=== PATIENT | male | born 1960 | race Caucasian/White ===

== ENCOUNTER 2018-04-29 20:05 | Inpatient (IN) | payer MEDICARE, MEDICAID ==
[~2018-04-29] VITALS: Ht 172.7 cm; Wt 62.1 kg
[2018-04-29 20:59] LABS: CLARITY,URINE CLEAR; COLOR,URINE YELLOW
[2018-04-29 21:00] LABS: BILIRUBIN,URINE NEG (NEG); GLUCOSE,URINE NEG (NEG); NITRITE,URINE NEG (NEG); RBC,URINE 0 /HPF (0-2); UROBILINOGEN,URINE 0.2 mg/dL (0.2 mg/dL); WBC,URINE 0 /HPF (0-4)
[2018-04-29 21:03] LABS: BASO # 0.1 x10^3/uL (0.0-0.2); BASO % 1 % (0-3); EOS # 0.2 x10^3/uL (0.0-0.7); EOS % 3 % (0-3); HEMATOCRIT 37.7 % (39.0-53.0); HEMOGLOBIN 12.9 g/dL (13.0-17.5); LYMPH # 2.3 x10^3/uL (1.0-4.8); LYMPH % 32 % (24-48); MEAN CORPUSCULAR HEMOGLOBIN 31 pg (25-35); MEAN CORPUSCULAR HGB CONC 34 g/dL (31-37); MEAN CORPUSCULAR VOLUME 90 fL (79-100); MONO # 0.6 x10^3/uL (0.0-1.1); MONO % 9 % (0-9); NEUT % 55 % (31-73); PLATELET COUNT 321 x10^3/uL (140-400); RED BLOOD COUNT 4.17 x10^6/uL (4.30-5.70); RED CELL DISTRIBUTION WIDTH 14.5 % (11.5-14.5); WHITE BLOOD COUNT 7.2 x10^3/uL (4.0-11.0)
[2018-04-29 21:09] LABS: BACTERIA,URINE FEW /HPF (0-FEW)
[2018-04-29 21:10] LABS: ALBUMIN 3.1 g/dL (3.4-5.0); ALBUMIN/GLOBULIN RATIO 1.1 (1.0-1.7); CALCIUM 8.3 mg/dL (8.5-10.1); CREATININE 0.6 mg/dL (0.7-1.3); GFR 138.9; POTASSIUM 3.6 mmol/L (3.5-5.1); TOTAL BILIRUBIN 0.2 mg/dL (0.2-1.0); TOTAL PROTEIN 5.9 g/dL (6.4-8.2)
--- NOTE | 2018-04-29 21:28 | EKG ---
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
[2018-04-29] MEDS ORDERED: MULT-706 PO (21:48)
[2018-04-29] MEDS ORDERED: BISA10SU2 RC (21:48)
[2018-04-29] MEDS ORDERED: CLON0.5T PO (21:48)
[2018-04-29] MEDS ORDERED: DULO60CA6 PO (21:48)
[2018-04-29] MEDS ORDERED: GABA-585 PO (21:48)
[2018-04-29] MEDS ORDERED: TRAZ-85 PO (21:48)
[2018-04-29] MEDS ORDERED: TAMS0.4C97 PO (21:48)
[2018-04-29] MEDS ORDERED: MIRT15TA PO (21:48)
[2018-04-29] MEDS ORDERED: LACT20SO PO (21:48)
[2018-04-29] MEDS ORDERED: OLAN5TAB9 PO (21:48)
[2018-04-29] MEDS ORDERED: AMLO10TA4 PO (21:48)
[2018-04-29] MEDS ORDERED: BUSP10TA PO (21:48)
[2018-04-29] MEDS ORDERED: DIVA500T4 PO (21:48)
[2018-04-29] MEDS ORDERED: OXYB5TAB7 PO (21:48)
[2018-04-29] MEDS ORDERED: BACL10TA PO (21:48)
[2018-04-29] MEDS ORDERED: LEVO50TA5 PO (21:48)
[2018-04-29] MEDS ORDERED: GABA800T2 PO (21:48)
[2018-04-29] MEDS ORDERED: POTA20TA4 PO (21:48)
[2018-04-29] MEDS ORDERED: ACET325T9 PO (21:48)
[2018-04-29] MEDS ORDERED: ACETAMINOPHEN 325 MG TABLET PO PRN (23:45)
[2018-04-29] MEDS ORDERED: METHYL SALICYLATE/MENTHOL TOPICAL OINTMENT 29GM TUBE. TP PRN (23:45)
[2018-04-29] MEDS ORDERED: NON FORMULARY ITEM (Bisacodyl 10 MG) RC PRN (23:45)
[2018-04-29] MEDS ORDERED: MAGNESIUM HYDROXIDE 2,400 MG/30 ML ORAL.SUSP. PO PRN (23:45)
[2018-04-29] MEDS ORDERED: MAG HYDROX/AL HYDROX/SIMETH 30 ML ORAL.SUSP PO PRN (23:45)
[2018-04-29 23:57] VITALS: BP 133/85
[2018-04-30 00:11] LABS: VAL ACID 30 mcg/mL (50-100)
[2018-04-30] MEDS: GABAPENTIN 100 MG CAPSULE. PO SCH ×5 (00:30→20:19)
[2018-04-30] MEDS ORDERED: BISACODYL 10 MG SUPP.RECT PR PRN (01:45)
--- NOTE | 2018-04-30 03:13 | ED.ADGEN ---
Past History Past Medical History: Depression, Hypertension, Hypothyroid, Schizophrenia, Other Past Surgical History: Other Alcohol Use: None Drug Use: None Adult General Chief Complaint Chief Complaint medical screening exam HPI HPI Patient is a 58 male with schizophrenia with increased hallucinations and worsening psychosis who presents for medical screening evaluation for psychiatric admission. History is limited due to the patient's mental illness.[] Review of Systems Review of Systems Review symptoms as per history of present illness. a []. Allergies Allergies Allergies Coded Allergies Type Severity Reaction Last Updated Verified No Known Drug Allergies 04/29/18 No Physical Exam Physical Exam Constitutional: Well developed, well nourished, no acute distress, non-toxic appearance. [] HENT: Normocephalic, atraumatic, bilateral external ears normal, oropharynx moist, no oral exudates, nose normal. [] Eyes: PERRLA, EOMI, conjunctiva normal, no discharge. [] Neck: Normal range of motion, no tenderness, supple, no stridor. [] Cardiovascular:Heart rate regular rhythm, no murmur [] Lungs & Thorax: Bilateral breath sounds clear to auscultation [] Abdomen: Bowel sounds normal, soft, no tenderness, no masses, no pulsatile masses. [] Skin: Warm, dry, no erythema, no rash. [] Back: No tenderness, no CVA tenderness. [] Extremities: No tenderness, no cyanosis, no clubbing, ROM intact, no edema. [] Neurologic: Alert and oriented, normal motor function, normal sensory function, no focal deficits noted. [] Current Patient Data Vital Signs Vital Signs Date Time Temp Pulse Resp B/P (MAP) Pulse Ox O2 Delivery O2 Flow Rate FiO2 04/29/18 22:49 66 18 95 Room Air 04/29/18 20:38 97.6 Lab Results Laboratory Tests Test 04/29/18 20:31 04/29/18 20:32 Magnesium Level 1.9 mg/dL (1.8-2.4) Valproic Acid Level 30 mcg/mL (50-100) L Valproic Acid Last Dose Date 04/29/18 Valproic Acid Last Dose Time 2345 White Blood Count 7.2 x10^3/uL (4.0-11.0) Red Blood Count 4.17 x10^6/uL (4.30-5.70) L Hemoglobin 12.9 g/dL (13.0-17.5) L Hematocrit 37.7 % (39.0-53.0) L Mean Corpuscular Volume 90 fL (79-100) Mean Corpuscular Hemoglobin 31 pg (25-35) Mean Corpuscular Hemoglobin Concent 34 g/dL (31-37) Red Cell Distribution Width 14.5 % (11.5-14.5) Platelet Count 321 x10^3/uL (140-400) Neutrophils (%) (Auto) 55 % (31-73) Lymphocytes (%) (Auto) 32 % (24-48) Monocytes (%) (Auto) 9 % (0-9) Eosinophils (%) (Auto) 3 % (0-3) Basophils (%) (Auto) 1 % (0-3) Neutrophils # (Auto) 4.0 x10^3uL (1.8-7.7) Lymphocytes # (Auto) 2.3 x10^3/uL (1.0-4.8) Monocytes # (Auto) 0.6 x10^3/uL (0.0-1.1) Eosinophils # (Auto) 0.2 x10^3/uL (0.0-0.7) Basophils # (Auto) 0.1 x10^3/uL (0.0-0.2) Urine Collection Type Unknown Urine Color Yellow Urine Clarity Clear Urine pH 7.0 Urine Specific [place] 1.010 Urine Protein Neg (NEG-TRACE) Urine Glucose (UA) Neg mg/dL (NEG) Urine Ketones (Stick) Neg mg/dL (NEG) Urine Blood Neg (NEG) Urine Nitrite Neg (NEG) Urine Bilirubin Neg (NEG) Urine Urobilinogen Dipstick 0.2 mg/dL (0.2 mg/dL) Urine Leukocyte Esterase Neg (NEG) Urine RBC 0 /HPF (0-2) Urine WBC 0 /HPF (0-4) Urine Squamous Epithelial Cells None /LPF Urine Bacteria Few /HPF (0-FEW) Sodium Level 135 mmol/L (136-145) L Potassium Level 3.6 mmol/L (3.5-5.1) Chloride Level 100 mmol/L (98-107) Carbon Dioxide Level 31 mmol/L (21-32) Anion Gap 4 (6-14) L Blood Urea Nitrogen 9 mg/dL (8-26) Creatinine 0.6 mg/dL (0.7-1.3) L Estimated GFR (Cockcroft-Gault) 138.9 BUN/Creatinine Ratio 15 (6-20) Glucose Level 114 mg/dL (70-99) H Calcium Level 8.3 mg/dL (8.5-10.1) L Total Bilirubin 0.2 mg/dL (0.2-1.0) Aspartate Amino Transferase (AST) 15 U/L (15-37) Alanine Aminotransferase (ALT) 23 U/L (16-63) Alkaline Phosphatase 78 U/L (46-116) Total Protein 5.9 g/dL (6.4-8.2) L Albumin 3.1 g/dL (3.4-5.0) L Albumin/Globulin Ratio 1.1 (1.0-1.7) EKG EKG EK, no acute ST-T wave changes, QTC 400[] Radiology/Procedures Radiology/Procedures [] Course & Med Decision Making Course & Med Decision Making Pertinent Labs and Imaging studies reviewed. (See chart for details) [Medical stable for hospital admission] Final Impression Final Impression [1. Encounter for medical screening for psychiatric admission] Dragon Disclaimer Dragon Disclaimer This electronic medical record was generated, in whole or in part, using a voice recognition dictation system. VITA MCKENZIE DO Apr 30, 2018 03:13
[2018-04-30 06:24] VITALS: BP 125/82
[2018-04-30] MEDS ORDERED: LEVOTHYROXINE 50 MCG TABLET PO SCH (07:00)
[2018-04-30] MEDS ORDERED: LEVOTHYROXINE SODIUM 50 MCG PO SCH (07:30)
[2018-04-30] MEDS: clonazePAM 0.5 MG TABLET PO SCH ×2 (08:39→13:09)
[2018-04-30] MEDS: DULoxetine HCL 60 MG CAPSULE.DR PO SCH (08:39)
[2018-04-30] MEDS: TAMSULOSIN 0.4 MG CAP.ER.24H. PO SCH (08:39)
[2018-04-30] MEDS: OXYBUTYNIN CHLORIDE 5 MG TABLET PO SCH ×2 (08:39→20:19)
[2018-04-30] MEDS: amLODIPine BESYLATE 10 MG TABLET PO SCH (08:40)
[2018-04-30] MEDS: busPIRone 10 MG TABLET. PO SCH ×3 (08:40→20:19)
[2018-04-30] MEDS: GABAPENTIN 400 MG CAPSULE. PO SCH ×4 (08:40→20:20)
[2018-04-30] MEDS: BACLOFEN 10 MG TABLET PO SCH ×4 (08:40→20:20)
[2018-04-30] MEDS: MULTIVITAMIN with MINERAL TABLET. PO SCH (08:40)
[2018-04-30] MEDS: POTASSIUM CHLORIDE 20 MEQ TABLET.ER. PO SCH (08:40)
[2018-04-30] MEDS: NICOTINE 14MG PATCH. TD SCH (08:41)
[2018-04-30] MEDS: LACTULOSE 20 GM/30 ML SOLUTION. PO SCH ×3 (08:50→20:35)
[2018-04-30] MEDS ORDERED: BUSPIRONE HCL 10 MG PO SCH ×2 (09:00)
[2018-04-30] MEDS ORDERED: NON FORMULARY ITEM (Baclofen 10 MG) PO SCH ×2 (09:00)
[2018-04-30] MEDS ORDERED: MULTIVITAMIN PO SCH (09:00)
[2018-04-30] MEDS ORDERED: AMLODIPINE BESYLATE 10 MG PO SCH (09:00)
[2018-04-30] MEDS ORDERED: IRON PO SCH (09:00)
[2018-04-30] MEDS ORDERED: NON FORMULARY ITEM (Duloxetine Hcl (Cymbalta) 60 MG) PO SCH (09:00)
[2018-04-30] MEDS ORDERED: NON FORMULARY ITEM (Gabapentin 800 MG) PO SCH ×2 (09:00)
[2018-04-30] MEDS ORDERED: FOLIC ACID PO SCH (09:00)
[2018-04-30] MEDS ORDERED: GABAPENTIN 100 MG CAPSULE. PO SCH (09:00)
[2018-04-30 16:53] VITALS: BP 117/81
[2018-04-30 17:11] LABS: THYROXINE 6.2 ug/dL (4.5-12.0)
[2018-04-30] MEDS: traZODone 50 MG TABLET. PO SCH (20:22)
[2018-04-30] MEDS: MIRTAZAPINE 7.5 MG TABLET. PO SCH (20:22)
--- NOTE | 2018-04-30 20:52 | PDOC ---
Exam Note: Nguyễn Note: Please also refer to the separate dictated note~for this date of service dictated separately.~Patient seen individually. Discussed the patient with Nursing staff reviewed the chart.~Reviewed interim history and current functioning. Reviewed vital signs,~Labs/ Radiology~and current medications noted below. Continue current treatment with the changes noted in the dictated addendum note Assessment: Vital Signs: Vital Signs Date Time Temp Pulse Resp B/P (MAP) Pulse Ox O2 Delivery O2 Flow Rate FiO2 04/30/18 16:53 98.2 74 18 117/81 (93) 96 04/29/18 22:49 Room Air Current Medications: Meds: Current Medications Clonazepam (KlonoPIN) 0.5 mg BID92 PO Last administered on 04/30/18at 13:09; Start 04/30/18 at 09:00 Non-Formulary Medication (Buspirone Hcl ) 10 mg TID PO ; Start 04/30/18 at 09:00 ; Stop 04/30/18 at 09:00; Status DC Non-Formulary Medication (Divalproex Sodium (Depakote Er)) 1,000 mg HS PO ; Start 04/30/18 at 21:00; Stop 04/30/18 at 21:00; Status DC Non-Formulary Medication (Duloxetine Hcl (Cymbalta)) 60 mg DAILY PO ; Start at 09:00; Stop 04/30/18 at 09:00; Status DC Non-Formulary Medication (Mirtazapine (Remeron)) 7.5 mg HS PO ; Start 04/30/18 at 21:00; Stop 04/30/18 at 21:00; Status DC Non-Formulary Medication (Olanzapine ) 5 mg HS PO ; Start 04/30/18 at 21:00; Stop 04/30/18 at 21:00; Status DC Non-Formulary Medication (Trazodone Hcl ) 50 mg HS PO ; Start 04/30/18 at 21:00 ; Stop 04/30/18 at 21:00; Status DC Acetaminophen (Tylenol) 650 mg PRN Q6HRS PRN PO PAIN / TEMP; Start 04/29/18 at 23:45 Gabapentin (Neurontin) 100 mg QID PO ; Start 04/30/18 at 09:00; Stop 04/30/18 at 09:00; Status DC Lactulose (Lactulose) 20 gm TID PO Last administered on 04/30/18at 20:35; Start 04/30/18 at 09:00 Oxybutynin Chloride (Ditropan) 2.5 mg BID PO Last administered on 04/30/18at 20: 19; Start 04/30/18 at 09:00 Potassium Chloride (Klor-Con) 20 meq DAILY PO Last administered on 04/30/18at 08 :40; Start 04/30/18 at 09:00 Tamsulosin HCl (Flomax) 0.8 mg DAILY PO Last administered on 04/30/18at 08:39; Start 04/30/18 at 09:00 Non-Formulary Medication (Amlodipine Besylate (Norvasc)) 10 mg DAILY PO ; Start 04/30/18 at 09:00; Stop 04/30/18 at 09:00; Status DC Non-Formulary Medication (Baclofen ) 10 mg QID PO ; Start 04/30/18 at 09:00; Stop 04/30/18 at 09:00; Status DC Non-Formulary Medication (Bisacodyl ) 10 mg PRN DAILY PRN RC CONSTIPATION; Start 04/29/18 at 23:45; Stop 04/30/18 at 01:39; Status DC Non-Formulary Medication (Gabapentin ) 800 mg QID PO ; Start 04/30/18 at 09:00; Stop 04/30/18 at 09:00; Status DC Non-Formulary Medication (Levothyroxine Sodium ) 50 mcg DAILYAC PO ; Start 04/30 at 07:30; Stop 04/30/18 at 07:30; Status DC Non-Formulary Medication (Multivitamin/ Iron/Folic Acid (Multivitamin with Iron Tablet)) 1 tab DAILY PO ; Start 04/30/18 at 09:00; Stop 04/30/18 at 09:00; Status DC Multi-Ingredient Ointment (Analgesic [place]) 1 jing PRN QID PRN TP MUSCLE PAIN; Start 04/29/18 at 23:45 Al Hydroxide/Mg Hydroxide (Mylanta Plus Xs) 15 ml PRN AFTMEALHC PRN PO DYSPEPSIA; Start 04/29/18 at 23:45 Magnesium Hydroxide (Milk Of Magnesia) 2,400 mg PRN QHS PRN PO CONSTIPATION; Start 04/29/18 at 23:45 Nicotine (Nicoderm Cq 14mg) 1 patch DAILY TD Last administered on 04/30/18at 08: 41; Start 04/30/18 at 09:00 Gabapentin (Neurontin) 100 mg QID PO Last administered on 04/30/18at 20:19; Start 04/30/18 at 00:30 Non-Formulary Medication (Baclofen ) 10 mg QID PO ; Start 04/30/18 at 00:00; Stop 04/30/18 at 01:39; Status DC Non-Formulary Medication (Buspirone Hcl ) 10 mg TID PO ; Start 04/30/18 at 00:00 ; Stop 04/30/18 at 01:39; Status DC Non-Formulary Medication (Divalproex Sodium (Depakote Er)) 1,000 mg HS PO ; Start 04/30/18 at 00:00; Stop 04/30/18 at 01:39; Status DC Non-Formulary Medication (Gabapentin ) 800 mg QID PO ; Start 04/30/18 at 00:00; Stop 04/30/18 at 01:39; Status DC Non-Formulary Medication (Mirtazapine (Remeron)) 7.5 mg HS PO ; Start 04/30/18 at 00:00; Stop 04/30/18 at 01:39; Status DC Non-Formulary Medication (Olanzapine ) 5 mg HS PO ; Start 04/30/18 at 00:00; Stop 04/30/18 at 01:39; Status DC Non-Formulary Medication (Trazodone Hcl ) 50 mg HS PO ; Start 04/30/18 at 00:00 ; Stop 04/30/18 at 01:39; Status DC Bisacodyl (Dulcolax Supp) 10 mg PRN DAILY PRN [place] CONSTIPATION; Start 04/30/18 at 01:45 Multivitamins/ Calcium (Thera-M Plus) 1 tab DAILY PO Last administered on at 08:40; Start 04/30/18 at 09:00 Amlodipine Besylate (Norvasc) 10 mg DAILY PO Last administered on 04/30/18at 08: 40; Start 04/30/18 at 09:00 Levothyroxine Sodium (Synthroid) 50 mcg DAILY07 PO Last administered on at 05:52; Start 04/30/18 at 07:00; Stop 04/30/18 at 15:49; Status DC Gabapentin (Neurontin) 800 mg QID PO Last administered on 04/30/18at 20:20; Start 04/30/18 at 09:00 Baclofen (Lioresal) 10 mg QID PO Last administered on 04/30/18at 20:20; Start at 09:00 Mirtazapine (Remeron) 7.5 mg QHS PO Last administered on 04/30/18at 20:22; Start 04/30/18 at 21:00 Olanzapine (ZyPREXA) 5 mg HS PO Last administered on 04/30/18 20:21; Start at 21:00 Trazodone HCl (Desyrel) 50 mg QHS PO Last administered on 04/30/18at 20:22; Start 04/30/18 at 21:00 Duloxetine HCl (Cymbalta) 60 mg DAILY PO Last administered on 04/30/18at 08:39; Start 04/30/18 at 09:00 Divalproex Sodium (Depakote Er) 1,000 mg QHS PO Last administered on 04/30/18at 20:21; Start 04/30/18 at 21:00 Buspirone HCl (Buspar) 10 mg TID PO Last administered on 04/30/18at 20:19; Start 04/30/18 at 09:00 Levothyroxine Sodium (Synthroid) 50 mcg DAILY06 PO ; Start 05/01/18 at 06:00 Active Scripts Active Reported Buspirone Hcl 10 Mg Tablet 10 Mg PO TID Baclofen 10 Mg Tablet 10 Mg PO QID Gabapentin 100 Mg Capsule 100 Mg PO QID Gabapentin 800 Mg Tablet 800 Mg PO QID Levothyroxine Sodium 50 Mcg Tablet 50 Mcg PO DAILYAC Klonopin (Clonazepam) 0.5 Mg Tablet 0.5 Mg PO BID92 Lactulose 20 Gm/30 Ml Solution 30 Ml PO TID Norvasc (Amlodipine Besylate) 10 Mg Tablet 10 Mg PO DAILY Oxybutynin Chloride 5 Mg Tablet 2.5 Mg PO BID Depakote Er (Divalproex Sodium) 500 Mg Tab.er.24h 1,000 Mg PO HS Klor-Con M20 (Potassium Chloride) 20 Meq Tab.er.prt 20 Meq PO DAILY Cymbalta (Duloxetine Hcl) 60 Mg Capsule.dr 60 Mg PO DAILY Multivitamin with Iron Tablet (Multivitamin/Iron/Folic Acid) 1 Each Tablet 1 Tab PO DAILY Flomax (Tamsulosin Hcl) 0.4 Mg Cap.er.24h 0.8 Mg PO DAILY Trazodone Hcl 50 Mg Tablet 50 Mg PO HS Olanzapine 5 Mg Tablet 5 Mg PO HS Remeron (Mirtazapine) 15 Mg Tablet 7.5 Mg PO HS Bisacodyl 10 Mg Supp.rect 10 Mg RC PRN DAILY PRN Tylenol (Acetaminophen) 325 Mg Tablet 650 Mg PO PRN Q6HRS PRN I have reviewed the current psychotropics carefully including drug interactions. Risk benefit ratio favors no change other than as noted in my dictated progress note. Diagnosis: Problems: (1) Adult general medical examination (2) Anxiety disorder (3) Impulse control disorder (4) Schizophrenia, paranoid, chronic with acute exacerbation CATHY EMERY MD Apr 30, 2018 20:52
[2018-04-30] MEDS ORDERED: NON FORMULARY ITEM (Trazodone Hcl 50 MG) PO SCH ×2 (21:00)
[2018-04-30] MEDS ORDERED: OLANZapine 5 MG TABLET PO SCH (21:00)
[2018-04-30] MEDS ORDERED: MIRTAZAPINE 7.5 MG PO SCH ×2 (21:00)
[2018-04-30] MEDS ORDERED: DIVALPROEX SODIUM 1000 MG PO SCH ×2 (21:00)
[2018-04-30] MEDS ORDERED: OLANZAPINE 5 MG PO SCH ×2 (21:00)
[2018-04-30] MEDS ORDERED: DIVALPROEX ER 500 MG TAB.ER.24H PO SCH (21:00)
[2018-04-30 23:12] LABS: HEMOGLOBIN A1C 4.9 % (4.8-5.6)
--- NOTE | 2018-05-01 04:42 | CONS ---
DATE OF CONSULTATION: 04/30/2018 REASON FOR CONSULTATION: Medical management. HISTORY OF PRESENT ILLNESS: The patient is a 58-year-old male patient, a resident at [facility], who was admitted on account of being paranoid, delusional, thinks snakes and people are coming to get him, hiding under his bed, hallucinating of people coming to kill him. All this in a background of schizoaffective disorder, bipolar type with acute exacerbation. PAST MEDICAL HISTORY: Significant for hypertension, hypothyroidism, dysphagia and spinal stenosis. PAST PSYCHIATRIC HISTORY: Significant for anxiety, major depressive disorder, and attention deficit hyperactivity disorder as well as schizoaffective disorder. PAST SURGICAL HISTORY: Significant for back surgery. ALLERGIES: He has no known drug allergies. MEDICATIONS: He is currently on following medications: He is on Flomax 0.8 mg at bedtime, baclofen 10 mg 4 times a day, amlodipine 10 mg once a day, Tylenol 650 mg every 6 hours, clonazepam 0.5 mg twice a day, divalproex sodium 1000 mg at bedtime, gabapentin 800 mg 4 times a day, gabapentin 100 mg 4 times a day, duloxetine 60 mg daily, mirtazapine 7.5 mg at bedtime, trazodone 50 mg at bedtime, olanzapine 5 mg at bedtime, buspirone 10 mg 3 times a day, lactulose 30 mL p.o. t.i.d., potassium chloride 20 mEq daily, bisacodyl 10 mg suppositories rectally daily p.r.n. for constipation, levothyroxine sodium 50 mcg daily, oxybutynin chloride 2.5 mg twice a day, multivitamin 1 tablet once a day. FAMILY HISTORY: Unremarkable. Both parents are . SOCIAL HISTORY: He is single, never , has no children. He continued to smoke, but did stop drinking alcohol about 14 years ago. Does not use any recreational drugs. REVIEW OF SYSTEMS: As per history of present illness. PHYSICAL EXAMINATION GENERAL: When I examined him, he looked well and was in no apparent distress. No pallor, jaundice, cyanosis, or thyromegaly. No jugular venous distension. No limb edema. VITAL SIGNS: His heart rate was 62, blood pressure was 125/82, temperature was 97.8, respiratory rate was 16, and oxygen saturation was 96%. HEAD, EYES, EARS, NOSE, AND THROAT: Showed normocephalic, atraumatic. NECK: Supple. HEART: Showed normal first and second heart sounds with no gallop, rub or murmur. CHEST: Clear to auscultation. No crepitation or rhonchi. ABDOMEN: Distended, soft, nontender. NEUROLOGIC: He was awake, alert, responding appropriately. He has prominent torticollis with his head tilted towards the right side. All his cranial nerves are intact. EXTREMITIES: He moves extremities without difficulty. He apparently ambulates with a walker. LABORATORY DATA: Showed his white cell count was 7200, hemoglobin 13, hematocrit 38, MCV 90 and platelet count of 321,000. His chemistry showed that his serum sodium was 135, potassium 3.6, chloride 100, bicarbonate 31, anion gap of 4, BUN 9, creatinine 0.6, estimated GFR was 139, glucose 114, and calcium was 8.4. Serum iron was 42, TIBC was 301 and iron saturation was 14. His total bilirubin, AST, ALT, alkaline phosphatase were normal. Total protein was 5.9, albumin 3.1. Serum triglyceride 34, total cholesterol was 144, LDL cholesterol was 91, VLDL was 6, and HDL cholesterol was 47 and the ratio of cholesterol to HDL cholesterol ratio was 3. His vitamin B12 was 589. 25-hydroxy vitamin D was 30.4. TSH was 1.576. Urinalysis was unremarkable. Urine toxic screen showed the valproic acid was only 30 and Treponema pallidum antibody was nonreactive. IMPRESSION: In summary, this is a 58-year-old male patient, who was residing at [facility] and who was admitted [facility] on account of being paranoid, delusional, thinks snakes and people are coming to get him, hiding under his bed, and hallucinating people coming to kill him, all this in a background of schizoaffective disorder. Medically, he has multiple medical problems including hypertension, benign prostatic hypertrophy, hypothyroidism, chronic constipation as well as dysphagia and spinal stenosis. All in all, he seemed to be medically stable. His vital signs are within acceptable range. Lab works are all within normal range. I will continue all his current medications. I will obviously review all his lab works that are still pending at the time and make any necessary recommendation. Thank you, Dr. Howard for allowing me to participate in the care of this patient. LOKESH KEBEDE MD DR: ROSELINE/nilda JOB#: [id number] / [id number]
[2018-05-01] MEDS: LEVOTHYROXINE 50 MCG TABLET PO SCH (05:40)
[2018-05-01 06:48] VITALS: BP 122/85
[2018-05-01] MEDS: NICOTINE 14MG PATCH. TD SCH (07:46)
[2018-05-01] MEDS: BACLOFEN 10 MG TABLET PO SCH ×4 (07:46→20:54)
[2018-05-01] MEDS: MULTIVITAMIN with MINERAL TABLET. PO SCH (07:46)
[2018-05-01] MEDS: TAMSULOSIN 0.4 MG CAP.ER.24H. PO SCH (07:46)
[2018-05-01] MEDS: OXYBUTYNIN CHLORIDE 5 MG TABLET PO SCH ×2 (07:47→20:55)
[2018-05-01] MEDS: LACTULOSE 20 GM/30 ML SOLUTION. PO SCH ×3 (07:48→20:54)
[2018-05-01] MEDS: GABAPENTIN 100 MG CAPSULE. PO SCH ×4 (07:48→20:56)
[2018-05-01] MEDS: POTASSIUM CHLORIDE 20 MEQ TABLET.ER. PO SCH (07:48)
[2018-05-01] MEDS: busPIRone 10 MG TABLET. PO SCH ×3 (07:48→20:55)
[2018-05-01] MEDS: GABAPENTIN 400 MG CAPSULE. PO SCH ×4 (07:48→20:55)
[2018-05-01] MEDS: DULoxetine HCL 60 MG CAPSULE.DR PO SCH (07:48)
[2018-05-01] MEDS: amLODIPine BESYLATE 10 MG TABLET PO SCH (07:48)
[2018-05-01] MEDS: clonazePAM 0.5 MG TABLET PO SCH ×2 (07:51→12:23)
[2018-05-01 16:35] VITALS: BP 112/76
--- NOTE | 2018-05-01 18:05 | HP ---
ADMIT DATE: 04/30/2018 PSYCHIATRIC ADMISSION HISTORY/EVALUATION This is a late entry 04/30/2018, covers elements not covered in my initial note. SUMMARY OF PROGRESS: I met with the patient evening of 04/30/2018. Discussed with nursing staff, reviewed the chart. I had previously discussed the patient with the nursing staff on several occasions including prior to the patient's admission to gather historical information from [facility] where the patient had been residing. I had been called by Dr. Dominick Walden MD, the patient's primary care physician on , 04/29/2018 on account of the patient getting increasingly psychotic, paranoid, suspicious. He is thinking the snakes and people are coming to get him. He was hiding under his bed, having hallucinations of people coming to kill him. We made changes in his psychotropics and he had failed all of this resulting in this referral. I had been called by the nursing staff from the [place] [facility] on several occasions over the past week or so on account of the patient's worsening psychosis and even prior to that. The patient is being admitted by his DPOA. CHIEF COMPLAINT: "They are been out to get me. The snakes are coming. It was very difficult. I am glad you are here Dr. Howard." HISTORY OF PRESENT ILLNESS: The patient has a long history of schizoaffective disorder, bipolar type. He had been treated at the [facility] for years and then in [place] and has had inpatient psychiatric hospitalizations along the way as well. I followed him at the [place] [facility] for some time. He has been getting increasingly psychotic, paranoid, with marked mood lability, sleep and appetite changes. We changed the patient's Zyprexa to Risperdal, but none of this was effective. No active suicidal or homicidal ideation, but behaviors have been dangerous and had failed outpatient psychiatric interventions. PAST PSYCHIATRIC HISTORY: As above. MEDICAL HISTORY: Spinal stenosis. The patient is wheelchair bound, hypertension, hypothyroidism, dysphagia. ACCU-CHEKS: None. DIET: Regular. Takes his medications whole. Ambulates with walker. DRUG ALLERGIES: Negative. CODE STATUS: Full code. UA negative. CURRENT PSYCHOTROPICS: Remeron 7.5 at bedtime, Zyprexa 5 mg at bedtime, trazodone 50 at bedtime, Cymbalta 60 mg a day, Depakote ER 1000 mg at bedtime, Klonopin 0.5 b.i.d., BuSpar 10 t.i.d. FAMILY HISTORY: Noncontributory. SOCIAL HISTORY: No alcohol, drug abuse, physical, sexual or elder abuse history is noted. Not known to be a perpetrator. REACTION TO HOSPITALIZATION: The patient very pleased. He is in the hospital where he will be safe. ASSETS: Supportive family, stable living at the [place] [facility]. MENTAL STATUS EXAM: The patient was seen individually evening of 04/30/2018. He is well oriented, recognized me readily, extremely paranoid, suspicious, depressed. Speech has some latency, coherent. Abstraction fair, computation impaired, language function intact, attention span short. Mood and affect withdrawn. He is quite paranoid, suspicious, admits to having intermittent hallucinations. IMPRESSION: Schizoaffective disorder, bipolar type, mixed with psychotic features with acute exacerbation; anxiety disorder, unspecified; impulse control disorder, unspecified. Rest as above. PLAN: Admit to geropsychiatry unit at [facility]. I will see the patient daily individually from a psychiatric standpoint, medical followup with Dr. Rios/Dr. De La Cruz. Continue the patient's current psychotropics. Check a valproic acid level. Consider changing Zyprexa to Risperdal adjusting as an antipsychotic and depending on how he does on this we may consider Clozaril as well. Rest of his psychotropics will continue unchanged. Estimated length of stay 10-12 days. DISPOSITION PLANS: Back to [facility] [facility] when stable. MAN Ty HOWARD MD DR: SARINA/nilda JOB#: [id number] / [id number]
[2018-05-01] MEDS: MIRTAZAPINE 7.5 MG TABLET. PO SCH (20:54)
[2018-05-01] MEDS: traZODone 50 MG TABLET. PO SCH (20:56)
[2018-05-01] MEDS: DIVALPROEX ER 500 MG TAB.ER.24H PO SCH (20:56)
[2018-05-01] MEDS: risperiDONE 1 MG TABLET. PO SCH (20:59)
--- NOTE | 2018-05-01 23:04 | PDOC ---
Exam Note: Nguyễn Note: Please also refer to the separate dictated note~for this date of service dictated separately.~Patient seen individually. Discussed the patient with Nursing staff reviewed the chart.~Reviewed interim history and current functioning. Reviewed vital signs,~Labs/ Radiology~and current medications noted below. Continue current treatment with the changes noted in the dictated addendum note Assessment: Vital Signs: Vital Signs Date Time Temp Pulse Resp B/P (MAP) Pulse Ox O2 Delivery O2 Flow Rate FiO2 05/01/18 16:35 98.3 88 16 112/76 (88) 97 04/29/18 22:49 Room Air I&O Intake and Output 05/01/18 07:00 Intake Total 1440 ml Balance 1440 ml Intake Oral 1440 ml Current Medications: Meds: Current Medications Clonazepam (KlonoPIN) 0.5 mg BID92 PO Last administered on 05/01/18at 12:23; Start 04/30/18 at 09:00 Non-Formulary Medication (Buspirone Hcl ) 10 mg TID PO ; Start 04/30/18 at 09:00 ; Stop 04/30/18 at 09:00; Status DC Non-Formulary Medication (Divalproex Sodium (Depakote Er)) 1,000 mg HS PO ; Start 04/30/18 at 21:00; Stop 04/30/18 at 21:00; Status DC Non-Formulary Medication (Duloxetine Hcl (Cymbalta)) 60 mg DAILY PO ; Start at 09:00; Stop 04/30/18 at 09:00; Status DC Non-Formulary Medication (Mirtazapine (Remeron)) 7.5 mg HS PO ; Start 04/30/18 at 21:00; Stop 04/30/18 at 21:00; Status DC Non-Formulary Medication (Olanzapine ) 5 mg HS PO ; Start 04/30/18 at 21:00; Stop 04/30/18 at 21:00; Status DC Non-Formulary Medication (Trazodone Hcl ) 50 mg HS PO ; Start 04/30/18 at 21:00 ; Stop 04/30/18 at 21:00; Status DC Acetaminophen (Tylenol) 650 mg PRN Q6HRS PRN PO PAIN / TEMP; Start 04/29/18 at 23:45 Gabapentin (Neurontin) 100 mg QID PO ; Start 04/30/18 at 09:00; Stop 04/30/18 at 09:00; Status DC Lactulose (Lactulose) 20 gm TID PO Last administered on 05/01/18at 20:54; Start 04/30/18 at 09:00 Oxybutynin Chloride (Ditropan) 2.5 mg BID PO Last administered on 05/01/18at 20: 55; Start 04/30/18 at 09:00 Potassium Chloride (Klor-Con) 20 meq DAILY PO Last administered on 05/01/18at 07 :48; Start 04/30/18 at 09:00 Tamsulosin HCl (Flomax) 0.8 mg DAILY PO Last administered on 05/01/18at 07:46; Start 04/30/18 at 09:00 Non-Formulary Medication (Amlodipine Besylate (Norvasc)) 10 mg DAILY PO ; Start 04/30/18 at 09:00; Stop 04/30/18 at 09:00; Status DC Non-Formulary Medication (Baclofen ) 10 mg QID PO ; Start 04/30/18 at 09:00; Stop 04/30/18 at 09:00; Status DC Non-Formulary Medication (Bisacodyl ) 10 mg PRN DAILY PRN RC CONSTIPATION; Start 04/29/18 at 23:45; Stop 04/30/18 at 01:39; Status DC Non-Formulary Medication (Gabapentin ) 800 mg QID PO ; Start 04/30/18 at 09:00; Stop 04/30/18 at 09:00; Status DC Non-Formulary Medication (Levothyroxine Sodium ) 50 mcg DAILYAC PO ; Start 04/30 at 07:30; Stop 04/30/18 at 07:30; Status DC Non-Formulary Medication (Multivitamin/ Iron/Folic Acid (Multivitamin with Iron Tablet)) 1 tab DAILY PO ; Start 04/30/18 at 09:00; Stop 04/30/18 at 09:00; Status DC Multi-Ingredient Ointment (Analgesic [place]) 1 jing PRN QID PRN TP MUSCLE PAIN; Start 04/29/18 at 23:45 Al Hydroxide/Mg Hydroxide (Mylanta Plus Xs) 15 ml PRN AFTMEALHC PRN PO DYSPEPSIA; Start 04/29/18 at 23:45 Magnesium Hydroxide (Milk Of Magnesia) 2,400 mg PRN QHS PRN PO CONSTIPATION; Start 04/29/18 at 23:45 Nicotine (Nicoderm Cq 14mg) 1 patch DAILY TD Last administered on 05/01/18at 07: 46; Start 04/30/18 at 09:00 Gabapentin (Neurontin) 100 mg QID PO Last administered on 05/01/18at 20:56; Start 04/30/18 at 00:30 Non-Formulary Medication (Baclofen ) 10 mg QID PO ; Start 04/30/18 at 00:00; Stop 04/30/18 at 01:39; Status DC Non-Formulary Medication (Buspirone Hcl ) 10 mg TID PO ; Start 04/30/18 at 00:00 ; Stop 04/30/18 at 01:39; Status DC Non-Formulary Medication (Divalproex Sodium (Depakote Er)) 1,000 mg HS PO ; Start 04/30/18 at 00:00; Stop 04/30/18 at 01:39; Status DC Non-Formulary Medication (Gabapentin ) 800 mg QID PO ; Start 04/30/18 at 00:00; Stop 04/30/18 at 01:39; Status DC Non-Formulary Medication (Mirtazapine (Remeron)) 7.5 mg HS PO ; Start 04/30/18 at 00:00; Stop 04/30/18 at 01:39; Status DC Non-Formulary Medication (Olanzapine ) 5 mg HS PO ; Start 04/30/18 at 00:00; Stop 04/30/18 at 01:39; Status DC Non-Formulary Medication (Trazodone Hcl ) 50 mg HS PO ; Start 04/30/18 at 00:00 ; Stop 04/30/18 at 01:39; Status DC Bisacodyl (Dulcolax Supp) 10 mg PRN DAILY PRN [place] CONSTIPATION; Start 04/30/18 at 01:45 Multivitamins/ Calcium (Thera-M Plus) 1 tab DAILY PO Last administered on at 07:46; Start 04/30/18 at 09:00 Amlodipine Besylate (Norvasc) 10 mg DAILY PO Last administered on 05/01/18at 07: 48; Start 04/30/18 at 09:00 Levothyroxine Sodium (Synthroid) 50 mcg DAILY07 PO Last administered on at 05:52; Start 04/30/18 at 07:00; Stop 04/30/18 at 15:49; Status DC Gabapentin (Neurontin) 800 mg QID PO Last administered on 05/01/18at 20:55; Start 04/30/18 at 09:00 Baclofen (Lioresal) 10 mg QID PO Last administered on 05/01/18at 20:54; Start at 09:00 Mirtazapine (Remeron) 7.5 mg QHS PO Last administered on 05/01/18 20:54; Start 04/30/18 at 21:00 Olanzapine (ZyPREXA) 5 mg HS PO Last administered on 04/30/18at 20:21; Start at 21:00; Stop 05/01/18 at 18:33; Status DC Trazodone HCl (Desyrel) 50 mg QHS PO Last administered on 05/01/18 20:56; Start 04/30/18 at 21:00 Duloxetine HCl (Cymbalta) 60 mg DAILY PO Last administered on 05/01/18at 07:48; Start 04/30/18 at 09:00 Divalproex Sodium (Depakote Er) 1,000 mg QHS PO Last administered on 04/30/18at 20:21; Start 04/30/18 at 21:00; Stop 05/01/18 at 18:33; Status DC Buspirone HCl (Buspar) 10 mg TID PO Last administered on 05/01/18at 20:55; Start 04/30/18 at 09:00 Levothyroxine Sodium (Synthroid) 50 mcg DAILY06 PO Last administered on at 05:40; Start 05/01/18 at 06:00 Divalproex Sodium (Depakote Er) 1,500 mg QHS PO Last administered on 05/01/18 20:56; Start 05/01/18 at 21:00 Risperidone (RisperDAL) 1 mg QHS PO Last administered on 05/01/18at 20:59; Start 05/01/18 at 21:00 Active Scripts Active Reported Buspirone Hcl 10 Mg Tablet 10 Mg PO TID Baclofen 10 Mg Tablet 10 Mg PO QID Gabapentin 100 Mg Capsule 100 Mg PO QID Gabapentin 800 Mg Tablet 800 Mg PO QID Levothyroxine Sodium 50 Mcg Tablet 50 Mcg PO DAILYAC Klonopin (Clonazepam) 0.5 Mg Tablet 0.5 Mg PO BID92 Lactulose 20 Gm/30 Ml Solution 30 Ml PO TID Norvasc (Amlodipine Besylate) 10 Mg Tablet 10 Mg PO DAILY Oxybutynin Chloride 5 Mg Tablet 2.5 Mg PO BID Depakote Er (Divalproex Sodium) 500 Mg Tab.er.24h 1,000 Mg PO HS Klor-Con M20 (Potassium Chloride) 20 Meq Tab.er.prt 20 Meq PO DAILY Cymbalta (Duloxetine Hcl) 60 Mg Capsule.dr 60 Mg PO DAILY Multivitamin with Iron Tablet (Multivitamin/Iron/Folic Acid) 1 Each Tablet 1 Tab PO DAILY Flomax (Tamsulosin Hcl) 0.4 Mg Cap.er.24h 0.8 Mg PO DAILY Trazodone Hcl 50 Mg Tablet 50 Mg PO HS Olanzapine 5 Mg Tablet 5 Mg PO HS Remeron (Mirtazapine) 15 Mg Tablet 7.5 Mg PO HS Bisacodyl 10 Mg Supp.rect 10 Mg RC PRN DAILY PRN Tylenol (Acetaminophen) 325 Mg Tablet 650 Mg PO PRN Q6HRS PRN I have reviewed the current psychotropics carefully including drug interactions. Risk benefit ratio favors no change other than as noted in my dictated progress note. Diagnosis: Problems: (1) Adult general medical examination (2) Anxiety disorder (3) Impulse control disorder (4) Schizophrenia, paranoid, chronic with acute exacerbation CATHY EMERY MD May 01, 2018 23:04
[2018-05-02] MEDS: LEVOTHYROXINE 50 MCG TABLET PO SCH (06:12)
[2018-05-02 06:26] VITALS: BP 114/71
[2018-05-02] MEDS: DULoxetine HCL 60 MG CAPSULE.DR PO SCH (08:12)
[2018-05-02] MEDS: busPIRone 10 MG TABLET. PO SCH ×3 (08:12→20:06)
[2018-05-02] MEDS: TAMSULOSIN 0.4 MG CAP.ER.24H. PO SCH (08:13)
[2018-05-02] MEDS: OXYBUTYNIN CHLORIDE 5 MG TABLET PO SCH ×2 (08:13→20:06)
[2018-05-02] MEDS: clonazePAM 0.5 MG TABLET PO SCH ×2 (08:14→14:02)
[2018-05-02] MEDS: BACLOFEN 10 MG TABLET PO SCH ×4 (08:15→20:06)
[2018-05-02] MEDS: POTASSIUM CHLORIDE 20 MEQ TABLET.ER. PO SCH (08:15)
[2018-05-02] MEDS: GABAPENTIN 400 MG CAPSULE. PO SCH ×4 (08:15→20:06)
[2018-05-02] MEDS: LACTULOSE 20 GM/30 ML SOLUTION. PO SCH ×3 (08:15→20:05)
[2018-05-02] MEDS: MULTIVITAMIN with MINERAL TABLET. PO SCH (08:15)
[2018-05-02] MEDS: GABAPENTIN 100 MG CAPSULE. PO SCH ×4 (08:16→20:06)
[2018-05-02] MEDS: NICOTINE 14MG PATCH. TD SCH (09:00)
[2018-05-02] MEDS: amLODIPine BESYLATE 10 MG TABLET PO SCH (09:00)
[2018-05-02 16:43] VITALS: BP 120/88
[2018-05-02] MEDS: risperiDONE 1 MG TABLET. PO SCH (20:06)
[2018-05-02] MEDS: MIRTAZAPINE 7.5 MG TABLET. PO SCH (20:06)
[2018-05-02] MEDS: traZODone 50 MG TABLET. PO SCH (20:07)
[2018-05-02] MEDS: DIVALPROEX ER 500 MG TAB.ER.24H PO SCH (20:07)
--- NOTE | 2018-05-02 21:07 | PDOC ---
Exam Note: Nguyễn Note: Please also refer to the separate dictated note~for this date of service dictated separately.~Patient seen individually. Discussed the patient with Nursing staff reviewed the chart.~Reviewed interim history and current functioning. Reviewed vital signs,~Labs/ Radiology~and current medications noted below. Continue current treatment with the changes noted in the dictated addendum note Assessment: Vital Signs: Vital Signs Date Time Temp Pulse Resp B/P (MAP) Pulse Ox O2 Delivery O2 Flow Rate FiO2 05/02/18 16:43 97.5 85 20 120/88 (99) 98 05/02/18 06:26 Room Air I&O Intake and Output 05/02/18 07:00 Intake Total 1320 ml Balance 1320 ml Intake Oral 1320 ml Current Medications: Meds: Current Medications Clonazepam (KlonoPIN) 0.5 mg BID92 PO Last administered on 05/02/18at 14:02; Start 04/30/18 at 09:00 Non-Formulary Medication (Buspirone Hcl ) 10 mg TID PO ; Start 04/30/18 at 09:00 ; Stop 04/30/18 at 09:00; Status DC Non-Formulary Medication (Divalproex Sodium (Depakote Er)) 1,000 mg HS PO ; Start 04/30/18 at 21:00; Stop 04/30/18 at 21:00; Status DC Non-Formulary Medication (Duloxetine Hcl (Cymbalta)) 60 mg DAILY PO ; Start at 09:00; Stop 04/30/18 at 09:00; Status DC Non-Formulary Medication (Mirtazapine (Remeron)) 7.5 mg HS PO ; Start 04/30/18 at 21:00; Stop 04/30/18 at 21:00; Status DC Non-Formulary Medication (Olanzapine ) 5 mg HS PO ; Start 04/30/18 at 21:00; Stop 04/30/18 at 21:00; Status DC Non-Formulary Medication (Trazodone Hcl ) 50 mg HS PO ; Start 04/30/18 at 21:00 ; Stop 04/30/18 at 21:00; Status DC Acetaminophen (Tylenol) 650 mg PRN Q6HRS PRN PO PAIN / TEMP; Start 04/29/18 at 23:45 Gabapentin (Neurontin) 100 mg QID PO ; Start 04/30/18 at 09:00; Stop 04/30/18 at 09:00; Status DC Lactulose (Lactulose) 20 gm TID PO Last administered on 05/02/18at 20:05; Start 04/30/18 at 09:00 Oxybutynin Chloride (Ditropan) 2.5 mg BID PO Last administered on 05/02/18at 20: 06; Start 04/30/18 at 09:00 Potassium Chloride (Klor-Con) 20 meq DAILY PO Last administered on 05/02/18at 08 :15; Start 04/30/18 at 09:00 Tamsulosin HCl (Flomax) 0.8 mg DAILY PO Last administered on 05/02/18at 08:13; Start 04/30/18 at 09:00 Non-Formulary Medication (Amlodipine Besylate (Norvasc)) 10 mg DAILY PO ; Start 04/30/18 at 09:00; Stop 04/30/18 at 09:00; Status DC Non-Formulary Medication (Baclofen ) 10 mg QID PO ; Start 04/30/18 at 09:00; Stop 04/30/18 at 09:00; Status DC Non-Formulary Medication (Bisacodyl ) 10 mg PRN DAILY PRN RC CONSTIPATION; Start 04/29/18 at 23:45; Stop 04/30/18 at 01:39; Status DC Non-Formulary Medication (Gabapentin ) 800 mg QID PO ; Start 04/30/18 at 09:00; Stop 04/30/18 at 09:00; Status DC Non-Formulary Medication (Levothyroxine Sodium ) 50 mcg DAILYAC PO ; Start 04/30 at 07:30; Stop 04/30/18 at 07:30; Status DC Non-Formulary Medication (Multivitamin/ Iron/Folic Acid (Multivitamin with Iron Tablet)) 1 tab DAILY PO ; Start 04/30/18 at 09:00; Stop 04/30/18 at 09:00; Status DC Multi-Ingredient Ointment (Analgesic [place]) 1 jing PRN QID PRN TP MUSCLE PAIN; Start 04/29/18 at 23:45 Al Hydroxide/Mg Hydroxide (Mylanta Plus Xs) 15 ml PRN AFTMEALHC PRN PO DYSPEPSIA; Start 04/29/18 at 23:45 Magnesium Hydroxide (Milk Of Magnesia) 2,400 mg PRN QHS PRN PO CONSTIPATION; Start 04/29/18 at 23:45 Nicotine (Nicoderm Cq 14mg) 1 patch DAILY TD Last administered on 05/01/18at 07: 46; Start 04/30/18 at 09:00 Gabapentin (Neurontin) 100 mg QID PO Last administered on 05/02/18at 20:06; Start 04/30/18 at 00:30 Non-Formulary Medication (Baclofen ) 10 mg QID PO ; Start 04/30/18 at 00:00; Stop 04/30/18 at 01:39; Status DC Non-Formulary Medication (Buspirone Hcl ) 10 mg TID PO ; Start 04/30/18 at 00:00 ; Stop 04/30/18 at 01:39; Status DC Non-Formulary Medication (Divalproex Sodium (Depakote Er)) 1,000 mg HS PO ; Start 04/30/18 at 00:00; Stop 04/30/18 at 01:39; Status DC Non-Formulary Medication (Gabapentin ) 800 mg QID PO ; Start 04/30/18 at 00:00; Stop 04/30/18 at 01:39; Status DC Non-Formulary Medication (Mirtazapine (Remeron)) 7.5 mg HS PO ; Start 04/30/18 at 00:00; Stop 04/30/18 at 01:39; Status DC Non-Formulary Medication (Olanzapine ) 5 mg HS PO ; Start 04/30/18 at 00:00; Stop 04/30/18 at 01:39; Status DC Non-Formulary Medication (Trazodone Hcl ) 50 mg HS PO ; Start 04/30/18 at 00:00 ; Stop 04/30/18 at 01:39; Status DC Bisacodyl (Dulcolax Supp) 10 mg PRN DAILY PRN [place] CONSTIPATION; Start 04/30/18 at 01:45 Multivitamins/ Calcium (Thera-M Plus) 1 tab DAILY PO Last administered on at 08:15; Start 04/30/18 at 09:00 Amlodipine Besylate (Norvasc) 10 mg DAILY PO Last administered on 05/01/18at 07: 48; Start 04/30/18 at 09:00 Levothyroxine Sodium (Synthroid) 50 mcg DAILY07 PO Last administered on 05:52; Start 04/30/18 at 07:00; Stop 04/30/18 at 15:49; Status DC Gabapentin (Neurontin) 800 mg QID PO Last administered on 05/02/18 20:06; Start 04/30/18 at 09:00 Baclofen (Lioresal) 10 mg QID PO Last administered on 05/02/18 20:06; Start at 09:00 Mirtazapine (Remeron) 7.5 mg QHS PO Last administered on 05/02/18 20:06; Start 04/30/18 at 21:00 Olanzapine (ZyPREXA) 5 mg HS PO Last administered on 04/30/18 20:21; Start at 21:00; Stop 05/01/18 at 18:33; Status DC Trazodone HCl (Desyrel) 50 mg QHS PO Last administered on 05/02/18 20:07; Start 04/30/18 at 21:00 Duloxetine HCl (Cymbalta) 60 mg DAILY PO Last administered on 05/02/18 08:12; Start 04/30/18 at 09:00 Divalproex Sodium (Depakote Er) 1,000 mg QHS PO Last administered on 04/30/18 20:21; Start 04/30/18 at 21:00; Stop 05/01/18 at 18:33; Status DC Buspirone HCl (Buspar) 10 mg TID PO Last administered on 05/02/18 20:06; Start 04/30/18 at 09:00 Levothyroxine Sodium (Synthroid) 50 mcg DAILY06 PO Last administered on 06:12; Start 05/01/18 at 06:00 Divalproex Sodium (Depakote Er) 1,500 mg QHS PO Last administered on 05/02/18 20:07; Start 05/01/18 at 21:00 Risperidone (RisperDAL) 1 mg QHS PO Last administered on 05/02/18 20:06; Start 05/01/18 at 21:00 Active Scripts Active Reported Buspirone Hcl 10 Mg Tablet 10 Mg PO TID Baclofen 10 Mg Tablet 10 Mg PO QID Gabapentin 100 Mg Capsule 100 Mg PO QID Gabapentin 800 Mg Tablet 800 Mg PO QID Levothyroxine Sodium 50 Mcg Tablet 50 Mcg PO DAILYAC Klonopin (Clonazepam) 0.5 Mg Tablet 0.5 Mg PO BID92 Lactulose 20 Gm/30 Ml Solution 30 Ml PO TID Norvasc (Amlodipine Besylate) 10 Mg Tablet 10 Mg PO DAILY Oxybutynin Chloride 5 Mg Tablet 2.5 Mg PO BID Depakote Er (Divalproex Sodium) 500 Mg Tab.er.24h 1,000 Mg PO HS Klor-Con M20 (Potassium Chloride) 20 Meq Tab.er.prt 20 Meq PO DAILY Cymbalta (Duloxetine Hcl) 60 Mg Capsule.dr 60 Mg PO DAILY Multivitamin with Iron Tablet (Multivitamin/Iron/Folic Acid) 1 Each Tablet 1 Tab PO DAILY Flomax (Tamsulosin Hcl) 0.4 Mg Cap.er.24h 0.8 Mg PO DAILY Trazodone Hcl 50 Mg Tablet 50 Mg PO HS Olanzapine 5 Mg Tablet 5 Mg PO HS Remeron (Mirtazapine) 15 Mg Tablet 7.5 Mg PO HS Bisacodyl 10 Mg Supp.rect 10 Mg RC PRN DAILY PRN Tylenol (Acetaminophen) 325 Mg Tablet 650 Mg PO PRN Q6HRS PRN I have reviewed the current psychotropics carefully including drug interactions. Risk benefit ratio favors no change other than as noted in my dictated progress note. Diagnosis: Problems: (1) Adult general medical examination (2) Anxiety disorder (3) Impulse control disorder (4) Schizophrenia, paranoid, chronic with acute exacerbation CATHY EMERY MD May 02, 2018 21:07
[2018-05-03] MEDS: LEVOTHYROXINE 50 MCG TABLET PO SCH (05:56)
[2018-05-03 06:06] VITALS: BP 117/76
[2018-05-03] MEDS: DULoxetine HCL 60 MG CAPSULE.DR PO SCH (08:29)
[2018-05-03] MEDS: GABAPENTIN 400 MG CAPSULE. PO SCH ×4 (08:29→21:24)
[2018-05-03] MEDS: LACTULOSE 20 GM/30 ML SOLUTION. PO SCH ×3 (08:29→21:23)
[2018-05-03] MEDS: GABAPENTIN 100 MG CAPSULE. PO SCH ×4 (08:29→21:23)
[2018-05-03] MEDS: BACLOFEN 10 MG TABLET PO SCH ×4 (08:30→21:24)
[2018-05-03] MEDS: TAMSULOSIN 0.4 MG CAP.ER.24H. PO SCH (08:30)
[2018-05-03] MEDS: OXYBUTYNIN CHLORIDE 5 MG TABLET PO SCH ×2 (08:30→21:22)
[2018-05-03] MEDS: MULTIVITAMIN with MINERAL TABLET. PO SCH (08:30)
[2018-05-03] MEDS: POTASSIUM CHLORIDE 20 MEQ TABLET.ER. PO SCH (08:32)
[2018-05-03] MEDS: amLODIPine BESYLATE 10 MG TABLET PO SCH (08:33)
[2018-05-03] MEDS: NICOTINE 14MG PATCH. TD SCH (08:33)
[2018-05-03] MEDS: busPIRone 10 MG TABLET. PO SCH ×3 (08:33→21:24)
[2018-05-03] MEDS: clonazePAM 0.5 MG TABLET PO SCH ×2 (08:39→12:48)
[2018-05-03 16:13] VITALS: BP 102/63
[2018-05-03] MEDS: traZODone 50 MG TABLET. PO SCH (21:23)
[2018-05-03] MEDS: risperiDONE 1 MG TABLET. PO SCH (21:23)
[2018-05-03] MEDS: MIRTAZAPINE 7.5 MG TABLET. PO SCH (21:23)
[2018-05-03] MEDS: DIVALPROEX ER 500 MG TAB.ER.24H PO SCH (21:24)
--- NOTE | 2018-05-03 22:28 | PN ---
DATE: 05/01/2018 This is a late entry for 05/01/2018 covers elements not covered in my initial note. SUBJECTIVE: I met with the patient in the evening. The patient slept 8-1/4 hours previous night. He remains somewhat paranoid, was putting his face next to my mouth while talking and whispers, believing someone was out to get him. REVIEW OF SYSTEMS: Ambulation impaired with walker. No CV, , pulmonary, eye system symptoms on review. MENTAL STATUS EXAM: Reasonably oriented. Speech as noted, abstraction fair, computation unable to do any serial 7 steps. Remembered 1/3 objects at 3 minutes. No active suicidal or homicidal ideation. Attention span short. Language function intact. IMPRESSION: Schizoaffective disorder, bipolar type, mixed with psychotic features; anxiety disorder, unspecified. PLAN: Change the Zyprexa 5 mg at bedtime to Risperdal 1 mg at bedtime. Valproic acid level is subtherapeutic with Depakote ER 1000 mg at bedtime with a level of 30 and we will increase this to 1500 mg at bedtime. Check CBC, CMP, valproic acid level in 3 days. Rest unchanged. MAN Ty EMERY MD DR: SARINA/nilda JOB#: [id number] / [id number]
--- NOTE | 2018-05-03 22:30 | PN ---
DATE: 05/02/2018 This is a late entry for 05/02/2018 covers elements not covered in my initial note. SUBJECTIVE: I met with the patient in the evening. The patient slept 9 hours previous night. He has done well the previous night and during the day, but again as I met with him, he was talking in whispers, putting his hand on his mouth to make sure no one else heard him while he was telling me how they were trying to get him and hurt him. REVIEW OF SYSTEMS: Ambulation impaired with walker. No CV, , pulmonary, eye system symptoms on review. MENTAL STATUS EXAM: Oriented to himself and situation. Speech is coherent, low in volume. Abstraction fair, computation impaired, language function intact. Mood and affect somewhat withdrawn, anxious. LABORATORY DATA: Reviewed. IMPRESSION: Unchanged from initial note. PLAN: No change from initial note. Adjust the Depakote to therapeutic level. Maintain Risperdal, may need to increase this and if he fails this, we will consider Clozaril. MAN Ty EMERY MD DR: SARINA/nilda JOB#: [id number] / [id number]
--- NOTE | 2018-05-03 22:48 | PDOC ---
Exam Note: Nguyễn Note: Please also refer to the separate dictated note~for this date of service dictated separately.~Patient seen individually. Discussed the patient with Nursing staff reviewed the chart.~Reviewed interim history and current functioning. Reviewed vital signs,~Labs/ Radiology~and current medications noted below. Continue current treatment with the changes noted in the dictated addendum note Assessment: Vital Signs: Vital Signs Date Time Temp Pulse Resp B/P (MAP) Pulse Ox O2 Delivery O2 Flow Rate FiO2 05/03/18 16:13 98.2 85 18 102/63 (76) 94 Room Air 05/03/18 06:06 96.0 I&O Intake and Output 05/03/18 07:00 Intake Total 1080 ml Balance 1080 ml Intake Oral 1080 ml Current Medications: Meds: Current Medications Clonazepam (KlonoPIN) 0.5 mg BID92 PO Last administered on 05/03/18at 12:48; Start 04/30/18 at 09:00 Non-Formulary Medication (Buspirone Hcl ) 10 mg TID PO ; Start 04/30/18 at 09:00 ; Stop 04/30/18 at 09:00; Status DC Non-Formulary Medication (Divalproex Sodium (Depakote Er)) 1,000 mg HS PO ; Start 04/30/18 at 21:00; Stop 04/30/18 at 21:00; Status DC Non-Formulary Medication (Duloxetine Hcl (Cymbalta)) 60 mg DAILY PO ; Start at 09:00; Stop 04/30/18 at 09:00; Status DC Non-Formulary Medication (Mirtazapine (Remeron)) 7.5 mg HS PO ; Start 04/30/18 at 21:00; Stop 04/30/18 at 21:00; Status DC Non-Formulary Medication (Olanzapine ) 5 mg HS PO ; Start 04/30/18 at 21:00; Stop 04/30/18 at 21:00; Status DC Non-Formulary Medication (Trazodone Hcl ) 50 mg HS PO ; Start 04/30/18 at 21:00 ; Stop 04/30/18 at 21:00; Status DC Acetaminophen (Tylenol) 650 mg PRN Q6HRS PRN PO PAIN / TEMP; Start 04/29/18 at 23:45 Gabapentin (Neurontin) 100 mg QID PO ; Start 04/30/18 at 09:00; Stop 04/30/18 at 09:00; Status DC Lactulose (Lactulose) 20 gm TID PO Last administered on 05/03/18at 21:23; Start 04/30/18 at 09:00 Oxybutynin Chloride (Ditropan) 2.5 mg BID PO Last administered on 05/03/18at 21: 22; Start 04/30/18 at 09:00 Potassium Chloride (Klor-Con) 20 meq DAILY PO Last administered on 05/03/18at 08 :32; Start 04/30/18 at 09:00 Tamsulosin HCl (Flomax) 0.8 mg DAILY PO Last administered on 05/03/18at 08:30; Start 04/30/18 at 09:00 Non-Formulary Medication (Amlodipine Besylate (Norvasc)) 10 mg DAILY PO ; Start 04/30/18 at 09:00; Stop 04/30/18 at 09:00; Status DC Non-Formulary Medication (Baclofen ) 10 mg QID PO ; Start 04/30/18 at 09:00; Stop 04/30/18 at 09:00; Status DC Non-Formulary Medication (Bisacodyl ) 10 mg PRN DAILY PRN RC CONSTIPATION; Start 04/29/18 at 23:45; Stop 04/30/18 at 01:39; Status DC Non-Formulary Medication (Gabapentin ) 800 mg QID PO ; Start 04/30/18 at 09:00; Stop 04/30/18 at 09:00; Status DC Non-Formulary Medication (Levothyroxine Sodium ) 50 mcg DAILYAC PO ; Start 04/30 at 07:30; Stop 04/30/18 at 07:30; Status DC Non-Formulary Medication (Multivitamin/ Iron/Folic Acid (Multivitamin with Iron Tablet)) 1 tab DAILY PO ; Start 04/30/18 at 09:00; Stop 04/30/18 at 09:00; Status DC Multi-Ingredient Ointment (Analgesic [place]) 1 jing PRN QID PRN TP MUSCLE PAIN; Start 04/29/18 at 23:45 Al Hydroxide/Mg Hydroxide (Mylanta Plus Xs) 15 ml PRN AFTMEALHC PRN PO DYSPEPSIA; Start 04/29/18 at 23:45 Magnesium Hydroxide (Milk Of Magnesia) 2,400 mg PRN QHS PRN PO CONSTIPATION; Start 04/29/18 at 23:45 Nicotine (Nicoderm Cq 14mg) 1 patch DAILY TD Last administered on 05/03/18at 08: 33; Start 04/30/18 at 09:00 Gabapentin (Neurontin) 100 mg QID PO Last administered on 05/03/18at 21:23; Start 04/30/18 at 00:30 Non-Formulary Medication (Baclofen ) 10 mg QID PO ; Start 04/30/18 at 00:00; Stop 04/30/18 at 01:39; Status DC Non-Formulary Medication (Buspirone Hcl ) 10 mg TID PO ; Start 04/30/18 at 00:00 ; Stop 04/30/18 at 01:39; Status DC Non-Formulary Medication (Divalproex Sodium (Depakote Er)) 1,000 mg HS PO ; Start 04/30/18 at 00:00; Stop 04/30/18 at 01:39; Status DC Non-Formulary Medication (Gabapentin ) 800 mg QID PO ; Start 04/30/18 at 00:00; Stop 04/30/18 at 01:39; Status DC Non-Formulary Medication (Mirtazapine (Remeron)) 7.5 mg HS PO ; Start 04/30/18 at 00:00; Stop 04/30/18 at 01:39; Status DC Non-Formulary Medication (Olanzapine ) 5 mg HS PO ; Start 04/30/18 at 00:00; Stop 04/30/18 at 01:39; Status DC Non-Formulary Medication (Trazodone Hcl ) 50 mg HS PO ; Start 04/30/18 at 00:00 ; Stop 04/30/18 at 01:39; Status DC Bisacodyl (Dulcolax Supp) 10 mg PRN DAILY PRN [place] CONSTIPATION; Start 04/30/18 at 01:45 Multivitamins/ Calcium (Thera-M Plus) 1 tab DAILY PO Last administered on at 08:30; Start 04/30/18 at 09:00 Amlodipine Besylate (Norvasc) 10 mg DAILY PO Last administered on 05/03/18at 08: 33; Start 04/30/18 at 09:00 Levothyroxine Sodium (Synthroid) 50 mcg DAILY07 PO Last administered on 05:52; Start 04/30/18 at 07:00; Stop 04/30/18 at 15:49; Status DC Gabapentin (Neurontin) 800 mg QID PO Last administered on 05/03/18 21:24; Start 04/30/18 at 09:00 Baclofen (Lioresal) 10 mg QID PO Last administered on 05/03/18 21:24; Start at 09:00 Mirtazapine (Remeron) 7.5 mg QHS PO Last administered on 05/03/18 21:23; Start 04/30/18 at 21:00 Olanzapine (ZyPREXA) 5 mg HS PO Last administered on 04/30/18 20:21; Start at 21:00; Stop 05/01/18 at 18:33; Status DC Trazodone HCl (Desyrel) 50 mg QHS PO Last administered on 05/03/18 21:23; Start 04/30/18 at 21:00 Duloxetine HCl (Cymbalta) 60 mg DAILY PO Last administered on 05/03/18 08:29; Start 04/30/18 at 09:00 Divalproex Sodium (Depakote Er) 1,000 mg QHS PO Last administered on 04/30/18 20:21; Start 04/30/18 at 21:00; Stop 05/01/18 at 18:33; Status DC Buspirone HCl (Buspar) 10 mg TID PO Last administered on 05/03/18 21:24; Start 04/30/18 at 09:00 Levothyroxine Sodium (Synthroid) 50 mcg DAILY06 PO Last administered on 05:56; Start 05/01/18 at 06:00 Divalproex Sodium (Depakote Er) 1,500 mg QHS PO Last administered on 05/03/18 21:24; Start 05/01/18 at 21:00 Risperidone (RisperDAL) 1 mg QHS PO Last administered on 05/03/18 21:23; Start 05/01/18 at 21:00 Active Scripts Active Reported Buspirone Hcl 10 Mg Tablet 10 Mg PO TID Baclofen 10 Mg Tablet 10 Mg PO QID Gabapentin 100 Mg Capsule 100 Mg PO QID Gabapentin 800 Mg Tablet 800 Mg PO QID Levothyroxine Sodium 50 Mcg Tablet 50 Mcg PO DAILYAC Klonopin (Clonazepam) 0.5 Mg Tablet 0.5 Mg PO BID92 Lactulose 20 Gm/30 Ml Solution 30 Ml PO TID Norvasc (Amlodipine Besylate) 10 Mg Tablet 10 Mg PO DAILY Oxybutynin Chloride 5 Mg Tablet 2.5 Mg PO BID Depakote Er (Divalproex Sodium) 500 Mg Tab.er.24h 1,000 Mg PO HS Klor-Con M20 (Potassium Chloride) 20 Meq Tab.er.prt 20 Meq PO DAILY Cymbalta (Duloxetine Hcl) 60 Mg Capsule.dr 60 Mg PO DAILY Multivitamin with Iron Tablet (Multivitamin/Iron/Folic Acid) 1 Each Tablet 1 Tab PO DAILY Flomax (Tamsulosin Hcl) 0.4 Mg Cap.er.24h 0.8 Mg PO DAILY Trazodone Hcl 50 Mg Tablet 50 Mg PO HS Olanzapine 5 Mg Tablet 5 Mg PO HS Remeron (Mirtazapine) 15 Mg Tablet 7.5 Mg PO HS Bisacodyl 10 Mg Supp.rect 10 Mg RC PRN DAILY PRN Tylenol (Acetaminophen) 325 Mg Tablet 650 Mg PO PRN Q6HRS PRN I have reviewed the current psychotropics carefully including drug interactions. Risk benefit ratio favors no change other than as noted in my dictated progress note. Diagnosis: Problems: (1) Adult general medical examination (2) Anxiety disorder (3) Impulse control disorder (4) Schizophrenia, paranoid, chronic with acute exacerbation CATHY EMERY MD May 03, 2018 22:48
[2018-05-04] MEDS: LEVOTHYROXINE 50 MCG TABLET PO SCH (05:23)
[2018-05-04 05:48] VITALS: BP 103/69
[2018-05-04 08:06] LABS: ALBUMIN 3.2 g/dL (3.4-5.0); CALCIUM 8.5 mg/dL (8.5-10.1); CREATININE 0.7 mg/dL (0.7-1.3); GFR 116.2; POTASSIUM 4.2 mmol/L (3.5-5.1); TOTAL BILIRUBIN 0.4 mg/dL (0.2-1.0); TOTAL PROTEIN 6.4 g/dL (6.4-8.2)
[2018-05-04 08:12] LABS: VAL ACID 65 mcg/mL (50-100)
[2018-05-04 08:17] LABS: BASO # 0.1 x10^3/uL (0.0-0.2); BASO % 1 % (0-3); EOS # 0.2 x10^3/uL (0.0-0.7); EOS % 4 % (0-3); HEMATOCRIT 40.9 % (39.0-53.0); LYMPH # 1.7 x10^3/uL (1.0-4.8); LYMPH % 33 % (24-48); MEAN CORPUSCULAR HEMOGLOBIN 31 pg (25-35); MEAN CORPUSCULAR HGB CONC 34 g/dL (31-37); MEAN CORPUSCULAR VOLUME 90 fL (79-100); MONO # 0.5 x10^3/uL (0.0-1.1); MONO % 9 % (0-9); NEUT # 2.7 x10^3uL (1.8-7.7); NEUT % 53 % (31-73); PLATELET COUNT 298 x10^3/uL (140-400); RED BLOOD COUNT 4.55 x10^6/uL (4.30-5.70); RED CELL DISTRIBUTION WIDTH 14.4 % (11.5-14.5); WHITE BLOOD COUNT 5.2 x10^3/uL (4.0-11.0)
[2018-05-04] MEDS: GABAPENTIN 100 MG CAPSULE. PO SCH ×4 (10:43→20:05)
[2018-05-04] MEDS: DULoxetine HCL 60 MG CAPSULE.DR PO SCH (10:43)
[2018-05-04] MEDS: MULTIVITAMIN with MINERAL TABLET. PO SCH (10:44)
[2018-05-04] MEDS: POTASSIUM CHLORIDE 20 MEQ TABLET.ER. PO SCH (10:44)
[2018-05-04] MEDS: TAMSULOSIN 0.4 MG CAP.ER.24H. PO SCH (10:45)
[2018-05-04] MEDS: GABAPENTIN 400 MG CAPSULE. PO SCH ×4 (10:45→20:06)
[2018-05-04] MEDS: amLODIPine BESYLATE 10 MG TABLET PO SCH (10:45)
[2018-05-04] MEDS: BACLOFEN 10 MG TABLET PO SCH ×4 (10:46→20:06)
[2018-05-04] MEDS: OXYBUTYNIN CHLORIDE 5 MG TABLET PO SCH ×2 (10:46→20:06)
[2018-05-04] MEDS: busPIRone 10 MG TABLET. PO SCH ×3 (10:46→20:06)
[2018-05-04] MEDS: NICOTINE 14MG PATCH. TD SCH (10:47)
[2018-05-04] MEDS: LACTULOSE 20 GM/30 ML SOLUTION. PO SCH ×4 (10:48→20:04)
[2018-05-04] MEDS: clonazePAM 0.5 MG TABLET PO SCH ×2 (10:48→13:16)
[2018-05-04 15:46] VITALS: BP 105/71
[2018-05-04] MEDS: MIRTAZAPINE 7.5 MG TABLET. PO SCH (20:04)
[2018-05-04] MEDS: traZODone 50 MG TABLET. PO SCH (20:04)
[2018-05-04] MEDS: DIVALPROEX ER 500 MG TAB.ER.24H PO SCH (20:05)
[2018-05-04] MEDS: risperiDONE 1 MG TABLET. PO SCH (20:07)
[2018-05-04] MEDS ORDERED: risperiDONE 0.25 MG TABLET. PO SCH (21:00)
--- NOTE | 2018-05-04 21:00 | PDOC ---
Exam Note: Nguyễn Note: Please also refer to the separate dictated note~for this date of service dictated separately.~Patient seen individually. Discussed the patient with Nursing staff reviewed the chart.~Reviewed interim history and current functioning. Reviewed vital signs,~Labs/ Radiology~and current medications noted below. Continue current treatment with the changes noted in the dictated addendum note Assessment: Vital Signs: Vital Signs Date Time Temp Pulse Resp B/P (MAP) Pulse Ox O2 Delivery O2 Flow Rate FiO2 05/04/18 15:46 97.8 82 18 105/71 (82) 96 Room Air 05/03/18 06:06 96.0 I&O Intake and Output 05/04/18 07:00 Intake Total 960 ml Balance 960 ml Intake Oral 960 ml Labs: Laboratory Tests Test 05/04/18 07:39 White Blood Count 5.2 x10^3/uL (4.0-11.0) Red Blood Count 4.55 x10^6/uL (4.30-5.70) Hemoglobin 14.0 g/dL (13.0-17.5) Hematocrit 40.9 % (39.0-53.0) Mean Corpuscular Volume 90 fL (79-100) Mean Corpuscular Hemoglobin 31 pg (25-35) Mean Corpuscular Hemoglobin Concent 34 g/dL (31-37) Red Cell Distribution Width 14.4 % (11.5-14.5) Platelet Count 298 x10^3/uL (140-400) Neutrophils (%) (Auto) 53 % (31-73) Lymphocytes (%) (Auto) 33 % (24-48) Monocytes (%) (Auto) 9 % (0-9) Eosinophils (%) (Auto) 4 % (0-3) H Basophils (%) (Auto) 1 % (0-3) Neutrophils # (Auto) 2.7 x10^3uL (1.8-7.7) Lymphocytes # (Auto) 1.7 x10^3/uL (1.0-4.8) Monocytes # (Auto) 0.5 x10^3/uL (0.0-1.1) Eosinophils # (Auto) 0.2 x10^3/uL (0.0-0.7) Basophils # (Auto) 0.1 x10^3/uL (0.0-0.2) Sodium Level 136 mmol/L (136-145) Potassium Level 4.2 mmol/L (3.5-5.1) Chloride Level 99 mmol/L (98-107) Carbon Dioxide Level 34 mmol/L (21-32) H Anion Gap 3 (6-14) L Blood Urea Nitrogen 9 mg/dL (8-26) Creatinine 0.7 mg/dL (0.7-1.3) Estimated GFR (Cockcroft-Gault) 116.2 BUN/Creatinine Ratio 13 (6-20) Glucose Level 84 mg/dL (70-99) Calcium Level 8.5 mg/dL (8.5-10.1) Total Bilirubin 0.4 mg/dL (0.2-1.0) Aspartate Amino Transferase (AST) 11 U/L (15-37) L Alanine Aminotransferase (ALT) 20 U/L (16-63) Alkaline Phosphatase 89 U/L (46-116) Total Protein 6.4 g/dL (6.4-8.2) Albumin 3.2 g/dL (3.4-5.0) L Albumin/Globulin Ratio 1.0 (1.0-1.7) Valproic Acid Level 65 mcg/mL (50-100) Valproic Acid Last Dose Date 05/03/2018 Valproic Acid Last Dose Time 2100 Current Medications: Meds: Current Medications Clonazepam (KlonoPIN) 0.5 mg BID92 PO Last administered on 05/04/18at 13:16; Start 04/30/18 at 09:00 Non-Formulary Medication (Buspirone Hcl ) 10 mg TID PO ; Start 04/30/18 at 09:00 ; Stop 04/30/18 at 09:00; Status DC Non-Formulary Medication (Divalproex Sodium (Depakote Er)) 1,000 mg HS PO ; Start 04/30/18 at 21:00; Stop 04/30/18 at 21:00; Status DC Non-Formulary Medication (Duloxetine Hcl (Cymbalta)) 60 mg DAILY PO ; Start at 09:00; Stop 04/30/18 at 09:00; Status DC Non-Formulary Medication (Mirtazapine (Remeron)) 7.5 mg HS PO ; Start 04/30/18 at 21:00; Stop 04/30/18 at 21:00; Status DC Non-Formulary Medication (Olanzapine ) 5 mg HS PO ; Start 04/30/18 at 21:00; Stop 04/30/18 at 21:00; Status DC Non-Formulary Medication (Trazodone Hcl ) 50 mg HS PO ; Start 04/30/18 at 21:00 ; Stop 04/30/18 at 21:00; Status DC Acetaminophen (Tylenol) 650 mg PRN Q6HRS PRN PO PAIN / TEMP; Start 04/29/18 at 23:45 Gabapentin (Neurontin) 100 mg QID PO ; Start 04/30/18 at 09:00; Stop 04/30/18 at 09:00; Status DC Lactulose (Lactulose) 20 gm TID PO Last administered on 05/04/18at 20:04; Start 04/30/18 at 09:00 Oxybutynin Chloride (Ditropan) 2.5 mg BID PO Last administered on 05/04/18at 20: 06; Start 04/30/18 at 09:00 Potassium Chloride (Klor-Con) 20 meq DAILY PO Last administered on 05/04/18at 10 :44; Start 04/30/18 at 09:00 Tamsulosin HCl (Flomax) 0.8 mg DAILY PO Last administered on 05/04/18at 10:45; Start 04/30/18 at 09:00 Non-Formulary Medication (Amlodipine Besylate (Norvasc)) 10 mg DAILY PO ; Start 04/30/18 at 09:00; Stop 04/30/18 at 09:00; Status DC Non-Formulary Medication (Baclofen ) 10 mg QID PO ; Start 04/30/18 at 09:00; Stop 04/30/18 at 09:00; Status DC Non-Formulary Medication (Bisacodyl ) 10 mg PRN DAILY PRN RC CONSTIPATION; Start 04/29/18 at 23:45; Stop 04/30/18 at 01:39; Status DC Non-Formulary Medication (Gabapentin ) 800 mg QID PO ; Start 04/30/18 at 09:00; Stop 04/30/18 at 09:00; Status DC Non-Formulary Medication (Levothyroxine Sodium ) 50 mcg DAILYAC PO ; Start 04/30 at 07:30; Stop 04/30/18 at 07:30; Status DC Non-Formulary Medication (Multivitamin/ Iron/Folic Acid (Multivitamin with Iron Tablet)) 1 tab DAILY PO ; Start 04/30/18 at 09:00; Stop 04/30/18 at 09:00; Status DC Multi-Ingredient Ointment (Analgesic [place]) 1 jing PRN QID PRN TP MUSCLE PAIN; Start 04/29/18 at 23:45 Al Hydroxide/Mg Hydroxide (Mylanta Plus Xs) 15 ml PRN AFTMEALHC PRN PO DYSPEPSIA; Start 04/29/18 at 23:45 Magnesium Hydroxide (Milk Of Magnesia) 2,400 mg PRN QHS PRN PO CONSTIPATION; Start 04/29/18 at 23:45 Nicotine (Nicoderm Cq 14mg) 1 patch DAILY TD Last administered on 05/04/18at 10: 47; Start 04/30/18 at 09:00 Gabapentin (Neurontin) 100 mg QID PO Last administered on 05/04/18at 20:05; Start 04/30/18 at 00:30 Non-Formulary Medication (Baclofen ) 10 mg QID PO ; Start 04/30/18 at 00:00; Stop 04/30/18 at 01:39; Status DC Non-Formulary Medication (Buspirone Hcl ) 10 mg TID PO ; Start 04/30/18 at 00:00 ; Stop 04/30/18 at 01:39; Status DC Non-Formulary Medication (Divalproex Sodium (Depakote Er)) 1,000 mg HS PO ; Start 04/30/18 at 00:00; Stop 04/30/18 at 01:39; Status DC Non-Formulary Medication (Gabapentin ) 800 mg QID PO ; Start 04/30/18 at 00:00; Stop 04/30/18 at 01:39; Status DC Non-Formulary Medication (Mirtazapine (Remeron)) 7.5 mg HS PO ; Start 04/30/18 at 00:00; Stop 04/30/18 at 01:39; Status DC Non-Formulary Medication (Olanzapine ) 5 mg HS PO ; Start 04/30/18 at 00:00; Stop 04/30/18 at 01:39; Status DC Non-Formulary Medication (Trazodone Hcl ) 50 mg HS PO ; Start 04/30/18 at 00:00 ; Stop 04/30/18 at 01:39; Status DC Bisacodyl (Dulcolax Supp) 10 mg PRN DAILY PRN IN CONSTIPATION; Start 04/30/18 at 01:45 Multivitamins/ Calcium (Thera-M Plus) 1 tab DAILY PO Last administered on 10:44; Start 04/30/18 at 09:00 Amlodipine Besylate (Norvasc) 10 mg DAILY PO Last administered on 05/04/18 10: 45; Start 04/30/18 at 09:00 Levothyroxine Sodium (Synthroid) 50 mcg DAILY07 PO Last administered on 05:52; Start 04/30/18 at 07:00; Stop 04/30/18 at 15:49; Status DC Gabapentin (Neurontin) 800 mg QID PO Last administered on 05/04/18 20:06; Start 04/30/18 at 09:00 Baclofen (Lioresal) 10 mg QID PO Last administered on 05/04/18at 20:06; Start at 09:00 Mirtazapine (Remeron) 7.5 mg QHS PO Last administered on 05/04/18 20:04; Start 04/30/18 at 21:00 Olanzapine (ZyPREXA) 5 mg HS PO Last administered on 04/30/18at 20:21; Start at 21:00; Stop 05/01/18 at 18:33; Status DC Trazodone HCl (Desyrel) 50 mg QHS PO Last administered on 05/04/18at 20:04; Start 04/30/18 at 21:00 Duloxetine HCl (Cymbalta) 60 mg DAILY PO Last administered on 05/04/18at 10:43; Start 04/30/18 at 09:00 Divalproex Sodium (Depakote Er) 1,000 mg QHS PO Last administered on 04/30/18at 20:21; Start 04/30/18 at 21:00; Stop 05/01/18 at 18:33; Status DC Buspirone HCl (Buspar) 10 mg TID PO Last administered on 05/04/18at 20:06; Start 04/30/18 at 09:00 Levothyroxine Sodium (Synthroid) 50 mcg DAILY06 PO Last administered on at 05:23; Start 05/01/18 at 06:00 Divalproex Sodium (Depakote Er) 1,500 mg QHS PO Last administered on 05/04/18at 20:05; Start 05/01/18 at 21:00 Risperidone (RisperDAL) 1 mg QHS PO Last administered on 05/03/18at 21:23; Start 05/01/18 at 21:00; Stop 05/04/18 at 17:21; Status DC Risperidone (RisperDAL) 1 mg QHS PO Last administered on 05/04/18at 20:07; Start 05/04/18 at 21:00 Risperidone (RisperDAL) 0.25 mg QHS PO Last administered on 05/04/18at 20:07; Start 05/04/18 at 21:00 Active Scripts Active Reported Buspirone Hcl 10 Mg Tablet 10 Mg PO TID Baclofen 10 Mg Tablet 10 Mg PO QID Gabapentin 100 Mg Capsule 100 Mg PO QID Gabapentin 800 Mg Tablet 800 Mg PO QID Levothyroxine Sodium 50 Mcg Tablet 50 Mcg PO DAILYAC Klonopin (Clonazepam) 0.5 Mg Tablet 0.5 Mg PO BID92 Lactulose 20 Gm/30 Ml Solution 30 Ml PO TID Norvasc (Amlodipine Besylate) 10 Mg Tablet 10 Mg PO DAILY Oxybutynin Chloride 5 Mg Tablet 2.5 Mg PO BID Depakote Er (Divalproex Sodium) 500 Mg Tab.er.24h 1,000 Mg PO HS Klor-Con M20 (Potassium Chloride) 20 Meq Tab.er.prt 20 Meq PO DAILY Cymbalta (Duloxetine Hcl) 60 Mg Capsule.dr 60 Mg PO DAILY Multivitamin with Iron Tablet (Multivitamin/Iron/Folic Acid) 1 Each Tablet 1 Tab PO DAILY Flomax (Tamsulosin Hcl) 0.4 Mg Cap.er.24h 0.8 Mg PO DAILY Trazodone Hcl 50 Mg Tablet 50 Mg PO HS Olanzapine 5 Mg Tablet 5 Mg PO HS Remeron (Mirtazapine) 15 Mg Tablet 7.5 Mg PO HS Bisacodyl 10 Mg Supp.rect 10 Mg RC PRN DAILY PRN Tylenol (Acetaminophen) 325 Mg Tablet 650 Mg PO PRN Q6HRS PRN I have reviewed the current psychotropics carefully including drug interactions. Risk benefit ratio favors no change other than as noted in my dictated progress note. Diagnosis: Problems: (1) Adult general medical examination (2) Anxiety disorder (3) Impulse control disorder (4) Schizophrenia, paranoid, chronic with acute exacerbation CATHY EMERY MD May 04, 2018 21:00
--- NOTE | 2018-05-04 23:03 | PN ---
DATE: 05/03/2018 This is a late entry for 05/03/2018 covers elements not covered in my initial note. SUBJECTIVE: I met with the patient in the evening. The patient slept reasonably previous night. He is still paranoid, suspicious, talking to me in whispers, but less so than before. REVIEW OF SYSTEMS: Ambulation impaired with walker. No CV, , pulmonary, eye, ENT system symptoms on review. Reliability varies. MENTAL STATUS EXAM: Reasonably oriented. Speech is as noted, abstraction fair, computation impaired, language function intact. Mood and affect somewhat withdrawn. LABORATORY DATA: Reviewed. IMPRESSION: Schizoaffective disorder, bipolar type, mixed with psychotic features; anxiety disorder, unspecified. Rest unchanged. PLAN: Continue psychotropics at current dosage. May need to increase Risperdal beyond the 1 mg at bedtime he is taking for now. MAN Ty EMERY MD DR: SARINA/nilda JOB#: [id number] / [id number]
[2018-05-05 05:39] VITALS: BP 130/77
[2018-05-05] MEDS: LEVOTHYROXINE 50 MCG TABLET PO SCH ×2 (06:05→09:56)
[2018-05-05] MEDS: NICOTINE 14MG PATCH. TD SCH (09:52)
[2018-05-05] MEDS: GABAPENTIN 100 MG CAPSULE. PO SCH ×4 (09:52→19:54)
[2018-05-05] MEDS: amLODIPine BESYLATE 10 MG TABLET PO SCH (09:52)
[2018-05-05] MEDS: GABAPENTIN 400 MG CAPSULE. PO SCH ×4 (09:53→19:55)
[2018-05-05] MEDS: DULoxetine HCL 60 MG CAPSULE.DR PO SCH (09:54)
[2018-05-05] MEDS: MULTIVITAMIN with MINERAL TABLET. PO SCH (09:55)
[2018-05-05] MEDS: OXYBUTYNIN CHLORIDE 5 MG TABLET PO SCH ×2 (09:55→19:55)
[2018-05-05] MEDS: TAMSULOSIN 0.4 MG CAP.ER.24H. PO SCH (09:55)
[2018-05-05] MEDS: BACLOFEN 10 MG TABLET PO SCH ×4 (09:55→19:53)
[2018-05-05] MEDS: busPIRone 10 MG TABLET. PO SCH ×3 (09:56→19:53)
[2018-05-05] MEDS: POTASSIUM CHLORIDE 20 MEQ TABLET.ER. PO SCH (09:56)
[2018-05-05] MEDS: LACTULOSE 20 GM/30 ML SOLUTION. PO SCH ×3 (09:57→19:55)
[2018-05-05] MEDS: clonazePAM 0.5 MG TABLET PO SCH ×2 (10:01→15:07)
[2018-05-05 14:54] VITALS: BP 116/79
[2018-05-05 16:28] VITALS: BP 116/79
[2018-05-05] MEDS: DIVALPROEX ER 500 MG TAB.ER.24H PO SCH (19:53)
[2018-05-05] MEDS: traZODone 50 MG TABLET. PO SCH (19:53)
[2018-05-05] MEDS: MIRTAZAPINE 7.5 MG TABLET. PO SCH (19:53)
[2018-05-05] MEDS: risperiDONE 1 MG TABLET. PO SCH (19:54)
[2018-05-05] MEDS: risperiDONE 0.5 MG TABLET. PO SCH (19:59)
--- NOTE | 2018-05-05 20:49 | PDOC ---
Exam Note: Nguyễn Note: Please also refer to the separate dictated note~for this date of service dictated separately.~Patient seen individually. Discussed the patient with Nursing staff reviewed the chart.~Reviewed interim history and current functioning. Reviewed vital signs,~Labs/ Radiology~and current medications noted below. Continue current treatment with the changes noted in the dictated addendum note Assessment: Vital Signs: Vital Signs Date Time Temp Pulse Resp B/P (MAP) Pulse Ox O2 Delivery O2 Flow Rate FiO2 05/05/18 16:28 98.9 105 18 116/79 (91) 96 05/05/18 14:54 Room Air 05/03/18 06:06 96.0 I&O Intake and Output 05/05/18 07:00 Intake Total 1800 ml Balance 1800 ml Intake Oral 1800 ml # Bowel Movements 6 Current Medications: Meds: Current Medications Clonazepam (KlonoPIN) 0.5 mg BID92 PO Last administered on 05/05/18at 15:07; Start 04/30/18 at 09:00 Non-Formulary Medication (Buspirone Hcl ) 10 mg TID PO ; Start 04/30/18 at 09:00 ; Stop 04/30/18 at 09:00; Status DC Non-Formulary Medication (Divalproex Sodium (Depakote Er)) 1,000 mg HS PO ; Start 04/30/18 at 21:00; Stop 04/30/18 at 21:00; Status DC Non-Formulary Medication (Duloxetine Hcl (Cymbalta)) 60 mg DAILY PO ; Start at 09:00; Stop 04/30/18 at 09:00; Status DC Non-Formulary Medication (Mirtazapine (Remeron)) 7.5 mg HS PO ; Start 04/30/18 at 21:00; Stop 04/30/18 at 21:00; Status DC Non-Formulary Medication (Olanzapine ) 5 mg HS PO ; Start 04/30/18 at 21:00; Stop 04/30/18 at 21:00; Status DC Non-Formulary Medication (Trazodone Hcl ) 50 mg HS PO ; Start 04/30/18 at 21:00 ; Stop 04/30/18 at 21:00; Status DC Acetaminophen (Tylenol) 650 mg PRN Q6HRS PRN PO PAIN / TEMP; Start 04/29/18 at 23:45 Gabapentin (Neurontin) 100 mg QID PO ; Start 04/30/18 at 09:00; Stop 04/30/18 at 09:00; Status DC Lactulose (Lactulose) 20 gm TID PO Last administered on 05/05/18at 19:55; Start 04/30/18 at 09:00 Oxybutynin Chloride (Ditropan) 2.5 mg BID PO Last administered on 05/05/18at 19: 55; Start 04/30/18 at 09:00 Potassium Chloride (Klor-Con) 20 meq DAILY PO Last administered on 05/05/18at 09 :56; Start 04/30/18 at 09:00 Tamsulosin HCl (Flomax) 0.8 mg DAILY PO Last administered on 05/05/18at 09:55; Start 04/30/18 at 09:00 Non-Formulary Medication (Amlodipine Besylate (Norvasc)) 10 mg DAILY PO ; Start 04/30/18 at 09:00; Stop 04/30/18 at 09:00; Status DC Non-Formulary Medication (Baclofen ) 10 mg QID PO ; Start 04/30/18 at 09:00; Stop 04/30/18 at 09:00; Status DC Non-Formulary Medication (Bisacodyl ) 10 mg PRN DAILY PRN RC CONSTIPATION; Start 04/29/18 at 23:45; Stop 04/30/18 at 01:39; Status DC Non-Formulary Medication (Gabapentin ) 800 mg QID PO ; Start 04/30/18 at 09:00; Stop 04/30/18 at 09:00; Status DC Non-Formulary Medication (Levothyroxine Sodium ) 50 mcg DAILYAC PO ; Start 04/30 at 07:30; Stop 04/30/18 at 07:30; Status DC Non-Formulary Medication (Multivitamin/ Iron/Folic Acid (Multivitamin with Iron Tablet)) 1 tab DAILY PO ; Start 04/30/18 at 09:00; Stop 04/30/18 at 09:00; Status DC Multi-Ingredient Ointment (Analgesic [place]) 1 jing PRN QID PRN TP MUSCLE PAIN; Start 04/29/18 at 23:45 Al Hydroxide/Mg Hydroxide (Mylanta Plus Xs) 15 ml PRN AFTMEALHC PRN PO DYSPEPSIA; Start 04/29/18 at 23:45 Magnesium Hydroxide (Milk Of Magnesia) 2,400 mg PRN QHS PRN PO CONSTIPATION; Start 04/29/18 at 23:45 Nicotine (Nicoderm Cq 14mg) 1 patch DAILY TD Last administered on 05/05/18at 09: 52; Start 04/30/18 at 09:00 Gabapentin (Neurontin) 100 mg QID PO Last administered on 05/05/18at 19:54; Start 04/30/18 at 00:30 Non-Formulary Medication (Baclofen ) 10 mg QID PO ; Start 04/30/18 at 00:00; Stop 04/30/18 at 01:39; Status DC Non-Formulary Medication (Buspirone Hcl ) 10 mg TID PO ; Start 04/30/18 at 00:00 ; Stop 04/30/18 at 01:39; Status DC Non-Formulary Medication (Divalproex Sodium (Depakote Er)) 1,000 mg HS PO ; Start 04/30/18 at 00:00; Stop 04/30/18 at 01:39; Status DC Non-Formulary Medication (Gabapentin ) 800 mg QID PO ; Start 04/30/18 at 00:00; Stop 04/30/18 at 01:39; Status DC Non-Formulary Medication (Mirtazapine (Remeron)) 7.5 mg HS PO ; Start 04/30/18 at 00:00; Stop 04/30/18 at 01:39; Status DC Non-Formulary Medication (Olanzapine ) 5 mg HS PO ; Start 04/30/18 at 00:00; Stop 04/30/18 at 01:39; Status DC Non-Formulary Medication (Trazodone Hcl ) 50 mg HS PO ; Start 04/30/18 at 00:00 ; Stop 04/30/18 at 01:39; Status DC Bisacodyl (Dulcolax Supp) 10 mg PRN DAILY PRN [place] CONSTIPATION; Start 04/30/18 at 01:45 Multivitamins/ Calcium (Thera-M Plus) 1 tab DAILY PO Last administered on at 09:55; Start 04/30/18 at 09:00 Amlodipine Besylate (Norvasc) 10 mg DAILY PO Last administered on 9/26/18at 09: 52; Start 04/30/18 at 09:00 Levothyroxine Sodium (Synthroid) 50 mcg DAILY07 PO Last administered on 05:52; Start 04/30/18 at 07:00; Stop 04/30/18 at 15:49; Status DC Gabapentin (Neurontin) 800 mg QID PO Last administered on 05/05/18 19:55; Start 04/30/18 at 09:00 Baclofen (Lioresal) 10 mg QID PO Last administered on 05/05/18 19:53; Start at 09:00 Mirtazapine (Remeron) 7.5 mg QHS PO Last administered on 05/05/18 19:53; Start 04/30/18 at 21:00 Olanzapine (ZyPREXA) 5 mg HS PO Last administered on 04/30/18 20:21; Start at 21:00; Stop 05/01/18 at 18:33; Status DC Trazodone HCl (Desyrel) 50 mg QHS PO Last administered on 05/05/18 19:53; Start 04/30/18 at 21:00 Duloxetine HCl (Cymbalta) 60 mg DAILY PO Last administered on 05/05/18 09:54; Start 04/30/18 at 09:00 Divalproex Sodium (Depakote Er) 1,000 mg QHS PO Last administered on 04/30/18 20:21; Start 04/30/18 at 21:00; Stop 05/01/18 at 18:33; Status DC Buspirone HCl (Buspar) 10 mg TID PO Last administered on 05/05/18 19:53; Start 04/30/18 at 09:00 Levothyroxine Sodium (Synthroid) 50 mcg DAILY06 PO Last administered on 09:56; Start 05/01/18 at 06:00 Divalproex Sodium (Depakote Er) 1,500 mg QHS PO Last administered on 05/05/18 19:53; Start 05/01/18 at 21:00 Risperidone (RisperDAL) 1 mg QHS PO Last administered on 05/03/18 21:23; Start 05/01/18 at 21:00; Stop 05/04/18 at 17:21; Status DC Risperidone (RisperDAL) 1 mg QHS PO Last administered on 05/05/18at 19:54; Start 05/04/18 at 21:00 Risperidone (RisperDAL) 0.25 mg QHS PO Last administered on 05/04/18at 20:07; Start 05/04/18 at 21:00; Stop 05/05/18 at 17:39; Status DC Olanzapine (ZyPREXA ZYDIS) 2.5 mg PRN Q2HR PRN PO PSYCHOSIS; Start 05/04/18 at 23:00 Risperidone (RisperDAL) 0.5 mg QHS PO Last administered on 05/05/18at 19:59; Start 05/05/18 at 21:00 Active Scripts Active Reported Buspirone Hcl 10 Mg Tablet 10 Mg PO TID Baclofen 10 Mg Tablet 10 Mg PO QID Gabapentin 100 Mg Capsule 100 Mg PO QID Gabapentin 800 Mg Tablet 800 Mg PO QID Levothyroxine Sodium 50 Mcg Tablet 50 Mcg PO DAILYAC Klonopin (Clonazepam) 0.5 Mg Tablet 0.5 Mg PO BID92 Lactulose 20 Gm/30 Ml Solution 30 Ml PO TID Norvasc (Amlodipine Besylate) 10 Mg Tablet 10 Mg PO DAILY Oxybutynin Chloride 5 Mg Tablet 2.5 Mg PO BID Depakote Er (Divalproex Sodium) 500 Mg Tab.er.24h 1,000 Mg PO HS Klor-Con M20 (Potassium Chloride) 20 Meq Tab.er.prt 20 Meq PO DAILY Cymbalta (Duloxetine Hcl) 60 Mg Capsule.dr 60 Mg PO DAILY Multivitamin with Iron Tablet (Multivitamin/Iron/Folic Acid) 1 Each Tablet 1 Tab PO DAILY Flomax (Tamsulosin Hcl) 0.4 Mg Cap.er.24h 0.8 Mg PO DAILY Trazodone Hcl 50 Mg Tablet 50 Mg PO HS Olanzapine 5 Mg Tablet 5 Mg PO HS Remeron (Mirtazapine) 15 Mg Tablet 7.5 Mg PO HS Bisacodyl 10 Mg Supp.rect 10 Mg RC PRN DAILY PRN Tylenol (Acetaminophen) 325 Mg Tablet 650 Mg PO PRN Q6HRS PRN I have reviewed the current psychotropics carefully including drug interactions. Risk benefit ratio favors no change other than as noted in my dictated progress note. Diagnosis: Problems: (1) Adult general medical examination (2) Anxiety disorder (3) Impulse control disorder (4) Schizophrenia, paranoid, chronic with acute exacerbation CATHY EMERY MD May 05, 2018 20:49
--- NOTE | 2018-05-05 23:30 | PN ---
DATE: 05/04/2018 This is a late entry for 05/04/2018 covers elements not covered in my initial note. SUBJECTIVE: I met with the patient in the evening. The patient slept 8 hours previous evening. He has been quite obsessed about bowel movements and I addressed this with him. He is compliant with medications. No active delusions, hallucinations noted. Less paranoid. At one point, he was found on the floor near the trashcan, but said he was exercising. I met with him at length in his room. REVIEW OF SYSTEMS: No CV, , eye, ENT or pulmonary system symptoms on review. MENTAL STATUS EXAM: Reasonably oriented. Speech is coherent, abstraction fair, computation impaired, able to do two step serial 7's. No active suicidal or homicidal ideation. Seems less paranoid. LABORATORY DATA: Reviewed. IMPRESSION: Unchanged from initial note. PLAN: Stop Zyprexa 5 mg at bedtime since we have him on Risperdal, which we will increase from 1 mg at bedtime to 1.25 mg at bedtime. Rest unchanged per initial note. MAN Ty EMERY MD DR: SARINA/nilda JOB#: [id number] / [id number]
[2018-05-06 05:25] VITALS: BP 126/80
[2018-05-06] MEDS: LACTULOSE 20 GM/30 ML SOLUTION. PO SCH ×4 (08:34→19:45)
[2018-05-06] MEDS: POTASSIUM CHLORIDE 20 MEQ TABLET.ER. PO SCH (08:35)
[2018-05-06] MEDS: busPIRone 10 MG TABLET. PO SCH ×3 (08:35→19:45)
[2018-05-06] MEDS: BACLOFEN 10 MG TABLET PO SCH ×4 (08:35→19:45)
[2018-05-06] MEDS: DULoxetine HCL 60 MG CAPSULE.DR PO SCH (08:35)
[2018-05-06] MEDS: MULTIVITAMIN with MINERAL TABLET. PO SCH (08:35)
[2018-05-06] MEDS: amLODIPine BESYLATE 10 MG TABLET PO SCH (08:35)
[2018-05-06] MEDS: NICOTINE 14MG PATCH. TD SCH ×2 (08:35→10:32)
[2018-05-06] MEDS: GABAPENTIN 100 MG CAPSULE. PO SCH ×4 (08:36→19:44)
[2018-05-06] MEDS: TAMSULOSIN 0.4 MG CAP.ER.24H. PO SCH (08:36)
[2018-05-06] MEDS: OXYBUTYNIN CHLORIDE 5 MG TABLET PO SCH ×2 (08:36→19:45)
[2018-05-06] MEDS: GABAPENTIN 400 MG CAPSULE. PO SCH ×4 (08:37→19:44)
[2018-05-06] MEDS: clonazePAM 0.5 MG TABLET PO SCH ×2 (08:37→14:47)
[2018-05-06 10:42] LABS: BASO % 0 % (0-3); EOS # 0.2 x10^3/uL (0.0-0.7); EOS % 3 % (0-3); HEMATOCRIT 45.2 % (39.0-53.0); HEMOGLOBIN 15.5 g/dL (13.0-17.5); LYMPH # 1.2 x10^3/uL (1.0-4.8); LYMPH % 18 % (24-48); MEAN CORPUSCULAR HEMOGLOBIN 31 pg (25-35); MEAN CORPUSCULAR HGB CONC 34 g/dL (31-37); MEAN CORPUSCULAR VOLUME 90 fL (79-100); MONO # 0.5 x10^3/uL (0.0-1.1); MONO % 8 % (0-9); NEUT # 4.5 x10^3uL (1.8-7.7); NEUT % 71 % (31-73); PLATELET COUNT 310 x10^3/uL (140-400); RED BLOOD COUNT 5.01 x10^6/uL (4.30-5.70); RED CELL DISTRIBUTION WIDTH 14.4 % (11.5-14.5); WHITE BLOOD COUNT 6.4 x10^3/uL (4.0-11.0)
[2018-05-06 10:55] LABS: ALBUMIN 3.5 g/dL (3.4-5.0); ALK PHOS 96 U/L (46-116); ALT (SGPT) 22 U/L (16-63); ANION GAP 3 (6-14); AST (SGOT) 13 U/L (15-37); BLOOD UREA NITROGEN 10 mg/dL (8-26); BUN/CREATININE RATIO 17 (6-20); CARBON DIOXIDE 34 mmol/L (21-32); CHLORIDE 99 mmol/L (98-107); CREATININE 0.6 mg/dL (0.7-1.3); GFR 138.9; GLUCOSE 74 mg/dL (70-99); POTASSIUM 4.4 mmol/L (3.5-5.1); SODIUM 136 mmol/L (136-145); TOTAL BILIRUBIN 0.3 mg/dL (0.2-1.0); TOTAL PROTEIN 7.1 g/dL (6.4-8.2)
[2018-05-06 10:58] LABS: VAL ACID 61 mcg/mL (50-100)
[2018-05-06 15:56] VITALS: BP 126/85
[2018-05-06] MEDS: risperiDONE 1 MG TABLET. PO SCH (19:44)
[2018-05-06] MEDS: DIVALPROEX ER 500 MG TAB.ER.24H PO SCH (19:44)
[2018-05-06] MEDS: MIRTAZAPINE 7.5 MG TABLET. PO SCH (19:44)
[2018-05-06] MEDS: traZODone 50 MG TABLET. PO SCH (19:45)
[2018-05-06] MEDS: risperiDONE 0.5 MG TABLET. PO SCH (19:45)
--- NOTE | 2018-05-06 20:30 | PDOC ---
Exam Note: Nguyễn Note: Please also refer to the separate dictated note~for this date of service dictated separately.~Patient seen individually. Discussed the patient with Nursing staff reviewed the chart.~Reviewed interim history and current functioning. Reviewed vital signs,~Labs/ Radiology~and current medications noted below. Continue current treatment with the changes noted in the dictated addendum note Assessment: Vital Signs: Vital Signs Date Time Temp Pulse Resp B/P (MAP) Pulse Ox O2 Delivery O2 Flow Rate FiO2 05/06/18 15:56 98.0 86 16 126/85 (99) 99 Room Air 05/03/18 06:06 96.0 I&O Intake and Output 05/06/18 07:00 Intake Total 1260 ml Balance 1260 ml Intake Oral 1260 ml # Bowel Movements 1 Labs: Laboratory Tests Test 05/06/18 10:30 White Blood Count 6.4 x10^3/uL (4.0-11.0) Red Blood Count 5.01 x10^6/uL (4.30-5.70) Hemoglobin 15.5 g/dL (13.0-17.5) Hematocrit 45.2 % (39.0-53.0) Mean Corpuscular Volume 90 fL (79-100) Mean Corpuscular Hemoglobin 31 pg (25-35) Mean Corpuscular Hemoglobin Concent 34 g/dL (31-37) Red Cell Distribution Width 14.4 % (11.5-14.5) Platelet Count 310 x10^3/uL (140-400) Neutrophils (%) (Auto) 71 % (31-73) Lymphocytes (%) (Auto) 18 % (24-48) L Monocytes (%) (Auto) 8 % (0-9) Eosinophils (%) (Auto) 3 % (0-3) Basophils (%) (Auto) 0 % (0-3) Neutrophils # (Auto) 4.5 x10^3uL (1.8-7.7) Lymphocytes # (Auto) 1.2 x10^3/uL (1.0-4.8) Monocytes # (Auto) 0.5 x10^3/uL (0.0-1.1) Eosinophils # (Auto) 0.2 x10^3/uL (0.0-0.7) Basophils # (Auto) 0.0 x10^3/uL (0.0-0.2) Sodium Level 136 mmol/L (136-145) Potassium Level 4.4 mmol/L (3.5-5.1) Chloride Level 99 mmol/L (98-107) Carbon Dioxide Level 34 mmol/L (21-32) H Anion Gap 3 (6-14) L Blood Urea Nitrogen 10 mg/dL (8-26) Creatinine 0.6 mg/dL (0.7-1.3) L Estimated GFR (Cockcroft-Gault) 138.9 BUN/Creatinine Ratio 17 (6-20) Glucose Level 74 mg/dL (70-99) Calcium Level 9.0 mg/dL (8.5-10.1) Total Bilirubin 0.3 mg/dL (0.2-1.0) Aspartate Amino Transferase (AST) 13 U/L (15-37) L Alanine Aminotransferase (ALT) 22 U/L (16-63) Alkaline Phosphatase 96 U/L (46-116) Total Protein 7.1 g/dL (6.4-8.2) Albumin 3.5 g/dL (3.4-5.0) Albumin/Globulin Ratio 1.0 (1.0-1.7) Valproic Acid Level 61 mcg/mL (50-100) Valproic Acid Last Dose Date 05/05/18 Valproic Acid Last Dose Time 2100 Current Medications: Meds: Current Medications Clonazepam (KlonoPIN) 0.5 mg BID92 PO Last administered on 05/06/18at 14:47; Start 04/30/18 at 09:00 Non-Formulary Medication (Buspirone Hcl ) 10 mg TID PO ; Start 04/30/18 at 09:00 ; Stop 04/30/18 at 09:00; Status DC Non-Formulary Medication (Divalproex Sodium (Depakote Er)) 1,000 mg HS PO ; Start 04/30/18 at 21:00; Stop 04/30/18 at 21:00; Status DC Non-Formulary Medication (Duloxetine Hcl (Cymbalta)) 60 mg DAILY PO ; Start at 09:00; Stop 04/30/18 at 09:00; Status DC Non-Formulary Medication (Mirtazapine (Remeron)) 7.5 mg HS PO ; Start 04/30/18 at 21:00; Stop 04/30/18 at 21:00; Status DC Non-Formulary Medication (Olanzapine ) 5 mg HS PO ; Start 04/30/18 at 21:00; Stop 04/30/18 at 21:00; Status DC Non-Formulary Medication (Trazodone Hcl ) 50 mg HS PO ; Start 04/30/18 at 21:00 ; Stop 04/30/18 at 21:00; Status DC Acetaminophen (Tylenol) 650 mg PRN Q6HRS PRN PO PAIN / TEMP; Start 04/29/18 at 23:45 Gabapentin (Neurontin) 100 mg QID PO ; Start 04/30/18 at 09:00; Stop 04/30/18 at 09:00; Status DC Lactulose (Lactulose) 20 gm TID PO Last administered on 05/05/18at 19:55; Start 04/30/18 at 09:00 Oxybutynin Chloride (Ditropan) 2.5 mg BID PO Last administered on 05/06/18at 19: 45; Start 04/30/18 at 09:00 Potassium Chloride (Klor-Con) 20 meq DAILY PO Last administered on 05/06/18at 08 :35; Start 04/30/18 at 09:00 Tamsulosin HCl (Flomax) 0.8 mg DAILY PO Last administered on 05/06/18at 08:36; Start 04/30/18 at 09:00 Non-Formulary Medication (Amlodipine Besylate (Norvasc)) 10 mg DAILY PO ; Start 04/30/18 at 09:00; Stop 04/30/18 at 09:00; Status DC Non-Formulary Medication (Baclofen ) 10 mg QID PO ; Start 04/30/18 at 09:00; Stop 04/30/18 at 09:00; Status DC Non-Formulary Medication (Bisacodyl ) 10 mg PRN DAILY PRN RC CONSTIPATION; Start 04/29/18 at 23:45; Stop 04/30/18 at 01:39; Status DC Non-Formulary Medication (Gabapentin ) 800 mg QID PO ; Start 04/30/18 at 09:00; Stop 04/30/18 at 09:00; Status DC Non-Formulary Medication (Levothyroxine Sodium ) 50 mcg DAILYAC PO ; Start 04/30 at 07:30; Stop 04/30/18 at 07:30; Status DC Non-Formulary Medication (Multivitamin/ Iron/Folic Acid (Multivitamin with Iron Tablet)) 1 tab DAILY PO ; Start 04/30/18 at 09:00; Stop 04/30/18 at 09:00; Status DC Multi-Ingredient Ointment (Analgesic [place]) 1 jing PRN QID PRN TP MUSCLE PAIN; Start 04/29/18 at 23:45 Al Hydroxide/Mg Hydroxide (Mylanta Plus Xs) 15 ml PRN AFTMEALHC PRN PO DYSPEPSIA; Start 04/29/18 at 23:45 Magnesium Hydroxide (Milk Of Magnesia) 2,400 mg PRN QHS PRN PO CONSTIPATION; Start 04/29/18 at 23:45 Nicotine (Nicoderm Cq 14mg) 1 patch DAILY TD Last administered on 05/05/18at 09: 52; Start 04/30/18 at 09:00 Gabapentin (Neurontin) 100 mg QID PO Last administered on 05/06/18at 19:44; Start 04/30/18 at 00:30 Non-Formulary Medication (Baclofen ) 10 mg QID PO ; Start 04/30/18 at 00:00; Stop 04/30/18 at 01:39; Status DC Non-Formulary Medication (Buspirone Hcl ) 10 mg TID PO ; Start 04/30/18 at 00:00 ; Stop 04/30/18 at 01:39; Status DC Non-Formulary Medication (Divalproex Sodium (Depakote Er)) 1,000 mg HS PO ; Start 04/30/18 at 00:00; Stop 04/30/18 at 01:39; Status DC Non-Formulary Medication (Gabapentin ) 800 mg QID PO ; Start 04/30/18 at 00:00; Stop 04/30/18 at 01:39; Status DC Non-Formulary Medication (Mirtazapine (Remeron)) 7.5 mg HS PO ; Start 04/30/18 at 00:00; Stop 04/30/18 at 01:39; Status DC Non-Formulary Medication (Olanzapine ) 5 mg HS PO ; Start 04/30/18 at 00:00; Stop 04/30/18 at 01:39; Status DC Non-Formulary Medication (Trazodone Hcl ) 50 mg HS PO ; Start 04/30/18 at 00:00 ; Stop 04/30/18 at 01:39; Status DC Bisacodyl (Dulcolax Supp) 10 mg PRN DAILY PRN [place] CONSTIPATION; Start 04/30/18 at 01:45 Multivitamins/ Calcium (Thera-M Plus) 1 tab DAILY PO Last administered on 08:35; Start 04/30/18 at 09:00 Amlodipine Besylate (Norvasc) 10 mg DAILY PO Last administered on 05/06/18 08: 35; Start 04/30/18 at 09:00 Levothyroxine Sodium (Synthroid) 50 mcg DAILY07 PO Last administered on at 05:52; Start 04/30/18 at 07:00; Stop 04/30/18 at 15:49; Status DC Gabapentin (Neurontin) 800 mg QID PO Last administered on 05/06/18 19:44; Start 04/30/18 at 09:00 Baclofen (Lioresal) 10 mg QID PO Last administered on 05/06/18 19:45; Start at 09:00 Mirtazapine (Remeron) 7.5 mg QHS PO Last administered on 05/06/18 19:44; Start 04/30/18 at 21:00 Olanzapine (ZyPREXA) 5 mg HS PO Last administered on 04/30/18 20:21; Start at 21:00; Stop 05/01/18 at 18:33; Status DC Trazodone HCl (Desyrel) 50 mg QHS PO Last administered on 05/06/18at 19:45; Start 04/30/18 at 21:00 Duloxetine HCl (Cymbalta) 60 mg DAILY PO Last administered on 05/06/18 08:35; Start 04/30/18 at 09:00 Divalproex Sodium (Depakote Er) 1,000 mg QHS PO Last administered on 04/30/18at 20:21; Start 04/30/18 at 21:00; Stop 05/01/18 at 18:33; Status DC Buspirone HCl (Buspar) 10 mg TID PO Last administered on 05/06/18at 19:45; Start 04/30/18 at 09:00 Levothyroxine Sodium (Synthroid) 50 mcg DAILY06 PO Last administered on at 09:56; Start 05/01/18 at 06:00 Divalproex Sodium (Depakote Er) 1,500 mg QHS PO Last administered on 05/06/18at 19:44; Start 05/01/18 at 21:00 Risperidone (RisperDAL) 1 mg QHS PO Last administered on 05/03/18at 21:23; Start 05/01/18 at 21:00; Stop 05/04/18 at 17:21; Status DC Risperidone (RisperDAL) 1 mg QHS PO Last administered on 05/06/18at 19:44; Start 05/04/18 at 21:00 Risperidone (RisperDAL) 0.25 mg QHS PO Last administered on 05/04/18at 20:07; Start 05/04/18 at 21:00; Stop 05/05/18 at 17:39; Status DC Olanzapine (ZyPREXA ZYDIS) 2.5 mg PRN Q2HR PRN PO PSYCHOSIS; Start 05/04/18 at 23:00 Risperidone (RisperDAL) 0.5 mg QHS PO Last administered on 05/06/18at 19:45; Start 05/05/18 at 21:00 Active Scripts Active Reported Buspirone Hcl 10 Mg Tablet 10 Mg PO TID Baclofen 10 Mg Tablet 10 Mg PO QID Gabapentin 100 Mg Capsule 100 Mg PO QID Gabapentin 800 Mg Tablet 800 Mg PO QID Levothyroxine Sodium 50 Mcg Tablet 50 Mcg PO DAILYAC Klonopin (Clonazepam) 0.5 Mg Tablet 0.5 Mg PO BID92 Lactulose 20 Gm/30 Ml Solution 30 Ml PO TID Norvasc (Amlodipine Besylate) 10 Mg Tablet 10 Mg PO DAILY Oxybutynin Chloride 5 Mg Tablet 2.5 Mg PO BID Depakote Er (Divalproex Sodium) 500 Mg Tab.er.24h 1,000 Mg PO HS Klor-Con M20 (Potassium Chloride) 20 Meq Tab.er.prt 20 Meq PO DAILY Cymbalta (Duloxetine Hcl) 60 Mg Capsule.dr 60 Mg PO DAILY Multivitamin with Iron Tablet (Multivitamin/Iron/Folic Acid) 1 Each Tablet 1 Tab PO DAILY Flomax (Tamsulosin Hcl) 0.4 Mg Cap.er.24h 0.8 Mg PO DAILY Trazodone Hcl 50 Mg Tablet 50 Mg PO HS Olanzapine 5 Mg Tablet 5 Mg PO HS Remeron (Mirtazapine) 15 Mg Tablet 7.5 Mg PO HS Bisacodyl 10 Mg Supp.rect 10 Mg RC PRN DAILY PRN Tylenol (Acetaminophen) 325 Mg Tablet 650 Mg PO PRN Q6HRS PRN I have reviewed the current psychotropics carefully including drug interactions. Risk benefit ratio favors no change other than as noted in my dictated progress note. Diagnosis: Problems: (1) Adult general medical examination (2) Anxiety disorder (3) Impulse control disorder (4) Schizophrenia, paranoid, chronic with acute exacerbation CATHY EMERY MD May 06, 2018 20:30
[2018-05-06] MEDS ORDERED: traZODone 50 MG TABLET. PO PRN (22:30)
[2018-05-07] MEDS: LEVOTHYROXINE 50 MCG TABLET PO SCH (05:01)
[2018-05-07 05:53] VITALS: BP 129/77
[2018-05-07] MEDS: LACTULOSE 20 GM/30 ML SOLUTION. PO SCH ×3 (09:00→19:28)
[2018-05-07] MEDS: GABAPENTIN 100 MG CAPSULE. PO SCH ×4 (09:09→19:26)
[2018-05-07] MEDS: busPIRone 10 MG TABLET. PO SCH ×3 (09:09→19:26)
[2018-05-07] MEDS: BACLOFEN 10 MG TABLET PO SCH ×4 (09:09→19:28)
[2018-05-07] MEDS: POTASSIUM CHLORIDE 20 MEQ TABLET.ER. PO SCH (09:10)
[2018-05-07] MEDS: MULTIVITAMIN with MINERAL TABLET. PO SCH (09:10)
[2018-05-07] MEDS: DULoxetine HCL 60 MG CAPSULE.DR PO SCH (09:10)
[2018-05-07] MEDS: TAMSULOSIN 0.4 MG CAP.ER.24H. PO SCH (09:10)
[2018-05-07] MEDS: amLODIPine BESYLATE 10 MG TABLET PO SCH (09:10)
[2018-05-07] MEDS: NICOTINE 14MG PATCH. TD SCH (09:11)
[2018-05-07] MEDS: OXYBUTYNIN CHLORIDE 5 MG TABLET PO SCH ×2 (09:11→19:28)
[2018-05-07] MEDS: GABAPENTIN 400 MG CAPSULE. PO SCH ×4 (09:13→19:27)
[2018-05-07] MEDS: clonazePAM 0.5 MG TABLET PO SCH ×2 (09:13→13:03)
[2018-05-07 16:05] VITALS: BP 113/75
[2018-05-07] MEDS: traZODone 50 MG TABLET. PO SCH (19:27)
[2018-05-07] MEDS: DIVALPROEX ER 500 MG TAB.ER.24H PO SCH (19:27)
[2018-05-07] MEDS: risperiDONE 0.5 MG TABLET. PO SCH (19:27)
[2018-05-07] MEDS: risperiDONE 1 MG TABLET. PO SCH (19:27)
[2018-05-07] MEDS: MIRTAZAPINE 7.5 MG TABLET. PO SCH (19:27)
--- NOTE | 2018-05-07 20:48 | PDOC ---
Exam Note: Nguyễn Note: Please also refer to the separate dictated note~for this date of service dictated separately.~Patient seen individually. Discussed the patient with Nursing staff reviewed the chart.~Reviewed interim history and current functioning. Reviewed vital signs,~Labs/ Radiology~and current medications noted below. Continue current treatment with the changes noted in the dictated addendum note Assessment: Vital Signs: Vital Signs Date Time Temp Pulse Resp B/P (MAP) Pulse Ox O2 Delivery O2 Flow Rate FiO2 05/07/18 16:05 98.3 79 22 113/75 (88) 94 Room Air 05/03/18 06:06 96.0 I&O Intake and Output 05/07/18 07:00 Intake Total 1800 ml Balance 1800 ml Intake Oral 1800 ml # Bowel Movements 2 Current Medications: Meds: Current Medications Clonazepam (KlonoPIN) 0.5 mg BID92 PO Last administered on 05/07/18at 13:03; Start 04/30/18 at 09:00 Non-Formulary Medication (Buspirone Hcl ) 10 mg TID PO ; Start 04/30/18 at 09:00 ; Stop 04/30/18 at 09:00; Status DC Non-Formulary Medication (Divalproex Sodium (Depakote Er)) 1,000 mg HS PO ; Start 04/30/18 at 21:00; Stop 04/30/18 at 21:00; Status DC Non-Formulary Medication (Duloxetine Hcl (Cymbalta)) 60 mg DAILY PO ; Start at 09:00; Stop 04/30/18 at 09:00; Status DC Non-Formulary Medication (Mirtazapine (Remeron)) 7.5 mg HS PO ; Start 04/30/18 at 21:00; Stop 04/30/18 at 21:00; Status DC Non-Formulary Medication (Olanzapine ) 5 mg HS PO ; Start 04/30/18 at 21:00; Stop 04/30/18 at 21:00; Status DC Non-Formulary Medication (Trazodone Hcl ) 50 mg HS PO ; Start 04/30/18 at 21:00 ; Stop 04/30/18 at 21:00; Status DC Acetaminophen (Tylenol) 650 mg PRN Q6HRS PRN PO PAIN / TEMP; Start 04/29/18 at 23:45 Gabapentin (Neurontin) 100 mg QID PO ; Start 04/30/18 at 09:00; Stop 04/30/18 at 09:00; Status DC Lactulose (Lactulose) 20 gm TID PO Last administered on 05/05/18at 19:55; Start 04/30/18 at 09:00 Oxybutynin Chloride (Ditropan) 2.5 mg BID PO Last administered on 05/07/18at 19: 28; Start 04/30/18 at 09:00 Potassium Chloride (Klor-Con) 20 meq DAILY PO Last administered on 05/07/18at 09 :10; Start 04/30/18 at 09:00 Tamsulosin HCl (Flomax) 0.8 mg DAILY PO Last administered on 05/07/18at 09:10; Start 04/30/18 at 09:00 Non-Formulary Medication (Amlodipine Besylate (Norvasc)) 10 mg DAILY PO ; Start 04/30/18 at 09:00; Stop 04/30/18 at 09:00; Status DC Non-Formulary Medication (Baclofen ) 10 mg QID PO ; Start 04/30/18 at 09:00; Stop 04/30/18 at 09:00; Status DC Non-Formulary Medication (Bisacodyl ) 10 mg PRN DAILY PRN RC CONSTIPATION; Start 04/29/18 at 23:45; Stop 04/30/18 at 01:39; Status DC Non-Formulary Medication (Gabapentin ) 800 mg QID PO ; Start 04/30/18 at 09:00; Stop 04/30/18 at 09:00; Status DC Non-Formulary Medication (Levothyroxine Sodium ) 50 mcg DAILYAC PO ; Start 04/30 at 07:30; Stop 04/30/18 at 07:30; Status DC Non-Formulary Medication (Multivitamin/ Iron/Folic Acid (Multivitamin with Iron Tablet)) 1 tab DAILY PO ; Start 04/30/18 at 09:00; Stop 04/30/18 at 09:00; Status DC Multi-Ingredient Ointment (Analgesic [place]) 1 jing PRN QID PRN TP MUSCLE PAIN; Start 04/29/18 at 23:45 Al Hydroxide/Mg Hydroxide (Mylanta Plus Xs) 15 ml PRN AFTMEALHC PRN PO DYSPEPSIA; Start 04/29/18 at 23:45 Magnesium Hydroxide (Milk Of Magnesia) 2,400 mg PRN QHS PRN PO CONSTIPATION; Start 04/29/18 at 23:45 Nicotine (Nicoderm Cq 14mg) 1 patch DAILY TD Last administered on 05/07/18at 09: 11; Start 04/30/18 at 09:00 Gabapentin (Neurontin) 100 mg QID PO Last administered on 05/07/18at 19:26; Start 04/30/18 at 00:30 Non-Formulary Medication (Baclofen ) 10 mg QID PO ; Start 04/30/18 at 00:00; Stop 04/30/18 at 01:39; Status DC Non-Formulary Medication (Buspirone Hcl ) 10 mg TID PO ; Start 04/30/18 at 00:00 ; Stop 04/30/18 at 01:39; Status DC Non-Formulary Medication (Divalproex Sodium (Depakote Er)) 1,000 mg HS PO ; Start 04/30/18 at 00:00; Stop 04/30/18 at 01:39; Status DC Non-Formulary Medication (Gabapentin ) 800 mg QID PO ; Start 04/30/18 at 00:00; Stop 04/30/18 at 01:39; Status DC Non-Formulary Medication (Mirtazapine (Remeron)) 7.5 mg HS PO ; Start 04/30/18 at 00:00; Stop 04/30/18 at 01:39; Status DC Non-Formulary Medication (Olanzapine ) 5 mg HS PO ; Start 04/30/18 at 00:00; Stop 04/30/18 at 01:39; Status DC Non-Formulary Medication (Trazodone Hcl ) 50 mg HS PO ; Start 04/30/18 at 00:00 ; Stop 04/30/18 at 01:39; Status DC Bisacodyl (Dulcolax Supp) 10 mg PRN DAILY PRN [place] CONSTIPATION; Start 04/30/18 at 01:45 Multivitamins/ Calcium (Thera-M Plus) 1 tab DAILY PO Last administered on at 09:10; Start 04/30/18 at 09:00 Amlodipine Besylate (Norvasc) 10 mg DAILY PO Last administered on 05/07/18at 09: 10; Start 04/30/18 at 09:00 Levothyroxine Sodium (Synthroid) 50 mcg DAILY07 PO Last administered on 05:52; Start 04/30/18 at 07:00; Stop 04/30/18 at 15:49; Status DC Gabapentin (Neurontin) 800 mg QID PO Last administered on 05/07/18 19:27; Start 04/30/18 at 09:00 Baclofen (Lioresal) 10 mg QID PO Last administered on 05/07/18 19:28; Start at 09:00 Mirtazapine (Remeron) 7.5 mg QHS PO Last administered on 05/07/18 19:27; Start 04/30/18 at 21:00 Olanzapine (ZyPREXA) 5 mg HS PO Last administered on 04/30/18 20:21; Start at 21:00; Stop 05/01/18 at 18:33; Status DC Trazodone HCl (Desyrel) 50 mg QHS PO Last administered on 05/07/18 19:27; Start 04/30/18 at 21:00 Duloxetine HCl (Cymbalta) 60 mg DAILY PO Last administered on 05/07/18 09:10; Start 04/30/18 at 09:00 Divalproex Sodium (Depakote Er) 1,000 mg QHS PO Last administered on 04/30/18 20:21; Start 04/30/18 at 21:00; Stop 05/01/18 at 18:33; Status DC Buspirone HCl (Buspar) 10 mg TID PO Last administered on 05/07/18 19:26; Start 04/30/18 at 09:00 Levothyroxine Sodium (Synthroid) 50 mcg DAILY06 PO Last administered on 05:01; Start 05/01/18 at 06:00 Divalproex Sodium (Depakote Er) 1,500 mg QHS PO Last administered on 05/07/18 19:27; Start 05/01/18 at 21:00 Risperidone (RisperDAL) 1 mg QHS PO Last administered on 05/03/18 21:23; Start 05/01/18 at 21:00; Stop 05/04/18 at 17:21; Status DC Risperidone (RisperDAL) 1 mg QHS PO Last administered on 05/07/18at 19:27; Start 05/04/18 at 21:00 Risperidone (RisperDAL) 0.25 mg QHS PO Last administered on 05/04/18at 20:07; Start 05/04/18 at 21:00; Stop 05/05/18 at 17:39; Status DC Olanzapine (ZyPREXA ZYDIS) 2.5 mg PRN Q2HR PRN PO PSYCHOSIS; Start 05/04/18 at 23:00 Risperidone (RisperDAL) 0.5 mg QHS PO Last administered on 05/07/18at 19:27; Start 05/05/18 at 21:00 Trazodone HCl (Desyrel) 50 mg PRN QHS PRN PO Insomnia; Start 05/06/18 at 22:30 Active Scripts Active Reported Buspirone Hcl 10 Mg Tablet 10 Mg PO TID Baclofen 10 Mg Tablet 10 Mg PO QID Gabapentin 100 Mg Capsule 100 Mg PO QID Gabapentin 800 Mg Tablet 800 Mg PO QID Levothyroxine Sodium 50 Mcg Tablet 50 Mcg PO DAILYAC Klonopin (Clonazepam) 0.5 Mg Tablet 0.5 Mg PO BID92 Lactulose 20 Gm/30 Ml Solution 30 Ml PO TID Norvasc (Amlodipine Besylate) 10 Mg Tablet 10 Mg PO DAILY Oxybutynin Chloride 5 Mg Tablet 2.5 Mg PO BID Depakote Er (Divalproex Sodium) 500 Mg Tab.er.24h 1,000 Mg PO HS Klor-Con M20 (Potassium Chloride) 20 Meq Tab.er.prt 20 Meq PO DAILY Cymbalta (Duloxetine Hcl) 60 Mg Capsule.dr 60 Mg PO DAILY Multivitamin with Iron Tablet (Multivitamin/Iron/Folic Acid) 1 Each Tablet 1 Tab PO DAILY Flomax (Tamsulosin Hcl) 0.4 Mg Cap.er.24h 0.8 Mg PO DAILY Trazodone Hcl 50 Mg Tablet 50 Mg PO HS Olanzapine 5 Mg Tablet 5 Mg PO HS Remeron (Mirtazapine) 15 Mg Tablet 7.5 Mg PO HS Bisacodyl 10 Mg Supp.rect 10 Mg RC PRN DAILY PRN Tylenol (Acetaminophen) 325 Mg Tablet 650 Mg PO PRN Q6HRS PRN I have reviewed the current psychotropics carefully including drug interactions. Risk benefit ratio favors no change other than as noted in my dictated progress note. Diagnosis: Problems: (1) Adult general medical examination (2) Anxiety disorder (3) Impulse control disorder (4) Schizophrenia, paranoid, chronic with acute exacerbation CATHY EMERY MD May 07, 2018 20:48
--- NOTE | 2018-05-07 22:13 | PN ---
DATE: 05/05/2018 This is a late entry for 05/05/2018 covers elements not covered in my initial note. SUBJECTIVE: I met with the patient in the evening. The patient slept 7 hours previous night. In the morning, he was having some tachycardia, heart rate 105, but less delusional. Previous evening, he was paranoid, lying on the floor, afraid that someone would hurt him that there were bombs being dropped and people are going to be shooting. He received Zyprexa p.r.n. at 10:00 p.m. Nursing staff had called me. REVIEW OF SYSTEMS: Positive for impaired ambulation with walker. No CV, , pulmonary, eye, ENT system symptoms on review. MENTAL STATUS EXAM: Reasonably oriented. Speech has some latency, coherent, met with him in his room. Abstraction fair. Computation able to do one step in serial 7's. No suicidal or homicidal ideation. Mood and affect is improved, less anxious. LABORATORY DATA: Reviewed. Valproic acid level is 30. IMPRESSION: Schizoaffective disorder, bipolar type, mixed with psychotic features, in partial remission. Rest unchanged. PLAN: Increase Risperdal from 1.25 mg at bedtime to 1.5 mg at bedtime. Rest unchanged including Depakote ER 1500 mg a day. Valproic acid level slightly subtherapeutic. We may need to adjust this to reach therapeutic level. MAN Ty EMERY MD DR: SARINA/nilda JOB#: [id number] / [id number]
--- NOTE | 2018-05-08 00:38 | PN ---
DATE: 05/06/2018 This is a late entry for 05/06/2018 covers elements not covered in my initial note. SUBJECTIVE: I met with the patient in the evening, staffed at a treatment team meeting with the entire team in the morning and the patient's sisters, Bhanu and Lucy, attended the treatment team meeting. Lengthy discussion about the patient's history, progress, current medications. The patient slept 5-3/4 hours previous evening, has not been delusional, doing better, still anxious, depressed at times. REVIEW OF SYSTEMS: Ambulation impaired. No CV, , pulmonary, eye system symptoms on review. MENTAL STATUS EXAM: Reasonably oriented. Speech moderate latency, often responses monosyllabic. Abstraction fair, computation impaired, language function intact, attention span short. Mood and affect somewhat withdrawn. LABORATORY DATA: Reviewed. IMPRESSION: Schizoaffective disorder, bipolar type, mixed with psychotic features. Rest unchanged. PLAN: Check CBC, CMP, valproic acid level on 05/06/2018. Add another dosage of trazodone 50 mg at bedtime p.r.n. for insomnia. Continue rest unchanged including Risperdal 1.5 mg at bedtime. MAN Ty EMERY MD DR: SARINA/nilda JOB#: [id number] / [id number]
[2018-05-08] MEDS: LEVOTHYROXINE 50 MCG TABLET PO SCH (05:42)
[2018-05-08 05:55] VITALS: BP 120/85
[2018-05-08] MEDS: busPIRone 10 MG TABLET. PO SCH ×3 (07:59→19:14)
[2018-05-08] MEDS: OXYBUTYNIN CHLORIDE 5 MG TABLET PO SCH ×2 (08:00→19:15)
[2018-05-08] MEDS: DULoxetine HCL 60 MG CAPSULE.DR PO SCH (08:00)
[2018-05-08] MEDS: TAMSULOSIN 0.4 MG CAP.ER.24H. PO SCH (08:01)
[2018-05-08] MEDS: GABAPENTIN 400 MG CAPSULE. PO SCH ×4 (08:01→19:14)
[2018-05-08] MEDS: POTASSIUM CHLORIDE 20 MEQ TABLET.ER. PO SCH (08:01)
[2018-05-08] MEDS: clonazePAM 0.5 MG TABLET PO SCH ×2 (08:01→13:31)
[2018-05-08] MEDS: LACTULOSE 20 GM/30 ML SOLUTION. PO SCH ×3 (08:01→19:16)
[2018-05-08] MEDS: BACLOFEN 10 MG TABLET PO SCH ×4 (08:01→19:15)
[2018-05-08] MEDS: MULTIVITAMIN with MINERAL TABLET. PO SCH (08:03)
[2018-05-08] MEDS: amLODIPine BESYLATE 10 MG TABLET PO SCH (08:03)
[2018-05-08] MEDS: GABAPENTIN 100 MG CAPSULE. PO SCH ×4 (08:04→19:15)
[2018-05-08] MEDS: NICOTINE 14MG PATCH. TD SCH (09:00)
[2018-05-08 15:55] VITALS: BP 103/70
[2018-05-08] MEDS: traZODone 50 MG TABLET. PO SCH (19:14)
[2018-05-08] MEDS: risperiDONE 1 MG TABLET. PO SCH (19:15)
[2018-05-08] MEDS: risperiDONE 0.5 MG TABLET. PO SCH (19:15)
[2018-05-08] MEDS: MIRTAZAPINE 7.5 MG TABLET. PO SCH (19:15)
[2018-05-08] MEDS: DIVALPROEX ER 500 MG TAB.ER.24H PO SCH (19:15)
--- NOTE | 2018-05-08 23:05 | PDOC ---
Exam Note: Nguyễn Note: Please also refer to the separate dictated note~for this date of service dictated separately.~Patient seen individually. Discussed the patient with Nursing staff reviewed the chart.~Reviewed interim history and current functioning. Reviewed vital signs,~Labs/ Radiology~and current medications noted below. Continue current treatment with the changes noted in the dictated addendum note Assessment: Vital Signs: Vital Signs Date Time Temp Pulse Resp B/P (MAP) Pulse Ox O2 Delivery O2 Flow Rate FiO2 05/08/18 15:55 98.1 79 18 103/70 (81) 96 05/08/18 05:55 Room Air 05/03/18 06:06 96.0 I&O Intake and Output 05/08/18 07:00 Intake Total 1440 ml Balance 1440 ml Intake Oral 1440 ml Current Medications: Meds: Current Medications Clonazepam (KlonoPIN) 0.5 mg BID92 PO Last administered on 05/08/18at 13:31; Start 04/30/18 at 09:00 Non-Formulary Medication (Buspirone Hcl ) 10 mg TID PO ; Start 04/30/18 at 09:00 ; Stop 04/30/18 at 09:00; Status DC Non-Formulary Medication (Divalproex Sodium (Depakote Er)) 1,000 mg HS PO ; Start 04/30/18 at 21:00; Stop 04/30/18 at 21:00; Status DC Non-Formulary Medication (Duloxetine Hcl (Cymbalta)) 60 mg DAILY PO ; Start at 09:00; Stop 04/30/18 at 09:00; Status DC Non-Formulary Medication (Mirtazapine (Remeron)) 7.5 mg HS PO ; Start 04/30/18 at 21:00; Stop 04/30/18 at 21:00; Status DC Non-Formulary Medication (Olanzapine ) 5 mg HS PO ; Start 04/30/18 at 21:00; Stop 04/30/18 at 21:00; Status DC Non-Formulary Medication (Trazodone Hcl ) 50 mg HS PO ; Start 04/30/18 at 21:00 ; Stop 04/30/18 at 21:00; Status DC Acetaminophen (Tylenol) 650 mg PRN Q6HRS PRN PO PAIN / TEMP; Start 04/29/18 at 23:45 Gabapentin (Neurontin) 100 mg QID PO ; Start 04/30/18 at 09:00; Stop 04/30/18 at 09:00; Status DC Lactulose (Lactulose) 20 gm TID PO Last administered on 05/08/18at 19:16; Start 04/30/18 at 09:00 Oxybutynin Chloride (Ditropan) 2.5 mg BID PO Last administered on 05/08/18at 19: 15; Start 04/30/18 at 09:00 Potassium Chloride (Klor-Con) 20 meq DAILY PO Last administered on 05/08/18at 08 :01; Start 04/30/18 at 09:00 Tamsulosin HCl (Flomax) 0.8 mg DAILY PO Last administered on 05/08/18at 08:01; Start 04/30/18 at 09:00 Non-Formulary Medication (Amlodipine Besylate (Norvasc)) 10 mg DAILY PO ; Start 04/30/18 at 09:00; Stop 04/30/18 at 09:00; Status DC Non-Formulary Medication (Baclofen ) 10 mg QID PO ; Start 04/30/18 at 09:00; Stop 04/30/18 at 09:00; Status DC Non-Formulary Medication (Bisacodyl ) 10 mg PRN DAILY PRN RC CONSTIPATION; Start 04/29/18 at 23:45; Stop 04/30/18 at 01:39; Status DC Non-Formulary Medication (Gabapentin ) 800 mg QID PO ; Start 04/30/18 at 09:00; Stop 04/30/18 at 09:00; Status DC Non-Formulary Medication (Levothyroxine Sodium ) 50 mcg DAILYAC PO ; Start 04/30 at 07:30; Stop 04/30/18 at 07:30; Status DC Non-Formulary Medication (Multivitamin/ Iron/Folic Acid (Multivitamin with Iron Tablet)) 1 tab DAILY PO ; Start 04/30/18 at 09:00; Stop 04/30/18 at 09:00; Status DC Multi-Ingredient Ointment (Analgesic [place]) 1 jing PRN QID PRN TP MUSCLE PAIN; Start 04/29/18 at 23:45 Al Hydroxide/Mg Hydroxide (Mylanta Plus Xs) 15 ml PRN AFTMEALHC PRN PO DYSPEPSIA; Start 04/29/18 at 23:45 Magnesium Hydroxide (Milk Of Magnesia) 2,400 mg PRN QHS PRN PO CONSTIPATION; Start 04/29/18 at 23:45 Nicotine (Nicoderm Cq 14mg) 1 patch DAILY TD Last administered on 05/07/18at 09: 11; Start 04/30/18 at 09:00 Gabapentin (Neurontin) 100 mg QID PO Last administered on 05/08/18at 19:15; Start 04/30/18 at 00:30 Non-Formulary Medication (Baclofen ) 10 mg QID PO ; Start 04/30/18 at 00:00; Stop 04/30/18 at 01:39; Status DC Non-Formulary Medication (Buspirone Hcl ) 10 mg TID PO ; Start 04/30/18 at 00:00 ; Stop 04/30/18 at 01:39; Status DC Non-Formulary Medication (Divalproex Sodium (Depakote Er)) 1,000 mg HS PO ; Start 04/30/18 at 00:00; Stop 04/30/18 at 01:39; Status DC Non-Formulary Medication (Gabapentin ) 800 mg QID PO ; Start 04/30/18 at 00:00; Stop 04/30/18 at 01:39; Status DC Non-Formulary Medication (Mirtazapine (Remeron)) 7.5 mg HS PO ; Start 04/30/18 at 00:00; Stop 04/30/18 at 01:39; Status DC Non-Formulary Medication (Olanzapine ) 5 mg HS PO ; Start 04/30/18 at 00:00; Stop 04/30/18 at 01:39; Status DC Non-Formulary Medication (Trazodone Hcl ) 50 mg HS PO ; Start 04/30/18 at 00:00 ; Stop 04/30/18 at 01:39; Status DC Bisacodyl (Dulcolax Supp) 10 mg PRN DAILY PRN [place] CONSTIPATION; Start 04/30/18 at 01:45 Multivitamins/ Calcium (Thera-M Plus) 1 tab DAILY PO Last administered on at 08:03; Start 04/30/18 at 09:00 Amlodipine Besylate (Norvasc) 10 mg DAILY PO Last administered on 05/08/18at 08: 03; Start 04/30/18 at 09:00 Levothyroxine Sodium (Synthroid) 50 mcg DAILY07 PO Last administered on 05:52; Start 04/30/18 at 07:00; Stop 04/30/18 at 15:49; Status DC Gabapentin (Neurontin) 800 mg QID PO Last administered on 05/08/18 19:14; Start 04/30/18 at 09:00 Baclofen (Lioresal) 10 mg QID PO Last administered on 05/08/18 19:15; Start at 09:00 Mirtazapine (Remeron) 7.5 mg QHS PO Last administered on 05/08/18 19:15; Start 04/30/18 at 21:00 Olanzapine (ZyPREXA) 5 mg HS PO Last administered on 04/30/18 20:21; Start at 21:00; Stop 05/01/18 at 18:33; Status DC Trazodone HCl (Desyrel) 50 mg QHS PO Last administered on 05/08/18 19:14; Start 04/30/18 at 21:00 Duloxetine HCl (Cymbalta) 60 mg DAILY PO Last administered on 05/08/18 08:00; Start 04/30/18 at 09:00 Divalproex Sodium (Depakote Er) 1,000 mg QHS PO Last administered on 04/30/18 20:21; Start 04/30/18 at 21:00; Stop 05/01/18 at 18:33; Status DC Buspirone HCl (Buspar) 10 mg TID PO Last administered on 05/08/18 19:14; Start 04/30/18 at 09:00 Levothyroxine Sodium (Synthroid) 50 mcg DAILY06 PO Last administered on 05:42; Start 05/01/18 at 06:00 Divalproex Sodium (Depakote Er) 1,500 mg QHS PO Last administered on 05/08/18 19:15; Start 05/01/18 at 21:00 Risperidone (RisperDAL) 1 mg QHS PO Last administered on 05/03/18 21:23; Start 05/01/18 at 21:00; Stop 05/04/18 at 17:21; Status DC Risperidone (RisperDAL) 1 mg QHS PO Last administered on 05/08/18at 19:15; Start 05/04/18 at 21:00 Risperidone (RisperDAL) 0.25 mg QHS PO Last administered on 05/04/18at 20:07; Start 05/04/18 at 21:00; Stop 05/05/18 at 17:39; Status DC Olanzapine (ZyPREXA ZYDIS) 2.5 mg PRN Q2HR PRN PO PSYCHOSIS; Start 05/04/18 at 23:00 Risperidone (RisperDAL) 0.5 mg QHS PO Last administered on 05/08/18at 19:15; Start 05/05/18 at 21:00 Trazodone HCl (Desyrel) 50 mg PRN QHS PRN PO Insomnia; Start 05/06/18 at 22:30 Active Scripts Active Reported Buspirone Hcl 10 Mg Tablet 10 Mg PO TID Baclofen 10 Mg Tablet 10 Mg PO QID Gabapentin 100 Mg Capsule 100 Mg PO QID Gabapentin 800 Mg Tablet 800 Mg PO QID Levothyroxine Sodium 50 Mcg Tablet 50 Mcg PO DAILYAC Klonopin (Clonazepam) 0.5 Mg Tablet 0.5 Mg PO BID92 Lactulose 20 Gm/30 Ml Solution 30 Ml PO TID Norvasc (Amlodipine Besylate) 10 Mg Tablet 10 Mg PO DAILY Oxybutynin Chloride 5 Mg Tablet 2.5 Mg PO BID Depakote Er (Divalproex Sodium) 500 Mg Tab.er.24h 1,000 Mg PO HS Klor-Con M20 (Potassium Chloride) 20 Meq Tab.er.prt 20 Meq PO DAILY Cymbalta (Duloxetine Hcl) 60 Mg Capsule.dr 60 Mg PO DAILY Multivitamin with Iron Tablet (Multivitamin/Iron/Folic Acid) 1 Each Tablet 1 Tab PO DAILY Flomax (Tamsulosin Hcl) 0.4 Mg Cap.er.24h 0.8 Mg PO DAILY Trazodone Hcl 50 Mg Tablet 50 Mg PO HS Olanzapine 5 Mg Tablet 5 Mg PO HS Remeron (Mirtazapine) 15 Mg Tablet 7.5 Mg PO HS Bisacodyl 10 Mg Supp.rect 10 Mg RC PRN DAILY PRN Tylenol (Acetaminophen) 325 Mg Tablet 650 Mg PO PRN Q6HRS PRN I have reviewed the current psychotropics carefully including drug interactions. Risk benefit ratio favors no change other than as noted in my dictated progress note. Diagnosis: Problems: (1) Adult general medical examination (2) Anxiety disorder (3) Impulse control disorder (4) Schizophrenia, paranoid, chronic with acute exacerbation CATHY EMERY MD May 08, 2018 23:05
[2018-05-09] MEDS: LEVOTHYROXINE 50 MCG TABLET PO SCH (05:02)
[2018-05-09 05:48] VITALS: BP 126/85
[2018-05-09] MEDS: busPIRone 10 MG TABLET. PO SCH ×3 (07:37→20:42)
[2018-05-09] MEDS: DULoxetine HCL 60 MG CAPSULE.DR PO SCH (07:37)
[2018-05-09] MEDS: TAMSULOSIN 0.4 MG CAP.ER.24H. PO SCH (07:42)
[2018-05-09] MEDS: OXYBUTYNIN CHLORIDE 5 MG TABLET PO SCH ×2 (07:42→20:42)
[2018-05-09] MEDS: clonazePAM 0.5 MG TABLET PO SCH ×2 (07:43→13:34)
[2018-05-09] MEDS: GABAPENTIN 400 MG CAPSULE. PO SCH ×4 (07:44→20:42)
[2018-05-09] MEDS: POTASSIUM CHLORIDE 20 MEQ TABLET.ER. PO SCH (07:44)
[2018-05-09] MEDS: GABAPENTIN 100 MG CAPSULE. PO SCH ×4 (07:44→20:42)
[2018-05-09] MEDS: BACLOFEN 10 MG TABLET PO SCH ×4 (07:44→20:42)
[2018-05-09] MEDS: LACTULOSE 20 GM/30 ML SOLUTION. PO SCH ×5 (07:44→20:47)
[2018-05-09] MEDS: MULTIVITAMIN with MINERAL TABLET. PO SCH (07:45)
[2018-05-09] MEDS: NICOTINE 14MG PATCH. TD SCH (07:45)
[2018-05-09] MEDS: amLODIPine BESYLATE 10 MG TABLET PO SCH (07:45)
[2018-05-09 15:18] VITALS: BP 109/68
--- NOTE | 2018-05-09 17:31 | PN ---
DATE: 05/07/2018 PSYCHIATRIC PROGRESS NOTE This is a late entry 05/07/2018 covers elements not covered in my initial note. SUBJECTIVE: I met with the patient in the evening. The patient slept 8-1/2 hours previous night, compliant with medications, still somewhat paranoid at times. He was found crutched, in wheelchair, hiding some consequent to paranoia, but when I questioned him, he minimized this. REVIEW OF SYSTEMS: Ambulation impaired with walker. No CV, , pulmonary, eye, ENT system symptoms on review. MENTAL STATUS EXAM: Reasonably oriented. Speech is coherent, abstraction fair, computation, and one step on serial 7s. Insight fair. Judgment intact to standard questioning. Mood and affect is improved. LABORATORY DATA: Reviewed. IMPRESSION: Schizoaffective disorder, bipolar type, mixed with psychotic features, in partial remission. Rest unchanged. PLAN: No change from initial note for now. MAN Ty EMERY MD DR: SARINA/nilda JOB#: [id number] / [id number]
--- NOTE | 2018-05-09 20:06 | PDOC ---
Exam Note: Nguyễn Note: Please also refer to the separate dictated note~for this date of service dictated separately.~Patient seen individually. Discussed the patient with Nursing staff reviewed the chart.~Reviewed interim history and current functioning. Reviewed vital signs,~Labs/ Radiology~and current medications noted below. Continue current treatment with the changes noted in the dictated addendum note Assessment: Vital Signs: Vital Signs Date Time Temp Pulse Resp B/P (MAP) Pulse Ox O2 Delivery O2 Flow Rate FiO2 05/09/18 15:18 97.4 81 22 109/68 (82) 97 Aerosol Mask I&O Intake and Output 05/09/18 07:00 Intake Total 4840 ml Balance 4840 ml Intake Oral 4840 ml Current Medications: Meds: Current Medications Clonazepam (KlonoPIN) 0.5 mg BID92 PO Last administered on 05/09/18at 13:34; Start 04/30/18 at 09:00 Non-Formulary Medication (Buspirone Hcl ) 10 mg TID PO ; Start 04/30/18 at 09:00 ; Stop 04/30/18 at 09:00; Status DC Non-Formulary Medication (Divalproex Sodium (Depakote Er)) 1,000 mg HS PO ; Start 04/30/18 at 21:00; Stop 04/30/18 at 21:00; Status DC Non-Formulary Medication (Duloxetine Hcl (Cymbalta)) 60 mg DAILY PO ; Start at 09:00; Stop 04/30/18 at 09:00; Status DC Non-Formulary Medication (Mirtazapine (Remeron)) 7.5 mg HS PO ; Start 04/30/18 at 21:00; Stop 04/30/18 at 21:00; Status DC Non-Formulary Medication (Olanzapine ) 5 mg HS PO ; Start 04/30/18 at 21:00; Stop 04/30/18 at 21:00; Status DC Non-Formulary Medication (Trazodone Hcl ) 50 mg HS PO ; Start 04/30/18 at 21:00 ; Stop 04/30/18 at 21:00; Status DC Acetaminophen (Tylenol) 650 mg PRN Q6HRS PRN PO PAIN / TEMP; Start 04/29/18 at 23:45 Gabapentin (Neurontin) 100 mg QID PO ; Start 04/30/18 at 09:00; Stop 04/30/18 at 09:00; Status DC Lactulose (Lactulose) 20 gm TID PO Last administered on 05/09/18at 07:44; Start 04/30/18 at 09:00 Oxybutynin Chloride (Ditropan) 2.5 mg BID PO Last administered on 05/09/18at 07: 42; Start 04/30/18 at 09:00 Potassium Chloride (Klor-Con) 20 meq DAILY PO Last administered on 05/09/18at 07 :44; Start 04/30/18 at 09:00 Tamsulosin HCl (Flomax) 0.8 mg DAILY PO Last administered on 05/09/18at 07:42; Start 04/30/18 at 09:00 Non-Formulary Medication (Amlodipine Besylate (Norvasc)) 10 mg DAILY PO ; Start 04/30/18 at 09:00; Stop 04/30/18 at 09:00; Status DC Non-Formulary Medication (Baclofen ) 10 mg QID PO ; Start 04/30/18 at 09:00; Stop 04/30/18 at 09:00; Status DC Non-Formulary Medication (Bisacodyl ) 10 mg PRN DAILY PRN RC CONSTIPATION; Start 04/29/18 at 23:45; Stop 04/30/18 at 01:39; Status DC Non-Formulary Medication (Gabapentin ) 800 mg QID PO ; Start 04/30/18 at 09:00; Stop 04/30/18 at 09:00; Status DC Non-Formulary Medication (Levothyroxine Sodium ) 50 mcg DAILYAC PO ; Start 04/30 at 07:30; Stop 04/30/18 at 07:30; Status DC Non-Formulary Medication (Multivitamin/ Iron/Folic Acid (Multivitamin with Iron Tablet)) 1 tab DAILY PO ; Start 04/30/18 at 09:00; Stop 04/30/18 at 09:00; Status DC Multi-Ingredient Ointment (Analgesic [place]) 1 jing PRN QID PRN TP MUSCLE PAIN; Start 04/29/18 at 23:45 Al Hydroxide/Mg Hydroxide (Mylanta Plus Xs) 15 ml PRN AFTMEALHC PRN PO DYSPEPSIA; Start 04/29/18 at 23:45 Magnesium Hydroxide (Milk Of Magnesia) 2,400 mg PRN QHS PRN PO CONSTIPATION; Start 04/29/18 at 23:45 Nicotine (Nicoderm Cq 14mg) 1 patch DAILY TD Last administered on 05/07/18at 09: 11; Start 04/30/18 at 09:00 Gabapentin (Neurontin) 100 mg QID PO Last administered on 05/09/18at 17:28; Start 04/30/18 at 00:30 Non-Formulary Medication (Baclofen ) 10 mg QID PO ; Start 04/30/18 at 00:00; Stop 04/30/18 at 01:39; Status DC Non-Formulary Medication (Buspirone Hcl ) 10 mg TID PO ; Start 04/30/18 at 00:00 ; Stop 04/30/18 at 01:39; Status DC Non-Formulary Medication (Divalproex Sodium (Depakote Er)) 1,000 mg HS PO ; Start 04/30/18 at 00:00; Stop 04/30/18 at 01:39; Status DC Non-Formulary Medication (Gabapentin ) 800 mg QID PO ; Start 04/30/18 at 00:00; Stop 04/30/18 at 01:39; Status DC Non-Formulary Medication (Mirtazapine (Remeron)) 7.5 mg HS PO ; Start 04/30/18 at 00:00; Stop 04/30/18 at 01:39; Status DC Non-Formulary Medication (Olanzapine ) 5 mg HS PO ; Start 04/30/18 at 00:00; Stop 04/30/18 at 01:39; Status DC Non-Formulary Medication (Trazodone Hcl ) 50 mg HS PO ; Start 04/30/18 at 00:00 ; Stop 04/30/18 at 01:39; Status DC Bisacodyl (Dulcolax Supp) 10 mg PRN DAILY PRN [place] CONSTIPATION; Start 04/30/18 at 01:45 Multivitamins/ Calcium (Thera-M Plus) 1 tab DAILY PO Last administered on at 07:45; Start 04/30/18 at 09:00 Amlodipine Besylate (Norvasc) 10 mg DAILY PO Last administered on 05/09/18at 07: 45; Start 04/30/18 at 09:00 Levothyroxine Sodium (Synthroid) 50 mcg DAILY07 PO Last administered on 05:52; Start 04/30/18 at 07:00; Stop 04/30/18 at 15:49; Status DC Gabapentin (Neurontin) 800 mg QID PO Last administered on 05/09/18 17:28; Start 04/30/18 at 09:00 Baclofen (Lioresal) 10 mg QID PO Last administered on 05/09/18 17:27; Start at 09:00 Mirtazapine (Remeron) 7.5 mg QHS PO Last administered on 05/08/18 19:15; Start 04/30/18 at 21:00 Olanzapine (ZyPREXA) 5 mg HS PO Last administered on 04/30/18 20:21; Start at 21:00; Stop 05/01/18 at 18:33; Status DC Trazodone HCl (Desyrel) 50 mg QHS PO Last administered on 05/08/18 19:14; Start 04/30/18 at 21:00 Duloxetine HCl (Cymbalta) 60 mg DAILY PO Last administered on 05/09/18 07:37; Start 04/30/18 at 09:00 Divalproex Sodium (Depakote Er) 1,000 mg QHS PO Last administered on 04/30/18at 20:21; Start 04/30/18 at 21:00; Stop 05/01/18 at 18:33; Status DC Buspirone HCl (Buspar) 10 mg TID PO Last administered on 05/09/18at 13:34; Start 04/30/18 at 09:00 Levothyroxine Sodium (Synthroid) 50 mcg DAILY06 PO Last administered on 05:02; Start 05/01/18 at 06:00 Divalproex Sodium (Depakote Er) 1,500 mg QHS PO Last administered on 05/08/18 19:15; Start 05/01/18 at 21:00 Risperidone (RisperDAL) 1 mg QHS PO Last administered on 05/03/18at 21:23; Start 05/01/18 at 21:00; Stop 05/04/18 at 17:21; Status DC Risperidone (RisperDAL) 1 mg QHS PO Last administered on 05/08/18at 19:15; Start 05/04/18 at 21:00 Risperidone (RisperDAL) 0.25 mg QHS PO Last administered on 05/04/18at 20:07; Start 05/04/18 at 21:00; Stop 05/05/18 at 17:39; Status DC Olanzapine (ZyPREXA ZYDIS) 2.5 mg PRN Q2HR PRN PO PSYCHOSIS; Start 05/04/18 at 23:00 Risperidone (RisperDAL) 0.5 mg QHS PO Last administered on 05/08/18at 19:15; Start 05/05/18 at 21:00 Trazodone HCl (Desyrel) 50 mg PRN QHS PRN PO Insomnia; Start 05/06/18 at 22:30 Active Scripts Active Reported Buspirone Hcl 10 Mg Tablet 10 Mg PO TID Baclofen 10 Mg Tablet 10 Mg PO QID Gabapentin 100 Mg Capsule 100 Mg PO QID Gabapentin 800 Mg Tablet 800 Mg PO QID Levothyroxine Sodium 50 Mcg Tablet 50 Mcg PO DAILYAC Klonopin (Clonazepam) 0.5 Mg Tablet 0.5 Mg PO BID92 Lactulose 20 Gm/30 Ml Solution 30 Ml PO TID Norvasc (Amlodipine Besylate) 10 Mg Tablet 10 Mg PO DAILY Oxybutynin Chloride 5 Mg Tablet 2.5 Mg PO BID Depakote Er (Divalproex Sodium) 500 Mg Tab.er.24h 1,000 Mg PO HS Klor-Con M20 (Potassium Chloride) 20 Meq Tab.er.prt 20 Meq PO DAILY Cymbalta (Duloxetine Hcl) 60 Mg Capsule.dr 60 Mg PO DAILY Multivitamin with Iron Tablet (Multivitamin/Iron/Folic Acid) 1 Each Tablet 1 Tab PO DAILY Flomax (Tamsulosin Hcl) 0.4 Mg Cap.er.24h 0.8 Mg PO DAILY Trazodone Hcl 50 Mg Tablet 50 Mg PO HS Olanzapine 5 Mg Tablet 5 Mg PO HS Remeron (Mirtazapine) 15 Mg Tablet 7.5 Mg PO HS Bisacodyl 10 Mg Supp.rect 10 Mg RC PRN DAILY PRN Tylenol (Acetaminophen) 325 Mg Tablet 650 Mg PO PRN Q6HRS PRN I have reviewed the current psychotropics carefully including drug interactions. Risk benefit ratio favors no change other than as noted in my dictated progress note. Diagnosis: Problems: (1) Adult general medical examination (2) Anxiety disorder (3) Impulse control disorder (4) Schizophrenia, paranoid, chronic with acute exacerbation CATHY EMERY MD May 09, 2018 20:06
[2018-05-09] MEDS: risperiDONE 1 MG TABLET. PO SCH (20:42)
[2018-05-09] MEDS: traZODone 50 MG TABLET. PO SCH (20:42)
[2018-05-09] MEDS: risperiDONE 0.5 MG TABLET. PO SCH (20:42)
[2018-05-09] MEDS: MIRTAZAPINE 7.5 MG TABLET. PO SCH (20:42)
[2018-05-09] MEDS: DIVALPROEX ER 500 MG TAB.ER.24H PO SCH (20:43)
[2018-05-10 05:34] VITALS: BP 141/77
[2018-05-10] MEDS: LEVOTHYROXINE 50 MCG TABLET PO SCH (05:53)
[2018-05-10] MEDS: busPIRone 10 MG TABLET. PO SCH ×3 (08:37→19:43)
[2018-05-10] MEDS: DULoxetine HCL 60 MG CAPSULE.DR PO SCH (08:37)
[2018-05-10] MEDS: GABAPENTIN 100 MG CAPSULE. PO SCH ×4 (08:39→19:42)
[2018-05-10] MEDS: NICOTINE 14MG PATCH. TD SCH (08:39)
[2018-05-10] MEDS: OXYBUTYNIN CHLORIDE 5 MG TABLET PO SCH ×2 (08:39→19:42)
[2018-05-10] MEDS: TAMSULOSIN 0.4 MG CAP.ER.24H. PO SCH (08:39)
[2018-05-10] MEDS: BACLOFEN 10 MG TABLET PO SCH ×4 (08:39→19:43)
[2018-05-10] MEDS: MULTIVITAMIN with MINERAL TABLET. PO SCH (08:39)
[2018-05-10] MEDS: GABAPENTIN 400 MG CAPSULE. PO SCH ×4 (08:40→19:42)
[2018-05-10] MEDS: POTASSIUM CHLORIDE 20 MEQ TABLET.ER. PO SCH (08:41)
[2018-05-10] MEDS: clonazePAM 0.5 MG TABLET PO SCH ×2 (08:42→13:07)
[2018-05-10 08:51] VITALS: BP 115/77
[2018-05-10] MEDS: LACTULOSE 20 GM/30 ML SOLUTION. PO SCH ×3 (08:51→19:44)
[2018-05-10] MEDS: amLODIPine BESYLATE 10 MG TABLET PO SCH (08:51)
[2018-05-10 16:20] VITALS: BP 123/82
[2018-05-10] MEDS: DIVALPROEX ER 500 MG TAB.ER.24H PO SCH (19:42)
[2018-05-10] MEDS: risperiDONE 1 MG TABLET. PO SCH (19:42)
[2018-05-10] MEDS: MIRTAZAPINE 7.5 MG TABLET. PO SCH (19:42)
[2018-05-10] MEDS: traZODone 50 MG TABLET. PO SCH (19:43)
[2018-05-10] MEDS: risperiDONE 0.5 MG TABLET. PO SCH (19:43)
--- NOTE | 2018-05-10 20:22 | PDOC ---
Exam Note: Nguyễn Note: Please also refer to the separate dictated note~for this date of service dictated separately.~Patient seen individually. Discussed the patient with Nursing staff reviewed the chart.~Reviewed interim history and current functioning. Reviewed vital signs,~Labs/ Radiology~and current medications noted below. Continue current treatment with the changes noted in the dictated addendum note Assessment: Vital Signs: Vital Signs Date Time Temp Pulse Resp B/P (MAP) Pulse Ox O2 Delivery O2 Flow Rate FiO2 05/10/18 16:20 99.1 90 18 123/82 (96) 97 05/09/18 15:18 Aerosol Mask I&O Intake and Output 05/10/18 07:00 Intake Total 1800 ml Output Total 500 ml Balance 1300 ml Intake Oral 1800 ml Output Urine Total 500 ml # Bowel Movements 2 Current Medications: Meds: Current Medications Clonazepam (KlonoPIN) 0.5 mg BID92 PO Last administered on 05/10/18at 13:07; Start 04/30/18 at 09:00 Non-Formulary Medication (Buspirone Hcl ) 10 mg TID PO ; Start 04/30/18 at 09:00 ; Stop 04/30/18 at 09:00; Status DC Non-Formulary Medication (Divalproex Sodium (Depakote Er)) 1,000 mg HS PO ; Start 04/30/18 at 21:00; Stop 04/30/18 at 21:00; Status DC Non-Formulary Medication (Duloxetine Hcl (Cymbalta)) 60 mg DAILY PO ; Start at 09:00; Stop 04/30/18 at 09:00; Status DC Non-Formulary Medication (Mirtazapine (Remeron)) 7.5 mg HS PO ; Start 04/30/18 at 21:00; Stop 04/30/18 at 21:00; Status DC Non-Formulary Medication (Olanzapine ) 5 mg HS PO ; Start 04/30/18 at 21:00; Stop 04/30/18 at 21:00; Status DC Non-Formulary Medication (Trazodone Hcl ) 50 mg HS PO ; Start 04/30/18 at 21:00 ; Stop 04/30/18 at 21:00; Status DC Acetaminophen (Tylenol) 650 mg PRN Q6HRS PRN PO PAIN / TEMP; Start 04/29/18 at 23:45 Gabapentin (Neurontin) 100 mg QID PO ; Start 04/30/18 at 09:00; Stop 04/30/18 at 09:00; Status DC Lactulose (Lactulose) 20 gm TID PO Last administered on 05/09/18at 07:44; Start 04/30/18 at 09:00 Oxybutynin Chloride (Ditropan) 2.5 mg BID PO Last administered on 05/10/18at 19: 42; Start 04/30/18 at 09:00 Potassium Chloride (Klor-Con) 20 meq DAILY PO Last administered on 05/10/18at 08 :41; Start 04/30/18 at 09:00 Tamsulosin HCl (Flomax) 0.8 mg DAILY PO Last administered on 05/10/18at 08:39; Start 04/30/18 at 09:00 Non-Formulary Medication (Amlodipine Besylate (Norvasc)) 10 mg DAILY PO ; Start 04/30/18 at 09:00; Stop 04/30/18 at 09:00; Status DC Non-Formulary Medication (Baclofen ) 10 mg QID PO ; Start 04/30/18 at 09:00; Stop 04/30/18 at 09:00; Status DC Non-Formulary Medication (Bisacodyl ) 10 mg PRN DAILY PRN RC CONSTIPATION; Start 04/29/18 at 23:45; Stop 04/30/18 at 01:39; Status DC Non-Formulary Medication (Gabapentin ) 800 mg QID PO ; Start 04/30/18 at 09:00; Stop 04/30/18 at 09:00; Status DC Non-Formulary Medication (Levothyroxine Sodium ) 50 mcg DAILYAC PO ; Start 04/30 at 07:30; Stop 04/30/18 at 07:30; Status DC Non-Formulary Medication (Multivitamin/ Iron/Folic Acid (Multivitamin with Iron Tablet)) 1 tab DAILY PO ; Start 04/30/18 at 09:00; Stop 04/30/18 at 09:00; Status DC Multi-Ingredient Ointment (Analgesic [place]) 1 jing PRN QID PRN TP MUSCLE PAIN; Start 04/29/18 at 23:45 Al Hydroxide/Mg Hydroxide (Mylanta Plus Xs) 15 ml PRN AFTMEALHC PRN PO DYSPEPSIA; Start 04/29/18 at 23:45 Magnesium Hydroxide (Milk Of Magnesia) 2,400 mg PRN QHS PRN PO CONSTIPATION; Start 04/29/18 at 23:45 Nicotine (Nicoderm Cq 14mg) 1 patch DAILY TD Last administered on 05/10/18at 08: 39; Start 04/30/18 at 09:00 Gabapentin (Neurontin) 100 mg QID PO Last administered on 05/10/18at 19:42; Start 04/30/18 at 00:30 Non-Formulary Medication (Baclofen ) 10 mg QID PO ; Start 04/30/18 at 00:00; Stop 04/30/18 at 01:39; Status DC Non-Formulary Medication (Buspirone Hcl ) 10 mg TID PO ; Start 04/30/18 at 00:00 ; Stop 04/30/18 at 01:39; Status DC Non-Formulary Medication (Divalproex Sodium (Depakote Er)) 1,000 mg HS PO ; Start 04/30/18 at 00:00; Stop 04/30/18 at 01:39; Status DC Non-Formulary Medication (Gabapentin ) 800 mg QID PO ; Start 04/30/18 at 00:00; Stop 04/30/18 at 01:39; Status DC Non-Formulary Medication (Mirtazapine (Remeron)) 7.5 mg HS PO ; Start 04/30/18 at 00:00; Stop 04/30/18 at 01:39; Status DC Non-Formulary Medication (Olanzapine ) 5 mg HS PO ; Start 04/30/18 at 00:00; Stop 04/30/18 at 01:39; Status DC Non-Formulary Medication (Trazodone Hcl ) 50 mg HS PO ; Start 04/30/18 at 00:00 ; Stop 04/30/18 at 01:39; Status DC Bisacodyl (Dulcolax Supp) 10 mg PRN DAILY PRN [place] CONSTIPATION; Start 04/30/18 at 01:45 Multivitamins/ Calcium (Thera-M Plus) 1 tab DAILY PO Last administered on at 08:39; Start 04/30/18 at 09:00 Amlodipine Besylate (Norvasc) 10 mg DAILY PO Last administered on 05/10/18at 08: 51; Start 04/30/18 at 09:00 Levothyroxine Sodium (Synthroid) 50 mcg DAILY07 PO Last administered on 05:52; Start 04/30/18 at 07:00; Stop 04/30/18 at 15:49; Status DC Gabapentin (Neurontin) 800 mg QID PO Last administered on 05/10/18 19:42; Start 04/30/18 at 09:00 Baclofen (Lioresal) 10 mg QID PO Last administered on 05/10/18 19:43; Start at 09:00 Mirtazapine (Remeron) 7.5 mg QHS PO Last administered on 05/10/18 19:42; Start 04/30/18 at 21:00 Olanzapine (ZyPREXA) 5 mg HS PO Last administered on 04/30/18 20:21; Start at 21:00; Stop 05/01/18 at 18:33; Status DC Trazodone HCl (Desyrel) 50 mg QHS PO Last administered on 05/10/18 19:43; Start 04/30/18 at 21:00 Duloxetine HCl (Cymbalta) 60 mg DAILY PO Last administered on 05/10/18 08:37; Start 04/30/18 at 09:00 Divalproex Sodium (Depakote Er) 1,000 mg QHS PO Last administered on 04/30/18 20:21; Start 04/30/18 at 21:00; Stop 05/01/18 at 18:33; Status DC Buspirone HCl (Buspar) 10 mg TID PO Last administered on 05/10/18 19:43; Start 04/30/18 at 09:00 Levothyroxine Sodium (Synthroid) 50 mcg DAILY06 PO Last administered on 05:53; Start 05/01/18 at 06:00 Divalproex Sodium (Depakote Er) 1,500 mg QHS PO Last administered on 05/10/18 19:42; Start 05/01/18 at 21:00 Risperidone (RisperDAL) 1 mg QHS PO Last administered on 05/03/18 21:23; Start 05/01/18 at 21:00; Stop 05/04/18 at 17:21; Status DC Risperidone (RisperDAL) 1 mg QHS PO Last administered on 05/10/18at 19:42; Start 05/04/18 at 21:00 Risperidone (RisperDAL) 0.25 mg QHS PO Last administered on 05/04/18at 20:07; Start 05/04/18 at 21:00; Stop 05/05/18 at 17:39; Status DC Olanzapine (ZyPREXA ZYDIS) 2.5 mg PRN Q2HR PRN PO PSYCHOSIS; Start 05/04/18 at 23:00 Risperidone (RisperDAL) 0.5 mg QHS PO Last administered on 05/10/18at 19:43; Start 05/05/18 at 21:00 Trazodone HCl (Desyrel) 50 mg PRN QHS PRN PO Insomnia; Start 05/06/18 at 22:30 Active Scripts Active Reported Buspirone Hcl 10 Mg Tablet 10 Mg PO TID Baclofen 10 Mg Tablet 10 Mg PO QID Gabapentin 100 Mg Capsule 100 Mg PO QID Gabapentin 800 Mg Tablet 800 Mg PO QID Levothyroxine Sodium 50 Mcg Tablet 50 Mcg PO DAILYAC Klonopin (Clonazepam) 0.5 Mg Tablet 0.5 Mg PO BID92 Lactulose 20 Gm/30 Ml Solution 30 Ml PO TID Norvasc (Amlodipine Besylate) 10 Mg Tablet 10 Mg PO DAILY Oxybutynin Chloride 5 Mg Tablet 2.5 Mg PO BID Depakote Er (Divalproex Sodium) 500 Mg Tab.er.24h 1,000 Mg PO HS Klor-Con M20 (Potassium Chloride) 20 Meq Tab.er.prt 20 Meq PO DAILY Cymbalta (Duloxetine Hcl) 60 Mg Capsule.dr 60 Mg PO DAILY Multivitamin with Iron Tablet (Multivitamin/Iron/Folic Acid) 1 Each Tablet 1 Tab PO DAILY Flomax (Tamsulosin Hcl) 0.4 Mg Cap.er.24h 0.8 Mg PO DAILY Trazodone Hcl 50 Mg Tablet 50 Mg PO HS Olanzapine 5 Mg Tablet 5 Mg PO HS Remeron (Mirtazapine) 15 Mg Tablet 7.5 Mg PO HS Bisacodyl 10 Mg Supp.rect 10 Mg RC PRN DAILY PRN Tylenol (Acetaminophen) 325 Mg Tablet 650 Mg PO PRN Q6HRS PRN I have reviewed the current psychotropics carefully including drug interactions. Risk benefit ratio favors no change other than as noted in my dictated progress note. Diagnosis: Problems: (1) Adult general medical examination (2) Anxiety disorder (3) Impulse control disorder (4) Schizophrenia, paranoid, chronic with acute exacerbation CATHY EMERY MD May 10, 2018 20:22
--- NOTE | 2018-05-10 22:26 | PN ---
DATE: 05/08/2018 PSYCHIATRIC PROGRESS NOTE This late entry 05/08/2018 covers elements not covered in my initial note. SUBJECTIVE: I met with the patient in the evening. The patient slept 8 hours previous night. The patient remains somewhat paranoid, suspicious at times, but less so than before. He talks in whispers, which he did with me in the evening. Rest of the day, he is doing better. REVIEW OF SYSTEMS: Ambulation impaired with walker. No CV, , pulmonary, eye system symptoms on review. MENTAL STATUS EXAM: Oriented to himself and situation. Speech moderate, latency of coherent. Abstraction fair. Computation, able to do two steps on serial 7's, remembered 2/3 objects at 3 minutes. No suicidal or homicidal ideation. Attention span somewhat short. Language function intact. Intellect average. Insight fair. Judgment intact to standard questioning. IMPRESSION: Schizoaffective disorder, bipolar type, mixed with psychotic features, in partial remission. Rest unchanged. PLAN: Continue psychotropics from initial note. Valproic acid level therapeutic at 61. MAN Ty EMERY MD DR: SARINA/nilda JOB#: [id number] / [id number]
--- NOTE | 2018-05-10 22:32 | PN ---
DATE: 05/09/2018 PSYCHIATRIC PROGRESS NOTE This late entry 05/09/2018 covers elements not covered in my initial note. SUBJECTIVE: I met with the patient in the evening at length in his room. The patient slept 3 hours previous night. Overall, he is doing better, compliant with medications, less paranoid. REVIEW OF SYSTEMS: Ambulation impaired with walker. No CV, , pulmonary, eye, ENT system symptoms on review. MENTAL STATUS EXAM: Oriented to himself and situation. Speech is coherent, has some latency. Abstraction fair. Computation impaired. Language function intact. Attention span short. Mood and affect at times somewhat anxious secondary to paranoia, but generally improved. LABORATORY DATA: Reviewed. IMPRESSION: Unchanged from initial note. PLAN: No change from initial note. MAN Ty EMERY MD DR: SARINA/nilda JOB#: [id number] / [id number]
[2018-05-11 05:35] VITALS: BP 131/88
[2018-05-11] MEDS: LEVOTHYROXINE 50 MCG TABLET PO SCH (05:46)
[2018-05-11] MEDS: LACTULOSE 20 GM/30 ML SOLUTION. PO SCH ×3 (09:22→20:45)
[2018-05-11] MEDS: busPIRone 10 MG TABLET. PO SCH ×3 (09:22→20:38)
[2018-05-11] MEDS: NICOTINE 14MG PATCH. TD SCH (09:22)
[2018-05-11] MEDS: DULoxetine HCL 60 MG CAPSULE.DR PO SCH (09:22)
[2018-05-11] MEDS: amLODIPine BESYLATE 10 MG TABLET PO SCH (09:22)
[2018-05-11] MEDS: GABAPENTIN 400 MG CAPSULE. PO SCH ×4 (09:22→20:39)
[2018-05-11] MEDS: BACLOFEN 10 MG TABLET PO SCH ×4 (09:22→20:39)
[2018-05-11] MEDS: GABAPENTIN 100 MG CAPSULE. PO SCH ×4 (09:23→20:38)
[2018-05-11] MEDS: POTASSIUM CHLORIDE 20 MEQ TABLET.ER. PO SCH (09:23)
[2018-05-11] MEDS: TAMSULOSIN 0.4 MG CAP.ER.24H. PO SCH (09:23)
[2018-05-11] MEDS: OXYBUTYNIN CHLORIDE 5 MG TABLET PO SCH ×2 (09:23→20:39)
[2018-05-11] MEDS: MULTIVITAMIN with MINERAL TABLET. PO SCH (09:23)
[2018-05-11] MEDS: clonazePAM 0.5 MG TABLET PO SCH ×2 (09:24→13:17)
[2018-05-11 16:02] VITALS: BP 112/70
[2018-05-11] MEDS: MIRTAZAPINE 7.5 MG TABLET. PO SCH (20:38)
[2018-05-11] MEDS: DIVALPROEX ER 500 MG TAB.ER.24H PO SCH (20:39)
[2018-05-11] MEDS: traZODone 50 MG TABLET. PO SCH (20:39)
[2018-05-11] MEDS: risperiDONE 1 MG TABLET. PO SCH (20:39)
[2018-05-11] MEDS: risperiDONE 0.5 MG TABLET. PO SCH (20:39)
--- NOTE | 2018-05-11 20:47 | PDOC ---
Exam Note: Nguyễn Note: Please also refer to the separate dictated note~for this date of service dictated separately.~Patient seen individually. Discussed the patient with Nursing staff reviewed the chart.~Reviewed interim history and current functioning. Reviewed vital signs,~Labs/ Radiology~and current medications noted below. Continue current treatment with the changes noted in the dictated addendum note Assessment: Vital Signs: Vital Signs Date Time Temp Pulse Resp B/P (MAP) Pulse Ox O2 Delivery O2 Flow Rate FiO2 05/11/18 16:02 98.0 84 16 112/70 (84) 94 Room Air I&O Intake and Output 05/11/18 07:00 Intake Total 2040 ml Balance 2040 ml Intake Oral 2040 ml # Bowel Movements 1 Current Medications: Meds: Current Medications Clonazepam (KlonoPIN) 0.5 mg BID92 PO Last administered on 05/11/18at 13:17; Start 04/30/18 at 09:00 Non-Formulary Medication (Buspirone Hcl ) 10 mg TID PO ; Start 04/30/18 at 09:00 ; Stop 04/30/18 at 09:00; Status DC Non-Formulary Medication (Divalproex Sodium (Depakote Er)) 1,000 mg HS PO ; Start 04/30/18 at 21:00; Stop 04/30/18 at 21:00; Status DC Non-Formulary Medication (Duloxetine Hcl (Cymbalta)) 60 mg DAILY PO ; Start at 09:00; Stop 04/30/18 at 09:00; Status DC Non-Formulary Medication (Mirtazapine (Remeron)) 7.5 mg HS PO ; Start 04/30/18 at 21:00; Stop 04/30/18 at 21:00; Status DC Non-Formulary Medication (Olanzapine ) 5 mg HS PO ; Start 04/30/18 at 21:00; Stop 04/30/18 at 21:00; Status DC Non-Formulary Medication (Trazodone Hcl ) 50 mg HS PO ; Start 04/30/18 at 21:00 ; Stop 04/30/18 at 21:00; Status DC Acetaminophen (Tylenol) 650 mg PRN Q6HRS PRN PO PAIN / TEMP; Start 04/29/18 at 23:45 Gabapentin (Neurontin) 100 mg QID PO ; Start 04/30/18 at 09:00; Stop 04/30/18 at 09:00; Status DC Lactulose (Lactulose) 20 gm TID PO Last administered on 05/11/18at 09:22; Start 04/30/18 at 09:00 Oxybutynin Chloride (Ditropan) 2.5 mg BID PO Last administered on 05/11/18at 20: 39; Start 04/30/18 at 09:00 Potassium Chloride (Klor-Con) 20 meq DAILY PO Last administered on 05/11/18at 09 :23; Start 04/30/18 at 09:00 Tamsulosin HCl (Flomax) 0.8 mg DAILY PO Last administered on 05/11/18at 09:23; Start 04/30/18 at 09:00 Non-Formulary Medication (Amlodipine Besylate (Norvasc)) 10 mg DAILY PO ; Start 04/30/18 at 09:00; Stop 04/30/18 at 09:00; Status DC Non-Formulary Medication (Baclofen ) 10 mg QID PO ; Start 04/30/18 at 09:00; Stop 04/30/18 at 09:00; Status DC Non-Formulary Medication (Bisacodyl ) 10 mg PRN DAILY PRN RC CONSTIPATION; Start 04/29/18 at 23:45; Stop 04/30/18 at 01:39; Status DC Non-Formulary Medication (Gabapentin ) 800 mg QID PO ; Start 04/30/18 at 09:00; Stop 04/30/18 at 09:00; Status DC Non-Formulary Medication (Levothyroxine Sodium ) 50 mcg DAILYAC PO ; Start 04/30 at 07:30; Stop 04/30/18 at 07:30; Status DC Non-Formulary Medication (Multivitamin/ Iron/Folic Acid (Multivitamin with Iron Tablet)) 1 tab DAILY PO ; Start 04/30/18 at 09:00; Stop 04/30/18 at 09:00; Status DC Multi-Ingredient Ointment (Analgesic [place]) 1 jing PRN QID PRN TP MUSCLE PAIN; Start 04/29/18 at 23:45 Al Hydroxide/Mg Hydroxide (Mylanta Plus Xs) 15 ml PRN AFTMEALHC PRN PO DYSPEPSIA; Start 04/29/18 at 23:45 Magnesium Hydroxide (Milk Of Magnesia) 2,400 mg PRN QHS PRN PO CONSTIPATION; Start 04/29/18 at 23:45 Nicotine (Nicoderm Cq 14mg) 1 patch DAILY TD Last administered on 05/11/18at 09: 22; Start 04/30/18 at 09:00 Gabapentin (Neurontin) 100 mg QID PO Last administered on 05/11/18at 20:38; Start 04/30/18 at 00:30 Non-Formulary Medication (Baclofen ) 10 mg QID PO ; Start 04/30/18 at 00:00; Stop 04/30/18 at 01:39; Status DC Non-Formulary Medication (Buspirone Hcl ) 10 mg TID PO ; Start 04/30/18 at 00:00 ; Stop 04/30/18 at 01:39; Status DC Non-Formulary Medication (Divalproex Sodium (Depakote Er)) 1,000 mg HS PO ; Start 04/30/18 at 00:00; Stop 04/30/18 at 01:39; Status DC Non-Formulary Medication (Gabapentin ) 800 mg QID PO ; Start 04/30/18 at 00:00; Stop 04/30/18 at 01:39; Status DC Non-Formulary Medication (Mirtazapine (Remeron)) 7.5 mg HS PO ; Start 04/30/18 at 00:00; Stop 04/30/18 at 01:39; Status DC Non-Formulary Medication (Olanzapine ) 5 mg HS PO ; Start 04/30/18 at 00:00; Stop 04/30/18 at 01:39; Status DC Non-Formulary Medication (Trazodone Hcl ) 50 mg HS PO ; Start 04/30/18 at 00:00 ; Stop 04/30/18 at 01:39; Status DC Bisacodyl (Dulcolax Supp) 10 mg PRN DAILY PRN [place] CONSTIPATION; Start 04/30/18 at 01:45 Multivitamins/ Calcium (Thera-M Plus) 1 tab DAILY PO Last administered on at 09:23; Start 04/30/18 at 09:00 Amlodipine Besylate (Norvasc) 10 mg DAILY PO Last administered on 05/11/18at 09: 22; Start 04/30/18 at 09:00 Levothyroxine Sodium (Synthroid) 50 mcg DAILY07 PO Last administered on 05:52; Start 04/30/18 at 07:00; Stop 04/30/18 at 15:49; Status DC Gabapentin (Neurontin) 800 mg QID PO Last administered on 05/11/18 20:39; Start 04/30/18 at 09:00 Baclofen (Lioresal) 10 mg QID PO Last administered on 05/11/18 20:39; Start at 09:00 Mirtazapine (Remeron) 7.5 mg QHS PO Last administered on 05/11/18 20:38; Start 04/30/18 at 21:00 Olanzapine (ZyPREXA) 5 mg HS PO Last administered on 04/30/18 20:21; Start at 21:00; Stop 05/01/18 at 18:33; Status DC Trazodone HCl (Desyrel) 50 mg QHS PO Last administered on 05/11/18 20:39; Start 04/30/18 at 21:00 Duloxetine HCl (Cymbalta) 60 mg DAILY PO Last administered on 05/11/18 09:22; Start 04/30/18 at 09:00 Divalproex Sodium (Depakote Er) 1,000 mg QHS PO Last administered on 04/30/18 20:21; Start 04/30/18 at 21:00; Stop 05/01/18 at 18:33; Status DC Buspirone HCl (Buspar) 10 mg TID PO Last administered on 05/11/18 20:38; Start 04/30/18 at 09:00 Levothyroxine Sodium (Synthroid) 50 mcg DAILY06 PO Last administered on 05:46; Start 05/01/18 at 06:00 Divalproex Sodium (Depakote Er) 1,500 mg QHS PO Last administered on 05/11/18 20:39; Start 05/01/18 at 21:00 Risperidone (RisperDAL) 1 mg QHS PO Last administered on 05/03/18 21:23; Start 05/01/18 at 21:00; Stop 05/04/18 at 17:21; Status DC Risperidone (RisperDAL) 1 mg QHS PO Last administered on 05/11/18at 20:39; Start 05/04/18 at 21:00 Risperidone (RisperDAL) 0.25 mg QHS PO Last administered on 05/04/18at 20:07; Start 05/04/18 at 21:00; Stop 05/05/18 at 17:39; Status DC Olanzapine (ZyPREXA ZYDIS) 2.5 mg PRN Q2HR PRN PO PSYCHOSIS; Start 05/04/18 at 23:00 Risperidone (RisperDAL) 0.5 mg QHS PO Last administered on 05/11/18at 20:39; Start 05/05/18 at 21:00 Trazodone HCl (Desyrel) 50 mg PRN QHS PRN PO Insomnia; Start 05/06/18 at 22:30 Active Scripts Active Reported Buspirone Hcl 10 Mg Tablet 10 Mg PO TID Baclofen 10 Mg Tablet 10 Mg PO QID Gabapentin 100 Mg Capsule 100 Mg PO QID Gabapentin 800 Mg Tablet 800 Mg PO QID Levothyroxine Sodium 50 Mcg Tablet 50 Mcg PO DAILYAC Klonopin (Clonazepam) 0.5 Mg Tablet 0.5 Mg PO BID92 Lactulose 20 Gm/30 Ml Solution 30 Ml PO TID Norvasc (Amlodipine Besylate) 10 Mg Tablet 10 Mg PO DAILY Oxybutynin Chloride 5 Mg Tablet 2.5 Mg PO BID Depakote Er (Divalproex Sodium) 500 Mg Tab.er.24h 1,000 Mg PO HS Klor-Con M20 (Potassium Chloride) 20 Meq Tab.er.prt 20 Meq PO DAILY Cymbalta (Duloxetine Hcl) 60 Mg Capsule.dr 60 Mg PO DAILY Multivitamin with Iron Tablet (Multivitamin/Iron/Folic Acid) 1 Each Tablet 1 Tab PO DAILY Flomax (Tamsulosin Hcl) 0.4 Mg Cap.er.24h 0.8 Mg PO DAILY Trazodone Hcl 50 Mg Tablet 50 Mg PO HS Olanzapine 5 Mg Tablet 5 Mg PO HS Remeron (Mirtazapine) 15 Mg Tablet 7.5 Mg PO HS Bisacodyl 10 Mg Supp.rect 10 Mg RC PRN DAILY PRN Tylenol (Acetaminophen) 325 Mg Tablet 650 Mg PO PRN Q6HRS PRN I have reviewed the current psychotropics carefully including drug interactions. Risk benefit ratio favors no change other than as noted in my dictated progress note. Diagnosis: Problems: (1) Adult general medical examination (2) Anxiety disorder (3) Impulse control disorder (4) Schizophrenia, paranoid, chronic with acute exacerbation CATHY EMERY MD May 11, 2018 20:47
--- NOTE | 2018-05-11 22:37 | PN ---
DATE: 05/10/2018 This is a late entry for 05/10/2018 covers elements not covered in my initial note. SUBJECTIVE: I met with the patient in the evening. The patient slept 5-1/4 hours previous night, alert, oriented, does not complain of any pain. REVIEW OF SYSTEMS: Ambulation impaired with walker. No CV, , pulmonary, eye system symptoms on review. He has not been found crouching under the chairs or paranoid as before, which is an improvement. MENTAL STATUS EXAM: Reasonably oriented. Speech is coherent, met with him at some length in his room. Abstraction fair, computation impaired, language function intact, attention span short. Mood and affect somewhat withdrawn at times, but less so than before, less psychotic. LABORATORY DATA: Reviewed. IMPRESSION: Schizoaffective disorder, bipolar type, mixed with psychotic features, in partial remission. Rest unchanged. PLAN: Continue psychotropics mentioned in my initial note. No further change at this time. We will await consult with Dr. Gutierrez. MAN Ty EMERY MD DR: SARINA/nilda JOB#: [id number] / [id number]
[2018-05-12 05:24] VITALS: BP 133/91
[2018-05-12] MEDS: LEVOTHYROXINE 50 MCG TABLET PO SCH (05:46)
[2018-05-12] MEDS: LACTULOSE 20 GM/30 ML SOLUTION. PO SCH ×4 (08:55→19:49)
[2018-05-12] MEDS: GABAPENTIN 400 MG CAPSULE. PO SCH ×4 (08:55→19:46)
[2018-05-12] MEDS: busPIRone 10 MG TABLET. PO SCH ×3 (08:55→19:47)
[2018-05-12] MEDS: NICOTINE 14MG PATCH. TD SCH ×2 (08:55→09:19)
[2018-05-12] MEDS: TAMSULOSIN 0.4 MG CAP.ER.24H. PO SCH (08:56)
[2018-05-12] MEDS: POTASSIUM CHLORIDE 20 MEQ TABLET.ER. PO SCH (08:56)
[2018-05-12] MEDS: OXYBUTYNIN CHLORIDE 5 MG TABLET PO SCH ×2 (08:56→19:48)
[2018-05-12] MEDS: GABAPENTIN 100 MG CAPSULE. PO SCH ×4 (08:56→19:48)
[2018-05-12] MEDS: DULoxetine HCL 60 MG CAPSULE.DR PO SCH (08:56)
[2018-05-12] MEDS: BACLOFEN 10 MG TABLET PO SCH ×4 (08:56→19:47)
[2018-05-12] MEDS: amLODIPine BESYLATE 10 MG TABLET PO SCH (08:57)
[2018-05-12] MEDS: MULTIVITAMIN with MINERAL TABLET. PO SCH (08:57)
[2018-05-12] MEDS: clonazePAM 0.5 MG TABLET PO SCH ×2 (09:00→14:38)
[2018-05-12 16:38] VITALS: BP 105/72
[2018-05-12] MEDS: DIVALPROEX ER 500 MG TAB.ER.24H PO SCH (19:47)
[2018-05-12] MEDS: MIRTAZAPINE 7.5 MG TABLET. PO SCH (19:48)
[2018-05-12] MEDS: risperiDONE 0.5 MG TABLET. PO SCH (19:48)
[2018-05-12] MEDS: risperiDONE 1 MG TABLET. PO SCH (19:48)
[2018-05-12] MEDS: traZODone 50 MG TABLET. PO SCH (19:48)
--- NOTE | 2018-05-12 21:13 | PDOC ---
Exam Note: Nguyễn Note: Please also refer to the separate dictated note~for this date of service dictated separately.~Patient seen individually. Discussed the patient with Nursing staff reviewed the chart.~Reviewed interim history and current functioning. Reviewed vital signs,~Labs/ Radiology~and current medications noted below. Continue current treatment with the changes noted in the dictated addendum note Assessment: Vital Signs: Vital Signs Date Time Temp Pulse Resp B/P (MAP) Pulse Ox O2 Delivery O2 Flow Rate FiO2 05/12/18 16:38 98.1 78 18 105/72 (83) 95 Room Air I&O Intake and Output 05/12/18 07:00 Intake Total 1440 ml Balance 1440 ml Intake Oral 1440 ml Current Medications: Meds: Current Medications Clonazepam (KlonoPIN) 0.5 mg BID92 PO Last administered on 05/12/18at 14:38; Start 04/30/18 at 09:00 Non-Formulary Medication (Buspirone Hcl ) 10 mg TID PO ; Start 04/30/18 at 09:00 ; Stop 04/30/18 at 09:00; Status DC Non-Formulary Medication (Divalproex Sodium (Depakote Er)) 1,000 mg HS PO ; Start 04/30/18 at 21:00; Stop 04/30/18 at 21:00; Status DC Non-Formulary Medication (Duloxetine Hcl (Cymbalta)) 60 mg DAILY PO ; Start at 09:00; Stop 04/30/18 at 09:00; Status DC Non-Formulary Medication (Mirtazapine (Remeron)) 7.5 mg HS PO ; Start 04/30/18 at 21:00; Stop 04/30/18 at 21:00; Status DC Non-Formulary Medication (Olanzapine ) 5 mg HS PO ; Start 04/30/18 at 21:00; Stop 04/30/18 at 21:00; Status DC Non-Formulary Medication (Trazodone Hcl ) 50 mg HS PO ; Start 04/30/18 at 21:00 ; Stop 04/30/18 at 21:00; Status DC Acetaminophen (Tylenol) 650 mg PRN Q6HRS PRN PO PAIN / TEMP; Start 04/29/18 at 23:45 Gabapentin (Neurontin) 100 mg QID PO ; Start 04/30/18 at 09:00; Stop 04/30/18 at 09:00; Status DC Lactulose (Lactulose) 20 gm TID PO Last administered on 05/11/18at 09:22; Start 04/30/18 at 09:00 Oxybutynin Chloride (Ditropan) 2.5 mg BID PO Last administered on 05/12/18at 19: 48; Start 04/30/18 at 09:00 Potassium Chloride (Klor-Con) 20 meq DAILY PO Last administered on 05/12/18at 08 :56; Start 04/30/18 at 09:00 Tamsulosin HCl (Flomax) 0.8 mg DAILY PO Last administered on 05/12/18at 08:56; Start 04/30/18 at 09:00 Non-Formulary Medication (Amlodipine Besylate (Norvasc)) 10 mg DAILY PO ; Start 04/30/18 at 09:00; Stop 04/30/18 at 09:00; Status DC Non-Formulary Medication (Baclofen ) 10 mg QID PO ; Start 04/30/18 at 09:00; Stop 04/30/18 at 09:00; Status DC Non-Formulary Medication (Bisacodyl ) 10 mg PRN DAILY PRN RC CONSTIPATION; Start 04/29/18 at 23:45; Stop 04/30/18 at 01:39; Status DC Non-Formulary Medication (Gabapentin ) 800 mg QID PO ; Start 04/30/18 at 09:00; Stop 04/30/18 at 09:00; Status DC Non-Formulary Medication (Levothyroxine Sodium ) 50 mcg DAILYAC PO ; Start 04/30 at 07:30; Stop 04/30/18 at 07:30; Status DC Non-Formulary Medication (Multivitamin/ Iron/Folic Acid (Multivitamin with Iron Tablet)) 1 tab DAILY PO ; Start 04/30/18 at 09:00; Stop 04/30/18 at 09:00; Status DC Multi-Ingredient Ointment (Analgesic [place]) 1 jing PRN QID PRN TP MUSCLE PAIN; Start 04/29/18 at 23:45 Al Hydroxide/Mg Hydroxide (Mylanta Plus Xs) 15 ml PRN AFTMEALHC PRN PO DYSPEPSIA; Start 04/29/18 at 23:45 Magnesium Hydroxide (Milk Of Magnesia) 2,400 mg PRN QHS PRN PO CONSTIPATION; Start 04/29/18 at 23:45 Nicotine (Nicoderm Cq 14mg) 1 patch DAILY TD Last administered on 05/11/18at 09: 22; Start 04/30/18 at 09:00; Stop 05/12/18 at 11:26; Status DC Gabapentin (Neurontin) 100 mg QID PO Last administered on 05/12/18at 19:48; Start 04/30/18 at 00:30 Non-Formulary Medication (Baclofen ) 10 mg QID PO ; Start 04/30/18 at 00:00; Stop 04/30/18 at 01:39; Status DC Non-Formulary Medication (Buspirone Hcl ) 10 mg TID PO ; Start 04/30/18 at 00:00 ; Stop 04/30/18 at 01:39; Status DC Non-Formulary Medication (Divalproex Sodium (Depakote Er)) 1,000 mg HS PO ; Start 04/30/18 at 00:00; Stop 04/30/18 at 01:39; Status DC Non-Formulary Medication (Gabapentin ) 800 mg QID PO ; Start 04/30/18 at 00:00; Stop 04/30/18 at 01:39; Status DC Non-Formulary Medication (Mirtazapine (Remeron)) 7.5 mg HS PO ; Start 04/30/18 at 00:00; Stop 04/30/18 at 01:39; Status DC Non-Formulary Medication (Olanzapine ) 5 mg HS PO ; Start 04/30/18 at 00:00; Stop 04/30/18 at 01:39; Status DC Non-Formulary Medication (Trazodone Hcl ) 50 mg HS PO ; Start 04/30/18 at 00:00 ; Stop 04/30/18 at 01:39; Status DC Bisacodyl (Dulcolax Supp) 10 mg PRN DAILY PRN [place] CONSTIPATION; Start 04/30/18 at 01:45 Multivitamins/ Calcium (Thera-M Plus) 1 tab DAILY PO Last administered on at 08:57; Start 04/30/18 at 09:00 Amlodipine Besylate (Norvasc) 10 mg DAILY PO Last administered on 05/12/18at 08: 57; Start 04/30/18 at 09:00 Levothyroxine Sodium (Synthroid) 50 mcg DAILY07 PO Last administered on 05:52; Start 04/30/18 at 07:00; Stop 04/30/18 at 15:49; Status DC Gabapentin (Neurontin) 800 mg QID PO Last administered on 05/12/18 19:46; Start 04/30/18 at 09:00 Baclofen (Lioresal) 10 mg QID PO Last administered on 05/12/18 19:47; Start at 09:00 Mirtazapine (Remeron) 7.5 mg QHS PO Last administered on 05/12/18 19:48; Start 04/30/18 at 21:00 Olanzapine (ZyPREXA) 5 mg HS PO Last administered on 04/30/18 20:21; Start at 21:00; Stop 05/01/18 at 18:33; Status DC Trazodone HCl (Desyrel) 50 mg QHS PO Last administered on 05/12/18 19:48; Start 04/30/18 at 21:00 Duloxetine HCl (Cymbalta) 60 mg DAILY PO Last administered on 05/12/18 08:56; Start 04/30/18 at 09:00 Divalproex Sodium (Depakote Er) 1,000 mg QHS PO Last administered on 04/30/18 20:21; Start 04/30/18 at 21:00; Stop 05/01/18 at 18:33; Status DC Buspirone HCl (Buspar) 10 mg TID PO Last administered on 05/12/18 19:47; Start 04/30/18 at 09:00 Levothyroxine Sodium (Synthroid) 50 mcg DAILY06 PO Last administered on 05:46; Start 05/01/18 at 06:00 Divalproex Sodium (Depakote Er) 1,500 mg QHS PO Last administered on 05/12/18 19:47; Start 05/01/18 at 21:00 Risperidone (RisperDAL) 1 mg QHS PO Last administered on 05/03/18 21:23; Start 05/01/18 at 21:00; Stop 05/04/18 at 17:21; Status DC Risperidone (RisperDAL) 1 mg QHS PO Last administered on 05/12/18at 19:48; Start 05/04/18 at 21:00 Risperidone (RisperDAL) 0.25 mg QHS PO Last administered on 05/04/18at 20:07; Start 05/04/18 at 21:00; Stop 05/05/18 at 17:39; Status DC Olanzapine (ZyPREXA ZYDIS) 2.5 mg PRN Q2HR PRN PO PSYCHOSIS; Start 05/04/18 at 23:00 Risperidone (RisperDAL) 0.5 mg QHS PO Last administered on 05/12/18at 19:48; Start 05/05/18 at 21:00 Trazodone HCl (Desyrel) 50 mg PRN QHS PRN PO Insomnia; Start 05/06/18 at 22:30 Nicotine (Nicoderm Cq 7mg) 1 patch DAILY TD ; Start 05/13/18 at 09:00 Active Scripts Active Reported Buspirone Hcl 10 Mg Tablet 10 Mg PO TID Baclofen 10 Mg Tablet 10 Mg PO QID Gabapentin 100 Mg Capsule 100 Mg PO QID Gabapentin 800 Mg Tablet 800 Mg PO QID Levothyroxine Sodium 50 Mcg Tablet 50 Mcg PO DAILYAC Klonopin (Clonazepam) 0.5 Mg Tablet 0.5 Mg PO BID92 Lactulose 20 Gm/30 Ml Solution 30 Ml PO TID Norvasc (Amlodipine Besylate) 10 Mg Tablet 10 Mg PO DAILY Oxybutynin Chloride 5 Mg Tablet 2.5 Mg PO BID Depakote Er (Divalproex Sodium) 500 Mg Tab.er.24h 1,000 Mg PO HS Klor-Con M20 (Potassium Chloride) 20 Meq Tab.er.prt 20 Meq PO DAILY Cymbalta (Duloxetine Hcl) 60 Mg Capsule.dr 60 Mg PO DAILY Multivitamin with Iron Tablet (Multivitamin/Iron/Folic Acid) 1 Each Tablet 1 Tab PO DAILY Flomax (Tamsulosin Hcl) 0.4 Mg Cap.er.24h 0.8 Mg PO DAILY Trazodone Hcl 50 Mg Tablet 50 Mg PO HS Olanzapine 5 Mg Tablet 5 Mg PO HS Remeron (Mirtazapine) 15 Mg Tablet 7.5 Mg PO HS Bisacodyl 10 Mg Supp.rect 10 Mg RC PRN DAILY PRN Tylenol (Acetaminophen) 325 Mg Tablet 650 Mg PO PRN Q6HRS PRN I have reviewed the current psychotropics carefully including drug interactions. Risk benefit ratio favors no change other than as noted in my dictated progress note. Diagnosis: Problems: (1) Adult general medical examination (2) Anxiety disorder (3) Impulse control disorder (4) Schizophrenia, paranoid, chronic with acute exacerbation CATHY EMERY MD May 12, 2018 21:13
--- NOTE | 2018-05-13 00:37 | PN ---
DATE: 05/11/2018 PSYCHIATRIC PROGRESS NOTE This late entry 05/11/2018 covers elements not covered in my initial note. SUBJECTIVE: I met with the patient in the evening at length in his room. Overall, the patient has shared with the nursing staff that he does not have the paranoia and delusions he was experiencing previously, but the previous evening he told the nursing staff, he felt there was a SWAT team out to get him. He slept 4-1/2 hours. REVIEW OF SYSTEMS: Ambulation impaired with walker. No CV, , pulmonary, eye, ENT system symptoms on review. MENTAL STATUS EXAM: The patient is reasonably oriented. Speech has some latency, coherent. Abstraction fair, computation impaired, language function intact, attention span short. Mood and affect somewhat withdrawn, but he does come out to the day room on a regular basis. LABORATORY DATA: Reviewed. IMPRESSION: Unchanged from initial note, schizoaffective disorder, bipolar type mixed with psychotic features, in partial remission. Rest unchanged. PLAN: No change from initial note. MAN Ty EMERY MD DR: SARINA/nilda JOB#: [id number] / [id number]
[2018-05-13 06:05] VITALS: BP 94/62
[2018-05-13] MEDS: LEVOTHYROXINE 50 MCG TABLET PO SCH (06:26)
[2018-05-13] MEDS: amLODIPine BESYLATE 10 MG TABLET PO SCH (09:00)
[2018-05-13] MEDS: OXYBUTYNIN CHLORIDE 5 MG TABLET PO SCH ×2 (09:14→20:32)
[2018-05-13] MEDS: DULoxetine HCL 60 MG CAPSULE.DR PO SCH (09:14)
[2018-05-13] MEDS: TAMSULOSIN 0.4 MG CAP.ER.24H. PO SCH (09:14)
[2018-05-13] MEDS: busPIRone 10 MG TABLET. PO SCH ×3 (09:14→20:32)
[2018-05-13] MEDS: POTASSIUM CHLORIDE 20 MEQ TABLET.ER. PO SCH (09:15)
[2018-05-13] MEDS: clonazePAM 0.5 MG TABLET PO SCH ×2 (09:15→13:42)
[2018-05-13] MEDS: BACLOFEN 10 MG TABLET PO SCH ×4 (09:16→20:38)
[2018-05-13] MEDS: GABAPENTIN 400 MG CAPSULE. PO SCH ×4 (09:16→20:31)
[2018-05-13] MEDS: GABAPENTIN 100 MG CAPSULE. PO SCH ×4 (09:16→20:32)
[2018-05-13] MEDS: MULTIVITAMIN with MINERAL TABLET. PO SCH (09:17)
[2018-05-13] MEDS: NICOTINE 7MG PATCH. TD SCH (09:17)
[2018-05-13] MEDS: LACTULOSE 20 GM/30 ML SOLUTION. PO SCH ×3 (09:26→20:33)
[2018-05-13 09:41] LABS: BASO % 1 % (0-3); EOS # 0.2 x10^3/uL (0.0-0.7); EOS % 3 % (0-3); HEMATOCRIT 40.7 % (39.0-53.0); HEMOGLOBIN 14.2 g/dL (13.0-17.5); LYMPH # 1.5 x10^3/uL (1.0-4.8); LYMPH % 22 % (24-48); MEAN CORPUSCULAR HEMOGLOBIN 31 pg (25-35); MEAN CORPUSCULAR HGB CONC 35 g/dL (31-37); MEAN CORPUSCULAR VOLUME 89 fL (79-100); MONO # 0.6 x10^3/uL (0.0-1.1); MONO % 9 % (0-9); NEUT # 4.3 x10^3uL (1.8-7.7); NEUT % 66 % (31-73); PLATELET COUNT 294 x10^3/uL (140-400); RED BLOOD COUNT 4.57 x10^6/uL (4.30-5.70); WHITE BLOOD COUNT 6.6 x10^3/uL (4.0-11.0)
[2018-05-13 10:03] LABS: ALBUMIN 3.4 g/dL (3.4-5.0); CALCIUM 8.8 mg/dL (8.5-10.1); CREATININE 0.6 mg/dL (0.7-1.3); GFR 138.9; POTASSIUM 4.3 mmol/L (3.5-5.1); TOTAL BILIRUBIN 0.4 mg/dL (0.2-1.0); TOTAL PROTEIN 6.7 g/dL (6.4-8.2)
[2018-05-13 15:51] VITALS: BP 108/75
[2018-05-13] MEDS: traZODone 50 MG TABLET. PO SCH (20:29)
[2018-05-13] MEDS: DIVALPROEX ER 500 MG TAB.ER.24H PO SCH (20:30)
[2018-05-13] MEDS: risperiDONE 1 MG TABLET. PO SCH (20:32)
[2018-05-13] MEDS: MIRTAZAPINE 7.5 MG TABLET. PO SCH (20:32)
[2018-05-13] MEDS: risperiDONE 0.5 MG TABLET. PO SCH (20:38)
--- NOTE | 2018-05-13 20:55 | PDOC ---
Exam Note: Nguyễn Note: Please also refer to the separate dictated note~for this date of service dictated separately.~Patient seen individually. Discussed the patient with Nursing staff reviewed the chart.~Reviewed interim history and current functioning. Reviewed vital signs,~Labs/ Radiology~and current medications noted below. Continue current treatment with the changes noted in the dictated addendum note Assessment: Vital Signs: Vital Signs Date Time Temp Pulse Resp B/P (MAP) Pulse Ox O2 Delivery O2 Flow Rate FiO2 05/13/18 15:51 98.1 82 20 108/75 (86) 97 Room Air I&O Intake and Output 05/13/18 07:00 Intake Total 1560 ml Balance 1560 ml Intake Oral 1560 ml # Voids 1 Labs: Laboratory Tests Test 05/13/18 09:33 White Blood Count 6.6 x10^3/uL (4.0-11.0) Red Blood Count 4.57 x10^6/uL (4.30-5.70) Hemoglobin 14.2 g/dL (13.0-17.5) Hematocrit 40.7 % (39.0-53.0) Mean Corpuscular Volume 89 fL (79-100) Mean Corpuscular Hemoglobin 31 pg (25-35) Mean Corpuscular Hemoglobin Concent 35 g/dL (31-37) Red Cell Distribution Width 14.0 % (11.5-14.5) Platelet Count 294 x10^3/uL (140-400) Neutrophils (%) (Auto) 66 % (31-73) Lymphocytes (%) (Auto) 22 % (24-48) L Monocytes (%) (Auto) 9 % (0-9) Eosinophils (%) (Auto) 3 % (0-3) Basophils (%) (Auto) 1 % (0-3) Neutrophils # (Auto) 4.3 x10^3uL (1.8-7.7) Lymphocytes # (Auto) 1.5 x10^3/uL (1.0-4.8) Monocytes # (Auto) 0.6 x10^3/uL (0.0-1.1) Eosinophils # (Auto) 0.2 x10^3/uL (0.0-0.7) Basophils # (Auto) 0.0 x10^3/uL (0.0-0.2) Sodium Level 133 mmol/L (136-145) L Potassium Level 4.3 mmol/L (3.5-5.1) Chloride Level 96 mmol/L (98-107) L Carbon Dioxide Level 32 mmol/L (21-32) Anion Gap 5 (6-14) L Blood Urea Nitrogen 11 mg/dL (8-26) Creatinine 0.6 mg/dL (0.7-1.3) L Estimated GFR (Cockcroft-Gault) 138.9 BUN/Creatinine Ratio 18 (6-20) Glucose Level 98 mg/dL (70-99) Calcium Level 8.8 mg/dL (8.5-10.1) Total Bilirubin 0.4 mg/dL (0.2-1.0) Aspartate Amino Transferase (AST) 17 U/L (15-37) Alanine Aminotransferase (ALT) 23 U/L (16-63) Alkaline Phosphatase 95 U/L (46-116) Total Protein 6.7 g/dL (6.4-8.2) Albumin 3.4 g/dL (3.4-5.0) Albumin/Globulin Ratio 1.0 (1.0-1.7) Current Medications: Meds: Current Medications Clonazepam (KlonoPIN) 0.5 mg BID92 PO Last administered on 05/13/18at 13:42; Start 04/30/18 at 09:00 Non-Formulary Medication (Buspirone Hcl ) 10 mg TID PO ; Start 04/30/18 at 09:00 ; Stop 04/30/18 at 09:00; Status DC Non-Formulary Medication (Divalproex Sodium (Depakote Er)) 1,000 mg HS PO ; Start 04/30/18 at 21:00; Stop 04/30/18 at 21:00; Status DC Non-Formulary Medication (Duloxetine Hcl (Cymbalta)) 60 mg DAILY PO ; Start at 09:00; Stop 04/30/18 at 09:00; Status DC Non-Formulary Medication (Mirtazapine (Remeron)) 7.5 mg HS PO ; Start 04/30/18 at 21:00; Stop 04/30/18 at 21:00; Status DC Non-Formulary Medication (Olanzapine ) 5 mg HS PO ; Start 04/30/18 at 21:00; Stop 04/30/18 at 21:00; Status DC Non-Formulary Medication (Trazodone Hcl ) 50 mg HS PO ; Start 04/30/18 at 21:00 ; Stop 04/30/18 at 21:00; Status DC Acetaminophen (Tylenol) 650 mg PRN Q6HRS PRN PO PAIN / TEMP; Start 04/29/18 at 23:45 Gabapentin (Neurontin) 100 mg QID PO ; Start 04/30/18 at 09:00; Stop 04/30/18 at 09:00; Status DC Lactulose (Lactulose) 20 gm TID PO Last administered on 05/13/18at 20:33; Start 04/30/18 at 09:00 Oxybutynin Chloride (Ditropan) 2.5 mg BID PO Last administered on 05/13/18at 20: 32; Start 04/30/18 at 09:00 Potassium Chloride (Klor-Con) 20 meq DAILY PO Last administered on 05/13/18at 09 :15; Start 04/30/18 at 09:00 Tamsulosin HCl (Flomax) 0.8 mg DAILY PO Last administered on 05/13/18at 09:14; Start 04/30/18 at 09:00 Non-Formulary Medication (Amlodipine Besylate (Norvasc)) 10 mg DAILY PO ; Start 04/30/18 at 09:00; Stop 04/30/18 at 09:00; Status DC Non-Formulary Medication (Baclofen ) 10 mg QID PO ; Start 04/30/18 at 09:00; Stop 04/30/18 at 09:00; Status DC Non-Formulary Medication (Bisacodyl ) 10 mg PRN DAILY PRN RC CONSTIPATION; Start 04/29/18 at 23:45; Stop 04/30/18 at 01:39; Status DC Non-Formulary Medication (Gabapentin ) 800 mg QID PO ; Start 04/30/18 at 09:00; Stop 04/30/18 at 09:00; Status DC Non-Formulary Medication (Levothyroxine Sodium ) 50 mcg DAILYAC PO ; Start 04/30 at 07:30; Stop 04/30/18 at 07:30; Status DC Non-Formulary Medication (Multivitamin/ Iron/Folic Acid (Multivitamin with Iron Tablet)) 1 tab DAILY PO ; Start 04/30/18 at 09:00; Stop 04/30/18 at 09:00; Status DC Multi-Ingredient Ointment (Analgesic [place]) 1 jing PRN QID PRN TP MUSCLE PAIN; Start 04/29/18 at 23:45 Al Hydroxide/Mg Hydroxide (Mylanta Plus Xs) 15 ml PRN AFTMEALHC PRN PO DYSPEPSIA; Start 04/29/18 at 23:45 Magnesium Hydroxide (Milk Of Magnesia) 2,400 mg PRN QHS PRN PO CONSTIPATION; Start 04/29/18 at 23:45 Nicotine (Nicoderm Cq 14mg) 1 patch DAILY TD Last administered on 05/11/18at 09: 22; Start 04/30/18 at 09:00; Stop 05/12/18 at 11:26; Status DC Gabapentin (Neurontin) 100 mg QID PO Last administered on 05/13/18at 20:32; Start 04/30/18 at 00:30 Non-Formulary Medication (Baclofen ) 10 mg QID PO ; Start 04/30/18 at 00:00; Stop 04/30/18 at 01:39; Status DC Non-Formulary Medication (Buspirone Hcl ) 10 mg TID PO ; Start 04/30/18 at 00:00 ; Stop 04/30/18 at 01:39; Status DC Non-Formulary Medication (Divalproex Sodium (Depakote Er)) 1,000 mg HS PO ; Start 04/30/18 at 00:00; Stop 04/30/18 at 01:39; Status DC Non-Formulary Medication (Gabapentin ) 800 mg QID PO ; Start 04/30/18 at 00:00; Stop 04/30/18 at 01:39; Status DC Non-Formulary Medication (Mirtazapine (Remeron)) 7.5 mg HS PO ; Start 04/30/18 at 00:00; Stop 04/30/18 at 01:39; Status DC Non-Formulary Medication (Olanzapine ) 5 mg HS PO ; Start 04/30/18 at 00:00; Stop 04/30/18 at 01:39; Status DC Non-Formulary Medication (Trazodone Hcl ) 50 mg HS PO ; Start 04/30/18 at 00:00 ; Stop 04/30/18 at 01:39; Status DC Bisacodyl (Dulcolax Supp) 10 mg PRN DAILY PRN [place] CONSTIPATION; Start 04/30/18 at 01:45 Multivitamins/ Calcium (Thera-M Plus) 1 tab DAILY PO Last administered on 09:17; Start 04/30/18 at 09:00 Amlodipine Besylate (Norvasc) 10 mg DAILY PO Last administered on 05/12/18 08: 57; Start 04/30/18 at 09:00 Levothyroxine Sodium (Synthroid) 50 mcg DAILY07 PO Last administered on 05:52; Start 04/30/18 at 07:00; Stop 04/30/18 at 15:49; Status DC Gabapentin (Neurontin) 800 mg QID PO Last administered on 05/13/18 20:31; Start 04/30/18 at 09:00 Baclofen (Lioresal) 10 mg QID PO Last administered on 05/13/18 20:38; Start at 09:00 Mirtazapine (Remeron) 7.5 mg QHS PO Last administered on 05/13/18 20:32; Start 04/30/18 at 21:00 Olanzapine (ZyPREXA) 5 mg HS PO Last administered on 04/30/18 20:21; Start at 21:00; Stop 05/01/18 at 18:33; Status DC Trazodone HCl (Desyrel) 50 mg QHS PO Last administered on 05/13/18 20:29; Start 04/30/18 at 21:00 Duloxetine HCl (Cymbalta) 60 mg DAILY PO Last administered on 05/13/18 09:14; Start 04/30/18 at 09:00 Divalproex Sodium (Depakote Er) 1,000 mg QHS PO Last administered on 04/30/18 20:21; Start 04/30/18 at 21:00; Stop 05/01/18 at 18:33; Status DC Buspirone HCl (Buspar) 10 mg TID PO Last administered on 05/13/18 20:32; Start 04/30/18 at 09:00 Levothyroxine Sodium (Synthroid) 50 mcg DAILY06 PO Last administered on 10/4/ 18at 06:26; Start 05/01/18 at 06:00 Divalproex Sodium (Depakote Er) 1,500 mg QHS PO Last administered on 05/13/18at 20:30; Start 05/01/18 at 21:00 Risperidone (RisperDAL) 1 mg QHS PO Last administered on 05/03/18at 21:23; Start 05/01/18 at 21:00; Stop 05/04/18 at 17:21; Status DC Risperidone (RisperDAL) 1 mg QHS PO Last administered on 05/13/18at 20:32; Start 05/04/18 at 21:00 Risperidone (RisperDAL) 0.25 mg QHS PO Last administered on 05/04/18at 20:07; Start 05/04/18 at 21:00; Stop 05/05/18 at 17:39; Status DC Olanzapine (ZyPREXA ZYDIS) 2.5 mg PRN Q2HR PRN PO PSYCHOSIS; Start 05/04/18 at 23:00 Risperidone (RisperDAL) 0.5 mg QHS PO Last administered on 05/13/18at 20:38; Start 05/05/18 at 21:00 Trazodone HCl (Desyrel) 50 mg PRN QHS PRN PO Insomnia; Start 05/06/18 at 22:30 Nicotine (Nicoderm Cq 7mg) 1 patch DAILY TD ; Start 05/13/18 at 09:00 Active Scripts Active Reported Buspirone Hcl 10 Mg Tablet 10 Mg PO TID Baclofen 10 Mg Tablet 10 Mg PO QID Gabapentin 100 Mg Capsule 100 Mg PO QID Gabapentin 800 Mg Tablet 800 Mg PO QID Levothyroxine Sodium 50 Mcg Tablet 50 Mcg PO DAILYAC Klonopin (Clonazepam) 0.5 Mg Tablet 0.5 Mg PO BID92 Lactulose 20 Gm/30 Ml Solution 30 Ml PO TID Norvasc (Amlodipine Besylate) 10 Mg Tablet 10 Mg PO DAILY Oxybutynin Chloride 5 Mg Tablet 2.5 Mg PO BID Depakote Er (Divalproex Sodium) 500 Mg Tab.er.24h 1,000 Mg PO HS Klor-Con M20 (Potassium Chloride) 20 Meq Tab.er.prt 20 Meq PO DAILY Cymbalta (Duloxetine Hcl) 60 Mg Capsule.dr 60 Mg PO DAILY Multivitamin with Iron Tablet (Multivitamin/Iron/Folic Acid) 1 Each Tablet 1 Tab PO DAILY Flomax (Tamsulosin Hcl) 0.4 Mg Cap.er.24h 0.8 Mg PO DAILY Trazodone Hcl 50 Mg Tablet 50 Mg PO HS Olanzapine 5 Mg Tablet 5 Mg PO HS Remeron (Mirtazapine) 15 Mg Tablet 7.5 Mg PO HS Bisacodyl 10 Mg Supp.rect 10 Mg RC PRN DAILY PRN Tylenol (Acetaminophen) 325 Mg Tablet 650 Mg PO PRN Q6HRS PRN I have reviewed the current psychotropics carefully including drug interactions. Risk benefit ratio favors no change other than as noted in my dictated progress note. Diagnosis: Problems: (1) Adult general medical examination (2) Anxiety disorder (3) Impulse control disorder (4) Schizophrenia, paranoid, chronic with acute exacerbation CATHY EMERY MD May 13, 2018 20:55
--- NOTE | 2018-05-13 23:26 | PN ---
DATE: 05/12/2018 This late entry for 05/12/2018 covers elements not covered in my initial note. SUBJECTIVE: I met with the patient in the evening. The patient slept 6-1/2 hours previous evening. He has not been delusional, doing better and more interactive. I met with him at length in his room. REVIEW OF SYSTEMS: Ambulation impaired with walker. No CV, , pulmonary, eye system symptoms on review. MENTAL STATUS EXAM: Reasonably oriented. Speech is coherent, has some latency. Abstraction fair, computation impaired, language function intact. Mood and affect is improved. LABORATORY DATA: Reviewed. IMPRESSION: Unchanged from initial note. PLAN: No change from initial note. CATHY EMERY MD DR: SARINA/nilda JOB#: [id number] / [id number]
[2018-05-14 05:53] VITALS: BP 112/76
[2018-05-14] MEDS: LEVOTHYROXINE 50 MCG TABLET PO SCH (05:54)
[2018-05-14] MEDS: POTASSIUM CHLORIDE 20 MEQ TABLET.ER. PO SCH (08:38)
[2018-05-14] MEDS: GABAPENTIN 100 MG CAPSULE. PO SCH ×4 (08:38→19:49)
[2018-05-14] MEDS: GABAPENTIN 400 MG CAPSULE. PO SCH ×4 (08:39→19:50)
[2018-05-14] MEDS: TAMSULOSIN 0.4 MG CAP.ER.24H. PO SCH (08:39)
[2018-05-14] MEDS: OXYBUTYNIN CHLORIDE 5 MG TABLET PO SCH ×2 (08:39→19:50)
[2018-05-14] MEDS: busPIRone 10 MG TABLET. PO SCH ×3 (08:39→19:49)
[2018-05-14] MEDS: DULoxetine HCL 60 MG CAPSULE.DR PO SCH (08:39)
[2018-05-14] MEDS: BACLOFEN 10 MG TABLET PO SCH ×4 (08:39→19:49)
[2018-05-14] MEDS: amLODIPine BESYLATE 10 MG TABLET PO SCH (08:39)
[2018-05-14] MEDS: MULTIVITAMIN with MINERAL TABLET. PO SCH (08:39)
[2018-05-14] MEDS: LACTULOSE 20 GM/30 ML SOLUTION. PO SCH ×3 (08:40→19:51)
[2018-05-14] MEDS: NICOTINE 7MG PATCH. TD SCH (08:40)
[2018-05-14] MEDS: clonazePAM 0.5 MG TABLET PO SCH ×2 (08:44→14:17)
[2018-05-14 16:21] VITALS: BP 118/79
[2018-05-14] MEDS: risperiDONE 0.5 MG TABLET. PO SCH (19:49)
[2018-05-14] MEDS: DIVALPROEX ER 500 MG TAB.ER.24H PO SCH (19:49)
[2018-05-14] MEDS: risperiDONE 1 MG TABLET. PO SCH (19:49)
[2018-05-14] MEDS: MIRTAZAPINE 7.5 MG TABLET. PO SCH (19:49)
[2018-05-14] MEDS: traZODone 50 MG TABLET. PO SCH (19:49)
--- NOTE | 2018-05-14 20:20 | PDOC ---
Exam Note: Nguyễn Note: Please also refer to the separate dictated note~for this date of service dictated separately.~Patient seen individually. Discussed the patient with Nursing staff reviewed the chart.~Reviewed interim history and current functioning. Reviewed vital signs,~Labs/ Radiology~and current medications noted below. Continue current treatment with the changes noted in the dictated addendum note Assessment: Vital Signs: Vital Signs Date Time Temp Pulse Resp B/P (MAP) Pulse Ox O2 Delivery O2 Flow Rate FiO2 05/14/18 16:21 98.4 78 17 118/79 (92) 97 Room Air I&O Intake and Output 05/14/18 07:00 Intake Total 1320 ml Balance 1320 ml Intake Oral 1320 ml Current Medications: Meds: Current Medications Clonazepam (KlonoPIN) 0.5 mg BID92 PO Last administered on 05/14/18at 14:17; Start 04/30/18 at 09:00 Non-Formulary Medication (Buspirone Hcl ) 10 mg TID PO ; Start 04/30/18 at 09:00 ; Stop 04/30/18 at 09:00; Status DC Non-Formulary Medication (Divalproex Sodium (Depakote Er)) 1,000 mg HS PO ; Start 04/30/18 at 21:00; Stop 04/30/18 at 21:00; Status DC Non-Formulary Medication (Duloxetine Hcl (Cymbalta)) 60 mg DAILY PO ; Start at 09:00; Stop 04/30/18 at 09:00; Status DC Non-Formulary Medication (Mirtazapine (Remeron)) 7.5 mg HS PO ; Start 04/30/18 at 21:00; Stop 04/30/18 at 21:00; Status DC Non-Formulary Medication (Olanzapine ) 5 mg HS PO ; Start 04/30/18 at 21:00; Stop 04/30/18 at 21:00; Status DC Non-Formulary Medication (Trazodone Hcl ) 50 mg HS PO ; Start 04/30/18 at 21:00 ; Stop 04/30/18 at 21:00; Status DC Acetaminophen (Tylenol) 650 mg PRN Q6HRS PRN PO PAIN / TEMP; Start 04/29/18 at 23:45 Gabapentin (Neurontin) 100 mg QID PO ; Start 04/30/18 at 09:00; Stop 04/30/18 at 09:00; Status DC Lactulose (Lactulose) 20 gm TID PO Last administered on 05/13/18at 20:33; Start 04/30/18 at 09:00 Oxybutynin Chloride (Ditropan) 2.5 mg BID PO Last administered on 05/14/18at 19: 50; Start 04/30/18 at 09:00 Potassium Chloride (Klor-Con) 20 meq DAILY PO Last administered on 05/14/18at 08 :38; Start 04/30/18 at 09:00 Tamsulosin HCl (Flomax) 0.8 mg DAILY PO Last administered on 05/14/18at 08:39; Start 04/30/18 at 09:00 Non-Formulary Medication (Amlodipine Besylate (Norvasc)) 10 mg DAILY PO ; Start 04/30/18 at 09:00; Stop 04/30/18 at 09:00; Status DC Non-Formulary Medication (Baclofen ) 10 mg QID PO ; Start 04/30/18 at 09:00; Stop 04/30/18 at 09:00; Status DC Non-Formulary Medication (Bisacodyl ) 10 mg PRN DAILY PRN RC CONSTIPATION; Start 04/29/18 at 23:45; Stop 04/30/18 at 01:39; Status DC Non-Formulary Medication (Gabapentin ) 800 mg QID PO ; Start 04/30/18 at 09:00; Stop 04/30/18 at 09:00; Status DC Non-Formulary Medication (Levothyroxine Sodium ) 50 mcg DAILYAC PO ; Start 04/30 at 07:30; Stop 04/30/18 at 07:30; Status DC Non-Formulary Medication (Multivitamin/ Iron/Folic Acid (Multivitamin with Iron Tablet)) 1 tab DAILY PO ; Start 04/30/18 at 09:00; Stop 04/30/18 at 09:00; Status DC Multi-Ingredient Ointment (Analgesic [place]) 1 jing PRN QID PRN TP MUSCLE PAIN; Start 04/29/18 at 23:45 Al Hydroxide/Mg Hydroxide (Mylanta Plus Xs) 15 ml PRN AFTMEALHC PRN PO DYSPEPSIA; Start 04/29/18 at 23:45 Magnesium Hydroxide (Milk Of Magnesia) 2,400 mg PRN QHS PRN PO CONSTIPATION; Start 04/29/18 at 23:45 Nicotine (Nicoderm Cq 14mg) 1 patch DAILY TD Last administered on 05/11/18at 09: 22; Start 04/30/18 at 09:00; Stop 05/12/18 at 11:26; Status DC Gabapentin (Neurontin) 100 mg QID PO Last administered on 05/14/18at 19:49; Start 04/30/18 at 00:30 Non-Formulary Medication (Baclofen ) 10 mg QID PO ; Start 04/30/18 at 00:00; Stop 04/30/18 at 01:39; Status DC Non-Formulary Medication (Buspirone Hcl ) 10 mg TID PO ; Start 04/30/18 at 00:00 ; Stop 04/30/18 at 01:39; Status DC Non-Formulary Medication (Divalproex Sodium (Depakote Er)) 1,000 mg HS PO ; Start 04/30/18 at 00:00; Stop 04/30/18 at 01:39; Status DC Non-Formulary Medication (Gabapentin ) 800 mg QID PO ; Start 04/30/18 at 00:00; Stop 04/30/18 at 01:39; Status DC Non-Formulary Medication (Mirtazapine (Remeron)) 7.5 mg HS PO ; Start 04/30/18 at 00:00; Stop 04/30/18 at 01:39; Status DC Non-Formulary Medication (Olanzapine ) 5 mg HS PO ; Start 04/30/18 at 00:00; Stop 04/30/18 at 01:39; Status DC Non-Formulary Medication (Trazodone Hcl ) 50 mg HS PO ; Start 04/30/18 at 00:00 ; Stop 04/30/18 at 01:39; Status DC Bisacodyl (Dulcolax Supp) 10 mg PRN DAILY PRN AL CONSTIPATION; Start 04/30/18 at 01:45 Multivitamins/ Calcium (Thera-M Plus) 1 tab DAILY PO Last administered on at 08:39; Start 04/30/18 at 09:00 Amlodipine Besylate (Norvasc) 10 mg DAILY PO Last administered on 05/14/18at 08: 39; Start 04/30/18 at 09:00 Levothyroxine Sodium (Synthroid) 50 mcg DAILY07 PO Last administered on 05:52; Start 04/30/18 at 07:00; Stop 04/30/18 at 15:49; Status DC Gabapentin (Neurontin) 800 mg QID PO Last administered on 05/14/18 19:50; Start 04/30/18 at 09:00 Baclofen (Lioresal) 10 mg QID PO Last administered on 05/14/18 19:49; Start at 09:00 Mirtazapine (Remeron) 7.5 mg QHS PO Last administered on 05/14/18 19:49; Start 04/30/18 at 21:00 Olanzapine (ZyPREXA) 5 mg HS PO Last administered on 04/30/18 20:21; Start at 21:00; Stop 05/01/18 at 18:33; Status DC Trazodone HCl (Desyrel) 50 mg QHS PO Last administered on 05/14/18 19:49; Start 04/30/18 at 21:00 Duloxetine HCl (Cymbalta) 60 mg DAILY PO Last administered on 05/14/18 08:39; Start 04/30/18 at 09:00 Divalproex Sodium (Depakote Er) 1,000 mg QHS PO Last administered on 04/30/18 20:21; Start 04/30/18 at 21:00; Stop 05/01/18 at 18:33; Status DC Buspirone HCl (Buspar) 10 mg TID PO Last administered on 05/14/18 19:49; Start 04/30/18 at 09:00 Levothyroxine Sodium (Synthroid) 50 mcg DAILY06 PO Last administered on 05:54; Start 05/01/18 at 06:00 Divalproex Sodium (Depakote Er) 1,500 mg QHS PO Last administered on 05/14/18 19:49; Start 05/01/18 at 21:00 Risperidone (RisperDAL) 1 mg QHS PO Last administered on 05/03/18 21:23; Start 05/01/18 at 21:00; Stop 05/04/18 at 17:21; Status DC Risperidone (RisperDAL) 1 mg QHS PO Last administered on 05/14/18at 19:49; Start 05/04/18 at 21:00 Risperidone (RisperDAL) 0.25 mg QHS PO Last administered on 05/04/18at 20:07; Start 05/04/18 at 21:00; Stop 05/05/18 at 17:39; Status DC Olanzapine (ZyPREXA ZYDIS) 2.5 mg PRN Q2HR PRN PO PSYCHOSIS; Start 05/04/18 at 23:00 Risperidone (RisperDAL) 0.5 mg QHS PO Last administered on 05/14/18at 19:49; Start 05/05/18 at 21:00 Trazodone HCl (Desyrel) 50 mg PRN QHS PRN PO Insomnia; Start 05/06/18 at 22:30 Nicotine (Nicoderm Cq 7mg) 1 patch DAILY TD ; Start 05/13/18 at 09:00 Active Scripts Active Reported Buspirone Hcl 10 Mg Tablet 10 Mg PO TID Baclofen 10 Mg Tablet 10 Mg PO QID Gabapentin 100 Mg Capsule 100 Mg PO QID Gabapentin 800 Mg Tablet 800 Mg PO QID Levothyroxine Sodium 50 Mcg Tablet 50 Mcg PO DAILYAC Klonopin (Clonazepam) 0.5 Mg Tablet 0.5 Mg PO BID92 Lactulose 20 Gm/30 Ml Solution 30 Ml PO TID Norvasc (Amlodipine Besylate) 10 Mg Tablet 10 Mg PO DAILY Oxybutynin Chloride 5 Mg Tablet 2.5 Mg PO BID Depakote Er (Divalproex Sodium) 500 Mg Tab.er.24h 1,000 Mg PO HS Klor-Con M20 (Potassium Chloride) 20 Meq Tab.er.prt 20 Meq PO DAILY Cymbalta (Duloxetine Hcl) 60 Mg Capsule.dr 60 Mg PO DAILY Multivitamin with Iron Tablet (Multivitamin/Iron/Folic Acid) 1 Each Tablet 1 Tab PO DAILY Flomax (Tamsulosin Hcl) 0.4 Mg Cap.er.24h 0.8 Mg PO DAILY Trazodone Hcl 50 Mg Tablet 50 Mg PO HS Olanzapine 5 Mg Tablet 5 Mg PO HS Remeron (Mirtazapine) 15 Mg Tablet 7.5 Mg PO HS Bisacodyl 10 Mg Supp.rect 10 Mg RC PRN DAILY PRN Tylenol (Acetaminophen) 325 Mg Tablet 650 Mg PO PRN Q6HRS PRN I have reviewed the current psychotropics carefully including drug interactions. Risk benefit ratio favors no change other than as noted in my dictated progress note. Diagnosis: Problems: (1) Adult general medical examination (2) Anxiety disorder (3) Impulse control disorder (4) Schizophrenia, paranoid, chronic with acute exacerbation CATHY EMERY MD May 14, 2018 20:20
--- NOTE | 2018-05-15 04:30 | PN ---
DATE: 05/13/2018 This is a late entry for 05/13/2018 covers elements not covered in my initial note. SUBJECTIVE: I met with the patient in the evening and staffed at a treatment team meeting with the entire team in the morning. The patient slept 5-3/4 hours previous night. He has been coming out more for activities, less isolative, less psychotic. REVIEW OF SYSTEMS: Ambulation impaired with walker. No CV, , pulmonary, eye, ENT system symptoms on review. Reliability varies. MENTAL STATUS EXAM: I met with him at length in his room in the evening, alert, oriented. Speech coherent, abstraction fair, computation somewhat impaired, language function intact. Mood and affect showing improvement, less psychotic. LABORATORY DATA: Reviewed. IMPRESSION: Unchanged from initial note. PLAN: No change from initial note. MAN Ty EMERY MD DR: SARINA/nilda JOB#: [id number] / [id number]
[2018-05-15] MEDS: LEVOTHYROXINE 50 MCG TABLET PO SCH (05:30)
[2018-05-15 05:57] VITALS: BP 100/65
[2018-05-15] MEDS: NICOTINE 7MG PATCH. TD SCH (09:00)
[2018-05-15] MEDS: amLODIPine BESYLATE 10 MG TABLET PO SCH (09:00)
[2018-05-15] MEDS: busPIRone 10 MG TABLET. PO SCH ×3 (09:17→20:12)
[2018-05-15] MEDS: TAMSULOSIN 0.4 MG CAP.ER.24H. PO SCH (09:17)
[2018-05-15] MEDS: DULoxetine HCL 60 MG CAPSULE.DR PO SCH (09:17)
[2018-05-15] MEDS: OXYBUTYNIN CHLORIDE 5 MG TABLET PO SCH ×2 (09:17→20:12)
[2018-05-15] MEDS: clonazePAM 0.5 MG TABLET PO SCH ×2 (09:19→13:43)
[2018-05-15] MEDS: POTASSIUM CHLORIDE 20 MEQ TABLET.ER. PO SCH (09:36)
[2018-05-15] MEDS: BACLOFEN 10 MG TABLET PO SCH ×4 (09:36→20:12)
[2018-05-15] MEDS: LACTULOSE 20 GM/30 ML SOLUTION. PO SCH ×3 (09:36→20:13)
[2018-05-15] MEDS: GABAPENTIN 100 MG CAPSULE. PO SCH ×4 (09:37→20:12)
[2018-05-15] MEDS: GABAPENTIN 400 MG CAPSULE. PO SCH ×4 (09:37→20:12)
[2018-05-15] MEDS: MULTIVITAMIN with MINERAL TABLET. PO SCH (09:37)
[2018-05-15 15:51] VITALS: BP 135/83
[2018-05-15] MEDS: risperiDONE 1 MG TABLET. PO SCH (20:12)
[2018-05-15] MEDS: risperiDONE 0.5 MG TABLET. PO SCH (20:12)
[2018-05-15] MEDS: MIRTAZAPINE 7.5 MG TABLET. PO SCH (20:12)
[2018-05-15] MEDS: traZODone 50 MG TABLET. PO SCH (20:12)
[2018-05-15] MEDS: DIVALPROEX ER 500 MG TAB.ER.24H PO SCH (20:13)
[2018-05-16] MEDS: LEVOTHYROXINE 50 MCG TABLET PO SCH (05:16)
[2018-05-16 06:34] VITALS: BP 118/76
[2018-05-16] MEDS: busPIRone 10 MG TABLET. PO SCH ×3 (07:46→20:22)
[2018-05-16] MEDS: DULoxetine HCL 60 MG CAPSULE.DR PO SCH (07:48)
[2018-05-16] MEDS: TAMSULOSIN 0.4 MG CAP.ER.24H. PO SCH (07:49)
[2018-05-16] MEDS: OXYBUTYNIN CHLORIDE 5 MG TABLET PO SCH ×2 (07:49→20:23)
[2018-05-16] MEDS: clonazePAM 0.5 MG TABLET PO SCH ×2 (07:49→13:45)
[2018-05-16] MEDS: POTASSIUM CHLORIDE 20 MEQ TABLET.ER. PO SCH (07:50)
[2018-05-16] MEDS: LACTULOSE 20 GM/30 ML SOLUTION. PO SCH ×3 (07:52→20:23)
[2018-05-16] MEDS: GABAPENTIN 100 MG CAPSULE. PO SCH ×4 (07:52→20:23)
[2018-05-16] MEDS: GABAPENTIN 400 MG CAPSULE. PO SCH ×4 (07:52→20:23)
[2018-05-16] MEDS: BACLOFEN 10 MG TABLET PO SCH ×4 (07:52→20:22)
[2018-05-16] MEDS: amLODIPine BESYLATE 10 MG TABLET PO SCH (07:53)
[2018-05-16] MEDS: NICOTINE 7MG PATCH. TD SCH (07:54)
[2018-05-16] MEDS: MULTIVITAMIN with MINERAL TABLET. PO SCH (07:55)
[2018-05-16 15:25] VITALS: BP 119/81
[2018-05-16] MEDS: MIRTAZAPINE 7.5 MG TABLET. PO SCH (20:22)
[2018-05-16] MEDS: risperiDONE 0.5 MG TABLET. PO SCH (20:22)
[2018-05-16] MEDS: risperiDONE 1 MG TABLET. PO SCH (20:22)
[2018-05-16] MEDS: traZODone 50 MG TABLET. PO SCH (20:22)
[2018-05-16] MEDS: DIVALPROEX ER 500 MG TAB.ER.24H PO SCH (20:23)
--- NOTE | 2018-05-16 20:28 | PDOC ---
Exam Note: Nguyễn Note: Late entry for date of service May. Please also refer to the separate dictated note~for this date of service dictated separately.~Patient seen individually. Discussed the patient with Nursing staff reviewed the chart.~ Reviewed interim history and current functioning. Reviewed vital signs,~Labs/ Radiology~and current medications noted below. Continue current treatment with the changes noted in the dictated addendum note Assessment: Vital Signs: VS - Last 72 Hours, by Label Date Time Temp Pulse Resp B/P (MAP) Pulse Ox O2 Delivery O2 Flow Rate FiO2 05/16/18 15:25 97.7 96 18 119/81 (94) 95 05/16/18 07:53 71 118/76 05/16/18 06:34 98.2 71 18 118/76 (90) 98 Room Air 05/15/18 15:51 98.0 79 20 135/83 (100) 96 High Flow Nasal Cannula 05/15/18 05:57 97.2 72 18 100/65 (77) 95 Room Air 05/14/18 16:21 98.4 78 17 118/79 (92) 97 Room Air 05/14/18 08:39 72 112/76 05/14/18 05:53 97.9 72 22 112/76 (88) 95 Room Air Vital Signs Date Time Temp Pulse Resp B/P (MAP) Pulse Ox O2 Delivery O2 Flow Rate FiO2 05/16/18 15:25 97.7 96 18 119/81 (94) 95 05/16/18 06:34 Room Air I&O Intake and Output 05/16/18 06:59 Intake Total 1440 ml Balance 1440 ml Intake Oral 1440 ml Current Medications: Meds: Current Medications Clonazepam (KlonoPIN) 0.5 mg BID92 PO Last administered on 05/16/18at 13:45; Start 04/30/18 at 09:00 Non-Formulary Medication (Buspirone Hcl ) 10 mg TID PO ; Start 04/30/18 at 09:00 ; Stop 04/30/18 at 09:00; Status DC Non-Formulary Medication (Divalproex Sodium (Depakote Er)) 1,000 mg HS PO ; Start 04/30/18 at 21:00; Stop 04/30/18 at 21:00; Status DC Non-Formulary Medication (Duloxetine Hcl (Cymbalta)) 60 mg DAILY PO ; Start at 09:00; Stop 04/30/18 at 09:00; Status DC Non-Formulary Medication (Mirtazapine (Remeron)) 7.5 mg HS PO ; Start 04/30/18 at 21:00; Stop 04/30/18 at 21:00; Status DC Non-Formulary Medication (Olanzapine ) 5 mg HS PO ; Start 04/30/18 at 21:00; Stop 04/30/18 at 21:00; Status DC Non-Formulary Medication (Trazodone Hcl ) 50 mg HS PO ; Start 04/30/18 at 21:00 ; Stop 04/30/18 at 21:00; Status DC Acetaminophen (Tylenol) 650 mg PRN Q6HRS PRN PO PAIN / TEMP; Start 04/29/18 at 23:45 Gabapentin (Neurontin) 100 mg QID PO ; Start 04/30/18 at 09:00; Stop 04/30/18 at 09:00; Status DC Lactulose (Lactulose) 20 gm TID PO Last administered on 05/13/18at 20:33; Start 04/30/18 at 09:00 Oxybutynin Chloride (Ditropan) 2.5 mg BID PO Last administered on 05/16/18at 20: 23; Start 04/30/18 at 09:00 Potassium Chloride (Klor-Con) 20 meq DAILY PO Last administered on 05/16/18at 07 :50; Start 04/30/18 at 09:00 Tamsulosin HCl (Flomax) 0.8 mg DAILY PO Last administered on 05/16/18at 07:49; Start 04/30/18 at 09:00 Non-Formulary Medication (Amlodipine Besylate (Norvasc)) 10 mg DAILY PO ; Start 04/30/18 at 09:00; Stop 04/30/18 at 09:00; Status DC Non-Formulary Medication (Baclofen ) 10 mg QID PO ; Start 04/30/18 at 09:00; Stop 04/30/18 at 09:00; Status DC Non-Formulary Medication (Bisacodyl ) 10 mg PRN DAILY PRN RC CONSTIPATION; Start 04/29/18 at 23:45; Stop 04/30/18 at 01:39; Status DC Non-Formulary Medication (Gabapentin ) 800 mg QID PO ; Start 04/30/18 at 09:00; Stop 04/30/18 at 09:00; Status DC Non-Formulary Medication (Levothyroxine Sodium ) 50 mcg DAILYAC PO ; Start 04/30 at 07:30; Stop 04/30/18 at 07:30; Status DC Non-Formulary Medication (Multivitamin/ Iron/Folic Acid (Multivitamin with Iron Tablet)) 1 tab DAILY PO ; Start 04/30/18 at 09:00; Stop 04/30/18 at 09:00; Status DC Multi-Ingredient Ointment (Analgesic [place]) 1 jing PRN QID PRN TP MUSCLE PAIN; Start 04/29/18 at 23:45 Al Hydroxide/Mg Hydroxide (Mylanta Plus Xs) 15 ml PRN AFTMEALHC PRN PO DYSPEPSIA; Start 04/29/18 at 23:45 Magnesium Hydroxide (Milk Of Magnesia) 2,400 mg PRN QHS PRN PO CONSTIPATION; Start 04/29/18 at 23:45 Nicotine (Nicoderm Cq 14mg) 1 patch DAILY TD Last administered on 05/11/18at 09: 22; Start 04/30/18 at 09:00; Stop 05/12/18 at 11:26; Status DC Gabapentin (Neurontin) 100 mg QID PO Last administered on 05/16/18at 20:23; Start 04/30/18 at 00:30 Non-Formulary Medication (Baclofen ) 10 mg QID PO ; Start 04/30/18 at 00:00; Stop 04/30/18 at 01:39; Status DC Non-Formulary Medication (Buspirone Hcl ) 10 mg TID PO ; Start 04/30/18 at 00:00 ; Stop 04/30/18 at 01:39; Status DC Non-Formulary Medication (Divalproex Sodium (Depakote Er)) 1,000 mg HS PO ; Start 04/30/18 at 00:00; Stop 04/30/18 at 01:39; Status DC Non-Formulary Medication (Gabapentin ) 800 mg QID PO ; Start 04/30/18 at 00:00; Stop 04/30/18 at 01:39; Status DC Non-Formulary Medication (Mirtazapine (Remeron)) 7.5 mg HS PO ; Start 04/30/18 at 00:00; Stop 04/30/18 at 01:39; Status DC Non-Formulary Medication (Olanzapine ) 5 mg HS PO ; Start 04/30/18 at 00:00; Stop 04/30/18 at 01:39; Status DC Non-Formulary Medication (Trazodone Hcl ) 50 mg HS PO ; Start 04/30/18 at 00:00 ; Stop 04/30/18 at 01:39; Status DC Bisacodyl (Dulcolax Supp) 10 mg PRN DAILY PRN ME CONSTIPATION; Start 04/30/18 at 01:45 Multivitamins/ Calcium (Thera-M Plus) 1 tab DAILY PO Last administered on 07:55; Start 04/30/18 at 09:00 Amlodipine Besylate (Norvasc) 10 mg DAILY PO Last administered on 05/16/18at 07: 53; Start 04/30/18 at 09:00 Levothyroxine Sodium (Synthroid) 50 mcg DAILY07 PO Last administered on at 05:52; Start 04/30/18 at 07:00; Stop 04/30/18 at 15:49; Status DC Gabapentin (Neurontin) 800 mg QID PO Last administered on 05/16/18 20:23; Start 04/30/18 at 09:00 Baclofen (Lioresal) 10 mg QID PO Last administered on 05/16/18at 20:22; Start at 09:00 Mirtazapine (Remeron) 7.5 mg QHS PO Last administered on 05/16/18 20:22; Start 04/30/18 at 21:00 Olanzapine (ZyPREXA) 5 mg HS PO Last administered on 04/30/18at 20:21; Start at 21:00; Stop 05/01/18 at 18:33; Status DC Trazodone HCl (Desyrel) 50 mg QHS PO Last administered on 05/16/18at 20:22; Start 04/30/18 at 21:00 Duloxetine HCl (Cymbalta) 60 mg DAILY PO Last administered on 05/16/18at 07:48; Start 04/30/18 at 09:00 Divalproex Sodium (Depakote Er) 1,000 mg QHS PO Last administered on 04/30/18 20:21; Start 04/30/18 at 21:00; Stop 05/01/18 at 18:33; Status DC Buspirone HCl (Buspar) 10 mg TID PO Last administered on 05/16/18 20:22; Start 04/30/18 at 09:00 Levothyroxine Sodium (Synthroid) 50 mcg DAILY06 PO Last administered on at 05:16; Start 05/01/18 at 06:00 Divalproex Sodium (Depakote Er) 1,500 mg QHS PO Last administered on 05/16/18 20:23; Start 05/01/18 at 21:00 Risperidone (RisperDAL) 1 mg QHS PO Last administered on 05/03/18 21:23; Start 05/01/18 at 21:00; Stop 05/04/18 at 17:21; Status DC Risperidone (RisperDAL) 1 mg QHS PO Last administered on 05/16/18 20:22; Start 05/04/18 at 21:00 Risperidone (RisperDAL) 0.25 mg QHS PO Last administered on 05/04/18at 20:07; Start 05/04/18 at 21:00; Stop 05/05/18 at 17:39; Status DC Olanzapine (ZyPREXA ZYDIS) 2.5 mg PRN Q2HR PRN PO PSYCHOSIS; Start 05/04/18 at 23:00 Risperidone (RisperDAL) 0.5 mg QHS PO Last administered on 05/16/18at 20:22; Start 05/05/18 at 21:00 Trazodone HCl (Desyrel) 50 mg PRN QHS PRN PO Insomnia; Start 05/06/18 at 22:30 Nicotine (Nicoderm Cq 7mg) 1 patch DAILY TD ; Start 05/13/18 at 09:00 Active Scripts Active Reported Buspirone Hcl 10 Mg Tablet 10 Mg PO TID Baclofen 10 Mg Tablet 10 Mg PO QID Gabapentin 100 Mg Capsule 100 Mg PO QID Gabapentin 800 Mg Tablet 800 Mg PO QID Levothyroxine Sodium 50 Mcg Tablet 50 Mcg PO DAILYAC Klonopin (Clonazepam) 0.5 Mg Tablet 0.5 Mg PO BID92 Lactulose 20 Gm/30 Ml Solution 30 Ml PO TID Norvasc (Amlodipine Besylate) 10 Mg Tablet 10 Mg PO DAILY Oxybutynin Chloride 5 Mg Tablet 2.5 Mg PO BID Depakote Er (Divalproex Sodium) 500 Mg Tab.er.24h 1,000 Mg PO HS Klor-Con M20 (Potassium Chloride) 20 Meq Tab.er.prt 20 Meq PO DAILY Cymbalta (Duloxetine Hcl) 60 Mg Capsule.dr 60 Mg PO DAILY Multivitamin with Iron Tablet (Multivitamin/Iron/Folic Acid) 1 Each Tablet 1 Tab PO DAILY Flomax (Tamsulosin Hcl) 0.4 Mg Cap.er.24h 0.8 Mg PO DAILY Trazodone Hcl 50 Mg Tablet 50 Mg PO HS Olanzapine 5 Mg Tablet 5 Mg PO HS Remeron (Mirtazapine) 15 Mg Tablet 7.5 Mg PO HS Bisacodyl 10 Mg Supp.rect 10 Mg RC PRN DAILY PRN Tylenol (Acetaminophen) 325 Mg Tablet 650 Mg PO PRN Q6HRS PRN I have reviewed the current psychotropics carefully including drug interactions. Risk benefit ratio favors no change other than as noted in my dictated progress note. Diagnosis: Problems: (1) Adult general medical examination (2) Anxiety disorder (3) Impulse control disorder (4) Schizophrenia, paranoid, chronic with acute exacerbation CATHY EMERY MD May 16, 2018 20:28
--- NOTE | 2018-05-16 20:29 | PDOC ---
Exam Note: Nguyễn Note: Please also refer to the separate dictated note~for this date of service dictated separately.~Patient seen individually. Discussed the patient with Nursing staff reviewed the chart.~Reviewed interim history and current functioning. Reviewed vital signs,~Labs/ Radiology~and current medications noted below. Continue current treatment with the changes noted in the dictated addendum note Assessment: Vital Signs: Vital Signs Date Time Temp Pulse Resp B/P (MAP) Pulse Ox O2 Delivery O2 Flow Rate FiO2 05/16/18 15:25 97.7 96 18 119/81 (94) 95 05/16/18 06:34 Room Air I&O Intake and Output 05/16/18 06:59 Intake Total 1440 ml Balance 1440 ml Intake Oral 1440 ml Current Medications: Meds: Current Medications Clonazepam (KlonoPIN) 0.5 mg BID92 PO Last administered on 05/16/18at 13:45; Start 04/30/18 at 09:00 Non-Formulary Medication (Buspirone Hcl ) 10 mg TID PO ; Start 04/30/18 at 09:00 ; Stop 04/30/18 at 09:00; Status DC Non-Formulary Medication (Divalproex Sodium (Depakote Er)) 1,000 mg HS PO ; Start 04/30/18 at 21:00; Stop 04/30/18 at 21:00; Status DC Non-Formulary Medication (Duloxetine Hcl (Cymbalta)) 60 mg DAILY PO ; Start at 09:00; Stop 04/30/18 at 09:00; Status DC Non-Formulary Medication (Mirtazapine (Remeron)) 7.5 mg HS PO ; Start 04/30/18 at 21:00; Stop 04/30/18 at 21:00; Status DC Non-Formulary Medication (Olanzapine ) 5 mg HS PO ; Start 04/30/18 at 21:00; Stop 04/30/18 at 21:00; Status DC Non-Formulary Medication (Trazodone Hcl ) 50 mg HS PO ; Start 04/30/18 at 21:00 ; Stop 04/30/18 at 21:00; Status DC Acetaminophen (Tylenol) 650 mg PRN Q6HRS PRN PO PAIN / TEMP; Start 04/29/18 at 23:45 Gabapentin (Neurontin) 100 mg QID PO ; Start 04/30/18 at 09:00; Stop 04/30/18 at 09:00; Status DC Lactulose (Lactulose) 20 gm TID PO Last administered on 05/13/18at 20:33; Start 04/30/18 at 09:00 Oxybutynin Chloride (Ditropan) 2.5 mg BID PO Last administered on 05/16/18at 20: 23; Start 04/30/18 at 09:00 Potassium Chloride (Klor-Con) 20 meq DAILY PO Last administered on 05/16/18at 07 :50; Start 04/30/18 at 09:00 Tamsulosin HCl (Flomax) 0.8 mg DAILY PO Last administered on 05/16/18at 07:49; Start 04/30/18 at 09:00 Non-Formulary Medication (Amlodipine Besylate (Norvasc)) 10 mg DAILY PO ; Start 04/30/18 at 09:00; Stop 04/30/18 at 09:00; Status DC Non-Formulary Medication (Baclofen ) 10 mg QID PO ; Start 04/30/18 at 09:00; Stop 04/30/18 at 09:00; Status DC Non-Formulary Medication (Bisacodyl ) 10 mg PRN DAILY PRN RC CONSTIPATION; Start 04/29/18 at 23:45; Stop 04/30/18 at 01:39; Status DC Non-Formulary Medication (Gabapentin ) 800 mg QID PO ; Start 04/30/18 at 09:00; Stop 04/30/18 at 09:00; Status DC Non-Formulary Medication (Levothyroxine Sodium ) 50 mcg DAILYAC PO ; Start 04/30 at 07:30; Stop 04/30/18 at 07:30; Status DC Non-Formulary Medication (Multivitamin/ Iron/Folic Acid (Multivitamin with Iron Tablet)) 1 tab DAILY PO ; Start 04/30/18 at 09:00; Stop 04/30/18 at 09:00; Status DC Multi-Ingredient Ointment (Analgesic [place]) 1 jing PRN QID PRN TP MUSCLE PAIN; Start 04/29/18 at 23:45 Al Hydroxide/Mg Hydroxide (Mylanta Plus Xs) 15 ml PRN AFTMEALHC PRN PO DYSPEPSIA; Start 04/29/18 at 23:45 Magnesium Hydroxide (Milk Of Magnesia) 2,400 mg PRN QHS PRN PO CONSTIPATION; Start 04/29/18 at 23:45 Nicotine (Nicoderm Cq 14mg) 1 patch DAILY TD Last administered on 05/11/18at 09: 22; Start 04/30/18 at 09:00; Stop 05/12/18 at 11:26; Status DC Gabapentin (Neurontin) 100 mg QID PO Last administered on 05/16/18at 20:23; Start 04/30/18 at 00:30 Non-Formulary Medication (Baclofen ) 10 mg QID PO ; Start 04/30/18 at 00:00; Stop 04/30/18 at 01:39; Status DC Non-Formulary Medication (Buspirone Hcl ) 10 mg TID PO ; Start 04/30/18 at 00:00 ; Stop 04/30/18 at 01:39; Status DC Non-Formulary Medication (Divalproex Sodium (Depakote Er)) 1,000 mg HS PO ; Start 04/30/18 at 00:00; Stop 04/30/18 at 01:39; Status DC Non-Formulary Medication (Gabapentin ) 800 mg QID PO ; Start 04/30/18 at 00:00; Stop 04/30/18 at 01:39; Status DC Non-Formulary Medication (Mirtazapine (Remeron)) 7.5 mg HS PO ; Start 04/30/18 at 00:00; Stop 04/30/18 at 01:39; Status DC Non-Formulary Medication (Olanzapine ) 5 mg HS PO ; Start 04/30/18 at 00:00; Stop 04/30/18 at 01:39; Status DC Non-Formulary Medication (Trazodone Hcl ) 50 mg HS PO ; Start 04/30/18 at 00:00 ; Stop 04/30/18 at 01:39; Status DC Bisacodyl (Dulcolax Supp) 10 mg PRN DAILY PRN ID CONSTIPATION; Start 04/30/18 at 01:45 Multivitamins/ Calcium (Thera-M Plus) 1 tab DAILY PO Last administered on at 07:55; Start 04/30/18 at 09:00 Amlodipine Besylate (Norvasc) 10 mg DAILY PO Last administered on 05/16/18 07: 53; Start 04/30/18 at 09:00 Levothyroxine Sodium (Synthroid) 50 mcg DAILY07 PO Last administered on 05:52; Start 04/30/18 at 07:00; Stop 04/30/18 at 15:49; Status DC Gabapentin (Neurontin) 800 mg QID PO Last administered on 05/16/18 20:23; Start 04/30/18 at 09:00 Baclofen (Lioresal) 10 mg QID PO Last administered on 05/16/18 20:22; Start at 09:00 Mirtazapine (Remeron) 7.5 mg QHS PO Last administered on 05/16/18 20:22; Start 04/30/18 at 21:00 Olanzapine (ZyPREXA) 5 mg HS PO Last administered on 04/30/18 20:21; Start at 21:00; Stop 05/01/18 at 18:33; Status DC Trazodone HCl (Desyrel) 50 mg QHS PO Last administered on 05/16/18 20:22; Start 04/30/18 at 21:00 Duloxetine HCl (Cymbalta) 60 mg DAILY PO Last administered on 05/16/18 07:48; Start 04/30/18 at 09:00 Divalproex Sodium (Depakote Er) 1,000 mg QHS PO Last administered on 04/30/18 20:21; Start 04/30/18 at 21:00; Stop 05/01/18 at 18:33; Status DC Buspirone HCl (Buspar) 10 mg TID PO Last administered on 05/16/18 20:22; Start 04/30/18 at 09:00 Levothyroxine Sodium (Synthroid) 50 mcg DAILY06 PO Last administered on 05:16; Start 05/01/18 at 06:00 Divalproex Sodium (Depakote Er) 1,500 mg QHS PO Last administered on 05/16/18 20:23; Start 05/01/18 at 21:00 Risperidone (RisperDAL) 1 mg QHS PO Last administered on 05/03/18 21:23; Start 05/01/18 at 21:00; Stop 05/04/18 at 17:21; Status DC Risperidone (RisperDAL) 1 mg QHS PO Last administered on 05/16/18at 20:22; Start 05/04/18 at 21:00 Risperidone (RisperDAL) 0.25 mg QHS PO Last administered on 05/04/18at 20:07; Start 05/04/18 at 21:00; Stop 05/05/18 at 17:39; Status DC Olanzapine (ZyPREXA ZYDIS) 2.5 mg PRN Q2HR PRN PO PSYCHOSIS; Start 05/04/18 at 23:00 Risperidone (RisperDAL) 0.5 mg QHS PO Last administered on 05/16/18at 20:22; Start 05/05/18 at 21:00 Trazodone HCl (Desyrel) 50 mg PRN QHS PRN PO Insomnia; Start 05/06/18 at 22:30 Nicotine (Nicoderm Cq 7mg) 1 patch DAILY TD ; Start 05/13/18 at 09:00 Active Scripts Active Reported Buspirone Hcl 10 Mg Tablet 10 Mg PO TID Baclofen 10 Mg Tablet 10 Mg PO QID Gabapentin 100 Mg Capsule 100 Mg PO QID Gabapentin 800 Mg Tablet 800 Mg PO QID Levothyroxine Sodium 50 Mcg Tablet 50 Mcg PO DAILYAC Klonopin (Clonazepam) 0.5 Mg Tablet 0.5 Mg PO BID92 Lactulose 20 Gm/30 Ml Solution 30 Ml PO TID Norvasc (Amlodipine Besylate) 10 Mg Tablet 10 Mg PO DAILY Oxybutynin Chloride 5 Mg Tablet 2.5 Mg PO BID Depakote Er (Divalproex Sodium) 500 Mg Tab.er.24h 1,000 Mg PO HS Klor-Con M20 (Potassium Chloride) 20 Meq Tab.er.prt 20 Meq PO DAILY Cymbalta (Duloxetine Hcl) 60 Mg Capsule.dr 60 Mg PO DAILY Multivitamin with Iron Tablet (Multivitamin/Iron/Folic Acid) 1 Each Tablet 1 Tab PO DAILY Flomax (Tamsulosin Hcl) 0.4 Mg Cap.er.24h 0.8 Mg PO DAILY Trazodone Hcl 50 Mg Tablet 50 Mg PO HS Olanzapine 5 Mg Tablet 5 Mg PO HS Remeron (Mirtazapine) 15 Mg Tablet 7.5 Mg PO HS Bisacodyl 10 Mg Supp.rect 10 Mg RC PRN DAILY PRN Tylenol (Acetaminophen) 325 Mg Tablet 650 Mg PO PRN Q6HRS PRN I have reviewed the current psychotropics carefully including drug interactions. Risk benefit ratio favors no change other than as noted in my dictated progress note. Diagnosis: Problems: (1) Adult general medical examination (2) Anxiety disorder (3) Impulse control disorder (4) Schizophrenia, paranoid, chronic with acute exacerbation CATHY EMERY MD May 16, 2018 20:29
--- NOTE | 2018-05-17 01:09 | PN ---
DATE: 05/14/2018 This is a late entry for 05/14/2018 and covers elements not covered in my initial note. SUBJECTIVE: I met with the patient in the evening. The patient slept 4 hours previous night and nursing staff noted that at night, he seemed to be acting a little odd, possibly psychotic, but when I questioned him, he denied it. He slept 4 hours, refused nicotine patch. REVIEW OF SYSTEMS: Ambulation impaired with walker. No CV, , pulmonary, eye system symptoms on review. MENTAL STATUS EXAM: Reasonably oriented. Speech coherent, has some latency. Abstraction fair, computation impaired, language function intact, attention span short. Mood and affect somewhat withdrawn. LABORATORY DATA: Reviewed. IMPRESSION: Unchanged from initial note. PLAN: No change from initial note. MAN Ty EMERY MD DR: SARINA/nilda JOB#: [id number] / [id number]
[2018-05-17] MEDS: LEVOTHYROXINE 50 MCG TABLET PO SCH (05:43)
[2018-05-17 06:04] VITALS: BP 112/77
[2018-05-17] MEDS: NICOTINE 7MG PATCH. TD SCH (09:00)
[2018-05-17] MEDS: amLODIPine BESYLATE 10 MG TABLET PO SCH (09:00)
[2018-05-17] MEDS: LACTULOSE 20 GM/30 ML SOLUTION. PO SCH ×3 (09:00→19:35)
[2018-05-17] MEDS: clonazePAM 0.5 MG TABLET PO SCH ×2 (09:11→13:13)
[2018-05-17] MEDS: OXYBUTYNIN CHLORIDE 5 MG TABLET PO SCH ×2 (09:11→19:32)
[2018-05-17] MEDS: TAMSULOSIN 0.4 MG CAP.ER.24H. PO SCH (09:11)
[2018-05-17] MEDS: busPIRone 10 MG TABLET. PO SCH ×3 (09:11→19:33)
[2018-05-17] MEDS: DULoxetine HCL 60 MG CAPSULE.DR PO SCH (09:11)
[2018-05-17] MEDS: GABAPENTIN 100 MG CAPSULE. PO SCH ×4 (09:12→19:33)
[2018-05-17] MEDS: POTASSIUM CHLORIDE 20 MEQ TABLET.ER. PO SCH (09:12)
[2018-05-17] MEDS: GABAPENTIN 400 MG CAPSULE. PO SCH ×4 (09:12→19:32)
[2018-05-17] MEDS: BACLOFEN 10 MG TABLET PO SCH ×4 (09:12→19:33)
[2018-05-17] MEDS: MULTIVITAMIN with MINERAL TABLET. PO SCH (09:12)
--- NOTE | 2018-05-17 14:32 | PN ---
DATE: 05/15/2018 PSYCHIATRIC PROGRESS NOTE This late entry 05/15/2018 covers elements not covered in my initial note. SUBJECTIVE: Met with the patient in the evening in his room. He slept 4 hours previous night, ambulates with a walker. REVIEW OF SYSTEMS: No CV, , pulmonary, eye system symptoms on review. MENTAL STATUS EXAM: Reasonably oriented. Speech is coherent, abstraction fair, computation impaired, language function intact. Mood and affect is improved. He was talking at length about living in a correction and supposed to going back to [place] amongst other things. PLAN: Continue current psychotropics. Adjust as indicated. MAN Ty EMERY MD DR: SARINA/nilda JOB#: [id number] / [id number]
[2018-05-17 15:56] VITALS: BP 118/72
--- NOTE | 2018-05-17 16:24 | PN ---
DATE: 05/16/2018 PSYCHIATRIC PROGRESS NOTE This note covers elements, not covered in my initial note 05/16/2018. SUBJECTIVE: I met with the patient at length in his room. The patient slept 7-3/4 hours previous evening. REVIEW OF SYSTEMS: No CV, , pulmonary, eye system symptoms on review. Gait unsteady with walker. MENTAL STATUS EXAM: Reasonably oriented. Speech coherent, abstraction fair, computation impaired, language function intact. Mood and affect still withdrawn. He talked at length about wanting to be in a halfway or a different nursing facility or defer to social service staff. IMPRESSION: Unchanged from initial note. PLAN: No change from initial note. MAN Ty EMERY MD DR: SARINA/nilda JOB#: [id number] / [id number]
[2018-05-17] MEDS: traZODone 50 MG TABLET. PO SCH (19:33)
[2018-05-17] MEDS: DIVALPROEX ER 500 MG TAB.ER.24H PO SCH (19:33)
[2018-05-17] MEDS: risperiDONE 1 MG TABLET. PO SCH (19:33)
[2018-05-17] MEDS: MIRTAZAPINE 7.5 MG TABLET. PO SCH (19:33)
[2018-05-17] MEDS: risperiDONE 0.25 MG TABLET. PO SCH (19:36)
--- NOTE | 2018-05-17 20:55 | PDOC ---
Exam Note: Nguyễn Note: Please also refer to the separate dictated note~for this date of service dictated separately.~Patient seen individually. Discussed the patient with Nursing staff reviewed the chart.~Reviewed interim history and current functioning. Reviewed vital signs,~Labs/ Radiology~and current medications noted below. Continue current treatment with the changes noted in the dictated addendum note Assessment: Vital Signs: Vital Signs Date Time Temp Pulse Resp B/P (MAP) Pulse Ox O2 Delivery O2 Flow Rate FiO2 05/17/18 15:56 97.8 85 20 118/72 (87) 96 05/17/18 06:04 Room Air I&O Intake and Output 05/17/18 06:59 Intake Total 1360 ml Balance 1360 ml Intake Oral 1360 ml Current Medications: Meds: Current Medications Clonazepam (KlonoPIN) 0.5 mg BID92 PO Last administered on 05/17/18at 13:13; Start 04/30/18 at 09:00 Non-Formulary Medication (Buspirone Hcl ) 10 mg TID PO ; Start 04/30/18 at 09:00 ; Stop 04/30/18 at 09:00; Status DC Non-Formulary Medication (Divalproex Sodium (Depakote Er)) 1,000 mg HS PO ; Start 04/30/18 at 21:00; Stop 04/30/18 at 21:00; Status DC Non-Formulary Medication (Duloxetine Hcl (Cymbalta)) 60 mg DAILY PO ; Start at 09:00; Stop 04/30/18 at 09:00; Status DC Non-Formulary Medication (Mirtazapine (Remeron)) 7.5 mg HS PO ; Start 04/30/18 at 21:00; Stop 04/30/18 at 21:00; Status DC Non-Formulary Medication (Olanzapine ) 5 mg HS PO ; Start 04/30/18 at 21:00; Stop 04/30/18 at 21:00; Status DC Non-Formulary Medication (Trazodone Hcl ) 50 mg HS PO ; Start 04/30/18 at 21:00 ; Stop 04/30/18 at 21:00; Status DC Acetaminophen (Tylenol) 650 mg PRN Q6HRS PRN PO PAIN / TEMP; Start 04/29/18 at 23:45 Gabapentin (Neurontin) 100 mg QID PO ; Start 04/30/18 at 09:00; Stop 04/30/18 at 09:00; Status DC Lactulose (Lactulose) 20 gm TID PO Last administered on 05/17/18at 19:35; Start 04/30/18 at 09:00 Oxybutynin Chloride (Ditropan) 2.5 mg BID PO Last administered on 05/17/18at 19: 32; Start 04/30/18 at 09:00 Potassium Chloride (Klor-Con) 20 meq DAILY PO Last administered on 05/17/18at 09 :12; Start 04/30/18 at 09:00 Tamsulosin HCl (Flomax) 0.8 mg DAILY PO Last administered on 05/17/18at 09:11; Start 04/30/18 at 09:00 Non-Formulary Medication (Amlodipine Besylate (Norvasc)) 10 mg DAILY PO ; Start 04/30/18 at 09:00; Stop 04/30/18 at 09:00; Status DC Non-Formulary Medication (Baclofen ) 10 mg QID PO ; Start 04/30/18 at 09:00; Stop 04/30/18 at 09:00; Status DC Non-Formulary Medication (Bisacodyl ) 10 mg PRN DAILY PRN [place] CONSTIPATION; Start 04/29/18 at 23:45; Stop 04/30/18 at 01:39; Status DC Non-Formulary Medication (Gabapentin ) 800 mg QID PO ; Start 04/30/18 at 09:00; Stop 04/30/18 at 09:00; Status DC Non-Formulary Medication (Levothyroxine Sodium ) 50 mcg DAILYAC PO ; Start 04/30 at 07:30; Stop 04/30/18 at 07:30; Status DC Non-Formulary Medication (Multivitamin/ Iron/Folic Acid (Multivitamin with Iron Tablet)) 1 tab DAILY PO ; Start 04/30/18 at 09:00; Stop 04/30/18 at 09:00; Status DC Multi-Ingredient Ointment (Analgesic [place]) 1 jing PRN QID PRN TP MUSCLE PAIN; Start 04/29/18 at 23:45 Al Hydroxide/Mg Hydroxide (Mylanta Plus Xs) 15 ml PRN AFTMEALHC PRN PO DYSPEPSIA; Start 04/29/18 at 23:45 Magnesium Hydroxide (Milk Of Magnesia) 2,400 mg PRN QHS PRN PO CONSTIPATION; Start 04/29/18 at 23:45 Nicotine (Nicoderm Cq 14mg) 1 patch DAILY TD Last administered on 05/11/18at 09: 22; Start 04/30/18 at 09:00; Stop 05/12/18 at 11:26; Status DC Gabapentin (Neurontin) 100 mg QID PO Last administered on 05/17/18at 19:33; Start 04/30/18 at 00:30 Non-Formulary Medication (Baclofen ) 10 mg QID PO ; Start 04/30/18 at 00:00; Stop 04/30/18 at 01:39; Status DC Non-Formulary Medication (Buspirone Hcl ) 10 mg TID PO ; Start 04/30/18 at 00:00 ; Stop 04/30/18 at 01:39; Status DC Non-Formulary Medication (Divalproex Sodium (Depakote Er)) 1,000 mg HS PO ; Start 04/30/18 at 00:00; Stop 04/30/18 at 01:39; Status DC Non-Formulary Medication (Gabapentin ) 800 mg QID PO ; Start 04/30/18 at 00:00; Stop 04/30/18 at 01:39; Status DC Non-Formulary Medication (Mirtazapine (Remeron)) 7.5 mg HS PO ; Start 04/30/18 at 00:00; Stop 04/30/18 at 01:39; Status DC Non-Formulary Medication (Olanzapine ) 5 mg HS PO ; Start 04/30/18 at 00:00; Stop 04/30/18 at 01:39; Status DC Non-Formulary Medication (Trazodone Hcl ) 50 mg HS PO ; Start 04/30/18 at 00:00 ; Stop 04/30/18 at 01:39; Status DC Bisacodyl (Dulcolax Supp) 10 mg PRN DAILY PRN [place] CONSTIPATION; Start 04/30/18 at 01:45 Multivitamins/ Calcium (Thera-M Plus) 1 tab DAILY PO Last administered on at 09:12; Start 04/30/18 at 09:00 Amlodipine Besylate (Norvasc) 10 mg DAILY PO Last administered on 05/16/18 07: 53; Start 04/30/18 at 09:00 Levothyroxine Sodium (Synthroid) 50 mcg DAILY07 PO Last administered on 05:52; Start 04/30/18 at 07:00; Stop 04/30/18 at 15:49; Status DC Gabapentin (Neurontin) 800 mg QID PO Last administered on 05/17/18 19:32; Start 04/30/18 at 09:00 Baclofen (Lioresal) 10 mg QID PO Last administered on 05/17/18 19:33; Start at 09:00 Mirtazapine (Remeron) 7.5 mg QHS PO Last administered on 05/17/18 19:33; Start 04/30/18 at 21:00 Olanzapine (ZyPREXA) 5 mg HS PO Last administered on 04/30/18 20:21; Start at 21:00; Stop 05/01/18 at 18:33; Status DC Trazodone HCl (Desyrel) 50 mg QHS PO Last administered on 05/17/18 19:33; Start 04/30/18 at 21:00 Duloxetine HCl (Cymbalta) 60 mg DAILY PO Last administered on 05/17/18 09:11; Start 04/30/18 at 09:00 Divalproex Sodium (Depakote Er) 1,000 mg QHS PO Last administered on 04/30/18 20:21; Start 04/30/18 at 21:00; Stop 05/01/18 at 18:33; Status DC Buspirone HCl (Buspar) 10 mg TID PO Last administered on 05/17/18 19:33; Start 04/30/18 at 09:00 Levothyroxine Sodium (Synthroid) 50 mcg DAILY06 PO Last administered on 05:43; Start 05/01/18 at 06:00 Divalproex Sodium (Depakote Er) 1,500 mg QHS PO Last administered on 05/17/18 19:33; Start 05/01/18 at 21:00 Risperidone (RisperDAL) 1 mg QHS PO Last administered on 05/03/18 21:23; Start 05/01/18 at 21:00; Stop 05/04/18 at 17:21; Status DC Risperidone (RisperDAL) 1 mg QHS PO Last administered on 05/17/18at 19:33; Start 05/04/18 at 21:00 Risperidone (RisperDAL) 0.25 mg QHS PO Last administered on 05/04/18at 20:07; Start 05/04/18 at 21:00; Stop 05/05/18 at 17:39; Status DC Olanzapine (ZyPREXA ZYDIS) 2.5 mg PRN Q2HR PRN PO PSYCHOSIS; Start 05/04/18 at 23:00 Risperidone (RisperDAL) 0.5 mg QHS PO Last administered on 05/16/18at 20:22; Start 05/05/18 at 21:00; Stop 05/17/18 at 16:20; Status DC Trazodone HCl (Desyrel) 50 mg PRN QHS PRN PO Insomnia; Start 05/06/18 at 22:30 Nicotine (Nicoderm Cq 7mg) 1 patch DAILY TD ; Start 05/13/18 at 09:00 Risperidone (RisperDAL) 0.75 mg QHS PO Last administered on 05/17/18at 19:36; Start 05/17/18 at 21:00 Active Scripts Active Reported Buspirone Hcl 10 Mg Tablet 10 Mg PO TID Baclofen 10 Mg Tablet 10 Mg PO QID Gabapentin 100 Mg Capsule 100 Mg PO QID Gabapentin 800 Mg Tablet 800 Mg PO QID Levothyroxine Sodium 50 Mcg Tablet 50 Mcg PO DAILYAC Klonopin (Clonazepam) 0.5 Mg Tablet 0.5 Mg PO BID92 Lactulose 20 Gm/30 Ml Solution 30 Ml PO TID Norvasc (Amlodipine Besylate) 10 Mg Tablet 10 Mg PO DAILY Oxybutynin Chloride 5 Mg Tablet 2.5 Mg PO BID Depakote Er (Divalproex Sodium) 500 Mg Tab.er.24h 1,000 Mg PO HS Klor-Con M20 (Potassium Chloride) 20 Meq Tab.er.prt 20 Meq PO DAILY Cymbalta (Duloxetine Hcl) 60 Mg Capsule.dr 60 Mg PO DAILY Multivitamin with Iron Tablet (Multivitamin/Iron/Folic Acid) 1 Each Tablet 1 Tab PO DAILY Flomax (Tamsulosin Hcl) 0.4 Mg Cap.er.24h 0.8 Mg PO DAILY Trazodone Hcl 50 Mg Tablet 50 Mg PO HS Olanzapine 5 Mg Tablet 5 Mg PO HS Remeron (Mirtazapine) 15 Mg Tablet 7.5 Mg PO HS Bisacodyl 10 Mg Supp.rect 10 Mg RC PRN DAILY PRN Tylenol (Acetaminophen) 325 Mg Tablet 650 Mg PO PRN Q6HRS PRN I have reviewed the current psychotropics carefully including drug interactions. Risk benefit ratio favors no change other than as noted in my dictated progress note. Diagnosis: Problems: (1) Adult general medical examination (2) Anxiety disorder (3) Impulse control disorder (4) Schizophrenia, paranoid, chronic with acute exacerbation CATHY EMERY MD May 17, 2018 20:55
[2018-05-18] MEDS: LEVOTHYROXINE 50 MCG TABLET PO SCH (06:06)
[2018-05-18 06:13] VITALS: BP 104/72
[2018-05-18] MEDS: NICOTINE 7MG PATCH. TD SCH (08:55)
[2018-05-18] MEDS: MULTIVITAMIN with MINERAL TABLET. PO SCH (08:55)
[2018-05-18] MEDS: busPIRone 10 MG TABLET. PO SCH ×3 (08:55→20:19)
[2018-05-18] MEDS: amLODIPine BESYLATE 10 MG TABLET PO SCH (08:55)
[2018-05-18] MEDS: GABAPENTIN 400 MG CAPSULE. PO SCH ×4 (08:55→20:17)
[2018-05-18] MEDS: POTASSIUM CHLORIDE 20 MEQ TABLET.ER. PO SCH (08:56)
[2018-05-18] MEDS: DULoxetine HCL 60 MG CAPSULE.DR PO SCH (08:56)
[2018-05-18] MEDS: OXYBUTYNIN CHLORIDE 5 MG TABLET PO SCH ×2 (08:56→20:17)
[2018-05-18] MEDS: BACLOFEN 10 MG TABLET PO SCH ×4 (08:57→20:17)
[2018-05-18] MEDS: TAMSULOSIN 0.4 MG CAP.ER.24H. PO SCH (08:57)
[2018-05-18] MEDS: GABAPENTIN 100 MG CAPSULE. PO SCH ×4 (08:57→20:17)
[2018-05-18] MEDS: LACTULOSE 20 GM/30 ML SOLUTION. PO SCH ×5 (08:57→20:28)
[2018-05-18] MEDS: clonazePAM 0.5 MG TABLET PO SCH ×2 (08:58→13:04)
[2018-05-18 16:46] VITALS: BP 113/74
[2018-05-18] MEDS: DIVALPROEX ER 500 MG TAB.ER.24H PO SCH (20:16)
[2018-05-18] MEDS: traZODone 50 MG TABLET. PO SCH (20:17)
[2018-05-18] MEDS: risperiDONE 1 MG TABLET. PO SCH (20:17)
[2018-05-18] MEDS: risperiDONE 0.25 MG TABLET. PO SCH (20:18)
[2018-05-18] MEDS: MIRTAZAPINE 7.5 MG TABLET. PO SCH (20:19)
--- NOTE | 2018-05-18 21:09 | PDOC ---
Exam Note: Nguyễn Note: Please also refer to the separate dictated note~for this date of service dictated separately.~Patient seen individually. Discussed the patient with Nursing staff reviewed the chart.~Reviewed interim history and current functioning. Reviewed vital signs,~Labs/ Radiology~and current medications noted below. Continue current treatment with the changes noted in the dictated addendum note Assessment: Vital Signs: Vital Signs Date Time Temp Pulse Resp B/P (MAP) Pulse Ox O2 Delivery O2 Flow Rate FiO2 05/18/18 16:46 98.4 81 18 113/74 (87) 97 05/17/18 06:04 Room Air I&O Intake and Output 05/18/18 07:00 Intake Total 1440 ml Balance 1440 ml Intake Oral 1440 ml # Voids 1 Current Medications: Meds: Current Medications Clonazepam (KlonoPIN) 0.5 mg BID92 PO Last administered on 05/18/18at 13:04; Start 04/30/18 at 09:00 Non-Formulary Medication (Buspirone Hcl ) 10 mg TID PO ; Start 04/30/18 at 09:00 ; Stop 04/30/18 at 09:00; Status DC Non-Formulary Medication (Divalproex Sodium (Depakote Er)) 1,000 mg HS PO ; Start 04/30/18 at 21:00; Stop 04/30/18 at 21:00; Status DC Non-Formulary Medication (Duloxetine Hcl (Cymbalta)) 60 mg DAILY PO ; Start at 09:00; Stop 04/30/18 at 09:00; Status DC Non-Formulary Medication (Mirtazapine (Remeron)) 7.5 mg HS PO ; Start 04/30/18 at 21:00; Stop 04/30/18 at 21:00; Status DC Non-Formulary Medication (Olanzapine ) 5 mg HS PO ; Start 04/30/18 at 21:00; Stop 04/30/18 at 21:00; Status DC Non-Formulary Medication (Trazodone Hcl ) 50 mg HS PO ; Start 04/30/18 at 21:00 ; Stop 04/30/18 at 21:00; Status DC Acetaminophen (Tylenol) 650 mg PRN Q6HRS PRN PO PAIN / TEMP; Start 04/29/18 at 23:45 Gabapentin (Neurontin) 100 mg QID PO ; Start 04/30/18 at 09:00; Stop 04/30/18 at 09:00; Status DC Lactulose (Lactulose) 20 gm TID PO Last administered on 05/17/18at 19:35; Start 04/30/18 at 09:00 Oxybutynin Chloride (Ditropan) 2.5 mg BID PO Last administered on 05/18/18at 20: 17; Start 04/30/18 at 09:00 Potassium Chloride (Klor-Con) 20 meq DAILY PO Last administered on 05/18/18at 08 :56; Start 04/30/18 at 09:00 Tamsulosin HCl (Flomax) 0.8 mg DAILY PO Last administered on 05/18/18at 08:57; Start 04/30/18 at 09:00 Non-Formulary Medication (Amlodipine Besylate (Norvasc)) 10 mg DAILY PO ; Start 04/30/18 at 09:00; Stop 04/30/18 at 09:00; Status DC Non-Formulary Medication (Baclofen ) 10 mg QID PO ; Start 04/30/18 at 09:00; Stop 04/30/18 at 09:00; Status DC Non-Formulary Medication (Bisacodyl ) 10 mg PRN DAILY PRN [place] CONSTIPATION; Start 04/29/18 at 23:45; Stop 04/30/18 at 01:39; Status DC Non-Formulary Medication (Gabapentin ) 800 mg QID PO ; Start 04/30/18 at 09:00; Stop 04/30/18 at 09:00; Status DC Non-Formulary Medication (Levothyroxine Sodium ) 50 mcg DAILYAC PO ; Start 04/30 at 07:30; Stop 04/30/18 at 07:30; Status DC Non-Formulary Medication (Multivitamin/ Iron/Folic Acid (Multivitamin with Iron Tablet)) 1 tab DAILY PO ; Start 04/30/18 at 09:00; Stop 04/30/18 at 09:00; Status DC Multi-Ingredient Ointment (Analgesic [place]) 1 jing PRN QID PRN TP MUSCLE PAIN; Start 04/29/18 at 23:45 Al Hydroxide/Mg Hydroxide (Mylanta Plus Xs) 15 ml PRN AFTMEALHC PRN PO DYSPEPSIA; Start 04/29/18 at 23:45 Magnesium Hydroxide (Milk Of Magnesia) 2,400 mg PRN QHS PRN PO CONSTIPATION; Start 04/29/18 at 23:45 Nicotine (Nicoderm Cq 14mg) 1 patch DAILY TD Last administered on 05/11/18at 09: 22; Start 04/30/18 at 09:00; Stop 05/12/18 at 11:26; Status DC Gabapentin (Neurontin) 100 mg QID PO Last administered on 05/18/18at 20:17; Start 04/30/18 at 00:30 Non-Formulary Medication (Baclofen ) 10 mg QID PO ; Start 04/30/18 at 00:00; Stop 04/30/18 at 01:39; Status DC Non-Formulary Medication (Buspirone Hcl ) 10 mg TID PO ; Start 04/30/18 at 00:00 ; Stop 04/30/18 at 01:39; Status DC Non-Formulary Medication (Divalproex Sodium (Depakote Er)) 1,000 mg HS PO ; Start 04/30/18 at 00:00; Stop 04/30/18 at 01:39; Status DC Non-Formulary Medication (Gabapentin ) 800 mg QID PO ; Start 04/30/18 at 00:00; Stop 04/30/18 at 01:39; Status DC Non-Formulary Medication (Mirtazapine (Remeron)) 7.5 mg HS PO ; Start 04/30/18 at 00:00; Stop 04/30/18 at 01:39; Status DC Non-Formulary Medication (Olanzapine ) 5 mg HS PO ; Start 04/30/18 at 00:00; Stop 04/30/18 at 01:39; Status DC Non-Formulary Medication (Trazodone Hcl ) 50 mg HS PO ; Start 04/30/18 at 00:00 ; Stop 04/30/18 at 01:39; Status DC Bisacodyl (Dulcolax Supp) 10 mg PRN DAILY PRN [place] CONSTIPATION; Start 04/30/18 at 01:45 Multivitamins/ Calcium (Thera-M Plus) 1 tab DAILY PO Last administered on at 08:55; Start 04/30/18 at 09:00 Amlodipine Besylate (Norvasc) 10 mg DAILY PO Last administered on 05/18/18 08: 55; Start 04/30/18 at 09:00 Levothyroxine Sodium (Synthroid) 50 mcg DAILY07 PO Last administered on 05:52; Start 04/30/18 at 07:00; Stop 04/30/18 at 15:49; Status DC Gabapentin (Neurontin) 800 mg QID PO Last administered on 05/18/18 20:17; Start 04/30/18 at 09:00 Baclofen (Lioresal) 10 mg QID PO Last administered on 05/18/18 20:17; Start at 09:00 Mirtazapine (Remeron) 7.5 mg QHS PO Last administered on 05/18/18 20:19; Start 04/30/18 at 21:00 Olanzapine (ZyPREXA) 5 mg HS PO Last administered on 04/30/18 20:21; Start at 21:00; Stop 05/01/18 at 18:33; Status DC Trazodone HCl (Desyrel) 50 mg QHS PO Last administered on 05/18/18 20:17; Start 04/30/18 at 21:00 Duloxetine HCl (Cymbalta) 60 mg DAILY PO Last administered on 05/18/18 08:56; Start 04/30/18 at 09:00 Divalproex Sodium (Depakote Er) 1,000 mg QHS PO Last administered on 04/30/18 20:21; Start 04/30/18 at 21:00; Stop 05/01/18 at 18:33; Status DC Buspirone HCl (Buspar) 10 mg TID PO Last administered on 05/18/18 20:19; Start 04/30/18 at 09:00 Levothyroxine Sodium (Synthroid) 50 mcg DAILY06 PO Last administered on 06:06; Start 05/01/18 at 06:00 Divalproex Sodium (Depakote Er) 1,500 mg QHS PO Last administered on 05/18/18 20:16; Start 05/01/18 at 21:00 Risperidone (RisperDAL) 1 mg QHS PO Last administered on 05/03/18at 21:23; Start 05/01/18 at 21:00; Stop 05/04/18 at 17:21; Status DC Risperidone (RisperDAL) 1 mg QHS PO Last administered on 05/18/18at 20:17; Start 05/04/18 at 21:00 Risperidone (RisperDAL) 0.25 mg QHS PO Last administered on 05/04/18at 20:07; Start 05/04/18 at 21:00; Stop 05/05/18 at 17:39; Status DC Olanzapine (ZyPREXA ZYDIS) 2.5 mg PRN Q2HR PRN PO PSYCHOSIS; Start 05/04/18 at 23:00 Risperidone (RisperDAL) 0.5 mg QHS PO Last administered on 05/16/18at 20:22; Start 05/05/18 at 21:00; Stop 05/17/18 at 16:20; Status DC Trazodone HCl (Desyrel) 50 mg PRN QHS PRN PO Insomnia; Start 05/06/18 at 22:30 Nicotine (Nicoderm Cq 7mg) 1 patch DAILY TD Last administered on 05/18/18at 08: 55; Start 05/13/18 at 09:00 Risperidone (RisperDAL) 0.75 mg QHS PO Last administered on 05/18/18at 20:18; Start 05/17/18 at 21:00 Active Scripts Active Reported Buspirone Hcl 10 Mg Tablet 10 Mg PO TID Baclofen 10 Mg Tablet 10 Mg PO QID Gabapentin 100 Mg Capsule 100 Mg PO QID Gabapentin 800 Mg Tablet 800 Mg PO QID Levothyroxine Sodium 50 Mcg Tablet 50 Mcg PO DAILYAC Klonopin (Clonazepam) 0.5 Mg Tablet 0.5 Mg PO BID92 Lactulose 20 Gm/30 Ml Solution 30 Ml PO TID Norvasc (Amlodipine Besylate) 10 Mg Tablet 10 Mg PO DAILY Oxybutynin Chloride 5 Mg Tablet 2.5 Mg PO BID Depakote Er (Divalproex Sodium) 500 Mg Tab.er.24h 1,000 Mg PO HS Klor-Con M20 (Potassium Chloride) 20 Meq Tab.er.prt 20 Meq PO DAILY Cymbalta (Duloxetine Hcl) 60 Mg Capsule.dr 60 Mg PO DAILY Multivitamin with Iron Tablet (Multivitamin/Iron/Folic Acid) 1 Each Tablet 1 Tab PO DAILY Flomax (Tamsulosin Hcl) 0.4 Mg Cap.er.24h 0.8 Mg PO DAILY Trazodone Hcl 50 Mg Tablet 50 Mg PO HS Olanzapine 5 Mg Tablet 5 Mg PO HS Remeron (Mirtazapine) 15 Mg Tablet 7.5 Mg PO HS Bisacodyl 10 Mg Supp.rect 10 Mg RC PRN DAILY PRN Tylenol (Acetaminophen) 325 Mg Tablet 650 Mg PO PRN Q6HRS PRN I have reviewed the current psychotropics carefully including drug interactions. Risk benefit ratio favors no change other than as noted in my dictated progress note. Diagnosis: Problems: (1) Adult general medical examination (2) Anxiety disorder (3) Impulse control disorder (4) Schizophrenia, paranoid, chronic with acute exacerbation CATHY EMERY MD May 18, 2018 21:09
--- NOTE | 2018-05-18 23:29 | PN ---
DATE: 05/17/2018 This is a late entry for 05/17/2018 covers elements not covered in my initial note. SUBJECTIVE: I met with the patient in the evening. The patient slept 7-3/4 hours previous evening. Valproic acid level is 61 on the 4th, therapeutic. He remains somewhat withdrawn at times, but interactive, slightly paranoid at certain times, but much improved overall. He refuses to go back to [facility]. Social service staff is working with him and his family around this. REVIEW OF SYSTEMS: Ambulation impaired, with walker. No CV, , pulmonary, eye system symptoms on review. MENTAL STATUS EXAM: Reasonably oriented. Speech is coherent, has some latency. Abstraction fair, computation impaired, language function intact. Mood and affect somewhat withdrawn, but less depressed. LABORATORY DATA: Reviewed. IMPRESSION: Schizoaffective disorder, bipolar type, mixed with psychotic features, in partial remission. PLAN: Increase Risperdal from 1.5 to 1.75 mg p.o. at bedtime. Continue Depakote at current dosage, level therapeutic. Maintain Cymbalta, BuSpar, trazodone, Remeron, unchanged for now. MAN Ty EMERY MD DR: SARINA/nilda JOB#: [id number] / [id number]
[2018-05-19] MEDS: LEVOTHYROXINE 50 MCG TABLET PO SCH (05:50)
[2018-05-19 06:09] VITALS: BP 162/79
[2018-05-19] MEDS: TAMSULOSIN 0.4 MG CAP.ER.24H. PO SCH (10:06)
[2018-05-19] MEDS: DULoxetine HCL 60 MG CAPSULE.DR PO SCH (10:06)
[2018-05-19] MEDS: MULTIVITAMIN with MINERAL TABLET. PO SCH (10:06)
[2018-05-19] MEDS: GABAPENTIN 100 MG CAPSULE. PO SCH ×4 (10:07→20:52)
[2018-05-19] MEDS: OXYBUTYNIN CHLORIDE 5 MG TABLET PO SCH ×2 (10:07→20:52)
[2018-05-19] MEDS: POTASSIUM CHLORIDE 20 MEQ TABLET.ER. PO SCH (10:07)
[2018-05-19] MEDS: amLODIPine BESYLATE 10 MG TABLET PO SCH (10:07)
[2018-05-19] MEDS: BACLOFEN 10 MG TABLET PO SCH ×4 (10:07→20:51)
[2018-05-19] MEDS: GABAPENTIN 400 MG CAPSULE. PO SCH ×4 (10:08→20:52)
[2018-05-19] MEDS: busPIRone 10 MG TABLET. PO SCH ×3 (10:08→20:53)
[2018-05-19] MEDS: clonazePAM 0.5 MG TABLET PO SCH ×2 (10:09→17:13)
[2018-05-19] MEDS: NICOTINE 7MG PATCH. TD SCH (10:18)
[2018-05-19] MEDS: LACTULOSE 20 GM/30 ML SOLUTION. PO SCH ×3 (10:18→21:00)
[2018-05-19 16:18] VITALS: BP 103/70
[2018-05-19] MEDS: risperiDONE 0.25 MG TABLET. PO SCH (20:51)
[2018-05-19] MEDS: traZODone 50 MG TABLET. PO SCH (20:51)
[2018-05-19] MEDS: MIRTAZAPINE 7.5 MG TABLET. PO SCH (20:52)
[2018-05-19] MEDS: risperiDONE 1 MG TABLET. PO SCH (20:52)
[2018-05-19] MEDS: DIVALPROEX ER 500 MG TAB.ER.24H PO SCH (20:53)
--- NOTE | 2018-05-19 21:00 | PDOC ---
Exam Note: Nguyễn Note: Please also refer to the separate dictated note~for this date of service dictated separately.~Patient seen individually. Discussed the patient with Nursing staff reviewed the chart.~Reviewed interim history and current functioning. Reviewed vital signs,~Labs/ Radiology~and current medications noted below. Continue current treatment with the changes noted in the dictated addendum note Assessment: Vital Signs: Vital Signs Date Time Temp Pulse Resp B/P (MAP) Pulse Ox O2 Delivery O2 Flow Rate FiO2 05/19/18 16:18 98.7 79 18 103/70 (81) 97 05/17/18 06:04 Room Air I&O Intake and Output 05/19/18 07:00 Intake Total 1680 ml Balance 1680 ml Intake Oral 1680 ml # Voids 1 Current Medications: Meds: Current Medications Clonazepam (KlonoPIN) 0.5 mg BID92 PO Last administered on 05/19/18at 17:13; Start 04/30/18 at 09:00 Non-Formulary Medication (Buspirone Hcl ) 10 mg TID PO ; Start 04/30/18 at 09:00 ; Stop 04/30/18 at 09:00; Status DC Non-Formulary Medication (Divalproex Sodium (Depakote Er)) 1,000 mg HS PO ; Start 04/30/18 at 21:00; Stop 04/30/18 at 21:00; Status DC Non-Formulary Medication (Duloxetine Hcl (Cymbalta)) 60 mg DAILY PO ; Start at 09:00; Stop 04/30/18 at 09:00; Status DC Non-Formulary Medication (Mirtazapine (Remeron)) 7.5 mg HS PO ; Start 04/30/18 at 21:00; Stop 04/30/18 at 21:00; Status DC Non-Formulary Medication (Olanzapine ) 5 mg HS PO ; Start 04/30/18 at 21:00; Stop 04/30/18 at 21:00; Status DC Non-Formulary Medication (Trazodone Hcl ) 50 mg HS PO ; Start 04/30/18 at 21:00 ; Stop 04/30/18 at 21:00; Status DC Acetaminophen (Tylenol) 650 mg PRN Q6HRS PRN PO PAIN / TEMP; Start 04/29/18 at 23:45 Gabapentin (Neurontin) 100 mg QID PO ; Start 04/30/18 at 09:00; Stop 04/30/18 at 09:00; Status DC Lactulose (Lactulose) 20 gm TID PO Last administered on 05/17/18at 19:35; Start 04/30/18 at 09:00 Oxybutynin Chloride (Ditropan) 2.5 mg BID PO Last administered on 05/19/18at 20 :52; Start 04/30/18 at 09:00 Potassium Chloride (Klor-Con) 20 meq DAILY PO Last administered on 05/19/18at 10:07; Start 04/30/18 at 09:00 Tamsulosin HCl (Flomax) 0.8 mg DAILY PO Last administered on 05/19/18at 10:06; Start 04/30/18 at 09:00 Non-Formulary Medication (Amlodipine Besylate (Norvasc)) 10 mg DAILY PO ; Start 04/30/18 at 09:00; Stop 04/30/18 at 09:00; Status DC Non-Formulary Medication (Baclofen ) 10 mg QID PO ; Start 04/30/18 at 09:00; Stop 04/30/18 at 09:00; Status DC Non-Formulary Medication (Bisacodyl ) 10 mg PRN DAILY PRN RC CONSTIPATION; Start 04/29/18 at 23:45; Stop 04/30/18 at 01:39; Status DC Non-Formulary Medication (Gabapentin ) 800 mg QID PO ; Start 04/30/18 at 09:00; Stop 04/30/18 at 09:00; Status DC Non-Formulary Medication (Levothyroxine Sodium ) 50 mcg DAILYAC PO ; Start 04/30 at 07:30; Stop 04/30/18 at 07:30; Status DC Non-Formulary Medication (Multivitamin/ Iron/Folic Acid (Multivitamin with Iron Tablet)) 1 tab DAILY PO ; Start 04/30/18 at 09:00; Stop 04/30/18 at 09:00; Status DC Multi-Ingredient Ointment (Analgesic [place]) 1 jing PRN QID PRN TP MUSCLE PAIN; Start 04/29/18 at 23:45 Al Hydroxide/Mg Hydroxide (Mylanta Plus Xs) 15 ml PRN AFTMEALHC PRN PO DYSPEPSIA; Start 04/29/18 at 23:45 Magnesium Hydroxide (Milk Of Magnesia) 2,400 mg PRN QHS PRN PO CONSTIPATION; Start 04/29/18 at 23:45 Nicotine (Nicoderm Cq 14mg) 1 patch DAILY TD Last administered on 05/11/18at 09: 22; Start 04/30/18 at 09:00; Stop 05/12/18 at 11:26; Status DC Gabapentin (Neurontin) 100 mg QID PO Last administered on 05/19/18at 20:52; Start 04/30/18 at 00:30 Non-Formulary Medication (Baclofen ) 10 mg QID PO ; Start 04/30/18 at 00:00; Stop 04/30/18 at 01:39; Status DC Non-Formulary Medication (Buspirone Hcl ) 10 mg TID PO ; Start 04/30/18 at 00:00 ; Stop 04/30/18 at 01:39; Status DC Non-Formulary Medication (Divalproex Sodium (Depakote Er)) 1,000 mg HS PO ; Start 04/30/18 at 00:00; Stop 04/30/18 at 01:39; Status DC Non-Formulary Medication (Gabapentin ) 800 mg QID PO ; Start 04/30/18 at 00:00; Stop 04/30/18 at 01:39; Status DC Non-Formulary Medication (Mirtazapine (Remeron)) 7.5 mg HS PO ; Start 04/30/18 at 00:00; Stop 04/30/18 at 01:39; Status DC Non-Formulary Medication (Olanzapine ) 5 mg HS PO ; Start 04/30/18 at 00:00; Stop 04/30/18 at 01:39; Status DC Non-Formulary Medication (Trazodone Hcl ) 50 mg HS PO ; Start 04/30/18 at 00:00 ; Stop 04/30/18 at 01:39; Status DC Bisacodyl (Dulcolax Supp) 10 mg PRN DAILY PRN [place] CONSTIPATION; Start 04/30/18 at 01:45 Multivitamins/ Calcium (Thera-M Plus) 1 tab DAILY PO Last administered on 05/19at 10:06; Start 04/30/18 at 09:00 Amlodipine Besylate (Norvasc) 10 mg DAILY PO Last administered on 05/19/18 10 :07; Start 04/30/18 at 09:00 Levothyroxine Sodium (Synthroid) 50 mcg DAILY07 PO Last administered on 05:52; Start 04/30/18 at 07:00; Stop 04/30/18 at 15:49; Status DC Gabapentin (Neurontin) 800 mg QID PO Last administered on 05/19/18 20:52; Start 04/30/18 at 09:00 Baclofen (Lioresal) 10 mg QID PO Last administered on 05/19/18 20:51; Start 04/30/18 at 09:00 Mirtazapine (Remeron) 7.5 mg QHS PO Last administered on 05/19/18 20:52; Start 04/30/18 at 21:00 Olanzapine (ZyPREXA) 5 mg HS PO Last administered on 04/30/18 20:21; Start at 21:00; Stop 05/01/18 at 18:33; Status DC Trazodone HCl (Desyrel) 50 mg QHS PO Last administered on 05/19/18 20:51; Start 04/30/18 at 21:00 Duloxetine HCl (Cymbalta) 60 mg DAILY PO Last administered on 05/19/18 10:06 ; Start 04/30/18 at 09:00 Divalproex Sodium (Depakote Er) 1,000 mg QHS PO Last administered on 04/30/18 20:21; Start 04/30/18 at 21:00; Stop 05/01/18 at 18:33; Status DC Buspirone HCl (Buspar) 10 mg TID PO Last administered on 05/19/18 20:53; Start 04/30/18 at 09:00 Levothyroxine Sodium (Synthroid) 50 mcg DAILY06 PO Last administered on 05:50; Start 05/01/18 at 06:00 Divalproex Sodium (Depakote Er) 1,500 mg QHS PO Last administered on 20:53; Start 05/01/18 at 21:00 Risperidone (RisperDAL) 1 mg QHS PO Last administered on 05/03/18at 21:23; Start 05/01/18 at 21:00; Stop 05/04/18 at 17:21; Status DC Risperidone (RisperDAL) 1 mg QHS PO Last administered on 05/19/18at 20:52; Start 05/04/18 at 21:00 Risperidone (RisperDAL) 0.25 mg QHS PO Last administered on 05/04/18at 20:07; Start 05/04/18 at 21:00; Stop 05/05/18 at 17:39; Status DC Olanzapine (ZyPREXA ZYDIS) 2.5 mg PRN Q2HR PRN PO PSYCHOSIS; Start 05/04/18 at 23:00 Risperidone (RisperDAL) 0.5 mg QHS PO Last administered on 05/16/18at 20:22; Start 05/05/18 at 21:00; Stop 05/17/18 at 16:20; Status DC Trazodone HCl (Desyrel) 50 mg PRN QHS PRN PO Insomnia; Start 05/06/18 at 22:30 Nicotine (Nicoderm Cq 7mg) 1 patch DAILY TD Last administered on 05/18/18at 08: 55; Start 05/13/18 at 09:00 Risperidone (RisperDAL) 0.75 mg QHS PO Last administered on 05/19/18at 20:51; Start 05/17/18 at 21:00 Active Scripts Active Reported Buspirone Hcl 10 Mg Tablet 10 Mg PO TID Baclofen 10 Mg Tablet 10 Mg PO QID Gabapentin 100 Mg Capsule 100 Mg PO QID Gabapentin 800 Mg Tablet 800 Mg PO QID Levothyroxine Sodium 50 Mcg Tablet 50 Mcg PO DAILYAC Klonopin (Clonazepam) 0.5 Mg Tablet 0.5 Mg PO BID92 Lactulose 20 Gm/30 Ml Solution 30 Ml PO TID Norvasc (Amlodipine Besylate) 10 Mg Tablet 10 Mg PO DAILY Oxybutynin Chloride 5 Mg Tablet 2.5 Mg PO BID Depakote Er (Divalproex Sodium) 500 Mg Tab.er.24h 1,000 Mg PO HS Klor-Con M20 (Potassium Chloride) 20 Meq Tab.er.prt 20 Meq PO DAILY Cymbalta (Duloxetine Hcl) 60 Mg Capsule.dr 60 Mg PO DAILY Multivitamin with Iron Tablet (Multivitamin/Iron/Folic Acid) 1 Each Tablet 1 Tab PO DAILY Flomax (Tamsulosin Hcl) 0.4 Mg Cap.er.24h 0.8 Mg PO DAILY Trazodone Hcl 50 Mg Tablet 50 Mg PO HS Olanzapine 5 Mg Tablet 5 Mg PO HS Remeron (Mirtazapine) 15 Mg Tablet 7.5 Mg PO HS Bisacodyl 10 Mg Supp.rect 10 Mg RC PRN DAILY PRN Tylenol (Acetaminophen) 325 Mg Tablet 650 Mg PO PRN Q6HRS PRN I have reviewed the current psychotropics carefully including drug interactions. Risk benefit ratio favors no change other than as noted in my dictated progress note. Diagnosis: Problems: (1) Adult general medical examination (2) Anxiety disorder (3) Impulse control disorder (4) Schizophrenia, paranoid, chronic with acute exacerbation CATHY EMERY MD May 19, 2018 21:00
--- NOTE | 2018-05-19 21:32 | PN ---
DATE: 05/18/2018 PSYCHIATRIC PROGRESS NOTE This late entry 05/18/2018 covers elements not covered in my initial note. SUBJECTIVE: I met with the patient in the evening. The patient slept 7 hours previous night. He has been fairly appropriate on the unit, not overtly psychotic, but as I met with him, he was trying to whisper in my ear when we talked about placement options. He prefers not to go back to [facility]. REVIEW OF SYSTEMS: Ambulation impaired with walker. No CV, , pulmonary, eye, ENT system symptoms on review. MENTAL STATUS EXAM: Reasonably oriented. Speech coherent, abstraction fair, computation impaired, language function intact. Mood and affect somewhat withdrawn at times. LABORATORY DATA: Reviewed. IMPRESSION: Unchanged from initial note. PLAN: No change from initial note. MAN Ty EMERY MD DR: SARINA/nilda JOB#: [id number] / [id number]
[2018-05-20] MEDS: LEVOTHYROXINE 50 MCG TABLET PO SCH (05:35)
[2018-05-20 06:15] VITALS: BP 130/83
[2018-05-20] MEDS: OXYBUTYNIN CHLORIDE 5 MG TABLET PO SCH ×2 (09:21→19:11)
[2018-05-20] MEDS: LACTULOSE 20 GM/30 ML SOLUTION. PO SCH ×4 (09:21→19:13)
[2018-05-20] MEDS: GABAPENTIN 100 MG CAPSULE. PO SCH ×4 (09:21→19:11)
[2018-05-20] MEDS: POTASSIUM CHLORIDE 20 MEQ TABLET.ER. PO SCH (09:21)
[2018-05-20] MEDS: DULoxetine HCL 60 MG CAPSULE.DR PO SCH (09:21)
[2018-05-20] MEDS: TAMSULOSIN 0.4 MG CAP.ER.24H. PO SCH (09:21)
[2018-05-20] MEDS: MULTIVITAMIN with MINERAL TABLET. PO SCH (09:21)
[2018-05-20] MEDS: busPIRone 10 MG TABLET. PO SCH ×3 (09:22→19:11)
[2018-05-20] MEDS: GABAPENTIN 400 MG CAPSULE. PO SCH ×4 (09:22→19:10)
[2018-05-20] MEDS: BACLOFEN 10 MG TABLET PO SCH ×4 (09:22→19:11)
[2018-05-20] MEDS: amLODIPine BESYLATE 10 MG TABLET PO SCH (09:22)
[2018-05-20] MEDS: NICOTINE 7MG PATCH. TD SCH ×2 (09:23→09:34)
[2018-05-20] MEDS: clonazePAM 0.5 MG TABLET PO SCH ×2 (09:29→14:25)
[2018-05-20 16:39] VITALS: BP 111/77
[2018-05-20] MEDS: DIVALPROEX ER 500 MG TAB.ER.24H PO SCH (19:10)
[2018-05-20] MEDS: MIRTAZAPINE 7.5 MG TABLET. PO SCH (19:10)
[2018-05-20] MEDS: risperiDONE 0.25 MG TABLET. PO SCH (19:10)
[2018-05-20] MEDS: traZODone 50 MG TABLET. PO SCH (19:10)
[2018-05-20] MEDS: risperiDONE 1 MG TABLET. PO SCH (19:11)
--- NOTE | 2018-05-20 20:48 | PDOC ---
Exam Note: Nguyễn Note: Please also refer to the separate dictated note~for this date of service dictated separately.~Patient seen individually. Discussed the patient with Nursing staff reviewed the chart.~Reviewed interim history and current functioning. Reviewed vital signs,~Labs/ Radiology~and current medications noted below. Continue current treatment with the changes noted in the dictated addendum note Assessment: Vital Signs: Vital Signs Date Time Temp Pulse Resp B/P (MAP) Pulse Ox O2 Delivery O2 Flow Rate FiO2 05/20/18 16:39 98.6 78 19 111/77 (88) 96 Room Air I&O Intake and Output 05/20/18 07:00 Intake Total 480 ml Balance 480 ml Intake Oral 480 ml # Voids 1 Current Medications: Meds: Current Medications Clonazepam (KlonoPIN) 0.5 mg BID92 PO Last administered on 05/20/18at 14:25; Start 04/30/18 at 09:00 Non-Formulary Medication (Buspirone Hcl ) 10 mg TID PO ; Start 04/30/18 at 09:00 ; Stop 04/30/18 at 09:00; Status DC Non-Formulary Medication (Divalproex Sodium (Depakote Er)) 1,000 mg HS PO ; Start 04/30/18 at 21:00; Stop 04/30/18 at 21:00; Status DC Non-Formulary Medication (Duloxetine Hcl (Cymbalta)) 60 mg DAILY PO ; Start at 09:00; Stop 04/30/18 at 09:00; Status DC Non-Formulary Medication (Mirtazapine (Remeron)) 7.5 mg HS PO ; Start 04/30/18 at 21:00; Stop 04/30/18 at 21:00; Status DC Non-Formulary Medication (Olanzapine ) 5 mg HS PO ; Start 04/30/18 at 21:00; Stop 04/30/18 at 21:00; Status DC Non-Formulary Medication (Trazodone Hcl ) 50 mg HS PO ; Start 04/30/18 at 21:00 ; Stop 04/30/18 at 21:00; Status DC Acetaminophen (Tylenol) 650 mg PRN Q6HRS PRN PO PAIN / TEMP; Start 04/29/18 at 23:45 Gabapentin (Neurontin) 100 mg QID PO ; Start 04/30/18 at 09:00; Stop 04/30/18 at 09:00; Status DC Lactulose (Lactulose) 20 gm TID PO Last administered on 05/20/18at 19:13; Start 04/30/18 at 09:00 Oxybutynin Chloride (Ditropan) 2.5 mg BID PO Last administered on 05/20/18at 19 :11; Start 04/30/18 at 09:00 Potassium Chloride (Klor-Con) 20 meq DAILY PO Last administered on 05/20/18at 09:21; Start 04/30/18 at 09:00 Tamsulosin HCl (Flomax) 0.8 mg DAILY PO Last administered on 05/20/18at 09:21; Start 04/30/18 at 09:00 Non-Formulary Medication (Amlodipine Besylate (Norvasc)) 10 mg DAILY PO ; Start 04/30/18 at 09:00; Stop 04/30/18 at 09:00; Status DC Non-Formulary Medication (Baclofen ) 10 mg QID PO ; Start 04/30/18 at 09:00; Stop 04/30/18 at 09:00; Status DC Non-Formulary Medication (Bisacodyl ) 10 mg PRN DAILY PRN RC CONSTIPATION; Start 04/29/18 at 23:45; Stop 04/30/18 at 01:39; Status DC Non-Formulary Medication (Gabapentin ) 800 mg QID PO ; Start 04/30/18 at 09:00; Stop 04/30/18 at 09:00; Status DC Non-Formulary Medication (Levothyroxine Sodium ) 50 mcg DAILYAC PO ; Start 04/30 at 07:30; Stop 04/30/18 at 07:30; Status DC Non-Formulary Medication (Multivitamin/ Iron/Folic Acid (Multivitamin with Iron Tablet)) 1 tab DAILY PO ; Start 04/30/18 at 09:00; Stop 04/30/18 at 09:00; Status DC Multi-Ingredient Ointment (Analgesic [place]) 1 jing PRN QID PRN TP MUSCLE PAIN; Start 04/29/18 at 23:45 Al Hydroxide/Mg Hydroxide (Mylanta Plus Xs) 15 ml PRN AFTMEALHC PRN PO DYSPEPSIA; Start 04/29/18 at 23:45 Magnesium Hydroxide (Milk Of Magnesia) 2,400 mg PRN QHS PRN PO CONSTIPATION; Start 04/29/18 at 23:45 Nicotine (Nicoderm Cq 14mg) 1 patch DAILY TD Last administered on 05/11/18at 09: 22; Start 04/30/18 at 09:00; Stop 05/12/18 at 11:26; Status DC Gabapentin (Neurontin) 100 mg QID PO Last administered on 05/20/18at 19:11; Start 04/30/18 at 00:30 Non-Formulary Medication (Baclofen ) 10 mg QID PO ; Start 04/30/18 at 00:00; Stop 04/30/18 at 01:39; Status DC Non-Formulary Medication (Buspirone Hcl ) 10 mg TID PO ; Start 04/30/18 at 00:00 ; Stop 04/30/18 at 01:39; Status DC Non-Formulary Medication (Divalproex Sodium (Depakote Er)) 1,000 mg HS PO ; Start 04/30/18 at 00:00; Stop 04/30/18 at 01:39; Status DC Non-Formulary Medication (Gabapentin ) 800 mg QID PO ; Start 04/30/18 at 00:00; Stop 04/30/18 at 01:39; Status DC Non-Formulary Medication (Mirtazapine (Remeron)) 7.5 mg HS PO ; Start 04/30/18 at 00:00; Stop 04/30/18 at 01:39; Status DC Non-Formulary Medication (Olanzapine ) 5 mg HS PO ; Start 04/30/18 at 00:00; Stop 04/30/18 at 01:39; Status DC Non-Formulary Medication (Trazodone Hcl ) 50 mg HS PO ; Start 04/30/18 at 00:00 ; Stop 04/30/18 at 01:39; Status DC Bisacodyl (Dulcolax Supp) 10 mg PRN DAILY PRN [place] CONSTIPATION; Start 04/30/18 at 01:45 Multivitamins/ Calcium (Thera-M Plus) 1 tab DAILY PO Last administered on 05/20at 09:21; Start 04/30/18 at 09:00 Amlodipine Besylate (Norvasc) 10 mg DAILY PO Last administered on 05/20/18at 09 :22; Start 04/30/18 at 09:00 Levothyroxine Sodium (Synthroid) 50 mcg DAILY07 PO Last administered on at 05:52; Start 04/30/18 at 07:00; Stop 04/30/18 at 15:49; Status DC Gabapentin (Neurontin) 800 mg QID PO Last administered on 05/20/18 19:10; Start 04/30/18 at 09:00 Baclofen (Lioresal) 10 mg QID PO Last administered on 05/20/18 19:11; Start 04/30/18 at 09:00 Mirtazapine (Remeron) 7.5 mg QHS PO Last administered on 05/20/18 19:10; Start 04/30/18 at 21:00 Olanzapine (ZyPREXA) 5 mg HS PO Last administered on 04/30/18 20:21; Start at 21:00; Stop 05/01/18 at 18:33; Status DC Trazodone HCl (Desyrel) 50 mg QHS PO Last administered on 05/20/18 19:10; Start 04/30/18 at 21:00 Duloxetine HCl (Cymbalta) 60 mg DAILY PO Last administered on 05/20/18 09:21 ; Start 04/30/18 at 09:00 Divalproex Sodium (Depakote Er) 1,000 mg QHS PO Last administered on 04/30/18 20:21; Start 04/30/18 at 21:00; Stop 05/01/18 at 18:33; Status DC Buspirone HCl (Buspar) 10 mg TID PO Last administered on 05/20/18 19:11; Start 04/30/18 at 09:00 Levothyroxine Sodium (Synthroid) 50 mcg DAILY06 PO Last administered on at 05:35; Start 05/01/18 at 06:00 Divalproex Sodium (Depakote Er) 1,500 mg QHS PO Last administered on 19:10; Start 05/01/18 at 21:00 Risperidone (RisperDAL) 1 mg QHS PO Last administered on 05/03/18 21:23; Start 05/01/18 at 21:00; Stop 05/04/18 at 17:21; Status DC Risperidone (RisperDAL) 1 mg QHS PO Last administered on 05/20/18at 19:11; Start 05/04/18 at 21:00 Risperidone (RisperDAL) 0.25 mg QHS PO Last administered on 05/04/18at 20:07; Start 05/04/18 at 21:00; Stop 05/05/18 at 17:39; Status DC Olanzapine (ZyPREXA ZYDIS) 2.5 mg PRN Q2HR PRN PO PSYCHOSIS; Start 05/04/18 at 23:00 Risperidone (RisperDAL) 0.5 mg QHS PO Last administered on 05/16/18at 20:22; Start 05/05/18 at 21:00; Stop 05/17/18 at 16:20; Status DC Trazodone HCl (Desyrel) 50 mg PRN QHS PRN PO Insomnia; Start 05/06/18 at 22:30 Nicotine (Nicoderm Cq 7mg) 1 patch DAILY TD Last administered on 05/18/18at 08: 55; Start 05/13/18 at 09:00 Risperidone (RisperDAL) 0.75 mg QHS PO Last administered on 05/20/18at 19:10; Start 05/17/18 at 21:00 Active Scripts Active Reported Buspirone Hcl 10 Mg Tablet 10 Mg PO TID Baclofen 10 Mg Tablet 10 Mg PO QID Gabapentin 100 Mg Capsule 100 Mg PO QID Gabapentin 800 Mg Tablet 800 Mg PO QID Levothyroxine Sodium 50 Mcg Tablet 50 Mcg PO DAILYAC Klonopin (Clonazepam) 0.5 Mg Tablet 0.5 Mg PO BID92 Lactulose 20 Gm/30 Ml Solution 30 Ml PO TID Norvasc (Amlodipine Besylate) 10 Mg Tablet 10 Mg PO DAILY Oxybutynin Chloride 5 Mg Tablet 2.5 Mg PO BID Depakote Er (Divalproex Sodium) 500 Mg Tab.er.24h 1,000 Mg PO HS Klor-Con M20 (Potassium Chloride) 20 Meq Tab.er.prt 20 Meq PO DAILY Cymbalta (Duloxetine Hcl) 60 Mg Capsule.dr 60 Mg PO DAILY Multivitamin with Iron Tablet (Multivitamin/Iron/Folic Acid) 1 Each Tablet 1 Tab PO DAILY Flomax (Tamsulosin Hcl) 0.4 Mg Cap.er.24h 0.8 Mg PO DAILY Trazodone Hcl 50 Mg Tablet 50 Mg PO HS Olanzapine 5 Mg Tablet 5 Mg PO HS Remeron (Mirtazapine) 15 Mg Tablet 7.5 Mg PO HS Bisacodyl 10 Mg Supp.rect 10 Mg RC PRN DAILY PRN Tylenol (Acetaminophen) 325 Mg Tablet 650 Mg PO PRN Q6HRS PRN I have reviewed the current psychotropics carefully including drug interactions. Risk benefit ratio favors no change other than as noted in my dictated progress note. Diagnosis: Problems: (1) Adult general medical examination (2) Anxiety disorder (3) Impulse control disorder (4) Schizophrenia, paranoid, chronic with acute exacerbation CATHY EMERY MD May 20, 2018 20:48
[2018-05-21] MEDS: LEVOTHYROXINE 50 MCG TABLET PO SCH (05:21)
[2018-05-21 06:02] LABS: BASO # 0.1 x10^3/uL (0.0-0.2); BASO % 1 % (0-3); EOS # 0.4 x10^3/uL (0.0-0.7); EOS % 6 % (0-3); HEMATOCRIT 41.3 % (39.0-53.0); HEMOGLOBIN 14.2 g/dL (13.0-17.5); LYMPH # 1.8 x10^3/uL (1.0-4.8); LYMPH % 28 % (24-48); MEAN CORPUSCULAR HEMOGLOBIN 31 pg (25-35); MEAN CORPUSCULAR HGB CONC 34 g/dL (31-37); MEAN CORPUSCULAR VOLUME 90 fL (79-100); MONO # 0.6 x10^3/uL (0.0-1.1); MONO % 10 % (0-9); NEUT # 3.7 x10^3uL (1.8-7.7); NEUT % 56 % (31-73); PLATELET COUNT 296 x10^3/uL (140-400); RED BLOOD COUNT 4.61 x10^6/uL (4.30-5.70); RED CELL DISTRIBUTION WIDTH 13.7 % (11.5-14.5); WHITE BLOOD COUNT 6.6 x10^3/uL (4.0-11.0)
[2018-05-21 06:12] VITALS: BP 145/85
[2018-05-21 06:20] LABS: ALBUMIN 3.4 g/dL (3.4-5.0); ALBUMIN/GLOBULIN RATIO 1.1 (1.0-1.7); CALCIUM 8.3 mg/dL (8.5-10.1); CREATININE 0.5 mg/dL (0.7-1.3); GFR 171.4; POTASSIUM 4.3 mmol/L (3.5-5.1); TOTAL BILIRUBIN 0.4 mg/dL (0.2-1.0); TOTAL PROTEIN 6.5 g/dL (6.4-8.2)
[2018-05-21] MEDS: LACTULOSE 20 GM/30 ML SOLUTION. PO SCH ×4 (07:58→19:19)
[2018-05-21] MEDS: NICOTINE 7MG PATCH. TD SCH ×2 (07:59→09:00)
[2018-05-21] MEDS: BACLOFEN 10 MG TABLET PO SCH ×4 (07:59→19:12)
[2018-05-21] MEDS: MULTIVITAMIN with MINERAL TABLET. PO SCH (07:59)
[2018-05-21] MEDS: TAMSULOSIN 0.4 MG CAP.ER.24H. PO SCH (07:59)
[2018-05-21] MEDS: POTASSIUM CHLORIDE 20 MEQ TABLET.ER. PO SCH (07:59)
[2018-05-21] MEDS: GABAPENTIN 400 MG CAPSULE. PO SCH ×4 (07:59→19:13)
[2018-05-21] MEDS: clonazePAM 0.5 MG TABLET PO SCH ×2 (07:59→13:00)
[2018-05-21] MEDS: busPIRone 10 MG TABLET. PO SCH ×3 (08:00→19:18)
[2018-05-21] MEDS: amLODIPine BESYLATE 10 MG TABLET PO SCH (08:00)
[2018-05-21] MEDS: GABAPENTIN 100 MG CAPSULE. PO SCH ×4 (08:00→19:18)
[2018-05-21] MEDS: OXYBUTYNIN CHLORIDE 5 MG TABLET PO SCH ×2 (08:00→19:16)
[2018-05-21] MEDS: DULoxetine HCL 60 MG CAPSULE.DR PO SCH (08:01)
[2018-05-21 15:50] VITALS: BP 120/81
[2018-05-21] MEDS: DIVALPROEX ER 500 MG TAB.ER.24H PO SCH (19:12)
[2018-05-21] MEDS: traZODone 50 MG TABLET. PO SCH (19:12)
[2018-05-21] MEDS: risperiDONE 0.25 MG TABLET. PO SCH (19:15)
[2018-05-21] MEDS: MIRTAZAPINE 7.5 MG TABLET. PO SCH (19:15)
[2018-05-21] MEDS: risperiDONE 1 MG TABLET. PO SCH (19:18)
--- NOTE | 2018-05-21 20:51 | PDOC ---
Exam Note: Nguyễn Note: Please also refer to the separate dictated note~for this date of service dictated separately.~Patient seen individually. Discussed the patient with Nursing staff reviewed the chart.~Reviewed interim history and current functioning. Reviewed vital signs,~Labs/ Radiology~and current medications noted below. Continue current treatment with the changes noted in the dictated addendum note Assessment: Vital Signs: Vital Signs Date Time Temp Pulse Resp B/P (MAP) Pulse Ox O2 Delivery O2 Flow Rate FiO2 05/21/18 15:50 97.4 82 20 120/81 (94) 98 Room Air I&O Intake and Output 05/21/18 07:00 Intake Total 2060 ml Balance 2060 ml Intake Oral 2060 ml # Bowel Movements 1 Labs: Laboratory Tests Test 05/21/18 05:52 White Blood Count 6.6 x10^3/uL (4.0-11.0) Red Blood Count 4.61 x10^6/uL (4.30-5.70) Hemoglobin 14.2 g/dL (13.0-17.5) Hematocrit 41.3 % (39.0-53.0) Mean Corpuscular Volume 90 fL (79-100) Mean Corpuscular Hemoglobin 31 pg (25-35) Mean Corpuscular Hemoglobin Concent 34 g/dL (31-37) Red Cell Distribution Width 13.7 % (11.5-14.5) Platelet Count 296 x10^3/uL (140-400) Neutrophils (%) (Auto) 56 % (31-73) Lymphocytes (%) (Auto) 28 % (24-48) Monocytes (%) (Auto) 10 % (0-9) H Eosinophils (%) (Auto) 6 % (0-3) H Basophils (%) (Auto) 1 % (0-3) Neutrophils # (Auto) 3.7 x10^3uL (1.8-7.7) Lymphocytes # (Auto) 1.8 x10^3/uL (1.0-4.8) Monocytes # (Auto) 0.6 x10^3/uL (0.0-1.1) Eosinophils # (Auto) 0.4 x10^3/uL (0.0-0.7) Basophils # (Auto) 0.1 x10^3/uL (0.0-0.2) Sodium Level 133 mmol/L (136-145) L Potassium Level 4.3 mmol/L (3.5-5.1) Chloride Level 97 mmol/L (98-107) L Carbon Dioxide Level 32 mmol/L (21-32) Anion Gap 4 (6-14) L Blood Urea Nitrogen 10 mg/dL (8-26) Creatinine 0.5 mg/dL (0.7-1.3) L Estimated GFR (Cockcroft-Gault) 171.4 BUN/Creatinine Ratio 20 (6-20) Glucose Level 86 mg/dL (70-99) Calcium Level 8.3 mg/dL (8.5-10.1) L Total Bilirubin 0.4 mg/dL (0.2-1.0) Aspartate Amino Transferase (AST) 12 U/L (15-37) L Alanine Aminotransferase (ALT) 23 U/L (16-63) Alkaline Phosphatase 86 U/L (46-116) Total Protein 6.5 g/dL (6.4-8.2) Albumin 3.4 g/dL (3.4-5.0) Albumin/Globulin Ratio 1.1 (1.0-1.7) Current Medications: Meds: Current Medications Clonazepam (KlonoPIN) 0.5 mg BID92 PO Last administered on 05/21/18at 13:00; Start 04/30/18 at 09:00 Non-Formulary Medication (Buspirone Hcl ) 10 mg TID PO ; Start 04/30/18 at 09:00 ; Stop 04/30/18 at 09:00; Status DC Non-Formulary Medication (Divalproex Sodium (Depakote Er)) 1,000 mg HS PO ; Start 04/30/18 at 21:00; Stop 04/30/18 at 21:00; Status DC Non-Formulary Medication (Duloxetine Hcl (Cymbalta)) 60 mg DAILY PO ; Start at 09:00; Stop 04/30/18 at 09:00; Status DC Non-Formulary Medication (Mirtazapine (Remeron)) 7.5 mg HS PO ; Start 04/30/18 at 21:00; Stop 04/30/18 at 21:00; Status DC Non-Formulary Medication (Olanzapine ) 5 mg HS PO ; Start 04/30/18 at 21:00; Stop 04/30/18 at 21:00; Status DC Non-Formulary Medication (Trazodone Hcl ) 50 mg HS PO ; Start 04/30/18 at 21:00 ; Stop 04/30/18 at 21:00; Status DC Acetaminophen (Tylenol) 650 mg PRN Q6HRS PRN PO PAIN / TEMP; Start 04/29/18 at 23:45 Gabapentin (Neurontin) 100 mg QID PO ; Start 04/30/18 at 09:00; Stop 04/30/18 at 09:00; Status DC Lactulose (Lactulose) 20 gm TID PO Last administered on 05/20/18at 19:13; Start 04/30/18 at 09:00 Oxybutynin Chloride (Ditropan) 2.5 mg BID PO Last administered on 05/21/18at 19 :16; Start 04/30/18 at 09:00 Potassium Chloride (Klor-Con) 20 meq DAILY PO Last administered on 05/21/18at 07:59; Start 04/30/18 at 09:00 Tamsulosin HCl (Flomax) 0.8 mg DAILY PO Last administered on 05/21/18at 07:59; Start 04/30/18 at 09:00 Non-Formulary Medication (Amlodipine Besylate (Norvasc)) 10 mg DAILY PO ; Start 04/30/18 at 09:00; Stop 04/30/18 at 09:00; Status DC Non-Formulary Medication (Baclofen ) 10 mg QID PO ; Start 04/30/18 at 09:00; Stop 04/30/18 at 09:00; Status DC Non-Formulary Medication (Bisacodyl ) 10 mg PRN DAILY PRN RC CONSTIPATION; Start 04/29/18 at 23:45; Stop 04/30/18 at 01:39; Status DC Non-Formulary Medication (Gabapentin ) 800 mg QID PO ; Start 04/30/18 at 09:00; Stop 04/30/18 at 09:00; Status DC Non-Formulary Medication (Levothyroxine Sodium ) 50 mcg DAILYAC PO ; Start 04/30 at 07:30; Stop 04/30/18 at 07:30; Status DC Non-Formulary Medication (Multivitamin/ Iron/Folic Acid (Multivitamin with Iron Tablet)) 1 tab DAILY PO ; Start 04/30/18 at 09:00; Stop 04/30/18 at 09:00; Status DC Multi-Ingredient Ointment (Analgesic [place]) 1 jing PRN QID PRN TP MUSCLE PAIN; Start 04/29/18 at 23:45 Al Hydroxide/Mg Hydroxide (Mylanta Plus Xs) 15 ml PRN AFTMEALHC PRN PO DYSPEPSIA; Start 04/29/18 at 23:45 Magnesium Hydroxide (Milk Of Magnesia) 2,400 mg PRN QHS PRN PO CONSTIPATION; Start 04/29/18 at 23:45 Nicotine (Nicoderm Cq 14mg) 1 patch DAILY TD Last administered on 05/11/18at 09: 22; Start 04/30/18 at 09:00; Stop 05/12/18 at 11:26; Status DC Gabapentin (Neurontin) 100 mg QID PO Last administered on 05/21/18at 19:18; Start 04/30/18 at 00:30 Non-Formulary Medication (Baclofen ) 10 mg QID PO ; Start 04/30/18 at 00:00; Stop 04/30/18 at 01:39; Status DC Non-Formulary Medication (Buspirone Hcl ) 10 mg TID PO ; Start 04/30/18 at 00:00 ; Stop 04/30/18 at 01:39; Status DC Non-Formulary Medication (Divalproex Sodium (Depakote Er)) 1,000 mg HS PO ; Start 04/30/18 at 00:00; Stop 04/30/18 at 01:39; Status DC Non-Formulary Medication (Gabapentin ) 800 mg QID PO ; Start 04/30/18 at 00:00; Stop 04/30/18 at 01:39; Status DC Non-Formulary Medication (Mirtazapine (Remeron)) 7.5 mg HS PO ; Start 04/30/18 at 00:00; Stop 04/30/18 at 01:39; Status DC Non-Formulary Medication (Olanzapine ) 5 mg HS PO ; Start 04/30/18 at 00:00; Stop 04/30/18 at 01:39; Status DC Non-Formulary Medication (Trazodone Hcl ) 50 mg HS PO ; Start 04/30/18 at 00:00 ; Stop 04/30/18 at 01:39; Status DC Bisacodyl (Dulcolax Supp) 10 mg PRN DAILY PRN [place] CONSTIPATION; Start 04/30/18 at 01:45 Multivitamins/ Calcium (Thera-M Plus) 1 tab DAILY PO Last administered on 05/21at 07:59; Start 04/30/18 at 09:00 Amlodipine Besylate (Norvasc) 10 mg DAILY PO Last administered on 05/21/18 08 :00; Start 04/30/18 at 09:00 Levothyroxine Sodium (Synthroid) 50 mcg DAILY07 PO Last administered on at 05:52; Start 04/30/18 at 07:00; Stop 04/30/18 at 15:49; Status DC Gabapentin (Neurontin) 800 mg QID PO Last administered on 05/21/18 19:13; Start 04/30/18 at 09:00 Baclofen (Lioresal) 10 mg QID PO Last administered on 05/21/18 19:12; Start 04/30/18 at 09:00 Mirtazapine (Remeron) 7.5 mg QHS PO Last administered on 05/21/18 19:15; Start 04/30/18 at 21:00 Olanzapine (ZyPREXA) 5 mg HS PO Last administered on 04/30/18 20:21; Start at 21:00; Stop 05/01/18 at 18:33; Status DC Trazodone HCl (Desyrel) 50 mg QHS PO Last administered on 05/21/18 19:12; Start 04/30/18 at 21:00 Duloxetine HCl (Cymbalta) 60 mg DAILY PO Last administered on 05/21/18at 08:01 ; Start 04/30/18 at 09:00 Divalproex Sodium (Depakote Er) 1,000 mg QHS PO Last administered on 04/30/18 20:21; Start 04/30/18 at 21:00; Stop 05/01/18 at 18:33; Status DC Buspirone HCl (Buspar) 10 mg TID PO Last administered on 05/21/18 19:18; Start 04/30/18 at 09:00 Levothyroxine Sodium (Synthroid) 50 mcg DAILY06 PO Last administered on 05:21; Start 05/01/18 at 06:00 Divalproex Sodium (Depakote Er) 1,500 mg QHS PO Last administered on 19:12; Start 05/01/18 at 21:00 Risperidone (RisperDAL) 1 mg QHS PO Last administered on 05/03/18at 21:23; Start 05/01/18 at 21:00; Stop 05/04/18 at 17:21; Status DC Risperidone (RisperDAL) 1 mg QHS PO Last administered on 05/21/18 19:18; Start 05/04/18 at 21:00 Risperidone (RisperDAL) 0.25 mg QHS PO Last administered on 05/04/18at 20:07; Start 05/04/18 at 21:00; Stop 05/05/18 at 17:39; Status DC Olanzapine (ZyPREXA ZYDIS) 2.5 mg PRN Q2HR PRN PO PSYCHOSIS Last administered on 05/21/18 17:03; Start 05/04/18 at 23:00 Risperidone (RisperDAL) 0.5 mg QHS PO Last administered on 05/16/18 20:22; Start 05/05/18 at 21:00; Stop 05/17/18 at 16:20; Status DC Trazodone HCl (Desyrel) 50 mg PRN QHS PRN PO Insomnia; Start 05/06/18 at 22:30 Nicotine (Nicoderm Cq 7mg) 1 patch DAILY TD Last administered on 05/18/18 08: 55; Start 05/13/18 at 09:00 Risperidone (RisperDAL) 0.75 mg QHS PO Last administered on 05/21/18at 19:15; Start 05/17/18 at 21:00 Active Scripts Active Reported Buspirone Hcl 10 Mg Tablet 10 Mg PO TID Baclofen 10 Mg Tablet 10 Mg PO QID Gabapentin 100 Mg Capsule 100 Mg PO QID Gabapentin 800 Mg Tablet 800 Mg PO QID Levothyroxine Sodium 50 Mcg Tablet 50 Mcg PO DAILYAC Klonopin (Clonazepam) 0.5 Mg Tablet 0.5 Mg PO BID92 Lactulose 20 Gm/30 Ml Solution 30 Ml PO TID Norvasc (Amlodipine Besylate) 10 Mg Tablet 10 Mg PO DAILY Oxybutynin Chloride 5 Mg Tablet 2.5 Mg PO BID Depakote Er (Divalproex Sodium) 500 Mg Tab.er.24h 1,000 Mg PO HS Klor-Con M20 (Potassium Chloride) 20 Meq Tab.er.prt 20 Meq PO DAILY Cymbalta (Duloxetine Hcl) 60 Mg Capsule.dr 60 Mg PO DAILY Multivitamin with Iron Tablet (Multivitamin/Iron/Folic Acid) 1 Each Tablet 1 Tab PO DAILY Flomax (Tamsulosin Hcl) 0.4 Mg Cap.er.24h 0.8 Mg PO DAILY Trazodone Hcl 50 Mg Tablet 50 Mg PO HS Olanzapine 5 Mg Tablet 5 Mg PO HS Remeron (Mirtazapine) 15 Mg Tablet 7.5 Mg PO HS Bisacodyl 10 Mg Supp.rect 10 Mg RC PRN DAILY PRN Tylenol (Acetaminophen) 325 Mg Tablet 650 Mg PO PRN Q6HRS PRN I have reviewed the current psychotropics carefully including drug interactions. Risk benefit ratio favors no change other than as noted in my dictated progress note. Diagnosis: Problems: (1) Adult general medical examination (2) Anxiety disorder (3) Impulse control disorder (4) Schizophrenia, paranoid, chronic with acute exacerbation CATHY EMERY MD May 21, 2018 20:51
--- NOTE | 2018-05-21 21:02 | PN ---
DATE: 05/19/2018 This is a late entry for 05/19/2018 covers elements not covered in my initial note. SUBJECTIVE: I met with the patient in the evening. The patient slept 6 hours previous night, refuses nicotine patch, but psychotic symptoms are better. REVIEW OF SYSTEMS: Ambulation impaired with walker. No CV, , pulmonary, eye, ENT system symptoms on review. MENTAL STATUS EXAM: Reasonably oriented. Speech has some latency, coherent. Abstraction fair, computation impaired, unable to do serial 7's. Insight improved, language function intact. Mood and affect somewhat withdrawn. LABORATORY DATA: Reviewed. IMPRESSION: Schizoaffective disorder, bipolar type, mixed with psychotic features, in partial remission. PLAN: No change from initial note. MAN Ty EMERY MD DR: SARINA/nilda JOB#: [id number] / [id number]
--- NOTE | 2018-05-21 23:23 | PN ---
DATE: 05/20/2018 PSYCHIATRIC PROGRESS NOTE This late entry 05/20/2018 covers elements not covered in my initial note. SUBJECTIVE: Met with the patient in the evening, staffed at a treatment team meeting, meeting with the entire team in the morning. The patient has been refused from [facility]. [facility] will accept him, but family does not want this. Social service staffs are working with the family at alternate placements. In the meantime, he has been fairly cooperative on the unit. Psychotic symptoms are much improved. REVIEW OF SYSTEMS: Ambulation is impaired with walker. No CV, , pulmonary, eye, ENT system symptoms on review. MENTAL STATUS EXAM: Reasonably oriented. Speech is coherent, has some latency. Abstraction fair, computation is impaired, language function intact, attention span short. Mood and affect has improved. IMPRESSION: Unchanged from initial note. PLAN: No change from initial note. MAN Ty EMERY MD DR: SARINA/nilda JOB#: [id number] / [id number]
[2018-05-22 05:51] VITALS: BP 100/66
[2018-05-22] MEDS: DULoxetine HCL 60 MG CAPSULE.DR PO SCH (06:27)
[2018-05-22] MEDS: amLODIPine BESYLATE 10 MG TABLET PO SCH (06:28)
[2018-05-22] MEDS: LEVOTHYROXINE 50 MCG TABLET PO SCH (06:28)
[2018-05-22] MEDS: clonazePAM 0.5 MG TABLET PO SCH ×2 (06:28→13:31)
[2018-05-22] MEDS: OXYBUTYNIN CHLORIDE 5 MG TABLET PO SCH ×2 (06:29→19:51)
[2018-05-22] MEDS: GABAPENTIN 400 MG CAPSULE. PO SCH ×4 (06:30→19:49)
[2018-05-22] MEDS: TAMSULOSIN 0.4 MG CAP.ER.24H. PO SCH (06:30)
[2018-05-22] MEDS: MULTIVITAMIN with MINERAL TABLET. PO SCH (06:30)
[2018-05-22] MEDS: GABAPENTIN 100 MG CAPSULE. PO SCH ×4 (06:30→19:51)
[2018-05-22] MEDS: BACLOFEN 10 MG TABLET PO SCH ×4 (06:30→19:51)
[2018-05-22] MEDS: POTASSIUM CHLORIDE 20 MEQ TABLET.ER. PO SCH (06:30)
[2018-05-22] MEDS: NICOTINE 7MG PATCH. TD SCH (06:31)
[2018-05-22] MEDS: LACTULOSE 20 GM/30 ML SOLUTION. PO SCH ×3 (06:31→19:57)
[2018-05-22] MEDS: busPIRone 10 MG TABLET. PO SCH ×3 (06:31→19:51)
[2018-05-22 09:18] VITALS: BP 154/90
[2018-05-22 16:38] VITALS: BP 112/78
--- NOTE | 2018-05-22 19:40 | PN ---
DATE: 05/21/2018 PSYCHIATRIC PROGRESS NOTE This late entry 05/21/2018 covers elements not covered in my initial note. SUBJECTIVE: I met with the patient in the evening. The patient slept 6-3/4 hours previous night, compliant with his medications, refused the lactulose. REVIEW OF SYSTEMS: Ambulation impaired. No CV, , pulmonary, eye, system symptoms on review. MENTAL STATUS EXAM: Oriented reasonably. Speech has some latency, coherent. Abstraction fair, computation impaired, language function intact, attention span short. Mood and affect somewhat withdrawn, but improved. No clear psychotic symptoms. LABORATORY DATA: Reviewed. IMPRESSION: Unchanged from initial note. PLAN: No change from initial note. MAN Ty EMERY MD DR: SARINA/nilda JOB#: [id number] / [id number]
[2018-05-22] MEDS: risperiDONE 0.25 MG TABLET. PO SCH (19:49)
[2018-05-22] MEDS: traZODone 50 MG TABLET. PO SCH (19:49)
[2018-05-22] MEDS: risperiDONE 1 MG TABLET. PO SCH (19:50)
[2018-05-22] MEDS: DIVALPROEX ER 500 MG TAB.ER.24H PO SCH (19:50)
[2018-05-22] MEDS: MIRTAZAPINE 7.5 MG TABLET. PO SCH (19:50)
--- NOTE | 2018-05-22 22:48 | PDOC ---
Exam Note: Nguyễn Note: Please also refer to the separate dictated note~for this date of service dictated separately.~Patient seen individually. Discussed the patient with Nursing staff reviewed the chart.~Reviewed interim history and current functioning. Reviewed vital signs,~Labs/ Radiology~and current medications noted below. Continue current treatment with the changes noted in the dictated addendum note Assessment: Vital Signs: Vital Signs Date Time Temp Pulse Resp B/P (MAP) Pulse Ox O2 Delivery O2 Flow Rate FiO2 05/22/18 16:38 98.6 88 18 112/78 (89) 96 Room Air I&O Intake and Output 05/22/18 07:00 Intake Total 1920 ml Balance 1920 ml Intake Oral 1920 ml Current Medications: Meds: Current Medications Clonazepam (KlonoPIN) 0.5 mg BID92 PO Last administered on 05/22/18at 13:31; Start 04/30/18 at 09:00 Non-Formulary Medication (Buspirone Hcl ) 10 mg TID PO ; Start 04/30/18 at 09:00 ; Stop 04/30/18 at 09:00; Status DC Non-Formulary Medication (Divalproex Sodium (Depakote Er)) 1,000 mg HS PO ; Start 04/30/18 at 21:00; Stop 04/30/18 at 21:00; Status DC Non-Formulary Medication (Duloxetine Hcl (Cymbalta)) 60 mg DAILY PO ; Start at 09:00; Stop 04/30/18 at 09:00; Status DC Non-Formulary Medication (Mirtazapine (Remeron)) 7.5 mg HS PO ; Start 04/30/18 at 21:00; Stop 04/30/18 at 21:00; Status DC Non-Formulary Medication (Olanzapine ) 5 mg HS PO ; Start 04/30/18 at 21:00; Stop 04/30/18 at 21:00; Status DC Non-Formulary Medication (Trazodone Hcl ) 50 mg HS PO ; Start 04/30/18 at 21:00 ; Stop 04/30/18 at 21:00; Status DC Acetaminophen (Tylenol) 650 mg PRN Q6HRS PRN PO PAIN / TEMP; Start 04/29/18 at 23:45 Gabapentin (Neurontin) 100 mg QID PO ; Start 04/30/18 at 09:00; Stop 04/30/18 at 09:00; Status DC Lactulose (Lactulose) 20 gm TID PO Last administered on 05/20/18at 19:13; Start 04/30/18 at 09:00 Oxybutynin Chloride (Ditropan) 2.5 mg BID PO Last administered on 05/22/18at 19 :51; Start 04/30/18 at 09:00 Potassium Chloride (Klor-Con) 20 meq DAILY PO Last administered on 05/22/18at 06:30; Start 04/30/18 at 09:00 Tamsulosin HCl (Flomax) 0.8 mg DAILY PO Last administered on 05/22/18at 06:30; Start 04/30/18 at 09:00 Non-Formulary Medication (Amlodipine Besylate (Norvasc)) 10 mg DAILY PO ; Start 04/30/18 at 09:00; Stop 04/30/18 at 09:00; Status DC Non-Formulary Medication (Baclofen ) 10 mg QID PO ; Start 04/30/18 at 09:00; Stop 04/30/18 at 09:00; Status DC Non-Formulary Medication (Bisacodyl ) 10 mg PRN DAILY PRN RC CONSTIPATION; Start 04/29/18 at 23:45; Stop 04/30/18 at 01:39; Status DC Non-Formulary Medication (Gabapentin ) 800 mg QID PO ; Start 04/30/18 at 09:00; Stop 04/30/18 at 09:00; Status DC Non-Formulary Medication (Levothyroxine Sodium ) 50 mcg DAILYAC PO ; Start 04/30 at 07:30; Stop 04/30/18 at 07:30; Status DC Non-Formulary Medication (Multivitamin/ Iron/Folic Acid (Multivitamin with Iron Tablet)) 1 tab DAILY PO ; Start 04/30/18 at 09:00; Stop 04/30/18 at 09:00; Status DC Multi-Ingredient Ointment (Analgesic [place]) 1 jing PRN QID PRN TP MUSCLE PAIN; Start 04/29/18 at 23:45 Al Hydroxide/Mg Hydroxide (Mylanta Plus Xs) 15 ml PRN AFTMEALHC PRN PO DYSPEPSIA; Start 04/29/18 at 23:45 Magnesium Hydroxide (Milk Of Magnesia) 2,400 mg PRN QHS PRN PO CONSTIPATION; Start 04/29/18 at 23:45 Nicotine (Nicoderm Cq 14mg) 1 patch DAILY TD Last administered on 05/11/18at 09: 22; Start 04/30/18 at 09:00; Stop 05/12/18 at 11:26; Status DC Gabapentin (Neurontin) 100 mg QID PO Last administered on 05/22/18at 19:51; Start 04/30/18 at 00:30 Non-Formulary Medication (Baclofen ) 10 mg QID PO ; Start 04/30/18 at 00:00; Stop 04/30/18 at 01:39; Status DC Non-Formulary Medication (Buspirone Hcl ) 10 mg TID PO ; Start 04/30/18 at 00:00 ; Stop 04/30/18 at 01:39; Status DC Non-Formulary Medication (Divalproex Sodium (Depakote Er)) 1,000 mg HS PO ; Start 04/30/18 at 00:00; Stop 04/30/18 at 01:39; Status DC Non-Formulary Medication (Gabapentin ) 800 mg QID PO ; Start 04/30/18 at 00:00; Stop 04/30/18 at 01:39; Status DC Non-Formulary Medication (Mirtazapine (Remeron)) 7.5 mg HS PO ; Start 04/30/18 at 00:00; Stop 04/30/18 at 01:39; Status DC Non-Formulary Medication (Olanzapine ) 5 mg HS PO ; Start 04/30/18 at 00:00; Stop 04/30/18 at 01:39; Status DC Non-Formulary Medication (Trazodone Hcl ) 50 mg HS PO ; Start 04/30/18 at 00:00 ; Stop 04/30/18 at 01:39; Status DC Bisacodyl (Dulcolax Supp) 10 mg PRN DAILY PRN [place] CONSTIPATION; Start 04/30/18 at 01:45 Multivitamins/ Calcium (Thera-M Plus) 1 tab DAILY PO Last administered on 05/22at 06:30; Start 04/30/18 at 09:00 Amlodipine Besylate (Norvasc) 10 mg DAILY PO Last administered on 05/22/18at 06 :28; Start 04/30/18 at 09:00 Levothyroxine Sodium (Synthroid) 50 mcg DAILY07 PO Last administered on at 05:52; Start 04/30/18 at 07:00; Stop 04/30/18 at 15:49; Status DC Gabapentin (Neurontin) 800 mg QID PO Last administered on 05/22/18 19:49; Start 04/30/18 at 09:00 Baclofen (Lioresal) 10 mg QID PO Last administered on 05/22/18 19:51; Start 04/30/18 at 09:00 Mirtazapine (Remeron) 7.5 mg QHS PO Last administered on 05/22/18 19:50; Start 04/30/18 at 21:00 Olanzapine (ZyPREXA) 5 mg HS PO Last administered on 04/30/18 20:21; Start at 21:00; Stop 05/01/18 at 18:33; Status DC Trazodone HCl (Desyrel) 50 mg QHS PO Last administered on 05/22/18 19:49; Start 04/30/18 at 21:00 Duloxetine HCl (Cymbalta) 60 mg DAILY PO Last administered on 05/22/18 06:27 ; Start 04/30/18 at 09:00 Divalproex Sodium (Depakote Er) 1,000 mg QHS PO Last administered on 04/30/18 20:21; Start 04/30/18 at 21:00; Stop 05/01/18 at 18:33; Status DC Buspirone HCl (Buspar) 10 mg TID PO Last administered on 05/22/18 19:51; Start 04/30/18 at 09:00 Levothyroxine Sodium (Synthroid) 50 mcg DAILY06 PO Last administered on 06:28; Start 05/01/18 at 06:00 Divalproex Sodium (Depakote Er) 1,500 mg QHS PO Last administered on 19:50; Start 05/01/18 at 21:00 Risperidone (RisperDAL) 1 mg QHS PO Last administered on 05/03/18 21:23; Start 05/01/18 at 21:00; Stop 05/04/18 at 17:21; Status DC Risperidone (RisperDAL) 1 mg QHS PO Last administered on 05/22/18at 19:50; Start 05/04/18 at 21:00 Risperidone (RisperDAL) 0.25 mg QHS PO Last administered on 05/04/18at 20:07; Start 05/04/18 at 21:00; Stop 05/05/18 at 17:39; Status DC Olanzapine (ZyPREXA ZYDIS) 2.5 mg PRN Q2HR PRN PO PSYCHOSIS Last administered on 05/21/18at 17:03; Start 05/04/18 at 23:00 Risperidone (RisperDAL) 0.5 mg QHS PO Last administered on 05/16/18at 20:22; Start 05/05/18 at 21:00; Stop 05/17/18 at 16:20; Status DC Trazodone HCl (Desyrel) 50 mg PRN QHS PRN PO Insomnia; Start 05/06/18 at 22:30 Nicotine (Nicoderm Cq 7mg) 1 patch DAILY TD Last administered on 05/18/18at 08: 55; Start 05/13/18 at 09:00 Risperidone (RisperDAL) 0.75 mg QHS PO Last administered on 05/22/18at 19:49; Start 05/17/18 at 21:00 Active Scripts Active Reported Buspirone Hcl 10 Mg Tablet 10 Mg PO TID Baclofen 10 Mg Tablet 10 Mg PO QID Gabapentin 100 Mg Capsule 100 Mg PO QID Gabapentin 800 Mg Tablet 800 Mg PO QID Levothyroxine Sodium 50 Mcg Tablet 50 Mcg PO DAILYAC Klonopin (Clonazepam) 0.5 Mg Tablet 0.5 Mg PO BID92 Lactulose 20 Gm/30 Ml Solution 30 Ml PO TID Norvasc (Amlodipine Besylate) 10 Mg Tablet 10 Mg PO DAILY Oxybutynin Chloride 5 Mg Tablet 2.5 Mg PO BID Depakote Er (Divalproex Sodium) 500 Mg Tab.er.24h 1,000 Mg PO HS Klor-Con M20 (Potassium Chloride) 20 Meq Tab.er.prt 20 Meq PO DAILY Cymbalta (Duloxetine Hcl) 60 Mg Capsule.dr 60 Mg PO DAILY Multivitamin with Iron Tablet (Multivitamin/Iron/Folic Acid) 1 Each Tablet 1 Tab PO DAILY Flomax (Tamsulosin Hcl) 0.4 Mg Cap.er.24h 0.8 Mg PO DAILY Trazodone Hcl 50 Mg Tablet 50 Mg PO HS Olanzapine 5 Mg Tablet 5 Mg PO HS Remeron (Mirtazapine) 15 Mg Tablet 7.5 Mg PO HS Bisacodyl 10 Mg Supp.rect 10 Mg RC PRN DAILY PRN Tylenol (Acetaminophen) 325 Mg Tablet 650 Mg PO PRN Q6HRS PRN I have reviewed the current psychotropics carefully including drug interactions. Risk benefit ratio favors no change other than as noted in my dictated progress note. Diagnosis: Problems: (1) Adult general medical examination (2) Anxiety disorder (3) Impulse control disorder (4) Schizophrenia, paranoid, chronic with acute exacerbation CATHY EMERY MD May 22, 2018 22:48
[2018-05-23] MEDS: LEVOTHYROXINE 50 MCG TABLET PO SCH (05:48)
[2018-05-23 06:26] VITALS: BP 115/79
[2018-05-23] MEDS: busPIRone 10 MG TABLET. PO SCH ×3 (08:34→19:47)
[2018-05-23] MEDS: DULoxetine HCL 60 MG CAPSULE.DR PO SCH (08:35)
[2018-05-23] MEDS: OXYBUTYNIN CHLORIDE 5 MG TABLET PO SCH ×2 (08:35→19:49)
[2018-05-23] MEDS: TAMSULOSIN 0.4 MG CAP.ER.24H. PO SCH (08:35)
[2018-05-23] MEDS: POTASSIUM CHLORIDE 20 MEQ TABLET.ER. PO SCH (08:36)
[2018-05-23] MEDS: clonazePAM 0.5 MG TABLET PO SCH ×2 (08:36→13:43)
[2018-05-23] MEDS: LACTULOSE 20 GM/30 ML SOLUTION. PO SCH ×3 (08:36→19:49)
[2018-05-23] MEDS: GABAPENTIN 400 MG CAPSULE. PO SCH ×4 (08:36→19:48)
[2018-05-23] MEDS: BACLOFEN 10 MG TABLET PO SCH ×4 (08:36→19:48)
[2018-05-23] MEDS: GABAPENTIN 100 MG CAPSULE. PO SCH ×4 (08:36→19:48)
[2018-05-23] MEDS: MULTIVITAMIN with MINERAL TABLET. PO SCH (08:37)
[2018-05-23] MEDS: amLODIPine BESYLATE 10 MG TABLET PO SCH (08:37)
[2018-05-23] MEDS: NICOTINE 7MG PATCH. TD SCH (09:00)
[2018-05-23 16:13] VITALS: BP 100/67
[2018-05-23] MEDS: traZODone 50 MG TABLET. PO SCH (19:48)
[2018-05-23] MEDS: DIVALPROEX ER 500 MG TAB.ER.24H PO SCH (19:48)
[2018-05-23] MEDS: risperiDONE 0.25 MG TABLET. PO SCH (19:48)
[2018-05-23] MEDS: MIRTAZAPINE 7.5 MG TABLET. PO SCH (19:48)
[2018-05-23] MEDS: risperiDONE 1 MG TABLET. PO SCH (19:53)
--- NOTE | 2018-05-23 20:51 | PDOC ---
Exam Note: Nguyễn Note: Please also refer to the separate dictated note~for this date of service dictated separately.~Patient seen individually. Discussed the patient with Nursing staff reviewed the chart.~Reviewed interim history and current functioning. Reviewed vital signs,~Labs/ Radiology~and current medications noted below. Continue current treatment with the changes noted in the dictated addendum note Assessment: Vital Signs: Vital Signs Date Time Temp Pulse Resp B/P (MAP) Pulse Ox O2 Delivery O2 Flow Rate FiO2 05/23/18 16:13 97.5 80 20 100/67 (78) 96 05/22/18 16:38 Room Air I&O Intake and Output 05/23/18 07:00 Intake Total 1250 ml Balance 1250 ml Intake Oral 1250 ml Current Medications: Meds: Current Medications Clonazepam (KlonoPIN) 0.5 mg BID92 PO Last administered on 05/23/18at 13:43; Start 04/30/18 at 09:00 Non-Formulary Medication (Buspirone Hcl ) 10 mg TID PO ; Start 04/30/18 at 09:00 ; Stop 04/30/18 at 09:00; Status DC Non-Formulary Medication (Divalproex Sodium (Depakote Er)) 1,000 mg HS PO ; Start 04/30/18 at 21:00; Stop 04/30/18 at 21:00; Status DC Non-Formulary Medication (Duloxetine Hcl (Cymbalta)) 60 mg DAILY PO ; Start at 09:00; Stop 04/30/18 at 09:00; Status DC Non-Formulary Medication (Mirtazapine (Remeron)) 7.5 mg HS PO ; Start 04/30/18 at 21:00; Stop 04/30/18 at 21:00; Status DC Non-Formulary Medication (Olanzapine ) 5 mg HS PO ; Start 04/30/18 at 21:00; Stop 04/30/18 at 21:00; Status DC Non-Formulary Medication (Trazodone Hcl ) 50 mg HS PO ; Start 04/30/18 at 21:00 ; Stop 04/30/18 at 21:00; Status DC Acetaminophen (Tylenol) 650 mg PRN Q6HRS PRN PO PAIN / TEMP; Start 04/29/18 at 23:45 Gabapentin (Neurontin) 100 mg QID PO ; Start 04/30/18 at 09:00; Stop 04/30/18 at 09:00; Status DC Lactulose (Lactulose) 20 gm TID PO Last administered on 05/20/18at 19:13; Start 04/30/18 at 09:00 Oxybutynin Chloride (Ditropan) 2.5 mg BID PO Last administered on 05/23/18at 19 :49; Start 04/30/18 at 09:00 Potassium Chloride (Klor-Con) 20 meq DAILY PO Last administered on 05/23/18at 08:36; Start 04/30/18 at 09:00 Tamsulosin HCl (Flomax) 0.8 mg DAILY PO Last administered on 05/23/18at 08:35; Start 04/30/18 at 09:00 Non-Formulary Medication (Amlodipine Besylate (Norvasc)) 10 mg DAILY PO ; Start 04/30/18 at 09:00; Stop 04/30/18 at 09:00; Status DC Non-Formulary Medication (Baclofen ) 10 mg QID PO ; Start 04/30/18 at 09:00; Stop 04/30/18 at 09:00; Status DC Non-Formulary Medication (Bisacodyl ) 10 mg PRN DAILY PRN [place] CONSTIPATION; Start 04/29/18 at 23:45; Stop 04/30/18 at 01:39; Status DC Non-Formulary Medication (Gabapentin ) 800 mg QID PO ; Start 04/30/18 at 09:00; Stop 04/30/18 at 09:00; Status DC Non-Formulary Medication (Levothyroxine Sodium ) 50 mcg DAILYAC PO ; Start 04/30 at 07:30; Stop 04/30/18 at 07:30; Status DC Non-Formulary Medication (Multivitamin/ Iron/Folic Acid (Multivitamin with Iron Tablet)) 1 tab DAILY PO ; Start 04/30/18 at 09:00; Stop 04/30/18 at 09:00; Status DC Multi-Ingredient Ointment (Analgesic [place]) 1 jing PRN QID PRN TP MUSCLE PAIN; Start 04/29/18 at 23:45 Al Hydroxide/Mg Hydroxide (Mylanta Plus Xs) 15 ml PRN AFTMEALHC PRN PO DYSPEPSIA; Start 04/29/18 at 23:45 Magnesium Hydroxide (Milk Of Magnesia) 2,400 mg PRN QHS PRN PO CONSTIPATION; Start 04/29/18 at 23:45 Nicotine (Nicoderm Cq 14mg) 1 patch DAILY TD Last administered on 05/11/18at 09: 22; Start 04/30/18 at 09:00; Stop 05/12/18 at 11:26; Status DC Gabapentin (Neurontin) 100 mg QID PO Last administered on 05/23/18at 19:48; Start 04/30/18 at 00:30 Non-Formulary Medication (Baclofen ) 10 mg QID PO ; Start 04/30/18 at 00:00; Stop 04/30/18 at 01:39; Status DC Non-Formulary Medication (Buspirone Hcl ) 10 mg TID PO ; Start 04/30/18 at 00:00 ; Stop 04/30/18 at 01:39; Status DC Non-Formulary Medication (Divalproex Sodium (Depakote Er)) 1,000 mg HS PO ; Start 04/30/18 at 00:00; Stop 04/30/18 at 01:39; Status DC Non-Formulary Medication (Gabapentin ) 800 mg QID PO ; Start 04/30/18 at 00:00; Stop 04/30/18 at 01:39; Status DC Non-Formulary Medication (Mirtazapine (Remeron)) 7.5 mg HS PO ; Start 04/30/18 at 00:00; Stop 04/30/18 at 01:39; Status DC Non-Formulary Medication (Olanzapine ) 5 mg HS PO ; Start 04/30/18 at 00:00; Stop 04/30/18 at 01:39; Status DC Non-Formulary Medication (Trazodone Hcl ) 50 mg HS PO ; Start 04/30/18 at 00:00 ; Stop 04/30/18 at 01:39; Status DC Bisacodyl (Dulcolax Supp) 10 mg PRN DAILY PRN [place] CONSTIPATION; Start 04/30/18 at 01:45 Multivitamins/ Calcium (Thera-M Plus) 1 tab DAILY PO Last administered on 05/23at 08:37; Start 04/30/18 at 09:00 Amlodipine Besylate (Norvasc) 10 mg DAILY PO Last administered on 05/23/18 08 :37; Start 04/30/18 at 09:00 Levothyroxine Sodium (Synthroid) 50 mcg DAILY07 PO Last administered on 05:52; Start 04/30/18 at 07:00; Stop 04/30/18 at 15:49; Status DC Gabapentin (Neurontin) 800 mg QID PO Last administered on 05/23/18 19:48; Start 04/30/18 at 09:00 Baclofen (Lioresal) 10 mg QID PO Last administered on 05/23/18 19:48; Start 04/30/18 at 09:00 Mirtazapine (Remeron) 7.5 mg QHS PO Last administered on 05/23/18 19:48; Start 04/30/18 at 21:00 Olanzapine (ZyPREXA) 5 mg HS PO Last administered on 04/30/18 20:21; Start at 21:00; Stop 05/01/18 at 18:33; Status DC Trazodone HCl (Desyrel) 50 mg QHS PO Last administered on 05/23/18 19:48; Start 04/30/18 at 21:00 Duloxetine HCl (Cymbalta) 60 mg DAILY PO Last administered on 05/23/18 08:35 ; Start 04/30/18 at 09:00 Divalproex Sodium (Depakote Er) 1,000 mg QHS PO Last administered on 04/30/18 20:21; Start 04/30/18 at 21:00; Stop 05/01/18 at 18:33; Status DC Buspirone HCl (Buspar) 10 mg TID PO Last administered on 05/23/18 19:47; Start 04/30/18 at 09:00 Levothyroxine Sodium (Synthroid) 50 mcg DAILY06 PO Last administered on 05:48; Start 05/01/18 at 06:00 Divalproex Sodium (Depakote Er) 1,500 mg QHS PO Last administered on 19:48; Start 05/01/18 at 21:00 Risperidone (RisperDAL) 1 mg QHS PO Last administered on 05/03/18 21:23; Start 05/01/18 at 21:00; Stop 05/04/18 at 17:21; Status DC Risperidone (RisperDAL) 1 mg QHS PO Last administered on 05/23/18at 19:53; Start 05/04/18 at 21:00 Risperidone (RisperDAL) 0.25 mg QHS PO Last administered on 05/04/18at 20:07; Start 05/04/18 at 21:00; Stop 05/05/18 at 17:39; Status DC Olanzapine (ZyPREXA ZYDIS) 2.5 mg PRN Q2HR PRN PO PSYCHOSIS Last administered on 05/21/18at 17:03; Start 05/04/18 at 23:00 Risperidone (RisperDAL) 0.5 mg QHS PO Last administered on 05/16/18at 20:22; Start 05/05/18 at 21:00; Stop 05/17/18 at 16:20; Status DC Trazodone HCl (Desyrel) 50 mg PRN QHS PRN PO Insomnia; Start 05/06/18 at 22:30 Nicotine (Nicoderm Cq 7mg) 1 patch DAILY TD Last administered on 05/18/18at 08: 55; Start 05/13/18 at 09:00 Risperidone (RisperDAL) 0.75 mg QHS PO Last administered on 05/23/18at 19:48; Start 05/17/18 at 21:00 Active Scripts Active Reported Buspirone Hcl 10 Mg Tablet 10 Mg PO TID Baclofen 10 Mg Tablet 10 Mg PO QID Gabapentin 100 Mg Capsule 100 Mg PO QID Gabapentin 800 Mg Tablet 800 Mg PO QID Levothyroxine Sodium 50 Mcg Tablet 50 Mcg PO DAILYAC Klonopin (Clonazepam) 0.5 Mg Tablet 0.5 Mg PO BID92 Lactulose 20 Gm/30 Ml Solution 30 Ml PO TID Norvasc (Amlodipine Besylate) 10 Mg Tablet 10 Mg PO DAILY Oxybutynin Chloride 5 Mg Tablet 2.5 Mg PO BID Depakote Er (Divalproex Sodium) 500 Mg Tab.er.24h 1,000 Mg PO HS Klor-Con M20 (Potassium Chloride) 20 Meq Tab.er.prt 20 Meq PO DAILY Cymbalta (Duloxetine Hcl) 60 Mg Capsule.dr 60 Mg PO DAILY Multivitamin with Iron Tablet (Multivitamin/Iron/Folic Acid) 1 Each Tablet 1 Tab PO DAILY Flomax (Tamsulosin Hcl) 0.4 Mg Cap.er.24h 0.8 Mg PO DAILY Trazodone Hcl 50 Mg Tablet 50 Mg PO HS Olanzapine 5 Mg Tablet 5 Mg PO HS Remeron (Mirtazapine) 15 Mg Tablet 7.5 Mg PO HS Bisacodyl 10 Mg Supp.rect 10 Mg RC PRN DAILY PRN Tylenol (Acetaminophen) 325 Mg Tablet 650 Mg PO PRN Q6HRS PRN I have reviewed the current psychotropics carefully including drug interactions. Risk benefit ratio favors no change other than as noted in my dictated progress note. Diagnosis: Problems: (1) Adult general medical examination (2) Anxiety disorder (3) Impulse control disorder (4) Schizophrenia, paranoid, chronic with acute exacerbation CATHY EMERY MD May 23, 2018 20:51
--- NOTE | 2018-05-24 03:44 | PN ---
DATE: 05/22/2018 This is a late entry for 05/22/2018 covers elements not covered in my initial note. SUBJECTIVE: I met with the patient in the evening. The patient slept 7-1/4 hours previous evening. He is somewhat withdrawn, but much less psychotic. REVIEW OF SYSTEMS: Ambulation impaired with walker. No CV, , pulmonary, eye system symptoms on review. MENTAL STATUS EXAM: Oriented reasonably. Speech has some latency, low in volume, coherent, abstraction fair, computation impaired, language function intact. Mood and affect is improved. LABORATORY DATA: Reviewed. IMPRESSION: Unchanged from initial note. PLAN: No change from initial note. MAN Ty EMERY MD DR: SARINA/nilda JOB#: [id number] / [id number]
[2018-05-24] MEDS: LEVOTHYROXINE 50 MCG TABLET PO SCH (06:24)
[2018-05-24 06:36] VITALS: BP 102/70
[2018-05-24] MEDS: DULoxetine HCL 60 MG CAPSULE.DR PO SCH (08:04)
[2018-05-24] MEDS: busPIRone 10 MG TABLET. PO SCH ×3 (08:04→19:31)
[2018-05-24] MEDS: clonazePAM 0.5 MG TABLET PO SCH ×2 (08:05→14:28)
[2018-05-24] MEDS: OXYBUTYNIN CHLORIDE 5 MG TABLET PO SCH ×2 (08:05→19:34)
[2018-05-24] MEDS: TAMSULOSIN 0.4 MG CAP.ER.24H. PO SCH (08:05)
[2018-05-24] MEDS: POTASSIUM CHLORIDE 20 MEQ TABLET.ER. PO SCH (08:07)
[2018-05-24] MEDS: LACTULOSE 20 GM/30 ML SOLUTION. PO SCH ×3 (08:08→19:32)
[2018-05-24] MEDS: BACLOFEN 10 MG TABLET PO SCH ×4 (08:09→19:31)
[2018-05-24] MEDS: GABAPENTIN 100 MG CAPSULE. PO SCH ×4 (08:10→19:31)
[2018-05-24] MEDS: MULTIVITAMIN with MINERAL TABLET. PO SCH (08:11)
[2018-05-24] MEDS: GABAPENTIN 400 MG CAPSULE. PO SCH ×4 (08:11→19:30)
[2018-05-24] MEDS: NICOTINE 7MG PATCH. TD SCH (08:11)
[2018-05-24] MEDS: amLODIPine BESYLATE 10 MG TABLET PO SCH (09:00)
[2018-05-24 16:21] VITALS: BP 148/61
[2018-05-24] MEDS: traZODone 50 MG TABLET. PO SCH (19:29)
[2018-05-24] MEDS: risperiDONE 0.25 MG TABLET. PO SCH (19:30)
[2018-05-24] MEDS: MIRTAZAPINE 7.5 MG TABLET. PO SCH (19:30)
[2018-05-24] MEDS: DIVALPROEX ER 500 MG TAB.ER.24H PO SCH (19:31)
[2018-05-24] MEDS: risperiDONE 1 MG TABLET. PO SCH (19:31)
--- NOTE | 2018-05-24 23:07 | PN ---
DATE: 05/23/2018 PSYCHIATRIC PROGRESS NOTE This late entry 05/23/2018 covers elements not covered in my initial note. SUBJECTIVE: I met with the patient in the evening. The patient slept 7-1/4 hours previous evening. Remains somewhat withdrawn. Denies psychotic symptoms. REVIEW OF SYSTEMS: Ambulation impaired with walker. No CV, , pulmonary, eye, ENT system symptoms on review. MENTAL STATUS EXAM: Reasonably oriented. Speech is coherent, has some latency. Abstraction fair, computation impaired, language function intact, attention span short. Mood and affect still withdrawn, but improved. LABORATORY DATA: Reviewed. IMPRESSION: Unchanged from initial note. PLAN: No change from initial note. MAN Ty EMERY MD DR: SARINA/nilda JOB#: [id number] / [id number]
[2018-05-25] MEDS: LEVOTHYROXINE 50 MCG TABLET PO SCH (05:27)
[2018-05-25 06:29] VITALS: BP 132/86
[2018-05-25] MEDS: MULTIVITAMIN with MINERAL TABLET. PO SCH (08:03)
[2018-05-25] MEDS: LACTULOSE 20 GM/30 ML SOLUTION. PO SCH ×5 (08:03→19:04)
[2018-05-25] MEDS: BACLOFEN 10 MG TABLET PO SCH ×4 (08:03→19:03)
[2018-05-25] MEDS: TAMSULOSIN 0.4 MG CAP.ER.24H. PO SCH (08:04)
[2018-05-25] MEDS: NICOTINE 7MG PATCH. TD SCH ×2 (08:04→09:00)
[2018-05-25] MEDS: GABAPENTIN 100 MG CAPSULE. PO SCH ×4 (08:05→19:04)
[2018-05-25] MEDS: POTASSIUM CHLORIDE 20 MEQ TABLET.ER. PO SCH (08:05)
[2018-05-25] MEDS: DULoxetine HCL 60 MG CAPSULE.DR PO SCH (08:05)
[2018-05-25] MEDS: OXYBUTYNIN CHLORIDE 5 MG TABLET PO SCH ×2 (08:06→19:03)
[2018-05-25] MEDS: amLODIPine BESYLATE 10 MG TABLET PO SCH (08:06)
[2018-05-25] MEDS: busPIRone 10 MG TABLET. PO SCH ×3 (08:07→19:03)
[2018-05-25] MEDS: GABAPENTIN 400 MG CAPSULE. PO SCH ×4 (08:07→19:04)
[2018-05-25] MEDS: clonazePAM 0.5 MG TABLET PO SCH ×2 (08:09→14:14)
[2018-05-25 16:42] VITALS: BP 115/75
[2018-05-25] MEDS: risperiDONE 1 MG TABLET. PO SCH (19:03)
[2018-05-25] MEDS: traZODone 50 MG TABLET. PO SCH (19:03)
[2018-05-25] MEDS: MIRTAZAPINE 7.5 MG TABLET. PO SCH (19:03)
[2018-05-25] MEDS: DIVALPROEX ER 500 MG TAB.ER.24H PO SCH (19:04)
[2018-05-25] MEDS: risperiDONE 0.25 MG TABLET. PO SCH (19:04)
--- NOTE | 2018-05-25 23:20 | PDOC ---
Exam Note: Nguyễn Note: Please also refer to the separate dictated note~for this date of service dictated separately.~Patient seen individually. Discussed the patient with Nursing staff reviewed the chart.~Reviewed interim history and current functioning. Reviewed vital signs,~Labs/ Radiology~and current medications noted below. Continue current treatment with the changes noted in the dictated addendum note Assessment: Vital Signs: Vital Signs Date Time Temp Pulse Resp B/P (MAP) Pulse Ox O2 Delivery O2 Flow Rate FiO2 05/25/18 16:42 97.9 75 18 115/75 (88) 95 05/22/18 16:38 Room Air I&O Intake and Output 05/25/18 07:00 Intake Total 1320 ml Balance 1320 ml Intake Oral 1320 ml Current Medications: Meds: Current Medications Clonazepam (KlonoPIN) 0.5 mg BID92 PO Last administered on 05/25/18at 14:14; Start 04/30/18 at 09:00 Non-Formulary Medication (Buspirone Hcl ) 10 mg TID PO ; Start 04/30/18 at 09:00 ; Stop 04/30/18 at 09:00; Status DC Non-Formulary Medication (Divalproex Sodium (Depakote Er)) 1,000 mg HS PO ; Start 04/30/18 at 21:00; Stop 04/30/18 at 21:00; Status DC Non-Formulary Medication (Duloxetine Hcl (Cymbalta)) 60 mg DAILY PO ; Start at 09:00; Stop 04/30/18 at 09:00; Status DC Non-Formulary Medication (Mirtazapine (Remeron)) 7.5 mg HS PO ; Start 04/30/18 at 21:00; Stop 04/30/18 at 21:00; Status DC Non-Formulary Medication (Olanzapine ) 5 mg HS PO ; Start 04/30/18 at 21:00; Stop 04/30/18 at 21:00; Status DC Non-Formulary Medication (Trazodone Hcl ) 50 mg HS PO ; Start 04/30/18 at 21:00 ; Stop 04/30/18 at 21:00; Status DC Acetaminophen (Tylenol) 650 mg PRN Q6HRS PRN PO PAIN / TEMP; Start 04/29/18 at 23:45 Gabapentin (Neurontin) 100 mg QID PO ; Start 04/30/18 at 09:00; Stop 04/30/18 at 09:00; Status DC Lactulose (Lactulose) 20 gm TID PO Last administered on 05/20/18at 19:13; Start 04/30/18 at 09:00 Oxybutynin Chloride (Ditropan) 2.5 mg BID PO Last administered on 05/25/18at 19 :03; Start 04/30/18 at 09:00 Potassium Chloride (Klor-Con) 20 meq DAILY PO Last administered on 05/25/18at 08:05; Start 04/30/18 at 09:00 Tamsulosin HCl (Flomax) 0.8 mg DAILY PO Last administered on 05/25/18at 08:04; Start 04/30/18 at 09:00 Non-Formulary Medication (Amlodipine Besylate (Norvasc)) 10 mg DAILY PO ; Start 04/30/18 at 09:00; Stop 04/30/18 at 09:00; Status DC Non-Formulary Medication (Baclofen ) 10 mg QID PO ; Start 04/30/18 at 09:00; Stop 04/30/18 at 09:00; Status DC Non-Formulary Medication (Bisacodyl ) 10 mg PRN DAILY PRN RC CONSTIPATION; Start 04/29/18 at 23:45; Stop 04/30/18 at 01:39; Status DC Non-Formulary Medication (Gabapentin ) 800 mg QID PO ; Start 04/30/18 at 09:00; Stop 04/30/18 at 09:00; Status DC Non-Formulary Medication (Levothyroxine Sodium ) 50 mcg DAILYAC PO ; Start 04/30 at 07:30; Stop 04/30/18 at 07:30; Status DC Non-Formulary Medication (Multivitamin/ Iron/Folic Acid (Multivitamin with Iron Tablet)) 1 tab DAILY PO ; Start 04/30/18 at 09:00; Stop 04/30/18 at 09:00; Status DC Multi-Ingredient Ointment (Analgesic [place]) 1 jing PRN QID PRN TP MUSCLE PAIN; Start 04/29/18 at 23:45 Al Hydroxide/Mg Hydroxide (Mylanta Plus Xs) 15 ml PRN AFTMEALHC PRN PO DYSPEPSIA; Start 04/29/18 at 23:45 Magnesium Hydroxide (Milk Of Magnesia) 2,400 mg PRN QHS PRN PO CONSTIPATION; Start 04/29/18 at 23:45 Nicotine (Nicoderm Cq 14mg) 1 patch DAILY TD Last administered on 05/11/18at 09: 22; Start 04/30/18 at 09:00; Stop 05/12/18 at 11:26; Status DC Gabapentin (Neurontin) 100 mg QID PO Last administered on 05/25/18at 19:04; Start 04/30/18 at 00:30 Non-Formulary Medication (Baclofen ) 10 mg QID PO ; Start 04/30/18 at 00:00; Stop 04/30/18 at 01:39; Status DC Non-Formulary Medication (Buspirone Hcl ) 10 mg TID PO ; Start 04/30/18 at 00:00 ; Stop 04/30/18 at 01:39; Status DC Non-Formulary Medication (Divalproex Sodium (Depakote Er)) 1,000 mg HS PO ; Start 04/30/18 at 00:00; Stop 04/30/18 at 01:39; Status DC Non-Formulary Medication (Gabapentin ) 800 mg QID PO ; Start 04/30/18 at 00:00; Stop 04/30/18 at 01:39; Status DC Non-Formulary Medication (Mirtazapine (Remeron)) 7.5 mg HS PO ; Start 04/30/18 at 00:00; Stop 04/30/18 at 01:39; Status DC Non-Formulary Medication (Olanzapine ) 5 mg HS PO ; Start 04/30/18 at 00:00; Stop 04/30/18 at 01:39; Status DC Non-Formulary Medication (Trazodone Hcl ) 50 mg HS PO ; Start 04/30/18 at 00:00 ; Stop 04/30/18 at 01:39; Status DC Bisacodyl (Dulcolax Supp) 10 mg PRN DAILY PRN [place] CONSTIPATION; Start 04/30/18 at 01:45 Multivitamins/ Calcium (Thera-M Plus) 1 tab DAILY PO Last administered on 05/25at 08:03; Start 04/30/18 at 09:00 Amlodipine Besylate (Norvasc) 10 mg DAILY PO Last administered on 05/25/18 08 :06; Start 04/30/18 at 09:00 Levothyroxine Sodium (Synthroid) 50 mcg DAILY07 PO Last administered on 05:52; Start 04/30/18 at 07:00; Stop 04/30/18 at 15:49; Status DC Gabapentin (Neurontin) 800 mg QID PO Last administered on 05/25/18 19:04; Start 04/30/18 at 09:00 Baclofen (Lioresal) 10 mg QID PO Last administered on 05/25/18 19:03; Start 04/30/18 at 09:00 Mirtazapine (Remeron) 7.5 mg QHS PO Last administered on 05/25/18 19:03; Start 04/30/18 at 21:00 Olanzapine (ZyPREXA) 5 mg HS PO Last administered on 04/30/18 20:21; Start at 21:00; Stop 05/01/18 at 18:33; Status DC Trazodone HCl (Desyrel) 50 mg QHS PO Last administered on 05/25/18 19:03; Start 04/30/18 at 21:00 Duloxetine HCl (Cymbalta) 60 mg DAILY PO Last administered on 05/25/18 08:05 ; Start 04/30/18 at 09:00 Divalproex Sodium (Depakote Er) 1,000 mg QHS PO Last administered on 04/30/18 20:21; Start 04/30/18 at 21:00; Stop 05/01/18 at 18:33; Status DC Buspirone HCl (Buspar) 10 mg TID PO Last administered on 05/25/18 19:03; Start 04/30/18 at 09:00 Levothyroxine Sodium (Synthroid) 50 mcg DAILY06 PO Last administered on 05:27; Start 05/01/18 at 06:00 Divalproex Sodium (Depakote Er) 1,500 mg QHS PO Last administered on 19:04; Start 05/01/18 at 21:00 Risperidone (RisperDAL) 1 mg QHS PO Last administered on 05/03/18at 21:23; Start 05/01/18 at 21:00; Stop 05/04/18 at 17:21; Status DC Risperidone (RisperDAL) 1 mg QHS PO Last administered on 05/25/18at 19:03; Start 05/04/18 at 21:00 Risperidone (RisperDAL) 0.25 mg QHS PO Last administered on 05/04/18at 20:07; Start 05/04/18 at 21:00; Stop 05/05/18 at 17:39; Status DC Olanzapine (ZyPREXA ZYDIS) 2.5 mg PRN Q2HR PRN PO PSYCHOSIS Last administered on 05/21/18at 17:03; Start 05/04/18 at 23:00 Risperidone (RisperDAL) 0.5 mg QHS PO Last administered on 05/16/18at 20:22; Start 05/05/18 at 21:00; Stop 05/17/18 at 16:20; Status DC Trazodone HCl (Desyrel) 50 mg PRN QHS PRN PO Insomnia; Start 05/06/18 at 22:30 Nicotine (Nicoderm Cq 7mg) 1 patch DAILY TD Last administered on 05/18/18at 08: 55; Start 05/13/18 at 09:00 Risperidone (RisperDAL) 0.75 mg QHS PO Last administered on 05/25/18at 19:04; Start 05/17/18 at 21:00 Active Scripts Active Reported Buspirone Hcl 10 Mg Tablet 10 Mg PO TID Baclofen 10 Mg Tablet 10 Mg PO QID Gabapentin 100 Mg Capsule 100 Mg PO QID Gabapentin 800 Mg Tablet 800 Mg PO QID Levothyroxine Sodium 50 Mcg Tablet 50 Mcg PO DAILYAC Klonopin (Clonazepam) 0.5 Mg Tablet 0.5 Mg PO BID92 Lactulose 20 Gm/30 Ml Solution 30 Ml PO TID Norvasc (Amlodipine Besylate) 10 Mg Tablet 10 Mg PO DAILY Oxybutynin Chloride 5 Mg Tablet 2.5 Mg PO BID Depakote Er (Divalproex Sodium) 500 Mg Tab.er.24h 1,000 Mg PO HS Klor-Con M20 (Potassium Chloride) 20 Meq Tab.er.prt 20 Meq PO DAILY Cymbalta (Duloxetine Hcl) 60 Mg Capsule.dr 60 Mg PO DAILY Multivitamin with Iron Tablet (Multivitamin/Iron/Folic Acid) 1 Each Tablet 1 Tab PO DAILY Flomax (Tamsulosin Hcl) 0.4 Mg Cap.er.24h 0.8 Mg PO DAILY Trazodone Hcl 50 Mg Tablet 50 Mg PO HS Olanzapine 5 Mg Tablet 5 Mg PO HS Remeron (Mirtazapine) 15 Mg Tablet 7.5 Mg PO HS Bisacodyl 10 Mg Supp.rect 10 Mg RC PRN DAILY PRN Tylenol (Acetaminophen) 325 Mg Tablet 650 Mg PO PRN Q6HRS PRN I have reviewed the current psychotropics carefully including drug interactions. Risk benefit ratio favors no change other than as noted in my dictated progress note. Diagnosis: Problems: (1) Adult general medical examination (2) Anxiety disorder (3) Impulse control disorder (4) Schizophrenia, paranoid, chronic with acute exacerbation CATHY EMERY MD May 25, 2018 23:20
--- NOTE | 2018-05-26 05:12 | PN ---
DATE: 05/24/2018 This is a late entry for 05/24/2018 covers elements not covered in my initial note. SUBJECTIVE: I met with the patient in the evening. The patient slept 6-3/4 hours previous evening. He remains somewhat withdrawn, but appropriate on the unit. No clear hallucinations noted. REVIEW OF SYSTEMS: Ambulation with walker. No CV, , pulmonary, eye, ENT system symptoms on review. MENTAL STATUS EXAM: Reasonably oriented. Speech has some latency, coherent. Abstraction fair, computation impaired, language function intact, attention span short. Mood and affect somewhat withdrawn. LABORATORY DATA: Reviewed. IMPRESSION: Unchanged from initial note. PLAN: No change from initial note. MAN Ty EMERY MD DR: SARINA/nilda JOB#: [id number] / [id number]
[2018-05-26 06:08] VITALS: BP 136/90
[2018-05-26] MEDS: LEVOTHYROXINE 50 MCG TABLET PO SCH (06:33)
[2018-05-26] MEDS: NICOTINE 7MG PATCH. TD SCH ×2 (09:00→09:32)
[2018-05-26] MEDS: LACTULOSE 20 GM/30 ML SOLUTION. PO SCH ×4 (09:32→19:14)
[2018-05-26] MEDS: GABAPENTIN 100 MG CAPSULE. PO SCH ×4 (09:32→19:13)
[2018-05-26] MEDS: DULoxetine HCL 60 MG CAPSULE.DR PO SCH (09:32)
[2018-05-26] MEDS: amLODIPine BESYLATE 10 MG TABLET PO SCH (09:35)
[2018-05-26] MEDS: GABAPENTIN 400 MG CAPSULE. PO SCH ×4 (09:35→19:14)
[2018-05-26] MEDS: OXYBUTYNIN CHLORIDE 5 MG TABLET PO SCH ×2 (09:35→19:13)
[2018-05-26] MEDS: POTASSIUM CHLORIDE 20 MEQ TABLET.ER. PO SCH (09:35)
[2018-05-26] MEDS: BACLOFEN 10 MG TABLET PO SCH ×4 (09:35→19:14)
[2018-05-26] MEDS: TAMSULOSIN 0.4 MG CAP.ER.24H. PO SCH (09:36)
[2018-05-26] MEDS: busPIRone 10 MG TABLET. PO SCH ×3 (09:36→19:13)
[2018-05-26] MEDS: MULTIVITAMIN with MINERAL TABLET. PO SCH (09:36)
[2018-05-26] MEDS: clonazePAM 0.5 MG TABLET PO SCH ×2 (09:37→13:43)
[2018-05-26 16:33] VITALS: BP 112/70
[2018-05-26] MEDS: traZODone 50 MG TABLET. PO SCH (19:12)
[2018-05-26] MEDS: risperiDONE 0.25 MG TABLET. PO SCH (19:13)
[2018-05-26] MEDS: DIVALPROEX ER 500 MG TAB.ER.24H PO SCH (19:13)
[2018-05-26] MEDS: risperiDONE 1 MG TABLET. PO SCH (19:13)
[2018-05-26] MEDS: MIRTAZAPINE 7.5 MG TABLET. PO SCH (19:13)
--- NOTE | 2018-05-26 23:17 | PN ---
DATE: 05/25/2018 PSYCHIATRIC PROGRESS NOTE This late entry 05/25/2018, covers elements not covered in my initial note. SUBJECTIVE: I met with the patient on the evening of 05/25/2018. The patient slept 6-3/4 hours previous evening. Overall, he has not manifested any overt psychotic symptoms and has been interactive in group activities. REVIEW OF SYSTEMS: Ambulation impaired with walker. No CV, , pulmonary, eye, ENT system symptoms on review. MENTAL STATUS EXAM: Reasonably oriented to place and situations. Speech has some latency, coherent. Abstraction fair. Computation, able to do one step on serial 7's, remembered 2/3 objects at 3 minutes. No active suicidal or homicidal ideation. Attention span short. Language function intact. LABORATORY DATA: Reviewed. IMPRESSION: Unchanged from initial note. PLAN: No change from initial note and social service staff are arranging placement, and I have reiterated that he can be discharged as soon as placement obtained. CATHY EMERY MD DR: SARINA/nilda JOB#: [id number] / [id number]
--- NOTE | 2018-05-26 23:23 | PDOC ---
Exam Note: Nguyễn Note: Please also refer to the separate dictated note~for this date of service dictated separately.~Patient seen individually. Discussed the patient with Nursing staff reviewed the chart.~Reviewed interim history and current functioning. Reviewed vital signs,~Labs/ Radiology~and current medications noted below. Continue current treatment with the changes noted in the dictated addendum note Assessment: Vital Signs: Vital Signs Date Time Temp Pulse Resp B/P (MAP) Pulse Ox O2 Delivery O2 Flow Rate FiO2 05/26/18 16:33 97.9 84 18 112/70 (84) 93 05/22/18 16:38 Room Air I&O Intake and Output 05/26/18 07:00 Intake Total 1680 ml Balance 1680 ml Intake Oral 1680 ml Current Medications: Meds: Current Medications Clonazepam (KlonoPIN) 0.5 mg BID92 PO Last administered on 05/26/18at 13:43; Start 04/30/18 at 09:00 Non-Formulary Medication (Buspirone Hcl ) 10 mg TID PO ; Start 04/30/18 at 09:00 ; Stop 04/30/18 at 09:00; Status DC Non-Formulary Medication (Divalproex Sodium (Depakote Er)) 1,000 mg HS PO ; Start 04/30/18 at 21:00; Stop 04/30/18 at 21:00; Status DC Non-Formulary Medication (Duloxetine Hcl (Cymbalta)) 60 mg DAILY PO ; Start at 09:00; Stop 04/30/18 at 09:00; Status DC Non-Formulary Medication (Mirtazapine (Remeron)) 7.5 mg HS PO ; Start 04/30/18 at 21:00; Stop 04/30/18 at 21:00; Status DC Non-Formulary Medication (Olanzapine ) 5 mg HS PO ; Start 04/30/18 at 21:00; Stop 04/30/18 at 21:00; Status DC Non-Formulary Medication (Trazodone Hcl ) 50 mg HS PO ; Start 04/30/18 at 21:00 ; Stop 04/30/18 at 21:00; Status DC Acetaminophen (Tylenol) 650 mg PRN Q6HRS PRN PO PAIN / TEMP; Start 04/29/18 at 23:45 Gabapentin (Neurontin) 100 mg QID PO ; Start 04/30/18 at 09:00; Stop 04/30/18 at 09:00; Status DC Lactulose (Lactulose) 20 gm TID PO Last administered on 05/26/18at 09:32; Start 04/30/18 at 09:00 Oxybutynin Chloride (Ditropan) 2.5 mg BID PO Last administered on 05/26/18at 19 :13; Start 04/30/18 at 09:00 Potassium Chloride (Klor-Con) 20 meq DAILY PO Last administered on 05/26/18at 09:35; Start 04/30/18 at 09:00 Tamsulosin HCl (Flomax) 0.8 mg DAILY PO Last administered on 05/26/18at 09:36; Start 04/30/18 at 09:00 Non-Formulary Medication (Amlodipine Besylate (Norvasc)) 10 mg DAILY PO ; Start 04/30/18 at 09:00; Stop 04/30/18 at 09:00; Status DC Non-Formulary Medication (Baclofen ) 10 mg QID PO ; Start 04/30/18 at 09:00; Stop 04/30/18 at 09:00; Status DC Non-Formulary Medication (Bisacodyl ) 10 mg PRN DAILY PRN [place] CONSTIPATION; Start 04/29/18 at 23:45; Stop 04/30/18 at 01:39; Status DC Non-Formulary Medication (Gabapentin ) 800 mg QID PO ; Start 04/30/18 at 09:00; Stop 04/30/18 at 09:00; Status DC Non-Formulary Medication (Levothyroxine Sodium ) 50 mcg DAILYAC PO ; Start 04/30 at 07:30; Stop 04/30/18 at 07:30; Status DC Non-Formulary Medication (Multivitamin/ Iron/Folic Acid (Multivitamin with Iron Tablet)) 1 tab DAILY PO ; Start 04/30/18 at 09:00; Stop 04/30/18 at 09:00; Status DC Multi-Ingredient Ointment (Analgesic [place]ora) 1 jing PRN QID PRN TP MUSCLE PAIN; Start 04/29/18 at 23:45 Al Hydroxide/Mg Hydroxide (Mylanta Plus Xs) 15 ml PRN AFTMEALHC PRN PO DYSPEPSIA; Start 04/29/18 at 23:45 Magnesium Hydroxide (Milk Of Magnesia) 2,400 mg PRN QHS PRN PO CONSTIPATION; Start 04/29/18 at 23:45 Nicotine (Nicoderm Cq 14mg) 1 patch DAILY TD Last administered on 05/11/18at 09: 22; Start 04/30/18 at 09:00; Stop 05/12/18 at 11:26; Status DC Gabapentin (Neurontin) 100 mg QID PO Last administered on 05/26/18at 19:13; Start 04/30/18 at 00:30 Non-Formulary Medication (Baclofen ) 10 mg QID PO ; Start 04/30/18 at 00:00; Stop 04/30/18 at 01:39; Status DC Non-Formulary Medication (Buspirone Hcl ) 10 mg TID PO ; Start 04/30/18 at 00:00 ; Stop 04/30/18 at 01:39; Status DC Non-Formulary Medication (Divalproex Sodium (Depakote Er)) 1,000 mg HS PO ; Start 04/30/18 at 00:00; Stop 04/30/18 at 01:39; Status DC Non-Formulary Medication (Gabapentin ) 800 mg QID PO ; Start 04/30/18 at 00:00; Stop 04/30/18 at 01:39; Status DC Non-Formulary Medication (Mirtazapine (Remeron)) 7.5 mg HS PO ; Start 04/30/18 at 00:00; Stop 04/30/18 at 01:39; Status DC Non-Formulary Medication (Olanzapine ) 5 mg HS PO ; Start 04/30/18 at 00:00; Stop 04/30/18 at 01:39; Status DC Non-Formulary Medication (Trazodone Hcl ) 50 mg HS PO ; Start 04/30/18 at 00:00 ; Stop 04/30/18 at 01:39; Status DC Bisacodyl (Dulcolax Supp) 10 mg PRN DAILY PRN [place] CONSTIPATION; Start 04/30/18 at 01:45 Multivitamins/ Calcium (Thera-M Plus) 1 tab DAILY PO Last administered on 05/26at 09:36; Start 04/30/18 at 09:00 Amlodipine Besylate (Norvasc) 10 mg DAILY PO Last administered on 05/26/18at 09 :35; Start 04/30/18 at 09:00 Levothyroxine Sodium (Synthroid) 50 mcg DAILY07 PO Last administered on at 05:52; Start 04/30/18 at 07:00; Stop 04/30/18 at 15:49; Status DC Gabapentin (Neurontin) 800 mg QID PO Last administered on 05/26/18 19:14; Start 04/30/18 at 09:00 Baclofen (Lioresal) 10 mg QID PO Last administered on 05/26/18 19:14; Start 04/30/18 at 09:00 Mirtazapine (Remeron) 7.5 mg QHS PO Last administered on 05/26/18 19:13; Start 04/30/18 at 21:00 Olanzapine (ZyPREXA) 5 mg HS PO Last administered on 04/30/18 20:21; Start at 21:00; Stop 05/01/18 at 18:33; Status DC Trazodone HCl (Desyrel) 50 mg QHS PO Last administered on 05/26/18 19:12; Start 04/30/18 at 21:00 Duloxetine HCl (Cymbalta) 60 mg DAILY PO Last administered on 05/26/18at 09:32 ; Start 04/30/18 at 09:00 Divalproex Sodium (Depakote Er) 1,000 mg QHS PO Last administered on 04/30/18at 20:21; Start 04/30/18 at 21:00; Stop 05/01/18 at 18:33; Status DC Buspirone HCl (Buspar) 10 mg TID PO Last administered on 05/26/18 19:13; Start 04/30/18 at 09:00 Levothyroxine Sodium (Synthroid) 50 mcg DAILY06 PO Last administered on at 06:33; Start 05/01/18 at 06:00 Divalproex Sodium (Depakote Er) 1,500 mg QHS PO Last administered on 19:13; Start 05/01/18 at 21:00 Risperidone (RisperDAL) 1 mg QHS PO Last administered on 05/03/18at 21:23; Start 05/01/18 at 21:00; Stop 05/04/18 at 17:21; Status DC Risperidone (RisperDAL) 1 mg QHS PO Last administered on 05/26/18at 19:13; Start 05/04/18 at 21:00 Risperidone (RisperDAL) 0.25 mg QHS PO Last administered on 05/04/18at 20:07; Start 05/04/18 at 21:00; Stop 05/05/18 at 17:39; Status DC Olanzapine (ZyPREXA ZYDIS) 2.5 mg PRN Q2HR PRN PO PSYCHOSIS Last administered on 05/21/18at 17:03; Start 05/04/18 at 23:00 Risperidone (RisperDAL) 0.5 mg QHS PO Last administered on 05/16/18at 20:22; Start 05/05/18 at 21:00; Stop 05/17/18 at 16:20; Status DC Trazodone HCl (Desyrel) 50 mg PRN QHS PRN PO Insomnia; Start 05/06/18 at 22:30 Nicotine (Nicoderm Cq 7mg) 1 patch DAILY TD Last administered on 05/18/18at 08: 55; Start 05/13/18 at 09:00 Risperidone (RisperDAL) 0.75 mg QHS PO Last administered on 05/26/18at 19:13; Start 05/17/18 at 21:00 Active Scripts Active Reported Buspirone Hcl 10 Mg Tablet 10 Mg PO TID Baclofen 10 Mg Tablet 10 Mg PO QID Gabapentin 100 Mg Capsule 100 Mg PO QID Gabapentin 800 Mg Tablet 800 Mg PO QID Levothyroxine Sodium 50 Mcg Tablet 50 Mcg PO DAILYAC Klonopin (Clonazepam) 0.5 Mg Tablet 0.5 Mg PO BID92 Lactulose 20 Gm/30 Ml Solution 30 Ml PO TID Norvasc (Amlodipine Besylate) 10 Mg Tablet 10 Mg PO DAILY Oxybutynin Chloride 5 Mg Tablet 2.5 Mg PO BID Depakote Er (Divalproex Sodium) 500 Mg Tab.er.24h 1,000 Mg PO HS Klor-Con M20 (Potassium Chloride) 20 Meq Tab.er.prt 20 Meq PO DAILY Cymbalta (Duloxetine Hcl) 60 Mg Capsule.dr 60 Mg PO DAILY Multivitamin with Iron Tablet (Multivitamin/Iron/Folic Acid) 1 Each Tablet 1 Tab PO DAILY Flomax (Tamsulosin Hcl) 0.4 Mg Cap.er.24h 0.8 Mg PO DAILY Trazodone Hcl 50 Mg Tablet 50 Mg PO HS Olanzapine 5 Mg Tablet 5 Mg PO HS Remeron (Mirtazapine) 15 Mg Tablet 7.5 Mg PO HS Bisacodyl 10 Mg Supp.rect 10 Mg RC PRN DAILY PRN Tylenol (Acetaminophen) 325 Mg Tablet 650 Mg PO PRN Q6HRS PRN I have reviewed the current psychotropics carefully including drug interactions. Risk benefit ratio favors no change other than as noted in my dictated progress note. Diagnosis: Problems: (1) Adult general medical examination (2) Anxiety disorder (3) Impulse control disorder (4) Schizophrenia, paranoid, chronic with acute exacerbation CATHY EMERY MD May 26, 2018 23:23
[2018-05-27] MEDS: LEVOTHYROXINE 50 MCG TABLET PO SCH (05:50)
[2018-05-27 06:05] VITALS: BP 108/70
[2018-05-27] MEDS: TAMSULOSIN 0.4 MG CAP.ER.24H. PO SCH (07:22)
[2018-05-27] MEDS: NICOTINE 7MG PATCH. TD SCH (07:22)
[2018-05-27] MEDS: LACTULOSE 20 GM/30 ML SOLUTION. PO SCH ×3 (07:22→20:52)
[2018-05-27] MEDS: GABAPENTIN 400 MG CAPSULE. PO SCH ×4 (07:22→20:53)
[2018-05-27] MEDS: GABAPENTIN 100 MG CAPSULE. PO SCH ×4 (07:22→20:52)
[2018-05-27] MEDS: MULTIVITAMIN with MINERAL TABLET. PO SCH (07:22)
[2018-05-27] MEDS: busPIRone 10 MG TABLET. PO SCH ×3 (07:23→20:50)
[2018-05-27] MEDS: BACLOFEN 10 MG TABLET PO SCH ×4 (07:23→20:52)
[2018-05-27] MEDS: OXYBUTYNIN CHLORIDE 5 MG TABLET PO SCH ×2 (07:23→20:52)
[2018-05-27] MEDS: DULoxetine HCL 60 MG CAPSULE.DR PO SCH (07:23)
[2018-05-27] MEDS: POTASSIUM CHLORIDE 20 MEQ TABLET.ER. PO SCH (07:23)
[2018-05-27] MEDS: amLODIPine BESYLATE 10 MG TABLET PO SCH (07:24)
[2018-05-27] MEDS: clonazePAM 0.5 MG TABLET PO SCH ×2 (07:28→11:49)
[2018-05-27 16:13] VITALS: BP 111/74
[2018-05-27] MEDS: DIVALPROEX ER 500 MG TAB.ER.24H PO SCH (20:51)
[2018-05-27] MEDS: traZODone 50 MG TABLET. PO SCH (20:52)
[2018-05-27] MEDS: MIRTAZAPINE 7.5 MG TABLET. PO SCH (20:53)
[2018-05-27] MEDS: risperiDONE 1 MG TABLET. PO SCH (20:54)
[2018-05-27] MEDS: risperiDONE 0.25 MG TABLET. PO SCH (20:55)
--- NOTE | 2018-05-27 23:37 | PN ---
DATE: 05/26/2018 PSYCHIATRIC PROGRESS NOTE This late entry 05/26/2018 covers elements not covered in my initial note. SUBJECTIVE: I met with the patient in the evening. Overall, the patient slept 7-1/2 hours previous night. He has done better, somewhat withdrawn at times. Verbal and interactive when I met with him. REVIEW OF SYSTEMS: Ambulation impaired with walker. No CV, , pulmonary, eye, ENT system symptoms on review. MENTAL STATUS EXAM: The patient is oriented to himself and situation. Speech has some latency, coherent. Abstraction fair, computation impaired, language function intact, attention span short. Mood and affect less withdrawn, . LABORATORY DATA: Reviewed. IMPRESSION: Schizoaffective disorder, bipolar type, mixed with psychotic features. Rest unchanged. PLAN: We will change from initial note. I have discussed with social service staff the plan to make arrangements for appropriate placement and he can leave as soon as this is done. CATHY EMERY MD DR: SARINA/nilda JOB#: [id number] / [id number]
--- NOTE | 2018-05-27 23:43 | PDOC ---
Exam Note: Nguyễn Note: Please also refer to the separate dictated note~for this date of service dictated separately.~Patient seen individually. Discussed the patient with Nursing staff reviewed the chart.~Reviewed interim history and current functioning. Reviewed vital signs,~Labs/ Radiology~and current medications noted below. Continue current treatment with the changes noted in the dictated addendum note Assessment: Vital Signs: Vital Signs Date Time Temp Pulse Resp B/P (MAP) Pulse Ox O2 Delivery O2 Flow Rate FiO2 05/27/18 16:13 98.3 73 16 111/74 (86) 98 05/22/18 16:38 Room Air I&O Intake and Output 05/27/18 07:00 Intake Total 1080 ml Balance 1080 ml Intake Oral 1080 ml Current Medications: Meds: Current Medications Clonazepam (KlonoPIN) 0.5 mg BID92 PO Last administered on 05/27/18at 11:49; Start 04/30/18 at 09:00 Non-Formulary Medication (Buspirone Hcl ) 10 mg TID PO ; Start 04/30/18 at 09:00 ; Stop 04/30/18 at 09:00; Status DC Non-Formulary Medication (Divalproex Sodium (Depakote Er)) 1,000 mg HS PO ; Start 04/30/18 at 21:00; Stop 04/30/18 at 21:00; Status DC Non-Formulary Medication (Duloxetine Hcl (Cymbalta)) 60 mg DAILY PO ; Start at 09:00; Stop 04/30/18 at 09:00; Status DC Non-Formulary Medication (Mirtazapine (Remeron)) 7.5 mg HS PO ; Start 04/30/18 at 21:00; Stop 04/30/18 at 21:00; Status DC Non-Formulary Medication (Olanzapine ) 5 mg HS PO ; Start 04/30/18 at 21:00; Stop 04/30/18 at 21:00; Status DC Non-Formulary Medication (Trazodone Hcl ) 50 mg HS PO ; Start 04/30/18 at 21:00 ; Stop 04/30/18 at 21:00; Status DC Acetaminophen (Tylenol) 650 mg PRN Q6HRS PRN PO PAIN / TEMP; Start 04/29/18 at 23:45 Gabapentin (Neurontin) 100 mg QID PO ; Start 04/30/18 at 09:00; Stop 04/30/18 at 09:00; Status DC Lactulose (Lactulose) 20 gm TID PO Last administered on 05/27/18at 20:52; Start 04/30/18 at 09:00 Oxybutynin Chloride (Ditropan) 2.5 mg BID PO Last administered on 05/27/18at 20 :52; Start 04/30/18 at 09:00 Potassium Chloride (Klor-Con) 20 meq DAILY PO Last administered on 05/27/18at 07:23; Start 04/30/18 at 09:00 Tamsulosin HCl (Flomax) 0.8 mg DAILY PO Last administered on 05/27/18at 07:22; Start 04/30/18 at 09:00 Non-Formulary Medication (Amlodipine Besylate (Norvasc)) 10 mg DAILY PO ; Start 04/30/18 at 09:00; Stop 04/30/18 at 09:00; Status DC Non-Formulary Medication (Baclofen ) 10 mg QID PO ; Start 04/30/18 at 09:00; Stop 04/30/18 at 09:00; Status DC Non-Formulary Medication (Bisacodyl ) 10 mg PRN DAILY PRN RC CONSTIPATION; Start 04/29/18 at 23:45; Stop 04/30/18 at 01:39; Status DC Non-Formulary Medication (Gabapentin ) 800 mg QID PO ; Start 04/30/18 at 09:00; Stop 04/30/18 at 09:00; Status DC Non-Formulary Medication (Levothyroxine Sodium ) 50 mcg DAILYAC PO ; Start 04/30 at 07:30; Stop 04/30/18 at 07:30; Status DC Non-Formulary Medication (Multivitamin/ Iron/Folic Acid (Multivitamin with Iron Tablet)) 1 tab DAILY PO ; Start 04/30/18 at 09:00; Stop 04/30/18 at 09:00; Status DC Multi-Ingredient Ointment (Analgesic [place]) 1 jing PRN QID PRN TP MUSCLE PAIN; Start 04/29/18 at 23:45 Al Hydroxide/Mg Hydroxide (Mylanta Plus Xs) 15 ml PRN AFTMEALHC PRN PO DYSPEPSIA; Start 04/29/18 at 23:45 Magnesium Hydroxide (Milk Of Magnesia) 2,400 mg PRN QHS PRN PO CONSTIPATION; Start 04/29/18 at 23:45 Nicotine (Nicoderm Cq 14mg) 1 patch DAILY TD Last administered on 05/11/18at 09: 22; Start 04/30/18 at 09:00; Stop 05/12/18 at 11:26; Status DC Gabapentin (Neurontin) 100 mg QID PO Last administered on 05/27/18at 20:52; Start 04/30/18 at 00:30 Non-Formulary Medication (Baclofen ) 10 mg QID PO ; Start 04/30/18 at 00:00; Stop 04/30/18 at 01:39; Status DC Non-Formulary Medication (Buspirone Hcl ) 10 mg TID PO ; Start 04/30/18 at 00:00 ; Stop 04/30/18 at 01:39; Status DC Non-Formulary Medication (Divalproex Sodium (Depakote Er)) 1,000 mg HS PO ; Start 04/30/18 at 00:00; Stop 04/30/18 at 01:39; Status DC Non-Formulary Medication (Gabapentin ) 800 mg QID PO ; Start 04/30/18 at 00:00; Stop 04/30/18 at 01:39; Status DC Non-Formulary Medication (Mirtazapine (Remeron)) 7.5 mg HS PO ; Start 04/30/18 at 00:00; Stop 04/30/18 at 01:39; Status DC Non-Formulary Medication (Olanzapine ) 5 mg HS PO ; Start 04/30/18 at 00:00; Stop 04/30/18 at 01:39; Status DC Non-Formulary Medication (Trazodone Hcl ) 50 mg HS PO ; Start 04/30/18 at 00:00 ; Stop 04/30/18 at 01:39; Status DC Bisacodyl (Dulcolax Supp) 10 mg PRN DAILY PRN [place] CONSTIPATION; Start 04/30/18 at 01:45 Multivitamins/ Calcium (Thera-M Plus) 1 tab DAILY PO Last administered on 05/27at 07:22; Start 04/30/18 at 09:00 Amlodipine Besylate (Norvasc) 10 mg DAILY PO Last administered on 05/26/18at 09 :35; Start 04/30/18 at 09:00 Levothyroxine Sodium (Synthroid) 50 mcg DAILY07 PO Last administered on 05:52; Start 04/30/18 at 07:00; Stop 04/30/18 at 15:49; Status DC Gabapentin (Neurontin) 800 mg QID PO Last administered on 05/27/18at 20:53; Start 04/30/18 at 09:00 Baclofen (Lioresal) 10 mg QID PO Last administered on 05/27/18 20:52; Start 04/30/18 at 09:00 Mirtazapine (Remeron) 7.5 mg QHS PO Last administered on 05/27/18 20:53; Start 04/30/18 at 21:00 Olanzapine (ZyPREXA) 5 mg HS PO Last administered on 04/30/18at 20:21; Start at 21:00; Stop 05/01/18 at 18:33; Status DC Trazodone HCl (Desyrel) 50 mg QHS PO Last administered on 05/27/18 20:52; Start 04/30/18 at 21:00 Duloxetine HCl (Cymbalta) 60 mg DAILY PO Last administered on 05/27/18 07:23 ; Start 04/30/18 at 09:00 Divalproex Sodium (Depakote Er) 1,000 mg QHS PO Last administered on 04/30/18at 20:21; Start 04/30/18 at 21:00; Stop 05/01/18 at 18:33; Status DC Buspirone HCl (Buspar) 10 mg TID PO Last administered on 05/27/18at 20:50; Start 04/30/18 at 09:00 Levothyroxine Sodium (Synthroid) 50 mcg DAILY06 PO Last administered on at 05:50; Start 05/01/18 at 06:00 Divalproex Sodium (Depakote Er) 1,500 mg QHS PO Last administered on at 20:51; Start 05/01/18 at 21:00 Risperidone (RisperDAL) 1 mg QHS PO Last administered on 05/03/18at 21:23; Start 05/01/18 at 21:00; Stop 05/04/18 at 17:21; Status DC Risperidone (RisperDAL) 1 mg QHS PO Last administered on 05/27/18at 20:54; Start 05/04/18 at 21:00 Risperidone (RisperDAL) 0.25 mg QHS PO Last administered on 05/04/18at 20:07; Start 05/04/18 at 21:00; Stop 05/05/18 at 17:39; Status DC Olanzapine (ZyPREXA ZYDIS) 2.5 mg PRN Q2HR PRN PO PSYCHOSIS Last administered on 05/21/18at 17:03; Start 05/04/18 at 23:00 Risperidone (RisperDAL) 0.5 mg QHS PO Last administered on 05/16/18at 20:22; Start 05/05/18 at 21:00; Stop 05/17/18 at 16:20; Status DC Trazodone HCl (Desyrel) 50 mg PRN QHS PRN PO Insomnia; Start 05/06/18 at 22:30 Nicotine (Nicoderm Cq 7mg) 1 patch DAILY TD Last administered on 05/27/18at 07: 22; Start 05/13/18 at 09:00 Risperidone (RisperDAL) 0.75 mg QHS PO Last administered on 05/27/18at 20:55; Start 05/17/18 at 21:00 Active Scripts Active Reported Buspirone Hcl 10 Mg Tablet 10 Mg PO TID Baclofen 10 Mg Tablet 10 Mg PO QID Gabapentin 100 Mg Capsule 100 Mg PO QID Gabapentin 800 Mg Tablet 800 Mg PO QID Levothyroxine Sodium 50 Mcg Tablet 50 Mcg PO DAILYAC Klonopin (Clonazepam) 0.5 Mg Tablet 0.5 Mg PO BID92 Lactulose 20 Gm/30 Ml Solution 30 Ml PO TID Norvasc (Amlodipine Besylate) 10 Mg Tablet 10 Mg PO DAILY Oxybutynin Chloride 5 Mg Tablet 2.5 Mg PO BID Depakote Er (Divalproex Sodium) 500 Mg Tab.er.24h 1,000 Mg PO HS Klor-Con M20 (Potassium Chloride) 20 Meq Tab.er.prt 20 Meq PO DAILY Cymbalta (Duloxetine Hcl) 60 Mg Capsule.dr 60 Mg PO DAILY Multivitamin with Iron Tablet (Multivitamin/Iron/Folic Acid) 1 Each Tablet 1 Tab PO DAILY Flomax (Tamsulosin Hcl) 0.4 Mg Cap.er.24h 0.8 Mg PO DAILY Trazodone Hcl 50 Mg Tablet 50 Mg PO HS Olanzapine 5 Mg Tablet 5 Mg PO HS Remeron (Mirtazapine) 15 Mg Tablet 7.5 Mg PO HS Bisacodyl 10 Mg Supp.rect 10 Mg RC PRN DAILY PRN Tylenol (Acetaminophen) 325 Mg Tablet 650 Mg PO PRN Q6HRS PRN I have reviewed the current psychotropics carefully including drug interactions. Risk benefit ratio favors no change other than as noted in my dictated progress note. Diagnosis: Problems: (1) Adult general medical examination (2) Anxiety disorder (3) Impulse control disorder (4) Schizophrenia, paranoid, chronic with acute exacerbation CATHY EMERY MD May 27, 2018 23:43
[2018-05-28] MEDS: LEVOTHYROXINE 50 MCG TABLET PO SCH (06:20)
[2018-05-28 06:26] VITALS: BP 122/83
[2018-05-28] MEDS: GABAPENTIN 100 MG CAPSULE. PO SCH ×4 (08:00→19:44)
[2018-05-28] MEDS: NICOTINE 7MG PATCH. TD SCH (08:00)
[2018-05-28] MEDS: busPIRone 10 MG TABLET. PO SCH ×3 (08:00→19:44)
[2018-05-28] MEDS: TAMSULOSIN 0.4 MG CAP.ER.24H. PO SCH (08:01)
[2018-05-28] MEDS: POTASSIUM CHLORIDE 20 MEQ TABLET.ER. PO SCH (08:01)
[2018-05-28] MEDS: BACLOFEN 10 MG TABLET PO SCH ×4 (08:01→19:43)
[2018-05-28] MEDS: amLODIPine BESYLATE 10 MG TABLET PO SCH (08:01)
[2018-05-28] MEDS: DULoxetine HCL 60 MG CAPSULE.DR PO SCH (08:01)
[2018-05-28] MEDS: GABAPENTIN 400 MG CAPSULE. PO SCH ×4 (08:01→19:44)
[2018-05-28] MEDS: LACTULOSE 20 GM/30 ML SOLUTION. PO SCH ×2 (08:02→12:52)
[2018-05-28] MEDS: clonazePAM 0.5 MG TABLET PO SCH ×2 (08:04→12:51)
[2018-05-28] MEDS: MULTIVITAMIN with MINERAL TABLET. PO SCH (08:04)
[2018-05-28] MEDS: OXYBUTYNIN CHLORIDE 5 MG TABLET PO SCH ×2 (08:05→19:44)
[2018-05-28] MEDS ORDERED: NICOTINE 7MG PATCH. TD PRN (10:00)
[2018-05-28 15:57] VITALS: BP 136/89
[2018-05-28] MEDS: MIRTAZAPINE 7.5 MG TABLET. PO SCH (19:42)
[2018-05-28] MEDS: risperiDONE 0.25 MG TABLET. PO SCH (19:43)
[2018-05-28] MEDS: risperiDONE 1 MG TABLET. PO SCH (19:43)
[2018-05-28] MEDS: DIVALPROEX ER 500 MG TAB.ER.24H PO SCH (19:44)
[2018-05-28] MEDS: traZODone 50 MG TABLET. PO SCH (19:44)
--- NOTE | 2018-05-28 23:25 | PDOC ---
Exam Note: Nguyễn Note: Please also refer to the separate dictated note~for this date of service dictated separately.~Patient seen individually. Discussed the patient with Nursing staff reviewed the chart.~Reviewed interim history and current functioning. Reviewed vital signs,~Labs/ Radiology~and current medications noted below. Continue current treatment with the changes noted in the dictated addendum note Assessment: Vital Signs: Vital Signs Date Time Temp Pulse Resp B/P (MAP) Pulse Ox O2 Delivery O2 Flow Rate FiO2 05/28/18 15:57 97.2 81 20 136/89 (105) 96 Room Air I&O Intake and Output 05/28/18 07:00 Intake Total 1560 ml Balance 1560 ml Intake Oral 1560 ml Current Medications: Meds: Current Medications Clonazepam (KlonoPIN) 0.5 mg BID92 PO Last administered on 05/28/18at 12:51; Start 04/30/18 at 09:00 Non-Formulary Medication (Buspirone Hcl ) 10 mg TID PO ; Start 04/30/18 at 09:00 ; Stop 04/30/18 at 09:00; Status DC Non-Formulary Medication (Divalproex Sodium (Depakote Er)) 1,000 mg HS PO ; Start 04/30/18 at 21:00; Stop 04/30/18 at 21:00; Status DC Non-Formulary Medication (Duloxetine Hcl (Cymbalta)) 60 mg DAILY PO ; Start at 09:00; Stop 04/30/18 at 09:00; Status DC Non-Formulary Medication (Mirtazapine (Remeron)) 7.5 mg HS PO ; Start 04/30/18 at 21:00; Stop 04/30/18 at 21:00; Status DC Non-Formulary Medication (Olanzapine ) 5 mg HS PO ; Start 04/30/18 at 21:00; Stop 04/30/18 at 21:00; Status DC Non-Formulary Medication (Trazodone Hcl ) 50 mg HS PO ; Start 04/30/18 at 21:00 ; Stop 04/30/18 at 21:00; Status DC Acetaminophen (Tylenol) 650 mg PRN Q6HRS PRN PO PAIN / TEMP; Start 04/29/18 at 23:45 Gabapentin (Neurontin) 100 mg QID PO ; Start 04/30/18 at 09:00; Stop 04/30/18 at 09:00; Status DC Lactulose (Lactulose) 20 gm TID PO Last administered on 05/27/18at 20:52; Start 04/30/18 at 09:00; Stop 05/28/18 at 13:40; Status DC Oxybutynin Chloride (Ditropan) 2.5 mg BID PO Last administered on 05/28/18at 19 :44; Start 04/30/18 at 09:00 Potassium Chloride (Klor-Con) 20 meq DAILY PO Last administered on 05/28/18at 08:01; Start 04/30/18 at 09:00 Tamsulosin HCl (Flomax) 0.8 mg DAILY PO Last administered on 05/28/18at 08:01; Start 04/30/18 at 09:00 Non-Formulary Medication (Amlodipine Besylate (Norvasc)) 10 mg DAILY PO ; Start 04/30/18 at 09:00; Stop 04/30/18 at 09:00; Status DC Non-Formulary Medication (Baclofen ) 10 mg QID PO ; Start 04/30/18 at 09:00; Stop 04/30/18 at 09:00; Status DC Non-Formulary Medication (Bisacodyl ) 10 mg PRN DAILY PRN RC CONSTIPATION; Start 04/29/18 at 23:45; Stop 04/30/18 at 01:39; Status DC Non-Formulary Medication (Gabapentin ) 800 mg QID PO ; Start 04/30/18 at 09:00; Stop 04/30/18 at 09:00; Status DC Non-Formulary Medication (Levothyroxine Sodium ) 50 mcg DAILYAC PO ; Start 04/30 at 07:30; Stop 04/30/18 at 07:30; Status DC Non-Formulary Medication (Multivitamin/ Iron/Folic Acid (Multivitamin with Iron Tablet)) 1 tab DAILY PO ; Start 04/30/18 at 09:00; Stop 04/30/18 at 09:00; Status DC Multi-Ingredient Ointment (Analgesic [place]) 1 jing PRN QID PRN TP MUSCLE PAIN; Start 04/29/18 at 23:45 Al Hydroxide/Mg Hydroxide (Mylanta Plus Xs) 15 ml PRN AFTMEALHC PRN PO DYSPEPSIA; Start 04/29/18 at 23:45 Magnesium Hydroxide (Milk Of Magnesia) 2,400 mg PRN QHS PRN PO CONSTIPATION; Start 04/29/18 at 23:45 Nicotine (Nicoderm Cq 14mg) 1 patch DAILY TD Last administered on 05/11/18at 09: 22; Start 04/30/18 at 09:00; Stop 05/12/18 at 11:26; Status DC Gabapentin (Neurontin) 100 mg QID PO Last administered on 05/28/18at 19:44; Start 04/30/18 at 00:30 Non-Formulary Medication (Baclofen ) 10 mg QID PO ; Start 04/30/18 at 00:00; Stop 04/30/18 at 01:39; Status DC Non-Formulary Medication (Buspirone Hcl ) 10 mg TID PO ; Start 04/30/18 at 00:00 ; Stop 04/30/18 at 01:39; Status DC Non-Formulary Medication (Divalproex Sodium (Depakote Er)) 1,000 mg HS PO ; Start 04/30/18 at 00:00; Stop 04/30/18 at 01:39; Status DC Non-Formulary Medication (Gabapentin ) 800 mg QID PO ; Start 04/30/18 at 00:00; Stop 04/30/18 at 01:39; Status DC Non-Formulary Medication (Mirtazapine (Remeron)) 7.5 mg HS PO ; Start 04/30/18 at 00:00; Stop 04/30/18 at 01:39; Status DC Non-Formulary Medication (Olanzapine ) 5 mg HS PO ; Start 04/30/18 at 00:00; Stop 04/30/18 at 01:39; Status DC Non-Formulary Medication (Trazodone Hcl ) 50 mg HS PO ; Start 04/30/18 at 00:00 ; Stop 04/30/18 at 01:39; Status DC Bisacodyl (Dulcolax Supp) 10 mg PRN DAILY PRN [place] CONSTIPATION; Start 04/30/18 at 01:45 Multivitamins/ Calcium (Thera-M Plus) 1 tab DAILY PO Last administered on 05/28at 08:04; Start 04/30/18 at 09:00 Amlodipine Besylate (Norvasc) 10 mg DAILY PO Last administered on 05/28/18 08 :01; Start 04/30/18 at 09:00 Levothyroxine Sodium (Synthroid) 50 mcg DAILY07 PO Last administered on at 05:52; Start 04/30/18 at 07:00; Stop 04/30/18 at 15:49; Status DC Gabapentin (Neurontin) 800 mg QID PO Last administered on 05/28/18 19:44; Start 04/30/18 at 09:00 Baclofen (Lioresal) 10 mg QID PO Last administered on 05/28/18 19:43; Start 04/30/18 at 09:00 Mirtazapine (Remeron) 7.5 mg QHS PO Last administered on 05/28/18 19:42; Start 04/30/18 at 21:00 Olanzapine (ZyPREXA) 5 mg HS PO Last administered on 04/30/18 20:21; Start at 21:00; Stop 05/01/18 at 18:33; Status DC Trazodone HCl (Desyrel) 50 mg QHS PO Last administered on 05/28/18 19:44; Start 04/30/18 at 21:00 Duloxetine HCl (Cymbalta) 60 mg DAILY PO Last administered on 05/28/18 08:01 ; Start 04/30/18 at 09:00 Divalproex Sodium (Depakote Er) 1,000 mg QHS PO Last administered on 04/30/18 20:21; Start 04/30/18 at 21:00; Stop 05/01/18 at 18:33; Status DC Buspirone HCl (Buspar) 10 mg TID PO Last administered on 05/28/18 19:44; Start 04/30/18 at 09:00 Levothyroxine Sodium (Synthroid) 50 mcg DAILY06 PO Last administered on 06:20; Start 05/01/18 at 06:00 Divalproex Sodium (Depakote Er) 1,500 mg QHS PO Last administered on 19:44; Start 05/01/18 at 21:00 Risperidone (RisperDAL) 1 mg QHS PO Last administered on 05/03/18at 21:23; Start 05/01/18 at 21:00; Stop 05/04/18 at 17:21; Status DC Risperidone (RisperDAL) 1 mg QHS PO Last administered on 05/28/18at 19:43; Start 05/04/18 at 21:00 Risperidone (RisperDAL) 0.25 mg QHS PO Last administered on 05/04/18at 20:07; Start 05/04/18 at 21:00; Stop 05/05/18 at 17:39; Status DC Olanzapine (ZyPREXA ZYDIS) 2.5 mg PRN Q2HR PRN PO PSYCHOSIS Last administered on 05/21/18at 17:03; Start 05/04/18 at 23:00 Risperidone (RisperDAL) 0.5 mg QHS PO Last administered on 05/16/18at 20:22; Start 05/05/18 at 21:00; Stop 05/17/18 at 16:20; Status DC Trazodone HCl (Desyrel) 50 mg PRN QHS PRN PO Insomnia; Start 05/06/18 at 22:30 Nicotine (Nicoderm Cq 7mg) 1 patch DAILY TD Last administered on 05/28/18at 08: 00; Start 05/13/18 at 09:00; Stop 05/28/18 at 09:58; Status DC Risperidone (RisperDAL) 0.75 mg QHS PO Last administered on 05/28/18at 19:43; Start 05/17/18 at 21:00 Nicotine (Nicoderm Cq 7mg) 1 patch PRN DAILY PRN TD SMOKING CESSATION; Start 05/28/18 at 10:00 Active Scripts Active Reported Buspirone Hcl 10 Mg Tablet 10 Mg PO TID Baclofen 10 Mg Tablet 10 Mg PO QID Gabapentin 100 Mg Capsule 100 Mg PO QID Gabapentin 800 Mg Tablet 800 Mg PO QID Levothyroxine Sodium 50 Mcg Tablet 50 Mcg PO DAILYAC Klonopin (Clonazepam) 0.5 Mg Tablet 0.5 Mg PO BID92 Lactulose 20 Gm/30 Ml Solution 30 Ml PO TID Norvasc (Amlodipine Besylate) 10 Mg Tablet 10 Mg PO DAILY Oxybutynin Chloride 5 Mg Tablet 2.5 Mg PO BID Depakote Er (Divalproex Sodium) 500 Mg Tab.er.24h 1,000 Mg PO HS Klor-Con M20 (Potassium Chloride) 20 Meq Tab.er.prt 20 Meq PO DAILY Cymbalta (Duloxetine Hcl) 60 Mg Capsule.dr 60 Mg PO DAILY Multivitamin with Iron Tablet (Multivitamin/Iron/Folic Acid) 1 Each Tablet 1 Tab PO DAILY Flomax (Tamsulosin Hcl) 0.4 Mg Cap.er.24h 0.8 Mg PO DAILY Trazodone Hcl 50 Mg Tablet 50 Mg PO HS Olanzapine 5 Mg Tablet 5 Mg PO HS Remeron (Mirtazapine) 15 Mg Tablet 7.5 Mg PO HS Bisacodyl 10 Mg Supp.rect 10 Mg RC PRN DAILY PRN Tylenol (Acetaminophen) 325 Mg Tablet 650 Mg PO PRN Q6HRS PRN I have reviewed the current psychotropics carefully including drug interactions. Risk benefit ratio favors no change other than as noted in my dictated progress note. Diagnosis: Problems: (1) Adult general medical examination (2) Anxiety disorder (3) Impulse control disorder (4) Schizophrenia, paranoid, chronic with acute exacerbation CATHY EMERY MD May 28, 2018 23:25
[2018-05-29] MEDS: LEVOTHYROXINE 50 MCG TABLET PO SCH (05:34)
[2018-05-29 06:38] VITALS: BP 107/76
[2018-05-29] MEDS: DULoxetine HCL 60 MG CAPSULE.DR PO SCH (08:02)
[2018-05-29] MEDS: MULTIVITAMIN with MINERAL TABLET. PO SCH (08:02)
[2018-05-29] MEDS: amLODIPine BESYLATE 10 MG TABLET PO SCH (08:03)
[2018-05-29] MEDS: TAMSULOSIN 0.4 MG CAP.ER.24H. PO SCH (08:03)
[2018-05-29] MEDS: OXYBUTYNIN CHLORIDE 5 MG TABLET PO SCH ×2 (08:03→19:41)
[2018-05-29] MEDS: POTASSIUM CHLORIDE 20 MEQ TABLET.ER. PO SCH (08:03)
[2018-05-29] MEDS: BACLOFEN 10 MG TABLET PO SCH ×4 (08:03→19:40)
[2018-05-29] MEDS: busPIRone 10 MG TABLET. PO SCH ×3 (08:03→17:58)
[2018-05-29] MEDS: GABAPENTIN 100 MG CAPSULE. PO SCH ×4 (08:04→19:41)
[2018-05-29] MEDS: GABAPENTIN 400 MG CAPSULE. PO SCH ×4 (08:05→19:41)
[2018-05-29] MEDS: clonazePAM 0.5 MG TABLET PO SCH ×2 (08:07→14:34)
[2018-05-29 08:28] LABS: BASO # 0.1 x10^3/uL (0.0-0.2); BASO % 1 % (0-3); EOS # 0.2 x10^3/uL (0.0-0.7); EOS % 4 % (0-3); HEMOGLOBIN 14.6 g/dL (13.0-17.5); LYMPH # 1.5 x10^3/uL (1.0-4.8); LYMPH % 28 % (24-48); MEAN CORPUSCULAR HEMOGLOBIN 31 pg (25-35); MEAN CORPUSCULAR HGB CONC 35 g/dL (31-37); MEAN CORPUSCULAR VOLUME 89 fL (79-100); MONO # 0.5 x10^3/uL (0.0-1.1); MONO % 9 % (0-9); NEUT # 3.1 x10^3uL (1.8-7.7); NEUT % 58 % (31-73); PLATELET COUNT 277 x10^3/uL (140-400); RED BLOOD COUNT 4.72 x10^6/uL (4.30-5.70); RED CELL DISTRIBUTION WIDTH 13.7 % (11.5-14.5); WHITE BLOOD COUNT 5.4 x10^3/uL (4.0-11.0)
[2018-05-29 08:52] LABS: ALBUMIN 3.4 g/dL (3.4-5.0); CALCIUM 8.2 mg/dL (8.5-10.1); CREATININE 0.6 mg/dL (0.7-1.3); GFR 138.9; POTASSIUM 4.4 mmol/L (3.5-5.1); TOTAL BILIRUBIN 0.4 mg/dL (0.2-1.0); TOTAL PROTEIN 6.7 g/dL (6.4-8.2)
[2018-05-29 16:06] VITALS: BP 103/66
[2018-05-29] MEDS: MIRTAZAPINE 7.5 MG TABLET. PO SCH (19:40)
[2018-05-29] MEDS: risperiDONE 1 MG TABLET. PO SCH (19:40)
[2018-05-29] MEDS: traZODone 50 MG TABLET. PO SCH (19:41)
[2018-05-29] MEDS: DIVALPROEX ER 500 MG TAB.ER.24H PO SCH (19:41)
[2018-05-29] MEDS: risperiDONE 0.25 MG TABLET. PO SCH (19:42)
--- NOTE | 2018-05-29 20:35 | PN ---
DATE: 05/29/2018 SUBJECTIVE: The patient was seen today, met with the staff, and chart reviewed. The patient denies of any major problems. Staff reports no major problems. The patient is in the process of moving to different place, most likely [facility]. The patient apparently was a resident at [facility] for several years. Apparently, according to him, it was closed and they are trying to place him to a different facility. The patient is also somewhat hyperactive, concrete thinking lacking insights with unrealistic goals. OBSERVATION: VITAL SIGNS: Temperature 98.3, blood pressure 107/76, pulse 76, respiration 18, O2 sat 96%. GENERAL: Slept about 6 hours last night. MEDICATIONS: The patient's current medications include Remeron, Zyprexa, trazodone, Cymbalta, Depakote, Klonopin, and BuSpar. The patient currently denies of any major side effects. LABORATORY DATA: The patient's lab reviewed. ASSESSMENT: 1. Schizoaffective disorder, bipolar type with psychotic features. 2. Impulse control disorder, unspecified. PLAN: Plan is to continue with current treatments. DECLAN GALAVIZ MD DR: STEFF/nilda JOB#: [id number] / [id number]
[2018-05-30] MEDS: LEVOTHYROXINE 50 MCG TABLET PO SCH (05:58)
[2018-05-30 06:27] VITALS: BP 112/78
[2018-05-30] MEDS: busPIRone 10 MG TABLET. PO SCH ×3 (07:46→19:46)
[2018-05-30] MEDS: DULoxetine HCL 60 MG CAPSULE.DR PO SCH (07:46)
[2018-05-30] MEDS: POTASSIUM CHLORIDE 20 MEQ TABLET.ER. PO SCH (07:46)
[2018-05-30] MEDS: amLODIPine BESYLATE 10 MG TABLET PO SCH (07:47)
[2018-05-30] MEDS: BACLOFEN 10 MG TABLET PO SCH ×4 (07:47→19:44)
[2018-05-30] MEDS: OXYBUTYNIN CHLORIDE 5 MG TABLET PO SCH ×2 (07:47→19:45)
[2018-05-30] MEDS: GABAPENTIN 400 MG CAPSULE. PO SCH ×4 (07:47→19:46)
[2018-05-30] MEDS: TAMSULOSIN 0.4 MG CAP.ER.24H. PO SCH (07:47)
[2018-05-30] MEDS: GABAPENTIN 100 MG CAPSULE. PO SCH ×4 (07:47→19:44)
[2018-05-30] MEDS: MULTIVITAMIN with MINERAL TABLET. PO SCH (07:48)
[2018-05-30] MEDS: clonazePAM 0.5 MG TABLET PO SCH ×2 (07:50→12:35)
[2018-05-30 16:41] VITALS: BP 105/71
[2018-05-30] MEDS: risperiDONE 1 MG TABLET. PO SCH (19:44)
[2018-05-30] MEDS: risperiDONE 0.25 MG TABLET. PO SCH (19:45)
[2018-05-30] MEDS: MIRTAZAPINE 7.5 MG TABLET. PO SCH (19:45)
[2018-05-30] MEDS: traZODone 50 MG TABLET. PO SCH (19:45)
[2018-05-30] MEDS: DIVALPROEX ER 500 MG TAB.ER.24H PO SCH (19:46)
--- NOTE | 2018-05-30 19:47 | PN ---
DATE: 05/27/2018 PSYCHIATRIC PROGRESS NOTE This late entry 05/27/2018 covers elements not covered in my initial note. SUBJECTIVE: I met with the patient in the evening and staffed at a treatment team meeting with the entire team in the morning. The patient slept 7 hours previous night. 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 Depending on how long this change takes, we may have to have him return back to [place] and then look at alternate placement from there. In the meantime, he is doing reasonably well. No clear psychotic symptoms noted. REVIEW OF SYSTEMS: Ambulation impaired with walker. No CV, , pulmonary, eye system symptoms on review. MENTAL STATUS EXAM: Oriented to himself and situation. Speech is coherent, has some latency. Abstraction fair, computation impaired, language function intact. No suicidal or homicidal ideation. Intellect average. Insight good. Judgment intact. LABORATORY DATA: Reviewed. IMPRESSION: Schizoaffective disorder, bipolar type, in partial remission. Rest unchanged. PLAN: Continue psychotropics from initial note, await transition options per social service staff facilitation. CATHY EMERY MD DR: SARINA/nilda JOB#: [id number] / [id number]
[2018-05-31] MEDS: LEVOTHYROXINE 50 MCG TABLET PO SCH (06:14)
[2018-05-31 06:23] VITALS: BP 134/90
[2018-05-31] MEDS: busPIRone 10 MG TABLET. PO SCH ×3 (08:48→20:40)
[2018-05-31] MEDS: OXYBUTYNIN CHLORIDE 5 MG TABLET PO SCH ×2 (08:50→20:40)
[2018-05-31] MEDS: MULTIVITAMIN with MINERAL TABLET. PO SCH (08:51)
[2018-05-31] MEDS: TAMSULOSIN 0.4 MG CAP.ER.24H. PO SCH (08:51)
[2018-05-31] MEDS: BACLOFEN 10 MG TABLET PO SCH ×4 (08:51→20:41)
[2018-05-31] MEDS: POTASSIUM CHLORIDE 20 MEQ TABLET.ER. PO SCH (08:51)
[2018-05-31] MEDS: amLODIPine BESYLATE 10 MG TABLET PO SCH (08:52)
[2018-05-31] MEDS: GABAPENTIN 100 MG CAPSULE. PO SCH ×4 (08:53→20:39)
[2018-05-31] MEDS: GABAPENTIN 400 MG CAPSULE. PO SCH ×4 (08:53→20:41)
[2018-05-31] MEDS: DULoxetine HCL 60 MG CAPSULE.DR PO SCH (08:55)
[2018-05-31] MEDS: clonazePAM 0.5 MG TABLET PO SCH ×2 (08:55→12:32)
--- NOTE | 2018-05-31 10:08 | PN ---
DATE: 05/31/2018 This is a late entry for 05/28/2018 and covers elements not covered in my initial note. SUBJECTIVE: I met with the patient in the morning. The patient slept 7-1/4 hours previous evening. He remains somewhat withdrawn, but psychotic symptoms appear to have subsided. Social service staff are actively looking for appropriate placement since he has refused to go back to the [facility] as has his family. REVIEW OF SYSTEMS: Ambulation impaired with walker. No CV, , pulmonary, eye, ENT system symptoms on review. MENTAL STATUS EXAM: Reasonably oriented. Speech is coherent, has some latency. Abstraction fair, computation impaired, language function intact, attention span short. Mood and affect somewhat withdrawn. LABORATORY DATA: Reviewed. IMPRESSION: Schizoaffective disorder, bipolar type, mixed with psychotic features, in partial remission; anxiety disorder, unspecified. Rest unchanged. PLAN: No change from initial note. MAN Ty EMERY MD DR: SARINA/nilda JOB#: [id number] / [id number]
[2018-05-31 16:32] VITALS: BP 124/85
[2018-05-31] MEDS: DIVALPROEX ER 500 MG TAB.ER.24H PO SCH (20:39)
[2018-05-31] MEDS: traZODone 50 MG TABLET. PO SCH (20:40)
[2018-05-31] MEDS: MIRTAZAPINE 7.5 MG TABLET. PO SCH (20:40)
[2018-05-31] MEDS ORDERED: risperiDONE 2 MG TABLET. PO SCH (21:00)
--- NOTE | 2018-05-31 23:24 | PDOC ---
Exam Note: Nguyễn Note: Please also refer to the separate dictated note~for this date of service dictated separately.~Patient seen individually. Discussed the patient with Nursing staff reviewed the chart.~Reviewed interim history and current functioning. Reviewed vital signs,~Labs/ Radiology~and current medications noted below. Continue current treatment with the changes noted in the dictated addendum note Assessment: Vital Signs: Vital Signs Date Time Temp Pulse Resp B/P (MAP) Pulse Ox O2 Delivery O2 Flow Rate FiO2 05/31/18 16:32 97.9 86 19 124/85 (98) 99 Room Air I&O Intake and Output 05/31/18 07:00 Intake Total 1820 ml Balance 1820 ml Intake Oral 1820 ml Current Medications: Meds: Current Medications Clonazepam (KlonoPIN) 0.5 mg BID92 PO Last administered on 05/31/18at 12:32; Start 04/30/18 at 09:00 Non-Formulary Medication (Buspirone Hcl ) 10 mg TID PO ; Start 04/30/18 at 09:00 ; Stop 04/30/18 at 09:00; Status DC Non-Formulary Medication (Divalproex Sodium (Depakote Er)) 1,000 mg HS PO ; Start 04/30/18 at 21:00; Stop 04/30/18 at 21:00; Status DC Non-Formulary Medication (Duloxetine Hcl (Cymbalta)) 60 mg DAILY PO ; Start at 09:00; Stop 04/30/18 at 09:00; Status DC Non-Formulary Medication (Mirtazapine (Remeron)) 7.5 mg HS PO ; Start 04/30/18 at 21:00; Stop 04/30/18 at 21:00; Status DC Non-Formulary Medication (Olanzapine ) 5 mg HS PO ; Start 04/30/18 at 21:00; Stop 04/30/18 at 21:00; Status DC Non-Formulary Medication (Trazodone Hcl ) 50 mg HS PO ; Start 04/30/18 at 21:00 ; Stop 04/30/18 at 21:00; Status DC Acetaminophen (Tylenol) 650 mg PRN Q6HRS PRN PO PAIN / TEMP; Start 04/29/18 at 23:45 Gabapentin (Neurontin) 100 mg QID PO ; Start 04/30/18 at 09:00; Stop 04/30/18 at 09:00; Status DC Lactulose (Lactulose) 20 gm TID PO Last administered on 05/27/18at 20:52; Start 04/30/18 at 09:00; Stop 05/28/18 at 13:40; Status DC Oxybutynin Chloride (Ditropan) 2.5 mg BID PO Last administered on 05/31/18at 20 :40; Start 04/30/18 at 09:00 Potassium Chloride (Klor-Con) 20 meq DAILY PO Last administered on 05/31/18at 08:51; Start 04/30/18 at 09:00 Tamsulosin HCl (Flomax) 0.8 mg DAILY PO Last administered on 05/31/18at 08:51; Start 04/30/18 at 09:00 Non-Formulary Medication (Amlodipine Besylate (Norvasc)) 10 mg DAILY PO ; Start 04/30/18 at 09:00; Stop 04/30/18 at 09:00; Status DC Non-Formulary Medication (Baclofen ) 10 mg QID PO ; Start 04/30/18 at 09:00; Stop 04/30/18 at 09:00; Status DC Non-Formulary Medication (Bisacodyl ) 10 mg PRN DAILY PRN RC CONSTIPATION; Start 04/29/18 at 23:45; Stop 04/30/18 at 01:39; Status DC Non-Formulary Medication (Gabapentin ) 800 mg QID PO ; Start 04/30/18 at 09:00; Stop 04/30/18 at 09:00; Status DC Non-Formulary Medication (Levothyroxine Sodium ) 50 mcg DAILYAC PO ; Start 04/30 at 07:30; Stop 04/30/18 at 07:30; Status DC Non-Formulary Medication (Multivitamin/ Iron/Folic Acid (Multivitamin with Iron Tablet)) 1 tab DAILY PO ; Start 04/30/18 at 09:00; Stop 04/30/18 at 09:00; Status DC Multi-Ingredient Ointment (Analgesic [place]) 1 jing PRN QID PRN TP MUSCLE PAIN; Start 04/29/18 at 23:45 Al Hydroxide/Mg Hydroxide (Mylanta Plus Xs) 15 ml PRN AFTMEALHC PRN PO DYSPEPSIA; Start 04/29/18 at 23:45 Magnesium Hydroxide (Milk Of Magnesia) 2,400 mg PRN QHS PRN PO CONSTIPATION; Start 04/29/18 at 23:45 Nicotine (Nicoderm Cq 14mg) 1 patch DAILY TD Last administered on 05/11/18at 09: 22; Start 04/30/18 at 09:00; Stop 05/12/18 at 11:26; Status DC Gabapentin (Neurontin) 100 mg QID PO Last administered on 05/31/18at 20:39; Start 04/30/18 at 00:30 Non-Formulary Medication (Baclofen ) 10 mg QID PO ; Start 04/30/18 at 00:00; Stop 04/30/18 at 01:39; Status DC Non-Formulary Medication (Buspirone Hcl ) 10 mg TID PO ; Start 04/30/18 at 00:00 ; Stop 04/30/18 at 01:39; Status DC Non-Formulary Medication (Divalproex Sodium (Depakote Er)) 1,000 mg HS PO ; Start 04/30/18 at 00:00; Stop 04/30/18 at 01:39; Status DC Non-Formulary Medication (Gabapentin ) 800 mg QID PO ; Start 04/30/18 at 00:00; Stop 04/30/18 at 01:39; Status DC Non-Formulary Medication (Mirtazapine (Remeron)) 7.5 mg HS PO ; Start 04/30/18 at 00:00; Stop 04/30/18 at 01:39; Status DC Non-Formulary Medication (Olanzapine ) 5 mg HS PO ; Start 04/30/18 at 00:00; Stop 04/30/18 at 01:39; Status DC Non-Formulary Medication (Trazodone Hcl ) 50 mg HS PO ; Start 04/30/18 at 00:00 ; Stop 04/30/18 at 01:39; Status DC Bisacodyl (Dulcolax Supp) 10 mg PRN DAILY PRN [place] CONSTIPATION; Start 04/30/18 at 01:45 Multivitamins/ Calcium (Thera-M Plus) 1 tab DAILY PO Last administered on 05/31at 08:51; Start 04/30/18 at 09:00 Amlodipine Besylate (Norvasc) 10 mg DAILY PO Last administered on 05/31/18 08 :52; Start 04/30/18 at 09:00 Levothyroxine Sodium (Synthroid) 50 mcg DAILY07 PO Last administered on 05:52; Start 04/30/18 at 07:00; Stop 04/30/18 at 15:49; Status DC Gabapentin (Neurontin) 800 mg QID PO Last administered on 05/31/18 20:41; Start 04/30/18 at 09:00 Baclofen (Lioresal) 10 mg QID PO Last administered on 05/31/18 20:41; Start 04/30/18 at 09:00 Mirtazapine (Remeron) 7.5 mg QHS PO Last administered on 05/31/18 20:40; Start 04/30/18 at 21:00 Olanzapine (ZyPREXA) 5 mg HS PO Last administered on 04/30/18 20:21; Start at 21:00; Stop 05/01/18 at 18:33; Status DC Trazodone HCl (Desyrel) 50 mg QHS PO Last administered on 05/31/18 20:40; Start 04/30/18 at 21:00 Duloxetine HCl (Cymbalta) 60 mg DAILY PO Last administered on 05/31/18 08:55 ; Start 04/30/18 at 09:00 Divalproex Sodium (Depakote Er) 1,000 mg QHS PO Last administered on 04/30/18 20:21; Start 04/30/18 at 21:00; Stop 05/01/18 at 18:33; Status DC Buspirone HCl (Buspar) 10 mg TID PO Last administered on 05/31/18 20:40; Start 04/30/18 at 09:00 Levothyroxine Sodium (Synthroid) 50 mcg DAILY06 PO Last administered on 06:14; Start 05/01/18 at 06:00 Divalproex Sodium (Depakote Er) 1,500 mg QHS PO Last administered on 20:39; Start 05/01/18 at 21:00 Risperidone (RisperDAL) 1 mg QHS PO Last administered on 05/03/18 21:23; Start 05/01/18 at 21:00; Stop 05/04/18 at 17:21; Status DC Risperidone (RisperDAL) 1 mg QHS PO Last administered on 05/30/18at 19:44; Start 05/04/18 at 21:00; Stop 05/31/18 at 17:02; Status DC Risperidone (RisperDAL) 0.25 mg QHS PO Last administered on 05/04/18at 20:07; Start 05/04/18 at 21:00; Stop 05/05/18 at 17:39; Status DC Olanzapine (ZyPREXA ZYDIS) 2.5 mg PRN Q2HR PRN PO PSYCHOSIS Last administered on 05/21/18at 17:03; Start 05/04/18 at 23:00 Risperidone (RisperDAL) 0.5 mg QHS PO Last administered on 05/16/18at 20:22; Start 05/05/18 at 21:00; Stop 05/17/18 at 16:20; Status DC Trazodone HCl (Desyrel) 50 mg PRN QHS PRN PO Insomnia; Start 05/06/18 at 22:30 Nicotine (Nicoderm Cq 7mg) 1 patch DAILY TD Last administered on 05/28/18at 08: 00; Start 05/13/18 at 09:00; Stop 05/28/18 at 09:58; Status DC Risperidone (RisperDAL) 0.75 mg QHS PO Last administered on 05/30/18at 19:45; Start 05/17/18 at 21:00; Stop 05/31/18 at 17:02; Status DC Nicotine (Nicoderm Cq 7mg) 1 patch PRN DAILY PRN TD SMOKING CESSATION; Start 05/28/18 at 10:00 Risperidone (RisperDAL) 2 mg QHS PO Last administered on 05/31/18at 21:00; Start 05/31/18 at 21:00 Active Scripts Active Reported Buspirone Hcl 10 Mg Tablet 10 Mg PO TID Baclofen 10 Mg Tablet 10 Mg PO QID Gabapentin 100 Mg Capsule 100 Mg PO QID Gabapentin 800 Mg Tablet 800 Mg PO QID Levothyroxine Sodium 50 Mcg Tablet 50 Mcg PO DAILYAC Klonopin (Clonazepam) 0.5 Mg Tablet 0.5 Mg PO BID92 Lactulose 20 Gm/30 Ml Solution 30 Ml PO TID Norvasc (Amlodipine Besylate) 10 Mg Tablet 10 Mg PO DAILY Oxybutynin Chloride 5 Mg Tablet 2.5 Mg PO BID Depakote Er (Divalproex Sodium) 500 Mg Tab.er.24h 1,000 Mg PO HS Klor-Con M20 (Potassium Chloride) 20 Meq Tab.er.prt 20 Meq PO DAILY Cymbalta (Duloxetine Hcl) 60 Mg Capsule.dr 60 Mg PO DAILY Multivitamin with Iron Tablet (Multivitamin/Iron/Folic Acid) 1 Each Tablet 1 Tab PO DAILY Flomax (Tamsulosin Hcl) 0.4 Mg Cap.er.24h 0.8 Mg PO DAILY Trazodone Hcl 50 Mg Tablet 50 Mg PO HS Olanzapine 5 Mg Tablet 5 Mg PO HS Remeron (Mirtazapine) 15 Mg Tablet 7.5 Mg PO HS Bisacodyl 10 Mg Supp.rect 10 Mg RC PRN DAILY PRN Tylenol (Acetaminophen) 325 Mg Tablet 650 Mg PO PRN Q6HRS PRN I have reviewed the current psychotropics carefully including drug interactions. Risk benefit ratio favors no change other than as noted in my dictated progress note. Diagnosis: Problems: (1) Adult general medical examination (2) Anxiety disorder (3) Impulse control disorder (4) Schizophrenia, paranoid, chronic with acute exacerbation CATHY EMERY MD May 31, 2018 23:24
[2018-06-01] MEDS ORDERED: MAG30ORA2 PO (02:46)
[2018-06-01] MEDS ORDERED: MAGN400O7 PO (02:48)
[2018-06-01] MEDS ORDERED: METH29OI TP (02:50)
[2018-06-01] MEDS ORDERED: NICO1PAT25 TP (02:52)
[2018-06-01] MEDS ORDERED: RISP1TAB43 PO (02:54)
[2018-06-01] MEDS ORDERED: TRAZ-85 PO (02:55)
[2018-06-01] MEDS ORDERED: NICO1PAT27 TD (02:58)
[2018-06-01 05:42] VITALS: BP 137/88
[2018-06-01] MEDS: LEVOTHYROXINE 50 MCG TABLET PO SCH (05:57)
[2018-06-01] MEDS: MULTIVITAMIN with MINERAL TABLET. PO SCH (08:36)
[2018-06-01] MEDS: GABAPENTIN 100 MG CAPSULE. PO SCH ×2 (08:36→13:43)
[2018-06-01] MEDS: clonazePAM 0.5 MG TABLET PO SCH ×2 (08:36→13:43)
[2018-06-01] MEDS: DULoxetine HCL 60 MG CAPSULE.DR PO SCH (08:37)
[2018-06-01] MEDS: busPIRone 10 MG TABLET. PO SCH ×2 (08:37→13:44)
[2018-06-01] MEDS: GABAPENTIN 400 MG CAPSULE. PO SCH ×2 (08:37→13:43)
[2018-06-01] MEDS: BACLOFEN 10 MG TABLET PO SCH ×2 (08:37→13:43)
[2018-06-01] MEDS: POTASSIUM CHLORIDE 20 MEQ TABLET.ER. PO SCH (08:37)
[2018-06-01] MEDS: TAMSULOSIN 0.4 MG CAP.ER.24H. PO SCH (08:37)
[2018-06-01] MEDS: OXYBUTYNIN CHLORIDE 5 MG TABLET PO SCH (08:37)
[2018-06-01 08:38] VITALS: BP 137/88
[2018-06-01] MEDS: amLODIPine BESYLATE 10 MG TABLET PO SCH (08:38)
--- NOTE | 2018-06-01 18:35 | PDOC ---
Exam Note: Nguyễn Note: Please also refer to the separate dictated note~for this date of service dictated separately.~Patient seen individually. Discussed the patient with Nursing staff reviewed the chart.~Reviewed interim history and current functioning. Reviewed vital signs,~Labs/ Radiology~and current medications noted below. Continue current treatment with the changes noted in the dictated addendum note Assessment: Vital Signs: Vital Signs Date Time Temp Pulse Resp B/P (MAP) Pulse Ox O2 Delivery O2 Flow Rate FiO2 06/01/18 08:38 63 137/88 06/01/18 05:42 98.6 16 99 05/31/18 16:32 Room Air I&O Intake and Output 06/01/18 07:00 Intake Total 1960 ml Balance 1960 ml Intake Oral 1960 ml Current Medications: Meds: Current Medications Clonazepam (KlonoPIN) 0.5 mg BID92 PO Last administered on 06/01/18at 13:43; Start 04/30/18 at 09:00; Stop 06/01/18 at 15:48; Status DC Non-Formulary Medication (Buspirone Hcl ) 10 mg TID PO ; Start 04/30/18 at 09:00 ; Stop 04/30/18 at 09:00; Status DC Non-Formulary Medication (Divalproex Sodium (Depakote Er)) 1,000 mg HS PO ; Start 04/30/18 at 21:00; Stop 04/30/18 at 21:00; Status DC Non-Formulary Medication (Duloxetine Hcl (Cymbalta)) 60 mg DAILY PO ; Start at 09:00; Stop 04/30/18 at 09:00; Status DC Non-Formulary Medication (Mirtazapine (Remeron)) 7.5 mg HS PO ; Start 04/30/18 at 21:00; Stop 04/30/18 at 21:00; Status DC Non-Formulary Medication (Olanzapine ) 5 mg HS PO ; Start 04/30/18 at 21:00; Stop 04/30/18 at 21:00; Status DC Non-Formulary Medication (Trazodone Hcl ) 50 mg HS PO ; Start 04/30/18 at 21:00 ; Stop 04/30/18 at 21:00; Status DC Acetaminophen (Tylenol) 650 mg PRN Q6HRS PRN PO PAIN / TEMP; Start 04/29/18 at 23:45; Stop 06/01/18 at 15:48; Status DC Gabapentin (Neurontin) 100 mg QID PO ; Start 04/30/18 at 09:00; Stop 04/30/18 at 09:00; Status DC Lactulose (Lactulose) 20 gm TID PO Last administered on 05/27/18at 20:52; Start 04/30/18 at 09:00; Stop 05/28/18 at 13:40; Status DC Oxybutynin Chloride (Ditropan) 2.5 mg BID PO Last administered on 06/01/18at 08 :37; Start 04/30/18 at 09:00; Stop 06/01/18 at 15:48; Status DC Potassium Chloride (Klor-Con) 20 meq DAILY PO Last administered on 06/01/18at 08:37; Start 04/30/18 at 09:00; Stop 06/01/18 at 15:48; Status DC Tamsulosin HCl (Flomax) 0.8 mg DAILY PO Last administered on 06/01/18at 08:37; Start 04/30/18 at 09:00; Stop 06/01/18 at 15:48; Status DC Non-Formulary Medication (Amlodipine Besylate (Norvasc)) 10 mg DAILY PO ; Start 04/30/18 at 09:00; Stop 04/30/18 at 09:00; Status DC Non-Formulary Medication (Baclofen ) 10 mg QID PO ; Start 04/30/18 at 09:00; Stop 04/30/18 at 09:00; Status DC Non-Formulary Medication (Bisacodyl ) 10 mg PRN DAILY PRN RC CONSTIPATION; Start 04/29/18 at 23:45; Stop 04/30/18 at 01:39; Status DC Non-Formulary Medication (Gabapentin ) 800 mg QID PO ; Start 04/30/18 at 09:00; Stop 04/30/18 at 09:00; Status DC Non-Formulary Medication (Levothyroxine Sodium ) 50 mcg DAILYAC PO ; Start 04/30 at 07:30; Stop 04/30/18 at 07:30; Status DC Non-Formulary Medication (Multivitamin/ Iron/Folic Acid (Multivitamin with Iron Tablet)) 1 tab DAILY PO ; Start 04/30/18 at 09:00; Stop 04/30/18 at 09:00; Status DC Multi-Ingredient Ointment (Analgesic [place]) 1 gerri PRN QID PRN TP MUSCLE PAIN; Start 04/29/18 at 23:45; Stop 06/01/18 at 15:48; Status DC Al Hydroxide/Mg Hydroxide (Mylanta Plus Xs) 15 ml PRN AFTMEALHC PRN PO DYSPEPSIA; Start 04/29/18 at 23:45; Stop 06/01/18 at 15:48; Status DC Magnesium Hydroxide (Milk Of Magnesia) 2,400 mg PRN QHS PRN PO CONSTIPATION; Start 04/29/18 at 23:45; Stop 06/01/18 at 15:48; Status DC Nicotine (Nicoderm Cq 14mg) 1 patch DAILY TD Last administered on 05/11/18at 09: 22; Start 04/30/18 at 09:00; Stop 05/12/18 at 11:26; Status DC Gabapentin (Neurontin) 100 mg QID PO Last administered on 06/01/18at 13:43; Start 04/30/18 at 00:30; Stop 06/01/18 at 15:48; Status DC Non-Formulary Medication (Baclofen ) 10 mg QID PO ; Start 04/30/18 at 00:00; Stop 04/30/18 at 01:39; Status DC Non-Formulary Medication (Buspirone Hcl ) 10 mg TID PO ; Start 04/30/18 at 00:00 ; Stop 04/30/18 at 01:39; Status DC Non-Formulary Medication (Divalproex Sodium (Depakote Er)) 1,000 mg HS PO ; Start 04/30/18 at 00:00; Stop 04/30/18 at 01:39; Status DC Non-Formulary Medication (Gabapentin ) 800 mg QID PO ; Start 04/30/18 at 00:00; Stop 04/30/18 at 01:39; Status DC Non-Formulary Medication (Mirtazapine (Remeron)) 7.5 mg HS PO ; Start 04/30/18 at 00:00; Stop 04/30/18 at 01:39; Status DC Non-Formulary Medication (Olanzapine ) 5 mg HS PO ; Start 04/30/18 at 00:00; Stop 04/30/18 at 01:39; Status DC Non-Formulary Medication (Trazodone Hcl ) 50 mg HS PO ; Start 04/30/18 at 00:00 ; Stop 04/30/18 at 01:39; Status DC Bisacodyl (Dulcolax Supp) 10 mg PRN DAILY PRN MI CONSTIPATION; Start 04/30/18 at 01:45; Stop 06/01/18 at 15:48; Status DC Multivitamins/ Calcium (Thera-M Plus) 1 tab DAILY PO Last administered on 06/01at 08:36; Start 04/30/18 at 09:00; Stop 06/01/18 at 15:48; Status DC Amlodipine Besylate (Norvasc) 10 mg DAILY PO Last administered on 06/01/18at 08 :38; Start 04/30/18 at 09:00; Stop 06/01/18 at 15:48; Status DC Levothyroxine Sodium (Synthroid) 50 mcg DAILY07 PO Last administered on at 05:52; Start 04/30/18 at 07:00; Stop 04/30/18 at 15:49; Status DC Gabapentin (Neurontin) 800 mg QID PO Last administered on 06/01/18at 13:43; Start 04/30/18 at 09:00; Stop 06/01/18 at 15:48; Status DC Baclofen (Lioresal) 10 mg QID PO Last administered on 06/01/18at 13:43; Start 04/30/18 at 09:00; Stop 06/01/18 at 15:48; Status DC Mirtazapine (Remeron) 7.5 mg QHS PO Last administered on 05/31/18at 20:40; Start 04/30/18 at 21:00; Stop 06/01/18 at 15:48; Status DC Olanzapine (ZyPREXA) 5 mg HS PO Last administered on 04/30/18at 20:21; Start at 21:00; Stop 05/01/18 at 18:33; Status DC Trazodone HCl (Desyrel) 50 mg QHS PO Last administered on 05/31/18at 20:40; Start 04/30/18 at 21:00; Stop 06/01/18 at 15:48; Status DC Duloxetine HCl (Cymbalta) 60 mg DAILY PO Last administered on 06/01/18at 08:37 ; Start 04/30/18 at 09:00; Stop 06/01/18 at 15:48; Status DC Divalproex Sodium (Depakote Er) 1,000 mg QHS PO Last administered on 04/30/18at 20:21; Start 04/30/18 at 21:00; Stop 05/01/18 at 18:33; Status DC Buspirone HCl (Buspar) 10 mg TID PO Last administered on 06/01/18at 13:44; Start 04/30/18 at 09:00; Stop 06/01/18 at 15:48; Status DC Levothyroxine Sodium (Synthroid) 50 mcg DAILY06 PO Last administered on at 05:57; Start 05/01/18 at 06:00; Stop 06/01/18 at 15:48; Status DC Divalproex Sodium (Depakote Er) 1,500 mg QHS PO Last administered on at 20:39; Start 05/01/18 at 21:00; Stop 06/01/18 at 15:48; Status DC Risperidone (RisperDAL) 1 mg QHS PO Last administered on 05/03/18at 21:23; Start 05/01/18 at 21:00; Stop 05/04/18 at 17:21; Status DC Risperidone (RisperDAL) 1 mg QHS PO Last administered on 05/30/18at 19:44; Start 05/04/18 at 21:00; Stop 05/31/18 at 17:02; Status DC Risperidone (RisperDAL) 0.25 mg QHS PO Last administered on 05/04/18at 20:07; Start 05/04/18 at 21:00; Stop 05/05/18 at 17:39; Status DC Olanzapine (ZyPREXA ZYDIS) 2.5 mg PRN Q2HR PRN PO PSYCHOSIS Last administered on 05/21/18at 17:03; Start 05/04/18 at 23:00; Stop 06/01/18 at 15:48; Status DC Risperidone (RisperDAL) 0.5 mg QHS PO Last administered on 05/16/18at 20:22; Start 05/05/18 at 21:00; Stop 05/17/18 at 16:20; Status DC Trazodone HCl (Desyrel) 50 mg PRN QHS PRN PO Insomnia; Start 05/06/18 at 22:30 ; Stop 06/01/18 at 15:48; Status DC Nicotine (Nicoderm Cq 7mg) 1 patch DAILY TD Last administered on 05/28/18at 08: 00; Start 05/13/18 at 09:00; Stop 05/28/18 at 09:58; Status DC Risperidone (RisperDAL) 0.75 mg QHS PO Last administered on 05/30/18at 19:45; Start 05/17/18 at 21:00; Stop 05/31/18 at 17:02; Status DC Nicotine (Nicoderm Cq 7mg) 1 patch PRN DAILY PRN TD SMOKING CESSATION; Start 05/28/18 at 10:00; Stop 06/01/18 at 15:48; Status DC Risperidone (RisperDAL) 2 mg QHS PO Last administered on 05/31/18at 21:00; Start 05/31/18 at 21:00; Stop 06/01/18 at 15:48; Status DC Active Scripts Active Reported NICODERM CQ 7mg (Nicotine) 1 Each Patch.td24 1 Patch TD PRN DAILY PRN Trazodone Hcl 50 Mg Tablet 50 Mg PO PRN QHS PRN Risperdal (Risperidone) 1 Mg Tablet 1.5 Mg PO HS Analgesic [place] (Methyl Salicylate/Menthol) 28 Gm Oint...g. 1 Gerri TP PRN QID PRN Milk Of Magnesia (Magnesium Hydroxide) 400 Mg/5 Ml Oral.susp 400 Mg PO PRN DAILY PRN Mag-Al Plus Xs Suspension (Mag Hydrox/Al Hydrox/Simeth) 30 Ml Oral.susp 15 Ml PO PRN AFTMEALHC PRN Buspirone Hcl 10 Mg Tablet 10 Mg PO TID Baclofen 10 Mg Tablet 10 Mg PO QID Gabapentin 100 Mg Capsule 100 Mg PO QID Gabapentin 800 Mg Tablet 800 Mg PO QID Levothyroxine Sodium 50 Mcg Tablet 50 Mcg PO DAILYAC Klonopin (Clonazepam) 0.5 Mg Tablet 0.5 Mg PO BID92 Norvasc (Amlodipine Besylate) 10 Mg Tablet 10 Mg PO DAILY Oxybutynin Chloride 5 Mg Tablet 2.5 Mg PO BID Depakote Er (Divalproex Sodium) 500 Mg Tab.er.24h 1,500 Mg PO HS Klor-Con M20 (Potassium Chloride) 20 Meq Tab.er.prt 20 Meq PO DAILY Cymbalta (Duloxetine Hcl) 60 Mg Capsule.dr 60 Mg PO DAILY Multivitamin with Iron Tablet (Multivitamin/Iron/Folic Acid) 1 Each Tablet 1 Tab PO DAILY Flomax (Tamsulosin Hcl) 0.4 Mg Cap.er.24h 0.8 Mg PO DAILY Olanzapine 5 Mg Tablet 2.5 Mg PO PRN Q2HR PRN MDD 10mg/ 24 hrs Remeron (Mirtazapine) 15 Mg Tablet 7.5 Mg PO HS Bisacodyl 10 Mg Supp.rect 10 Mg RC PRN DAILY PRN Tylenol (Acetaminophen) 325 Mg Tablet 650 Mg PO PRN Q6HRS PRN I have reviewed the current psychotropics carefully including drug interactions. Risk benefit ratio favors no change other than as noted in my dictated progress note. Diagnosis: Problems: (1) Schizophrenia, paranoid, chronic with acute exacerbation (2) Impulse control disorder (3) Anxiety disorder CATHY EMERY MD Jun 01, 2018 18:35
--- NOTE | 2018-06-02 17:46 | PN ---
DATE: 05/31/2018 This is a late entry, 05/31/2018, covers the elements not covered in my initial note. SUBJECTIVE: I met with the patient in the evening at some length. The patient slept 7-1/4 hours previous evening. Reviewed information with Dr. Nunez, who had covered for me over the weekend. Nursing staff have noted him talking to himself and walking rapidly down the hallway. When questioned, the patient denies hallucinations. He admits to being somewhat anxious regarding upcoming discharge plans for tomorrow. REVIEW OF SYSTEMS: Ambulation impaired with a walker. No CV, , pulmonary, eye, ENT system symptoms on review. MENTAL STATUS EXAM: Reasonably oriented. Speech is coherent, at times pressured. Abstraction fair, computation impaired, language function intact, attention span short. Mood and affect somewhat withdrawn. LABORATORY DATA: Reviewed. IMPRESSION: Schizoaffective disorder, bipolar type, mixed with psychotic features, in partial remission; anxiety disorder, unspecified. PLAN: Increase Risperdal from 1.75 mg at bedtime to 2 mg at bedtime due to the above observation by the nursing staff. Rest unchanged from initial note. Transition to a lower level of care, 06/01/2018. MAN Ty EMERY MD DR: SARINA/nilda JOB#: [id number] / [id number]
--- NOTE | 2018-06-02 21:22 | DS ---
DATE OF DISCHARGE: 06/01/2018 DISCHARGE SUMMARY/PSYCHIATRIC PROGRESS NOTE This late entry 06/01/2018 covers elements not covered in my initial note. REASON FOR ADMISSION: Please refer to the admission history for details. Briefly, the patient is a 58-year-old male referred to us from [facility], referred by Dr. Dominick Walden, his primary care physician on account of worsening paranoia, delusions. The patient was hiding himself under his bed, talking in whispers that people are trying to hurt him, kill him having active hallucinations. He had failed outpatient psychiatric interventions with myself. Dr. Walden had called me personally himself, was concerned about the patient's safety given the above psychotic symptoms, nonresponsive to treatment, then he was hospitalized for stabilization. SIGNIFICANT FINDINGS AND CLINICAL COURSE: Following admission, the patient was seen daily individually by myself, followed medically per Dr. Rios/Dr. De La Cruz. He remained somewhat withdrawn, psychotic, paranoid initially. Adjustments were made in his psychotropics, seemed to respond to a combination of Risperdal 2 mg at bedtime, BuSpar 10 mg 3 times a day, Klonopin 0.5 mg b.i.d., Depakote ER 1500 mg at bedtime for the Valproic acid level therapeutic at 61, Cymbalta 60 mg a day, trazodone 50 mg at bedtime, Remeron 7.5 at bedtime, Zyprexa p.r.n. CONDITION AT DISCHARGE: Improved prior to discharge. REVIEW OF SYSTEMS: Ambulation impaired with walker. No CV, , pulmonary, eye, ENT system symptoms on review. MENTAL STATUS EXAM: Reasonably oriented. Speech coherent, has some latency. Abstraction fair, computation unable to do serial 7's, remember 2/3 objects at 3 minutes. No active suicidal or homicidal ideation. He remains somewhat withdrawn, but no psychotic symptoms noted. LABORATORY DATA: Reviewed. FINAL DIAGNOSES: Schizoaffective disorder, bipolar type, mixed with psychotic features, in partial remission; anxiety disorder, unspecified; impulse control disorder, unspecified. Rest unchanged from admission. DISCHARGE MEDICATIONS: Please refer to the MRAD. DISCHARGE INSTRUCTIONS: Outpatient psychiatric and medical followup at the [facility]. Time for discharge day management greater than 30 minutes. The patient had been stabilized in our unit. The patient and his sisters have power of assistant district attorney, but insistent that he would not return back to [facility]. The social service staff coordinated with the state agencies for appropriate transition and that partly lengthened his length of stay during this hospitalization, which otherwise might have been somewhat shorter. MAN Ty EMERY MD DR: SARINA/nilda JOB#: [id number] / [id number]
== END 2018-06-01 14:15 | DRG 885 ==
LOC: ER 20:05 → GEROPSY 23:10
PROVIDERS: ADMIT Psychiatry & Neurology Psychiatry; ATTEND Psychiatry & Neurology Psychiatry
DX: F25.0 Schizoaffective disorder, bipolar type (principal); E03.9 Hypothyroidism, unspecified; F63.9 Impulse disorder, unspecified; F90.9 Attention-deficit hyperactivity disorder, unspecified type; N40.0 Benign prostatic hyperplasia without lower urinary tract symptoms; I10 Essential (primary) hypertension; K59.09 Other constipation; R13.10 Dysphagia, unspecified; Z99.3 Dependence on wheelchair; Z79.899 Other long term (current) drug therapy
CPT/HCPCS: 36415; 80053; 80061; 80164; 81001; 82306; 82607; 83036; 83540; 83550; 83735; 84436; 84443; 84480; 85025; 86592; 93005; 99406; 99285-25

== ENCOUNTER 2018-06-21 16:58 | Inpatient (IN) | payer MEDICARE, MEDICAID ==
[~2018-06-21] VITALS: Ht 172.7 cm; Wt 60.1 kg
[~2018-06-21 16:58] MED LIST: ACET325T9 PO; AMLO10TA4 PO; BACL10TA PO; BISA10SU4 RC; BUSP10TA PO; CLON0.5T PO; DIVA500T4 PO; DULO60CA6 PO; GABA-585 PO; GABA800T5 PO; LACT20SO PO; LEVO50TA5 PO; MAG30ORA2 PO; MAGN400O7 PO; METH29OI TP; MIRT15TA PO; MULT-706 PO; NICO1PAT25 TP; NICO1PAT27 TD; OLAN5TAB9 PO; OXYB5TAB7 PO; POTA20TA4 PO; RISP1TAB43 PO; TAMS0.4C97 PO; TRAZ-120 PO
--- NOTE | 2018-06-21 17:34 | PHYS DOC ---
Past History Past Medical History: Depression, Hypertension, Hypothyroid, Schizophrenia, Other Past Surgical History: Other Alcohol Use: None Drug Use: None Adult General Chief Complaint Chief Complaint: PSYCH EVALUATION HPI HPI 58-year-old male presents for medical clearance for behavioral health admission. The patient has a history of paranoid schizophrenia. He has been having hallucinations and increasing paranoia for a few days. He climbed out of his window yesterday and was missing for about 14 hours. He was found in a nearby apartment complex lobby. Patient denies any pain or medical complaints. He is desiring treatment. Review of Systems Review of Systems Constitutional: Denies fever or chills [] Eyes: Denies change in visual acuity, redness, or eye pain [] HENT: Denies nasal congestion or sore throat [] Respiratory: Denies cough or shortness of breath [] Cardiovascular: No additional information not addressed in HPI [] GI: Denies abdominal pain, nausea, vomiting, bloody stools or diarrhea [] : Denies dysuria or hematuria [] Musculoskeletal: Denies back pain or joint pain [] Integument: Denies rash or skin lesions [] Neurologic: Denies headache, focal weakness or sensory changes [] Endocrine: Denies polyuria or polydipsia [] All other systems were reviewed and found to be within normal limits, except as documented in this note. Allergies Allergies Allergies Coded Allergies Type Severity Reaction Last Updated Verified No Known Drug Allergies 04/29/18 No Physical Exam Physical Exam Constitutional: Well developed, well nourished, no acute distress, non-toxic appearance. [] HENT: Normocephalic, atraumatic, bilateral external ears normal, oropharynx moist, no oral exudates, nose normal. [] Eyes: PERRLA, EOMI, conjunctiva normal, no discharge. [] Neck: Normal range of motion, no tenderness, supple, no stridor. [] Cardiovascular:Heart rate regular rhythm, no murmur [] Lungs & Thorax: Bilateral breath sounds clear to auscultation [] Abdomen: Bowel sounds normal, soft, no tenderness, no masses, no pulsatile masses. [] Skin: Warm, dry, no erythema, no rash. [] Back: No tenderness, no CVA tenderness. [] Extremities: No tenderness, no cyanosis, no clubbing, ROM intact, no edema. [] Neurologic: Alert and oriented X 3, normal motor function, normal sensory function, no focal deficits noted. [] Psychologic: Affect normal, judgement normal, mood normal. No current hallucinations. [] EKG EKG Sinus rhythm, rate 70, normal axis, no ST elevations or depressions.[] Radiology/Procedures Radiology/Procedures [] Course & Med Decision Making Course & Med Decision Making Pertinent Labs and Imaging studies reviewed. (See chart for details) Asians labs are unremarkable. There are a couple blood tried spending. His EKG is unremarkable. His urine drug screen is negative. His urinalysis is negative. The patient is medically stable for behavioral health admission. [] Dragon Disclaimer Dragon Disclaimer This electronic medical record was generated, in whole or in part, using a voice recognition dictation system. Departure Departure: Referrals: KENNEDY SALMERON (PCP) VITA HARRISON DO Jun 21, 2018 17:34
[2018-06-21 17:37] LABS: BACTERIA,URINE 0 /HPF (0-FEW); BILIRUBIN,URINE NEG (NEG); CLARITY,URINE CLEAR; COLOR,URINE STRAW; GLUCOSE,URINE NEG (NEG); NITRITE,URINE NEG (NEG); RBC,URINE 0 /HPF (0-2); SQUAMOUS EPITHELIAL CELL,UR OCC /LPF; UROBILINOGEN,URINE 0.2 mg/dL (0.2 mg/dL); WBC,URINE 0 /HPF (0-4)
--- NOTE | 2018-06-21 17:45 | EKG ---
[address] [address] Test Date: 2018-06-21 Test Time: 17:42:04 Pat Name: TYRA COCHRAN Department: Room: Gender: M Return To Factory Clerk: : 1960 Requested By: VITA HARRISON Order Number: [id number] Reading MD: Trey Sadler MD Measurements Intervals [place] Rate: 70 P: 34 PA: 184 QRS: 36 QRSD: 86 T: 52 QT: 370 QTc: 402 Interpretive Statements SINUS RHYTHM Electronically Signed On 06-22-2018 11:00:38 OPENSTACK DEVELOPER by Trey Sadler MD
[2018-06-21 17:47] LABS: BASO # 0.1 x10^3/uL (0.0-0.2); BASO % 1 % (0-3); EOS # 0.2 x10^3/uL (0.0-0.7); EOS % 4 % (0-3); HEMATOCRIT 43.4 % (39.0-53.0); HEMOGLOBIN 14.7 g/dL (13.0-17.5); LYMPH # 2.2 x10^3/uL (1.0-4.8); LYMPH % 35 % (24-48); MEAN CORPUSCULAR HEMOGLOBIN 30 pg (25-35); MEAN CORPUSCULAR HGB CONC 34 g/dL (31-37); MEAN CORPUSCULAR VOLUME 90 fL (79-100); MONO # 0.4 x10^3/uL (0.0-1.1); MONO % 6 % (0-9); NEUT # 3.5 x10^3uL (1.8-7.7); NEUT % 55 % (31-73); PLATELET COUNT 356 x10^3/uL (140-400); RED BLOOD COUNT 4.82 x10^6/uL (4.30-5.70); RED CELL DISTRIBUTION WIDTH 13.4 % (11.5-14.5); WHITE BLOOD COUNT 6.3 x10^3/uL (4.0-11.0)
[2018-06-21 17:51] LABS: BARBITURATES NEG (NEG); BENZODIAZEPINES NEG (NEG); CANNABINOIDS NEG (NEG); COCAINE NEG (NEG); METHADONE NEG (NEG); OPIATES NEG (NEG); PHENCYCLIDINE NEG (NEG)
[2018-06-21 17:52] LABS: AMPHETAMINE/METHAMPHETAMINE NEG (NEG)
[2018-06-21 18:00] LABS: ALBUMIN 3.9 g/dL (3.4-5.0); ALBUMIN/GLOBULIN RATIO 1.1 (1.0-1.7); CALCIUM 8.6 mg/dL (8.5-10.1); CREATININE 0.8 mg/dL (0.7-1.3); GFR 99.6; MAGNESIUM 2.2 mg/dL (1.8-2.4); POTASSIUM 3.5 mmol/L (3.5-5.1); TOTAL BILIRUBIN 0.3 mg/dL (0.2-1.0); TOTAL PROTEIN 7.6 g/dL (6.4-8.2)
[2018-06-21] MEDS ORDERED: OLAN5TAB3 PO (20:15)
[2018-06-21] MEDS ORDERED: MAG HYDROX/AL HYDROX/SIMETH 30 ML ORAL.SUSP PO PRN (20:15)
[2018-06-21 20:17] VITALS: BP 123/84
[2018-06-21] MEDS ORDERED: BISACODYL 10 MG SUPP.RECT PR PRN (20:45)
[2018-06-21] MEDS: busPIRone 10 MG TABLET. PO SCH (21:00)
[2018-06-21] MEDS: OXYBUTYNIN CHLORIDE 5 MG TABLET PO SCH (21:00)
[2018-06-21] MEDS: OLANZapine 5 MG TABLET PO SCH (21:00)
[2018-06-21] MEDS: GABAPENTIN 300 MG CAPSULE. PO SCH (21:00)
[2018-06-21] MEDS: BACLOFEN 10 MG TABLET PO SCH (21:00)
[2018-06-21] MEDS: clonazePAM 0.5 MG TABLET PO SCH (21:00)
[2018-06-21] MEDS ORDERED: NON FORMULARY ITEM (Gabapentin 800 MG) PO SCH (21:00)
[2018-06-21] MEDS: risperiDONE 1 MG TABLET. PO SCH (21:00)
[2018-06-21] MEDS: DIVALPROEX ER 500 MG TAB.ER.24H PO SCH (21:00)
--- NOTE | 2018-06-21 23:09 | PDOC ---
Exam Note: Nguyễn Note: Please also refer to the separate dictated note~for this date of service dictated separately. Discussed the patient with Nursing staff reviewed the chart.~Reviewed interim history and current functioning. Reviewed vital signs,~ Labs/ Radiology~and current medications noted below. Continue current treatment with the changes noted in the dictated addendum note Assessment: Vital Signs: Vital Signs Date Time Temp Pulse Resp B/P (MAP) Pulse Ox O2 Delivery O2 Flow Rate FiO2 06/21/18 20:17 98.4 71 18 123/84 (97) 98 06/21/18 18:15 Room Air Labs: Laboratory Tests Test 06/21/18 17:05 06/21/18 17:20 Urine Collection Type Unknown Urine Color Straw Urine Clarity Clear Urine pH 7.0 Urine Specific [place] 1.010 Urine Protein Neg (NEG-TRACE) Urine Glucose (UA) Neg mg/dL (NEG) Urine Ketones (Stick) Neg mg/dL (NEG) Urine Blood Neg (NEG) Urine Nitrite Neg (NEG) Urine Bilirubin Neg (NEG) Urine Urobilinogen Dipstick 0.2 mg/dL (0.2 mg/dL) Urine Leukocyte Esterase Neg (NEG) Urine RBC 0 /HPF (0-2) Urine WBC 0 /HPF (0-4) Urine Squamous Epithelial Cells Occ /LPF Urine Bacteria 0 /HPF (0-FEW) Urine Opiates Screen Neg (NEG) Urine Methadone Screen Neg (NEG) Urine Barbiturates Neg (NEG) Urine Phencyclidine Screen Neg (NEG) Urine Amphetamine/Methamphetamine Neg (NEG) Urine Benzodiazepines Screen Neg (NEG) Urine Cocaine Screen Neg (NEG) Urine Cannabinoids Screen Neg (NEG) Urine Ethyl Alcohol Neg (NEG) White Blood Count 6.3 x10^3/uL (4.0-11.0) Red Blood Count 4.82 x10^6/uL (4.30-5.70) Hemoglobin 14.7 g/dL (13.0-17.5) Hematocrit 43.4 % (39.0-53.0) Mean Corpuscular Volume 90 fL (79-100) Mean Corpuscular Hemoglobin 30 pg (25-35) Mean Corpuscular Hemoglobin Concent 34 g/dL (31-37) Red Cell Distribution Width 13.4 % (11.5-14.5) Platelet Count 356 x10^3/uL (140-400) Neutrophils (%) (Auto) 55 % (31-73) Lymphocytes (%) (Auto) 35 % (24-48) Monocytes (%) (Auto) 6 % (0-9) Eosinophils (%) (Auto) 4 % (0-3) H Basophils (%) (Auto) 1 % (0-3) Neutrophils # (Auto) 3.5 x10^3uL (1.8-7.7) Lymphocytes # (Auto) 2.2 x10^3/uL (1.0-4.8) Monocytes # (Auto) 0.4 x10^3/uL (0.0-1.1) Eosinophils # (Auto) 0.2 x10^3/uL (0.0-0.7) Basophils # (Auto) 0.1 x10^3/uL (0.0-0.2) Sodium Level 135 mmol/L (136-145) L Potassium Level 3.5 mmol/L (3.5-5.1) Chloride Level 97 mmol/L (98-107) L Carbon Dioxide Level 31 mmol/L (21-32) Anion Gap 7 (6-14) Blood Urea Nitrogen 8 mg/dL (8-26) Creatinine 0.8 mg/dL (0.7-1.3) Estimated GFR (Cockcroft-Gault) 99.6 BUN/Creatinine Ratio 10 (6-20) Glucose Level 141 mg/dL (70-99) H Calcium Level 8.6 mg/dL (8.5-10.1) Magnesium Level 2.2 mg/dL (1.8-2.4) Total Bilirubin 0.3 mg/dL (0.2-1.0) Aspartate Amino Transferase (AST) 15 U/L (15-37) Alanine Aminotransferase (ALT) 22 U/L (16-63) Alkaline Phosphatase 81 U/L (46-116) Total Protein 7.6 g/dL (6.4-8.2) Albumin 3.9 g/dL (3.4-5.0) Albumin/Globulin Ratio 1.1 (1.0-1.7) Current Medications: Meds: Current Medications Acetaminophen (Tylenol) 650 mg PRN Q6HRS PRN PO PAIN / TEMP; Start 06/21/18 at 20:15 Clonazepam (KlonoPIN) 1 mg BID PO ; Start 06/21/18 at 21:00 Gabapentin (Neurontin) 900 mg QID PO ; Start 06/21/18 at 21:00 Al Hydroxide/Mg Hydroxide (Mylanta Plus Xs) 15 ml PRN AFTMEALHC PRN PO GI SYMPTOMS; Start 06/21/18 at 20:15 Magnesium Hydroxide (Milk Of Magnesia) 400 mg PRN DAILY PRN PO CONSTIPATION; Start 06/21/18 at 20:15 Multi-Ingredient Ointment (Analgesic [place]) 1 gerri PRN QID PRN TP MUSCLE PAIN; Start 06/21/18 at 20:15 Oxybutynin Chloride (Ditropan) 2.5 mg BID PO ; Start 06/21/18 at 21:00 Potassium Chloride (Klor-Con) 20 meq DAILY PO ; Start 06/22/18 at 09:00 Tamsulosin HCl (Flomax) 0.8 mg DAILY PO ; Start 06/22/18 at 09:00 Amlodipine Besylate (Norvasc) 10 mg DAILY PO ; Start 06/22/18 at 09:00 Baclofen (Lioresal) 10 mg QID PO ; Start 06/21/18 at 21:00 Bisacodyl (Dulcolax Supp) 10 mg PRN DAILY PRN MI CONSTIPATION; Start 06/21/18 at 20:45 Buspirone HCl (Buspar) 10 mg TID PO ; Start 06/21/18 at 21:00 Divalproex Sodium (Depakote Er) 1,500 mg HS PO ; Start 06/21/18 at 21:00 Non-Formulary Medication (Gabapentin ) 800 mg QID PO ; Start 06/21/18 at 21:00 ; Status UNV Levothyroxine Sodium (Synthroid) 50 mcg DAILY06 PO ; Start 06/22/18 at 06:00 Multivitamins/ Calcium (Thera-M Plus) 1 tab DAILY PO ; Start 06/22/18 at 09:00 Olanzapine (ZyPREXA ZYDIS) 2.5 mg PRN Q2HR PRN PO PSYCHOSIS; Start 06/21/18 at 20:45 Olanzapine (ZyPREXA) 5 mg BID PO ; Start 06/21/18 at 21:00 Risperidone (RisperDAL) 1.5 mg HS PO ; Start 06/21/18 at 21:00 Trazodone HCl (Desyrel) 50 mg PRN QHS PRN PO INSOMNIA; Start 06/21/18 at 21:00 Active Scripts Active Reported Zyprexa (Olanzapine) 5 Mg Tablet 5 Mg PO BID NICODERM CQ 7mg (Nicotine) 1 Each Patch.td24 1 Patch TD PRN DAILY PRN Trazodone Hcl 50 Mg Tablet 50 Mg PO PRN QHS PRN Risperdal (Risperidone) 1 Mg Tablet 1.5 Mg PO HS Analgesic [place] (Methyl Salicylate/Menthol) 28 Gm Oint...g. 1 Gerri TP PRN QID PRN Milk Of Magnesia (Magnesium Hydroxide) 400 Mg/5 Ml Oral.susp 400 Mg PO PRN DAILY PRN Mag-Al Plus Xs Suspension (Mag Hydrox/Al Hydrox/Simeth) 30 Ml Oral.susp 15 Ml PO PRN AFTMEALHC PRN Buspirone Hcl 10 Mg Tablet 10 Mg PO TID Baclofen 10 Mg Tablet 10 Mg PO QID Gabapentin 100 Mg Capsule 100 Mg PO QID Gabapentin 800 Mg Tablet 800 Mg PO QID Levothyroxine Sodium 50 Mcg Tablet 50 Mcg PO DAILYAC Klonopin (Clonazepam) 0.5 Mg Tablet 1 Mg PO BID Norvasc (Amlodipine Besylate) 10 Mg Tablet 10 Mg PO DAILY Oxybutynin Chloride 5 Mg Tablet 2.5 Mg PO BID Depakote Er (Divalproex Sodium) 500 Mg Tab.er.24h 1,500 Mg PO HS Klor-Con M20 (Potassium Chloride) 20 Meq Tab.er.prt 20 Meq PO DAILY Cymbalta (Duloxetine Hcl) 60 Mg Capsule.dr 60 Mg PO DAILY Multivitamin with Iron Tablet (Multivitamin/Iron/Folic Acid) 1 Each Tablet 1 Tab PO DAILY Flomax (Tamsulosin Hcl) 0.4 Mg Cap.er.24h 0.8 Mg PO DAILY Olanzapine 5 Mg Tablet 2.5 Mg PO PRN Q2HR PRN MDD 10mg/ 24 hrs Remeron (Mirtazapine) 15 Mg Tablet 7.5 Mg PO HS Bisacodyl 10 Mg Supp.rect 10 Mg RC PRN DAILY PRN Tylenol (Acetaminophen) 325 Mg Tablet 650 Mg PO PRN Q6HRS PRN I have reviewed the current psychotropics carefully including drug interactions. Risk benefit ratio favors no change other than as noted in my dictated progress note. Diagnosis: Problems: (1) Anxiety disorder (2) Impulse control disorder (3) Schizophrenia, paranoid, chronic with acute exacerbation CATHY EMERY MD Jun 21, 2018 23:09
[2018-06-21] MEDS ORDERED: NICOTINE 7MG PATCH. TD PRN (23:30)
[2018-06-22] MEDS: LEVOTHYROXINE 50 MCG TABLET PO SCH (05:23)
[2018-06-22 05:55] VITALS: BP 135/79
[2018-06-22] MEDS: TAMSULOSIN 0.4 MG CAP.ER.24H. PO SCH (09:07)
[2018-06-22] MEDS: GABAPENTIN 300 MG CAPSULE. PO SCH ×4 (09:07→19:59)
[2018-06-22] MEDS: amLODIPine BESYLATE 10 MG TABLET PO SCH (09:08)
[2018-06-22] MEDS: POTASSIUM CHLORIDE 20 MEQ TABLET.ER. PO SCH (09:08)
[2018-06-22] MEDS: OLANZapine 5 MG TABLET PO SCH ×2 (09:08→19:55)
[2018-06-22] MEDS: clonazePAM 0.5 MG TABLET PO SCH ×2 (09:08→19:56)
[2018-06-22] MEDS: BACLOFEN 10 MG TABLET PO SCH ×4 (09:08→19:59)
[2018-06-22] MEDS: MULTIVITAMIN with MINERAL TABLET. PO SCH (09:08)
[2018-06-22] MEDS: busPIRone 10 MG TABLET. PO SCH ×3 (09:08→19:55)
[2018-06-22] MEDS: OXYBUTYNIN CHLORIDE 5 MG TABLET PO SCH ×2 (09:18→20:24)
[2018-06-22 13:16] LABS: THYROID STIM HORMONE (TSH) 2.202 uIU/mL (0.358-3.740)
[2018-06-22 15:33] VITALS: BP 99/66
[2018-06-22 18:10] LABS: THYROXINE 7.1 ug/dL (4.5-12.0)
[2018-06-22] MEDS: risperiDONE 1 MG TABLET. PO SCH (19:56)
[2018-06-22] MEDS: DIVALPROEX ER 500 MG TAB.ER.24H PO SCH (19:58)
[2018-06-22 20:07] LABS: HEMOGLOBIN A1C 5.2 % (4.8-5.6)
--- NOTE | 2018-06-22 22:46 | PDOC ---
Exam Note: Nguyễn Note: Please also refer to the separate dictated note~for this date of service dictated separately.~Patient seen individually. Discussed the patient with Nursing staff reviewed the chart.~Reviewed interim history and current functioning. Reviewed vital signs,~Labs/ Radiology~and current medications noted below. Continue current treatment with the changes noted in the dictated addendum note Assessment: Vital Signs: Vital Signs Date Time Temp Pulse Resp B/P (MAP) Pulse Ox O2 Delivery O2 Flow Rate FiO2 06/22/18 15:33 98.3 76 99/66 (77) 98 Room Air 06/22/18 05:55 20 I&O Intake and Output 06/22/18 07:00 Intake Total 0 ml Balance 0 ml Intake Oral 0 ml Labs: Laboratory Tests Test 06/22/18 06:25 Hemoglobin A1c 5.2 % (4.8-5.6) Triglycerides Level 59 mg/dL (0-150) Cholesterol Level 168 mg/dL (0-200) LDL Cholesterol, Calculated 90 mg/dL (0-100) VLDL Cholesterol, Calculated 11 mg/dL (0-40) Non-HDL Cholesterol Calculated 101 mg/dL (0-129) HDL Cholesterol 67 mg/dL (40-60) H Cholesterol/HDL Ratio 2.0 25-Hydroxy Vitamin D Total 24.2 ng/mL (30-100) L Thyroid Stimulating Hormone (TSH) 2.202 uIU/mL (0.358-3.740) Thyroxine (T4) 7.1 ug/dL (4.5-12.0) Total Triiodothyronine (TT3) 110 ng/dL (71-180) Treponema pallidum Antibody Nonreactive (Nonreactive) Current Medications: Meds: Current Medications Acetaminophen (Tylenol) 650 mg PRN Q6HRS PRN PO PAIN / TEMP; Start 06/21/18 at 20:15 Clonazepam (KlonoPIN) 1 mg BID PO Last administered on 06/22/18at 19:56; Start 06/21/18 at 21:00 Gabapentin (Neurontin) 900 mg QID PO Last administered on 06/22/18at 19:59; Start 06/21/18 at 21:00 Al Hydroxide/Mg Hydroxide (Mylanta Plus Xs) 15 ml PRN AFTMEALHC PRN PO GI SYMPTOMS; Start 06/21/18 at 20:15 Magnesium Hydroxide (Milk Of Magnesia) 400 mg PRN DAILY PRN PO CONSTIPATION; Start 06/21/18 at 20:15 Multi-Ingredient Ointment (Analgesic [place]) 1 gerri PRN QID PRN TP MUSCLE PAIN; Start 06/21/18 at 20:15 Oxybutynin Chloride (Ditropan) 2.5 mg BID PO Last administered on 06/22/18 20 :24; Start 06/21/18 at 21:00 Potassium Chloride (Klor-Con) 20 meq DAILY PO Last administered on 06/22/18 09:08; Start 06/22/18 at 09:00 Tamsulosin HCl (Flomax) 0.8 mg DAILY PO Last administered on 06/22/18 09:07; Start 06/22/18 at 09:00 Amlodipine Besylate (Norvasc) 10 mg DAILY PO Last administered on 06/22/18 09 :08; Start 06/22/18 at 09:00 Baclofen (Lioresal) 10 mg QID PO Last administered on 06/22/18 19:59; Start 06/21/18 at 21:00 Bisacodyl (Dulcolax Supp) 10 mg PRN DAILY PRN [place] CONSTIPATION; Start 06/21/18 at 20:45 Buspirone HCl (Buspar) 10 mg TID PO Last administered on 06/22/18 19:55; Start 06/21/18 at 21:00 Divalproex Sodium (Depakote Er) 1,500 mg HS PO Last administered on 06/22/18 19:58; Start 06/21/18 at 21:00 Non-Formulary Medication (Gabapentin ) 800 mg QID PO ; Start 06/21/18 at 21:00 ; Status UNV Levothyroxine Sodium (Synthroid) 50 mcg DAILY06 PO Last administered on 05:23; Start 06/22/18 at 06:00 Multivitamins/ Calcium (Thera-M Plus) 1 tab DAILY PO Last administered on 06/22 09:08; Start 06/22/18 at 09:00 Olanzapine (ZyPREXA ZYDIS) 2.5 mg PRN Q2HR PRN PO PSYCHOSIS; Start 06/21/18 at 20:45 Olanzapine (ZyPREXA) 5 mg BID PO Last administered on 11/13/18at 19:55; Start 06/21/18 at 21:00 Risperidone (RisperDAL) 1.5 mg HS PO Last administered on 06/22/18at 19:56; Start 06/21/18 at 21:00 Trazodone HCl (Desyrel) 50 mg PRN QHS PRN PO INSOMNIA; Start 06/21/18 at 21:00 Nicotine (Nicoderm Cq 7mg) 1 patch PRN DAILY PRN TD SMOKING CESSATION; Start 06/21/18 at 23:30 Active Scripts Active Reported Zyprexa (Olanzapine) 5 Mg Tablet 5 Mg PO BID NICODERM CQ 7mg (Nicotine) 1 Each Patch.td24 1 Patch TD PRN DAILY PRN Trazodone Hcl 50 Mg Tablet 50 Mg PO PRN QHS PRN Risperdal (Risperidone) 1 Mg Tablet 1.5 Mg PO HS Analgesic [place] (Methyl Salicylate/Menthol) 28 Gm Oint...g. 1 Gerri TP PRN QID PRN Milk Of Magnesia (Magnesium Hydroxide) 400 Mg/5 Ml Oral.susp 400 Mg PO PRN DAILY PRN Mag-Al Plus Xs Suspension (Mag Hydrox/Al Hydrox/Simeth) 30 Ml Oral.susp 15 Ml PO PRN AFTMEALHC PRN Buspirone Hcl 10 Mg Tablet 10 Mg PO TID Baclofen 10 Mg Tablet 10 Mg PO QID Gabapentin 100 Mg Capsule 100 Mg PO QID Gabapentin 800 Mg Tablet 800 Mg PO QID Levothyroxine Sodium 50 Mcg Tablet 50 Mcg PO DAILYAC Klonopin (Clonazepam) 0.5 Mg Tablet 1 Mg PO BID Norvasc (Amlodipine Besylate) 10 Mg Tablet 10 Mg PO DAILY Oxybutynin Chloride 5 Mg Tablet 2.5 Mg PO BID Depakote Er (Divalproex Sodium) 500 Mg Tab.er.24h 1,500 Mg PO HS Klor-Con M20 (Potassium Chloride) 20 Meq Tab.er.prt 20 Meq PO DAILY Cymbalta (Duloxetine Hcl) 60 Mg Capsule.dr 60 Mg PO DAILY Multivitamin with Iron Tablet (Multivitamin/Iron/Folic Acid) 1 Each Tablet 1 Tab PO DAILY Flomax (Tamsulosin Hcl) 0.4 Mg Cap.er.24h 0.8 Mg PO DAILY Olanzapine 5 Mg Tablet 2.5 Mg PO PRN Q2HR PRN MDD 10mg/ 24 hrs Remeron (Mirtazapine) 15 Mg Tablet 7.5 Mg PO HS Bisacodyl 10 Mg Supp.rect 10 Mg RC PRN DAILY PRN Tylenol (Acetaminophen) 325 Mg Tablet 650 Mg PO PRN Q6HRS PRN I have reviewed the current psychotropics carefully including drug interactions. Risk benefit ratio favors no change other than as noted in my dictated progress note. Diagnosis: Problems: (1) Anxiety disorder (2) Impulse control disorder (3) Schizophrenia, paranoid, chronic with acute exacerbation CATHY EMERY MD Jun 22, 2018 22:46
--- NOTE | 2018-06-23 00:54 | CONS ---
DATE OF CONSULTATION: REASON FOR CONSULTATION: Medical management. HISTORY OF PRESENT ILLNESS: The patient is a 58-year-old male patient who was admitted on account of elopement from facility. He was crawling out of the window, hallucinating, delusional, extremely paranoid. He hides under his bed, thinks people are trying to kill him. All this in a background of schizoaffective disorder, bipolar type, mixed with psychosis. The patient was actually discharged from this facility recently. When I questioned him, he said that he feels that he can live outside on his own, find a job to work and he has brother and sister that might help him, although he does not know their telephone numbers or their addressees. PAST MEDICAL HISTORY: Significant for hypertension, hypothyroidism, dysphagia, spinal stenosis. PAST PSYCHIATRIC HISTORY: Significant for anxiety, major depressive disorder, and attention deficit hyperactivity disorder as well as schizoaffective disorder. PAST SURGICAL HISTORY: Significant for back surgery. ALLERGIES: He has no known drug allergies. FAMILY HISTORY: Unremarkable. Both parents are . SOCIAL HISTORY: He is single, never , has no children. He continues to smoke, but did stop drinking alcohol about 14 years ago. He does not use any recreational drugs. REVIEW OF SYSTEMS: As per history of present illness. MEDICATIONS: He is currently on following medications: He is on tamsulosin 0.8 mg at bedtime, baclofen 10 mg 4 times a day, nicotine patch 47 mg topically daily for smoking cessation, amlodipine 10 mg daily, analgesic balm applied topically 4 times a day, acetaminophen 650 mg every 6 hours, clonazepam 0.5 mg twice a day, divalproex sodium 1500 mg at bedtime, gabapentin 800 mg 4 times a day, gabapentin 100 mg 4 times a day, duloxetine for Cymbalta 60 mg once a day, mirtazapine 7.5 mg at bedtime, trazodone 50 mg at bedtime, olanzapine 2.5 mg every 2 hours and olanzapine 5 mg twice a day, Risperdal 1.5 mg at bedtime, buspirone 10 mg 3 times a day, potassium chloride 20 mEq daily, Mylanta 15 mL after meals, bisacodyl 10 mg suppositories rectally daily p.r.n. for constipation, milk of magnesia 30 mL p.o. daily p.r.n. for constipation, levothyroxine sodium 50 mcg daily, oxybutynin 2.5 mg p.o. b.i.d., multivitamin with mineral 1 tablet once a day. PHYSICAL EXAMINATION: GENERAL: When I examined him, he was sitting on the edge of the bed comfortably in no apparent distress, slightly pale, no jaundice, cyanosis, or thyromegaly. No jugular venous distension. No limb edema. VITAL SIGNS: His heart rate was 87, blood pressure was 135/79, temperature was 97.5, respiratory rate was 20, and oxygen saturation was 97% on room air. HEAD, EYES, EARS, NOSE, AND THROAT: Showed normocephalic, atraumatic. NECK: Supple. There is marked torticollis, with head tilted to the right side. HEART: Showed normal first and second heart sounds with no gallop, rub, or murmur. CHEST: Clear to auscultation. No crepitation or rhonchi. ABDOMEN: Slightly distended, soft, nontender. NEUROLOGIC: He is awake, alert, responding appropriately. All cranial nerves intact. The patient is able to ambulate with a walker or without one. He has fixed flexion contracture of his right upper and right lower extremity. LABORATORY WORK: Showed a white cell count of 6300, hemoglobin 14.7, hematocrit 43, MCV 90, and platelet count 356,000. His chemistry showed a serum sodium 135, potassium 3.5, chloride 97, bicarbonate 31, anion gap of 7, BUN 8, creatinine 0.8, estimated GFR was 99 mL per minute, glucose 141, calcium was 8.6, magnesium was 2.2. Total bilirubin, AST, ALT, alkaline phosphatase were normal. His total protein was 7.6, albumin 3.9. Urinalysis was essentially unremarkable and toxic screen was essentially negative. IMPRESSION: In summary, this is a 58-year-old male patient who was admitted on the account of elopement from the facility by crawling out of the window, hallucinating, delusional, extremely paranoid, hides under his bed and thinks the people are trying to kill him, all this in the background of schizoaffective disorder, bipolar type, mixed with psychosis. Medically, he is known to have hypertension, benign prostatic hypertrophy, peripheral neuropathy, hypothyroidism. Medically, he seemed to be all in all stable. His vital signs are within acceptable range as well as lab work. I will obviously continue with all his current medications. I will follow his lab works that are still pending at the time of this dictation and make any necessary recommendations. Thank you, Dr. Howard for allowing me to participate in the care of this patient. LOKESH KEBEDE MD DR: ROSELINE/nilda JOB#: [id number] / [id number]
[2018-06-23] MEDS: LEVOTHYROXINE 50 MCG TABLET PO SCH (05:54)
[2018-06-23 05:58] VITALS: BP 126/82
[2018-06-23] MEDS: BACLOFEN 10 MG TABLET PO SCH ×4 (08:47→19:44)
[2018-06-23] MEDS: clonazePAM 0.5 MG TABLET PO SCH ×2 (08:47→19:46)
[2018-06-23] MEDS: GABAPENTIN 300 MG CAPSULE. PO SCH ×4 (08:47→19:43)
[2018-06-23] MEDS: POTASSIUM CHLORIDE 20 MEQ TABLET.ER. PO SCH (08:47)
[2018-06-23] MEDS: amLODIPine BESYLATE 10 MG TABLET PO SCH (08:47)
[2018-06-23] MEDS: MULTIVITAMIN with MINERAL TABLET. PO SCH (08:47)
[2018-06-23] MEDS: OLANZapine 5 MG TABLET PO SCH (08:47)
[2018-06-23] MEDS: OXYBUTYNIN CHLORIDE 5 MG TABLET PO SCH ×2 (08:47→19:44)
[2018-06-23] MEDS: TAMSULOSIN 0.4 MG CAP.ER.24H. PO SCH (08:47)
[2018-06-23] MEDS: busPIRone 10 MG TABLET. PO SCH ×3 (08:47→19:44)
--- NOTE | 2018-06-23 15:11 | HP ---
ADMIT DATE: 06/22/2018 PSYCHIATRIC ADMISSION HISTORY/EVALUATION This is a late entry, date of service 06/22/2018 covers elements not covered in my initial note. I met with the patient evening of 06/22/2018 for this evaluation and discussed with the nursing staff and sponsorship coordinator, Adelaide Mcdonnell several times prior to that. IDENTIFYING DATA: The patient is a 58-year-old male, who was last inpatient with us a few weeks back, stabilized for his diagnosis of schizoaffective disorder, bipolar type. He refused to return back to [facility], was transferred to [facility]. He has been seeing Dr. Adrianne Subramanian, psychiatrist, had been getting increasingly depressed, psychotic, paranoid, hiding under the bed. Reportedly on around 06/20/2018, he opened the window of his room and escaped from the facility in extreme weather. It was reported on the television news, police were trying to find him and they ultimately found him in an apartment about a mile from his nursing facility and he is referred back to us for psychiatric stabilization. CHIEF COMPLAINT: "I did not jump out of the window. I opened the window, pushed the screen open and then walked away. I did not want to be there. I have been afraid." HISTORY OF PRESENT ILLNESS: The patient has a history of schizoaffective disorder, bipolar type. He has had an extensive treatment in the past including state facilities at the [facility] and then I followed him at [facility] during his last hospitalization here on the Geriatric Psychiatry Unit. He seemed to be stabilized and then was transferred to [facility] since he refused to return to [place]. Initially, he did well, but despite treatment with Dr. Subramanian from a psychiatric standpoint, he continued to deteriorate. Reportedly, he became more psychotic, paranoid, was having sleep and appetite changes, hiding under the bed and table, afraid someone is going to hurt him. He finally absconded from the facility as noted above. He does have a history of mood swings. Denies active suicidal or homicidal ideation. I discussed with him at some length circumstances what transpired after he left the facility. He states he knocked on an apartment building, told them his car had broken down and they gave him a bed and some food and he stayed warm. He had it in himself enough to make sure he was safe, which is a positive. PAST PSYCHIATRIC HISTORY: Positive for schizoaffective disorder, bipolar type, mixed with psychotic features. PAST MEDICAL HISTORY: Positive for hypertension, spinal stenosis, history of ADHD, BPH, hypothyroidism, chronic constipation, dysphagia, and neck pain. ACCU-CHEKS: None. DRUG ALLERGIES: Negative. CODE STATUS: Full code. DIET: Regular. Takes his medications whole. Ambulates with a walker up ad dung. CURRENT PSYCHOTROPICS: Trazodone 50 mg at bedtime p.r.n., BuSpar 10 mg t.i.d., Klonopin 1 mg b.i.d., Zyprexa 5 mg b.i.d., Depakote DR 1500 mg at bedtime, Risperdal 1.5 mg p.o. at bedtime. FAMILY HISTORY: Noncontributory. SOCIAL HISTORY: No alcohol, drug abuse, physical, sexual or elder abuse. He is not known to be a perpetrator. We are going to request an psychological evaluation with Dr. Brennan to assess the patient's capacity to make decisions for himself. For now, the patient has been voluntarily admitted with the knowledge of his 2 sisters, who are his DPOA. REACTION TO HOSPITALIZATION: The patient accepting of it. ASSETS: Supportive sisters. MENTAL STATUS EXAM: The patient was seen individually evening of 06/22/2018. He ambulates with a walker. He seemed to remember me quite clearly, talked at some length about circumstances of absconding from the senior living reasons for this and his paranoia. Speech coherent, has some latency is fixated on the neck pain. Abstraction fair, computation impaired, language function intact, attention span short. Mood and affect somewhat anxious, labile, depressed. No active suicidal or homicidal ideation. Insight limited, judgment marginal. LABORATORY DATA: Reviewed. IMPRESSION: Schizoaffective disorder, bipolar type, mixed with psychotic features; anxiety disorder, unspecified; cognitive disorder, unspecified; history of major depressive disorder with psychotic features. Rest as above. PLAN: Admit to Geropsychiatry Unit at [facility]. I will see the patient daily individually from a psychiatric standpoint, medical followup with Dr. Rios/Dr. De La Cruz. Continue the patient on his current psychotropics, observe baseline, then make changes as noted post-clinical assessment. MAN Ty EMERY MD DR: SARINA/nilda JOB#: [id number] / [id number]
[2018-06-23 16:52] VITALS: BP 125/85
[2018-06-23] MEDS: CHOLECALCIFEROL (VITAMIN D3) 50,000 UNIT CAPSULE PO SCH (17:35)
[2018-06-23 18:39] LABS: VAL ACID 49 mcg/mL (50-100)
[2018-06-23] MEDS: DIVALPROEX ER 500 MG TAB.ER.24H PO SCH (19:44)
[2018-06-23] MEDS: risperiDONE 1 MG TABLET. PO SCH (19:45)
--- NOTE | 2018-06-23 22:44 | PDOC ---
Exam Note: Nguyễn Note: Please also refer to the separate dictated note~for this date of service dictated separately.~Patient seen individually. Discussed the patient with Nursing staff reviewed the chart.~Reviewed interim history and current functioning. Reviewed vital signs,~Labs/ Radiology~and current medications noted below. Continue current treatment with the changes noted in the dictated addendum note Assessment: Vital Signs: Vital Signs Date Time Temp Pulse Resp B/P (MAP) Pulse Ox O2 Delivery O2 Flow Rate FiO2 06/23/18 16:52 98.1 95 20 125/85 (98) 95 Room Air I&O Intake and Output 06/23/18 07:00 Intake Total 1320 ml Balance 1320 ml Intake Oral 1320 ml # Voids 1 Labs: Laboratory Tests Test 06/23/18 18:00 Valproic Acid Level 49 mcg/mL (50-100) L Valproic Acid Last Dose Date 06-22-18 Valproic Acid Last Dose Time 2100 Current Medications: Meds: Current Medications Acetaminophen (Tylenol) 650 mg PRN Q6HRS PRN PO PAIN / TEMP; Start 06/21/18 at 20:15 Clonazepam (KlonoPIN) 1 mg BID PO Last administered on 06/23/18at 19:46; Start 06/21/18 at 21:00 Gabapentin (Neurontin) 900 mg QID PO Last administered on 06/23/18at 19:43; Start 06/21/18 at 21:00 Al Hydroxide/Mg Hydroxide (Mylanta Plus Xs) 15 ml PRN AFTMEALHC PRN PO GI SYMPTOMS; Start 06/21/18 at 20:15 Magnesium Hydroxide (Milk Of Magnesia) 400 mg PRN DAILY PRN PO CONSTIPATION; Start 06/21/18 at 20:15 Multi-Ingredient Ointment (Analgesic [place]) 1 gerri PRN QID PRN TP MUSCLE PAIN; Start 06/21/18 at 20:15 Oxybutynin Chloride (Ditropan) 2.5 mg BID PO Last administered on 06/23/18at 19 :44; Start 06/21/18 at 21:00 Potassium Chloride (Klor-Con) 20 meq DAILY PO Last administered on 06/23/18at 08:47; Start 06/22/18 at 09:00 Tamsulosin HCl (Flomax) 0.8 mg DAILY PO Last administered on 06/23/18at 08:47; Start 06/22/18 at 09:00 Amlodipine Besylate (Norvasc) 10 mg DAILY PO Last administered on 06/23/18 08 :47; Start 06/22/18 at 09:00 Baclofen (Lioresal) 10 mg QID PO Last administered on 06/23/18 19:44; Start 06/21/18 at 21:00 Bisacodyl (Dulcolax Supp) 10 mg PRN DAILY PRN [place] CONSTIPATION; Start 06/21/18 at 20:45 Buspirone HCl (Buspar) 10 mg TID PO Last administered on 06/23/18 19:44; Start 06/21/18 at 21:00 Divalproex Sodium (Depakote Er) 1,500 mg HS PO Last administered on 06/23/18 19:44; Start 06/21/18 at 21:00 Non-Formulary Medication (Gabapentin ) 800 mg QID PO ; Start 06/21/18 at 21:00 ; Status UNV Levothyroxine Sodium (Synthroid) 50 mcg DAILY06 PO Last administered on at 05:54; Start 06/22/18 at 06:00 Multivitamins/ Calcium (Thera-M Plus) 1 tab DAILY PO Last administered on 06/23 08:47; Start 06/22/18 at 09:00 Olanzapine (ZyPREXA ZYDIS) 2.5 mg PRN Q2HR PRN PO PSYCHOSIS; Start 06/21/18 at 20:45 Olanzapine (ZyPREXA) 5 mg BID PO Last administered on 06/23/18at 08:47; Start 06/21/18 at 21:00; Stop 06/23/18 at 17:06; Status DC Risperidone (RisperDAL) 1.5 mg HS PO Last administered on 06/23/18 19:45; Start 06/21/18 at 21:00 Trazodone HCl (Desyrel) 50 mg PRN QHS PRN PO INSOMNIA; Start 06/21/18 at 21:00 Nicotine (Nicoderm Cq 7mg) 1 patch PRN DAILY PRN TD SMOKING CESSATION; Start 06/21/18 at 23:30 Vitamin D (Vitamin D3) 50,000 unit WEEKLY PO Last administered on 06/23/18at 17 :35; Start 06/23/18 at 16:30 Olanzapine (ZyPREXA) 5 mg DAILY PO ; Start 06/24/18 at 09:00; Stop 06/26/18 at 00:00 Active Scripts Active Reported Zyprexa (Olanzapine) 5 Mg Tablet 5 Mg PO BID NICODERM CQ 7mg (Nicotine) 1 Each Patch.td24 1 Patch TD PRN DAILY PRN Trazodone Hcl 50 Mg Tablet 50 Mg PO PRN QHS PRN Risperdal (Risperidone) 1 Mg Tablet 1.5 Mg PO HS Analgesic [place] (Methyl Salicylate/Menthol) 28 Gm Oint...g. 1 Gerri TP PRN QID PRN Milk Of Magnesia (Magnesium Hydroxide) 400 Mg/5 Ml Oral.susp 400 Mg PO PRN DAILY PRN Mag-Al Plus Xs Suspension (Mag Hydrox/Al Hydrox/Simeth) 30 Ml Oral.susp 15 Ml PO PRN AFTMEALHC PRN Buspirone Hcl 10 Mg Tablet 10 Mg PO TID Baclofen 10 Mg Tablet 10 Mg PO QID Gabapentin 100 Mg Capsule 100 Mg PO QID Gabapentin 800 Mg Tablet 800 Mg PO QID Levothyroxine Sodium 50 Mcg Tablet 50 Mcg PO DAILYAC Klonopin (Clonazepam) 0.5 Mg Tablet 1 Mg PO BID Norvasc (Amlodipine Besylate) 10 Mg Tablet 10 Mg PO DAILY Oxybutynin Chloride 5 Mg Tablet 2.5 Mg PO BID Depakote Er (Divalproex Sodium) 500 Mg Tab.er.24h 1,500 Mg PO HS Klor-Con M20 (Potassium Chloride) 20 Meq Tab.er.prt 20 Meq PO DAILY Cymbalta (Duloxetine Hcl) 60 Mg Capsule.dr 60 Mg PO DAILY Multivitamin with Iron Tablet (Multivitamin/Iron/Folic Acid) 1 Each Tablet 1 Tab PO DAILY Flomax (Tamsulosin Hcl) 0.4 Mg Cap.er.24h 0.8 Mg PO DAILY Olanzapine 5 Mg Tablet 2.5 Mg PO PRN Q2HR PRN MDD 10mg/ 24 hrs Remeron (Mirtazapine) 15 Mg Tablet 7.5 Mg PO HS Bisacodyl 10 Mg Supp.rect 10 Mg RC PRN DAILY PRN Tylenol (Acetaminophen) 325 Mg Tablet 650 Mg PO PRN Q6HRS PRN I have reviewed the current psychotropics carefully including drug interactions. Risk benefit ratio favors no change other than as noted in my dictated progress note. Diagnosis: Problems: (1) Anxiety disorder (2) Impulse control disorder (3) Schizophrenia, paranoid, chronic with acute exacerbation CATHY EMERY MD Jun 23, 2018 22:44
[2018-06-24] MEDS: LEVOTHYROXINE 50 MCG TABLET PO SCH (06:00)
[2018-06-24 06:03] VITALS: BP 133/81
[2018-06-24] MEDS: BACLOFEN 10 MG TABLET PO SCH ×4 (09:59→19:54)
[2018-06-24] MEDS: busPIRone 10 MG TABLET. PO SCH ×3 (10:00→19:53)
[2018-06-24] MEDS: GABAPENTIN 300 MG CAPSULE. PO SCH ×4 (10:00→19:54)
[2018-06-24] MEDS: TAMSULOSIN 0.4 MG CAP.ER.24H. PO SCH (10:00)
[2018-06-24] MEDS: MULTIVITAMIN with MINERAL TABLET. PO SCH (10:00)
[2018-06-24] MEDS: POTASSIUM CHLORIDE 20 MEQ TABLET.ER. PO SCH (10:00)
[2018-06-24] MEDS: OXYBUTYNIN CHLORIDE 5 MG TABLET PO SCH ×2 (10:01→19:57)
[2018-06-24] MEDS: amLODIPine BESYLATE 10 MG TABLET PO SCH (10:01)
[2018-06-24] MEDS: clonazePAM 0.5 MG TABLET PO SCH ×2 (10:05→19:58)
[2018-06-24] MEDS: OLANZapine 5 MG TABLET PO SCH (10:23)
[2018-06-24 16:04] VITALS: BP 107/75
[2018-06-24] MEDS: DIVALPROEX ER 500 MG TAB.ER.24H PO SCH (19:54)
[2018-06-24] MEDS: risperiDONE 1 MG TABLET. PO SCH (19:55)
--- NOTE | 2018-06-24 22:59 | PDOC ---
Exam Note: Nguyễn Note: Please also refer to the separate dictated note~for this date of service dictated separately.~Patient seen individually. Discussed the patient with Nursing staff reviewed the chart.~Reviewed interim history and current functioning. Reviewed vital signs,~Labs/ Radiology~and current medications noted below. Continue current treatment with the changes noted in the dictated addendum note Assessment: Vital Signs: Vital Signs Date Time Temp Pulse Resp B/P (MAP) Pulse Ox O2 Delivery O2 Flow Rate FiO2 06/24/18 16:04 97.9 102 20 107/75 (86) 97 Room Air I&O Intake and Output 06/24/18 07:00 Intake Total 1200 ml Balance 1200 ml Intake Oral 1200 ml # Voids 1 Current Medications: Meds: Current Medications Acetaminophen (Tylenol) 650 mg PRN Q6HRS PRN PO PAIN / TEMP; Start 06/21/18 at 20:15 Clonazepam (KlonoPIN) 1 mg BID PO Last administered on 06/24/18at 19:58; Start 06/21/18 at 21:00 Gabapentin (Neurontin) 900 mg QID PO Last administered on 06/24/18at 19:54; Start 06/21/18 at 21:00 Al Hydroxide/Mg Hydroxide (Mylanta Plus Xs) 15 ml PRN AFTMEALHC PRN PO GI SYMPTOMS; Start 06/21/18 at 20:15 Magnesium Hydroxide (Milk Of Magnesia) 400 mg PRN DAILY PRN PO CONSTIPATION; Start 06/21/18 at 20:15 Multi-Ingredient Ointment (Analgesic [place]) 1 gerri PRN QID PRN TP MUSCLE PAIN; Start 06/21/18 at 20:15 Oxybutynin Chloride (Ditropan) 2.5 mg BID PO Last administered on 06/24/18at 19 :57; Start 06/21/18 at 21:00 Potassium Chloride (Klor-Con) 20 meq DAILY PO Last administered on 06/24/18at 10:00; Start 06/22/18 at 09:00 Tamsulosin HCl (Flomax) 0.8 mg DAILY PO Last administered on 06/24/18 10:00; Start 06/22/18 at 09:00 Amlodipine Besylate (Norvasc) 10 mg DAILY PO Last administered on 06/24/18at 10 :01; Start 06/22/18 at 09:00 Baclofen (Lioresal) 10 mg QID PO Last administered on 06/24/18at 19:54; Start 06/21/18 at 21:00 Bisacodyl (Dulcolax Supp) 10 mg PRN DAILY PRN [place] CONSTIPATION; Start 06/21/18 at 20:45 Buspirone HCl (Buspar) 10 mg TID PO Last administered on 06/24/18at 19:53; Start 06/21/18 at 21:00 Divalproex Sodium (Depakote Er) 1,500 mg HS PO Last administered on 06/24/18at 19:54; Start 06/21/18 at 21:00 Non-Formulary Medication (Gabapentin ) 800 mg QID PO ; Start 06/21/18 at 21:00 ; Status UNV Levothyroxine Sodium (Synthroid) 50 mcg DAILY06 PO Last administered on 06:00; Start 06/22/18 at 06:00 Multivitamins/ Calcium (Thera-M Plus) 1 tab DAILY PO Last administered on 06/24at 10:00; Start 06/22/18 at 09:00 Olanzapine (ZyPREXA ZYDIS) 2.5 mg PRN Q2HR PRN PO PSYCHOSIS; Start 06/21/18 at 20:45 Olanzapine (ZyPREXA) 5 mg BID PO Last administered on 06/23/18at 08:47; Start 06/21/18 at 21:00; Stop 06/23/18 at 17:06; Status DC Risperidone (RisperDAL) 1.5 mg HS PO Last administered on 06/23/18at 19:45; Start 06/21/18 at 21:00; Stop 06/24/18 at 11:06; Status DC Trazodone HCl (Desyrel) 50 mg PRN QHS PRN PO INSOMNIA; Start 06/21/18 at 21:00 Nicotine (Nicoderm Cq 7mg) 1 patch PRN DAILY PRN TD SMOKING CESSATION; Start 06/21/18 at 23:30 Vitamin D (Vitamin D3) 50,000 unit WEEKLY PO Last administered on 06/23/18at 17 :35; Start 06/23/18 at 16:30 Olanzapine (ZyPREXA) 5 mg DAILY PO Last administered on 06/24/18at 10:23; Start 06/24/18 at 09:00; Stop 06/26/18 at 00:00 Risperidone (RisperDAL) 1.75 mg HS PO Last administered on 06/24/18at 19:55; Start 06/24/18 at 21:00 Active Scripts Active Reported Zyprexa (Olanzapine) 5 Mg Tablet 5 Mg PO BID NICODERM CQ 7mg (Nicotine) 1 Each Patch.td24 1 Patch TD PRN DAILY PRN Trazodone Hcl 50 Mg Tablet 50 Mg PO PRN QHS PRN Risperdal (Risperidone) 1 Mg Tablet 1.5 Mg PO HS Analgesic [place] (Methyl Salicylate/Menthol) 28 Gm Oint...g. 1 Gerri TP PRN QID PRN Milk Of Magnesia (Magnesium Hydroxide) 400 Mg/5 Ml Oral.susp 400 Mg PO PRN DAILY PRN Mag-Al Plus Xs Suspension (Mag Hydrox/Al Hydrox/Simeth) 30 Ml Oral.susp 15 Ml PO PRN AFTMEALHC PRN Buspirone Hcl 10 Mg Tablet 10 Mg PO TID Baclofen 10 Mg Tablet 10 Mg PO QID Gabapentin 100 Mg Capsule 100 Mg PO QID Gabapentin 800 Mg Tablet 800 Mg PO QID Levothyroxine Sodium 50 Mcg Tablet 50 Mcg PO DAILYAC Klonopin (Clonazepam) 0.5 Mg Tablet 1 Mg PO BID Norvasc (Amlodipine Besylate) 10 Mg Tablet 10 Mg PO DAILY Oxybutynin Chloride 5 Mg Tablet 2.5 Mg PO BID Depakote Er (Divalproex Sodium) 500 Mg Tab.er.24h 1,500 Mg PO HS Klor-Con M20 (Potassium Chloride) 20 Meq Tab.er.prt 20 Meq PO DAILY Cymbalta (Duloxetine Hcl) 60 Mg Capsule.dr 60 Mg PO DAILY Multivitamin with Iron Tablet (Multivitamin/Iron/Folic Acid) 1 Each Tablet 1 Tab PO DAILY Flomax (Tamsulosin Hcl) 0.4 Mg Cap.er.24h 0.8 Mg PO DAILY Olanzapine 5 Mg Tablet 2.5 Mg PO PRN Q2HR PRN MDD 10mg/ 24 hrs Remeron (Mirtazapine) 15 Mg Tablet 7.5 Mg PO HS Bisacodyl 10 Mg Supp.rect 10 Mg RC PRN DAILY PRN Tylenol (Acetaminophen) 325 Mg Tablet 650 Mg PO PRN Q6HRS PRN I have reviewed the current psychotropics carefully including drug interactions. Risk benefit ratio favors no change other than as noted in my dictated progress note. Diagnosis: Problems: (1) Anxiety disorder (2) Impulse control disorder (3) Schizophrenia, paranoid, chronic with acute exacerbation CATHY EMERY MD Jun 24, 2018 22:59
[2018-06-25 05:59] VITALS: BP 99/69
[2018-06-25] MEDS: LEVOTHYROXINE 50 MCG TABLET PO SCH (06:24)
--- NOTE | 2018-06-25 07:57 | RAD ---
EXAM: CT Head without IV contrast CLINICAL HISTORY: TRAUMATIC BRAIN INJURY COMPARISON: None. TECHNIQUE: Routine CT of the head without contrast. Soft tissues and bone windows were reviewed. PQRS compliance statement - One or more of the following individualized dose reduction techniques were utilized for this study: 1. Automated exposure control 2. Adjustment of the mA and/or kV according to patient size 3. Use of iterative reconstruction technique FINDINGS: There is no evidence of hemorrhage, mass or extra-axial fluid collection. Worrell-white differentiation is maintained with no evidence of edema. There is no mass effect or shift of the intracranial structures. The ventricles, basilar cisterns and cortical sulci are normal in size and configuration for the patients stated age. The cerebellum and brainstem are unremarkable. Subtle nasal bone fracture, possibly chronic. Otherwise the calvarium demonstrates no evidence of fracture or focal lesion. Atherosclerotic vascular calcifications are seen. There is normal aeration of the visualized paranasal sinuses and mastoid air cells. The visualized portions of the orbits are normal. IMPRESSION: No evidence for acute intracranial process. Electronically signed by: Miguel Angel Wise MD (06/25/2018 7:54 AM) [facility]
[2018-06-25] MEDS: busPIRone 10 MG TABLET. PO SCH ×4 (08:04→19:41)
[2018-06-25] MEDS: BACLOFEN 10 MG TABLET PO SCH ×4 (08:04→19:42)
[2018-06-25] MEDS: MULTIVITAMIN with MINERAL TABLET. PO SCH (08:04)
[2018-06-25] MEDS: GABAPENTIN 300 MG CAPSULE. PO SCH ×4 (08:04→19:42)
[2018-06-25] MEDS: OLANZapine 5 MG TABLET PO SCH (08:04)
[2018-06-25] MEDS: TAMSULOSIN 0.4 MG CAP.ER.24H. PO SCH (08:04)
[2018-06-25] MEDS: POTASSIUM CHLORIDE 20 MEQ TABLET.ER. PO SCH (08:05)
[2018-06-25] MEDS: OXYBUTYNIN CHLORIDE 5 MG TABLET PO SCH ×2 (08:07→19:42)
[2018-06-25] MEDS: clonazePAM 0.5 MG TABLET PO SCH ×2 (08:07→19:42)
[2018-06-25] MEDS: amLODIPine BESYLATE 10 MG TABLET PO SCH (08:07)
[2018-06-25 15:59] VITALS: BP 108/74
[2018-06-25] MEDS: DIVALPROEX ER 500 MG TAB.ER.24H PO SCH (19:41)
[2018-06-25] MEDS: risperiDONE 1 MG TABLET. PO SCH (19:42)
--- NOTE | 2018-06-25 20:21 | PN ---
DATE: 06/23/2018 This is a late entry for 06/23/2018 covers elements not covered in my initial note. SUBJECTIVE: I met with the patient in the evening. The patient slept 8-3/4 hours previous evening. He remains somewhat withdrawn, intermittently psychotic, hallucinating. I met with Dr. Brennan in the evening and discussed the patient's history, reason for the capacity to make decision and consult on psychological testing requested of Dr. Brennan. REVIEW OF SYSTEMS: Ambulation impaired with walker. No CV, , pulmonary, eye, ENT system symptoms on review. MENTAL STATUS EXAM: Reasonably oriented. Speech has some latency, coherent. Abstraction fair, computation impaired, language function intact, attention span short. Mood and affect remain somewhat withdrawn at times, other times somewhat labile, intermittently psychotic. LABORATORY DATA: Reviewed. IMPRESSION: Schizoaffective disorder, bipolar type, mixed anxiety disorder, unspecified. Rest unchanged. Per nursing observation, at times, the patient has been making unconnected statements "tie them up. No guns. No bullshit." Seems intermittently psychotic. IMPRESSION: Schizoaffective disorder, bipolar type, mixed with psychotic features; anxiety disorder, unspecified; impulse control disorder, unspecified. PLAN: Check a valproic acid level in the morning. Change the Depakote DR 1500 mg at bedtime to Depakote extended release 1500 mg p.o. at bedtime. Rest unchanged from initial note. He is on 2 atypical antipsychotics Risperdal and Zyprexa. We will reduce the Zyprexa 5 mg b.i.d. down to once a day for 3 days and then stop it to reduce duplication of atypicals. Rest unchanged. MAN Ty EMERY MD DR: SARINA/nilda JOB#: [id number] / [id number]
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
[2018-06-25 21:03] VITALS: BP 101/66
--- NOTE | 2018-06-26 04:21 | PN ---
DATE: 06/25/2018 SUBJECTIVE: The patient was seen today. I met with the staff. Chart reviewed. Also covering for Dr. Howard. OBSERVATION: The patient's vital signs, temperature 97.8, blood pressure 99/69, pulse 71, respirations 20, O2 sat 99%. Slept about 6 hours last night. Staff reports no major problems. The patient was readmitted after he tried to elope from the windows at the [facility]. The patient's behavior remains the same. The patient has a long history of being institutionalized for chronic schizophrenia. MEDICATIONS: The patient's current medications include Risperdal 1.75 mg at night, Zyprexa 5 mg daily, amlodipine 10 mg daily, potassium chloride 20 mEq daily, levothyroxine 50 mcg daily, trazodone 50 mg at night p.r.n., Depakote 1500 mg at night, BuSpar 10 mg b.i.d. p.o. The patient is also on Klonopin 1 mg b.i.d., gabapentin 900 mg q.i.d. The patient is not having any side effects to the medications. ASSESSMENT: 1. Schizoaffective disorder, bipolar type, mixed with psychotic features. 2. Anxiety disorder, unspecified. PLAN: The patient will continue with the treatment. We will try to find a placement if the [facility] refuses to accept him. DECLAN GALAVIZ MD DR: STEFF/nilda JOB#: [id number] / [id number]
[2018-06-26 05:31] VITALS: BP 119/78
[2018-06-26] MEDS: LEVOTHYROXINE 50 MCG TABLET PO SCH (05:44)
[2018-06-26] MEDS: POTASSIUM CHLORIDE 20 MEQ TABLET.ER. PO SCH (07:43)
[2018-06-26] MEDS: busPIRone 10 MG TABLET. PO SCH ×3 (07:43→19:32)
[2018-06-26] MEDS: amLODIPine BESYLATE 10 MG TABLET PO SCH (07:43)
[2018-06-26] MEDS: MULTIVITAMIN with MINERAL TABLET. PO SCH (07:43)
[2018-06-26] MEDS: OXYBUTYNIN CHLORIDE 5 MG TABLET PO SCH ×2 (07:44→19:33)
[2018-06-26] MEDS: GABAPENTIN 300 MG CAPSULE. PO SCH ×4 (07:44→19:33)
[2018-06-26] MEDS: TAMSULOSIN 0.4 MG CAP.ER.24H. PO SCH (07:44)
[2018-06-26] MEDS: BACLOFEN 10 MG TABLET PO SCH ×4 (07:44→19:33)
[2018-06-26] MEDS: clonazePAM 0.5 MG TABLET PO SCH ×2 (07:45→19:33)
[2018-06-26 15:33] VITALS: BP 137/79
[2018-06-26] MEDS: DIVALPROEX ER 500 MG TAB.ER.24H PO SCH (19:32)
[2018-06-26] MEDS: risperiDONE 1 MG TABLET. PO SCH (19:33)
[2018-06-27 05:27] VITALS: BP 127/76
[2018-06-27] MEDS: LEVOTHYROXINE 50 MCG TABLET PO SCH (05:32)
[2018-06-27] MEDS: busPIRone 10 MG TABLET. PO SCH ×3 (08:28→19:43)
[2018-06-27] MEDS: BACLOFEN 10 MG TABLET PO SCH ×4 (08:29→19:43)
[2018-06-27] MEDS: amLODIPine BESYLATE 10 MG TABLET PO SCH (08:29)
[2018-06-27] MEDS: POTASSIUM CHLORIDE 20 MEQ TABLET.ER. PO SCH (08:29)
[2018-06-27] MEDS: MULTIVITAMIN with MINERAL TABLET. PO SCH (08:29)
[2018-06-27] MEDS: TAMSULOSIN 0.4 MG CAP.ER.24H. PO SCH (08:29)
[2018-06-27] MEDS: GABAPENTIN 300 MG CAPSULE. PO SCH ×4 (08:29→19:42)
[2018-06-27] MEDS: clonazePAM 0.5 MG TABLET PO SCH ×2 (08:31→19:44)
[2018-06-27] MEDS: OXYBUTYNIN CHLORIDE 5 MG TABLET PO SCH ×2 (08:32→19:43)
[2018-06-27 17:07] VITALS: BP 130/77
--- NOTE | 2018-06-27 17:08 | PN ---
DATE: 06/26/2018 SUBJECTIVE: The patient was seen today, met with the staff, chart reviewed. Staff reports no major events since yesterday. The patient mainly is complaining of about chest pain and also questioning about his medications, gets paranoid, but most of the time is compliant with the treatment. MEDICATIONS: The patient's current medications include Risperdal 1.75 mg at night, Zyprexa 5 mg daily, amlodipine 10 mg daily, potassium chloride 20 mEq daily, levothyroxine 50 mcg daily, trazodone 50 mg at night p.r.n., Depakote 1500 mg at night, BuSpar 10 mg b.i.d. p.o. The patient is also on Klonopin 1 mg b.i.d., gabapentin 100 mg b.i.d. The patient denies of any side effects and no major medical issues at this time. ASSESSMENT: 1. Schizoaffective disorder, bipolar type, mixed with psychotic features. 2. Anxiety disorder, unspecified. PLAN: To continue with the treatment. The patient's plan to be returned to senior living, apparently the [facility] refusing to accept him. DECLAN GALAVIZ MD DR: STEFF/nilda JOB#: [id number] / [id number]
[2018-06-27 19:32] VITALS: BP 154/76
[2018-06-27] MEDS: DIVALPROEX ER 500 MG TAB.ER.24H PO SCH (19:43)
[2018-06-27] MEDS: risperiDONE 1 MG TABLET. PO SCH (19:44)
--- NOTE | 2018-06-27 20:04 | PN ---
DATE: 06/27/2018 SUBJECTIVE: The patient was seen today, met with the staff, chart reviewed. OBSERVATION: VITAL SIGNS: Temperature 98.5, blood pressure 127/76, pulse 86, respirations 18, O2 sat 98%. Slept about 5 hours last night. The patient's appetite is fair. The patient's behavior improved. The patient has a long history of being hospitalized and being in nursing homes. The patient would like to be left alone. The patient also tends to be demanding at times. CURRENT MEDICATIONS: Include Risperdal, Zyprexa, trazodone, Depakote, BuSpar, Klonopin and gabapentin. The patient is not having any side effects. ASSESSMENT: Schizoaffective disorder, bipolar type, mixed with psychotic features; anxiety disorder, unspecified. PLAN: The patient will continue with the treatment. The patient is awaiting for the placement. DECLAN GALAVIZ MD DR: STEFF/nilda JOB#: [id number] / [id number]
[2018-06-28] MEDS: LEVOTHYROXINE 50 MCG TABLET PO SCH (06:02)
[2018-06-28 06:29] VITALS: BP 121/83
[2018-06-28] MEDS: busPIRone 10 MG TABLET. PO SCH ×3 (08:02→19:52)
[2018-06-28] MEDS: OXYBUTYNIN CHLORIDE 5 MG TABLET PO SCH ×2 (08:03→20:23)
[2018-06-28] MEDS: TAMSULOSIN 0.4 MG CAP.ER.24H. PO SCH (08:03)
[2018-06-28] MEDS: POTASSIUM CHLORIDE 20 MEQ TABLET.ER. PO SCH (08:04)
[2018-06-28] MEDS: BACLOFEN 10 MG TABLET PO SCH ×4 (08:04→19:56)
[2018-06-28] MEDS: clonazePAM 0.5 MG TABLET PO SCH ×2 (08:04→20:09)
[2018-06-28] MEDS: MULTIVITAMIN with MINERAL TABLET. PO SCH (08:05)
[2018-06-28] MEDS: amLODIPine BESYLATE 10 MG TABLET PO SCH (08:05)
[2018-06-28] MEDS: GABAPENTIN 300 MG CAPSULE. PO SCH ×4 (08:05→19:53)
[2018-06-28 09:24] LABS: BASO # 0.1 x10^3/uL (0.0-0.2); BASO % 1 % (0-3); EOS # 0.1 x10^3/uL (0.0-0.7); EOS % 1 % (0-3); HEMATOCRIT 40.1 % (39.0-53.0); HEMOGLOBIN 13.6 g/dL (13.0-17.5); LYMPH # 1.1 x10^3/uL (1.0-4.8); LYMPH % 11 % (24-48); MEAN CORPUSCULAR HEMOGLOBIN 31 pg (25-35); MEAN CORPUSCULAR HGB CONC 34 g/dL (31-37); MEAN CORPUSCULAR VOLUME 90 fL (79-100); MONO # 0.9 x10^3/uL (0.0-1.1); MONO % 9 % (0-9); NEUT # 7.4 x10^3uL (1.8-7.7); NEUT % 78 % (31-73); PLATELET COUNT 330 x10^3/uL (140-400); RED BLOOD COUNT 4.43 x10^6/uL (4.30-5.70); RED CELL DISTRIBUTION WIDTH 13.1 % (11.5-14.5); WHITE BLOOD COUNT 9.4 x10^3/uL (4.0-11.0)
[2018-06-28 09:35] LABS: ALBUMIN 3.2 g/dL (3.4-5.0); ALBUMIN/GLOBULIN RATIO 0.8 (1.0-1.7); CALCIUM 8.5 mg/dL (8.5-10.1); CREATININE 0.6 mg/dL (0.7-1.3); GFR 138.9; POTASSIUM 4.1 mmol/L (3.5-5.1); TOTAL BILIRUBIN 0.4 mg/dL (0.2-1.0)
[2018-06-28 16:09] VITALS: BP 143/87
[2018-06-28] MEDS: DIVALPROEX ER 500 MG TAB.ER.24H PO SCH (19:52)
[2018-06-28] MEDS: risperiDONE 1 MG TABLET. PO SCH (19:53)
--- NOTE | 2018-06-29 01:19 | PN ---
DATE: 06/28/2018 SUBJECTIVE: The patient was seen today, met with the staff, chart reviewed. Staff reports no major problems today. OBSERVATION: VITAL SIGNS: Temperature 98.1, blood pressure 129/55, pulse 83, respirations 18, O2 sat 93%. Slept about 8 hours last night. MEDICATIONS: The patient's current medications include Risperdal, Zyprexa, trazodone, Depakote, BuSpar, Klonopin, gabapentin. He is not exhibiting any side effects. LABORATORY DATA: The patient's lab reviewed. ASSESSMENT: Schizoaffective disorder, bipolar type, mixed with psychotic features; anxiety disorder, unspecified. PLAN: To continue with the treatment and he is awaiting for placement. DECLAN GALAVIZ MD DR: STEFF/nilda JOB#: [id number] / [id number]
[2018-06-29] MEDS: ACETAMINOPHEN 325 MG TABLET PO PRN (05:17)
[2018-06-29 05:47] VITALS: BP 116/75
[2018-06-29] MEDS: LEVOTHYROXINE 50 MCG TABLET PO SCH (06:09)
[2018-06-29] MEDS: BACLOFEN 10 MG TABLET PO SCH ×4 (08:09→19:37)
[2018-06-29] MEDS: busPIRone 10 MG TABLET. PO SCH ×3 (08:10→19:35)
[2018-06-29] MEDS: amLODIPine BESYLATE 10 MG TABLET PO SCH (08:10)
[2018-06-29] MEDS: OXYBUTYNIN CHLORIDE 5 MG TABLET PO SCH ×2 (08:10→19:37)
[2018-06-29] MEDS: POTASSIUM CHLORIDE 20 MEQ TABLET.ER. PO SCH (08:10)
[2018-06-29] MEDS: MULTIVITAMIN with MINERAL TABLET. PO SCH (08:11)
[2018-06-29] MEDS: GABAPENTIN 300 MG CAPSULE. PO SCH ×4 (08:11→19:38)
[2018-06-29] MEDS: TAMSULOSIN 0.4 MG CAP.ER.24H. PO SCH (08:11)
[2018-06-29] MEDS: clonazePAM 0.5 MG TABLET PO SCH ×2 (08:17→19:37)
[2018-06-29 16:01] VITALS: BP 118/81
[2018-06-29] MEDS: DIVALPROEX ER 500 MG TAB.ER.24H PO SCH (19:36)
[2018-06-29] MEDS: risperiDONE 1 MG TABLET. PO SCH (19:38)
--- NOTE | 2018-06-30 03:29 | PN ---
DATE: 06/29/2018 SUBJECTIVE: The patient was seen today, met with the staff, chart reviewed. Staff reports he became agitated easily today, almost became physical towards one of the staff. The patient tends to obsess ruminating and episodes where he is out of control. OBSERVATION: VITAL SIGNS: Temperature 98.4, blood pressure 116/75, pulse 87, respirations 18, O2 sat 96%. Slept about 7 hours last night. The patient tends to isolate himself, but is able to take care of his needs. The patient was confronted about his behavior. The patient apologized and he said sometimes too many people are trying to ask questions and he gets confused. The patient denies that he had any problems since then. MEDICATIONS: The patient's current medications include Risperdal, Zyprexa, trazodone, Depakote, BuSpar, Klonopin, and gabapentin. ALLERGIES: He is not having any side effects to the medication. LABORATORY DATA: The patient's lab reviewed. ASSESSMENT: Schizoaffective disorder, bipolar type, mixed with psychotic features; anxiety disorder, unspecified. PLAN: To continue with the treatment, waiting for placement. DECLAN GALAVIZ MD DR: STEFF/nilda JOB#: [id number] / [id number]
[2018-06-30 05:34] VITALS: BP 109/72
[2018-06-30] MEDS: LEVOTHYROXINE 50 MCG TABLET PO SCH (06:00)
[2018-06-30] MEDS: CHOLECALCIFEROL (VITAMIN D3) 50,000 UNIT CAPSULE PO SCH (08:41)
[2018-06-30] MEDS: GABAPENTIN 300 MG CAPSULE. PO SCH ×4 (08:42→19:28)
[2018-06-30] MEDS: amLODIPine BESYLATE 10 MG TABLET PO SCH (08:42)
[2018-06-30] MEDS: POTASSIUM CHLORIDE 20 MEQ TABLET.ER. PO SCH (08:42)
[2018-06-30] MEDS: TAMSULOSIN 0.4 MG CAP.ER.24H. PO SCH (08:43)
[2018-06-30] MEDS: BACLOFEN 10 MG TABLET PO SCH ×4 (08:43→19:28)
[2018-06-30] MEDS: MULTIVITAMIN with MINERAL TABLET. PO SCH (08:43)
[2018-06-30] MEDS: OXYBUTYNIN CHLORIDE 5 MG TABLET PO SCH ×2 (08:43→19:28)
[2018-06-30] MEDS: clonazePAM 0.5 MG TABLET PO SCH ×2 (09:38→19:29)
[2018-06-30] MEDS: busPIRone 10 MG TABLET. PO SCH ×3 (09:39→19:27)
[2018-06-30] MEDS: ACETAMINOPHEN 325 MG TABLET PO PRN (10:00)
[2018-06-30 16:11] VITALS: BP 121/64
[2018-06-30] MEDS: DIVALPROEX ER 500 MG TAB.ER.24H PO SCH (19:27)
[2018-06-30] MEDS: risperiDONE 1 MG TABLET. PO SCH (19:28)
--- NOTE | 2018-06-30 21:11 | PN ---
DATE: 06/30/2018 SUBJECTIVE: The patient was seen today, met with the staff, chart reviewed. The patient continues to have behavior problems, some improvement. The patient continues to worry. focusing on all the negative. OBSERVATION: VITAL SIGNS: Temperature 98.4, blood pressure 109/72, pulse 82, respirations 18, O2 sat 94%. Slept about 7 hours last night. The patient's appetite has improved. MEDICATIONS: The patient's current medications include Risperdal, Zyprexa, trazodone, Depakote, BuSpar, Klonopin and gabapentin. DIAGNOSES: 1. Schizoaffective disorder, bipolar type, mixed with psychotic features. 2. Anxiety disorder, unspecified. PLAN: To continue with the treatment. DECLAN GALAVIZ MD DR: STEFF/nilda JOB#: [id number] / [id number]
[2018-07-01 05:52] VITALS: BP 107/72
[2018-07-01] MEDS: LEVOTHYROXINE 50 MCG TABLET PO SCH (06:19)
[2018-07-01] MEDS: TAMSULOSIN 0.4 MG CAP.ER.24H. PO SCH (07:40)
[2018-07-01] MEDS: GABAPENTIN 300 MG CAPSULE. PO SCH ×4 (07:40→20:53)
[2018-07-01] MEDS: amLODIPine BESYLATE 10 MG TABLET PO SCH (07:40)
[2018-07-01] MEDS: MULTIVITAMIN with MINERAL TABLET. PO SCH (07:41)
[2018-07-01] MEDS: BACLOFEN 10 MG TABLET PO SCH ×4 (07:41→20:54)
[2018-07-01] MEDS: POTASSIUM CHLORIDE 20 MEQ TABLET.ER. PO SCH (07:41)
[2018-07-01] MEDS: busPIRone 10 MG TABLET. PO SCH ×3 (07:41→20:54)
[2018-07-01] MEDS: OXYBUTYNIN CHLORIDE 5 MG TABLET PO SCH ×2 (07:41→20:55)
[2018-07-01] MEDS: clonazePAM 0.5 MG TABLET PO SCH ×2 (07:51→20:53)
[2018-07-01 08:08] LABS: VAL ACID 55 mcg/mL (50-100)
[2018-07-01 15:52] VITALS: BP 121/77
[2018-07-01] MEDS: risperiDONE 1 MG TABLET. PO SCH (20:54)
[2018-07-01] MEDS: DIVALPROEX ER 500 MG TAB.ER.24H PO SCH (20:54)
--- NOTE | 2018-07-02 03:43 | PN ---
DATE: 07/01/2018 SUBJECTIVE: The patient was seen today, met with the staff, chart reviewed. The patient's behavior remains the same. He isolates himself. Occasional outbursts of anger, rage, and currently less paranoid and suspicious and staff reports no major behavior problems. OBSERVATION: VITAL SIGNS: Temperature 98.5, blood pressure 121/77, pulse 95, respirations 19, O2 sat 98%. The patient's appetite is good, sleeping well. The patient is not having any physical complaints. MEDICATIONS: The patient's current medications include Risperdal, Zyprexa, trazodone, Depakote, BuSpar, Klonopin, and gabapentin. DIAGNOSES: 1. Schizoaffective disorder, bipolar type, mixed with psychotic features. 2. Anxiety disorder, unspecified. PLAN: To continue with the treatment. DECLAN GALAVIZ MD DR: STEFF/nilda JOB#: [id number] / [id number]
[2018-07-02 05:33] VITALS: BP 138/89
[2018-07-02] MEDS: LEVOTHYROXINE 50 MCG TABLET PO SCH (06:37)
[2018-07-02] MEDS: TAMSULOSIN 0.4 MG CAP.ER.24H. PO SCH (08:46)
[2018-07-02] MEDS: amLODIPine BESYLATE 10 MG TABLET PO SCH (08:46)
[2018-07-02] MEDS: POTASSIUM CHLORIDE 20 MEQ TABLET.ER. PO SCH (08:48)
[2018-07-02] MEDS: MULTIVITAMIN with MINERAL TABLET. PO SCH (08:48)
[2018-07-02] MEDS: BACLOFEN 10 MG TABLET PO SCH ×4 (08:48→19:48)
[2018-07-02] MEDS: clonazePAM 0.5 MG TABLET PO SCH ×2 (08:48→19:47)
[2018-07-02] MEDS: GABAPENTIN 300 MG CAPSULE. PO SCH ×4 (08:48→19:47)
[2018-07-02] MEDS: busPIRone 10 MG TABLET. PO SCH ×3 (08:49→19:48)
[2018-07-02] MEDS: OXYBUTYNIN CHLORIDE 5 MG TABLET PO SCH ×2 (08:49→19:48)
[2018-07-02 15:21] VITALS: BP 101/67
[2018-07-02] MEDS: risperiDONE 1 MG TABLET. PO SCH (19:47)
[2018-07-02] MEDS: DIVALPROEX ER 500 MG TAB.ER.24H PO SCH (19:48)
[2018-07-02] MEDS: traZODone 50 MG TABLET. PO PRN (19:49)
--- NOTE | 2018-07-02 22:25 | PN ---
DATE: 07/02/2018 SUBJECTIVE: The patient was seen today, met with the staff, chart reviewed. Staff reports that he had known episodes where he becomes very delusional and paranoid and became agitated easily, also having some racing thoughts. The patient was able to calm down with intervention. OBSERVATION: VITAL SIGNS: Temperature 97.7, blood pressure 138/89, pulse 86, respirations 18, O2 sat 97%. Slept about 8 hours last night. The patient will continue on his meds including Risperdal, Zyprexa, trazodone, Depakote, BuSpar, Klonopin, and gabapentin. DIAGNOSES: 1. Schizoaffective disorder, bipolar type, mixed with psychotic features. 2. Anxiety disorder, unspecified. PLAN: To continue with the treatment. DECLAN GALAVIZ MD DR: STEFF/nilda JOB#: [id number] / [id number]
[2018-07-03 05:51] VITALS: BP 115/71
[2018-07-03] MEDS: LEVOTHYROXINE 50 MCG TABLET PO SCH (05:56)
[2018-07-03] MEDS: busPIRone 10 MG TABLET. PO SCH ×3 (08:18→19:58)
[2018-07-03] MEDS: OXYBUTYNIN CHLORIDE 5 MG TABLET PO SCH ×2 (08:18→19:58)
[2018-07-03] MEDS: TAMSULOSIN 0.4 MG CAP.ER.24H. PO SCH (08:18)
[2018-07-03] MEDS: POTASSIUM CHLORIDE 20 MEQ TABLET.ER. PO SCH (08:18)
[2018-07-03] MEDS: amLODIPine BESYLATE 10 MG TABLET PO SCH (08:19)
[2018-07-03] MEDS: MULTIVITAMIN with MINERAL TABLET. PO SCH (08:19)
[2018-07-03] MEDS: BACLOFEN 10 MG TABLET PO SCH ×4 (08:19→19:57)
[2018-07-03] MEDS: GABAPENTIN 300 MG CAPSULE. PO SCH ×4 (08:19→19:58)
[2018-07-03] MEDS: clonazePAM 0.5 MG TABLET PO SCH ×2 (08:22→19:58)
[2018-07-03 08:33] LABS: BASO # 0.1 x10^3/uL (0.0-0.2); BASO % 1 % (0-3); EOS # 0.1 x10^3/uL (0.0-0.7); EOS % 2 % (0-3); HEMATOCRIT 41.5 % (39.0-53.0); HEMOGLOBIN 14.1 g/dL (13.0-17.5); LYMPH # 1.5 x10^3/uL (1.0-4.8); LYMPH % 23 % (24-48); MEAN CORPUSCULAR HEMOGLOBIN 30 pg (25-35); MEAN CORPUSCULAR HGB CONC 34 g/dL (31-37); MEAN CORPUSCULAR VOLUME 89 fL (79-100); MONO # 0.6 x10^3/uL (0.0-1.1); MONO % 9 % (0-9); NEUT # 4.4 x10^3uL (1.8-7.7); NEUT % 65 % (31-73); PLATELET COUNT 407 x10^3/uL (140-400); RED BLOOD COUNT 4.69 x10^6/uL (4.30-5.70); RED CELL DISTRIBUTION WIDTH 12.8 % (11.5-14.5); WHITE BLOOD COUNT 6.7 x10^3/uL (4.0-11.0)
[2018-07-03 08:42] LABS: ALBUMIN 3.3 g/dL (3.4-5.0); ALBUMIN/GLOBULIN RATIO 0.8 (1.0-1.7); CALCIUM 8.6 mg/dL (8.5-10.1); CREATININE 0.5 mg/dL (0.7-1.3); GFR 171.4; POTASSIUM 4.4 mmol/L (3.5-5.1); TOTAL BILIRUBIN 0.2 mg/dL (0.2-1.0); TOTAL PROTEIN 7.2 g/dL (6.4-8.2)
[2018-07-03 16:11] VITALS: BP 136/84
[2018-07-03] MEDS: DIVALPROEX ER 500 MG TAB.ER.24H PO SCH (19:57)
[2018-07-03] MEDS: risperiDONE 1 MG TABLET. PO SCH (19:58)
[2018-07-03] MEDS: traZODone 50 MG TABLET. PO PRN (19:58)
[2018-07-04 05:44] VITALS: BP 167/98
[2018-07-04] MEDS: LEVOTHYROXINE 50 MCG TABLET PO SCH (05:56)
[2018-07-04] MEDS: busPIRone 10 MG TABLET. PO SCH ×3 (07:58→20:09)
[2018-07-04] MEDS: OXYBUTYNIN CHLORIDE 5 MG TABLET PO SCH ×2 (07:58→20:09)
[2018-07-04] MEDS: TAMSULOSIN 0.4 MG CAP.ER.24H. PO SCH (07:58)
[2018-07-04] MEDS: POTASSIUM CHLORIDE 20 MEQ TABLET.ER. PO SCH (07:58)
[2018-07-04] MEDS: BACLOFEN 10 MG TABLET PO SCH ×4 (08:00→20:09)
[2018-07-04] MEDS: clonazePAM 0.5 MG TABLET PO SCH ×2 (08:00→20:08)
[2018-07-04] MEDS: GABAPENTIN 300 MG CAPSULE. PO SCH ×4 (08:02→20:09)
[2018-07-04] MEDS: amLODIPine BESYLATE 10 MG TABLET PO SCH (08:03)
[2018-07-04] MEDS: MULTIVITAMIN with MINERAL TABLET. PO SCH (08:03)
--- NOTE | 2018-07-04 14:28 | PN ---
DATE: 07/04/2018 SUBJECTIVE: The patient was seen today, met with the staff, chart reviewed. The patient's behavior remains the same. The patient has brief episodes. He becomes angry, upset, threatening to others, most of the time isolates himself. The patient also has some grandiose ideation. The patient is having too many plans. The patient's thinking is not goal directed. OBSERVATION: VITAL SIGNS: Temperature 97.7, blood pressure 167/98, pulse 86, respirations 20, O2 sat 98.1. Slept about 5 hours last night. CURRENT MEDICATIONS: The patient's medications reviewed. The patient is not having any side effects. The patient did not have any falls. LABORATORY DATA: Also, labs reviewed. DIAGNOSES: 1. Schizoaffective disorder, bipolar type, mixed with psychotic features. 2. Anxiety disorder, unspecified. PLAN: To continue with the treatment. DECLAN GALAVIZ MD DR: STEFF/nilda JOB#: [id number] / [id number]
[2018-07-04 16:23] VITALS: BP 113/79
[2018-07-04] MEDS: DIVALPROEX ER 500 MG TAB.ER.24H PO SCH (20:09)
[2018-07-04] MEDS: traZODone 50 MG TABLET. PO PRN (20:10)
[2018-07-04] MEDS: risperiDONE 1 MG TABLET. PO SCH (20:10)
[2018-07-05 05:49] VITALS: BP 136/87
[2018-07-05] MEDS: LEVOTHYROXINE 50 MCG TABLET PO SCH (06:19)
[2018-07-05] MEDS: busPIRone 10 MG TABLET. PO SCH ×3 (08:53→19:28)
[2018-07-05] MEDS: OXYBUTYNIN CHLORIDE 5 MG TABLET PO SCH ×2 (08:54→22:12)
[2018-07-05] MEDS: TAMSULOSIN 0.4 MG CAP.ER.24H. PO SCH (08:57)
[2018-07-05] MEDS: clonazePAM 0.5 MG TABLET PO SCH ×2 (09:00→19:30)
[2018-07-05] MEDS: BACLOFEN 10 MG TABLET PO SCH ×4 (09:00→19:28)
[2018-07-05] MEDS: POTASSIUM CHLORIDE 20 MEQ TABLET.ER. PO SCH (09:00)
[2018-07-05] MEDS: amLODIPine BESYLATE 10 MG TABLET PO SCH (09:01)
[2018-07-05] MEDS: MULTIVITAMIN with MINERAL TABLET. PO SCH (09:01)
[2018-07-05] MEDS: GABAPENTIN 300 MG CAPSULE. PO SCH ×4 (09:01→19:28)
[2018-07-05 16:06] VITALS: BP 94/60
--- NOTE | 2018-07-05 18:59 | PDOC ---
Exam Note: Nguyễn Note: Please also refer to the separate dictated note~for this date of service dictated separately.~Patient seen individually. Discussed the patient with Nursing staff reviewed the chart.~Reviewed interim history and current functioning. Reviewed vital signs,~Labs/ Radiology~and current medications noted below. Continue current treatment with the changes noted in the dictated addendum note Assessment: Vital Signs: Vital Signs Date Time Temp Pulse Resp B/P (MAP) Pulse Ox O2 Delivery O2 Flow Rate FiO2 07/05/18 16:06 97.8 65 16 94/60 (71) 94 07/04/18 05:44 Room Air I&O Intake and Output 07/05/18 07:00 Intake Total 1360 ml Balance 1360 ml Intake Oral 1360 ml Current Medications: Meds: Current Medications Acetaminophen (Tylenol) 650 mg PRN Q6HRS PRN PO PAIN / TEMP Last administered on 06/30/18 10:00; Start 06/21/18 at 20:15 Clonazepam (KlonoPIN) 1 mg BID PO Last administered on 07/05/18 09:00; Start 06/21/18 at 21:00 Gabapentin (Neurontin) 900 mg QID PO Last administered on 07/05/18 17:13; Start 06/21/18 at 21:00 Al Hydroxide/Mg Hydroxide (Mylanta Plus Xs) 15 ml PRN AFTMEALHC PRN PO GI SYMPTOMS; Start 06/21/18 at 20:15 Magnesium Hydroxide (Milk Of Magnesia) 400 mg PRN DAILY PRN PO CONSTIPATION; Start 06/21/18 at 20:15 Multi-Ingredient Ointment (Analgesic [place]) 1 gerri PRN QID PRN TP MUSCLE PAIN; Start 06/21/18 at 20:15 Oxybutynin Chloride (Ditropan) 2.5 mg BID PO Last administered on 07/05/18 08 :54; Start 06/21/18 at 21:00 Potassium Chloride (Klor-Con) 20 meq DAILY PO Last administered on 07/05/18 09:00; Start 06/22/18 at 09:00 Tamsulosin HCl (Flomax) 0.8 mg DAILY PO Last administered on 07/05/18 08:57; Start 06/22/18 at 09:00 Amlodipine Besylate (Norvasc) 10 mg DAILY PO Last administered on 07/05/18 09 :01; Start 06/22/18 at 09:00 Baclofen (Lioresal) 10 mg QID PO Last administered on 07/05/18 17:13; Start 06/21/18 at 21:00 Bisacodyl (Dulcolax Supp) 10 mg PRN DAILY PRN [place] CONSTIPATION; Start 06/21/18 at 20:45 Buspirone HCl (Buspar) 10 mg TID PO Last administered on 07/05/18at 13:33; Start 06/21/18 at 21:00 Divalproex Sodium (Depakote Er) 1,500 mg HS PO Last administered on 07/04/18 20:09; Start 06/21/18 at 21:00 Non-Formulary Medication (Gabapentin ) 800 mg QID PO ; Start 06/21/18 at 21:00 ; Status UNV Levothyroxine Sodium (Synthroid) 50 mcg DAILY06 PO Last administered on 06:19; Start 06/22/18 at 06:00 Multivitamins/ Calcium (Thera-M Plus) 1 tab DAILY PO Last administered on 07/05 09:01; Start 06/22/18 at 09:00 Olanzapine (ZyPREXA ZYDIS) 2.5 mg PRN Q2HR PRN PO PSYCHOSIS Last administered on 07/04/18 16:58; Start 06/21/18 at 20:45 Olanzapine (ZyPREXA) 5 mg BID PO Last administered on 06/23/18at 08:47; Start 06/21/18 at 21:00; Stop 06/23/18 at 17:06; Status DC Risperidone (RisperDAL) 1.5 mg HS PO Last administered on 06/23/18at 19:45; Start 06/21/18 at 21:00; Stop 06/24/18 at 11:06; Status DC Trazodone HCl (Desyrel) 50 mg PRN QHS PRN PO INSOMNIA Last administered on 20:10; Start 06/21/18 at 21:00 Nicotine (Nicoderm Cq 7mg) 1 patch PRN DAILY PRN TD SMOKING CESSATION; Start 06/21/18 at 23:30 Vitamin D (Vitamin D3) 50,000 unit WEEKLY PO Last administered on 11/21/18at 08 :41; Start 06/23/18 at 16:30 Olanzapine (ZyPREXA) 5 mg DAILY PO Last administered on 06/25/18at 08:04; Start 06/24/18 at 09:00; Stop 06/26/18 at 00:00; Status DC Risperidone (RisperDAL) 1.75 mg HS PO Last administered on 07/04/18at 20:10; Start 06/24/18 at 21:00 Active Scripts Active Reported Zyprexa (Olanzapine) 5 Mg Tablet 5 Mg PO BID NICODERM CQ 7mg (Nicotine) 1 Each Patch.td24 1 Patch TD PRN DAILY PRN Trazodone Hcl 50 Mg Tablet 50 Mg PO PRN QHS PRN Risperdal (Risperidone) 1 Mg Tablet 1.5 Mg PO HS Analgesic [place] (Methyl Salicylate/Menthol) 28 Gm Oint...g. 1 Gerri TP PRN QID PRN Milk Of Magnesia (Magnesium Hydroxide) 400 Mg/5 Ml Oral.susp 400 Mg PO PRN DAILY PRN Mag-Al Plus Xs Suspension (Mag Hydrox/Al Hydrox/Simeth) 30 Ml Oral.susp 15 Ml PO PRN AFTMEALHC PRN Buspirone Hcl 10 Mg Tablet 10 Mg PO TID Baclofen 10 Mg Tablet 10 Mg PO QID Gabapentin 100 Mg Capsule 100 Mg PO QID Gabapentin 800 Mg Tablet 800 Mg PO QID Levothyroxine Sodium 50 Mcg Tablet 50 Mcg PO DAILYAC Klonopin (Clonazepam) 0.5 Mg Tablet 1 Mg PO BID Norvasc (Amlodipine Besylate) 10 Mg Tablet 10 Mg PO DAILY Oxybutynin Chloride 5 Mg Tablet 2.5 Mg PO BID Depakote Er (Divalproex Sodium) 500 Mg Tab.er.24h 1,500 Mg PO HS Klor-Con M20 (Potassium Chloride) 20 Meq Tab.er.prt 20 Meq PO DAILY Cymbalta (Duloxetine Hcl) 60 Mg Capsule.dr 60 Mg PO DAILY Multivitamin with Iron Tablet (Multivitamin/Iron/Folic Acid) 1 Each Tablet 1 Tab PO DAILY Flomax (Tamsulosin Hcl) 0.4 Mg Cap.er.24h 0.8 Mg PO DAILY Olanzapine 5 Mg Tablet 2.5 Mg PO PRN Q2HR PRN MDD 10mg/ 24 hrs Remeron (Mirtazapine) 15 Mg Tablet 7.5 Mg PO HS Bisacodyl 10 Mg Supp.rect 10 Mg RC PRN DAILY PRN Tylenol (Acetaminophen) 325 Mg Tablet 650 Mg PO PRN Q6HRS PRN I have reviewed the current psychotropics carefully including drug interactions. Risk benefit ratio favors no change other than as noted in my dictated progress note. Diagnosis: Problems: (1) Anxiety disorder (2) Impulse control disorder (3) Schizophrenia, paranoid, chronic with acute exacerbation CATHY EMERY MD Jul 05, 2018 18:59
[2018-07-05] MEDS: DIVALPROEX ER 500 MG TAB.ER.24H PO SCH (19:28)
[2018-07-05] MEDS: risperiDONE 1 MG TABLET. PO SCH (19:29)
[2018-07-06] MEDS: LEVOTHYROXINE 50 MCG TABLET PO SCH (05:44)
[2018-07-06 05:49] VITALS: BP 139/85
[2018-07-06] MEDS: OXYBUTYNIN CHLORIDE 5 MG TABLET PO SCH ×2 (07:57→20:07)
[2018-07-06] MEDS: POTASSIUM CHLORIDE 20 MEQ TABLET.ER. PO SCH (07:57)
[2018-07-06] MEDS: GABAPENTIN 300 MG CAPSULE. PO SCH ×4 (07:58→20:08)
[2018-07-06] MEDS: busPIRone 10 MG TABLET. PO SCH ×3 (07:58→20:07)
[2018-07-06] MEDS: BACLOFEN 10 MG TABLET PO SCH ×4 (07:58→20:08)
[2018-07-06] MEDS: amLODIPine BESYLATE 10 MG TABLET PO SCH (07:58)
[2018-07-06] MEDS: TAMSULOSIN 0.4 MG CAP.ER.24H. PO SCH (07:58)
[2018-07-06] MEDS: MULTIVITAMIN with MINERAL TABLET. PO SCH (07:58)
[2018-07-06] MEDS: clonazePAM 0.5 MG TABLET PO SCH ×2 (08:00→20:08)
[2018-07-06 15:42] VITALS: BP 125/87
--- NOTE | 2018-07-06 18:57 | PDOC ---
Exam Note: Nguyễn Note: Please also refer to the separate dictated note~for this date of service dictated separately.~Patient seen individually. Discussed the patient with Nursing staff reviewed the chart.~Reviewed interim history and current functioning. Reviewed vital signs,~Labs/ Radiology~and current medications noted below. Continue current treatment with the changes noted in the dictated addendum note Assessment: Vital Signs: Vital Signs Date Time Temp Pulse Resp B/P (MAP) Pulse Ox O2 Delivery O2 Flow Rate FiO2 07/06/18 15:42 98.1 72 18 125/87 (100) 95 Room Air I&O Intake and Output 07/06/18 07:00 Intake Total 840 ml Balance 840 ml Intake Oral 840 ml Current Medications: Meds: Current Medications Acetaminophen (Tylenol) 650 mg PRN Q6HRS PRN PO PAIN / TEMP Last administered on 06/30/18at 10:00; Start 06/21/18 at 20:15 Clonazepam (KlonoPIN) 1 mg BID PO Last administered on 07/06/18 08:00; Start 06/21/18 at 21:00 Gabapentin (Neurontin) 900 mg QID PO Last administered on 07/06/18at 16:48; Start 06/21/18 at 21:00 Al Hydroxide/Mg Hydroxide (Mylanta Plus Xs) 15 ml PRN AFTMEALHC PRN PO GI SYMPTOMS; Start 06/21/18 at 20:15 Magnesium Hydroxide (Milk Of Magnesia) 400 mg PRN DAILY PRN PO CONSTIPATION; Start 06/21/18 at 20:15 Multi-Ingredient Ointment (Analgesic [place]) 1 gerri PRN QID PRN TP MUSCLE PAIN; Start 06/21/18 at 20:15 Oxybutynin Chloride (Ditropan) 2.5 mg BID PO Last administered on 07/06/18at 07 :57; Start 06/21/18 at 21:00 Potassium Chloride (Klor-Con) 20 meq DAILY PO Last administered on 07/06/18 07:57; Start 06/22/18 at 09:00 Tamsulosin HCl (Flomax) 0.8 mg DAILY PO Last administered on 07/06/18 07:58; Start 06/22/18 at 09:00 Amlodipine Besylate (Norvasc) 10 mg DAILY PO Last administered on 11/27/18at 07 :58; Start 06/22/18 at 09:00 Baclofen (Lioresal) 10 mg QID PO Last administered on 07/06/18at 16:48; Start 06/21/18 at 21:00 Bisacodyl (Dulcolax Supp) 10 mg PRN DAILY PRN [place] CONSTIPATION; Start 06/21/18 at 20:45 Buspirone HCl (Buspar) 10 mg TID PO Last administered on 07/06/18at 13:02; Start 06/21/18 at 21:00 Divalproex Sodium (Depakote Er) 1,500 mg HS PO Last administered on 07/05/18 19:28; Start 06/21/18 at 21:00 Non-Formulary Medication (Gabapentin ) 800 mg QID PO ; Start 06/21/18 at 21:00 ; Status UNV Levothyroxine Sodium (Synthroid) 50 mcg DAILY06 PO Last administered on 05:44; Start 06/22/18 at 06:00 Multivitamins/ Calcium (Thera-M Plus) 1 tab DAILY PO Last administered on 07/06at 07:58; Start 06/22/18 at 09:00 Olanzapine (ZyPREXA ZYDIS) 2.5 mg PRN Q2HR PRN PO PSYCHOSIS Last administered on 07/04/18 16:58; Start 06/21/18 at 20:45 Olanzapine (ZyPREXA) 5 mg BID PO Last administered on 06/23/18at 08:47; Start 06/21/18 at 21:00; Stop 06/23/18 at 17:06; Status DC Risperidone (RisperDAL) 1.5 mg HS PO Last administered on 06/23/18at 19:45; Start 06/21/18 at 21:00; Stop 06/24/18 at 11:06; Status DC Trazodone HCl (Desyrel) 50 mg PRN QHS PRN PO INSOMNIA Last administered on at 20:10; Start 06/21/18 at 21:00 Nicotine (Nicoderm Cq 7mg) 1 patch PRN DAILY PRN TD SMOKING CESSATION; Start 06/21/18 at 23:30 Vitamin D (Vitamin D3) 50,000 unit WEEKLY PO Last administered on 06/30/18at 08 :41; Start 06/23/18 at 16:30 Olanzapine (ZyPREXA) 5 mg DAILY PO Last administered on 06/25/18at 08:04; Start 06/24/18 at 09:00; Stop 06/26/18 at 00:00; Status DC Risperidone (RisperDAL) 1.75 mg HS PO Last administered on 07/05/18at 19:29; Start 06/24/18 at 21:00 Active Scripts Active Reported Zyprexa (Olanzapine) 5 Mg Tablet 5 Mg PO BID NICODERM CQ 7mg (Nicotine) 1 Each Patch.td24 1 Patch TD PRN DAILY PRN Trazodone Hcl 50 Mg Tablet 50 Mg PO PRN QHS PRN Risperdal (Risperidone) 1 Mg Tablet 1.5 Mg PO HS Analgesic [place] (Methyl Salicylate/Menthol) 28 Gm Oint...g. 1 Gerri TP PRN QID PRN Milk Of Magnesia (Magnesium Hydroxide) 400 Mg/5 Ml Oral.susp 400 Mg PO PRN DAILY PRN Mag-Al Plus Xs Suspension (Mag Hydrox/Al Hydrox/Simeth) 30 Ml Oral.susp 15 Ml PO PRN AFTMEALHC PRN Buspirone Hcl 10 Mg Tablet 10 Mg PO TID Baclofen 10 Mg Tablet 10 Mg PO QID Gabapentin 100 Mg Capsule 100 Mg PO QID Gabapentin 800 Mg Tablet 800 Mg PO QID Levothyroxine Sodium 50 Mcg Tablet 50 Mcg PO DAILYAC Klonopin (Clonazepam) 0.5 Mg Tablet 1 Mg PO BID Norvasc (Amlodipine Besylate) 10 Mg Tablet 10 Mg PO DAILY Oxybutynin Chloride 5 Mg Tablet 2.5 Mg PO BID Depakote Er (Divalproex Sodium) 500 Mg Tab.er.24h 1,500 Mg PO HS Klor-Con M20 (Potassium Chloride) 20 Meq Tab.er.prt 20 Meq PO DAILY Cymbalta (Duloxetine Hcl) 60 Mg Capsule.dr 60 Mg PO DAILY Multivitamin with Iron Tablet (Multivitamin/Iron/Folic Acid) 1 Each Tablet 1 Tab PO DAILY Flomax (Tamsulosin Hcl) 0.4 Mg Cap.er.24h 0.8 Mg PO DAILY Olanzapine 5 Mg Tablet 2.5 Mg PO PRN Q2HR PRN MDD 10mg/ 24 hrs Remeron (Mirtazapine) 15 Mg Tablet 7.5 Mg PO HS Bisacodyl 10 Mg Supp.rect 10 Mg RC PRN DAILY PRN Tylenol (Acetaminophen) 325 Mg Tablet 650 Mg PO PRN Q6HRS PRN I have reviewed the current psychotropics carefully including drug interactions. Risk benefit ratio favors no change other than as noted in my dictated progress note. Diagnosis: Problems: (1) Anxiety disorder (2) Impulse control disorder (3) Schizophrenia, paranoid, chronic with acute exacerbation CATHY EMERY MD Jul 06, 2018 18:57
[2018-07-06] MEDS: DIVALPROEX ER 500 MG TAB.ER.24H PO SCH (20:07)
[2018-07-06] MEDS: risperiDONE 1 MG TABLET. PO SCH (20:08)
[2018-07-07] MEDS: LEVOTHYROXINE 50 MCG TABLET PO SCH (05:45)
[2018-07-07 05:55] VITALS: BP 116/81
[2018-07-07] MEDS: busPIRone 10 MG TABLET. PO SCH ×3 (07:48→19:35)
[2018-07-07] MEDS: MULTIVITAMIN with MINERAL TABLET. PO SCH (07:49)
[2018-07-07] MEDS: CHOLECALCIFEROL (VITAMIN D3) 50,000 UNIT CAPSULE PO SCH (07:49)
[2018-07-07] MEDS: BACLOFEN 10 MG TABLET PO SCH ×4 (07:50→19:36)
[2018-07-07] MEDS: GABAPENTIN 300 MG CAPSULE. PO SCH ×4 (07:50→19:36)
[2018-07-07] MEDS: amLODIPine BESYLATE 10 MG TABLET PO SCH (07:50)
[2018-07-07] MEDS: POTASSIUM CHLORIDE 20 MEQ TABLET.ER. PO SCH (07:51)
[2018-07-07] MEDS: TAMSULOSIN 0.4 MG CAP.ER.24H. PO SCH (07:51)
[2018-07-07] MEDS: clonazePAM 0.5 MG TABLET PO SCH ×2 (07:53→19:36)
[2018-07-07] MEDS: OXYBUTYNIN CHLORIDE 5 MG TABLET PO SCH ×2 (07:57→19:36)
--- NOTE | 2018-07-07 09:16 | PN ---
DATE: 07/05/2018 This is a late entry for 07/05/2018 covers elements not covered in my initial note. SUBJECTIVE: I met with the patient in the evening and reviewed information with Dr. Nunez who had covered for me over the past 1 week. The patient slept 5-1/2 hours previous night. Per nursing report, he has not been aggressive, remains somewhat paranoid at times. At times, he walks fast down the hallway with no particular reason. REVIEW OF SYSTEMS: Ambulation impaired with walker. No CV, , pulmonary, eye, ENT system symptoms on review. MENTAL STATUS EXAM: Oriented reasonably. Speech is coherent, has some latency, has a typical lesa to it. Abstraction fair, computation impaired, language function intact, attention span short. Mood and affect remains somewhat anxious, dysphoric, paranoid at times, but less so than before. LABORATORY DATA: Reviewed. IMPRESSION: Schizoaffective disorder, bipolar type, mixed with psychotic features; anxiety disorder, unspecified. PLAN: Continue trazodone 50 mg at bedtime p.r.n. insomnia, BuSpar 10 mg t.i.d., Klonopin 1 mg b.i.d., Zyprexa p.r.n., Depakote ER 1500 mg at bedtime, valproic acid level therapeutic at 55. Risperdal 1.75 mg p.o. at bedtime. He is being screened for placement and social service staff is coordinating this. CATHY EMERY MD DR: SARINA/nilda JOB#: [id number] / [id number]
[2018-07-07 16:35] VITALS: BP 123/81
[2018-07-07] MEDS: DIVALPROEX ER 500 MG TAB.ER.24H PO SCH (19:35)
[2018-07-07] MEDS: risperiDONE 2 MG TABLET. PO SCH (19:38)
--- NOTE | 2018-07-07 22:54 | PDOC ---
Exam Note: Nguyễn Note: Please also refer to the separate dictated note~for this date of service dictated separately.~Patient seen individually. Discussed the patient with Nursing staff reviewed the chart.~Reviewed interim history and current functioning. Reviewed vital signs,~Labs/ Radiology~and current medications noted below. Continue current treatment with the changes noted in the dictated addendum note Assessment: Vital Signs: Vital Signs Date Time Temp Pulse Resp B/P (MAP) Pulse Ox O2 Delivery O2 Flow Rate FiO2 07/07/18 16:35 97.6 80 16 123/81 (95) 98 07/06/18 15:42 Room Air I&O Intake and Output 07/07/18 07:00 Intake Total 1680 ml Balance 1680 ml Intake Oral 1680 ml # Bowel Movements 1 Current Medications: Meds: Current Medications Acetaminophen (Tylenol) 650 mg PRN Q6HRS PRN PO PAIN / TEMP Last administered on 06/30/18at 10:00; Start 06/21/18 at 20:15 Clonazepam (KlonoPIN) 1 mg BID PO Last administered on 07/07/18 19:36; Start 06/21/18 at 21:00 Gabapentin (Neurontin) 900 mg QID PO Last administered on 07/07/18 19:36; Start 06/21/18 at 21:00 Al Hydroxide/Mg Hydroxide (Mylanta Plus Xs) 15 ml PRN AFTMEALHC PRN PO GI SYMPTOMS; Start 06/21/18 at 20:15 Magnesium Hydroxide (Milk Of Magnesia) 400 mg PRN DAILY PRN PO CONSTIPATION; Start 06/21/18 at 20:15 Multi-Ingredient Ointment (Analgesic [place]) 1 gerri PRN QID PRN TP MUSCLE PAIN; Start 06/21/18 at 20:15 Oxybutynin Chloride (Ditropan) 2.5 mg BID PO Last administered on 07/07/18 19 :36; Start 06/21/18 at 21:00 Potassium Chloride (Klor-Con) 20 meq DAILY PO Last administered on 07/07/18 07:51; Start 06/22/18 at 09:00 Tamsulosin HCl (Flomax) 0.8 mg DAILY PO Last administered on 07/07/18 07:51; Start 06/22/18 at 09:00 Amlodipine Besylate (Norvasc) 10 mg DAILY PO Last administered on 07/07/18at 07 :50; Start 06/22/18 at 09:00 Baclofen (Lioresal) 10 mg QID PO Last administered on 07/07/18at 19:36; Start 06/21/18 at 21:00 Bisacodyl (Dulcolax Supp) 10 mg PRN DAILY PRN [place] CONSTIPATION; Start 06/21/18 at 20:45 Buspirone HCl (Buspar) 10 mg TID PO Last administered on 07/07/18 19:35; Start 06/21/18 at 21:00 Divalproex Sodium (Depakote Er) 1,500 mg HS PO Last administered on 07/07/18 19:35; Start 06/21/18 at 21:00 Non-Formulary Medication (Gabapentin ) 800 mg QID PO ; Start 06/21/18 at 21:00 ; Status UNV Levothyroxine Sodium (Synthroid) 50 mcg DAILY06 PO Last administered on 05:45; Start 06/22/18 at 06:00 Multivitamins/ Calcium (Thera-M Plus) 1 tab DAILY PO Last administered on 07/07 07:49; Start 06/22/18 at 09:00 Olanzapine (ZyPREXA ZYDIS) 2.5 mg PRN Q2HR PRN PO PSYCHOSIS Last administered on 07/04/18at 16:58; Start 06/21/18 at 20:45 Olanzapine (ZyPREXA) 5 mg BID PO Last administered on 06/23/18at 08:47; Start 06/21/18 at 21:00; Stop 06/23/18 at 17:06; Status DC Risperidone (RisperDAL) 1.5 mg HS PO Last administered on 06/23/18at 19:45; Start 06/21/18 at 21:00; Stop 06/24/18 at 11:06; Status DC Trazodone HCl (Desyrel) 50 mg PRN QHS PRN PO INSOMNIA Last administered on at 20:10; Start 06/21/18 at 21:00 Nicotine (Nicoderm Cq 7mg) 1 patch PRN DAILY PRN TD SMOKING CESSATION; Start 06/21/18 at 23:30 Vitamin D (Vitamin D3) 50,000 unit WEEKLY PO Last administered on 07/07/18at 07 :49; Start 06/23/18 at 16:30 Olanzapine (ZyPREXA) 5 mg DAILY PO Last administered on 06/25/18at 08:04; Start 06/24/18 at 09:00; Stop 06/26/18 at 00:00; Status DC Risperidone (RisperDAL) 1.75 mg HS PO Last administered on 07/06/18at 20:08; Start 06/24/18 at 21:00; Stop 07/07/18 at 12:40; Status DC Risperidone (RisperDAL) 2 mg HS PO Last administered on 07/07/18at 19:38; Start 07/07/18 at 21:00 Active Scripts Active Reported Zyprexa (Olanzapine) 5 Mg Tablet 5 Mg PO BID NICODERM CQ 7mg (Nicotine) 1 Each Patch.td24 1 Patch TD PRN DAILY PRN Trazodone Hcl 50 Mg Tablet 50 Mg PO PRN QHS PRN Risperdal (Risperidone) 1 Mg Tablet 1.5 Mg PO HS Analgesic [place] (Methyl Salicylate/Menthol) 28 Gm Oint...g. 1 Gerri TP PRN QID PRN Milk Of Magnesia (Magnesium Hydroxide) 400 Mg/5 Ml Oral.susp 400 Mg PO PRN DAILY PRN Mag-Al Plus Xs Suspension (Mag Hydrox/Al Hydrox/Simeth) 30 Ml Oral.susp 15 Ml PO PRN AFTMEALHC PRN Buspirone Hcl 10 Mg Tablet 10 Mg PO TID Baclofen 10 Mg Tablet 10 Mg PO QID Gabapentin 100 Mg Capsule 100 Mg PO QID Gabapentin 800 Mg Tablet 800 Mg PO QID Levothyroxine Sodium 50 Mcg Tablet 50 Mcg PO DAILYAC Klonopin (Clonazepam) 0.5 Mg Tablet 1 Mg PO BID Norvasc (Amlodipine Besylate) 10 Mg Tablet 10 Mg PO DAILY Oxybutynin Chloride 5 Mg Tablet 2.5 Mg PO BID Depakote Er (Divalproex Sodium) 500 Mg Tab.er.24h 1,500 Mg PO HS Klor-Con M20 (Potassium Chloride) 20 Meq Tab.er.prt 20 Meq PO DAILY Cymbalta (Duloxetine Hcl) 60 Mg Capsule.dr 60 Mg PO DAILY Multivitamin with Iron Tablet (Multivitamin/Iron/Folic Acid) 1 Each Tablet 1 Tab PO DAILY Flomax (Tamsulosin Hcl) 0.4 Mg Cap.er.24h 0.8 Mg PO DAILY Olanzapine 5 Mg Tablet 2.5 Mg PO PRN Q2HR PRN MDD 10mg/ 24 hrs Remeron (Mirtazapine) 15 Mg Tablet 7.5 Mg PO HS Bisacodyl 10 Mg Supp.rect 10 Mg RC PRN DAILY PRN Tylenol (Acetaminophen) 325 Mg Tablet 650 Mg PO PRN Q6HRS PRN I have reviewed the current psychotropics carefully including drug interactions. Risk benefit ratio favors no change other than as noted in my dictated progress note. Diagnosis: Problems: (1) Anxiety disorder (2) Impulse control disorder (3) Schizophrenia, paranoid, chronic with acute exacerbation CATHY EMREY MD Jul 07, 2018 22:53
--- NOTE | 2018-07-08 00:15 | PN ---
DATE: 07/06/2018 PSYCHIATRIC PROGRESS NOTE This late entry 07/06/2018 covers elements not covered in my initial note. SUBJECTIVE: I met with the patient in the evening. The patient slept 7-3/4 hours previous evening. He is compliant with his medications. Otherwise little more social, running up and down the hallway, at times somewhat intensely. Per nursing staff, he appears psychotic at times, fearful, but less so as I met with him. REVIEW OF SYSTEMS: Ambulation impaired with walker. No CV, , pulmonary, eye, ENT system symptoms on review. MENTAL STATUS EXAM: Reasonably oriented to place and situation. Speech has some latency, coherent, often responses monosyllabic. Abstraction fair, computation impaired, language function intact. Mood and affect somewhat dysphoric, anxious, suspicious, but better than before. LABORATORY DATA: Reviewed. IMPRESSION: Schizoaffective disorder, bipolar type, mixed with psychotic features, in partial remission; anxiety disorder, unspecified. Rest unchanged. PLAN: Continue psychotropics from initial note, but we may need to increase Risperdal in due course. MAN Ty EMERY MD DR: SARINA/nilda JOB#: [id number] / [id number]
[2018-07-08 05:33] VITALS: BP 142/88
[2018-07-08] MEDS: LEVOTHYROXINE 50 MCG TABLET PO SCH (05:40)
[2018-07-08] MEDS: TAMSULOSIN 0.4 MG CAP.ER.24H. PO SCH (07:45)
[2018-07-08] MEDS: GABAPENTIN 300 MG CAPSULE. PO SCH ×4 (07:45→19:57)
[2018-07-08] MEDS: BACLOFEN 10 MG TABLET PO SCH ×2 (07:46→08:05)
[2018-07-08] MEDS: POTASSIUM CHLORIDE 20 MEQ TABLET.ER. PO SCH (07:46)
[2018-07-08] MEDS: busPIRone 10 MG TABLET. PO SCH ×3 (07:46→19:58)
[2018-07-08] MEDS: OXYBUTYNIN CHLORIDE 5 MG TABLET PO SCH ×2 (07:47→19:58)
[2018-07-08] MEDS: MULTIVITAMIN with MINERAL TABLET. PO SCH (07:48)
[2018-07-08] MEDS: amLODIPine BESYLATE 10 MG TABLET PO SCH (07:48)
[2018-07-08] MEDS: clonazePAM 0.5 MG TABLET PO SCH ×2 (07:50→20:02)
[2018-07-08 15:48] VITALS: BP 106/76
[2018-07-08] MEDS: risperiDONE 2 MG TABLET. PO SCH (19:58)
[2018-07-08] MEDS: DIVALPROEX ER 500 MG TAB.ER.24H PO SCH (19:59)
--- NOTE | 2018-07-08 22:43 | PDOC ---
Exam Note: Nguyễn Note: Please also refer to the separate dictated note~for this date of service dictated separately.~Patient seen individually. Discussed the patient with Nursing staff reviewed the chart.~Reviewed interim history and current functioning. Reviewed vital signs,~Labs/ Radiology~and current medications noted below. Continue current treatment with the changes noted in the dictated addendum note Assessment: Vital Signs: Vital Signs Date Time Temp Pulse Resp B/P (MAP) Pulse Ox O2 Delivery O2 Flow Rate FiO2 07/08/18 15:48 97.6 88 18 106/76 (86) 98 Room Air I&O Intake and Output 07/08/18 07:00 Intake Total 1320 ml Balance 1320 ml Intake Oral 1320 ml # Bowel Movements 1 Current Medications: Meds: Current Medications Acetaminophen (Tylenol) 650 mg PRN Q6HRS PRN PO PAIN / TEMP Last administered on 06/30/18at 10:00; Start 06/21/18 at 20:15 Clonazepam (KlonoPIN) 1 mg BID PO Last administered on 07/08/18at 20:02; Start 06/21/18 at 21:00 Gabapentin (Neurontin) 900 mg QID PO Last administered on 07/08/18at 16:58; Start 06/21/18 at 21:00; Stop 07/08/18 at 17:47; Status DC Al Hydroxide/Mg Hydroxide (Mylanta Plus Xs) 15 ml PRN AFTMEALHC PRN PO GI SYMPTOMS; Start 06/21/18 at 20:15 Magnesium Hydroxide (Milk Of Magnesia) 400 mg PRN DAILY PRN PO CONSTIPATION; Start 06/21/18 at 20:15 Multi-Ingredient Ointment (Analgesic [place]) 1 gerri PRN QID PRN TP MUSCLE PAIN; Start 06/21/18 at 20:15 Oxybutynin Chloride (Ditropan) 2.5 mg BID PO Last administered on 07/08/18at 19 :58; Start 06/21/18 at 21:00 Potassium Chloride (Klor-Con) 20 meq DAILY PO Last administered on 07/08/18at 07:46; Start 06/22/18 at 09:00 Tamsulosin HCl (Flomax) 0.8 mg DAILY PO Last administered on 07/08/18at 07:45; Start 06/22/18 at 09:00 Amlodipine Besylate (Norvasc) 10 mg DAILY PO Last administered on 07/08/18 07 :48; Start 06/22/18 at 09:00 Baclofen (Lioresal) 10 mg QID PO Last administered on 07/07/18at 19:36; Start 06/21/18 at 21:00; Stop 07/08/18 at 11:48; Status DC Bisacodyl (Dulcolax Supp) 10 mg PRN DAILY PRN [place] CONSTIPATION; Start 06/21/18 at 20:45 Buspirone HCl (Buspar) 10 mg TID PO Last administered on 07/08/18 19:58; Start 06/21/18 at 21:00 Divalproex Sodium (Depakote Er) 1,500 mg HS PO Last administered on 07/08/18 19:59; Start 06/21/18 at 21:00 Non-Formulary Medication (Gabapentin ) 800 mg QID PO ; Start 06/21/18 at 21:00 ; Status UNV Levothyroxine Sodium (Synthroid) 50 mcg DAILY06 PO Last administered on 05:40; Start 06/22/18 at 06:00 Multivitamins/ Calcium (Thera-M Plus) 1 tab DAILY PO Last administered on 07/08 07:48; Start 06/22/18 at 09:00 Olanzapine (ZyPREXA ZYDIS) 2.5 mg PRN Q2HR PRN PO PSYCHOSIS Last administered on 07/04/18 16:58; Start 06/21/18 at 20:45 Olanzapine (ZyPREXA) 5 mg BID PO Last administered on 06/23/18at 08:47; Start 06/21/18 at 21:00; Stop 06/23/18 at 17:06; Status DC Risperidone (RisperDAL) 1.5 mg HS PO Last administered on 06/23/18at 19:45; Start 06/21/18 at 21:00; Stop 06/24/18 at 11:06; Status DC Trazodone HCl (Desyrel) 50 mg PRN QHS PRN PO INSOMNIA Last administered on at 20:10; Start 06/21/18 at 21:00 Nicotine (Nicoderm Cq 7mg) 1 patch PRN DAILY PRN TD SMOKING CESSATION; Start 06/21/18 at 23:30 Vitamin D (Vitamin D3) 50,000 unit WEEKLY PO Last administered on 07/07/18at 07 :49; Start 06/23/18 at 16:30 Olanzapine (ZyPREXA) 5 mg DAILY PO Last administered on 06/25/18at 08:04; Start 06/24/18 at 09:00; Stop 06/26/18 at 00:00; Status DC Risperidone (RisperDAL) 1.75 mg HS PO Last administered on 07/06/18at 20:08; Start 06/24/18 at 21:00; Stop 07/07/18 at 12:40; Status DC Risperidone (RisperDAL) 2 mg HS PO Last administered on 07/08/18at 19:58; Start 07/07/18 at 21:00 Gabapentin (Neurontin) 600 mg QID PO Last administered on 07/08/18at 19:57; Start 07/08/18 at 21:00 Nicotine (Nicoderm Cq 21mg) 1 patch DAILY TD ; Start 07/09/18 at 09:00 Active Scripts Active Reported Zyprexa (Olanzapine) 5 Mg Tablet 5 Mg PO BID NICODERM CQ 7mg (Nicotine) 1 Each Patch.td24 1 Patch TD PRN DAILY PRN Trazodone Hcl 50 Mg Tablet 50 Mg PO PRN QHS PRN Risperdal (Risperidone) 1 Mg Tablet 1.5 Mg PO HS Analgesic [place] (Methyl Salicylate/Menthol) 28 Gm Oint...g. 1 Gerri TP PRN QID PRN Milk Of Magnesia (Magnesium Hydroxide) 400 Mg/5 Ml Oral.susp 400 Mg PO PRN DAILY PRN Mag-Al Plus Xs Suspension (Mag Hydrox/Al Hydrox/Simeth) 30 Ml Oral.susp 15 Ml PO PRN AFTMEALHC PRN Buspirone Hcl 10 Mg Tablet 10 Mg PO TID Baclofen 10 Mg Tablet 10 Mg PO QID Gabapentin 100 Mg Capsule 100 Mg PO QID Gabapentin 800 Mg Tablet 800 Mg PO QID Levothyroxine Sodium 50 Mcg Tablet 50 Mcg PO DAILYAC Klonopin (Clonazepam) 0.5 Mg Tablet 1 Mg PO BID Norvasc (Amlodipine Besylate) 10 Mg Tablet 10 Mg PO DAILY Oxybutynin Chloride 5 Mg Tablet 2.5 Mg PO BID Depakote Er (Divalproex Sodium) 500 Mg Tab.er.24h 1,500 Mg PO HS Klor-Con M20 (Potassium Chloride) 20 Meq Tab.er.prt 20 Meq PO DAILY Cymbalta (Duloxetine Hcl) 60 Mg Capsule.dr 60 Mg PO DAILY Multivitamin with Iron Tablet (Multivitamin/Iron/Folic Acid) 1 Each Tablet 1 Tab PO DAILY Flomax (Tamsulosin Hcl) 0.4 Mg Cap.er.24h 0.8 Mg PO DAILY Olanzapine 5 Mg Tablet 2.5 Mg PO PRN Q2HR PRN MDD 10mg/ 24 hrs Remeron (Mirtazapine) 15 Mg Tablet 7.5 Mg PO HS Bisacodyl 10 Mg Supp.rect 10 Mg RC PRN DAILY PRN Tylenol (Acetaminophen) 325 Mg Tablet 650 Mg PO PRN Q6HRS PRN I have reviewed the current psychotropics carefully including drug interactions. Risk benefit ratio favors no change other than as noted in my dictated progress note. Diagnosis: Problems: (1) Anxiety disorder (2) Impulse control disorder (3) Schizophrenia, paranoid, chronic with acute exacerbation CATYH EMERY MD Jul 08, 2018 22:43
--- NOTE | 2018-07-09 04:00 | PN ---
DATE: 07/07/2018 PSYCHIATRIC PROGRESS NOTE This late entry 07/07/2018 covers elements not covered in my initial note. SUBJECTIVE: I met with the patient in the evening, staffed at treatment team meeting with the entire team earlier in the day. The patient slept 5-1/4 hours previous night. He remains intermittently psychotic, but less so than before. He has had no active hallucinations. He is fixated on wanting a reduction of his Neurontin and baclofen, and I will defer to Dr. Rios. REVIEW OF SYSTEMS: Ambulation impaired with walker. No CV, , pulmonary, eye system symptoms on review. MENTAL STATUS EXAM: Reasonably oriented. Speech has some latency, coherent. Abstraction fair, computation impaired, language function intact, attention span short. Mood and affect remain somewhat withdrawn at times. LABORATORY DATA: Reviewed. IMPRESSION: Schizoaffective disorder, bipolar type, mixed with psychotic features, in partial remission. Rest unchanged. PLAN: Increase Risperdal from 1.75 mg to 2 mg p.o. at bedtime. Rest unchanged from initial note. MAN Ty EMERY MD DR: SARINA/nilda JOB#: [id number] / [id number]
[2018-07-09] MEDS: LEVOTHYROXINE 50 MCG TABLET PO SCH (06:18)
[2018-07-09 06:21] VITALS: BP 130/80
[2018-07-09] MEDS: OXYBUTYNIN CHLORIDE 5 MG TABLET PO SCH ×2 (07:24→20:54)
[2018-07-09] MEDS: GABAPENTIN 300 MG CAPSULE. PO SCH ×4 (07:25→20:54)
[2018-07-09] MEDS: MULTIVITAMIN with MINERAL TABLET. PO SCH (07:25)
[2018-07-09] MEDS: busPIRone 10 MG TABLET. PO SCH ×3 (07:25→20:54)
[2018-07-09] MEDS: TAMSULOSIN 0.4 MG CAP.ER.24H. PO SCH (07:25)
[2018-07-09] MEDS: POTASSIUM CHLORIDE 20 MEQ TABLET.ER. PO SCH (07:25)
[2018-07-09] MEDS: amLODIPine BESYLATE 10 MG TABLET PO SCH (07:26)
[2018-07-09] MEDS: clonazePAM 0.5 MG TABLET PO SCH ×2 (07:27→20:58)
[2018-07-09] MEDS: NICOTINE 21MG PATCH. TD SCH (08:32)
[2018-07-09 15:57] VITALS: BP 135/87
--- NOTE | 2018-07-09 16:46 | PN ---
DATE: 07/08/2018 PSYCHIATRIC PROGRESS NOTE This is a late entry 07/08/2018 covers elements not covered in my initial note. SUBJECTIVE: I met with the patient in his room in the evening. The patient has been pleasant, slept 7 hours previous night. Remains somewhat anxious about placement options addressed with him. REVIEW OF SYSTEMS: No CV, , pulmonary, eye system symptoms on review. Gait unsteady with walker. MENTAL STATUS EXAM: Reasonably oriented. Speech is coherent, abstraction fair, computation impaired, language function intact, attention span short. Mood and affect, lability is improved. LABORATORY DATA: Reviewed. IMPRESSION: Schizoaffective disorder, bipolar type, mixed with psychotic features, in partial remission. Rest unchanged. PLAN: Continue psychotropics from initial note for now. MAN Ty EMERY MD DR: SARINA/nilda JOB#: [id number] / [id number]
[2018-07-09] MEDS: risperiDONE 2 MG TABLET. PO SCH (20:54)
[2018-07-09] MEDS: DIVALPROEX ER 500 MG TAB.ER.24H PO SCH (20:55)
[2018-07-09] MEDS: ACETAMINOPHEN 325 MG TABLET PO PRN (22:06)
--- NOTE | 2018-07-09 22:31 | PDOC ---
Exam Note: Nguyễn Note: Please also refer to the separate dictated note~for this date of service dictated separately.~Patient seen individually. Discussed the patient with Nursing staff reviewed the chart.~Reviewed interim history and current functioning. Reviewed vital signs,~Labs/ Radiology~and current medications noted below. Continue current treatment with the changes noted in the dictated addendum note Assessment: Vital Signs: Vital Signs Date Time Temp Pulse Resp B/P (MAP) Pulse Ox O2 Delivery O2 Flow Rate FiO2 07/09/18 15:57 98.5 94 20 135/87 (103) 95 Room Air I&O Intake and Output 07/09/18 07:00 Intake Total 2040 ml Balance 2040 ml Intake Oral 2040 ml Current Medications: Meds: Current Medications Acetaminophen (Tylenol) 650 mg PRN Q6HRS PRN PO PAIN / TEMP Last administered on 07/09/18at 22:06; Start 06/21/18 at 20:15 Clonazepam (KlonoPIN) 1 mg BID PO Last administered on 07/09/18at 20:58; Start 06/21/18 at 21:00 Gabapentin (Neurontin) 900 mg QID PO Last administered on 07/08/18at 16:58; Start 06/21/18 at 21:00; Stop 07/08/18 at 17:47; Status DC Al Hydroxide/Mg Hydroxide (Mylanta Plus Xs) 15 ml PRN AFTMEALHC PRN PO GI SYMPTOMS; Start 06/21/18 at 20:15 Magnesium Hydroxide (Milk Of Magnesia) 400 mg PRN DAILY PRN PO CONSTIPATION; Start 06/21/18 at 20:15 Multi-Ingredient Ointment (Analgesic [place]) 1 gerri PRN QID PRN TP MUSCLE PAIN; Start 06/21/18 at 20:15 Oxybutynin Chloride (Ditropan) 2.5 mg BID PO Last administered on 07/09/18at 20 :54; Start 06/21/18 at 21:00 Potassium Chloride (Klor-Con) 20 meq DAILY PO Last administered on 07/09/18at 07:25; Start 06/22/18 at 09:00 Tamsulosin HCl (Flomax) 0.8 mg DAILY PO Last administered on 07/09/18at 07:25; Start 06/22/18 at 09:00 Amlodipine Besylate (Norvasc) 10 mg DAILY PO Last administered on 07/09/18 07 :26; Start 06/22/18 at 09:00 Baclofen (Lioresal) 10 mg QID PO Last administered on 07/07/18at 19:36; Start 06/21/18 at 21:00; Stop 07/08/18 at 11:48; Status DC Bisacodyl (Dulcolax Supp) 10 mg PRN DAILY PRN [place] CONSTIPATION; Start 06/21/18 at 20:45 Buspirone HCl (Buspar) 10 mg TID PO Last administered on 07/09/18at 20:54; Start 06/21/18 at 21:00 Divalproex Sodium (Depakote Er) 1,500 mg HS PO Last administered on 07/09/18 20:55; Start 06/21/18 at 21:00 Non-Formulary Medication (Gabapentin ) 800 mg QID PO ; Start 06/21/18 at 21:00 ; Status UNV Levothyroxine Sodium (Synthroid) 50 mcg DAILY06 PO Last administered on at 06:18; Start 06/22/18 at 06:00 Multivitamins/ Calcium (Thera-M Plus) 1 tab DAILY PO Last administered on 07/09 07:25; Start 06/22/18 at 09:00 Olanzapine (ZyPREXA ZYDIS) 2.5 mg PRN Q2HR PRN PO PSYCHOSIS Last administered on 07/04/18at 16:58; Start 06/21/18 at 20:45 Olanzapine (ZyPREXA) 5 mg BID PO Last administered on 06/23/18at 08:47; Start 06/21/18 at 21:00; Stop 06/23/18 at 17:06; Status DC Risperidone (RisperDAL) 1.5 mg HS PO Last administered on 06/23/18at 19:45; Start 06/21/18 at 21:00; Stop 06/24/18 at 11:06; Status DC Trazodone HCl (Desyrel) 50 mg PRN QHS PRN PO INSOMNIA Last administered on at 20:10; Start 06/21/18 at 21:00 Nicotine (Nicoderm Cq 7mg) 1 patch PRN DAILY PRN TD SMOKING CESSATION; Start 06/21/18 at 23:30; Stop 07/09/18 at 05:39; Status DC Vitamin D (Vitamin D3) 50,000 unit WEEKLY PO Last administered on 07/07/18at 07 :49; Start 06/23/18 at 16:30 Olanzapine (ZyPREXA) 5 mg DAILY PO Last administered on 06/25/18at 08:04; Start 06/24/18 at 09:00; Stop 06/26/18 at 00:00; Status DC Risperidone (RisperDAL) 1.75 mg HS PO Last administered on 07/06/18at 20:08; Start 06/24/18 at 21:00; Stop 07/07/18 at 12:40; Status DC Risperidone (RisperDAL) 2 mg HS PO Last administered on 07/09/18at 20:54; Start 07/07/18 at 21:00 Gabapentin (Neurontin) 600 mg QID PO Last administered on 07/09/18at 20:54; Start 07/08/18 at 21:00 Nicotine (Nicoderm Cq 21mg) 1 patch DAILY TD Last administered on 07/09/18at 08 :32; Start 07/09/18 at 09:00 Active Scripts Active Reported Zyprexa (Olanzapine) 5 Mg Tablet 5 Mg PO BID NICODERM CQ 7mg (Nicotine) 1 Each Patch.td24 1 Patch TD PRN DAILY PRN Trazodone Hcl 50 Mg Tablet 50 Mg PO PRN QHS PRN Risperdal (Risperidone) 1 Mg Tablet 1.5 Mg PO HS Analgesic [place] (Methyl Salicylate/Menthol) 28 Gm Oint...g. 1 Gerri TP PRN QID PRN Milk Of Magnesia (Magnesium Hydroxide) 400 Mg/5 Ml Oral.susp 400 Mg PO PRN DAILY PRN Mag-Al Plus Xs Suspension (Mag Hydrox/Al Hydrox/Simeth) 30 Ml Oral.susp 15 Ml PO PRN AFTMEALHC PRN Buspirone Hcl 10 Mg Tablet 10 Mg PO TID Baclofen 10 Mg Tablet 10 Mg PO QID Gabapentin 100 Mg Capsule 100 Mg PO QID Gabapentin 800 Mg Tablet 800 Mg PO QID Levothyroxine Sodium 50 Mcg Tablet 50 Mcg PO DAILYAC Klonopin (Clonazepam) 0.5 Mg Tablet 1 Mg PO BID Norvasc (Amlodipine Besylate) 10 Mg Tablet 10 Mg PO DAILY Oxybutynin Chloride 5 Mg Tablet 2.5 Mg PO BID Depakote Er (Divalproex Sodium) 500 Mg Tab.er.24h 1,500 Mg PO HS Klor-Con M20 (Potassium Chloride) 20 Meq Tab.er.prt 20 Meq PO DAILY Cymbalta (Duloxetine Hcl) 60 Mg Capsule.dr 60 Mg PO DAILY Multivitamin with Iron Tablet (Multivitamin/Iron/Folic Acid) 1 Each Tablet 1 Tab PO DAILY Flomax (Tamsulosin Hcl) 0.4 Mg Cap.er.24h 0.8 Mg PO DAILY Olanzapine 5 Mg Tablet 2.5 Mg PO PRN Q2HR PRN MDD 10mg/ 24 hrs Remeron (Mirtazapine) 15 Mg Tablet 7.5 Mg PO HS Bisacodyl 10 Mg Supp.rect 10 Mg RC PRN DAILY PRN Tylenol (Acetaminophen) 325 Mg Tablet 650 Mg PO PRN Q6HRS PRN I have reviewed the current psychotropics carefully including drug interactions. Risk benefit ratio favors no change other than as noted in my dictated progress note. Diagnosis: Problems: (1) Anxiety disorder (2) Impulse control disorder (3) Schizophrenia, paranoid, chronic with acute exacerbation CATHY EMERY MD Jul 09, 2018 22:31
[2018-07-10 05:56] VITALS: BP 125/81
[2018-07-10] MEDS: LEVOTHYROXINE 50 MCG TABLET PO SCH (06:33)
[2018-07-10] MEDS: OXYBUTYNIN CHLORIDE 5 MG TABLET PO SCH ×2 (08:09→19:41)
[2018-07-10] MEDS: busPIRone 10 MG TABLET. PO SCH ×3 (08:09→19:40)
[2018-07-10] MEDS: clonazePAM 0.5 MG TABLET PO SCH ×2 (08:10→19:43)
[2018-07-10] MEDS: TAMSULOSIN 0.4 MG CAP.ER.24H. PO SCH (08:10)
[2018-07-10] MEDS: GABAPENTIN 300 MG CAPSULE. PO SCH ×4 (08:11→19:41)
[2018-07-10] MEDS: POTASSIUM CHLORIDE 20 MEQ TABLET.ER. PO SCH (08:11)
[2018-07-10] MEDS: amLODIPine BESYLATE 10 MG TABLET PO SCH (08:13)
[2018-07-10] MEDS: MULTIVITAMIN with MINERAL TABLET. PO SCH (08:13)
[2018-07-10 09:05] LABS: BASO % 1 % (0-3); EOS # 0.1 x10^3/uL (0.0-0.7); EOS % 1 % (0-3); HEMATOCRIT 45.3 % (39.0-53.0); HEMOGLOBIN 15.3 g/dL (13.0-17.5); LYMPH # 1.4 x10^3/uL (1.0-4.8); LYMPH % 25 % (24-48); MEAN CORPUSCULAR HEMOGLOBIN 30 pg (25-35); MEAN CORPUSCULAR HGB CONC 34 g/dL (31-37); MEAN CORPUSCULAR VOLUME 89 fL (79-100); MONO # 0.4 x10^3/uL (0.0-1.1); MONO % 8 % (0-9); NEUT # 3.7 x10^3uL (1.8-7.7); NEUT % 65 % (31-73); PLATELET COUNT 369 x10^3/uL (140-400); RED CELL DISTRIBUTION WIDTH 13.1 % (11.5-14.5); WHITE BLOOD COUNT 5.7 x10^3/uL (4.0-11.0)
[2018-07-10 09:16] LABS: ALBUMIN 3.5 g/dL (3.4-5.0); ALBUMIN/GLOBULIN RATIO 0.9 (1.0-1.7); CALCIUM 8.7 mg/dL (8.5-10.1); CREATININE 0.5 mg/dL (0.7-1.3); GFR 171.4; POTASSIUM 4.3 mmol/L (3.5-5.1); TOTAL BILIRUBIN 0.3 mg/dL (0.2-1.0); TOTAL PROTEIN 7.5 g/dL (6.4-8.2)
[2018-07-10] MEDS: NICOTINE 21MG PATCH. TD SCH (09:55)
[2018-07-10 15:49] VITALS: BP 132/81
[2018-07-10] MEDS: DIVALPROEX ER 500 MG TAB.ER.24H PO SCH (19:40)
[2018-07-10] MEDS: risperiDONE 2 MG TABLET. PO SCH (19:41)
--- NOTE | 2018-07-10 21:43 | PDOC ---
Exam Note: Nguyễn Note: Please also refer to the separate dictated note~for this date of service dictated separately.~Patient seen individually. Discussed the patient with Nursing staff reviewed the chart.~Reviewed interim history and current functioning. Reviewed vital signs,~Labs/ Radiology~and current medications noted below. Continue current treatment with the changes noted in the dictated addendum note Assessment: Vital Signs: Vital Signs Date Time Temp Pulse Resp B/P (MAP) Pulse Ox O2 Delivery O2 Flow Rate FiO2 07/10/18 15:49 99.1 84 20 132/81 (98) 96 Room Air I&O Intake and Output 07/10/18 07:00 Intake Total 1800 ml Balance 1800 ml Intake Oral 1800 ml Labs: Laboratory Tests Test 07/10/18 08:52 White Blood Count 5.7 x10^3/uL (4.0-11.0) Red Blood Count 5.10 x10^6/uL (4.30-5.70) Hemoglobin 15.3 g/dL (13.0-17.5) Hematocrit 45.3 % (39.0-53.0) Mean Corpuscular Volume 89 fL (79-100) Mean Corpuscular Hemoglobin 30 pg (25-35) Mean Corpuscular Hemoglobin Concent 34 g/dL (31-37) Red Cell Distribution Width 13.1 % (11.5-14.5) Platelet Count 369 x10^3/uL (140-400) Neutrophils (%) (Auto) 65 % (31-73) Lymphocytes (%) (Auto) 25 % (24-48) Monocytes (%) (Auto) 8 % (0-9) Eosinophils (%) (Auto) 1 % (0-3) Basophils (%) (Auto) 1 % (0-3) Neutrophils # (Auto) 3.7 x10^3uL (1.8-7.7) Lymphocytes # (Auto) 1.4 x10^3/uL (1.0-4.8) Monocytes # (Auto) 0.4 x10^3/uL (0.0-1.1) Eosinophils # (Auto) 0.1 x10^3/uL (0.0-0.7) Basophils # (Auto) 0.0 x10^3/uL (0.0-0.2) Sodium Level 133 mmol/L (136-145) L Potassium Level 4.3 mmol/L (3.5-5.1) Chloride Level 97 mmol/L (98-107) L Carbon Dioxide Level 27 mmol/L (21-32) Anion Gap 9 (6-14) Blood Urea Nitrogen 7 mg/dL (8-26) L Creatinine 0.5 mg/dL (0.7-1.3) L Estimated GFR (Cockcroft-Gault) 171.4 BUN/Creatinine Ratio 14 (6-20) Glucose Level 139 mg/dL (70-99) H Calcium Level 8.7 mg/dL (8.5-10.1) Total Bilirubin 0.3 mg/dL (0.2-1.0) Aspartate Amino Transferase (AST) 15 U/L (15-37) Alanine Aminotransferase (ALT) 20 U/L (16-63) Alkaline Phosphatase 88 U/L (46-116) Total Protein 7.5 g/dL (6.4-8.2) Albumin 3.5 g/dL (3.4-5.0) Albumin/Globulin Ratio 0.9 (1.0-1.7) L Current Medications: Meds: Current Medications Acetaminophen (Tylenol) 650 mg PRN Q6HRS PRN PO PAIN / TEMP Last administered on 07/09/18at 22:06; Start 06/21/18 at 20:15 Clonazepam (KlonoPIN) 1 mg BID PO Last administered on 07/10/18at 19:43; Start 06/21/18 at 21:00 Gabapentin (Neurontin) 900 mg QID PO Last administered on 07/08/18at 16:58; Start 06/21/18 at 21:00; Stop 07/08/18 at 17:47; Status DC Al Hydroxide/Mg Hydroxide (Mylanta Plus Xs) 15 ml PRN AFTMEALHC PRN PO GI SYMPTOMS; Start 06/21/18 at 20:15 Magnesium Hydroxide (Milk Of Magnesia) 400 mg PRN DAILY PRN PO CONSTIPATION; Start 06/21/18 at 20:15 Multi-Ingredient Ointment (Analgesic [place]) 1 gerri PRN QID PRN TP MUSCLE PAIN; Start 06/21/18 at 20:15 Oxybutynin Chloride (Ditropan) 2.5 mg BID PO Last administered on 07/10/18at 19: 41; Start 06/21/18 at 21:00 Potassium Chloride (Klor-Con) 20 meq DAILY PO Last administered on 07/10/18 08 :11; Start 06/22/18 at 09:00 Tamsulosin HCl (Flomax) 0.8 mg DAILY PO Last administered on 07/10/18 08:10; Start 06/22/18 at 09:00 Amlodipine Besylate (Norvasc) 10 mg DAILY PO Last administered on 07/10/18 08: 13; Start 06/22/18 at 09:00 Baclofen (Lioresal) 10 mg QID PO Last administered on 07/07/18 19:36; Start 06/21/18 at 21:00; Stop 07/08/18 at 11:48; Status DC Bisacodyl (Dulcolax Supp) 10 mg PRN DAILY PRN [place] CONSTIPATION; Start 06/21/18 at 20:45 Buspirone HCl (Buspar) 10 mg TID PO Last administered on 07/10/18 19:40; Start 06/21/18 at 21:00 Divalproex Sodium (Depakote Er) 1,500 mg HS PO Last administered on 07/10/18 19:40; Start 06/21/18 at 21:00 Non-Formulary Medication (Gabapentin ) 800 mg QID PO ; Start 06/21/18 at 21:00 ; Status UNV Levothyroxine Sodium (Synthroid) 50 mcg DAILY06 PO Last administered on 06:33; Start 06/22/18 at 06:00 Multivitamins/ Calcium (Thera-M Plus) 1 tab DAILY PO Last administered on 08:13; Start 06/22/18 at 09:00 Olanzapine (ZyPREXA ZYDIS) 2.5 mg PRN Q2HR PRN PO PSYCHOSIS Last administered on 07/04/18 16:58; Start 06/21/18 at 20:45 Olanzapine (ZyPREXA) 5 mg BID PO Last administered on 06/23/18 08:47; Start 06/21/18 at 21:00; Stop 06/23/18 at 17:06; Status DC Risperidone (RisperDAL) 1.5 mg HS PO Last administered on 06/23/18at 19:45; Start 06/21/18 at 21:00; Stop 06/24/18 at 11:06; Status DC Trazodone HCl (Desyrel) 50 mg PRN QHS PRN PO INSOMNIA Last administered on at 20:10; Start 06/21/18 at 21:00 Nicotine (Nicoderm Cq 7mg) 1 patch PRN DAILY PRN TD SMOKING CESSATION; Start 06/21/18 at 23:30; Stop 07/09/18 at 05:39; Status DC Vitamin D (Vitamin D3) 50,000 unit WEEKLY PO Last administered on 07/07/18at 07 :49; Start 06/23/18 at 16:30 Olanzapine (ZyPREXA) 5 mg DAILY PO Last administered on 06/25/18at 08:04; Start 06/24/18 at 09:00; Stop 06/26/18 at 00:00; Status DC Risperidone (RisperDAL) 1.75 mg HS PO Last administered on 07/06/18at 20:08; Start 06/24/18 at 21:00; Stop 07/07/18 at 12:40; Status DC Risperidone (RisperDAL) 2 mg HS PO Last administered on 07/10/18at 19:41; Start 07/07/18 at 21:00 Gabapentin (Neurontin) 600 mg QID PO Last administered on 07/10/18at 19:41; Start 07/08/18 at 21:00 Nicotine (Nicoderm Cq 21mg) 1 patch DAILY TD Last administered on 07/10/18at 09: 55; Start 07/09/18 at 09:00 Active Scripts Active Reported Zyprexa (Olanzapine) 5 Mg Tablet 5 Mg PO BID NICODERM CQ 7mg (Nicotine) 1 Each Patch.td24 1 Patch TD PRN DAILY PRN Trazodone Hcl 50 Mg Tablet 50 Mg PO PRN QHS PRN Risperdal (Risperidone) 1 Mg Tablet 1.5 Mg PO HS Analgesic [place] (Methyl Salicylate/Menthol) 28 Gm Oint...g. 1 Gerri TP PRN QID PRN Milk Of Magnesia (Magnesium Hydroxide) 400 Mg/5 Ml Oral.susp 400 Mg PO PRN DAILY PRN Mag-Al Plus Xs Suspension (Mag Hydrox/Al Hydrox/Simeth) 30 Ml Oral.susp 15 Ml PO PRN AFTMEALHC PRN Buspirone Hcl 10 Mg Tablet 10 Mg PO TID Baclofen 10 Mg Tablet 10 Mg PO QID Gabapentin 100 Mg Capsule 100 Mg PO QID Gabapentin 800 Mg Tablet 800 Mg PO QID Levothyroxine Sodium 50 Mcg Tablet 50 Mcg PO DAILYAC Klonopin (Clonazepam) 0.5 Mg Tablet 1 Mg PO BID Norvasc (Amlodipine Besylate) 10 Mg Tablet 10 Mg PO DAILY Oxybutynin Chloride 5 Mg Tablet 2.5 Mg PO BID Depakote Er (Divalproex Sodium) 500 Mg Tab.er.24h 1,500 Mg PO HS Klor-Con M20 (Potassium Chloride) 20 Meq Tab.er.prt 20 Meq PO DAILY Cymbalta (Duloxetine Hcl) 60 Mg Capsule.dr 60 Mg PO DAILY Multivitamin with Iron Tablet (Multivitamin/Iron/Folic Acid) 1 Each Tablet 1 Tab PO DAILY Flomax (Tamsulosin Hcl) 0.4 Mg Cap.er.24h 0.8 Mg PO DAILY Olanzapine 5 Mg Tablet 2.5 Mg PO PRN Q2HR PRN MDD 10mg/ 24 hrs Remeron (Mirtazapine) 15 Mg Tablet 7.5 Mg PO HS Bisacodyl 10 Mg Supp.rect 10 Mg RC PRN DAILY PRN Tylenol (Acetaminophen) 325 Mg Tablet 650 Mg PO PRN Q6HRS PRN I have reviewed the current psychotropics carefully including drug interactions. Risk benefit ratio favors no change other than as noted in my dictated progress note. Diagnosis: Problems: (1) Anxiety disorder (2) Impulse control disorder (3) Schizophrenia, paranoid, chronic with acute exacerbation CATHY EMERY MD Jul 10, 2018 21:43
[2018-07-11] MEDS: traZODone 50 MG TABLET. PO PRN ×2 (01:48→20:19)
[2018-07-11 05:48] VITALS: BP 115/79
[2018-07-11] MEDS: LEVOTHYROXINE 50 MCG TABLET PO SCH (06:26)
[2018-07-11] MEDS: POTASSIUM CHLORIDE 20 MEQ TABLET.ER. PO SCH (08:02)
[2018-07-11] MEDS: TAMSULOSIN 0.4 MG CAP.ER.24H. PO SCH (08:02)
[2018-07-11] MEDS: clonazePAM 0.5 MG TABLET PO SCH ×2 (08:02→20:18)
[2018-07-11] MEDS: OXYBUTYNIN CHLORIDE 5 MG TABLET PO SCH ×2 (08:02→20:19)
[2018-07-11] MEDS: busPIRone 10 MG TABLET. PO SCH ×3 (08:02→20:19)
[2018-07-11] MEDS: GABAPENTIN 300 MG CAPSULE. PO SCH ×4 (08:02→20:19)
[2018-07-11] MEDS: MULTIVITAMIN with MINERAL TABLET. PO SCH (08:03)
[2018-07-11] MEDS: NICOTINE 21MG PATCH. TD SCH (08:03)
[2018-07-11] MEDS: amLODIPine BESYLATE 10 MG TABLET PO SCH (08:03)
--- NOTE | 2018-07-11 15:03 | PN ---
DATE: 07/09/2018 PSYCHIATRIC PROGRESS NOTE This is a late entry 07/09/2018 covers elements not covered in my initial note. SUBJECTIVE: I met with the patient in the evening. The patient slept 7-1/4 hours previous night. He did well in the morning, but by the evening, he was somewhat agitated, paranoid, questioning why he should take his medications because he felt he will be "in 3 days anyway." I processed this with him. He is quickly thoroughly denies any suicidal ideation, but just feels somewhat hopeless that no placement has been found for him. He did abscond from his prior placement and this is creating somewhat difficulty for the social service staff to arrange another placement, but they are persisting. REVIEW OF SYSTEMS: Ambulation impaired with walker. No CV, , pulmonary, eye, ENT system symptoms on review. MENTAL STATUS EXAM: Reasonably oriented. Speech has some latency, coherent. Abstraction fair, computation impaired, language function intact, attention span short. Mood and affect remain somewhat withdrawn at times, somewhat labile. LABORATORY DATA: Reviewed. IMPRESSION: Schizoaffective disorder, bipolar type, mixed with psychotic features, in partial remission; anxiety disorder, unspecified. PLAN: No change from initial note. CATHY EMERY MD DR: SARINA/nilda JOB#: [id number] / [id number]
[2018-07-11 15:45] VITALS: BP 109/82
[2018-07-11] MEDS: risperiDONE 2 MG TABLET. PO SCH (20:18)
[2018-07-11] MEDS: DIVALPROEX ER 500 MG TAB.ER.24H PO SCH (20:18)
--- NOTE | 2018-07-12 00:03 | PN ---
DATE: 07/10/2018 This is a late entry for 07/10/2018 covers elements not covered in my initial note. SUBJECTIVE: I met with the patient in the evening. The patient slept 6-3/4 hours previous night. Overall, per nursing report, the patient is doing better. He is somewhat isolative, dysphoric, feels depressed that he has not been accepted at the nursing facility. REVIEW OF SYSTEMS: Ambulation impaired with walker. No CV, , pulmonary, eye, ENT system symptoms on review. MENTAL STATUS EXAM: Reasonably oriented. Speech is coherent, has some latency. Abstraction fair, computation impaired, language function intact. Mood and affect showing improvement, somewhat withdrawn. No suicidal or homicidal ideation. LABORATORY DATA: Reviewed. IMPRESSION: Schizoaffective disorder, bipolar type, mixed with psychotic features, in partial remission. Rest unchanged. PLAN: No change from initial note. MAN Ty EMERY MD DR: SARINA/nilda JOB#: [id number] / [id number]
[2018-07-12] MEDS: LEVOTHYROXINE 50 MCG TABLET PO SCH (05:37)
[2018-07-12 05:48] VITALS: BP 109/75
[2018-07-12] MEDS: busPIRone 10 MG TABLET. PO SCH ×3 (07:50→19:57)
[2018-07-12] MEDS: OXYBUTYNIN CHLORIDE 5 MG TABLET PO SCH ×2 (07:51→19:54)
[2018-07-12] MEDS: TAMSULOSIN 0.4 MG CAP.ER.24H. PO SCH ×2 (07:51→08:06)
[2018-07-12] MEDS: clonazePAM 0.5 MG TABLET PO SCH ×2 (07:52→19:56)
[2018-07-12] MEDS: POTASSIUM CHLORIDE 20 MEQ TABLET.ER. PO SCH (07:52)
[2018-07-12] MEDS: GABAPENTIN 300 MG CAPSULE. PO SCH ×4 (07:53→19:55)
[2018-07-12] MEDS: MULTIVITAMIN with MINERAL TABLET. PO SCH (07:54)
[2018-07-12] MEDS: amLODIPine BESYLATE 10 MG TABLET PO SCH (07:54)
[2018-07-12] MEDS: NICOTINE 21MG PATCH. TD SCH ×2 (07:55→09:48)
--- NOTE | 2018-07-12 10:06 | PDOC ---
Exam Note: Nguyễn Note: Late entry for DOS 07/11/2018. Please also refer to the separate dictated note~ for this date of service dictated separately.~Patient seen individually. Discussed the patient with Nursing staff reviewed the chart.~Reviewed interim history and current functioning. Reviewed vital signs,~Labs/ Radiology~and current medications noted below. Continue current treatment with the changes noted in the dictated addendum note Assessment: Vital Signs: VS - Last 72 Hours, by Label Date Time Temp Pulse Resp B/P (MAP) Pulse Ox O2 Delivery O2 Flow Rate FiO2 07/12/18 07:54 62 109/75 07/12/18 05:48 98.0 62 20 109/75 (86) 96 07/11/18 15:45 97.0 86 18 109/82 (91) 99 07/11/18 08:03 71 115/79 07/11/18 05:48 97.9 71 20 115/79 (91) 98 07/10/18 15:49 99.1 84 20 132/81 (98) 96 Room Air 07/10/18 08:13 76 125/81 07/10/18 05:56 97.2 76 18 125/81 (96) 100 07/09/18 15:57 98.5 94 20 135/87 (103) 95 Room Air Vital Signs Date Time Temp Pulse Resp B/P (MAP) Pulse Ox O2 Delivery O2 Flow Rate FiO2 07/12/18 07:54 62 109/75 07/12/18 05:48 98.0 20 96 07/10/18 15:49 Room Air I&O Intake and Output 07/12/18 07:00 Intake Total 1680 ml Balance 1680 ml Intake Oral 1680 ml # Bowel Movements 1 Current Medications: Meds: Current Medications Acetaminophen (Tylenol) 650 mg PRN Q6HRS PRN PO PAIN / TEMP Last administered on 07/09/18at 22:06; Start 06/21/18 at 20:15 Clonazepam (KlonoPIN) 1 mg BID PO Last administered on 07/12/18at 07:52; Start 06/21/18 at 21:00 Gabapentin (Neurontin) 900 mg QID PO Last administered on 07/08/18at 16:58; Start 06/21/18 at 21:00; Stop 07/08/18 at 17:47; Status DC Al Hydroxide/Mg Hydroxide (Mylanta Plus Xs) 15 ml PRN AFTMEALHC PRN PO GI SYMPTOMS; Start 06/21/18 at 20:15 Magnesium Hydroxide (Milk Of Magnesia) 400 mg PRN DAILY PRN PO CONSTIPATION; Start 06/21/18 at 20:15 Multi-Ingredient Ointment (Analgesic [place]) 1 gerri PRN QID PRN TP MUSCLE PAIN; Start 06/21/18 at 20:15 Oxybutynin Chloride (Ditropan) 2.5 mg BID PO Last administered on 07/12/18at 07: 51; Start 06/21/18 at 21:00 Potassium Chloride (Klor-Con) 20 meq DAILY PO Last administered on 07/12/18 07 :52; Start 06/22/18 at 09:00 Tamsulosin HCl (Flomax) 0.8 mg DAILY PO Last administered on 07/11/18 08:02; Start 06/22/18 at 09:00 Amlodipine Besylate (Norvasc) 10 mg DAILY PO Last administered on 07/12/18at 07: 54; Start 06/22/18 at 09:00 Baclofen (Lioresal) 10 mg QID PO Last administered on 07/07/18at 19:36; Start 06/21/18 at 21:00; Stop 07/08/18 at 11:48; Status DC Bisacodyl (Dulcolax Supp) 10 mg PRN DAILY PRN [place] CONSTIPATION; Start 06/21/18 at 20:45 Buspirone HCl (Buspar) 10 mg TID PO Last administered on 07/12/18at 07:50; Start 06/21/18 at 21:00 Divalproex Sodium (Depakote Er) 1,500 mg HS PO Last administered on 07/11/18at 20:18; Start 06/21/18 at 21:00 Non-Formulary Medication (Gabapentin ) 800 mg QID PO ; Start 06/21/18 at 21:00 ; Status UNV Levothyroxine Sodium (Synthroid) 50 mcg DAILY06 PO Last administered on at 05:37; Start 06/22/18 at 06:00 Multivitamins/ Calcium (Thera-M Plus) 1 tab DAILY PO Last administered on at 07:54; Start 06/22/18 at 09:00 Olanzapine (ZyPREXA ZYDIS) 2.5 mg PRN Q2HR PRN PO PSYCHOSIS Last administered on 07/04/18at 16:58; Start 06/21/18 at 20:45 Olanzapine (ZyPREXA) 5 mg BID PO Last administered on 06/23/18at 08:47; Start 06/21/18 at 21:00; Stop 06/23/18 at 17:06; Status DC Risperidone (RisperDAL) 1.5 mg HS PO Last administered on 06/23/18at 19:45; Start 06/21/18 at 21:00; Stop 06/24/18 at 11:06; Status DC Trazodone HCl (Desyrel) 50 mg PRN QHS PRN PO INSOMNIA Last administered on 07/11 20:19; Start 06/21/18 at 21:00 Nicotine (Nicoderm Cq 7mg) 1 patch PRN DAILY PRN TD SMOKING CESSATION; Start 06/21/18 at 23:30; Stop 07/09/18 at 05:39; Status DC Vitamin D (Vitamin D3) 50,000 unit WEEKLY PO Last administered on 07/07/18at 07 :49; Start 06/23/18 at 16:30 Olanzapine (ZyPREXA) 5 mg DAILY PO Last administered on 06/25/18at 08:04; Start 06/24/18 at 09:00; Stop 06/26/18 at 00:00; Status DC Risperidone (RisperDAL) 1.75 mg HS PO Last administered on 07/06/18at 20:08; Start 06/24/18 at 21:00; Stop 07/07/18 at 12:40; Status DC Risperidone (RisperDAL) 2 mg HS PO Last administered on 07/11/18 20:18; Start 07/07/18 at 21:00 Gabapentin (Neurontin) 600 mg QID PO Last administered on 07/12/18 07:53; Start 07/08/18 at 21:00 Nicotine (Nicoderm Cq 21mg) 1 patch DAILY TD Last administered on 07/12/18 09: 48; Start 07/09/18 at 09:00 Active Scripts Active Reported Zyprexa (Olanzapine) 5 Mg Tablet 5 Mg PO BID NICODERM CQ 7mg (Nicotine) 1 Each Patch.td24 1 Patch TD PRN DAILY PRN Trazodone Hcl 50 Mg Tablet 50 Mg PO PRN QHS PRN Risperdal (Risperidone) 1 Mg Tablet 1.5 Mg PO HS Analgesic [place] (Methyl Salicylate/Menthol) 28 Gm Oint...g. 1 Gerri TP PRN QID PRN Milk Of Magnesia (Magnesium Hydroxide) 400 Mg/5 Ml Oral.susp 400 Mg PO PRN DAILY PRN Mag-Al Plus Xs Suspension (Mag Hydrox/Al Hydrox/Simeth) 30 Ml Oral.susp 15 Ml PO PRN AFTMEALHC PRN Buspirone Hcl 10 Mg Tablet 10 Mg PO TID Baclofen 10 Mg Tablet 10 Mg PO QID Gabapentin 100 Mg Capsule 100 Mg PO QID Gabapentin 800 Mg Tablet 800 Mg PO QID Levothyroxine Sodium 50 Mcg Tablet 50 Mcg PO DAILYAC Klonopin (Clonazepam) 0.5 Mg Tablet 1 Mg PO BID Norvasc (Amlodipine Besylate) 10 Mg Tablet 10 Mg PO DAILY Oxybutynin Chloride 5 Mg Tablet 2.5 Mg PO BID Depakote Er (Divalproex Sodium) 500 Mg Tab.er.24h 1,500 Mg PO HS Klor-Con M20 (Potassium Chloride) 20 Meq Tab.er.prt 20 Meq PO DAILY Cymbalta (Duloxetine Hcl) 60 Mg Capsule.dr 60 Mg PO DAILY Multivitamin with Iron Tablet (Multivitamin/Iron/Folic Acid) 1 Each Tablet 1 Tab PO DAILY Flomax (Tamsulosin Hcl) 0.4 Mg Cap.er.24h 0.8 Mg PO DAILY Olanzapine 5 Mg Tablet 2.5 Mg PO PRN Q2HR PRN MDD 10mg/ 24 hrs Remeron (Mirtazapine) 15 Mg Tablet 7.5 Mg PO HS Bisacodyl 10 Mg Supp.rect 10 Mg RC PRN DAILY PRN Tylenol (Acetaminophen) 325 Mg Tablet 650 Mg PO PRN Q6HRS PRN I have reviewed the current psychotropics carefully including drug interactions. Risk benefit ratio favors no change other than as noted in my dictated progress note. Diagnosis: Problems: (1) Anxiety disorder (2) Impulse control disorder (3) Schizophrenia, paranoid, chronic with acute exacerbation CATHY EMERY MD Jul 12, 2018 10:06
[2018-07-12 16:08] VITALS: BP 116/76
[2018-07-12 17:11] LABS: BASO % 0 % (0-3); EOS # 0.1 x10^3/uL (0.0-0.7); EOS % 1 % (0-3); HEMATOCRIT 41.6 % (39.0-53.0); HEMOGLOBIN 14.1 g/dL (13.0-17.5); LYMPH # 1.9 x10^3/uL (1.0-4.8); LYMPH % 30 % (24-48); MEAN CORPUSCULAR HEMOGLOBIN 30 pg (25-35); MEAN CORPUSCULAR HGB CONC 34 g/dL (31-37); MEAN CORPUSCULAR VOLUME 88 fL (79-100); MONO # 0.5 x10^3/uL (0.0-1.1); MONO % 9 % (0-9); NEUT # 3.8 x10^3uL (1.8-7.7); NEUT % 60 % (31-73); PLATELET COUNT 318 x10^3/uL (140-400); RED BLOOD COUNT 4.71 x10^6/uL (4.30-5.70); WHITE BLOOD COUNT 6.3 x10^3/uL (4.0-11.0)
[2018-07-12] MEDS: DIVALPROEX ER 500 MG TAB.ER.24H PO SCH (19:55)
[2018-07-12] MEDS: risperiDONE 2 MG TABLET. PO SCH (21:00)
--- NOTE | 2018-07-12 22:42 | PDOC ---
Exam Note: Nguyễn Note: Please also refer to the separate dictated note~for this date of service dictated separately.~Patient seen individually. Discussed the patient with Nursing staff reviewed the chart.~Reviewed interim history and current functioning. Reviewed vital signs,~Labs/ Radiology~and current medications noted below. Continue current treatment with the changes noted in the dictated addendum note Assessment: Vital Signs: Vital Signs Date Time Temp Pulse Resp B/P (MAP) Pulse Ox O2 Delivery O2 Flow Rate FiO2 07/12/18 16:08 98.4 81 20 116/76 (89) 96 07/10/18 15:49 Room Air I&O Intake and Output 07/12/18 07:00 Intake Total 1680 ml Balance 1680 ml Intake Oral 1680 ml # Bowel Movements 1 Labs: Laboratory Tests Test 07/12/18 17:00 White Blood Count 6.3 x10^3/uL (4.0-11.0) Red Blood Count 4.71 x10^6/uL (4.30-5.70) Hemoglobin 14.1 g/dL (13.0-17.5) Hematocrit 41.6 % (39.0-53.0) Mean Corpuscular Volume 88 fL (79-100) Mean Corpuscular Hemoglobin 30 pg (25-35) Mean Corpuscular Hemoglobin Concent 34 g/dL (31-37) Red Cell Distribution Width 13.0 % (11.5-14.5) Platelet Count 318 x10^3/uL (140-400) Neutrophils (%) (Auto) 60 % (31-73) Lymphocytes (%) (Auto) 30 % (24-48) Monocytes (%) (Auto) 9 % (0-9) Eosinophils (%) (Auto) 1 % (0-3) Basophils (%) (Auto) 0 % (0-3) Neutrophils # (Auto) 3.8 x10^3uL (1.8-7.7) Lymphocytes # (Auto) 1.9 x10^3/uL (1.0-4.8) Monocytes # (Auto) 0.5 x10^3/uL (0.0-1.1) Eosinophils # (Auto) 0.1 x10^3/uL (0.0-0.7) Basophils # (Auto) 0.0 x10^3/uL (0.0-0.2) Current Medications: Meds: Current Medications Acetaminophen (Tylenol) 650 mg PRN Q6HRS PRN PO PAIN / TEMP Last administered on 07/09/18at 22:06; Start 06/21/18 at 20:15 Clonazepam (KlonoPIN) 1 mg BID PO Last administered on 07/12/18 19:56; Start 06/21/18 at 21:00 Gabapentin (Neurontin) 900 mg QID PO Last administered on 07/08/18at 16:58; Start 06/21/18 at 21:00; Stop 07/08/18 at 17:47; Status DC Al Hydroxide/Mg Hydroxide (Mylanta Plus Xs) 15 ml PRN AFTMEALHC PRN PO GI SYMPTOMS; Start 06/21/18 at 20:15 Magnesium Hydroxide (Milk Of Magnesia) 400 mg PRN DAILY PRN PO CONSTIPATION; Start 06/21/18 at 20:15 Multi-Ingredient Ointment (Analgesic Laquey) 1 gerri PRN QID PRN TP MUSCLE PAIN; Start 06/21/18 at 20:15 Oxybutynin Chloride (Ditropan) 2.5 mg BID PO Last administered on 07/12/18 19: 54; Start 06/21/18 at 21:00 Potassium Chloride (Klor-Con) 20 meq DAILY PO Last administered on 07/12/18at 07 :52; Start 06/22/18 at 09:00 Tamsulosin HCl (Flomax) 0.8 mg DAILY PO Last administered on 07/11/18at 08:02; Start 06/22/18 at 09:00 Amlodipine Besylate (Norvasc) 10 mg DAILY PO Last administered on 07/12/18at 07: 54; Start 06/22/18 at 09:00 Baclofen (Lioresal) 10 mg QID PO Last administered on 07/07/18at 19:36; Start 06/21/18 at 21:00; Stop 07/08/18 at 11:48; Status DC Bisacodyl (Dulcolax Supp) 10 mg PRN DAILY PRN [place] CONSTIPATION; Start 06/21/18 at 20:45 Buspirone HCl (Buspar) 10 mg TID PO Last administered on 07/12/18 19:57; Start 06/21/18 at 21:00 Divalproex Sodium (Depakote Er) 1,500 mg HS PO Last administered on 07/12/18at 19:55; Start 06/21/18 at 21:00 Non-Formulary Medication (Gabapentin ) 800 mg QID PO ; Start 06/21/18 at 21:00 ; Status UNV Levothyroxine Sodium (Synthroid) 50 mcg DAILY06 PO Last administered on at 05:37; Start 06/22/18 at 06:00 Multivitamins/ Calcium (Thera-M Plus) 1 tab DAILY PO Last administered on at 07:54; Start 06/22/18 at 09:00 Olanzapine (ZyPREXA ZYDIS) 2.5 mg PRN Q2HR PRN PO PSYCHOSIS Last administered on 07/12/18at 10:17; Start 06/21/18 at 20:45 Olanzapine (ZyPREXA) 5 mg BID PO Last administered on 06/23/18at 08:47; Start 06/21/18 at 21:00; Stop 06/23/18 at 17:06; Status DC Risperidone (RisperDAL) 1.5 mg HS PO Last administered on 06/23/18at 19:45; Start 06/21/18 at 21:00; Stop 06/24/18 at 11:06; Status DC Trazodone HCl (Desyrel) 50 mg PRN QHS PRN PO INSOMNIA Last administered on 07/11at 20:19; Start 06/21/18 at 21:00 Nicotine (Nicoderm Cq 7mg) 1 patch PRN DAILY PRN TD SMOKING CESSATION; Start 06/21/18 at 23:30; Stop 07/09/18 at 05:39; Status DC Vitamin D (Vitamin D3) 50,000 unit WEEKLY PO Last administered on 07/07/18at 07 :49; Start 06/23/18 at 16:30 Olanzapine (ZyPREXA) 5 mg DAILY PO Last administered on 06/25/18at 08:04; Start 06/24/18 at 09:00; Stop 06/26/18 at 00:00; Status DC Risperidone (RisperDAL) 1.75 mg HS PO Last administered on 07/06/18at 20:08; Start 06/24/18 at 21:00; Stop 07/07/18 at 12:40; Status DC Risperidone (RisperDAL) 2 mg HS PO Last administered on 07/11/18at 20:18; Start 07/07/18 at 21:00 Gabapentin (Neurontin) 600 mg QID PO Last administered on 07/12/18at 19:55; Start 07/08/18 at 21:00 Nicotine (Nicoderm Cq 21mg) 1 patch DAILY TD Last administered on 07/12/18at 09: 48; Start 07/09/18 at 09:00 Clozapine (Clozaril) 25 mg DAILY PO ; Start 07/13/18 at 09:00 Active Scripts Active Reported Zyprexa (Olanzapine) 5 Mg Tablet 5 Mg PO BID NICODERM CQ 7mg (Nicotine) 1 Each Patch.td24 1 Patch TD PRN DAILY PRN Trazodone Hcl 50 Mg Tablet 50 Mg PO PRN QHS PRN Risperdal (Risperidone) 1 Mg Tablet 1.5 Mg PO HS Analgesic Laquey (Methyl Salicylate/Menthol) 28 Gm Oint...g. 1 Gerri TP PRN QID PRN Milk Of Magnesia (Magnesium Hydroxide) 400 Mg/5 Ml Oral.susp 400 Mg PO PRN DAILY PRN Mag-Al Plus Xs Suspension (Mag Hydrox/Al Hydrox/Simeth) 30 Ml Oral.susp 15 Ml PO PRN AFTMEALHC PRN Buspirone Hcl 10 Mg Tablet 10 Mg PO TID Baclofen 10 Mg Tablet 10 Mg PO QID Gabapentin 100 Mg Capsule 100 Mg PO QID Gabapentin 800 Mg Tablet 800 Mg PO QID Levothyroxine Sodium 50 Mcg Tablet 50 Mcg PO DAILYAC Klonopin (Clonazepam) 0.5 Mg Tablet 1 Mg PO BID Norvasc (Amlodipine Besylate) 10 Mg Tablet 10 Mg PO DAILY Oxybutynin Chloride 5 Mg Tablet 2.5 Mg PO BID Depakote Er (Divalproex Sodium) 500 Mg Tab.er.24h 1,500 Mg PO HS Klor-Con M20 (Potassium Chloride) 20 Meq Tab.er.prt 20 Meq PO DAILY Cymbalta (Duloxetine Hcl) 60 Mg Capsule.dr 60 Mg PO DAILY Multivitamin with Iron Tablet (Multivitamin/Iron/Folic Acid) 1 Each Tablet 1 Tab PO DAILY Flomax (Tamsulosin Hcl) 0.4 Mg Cap.er.24h 0.8 Mg PO DAILY Olanzapine 5 Mg Tablet 2.5 Mg PO PRN Q2HR PRN MDD 10mg/ 24 hrs Remeron (Mirtazapine) 15 Mg Tablet 7.5 Mg PO HS Bisacodyl 10 Mg Supp.rect 10 Mg RC PRN DAILY PRN Tylenol (Acetaminophen) 325 Mg Tablet 650 Mg PO PRN Q6HRS PRN I have reviewed the current psychotropics carefully including drug interactions. Risk benefit ratio favors no change other than as noted in my dictated progress note. Diagnosis: Problems: (1) Anxiety disorder (2) Impulse control disorder (3) Schizophrenia, paranoid, chronic with acute exacerbation CATHY EMERY MD Jul 12, 2018 22:42
--- NOTE | 2018-07-12 23:20 | PN ---
DATE: 07/11/2018 PSYCHIATRIC PROGRESS NOTE This late entry 07/11/2018, covers elements not covered in my initial note. SUBJECTIVE: I met with the patient in the evening. The patient slept 3 hours previous night. He was up, but around 11:00 p.m. previous night, talking somewhat bizarre about "Noe is here. Noe told me he can leave." He was redirectable however. He seems to get somewhat paranoid, but so far, still manageable. REVIEW OF SYSTEMS: Ambulation impaired with walker. No CV, , pulmonary, eye, ENT system symptoms on review. MENTAL STATUS EXAM: Reasonably oriented. Speech has some latency, coherent. Abstraction fair, computation impaired, language function intact, attention span short. Mood and affect, somewhat anxious, at times labile. LABORATORY DATA: Reviewed. IMPRESSION: Unchanged from initial note, schizoaffective disorder, bipolar type, mixed with psychotic features; anxiety disorder, unspecified. PLAN: No change from initial note. May consider Clozaril as an alternative to Risperdal, but we will reassess. MAN Ty EMERY MD DR: SARINA/nilda JOB#: [id number] / [id number]
[2018-07-13] MEDS: LEVOTHYROXINE 50 MCG TABLET PO SCH (05:09)
[2018-07-13 06:00] VITALS: BP 113/80
[2018-07-13] MEDS: GABAPENTIN 300 MG CAPSULE. PO SCH ×4 (08:22→19:20)
[2018-07-13] MEDS: OXYBUTYNIN CHLORIDE 5 MG TABLET PO SCH ×2 (08:22→19:20)
[2018-07-13] MEDS: amLODIPine BESYLATE 10 MG TABLET PO SCH (08:23)
[2018-07-13] MEDS: busPIRone 10 MG TABLET. PO SCH ×3 (08:23→19:19)
[2018-07-13] MEDS: MULTIVITAMIN with MINERAL TABLET. PO SCH (08:23)
[2018-07-13] MEDS: TAMSULOSIN 0.4 MG CAP.ER.24H. PO SCH (08:23)
[2018-07-13] MEDS: POTASSIUM CHLORIDE 20 MEQ TABLET.ER. PO SCH (08:23)
[2018-07-13] MEDS: cloZAPine 25 MG TABLET PO SCH (08:26)
[2018-07-13] MEDS: clonazePAM 0.5 MG TABLET PO SCH ×2 (08:26→19:21)
[2018-07-13] MEDS: NICOTINE 21MG PATCH. TD SCH (09:13)
[2018-07-13 16:21] VITALS: BP 116/79
[2018-07-13] MEDS: risperiDONE 2 MG TABLET. PO SCH (19:20)
[2018-07-13] MEDS: DIVALPROEX ER 500 MG TAB.ER.24H PO SCH (19:20)
--- NOTE | 2018-07-13 22:41 | PDOC ---
Exam Note: Nguyễn Note: Please also refer to the separate dictated note~for this date of service dictated separately.~Patient seen individually. Discussed the patient with Nursing staff reviewed the chart.~Reviewed interim history and current functioning. Reviewed vital signs,~Labs/ Radiology~and current medications noted below. Continue current treatment with the changes noted in the dictated addendum note Assessment: Vital Signs: Vital Signs Date Time Temp Pulse Resp B/P (MAP) Pulse Ox O2 Delivery O2 Flow Rate FiO2 07/13/18 16:21 98.3 83 20 116/79 (91) 95 Room Air I&O Intake and Output 07/13/18 07:00 Intake Total 1200 ml Balance 1200 ml Intake Oral 1200 ml Current Medications: Meds: Current Medications Acetaminophen (Tylenol) 650 mg PRN Q6HRS PRN PO PAIN / TEMP Last administered on 07/09/18at 22:06; Start 06/21/18 at 20:15 Clonazepam (KlonoPIN) 1 mg BID PO Last administered on 07/13/18at 19:21; Start 06/21/18 at 21:00 Gabapentin (Neurontin) 900 mg QID PO Last administered on 07/08/18at 16:58; Start 06/21/18 at 21:00; Stop 07/08/18 at 17:47; Status DC Al Hydroxide/Mg Hydroxide (Mylanta Plus Xs) 15 ml PRN AFTMEALHC PRN PO GI SYMPTOMS; Start 06/21/18 at 20:15 Magnesium Hydroxide (Milk Of Magnesia) 400 mg PRN DAILY PRN PO CONSTIPATION; Start 06/21/18 at 20:15 Multi-Ingredient Ointment (Analgesic Frederick) 1 gerri PRN QID PRN TP MUSCLE PAIN; Start 06/21/18 at 20:15 Oxybutynin Chloride (Ditropan) 2.5 mg BID PO Last administered on 07/13/18at 19: 20; Start 06/21/18 at 21:00 Potassium Chloride (Klor-Con) 20 meq DAILY PO Last administered on 07/13/18at 08 :23; Start 06/22/18 at 09:00 Tamsulosin HCl (Flomax) 0.8 mg DAILY PO Last administered on 07/13/18at 08:23; Start 06/22/18 at 09:00 Amlodipine Besylate (Norvasc) 10 mg DAILY PO Last administered on 07/13/18 08: 23; Start 06/22/18 at 09:00 Baclofen (Lioresal) 10 mg QID PO Last administered on 07/07/18at 19:36; Start 06/21/18 at 21:00; Stop 07/08/18 at 11:48; Status DC Bisacodyl (Dulcolax Supp) 10 mg PRN DAILY PRN [place] CONSTIPATION; Start 06/21/18 at 20:45 Buspirone HCl (Buspar) 10 mg TID PO Last administered on 07/13/18 19:19; Start 06/21/18 at 21:00 Divalproex Sodium (Depakote Er) 1,500 mg HS PO Last administered on 07/13/18 19:20; Start 06/21/18 at 21:00 Non-Formulary Medication (Gabapentin ) 800 mg QID PO ; Start 06/21/18 at 21:00 ; Status UNV Levothyroxine Sodium (Synthroid) 50 mcg DAILY06 PO Last administered on 05:09; Start 06/22/18 at 06:00 Multivitamins/ Calcium (Thera-M Plus) 1 tab DAILY PO Last administered on 08:23; Start 06/22/18 at 09:00 Olanzapine (ZyPREXA ZYDIS) 2.5 mg PRN Q2HR PRN PO PSYCHOSIS Last administered on 07/12/18 10:17; Start 06/21/18 at 20:45 Olanzapine (ZyPREXA) 5 mg BID PO Last administered on 06/23/18at 08:47; Start 06/21/18 at 21:00; Stop 06/23/18 at 17:06; Status DC Risperidone (RisperDAL) 1.5 mg HS PO Last administered on 06/23/18 19:45; Start 06/21/18 at 21:00; Stop 06/24/18 at 11:06; Status DC Trazodone HCl (Desyrel) 50 mg PRN QHS PRN PO INSOMNIA Last administered on 07/11 20:19; Start 06/21/18 at 21:00 Nicotine (Nicoderm Cq 7mg) 1 patch PRN DAILY PRN TD SMOKING CESSATION; Start 06/21/18 at 23:30; Stop 07/09/18 at 05:39; Status DC Vitamin D (Vitamin D3) 50,000 unit WEEKLY PO Last administered on 07/07/18at 07 :49; Start 06/23/18 at 16:30 Olanzapine (ZyPREXA) 5 mg DAILY PO Last administered on 06/25/18at 08:04; Start 06/24/18 at 09:00; Stop 06/26/18 at 00:00; Status DC Risperidone (RisperDAL) 1.75 mg HS PO Last administered on 07/06/18at 20:08; Start 06/24/18 at 21:00; Stop 07/07/18 at 12:40; Status DC Risperidone (RisperDAL) 2 mg HS PO Last administered on 07/13/18at 19:20; Start 07/07/18 at 21:00 Gabapentin (Neurontin) 600 mg QID PO Last administered on 07/13/18at 19:20; Start 07/08/18 at 21:00 Nicotine (Nicoderm Cq 21mg) 1 patch DAILY TD Last administered on 07/13/18at 09: 13; Start 07/09/18 at 09:00 Clozapine (Clozaril) 25 mg DAILY PO Last administered on 07/13/18at 08:26; Start 07/13/18 at 09:00 Active Scripts Active Reported Zyprexa (Olanzapine) 5 Mg Tablet 5 Mg PO BID NICODERM CQ 7mg (Nicotine) 1 Each Patch.td24 1 Patch TD PRN DAILY PRN Trazodone Hcl 50 Mg Tablet 50 Mg PO PRN QHS PRN Risperdal (Risperidone) 1 Mg Tablet 1.5 Mg PO HS Analgesic Frederick (Methyl Salicylate/Menthol) 28 Gm Oint...g. 1 Gerri TP PRN QID PRN Milk Of Magnesia (Magnesium Hydroxide) 400 Mg/5 Ml Oral.susp 400 Mg PO PRN DAILY PRN Mag-Al Plus Xs Suspension (Mag Hydrox/Al Hydrox/Simeth) 30 Ml Oral.susp 15 Ml PO PRN AFTMEALHC PRN Buspirone Hcl 10 Mg Tablet 10 Mg PO TID Baclofen 10 Mg Tablet 10 Mg PO QID Gabapentin 100 Mg Capsule 100 Mg PO QID Gabapentin 800 Mg Tablet 800 Mg PO QID Levothyroxine Sodium 50 Mcg Tablet 50 Mcg PO DAILYAC Klonopin (Clonazepam) 0.5 Mg Tablet 1 Mg PO BID Norvasc (Amlodipine Besylate) 10 Mg Tablet 10 Mg PO DAILY Oxybutynin Chloride 5 Mg Tablet 2.5 Mg PO BID Depakote Er (Divalproex Sodium) 500 Mg Tab.er.24h 1,500 Mg PO HS Klor-Con M20 (Potassium Chloride) 20 Meq Tab.er.prt 20 Meq PO DAILY Cymbalta (Duloxetine Hcl) 60 Mg Capsule.dr 60 Mg PO DAILY Multivitamin with Iron Tablet (Multivitamin/Iron/Folic Acid) 1 Each Tablet 1 Tab PO DAILY Flomax (Tamsulosin Hcl) 0.4 Mg Cap.er.24h 0.8 Mg PO DAILY Olanzapine 5 Mg Tablet 2.5 Mg PO PRN Q2HR PRN MDD 10mg/ 24 hrs Remeron (Mirtazapine) 15 Mg Tablet 7.5 Mg PO HS Bisacodyl 10 Mg Supp.rect 10 Mg RC PRN DAILY PRN Tylenol (Acetaminophen) 325 Mg Tablet 650 Mg PO PRN Q6HRS PRN I have reviewed the current psychotropics carefully including drug interactions. Risk benefit ratio favors no change other than as noted in my dictated progress note. Diagnosis: Problems: (1) Anxiety disorder (2) Impulse control disorder (3) Schizophrenia, paranoid, chronic with acute exacerbation CATHY EMERY MD Jul 13, 2018 22:40
--- NOTE | 2018-07-13 22:56 | PN ---
DATE: 07/12/2018 PSYCHIATRIC PROGRESS NOTE This late entry 07/12/2018 covers elements not covered in my initial note. SUBJECTIVE: I met with the patient in the evening. Per nursing report, the patient slept 6-1/4 hours previous night. He did well previous night, but then he had his pants wet and was demeaning and somewhat derogatory in his comments to nursing staff "you are puffing cigarettes, roaming around, get along and do your jobs." There is certainly no smoking by anyone on the unit. Per nursing report, the patient appears somewhat paranoid. Continues to be withdrawn at times, other times with some mood lability. REVIEW OF SYSTEMS: Ambulation impaired with walker. No CV, , pulmonary, eye, ENT system symptoms on review. MENTAL STATUS EXAM: Oriented to himself and situation. Speech is coherent, abstraction fair, computation impaired, language function intact. Attention span short. He appears somewhat paranoid at times. No suicidal or homicidal ideation. LABORATORY DATA: Reviewed. IMPRESSION: Schizoaffective disorder, bipolar type, mixed with psychotic features; anxiety disorder, unspecified. PLAN: The patient seems to have failed treatment on his current psychotropics. He has extremely long history of schizoaffective disorder with significant psychotic symptoms. He has absconded from facilities raising significant risk to himself. Given all of this, we will go ahead and start him on Clozaril 25 mg p.o. at bedtime. Check CBC, absolute neutrophil count every week and then gradually taper the Risperdal. Maintain Klonopin, BuSpar, trazodone, along with Depakote at current dosage, level therapeutic at 55. MAN Ty EMERY MD DR: SARINA/nilda JOB#: [id number] / [id number]
[2018-07-14] MEDS: LEVOTHYROXINE 50 MCG TABLET PO SCH (05:46)
[2018-07-14 06:16] VITALS: BP 134/91
[2018-07-14] MEDS: cloZAPine 25 MG TABLET PO SCH (08:43)
[2018-07-14] MEDS: CHOLECALCIFEROL (VITAMIN D3) 50,000 UNIT CAPSULE PO SCH (08:43)
[2018-07-14] MEDS: amLODIPine BESYLATE 10 MG TABLET PO SCH (08:43)
[2018-07-14] MEDS: TAMSULOSIN 0.4 MG CAP.ER.24H. PO SCH ×2 (08:44→09:14)
[2018-07-14] MEDS: GABAPENTIN 300 MG CAPSULE. PO SCH ×5 (08:44→21:00)
[2018-07-14] MEDS: busPIRone 10 MG TABLET. PO SCH ×4 (08:44→21:00)
[2018-07-14] MEDS: POTASSIUM CHLORIDE 20 MEQ TABLET.ER. PO SCH (08:44)
[2018-07-14] MEDS: OXYBUTYNIN CHLORIDE 5 MG TABLET PO SCH ×3 (08:44→21:00)
[2018-07-14] MEDS: MULTIVITAMIN with MINERAL TABLET. PO SCH (08:44)
[2018-07-14] MEDS: clonazePAM 0.5 MG TABLET PO SCH ×3 (08:46→21:00)
[2018-07-14] MEDS: NICOTINE 21MG PATCH. TD SCH (08:46)
[2018-07-14 16:16] VITALS: BP 109/75
[2018-07-14] MEDS: DIVALPROEX ER 500 MG TAB.ER.24H PO SCH ×2 (19:27→21:00)
[2018-07-14] MEDS: risperiDONE 2 MG TABLET. PO SCH ×2 (19:28→21:00)
--- NOTE | 2018-07-14 22:42 | PDOC ---
Exam Note: Nguyễn Note: Please also refer to the separate dictated note~for this date of service dictated separately.~Patient seen individually. Discussed the patient with Nursing staff reviewed the chart.~Reviewed interim history and current functioning. Reviewed vital signs,~Labs/ Radiology~and current medications noted below. Continue current treatment with the changes noted in the dictated addendum note Assessment: Vital Signs: Vital Signs Date Time Temp Pulse Resp B/P (MAP) Pulse Ox O2 Delivery O2 Flow Rate FiO2 07/14/18 16:16 97.7 80 20 109/75 (86) 97 07/13/18 16:21 Room Air I&O Intake and Output 07/14/18 07:00 Intake Total 1440 ml Balance 1440 ml Intake Oral 1440 ml Current Medications: Meds: Current Medications Acetaminophen (Tylenol) 650 mg PRN Q6HRS PRN PO PAIN / TEMP Last administered on 07/09/18at 22:06; Start 06/21/18 at 20:15 Clonazepam (KlonoPIN) 1 mg BID PO Last administered on 07/14/18at 19:28; Start 06/21/18 at 21:00 Gabapentin (Neurontin) 900 mg QID PO Last administered on 07/08/18at 16:58; Start 06/21/18 at 21:00; Stop 07/08/18 at 17:47; Status DC Al Hydroxide/Mg Hydroxide (Mylanta Plus Xs) 15 ml PRN AFTMEALHC PRN PO GI SYMPTOMS; Start 06/21/18 at 20:15 Magnesium Hydroxide (Milk Of Magnesia) 400 mg PRN DAILY PRN PO CONSTIPATION; Start 06/21/18 at 20:15 Multi-Ingredient Ointment (Analgesic Moffit) 1 gerri PRN QID PRN TP MUSCLE PAIN; Start 06/21/18 at 20:15 Oxybutynin Chloride (Ditropan) 2.5 mg BID PO Last administered on 07/14/18 19: 27; Start 06/21/18 at 21:00 Potassium Chloride (Klor-Con) 20 meq DAILY PO Last administered on 07/14/18at 08 :44; Start 06/22/18 at 09:00 Tamsulosin HCl (Flomax) 0.8 mg DAILY PO Last administered on 07/13/18at 08:23; Start 06/22/18 at 09:00 Amlodipine Besylate (Norvasc) 10 mg DAILY PO Last administered on 07/14/18 08: 43; Start 06/22/18 at 09:00 Baclofen (Lioresal) 10 mg QID PO Last administered on 07/07/18at 19:36; Start 06/21/18 at 21:00; Stop 07/08/18 at 11:48; Status DC Bisacodyl (Dulcolax Supp) 10 mg PRN DAILY PRN ME CONSTIPATION; Start 06/21/18 at 20:45 Buspirone HCl (Buspar) 10 mg TID PO Last administered on 07/14/18 19:27; Start 06/21/18 at 21:00 Divalproex Sodium (Depakote Er) 1,500 mg HS PO Last administered on 07/14/18 19:27; Start 06/21/18 at 21:00 Non-Formulary Medication (Gabapentin ) 800 mg QID PO ; Start 06/21/18 at 21:00 ; Status UNV Levothyroxine Sodium (Synthroid) 50 mcg DAILY06 PO Last administered on 05:46; Start 06/22/18 at 06:00 Multivitamins/ Calcium (Thera-M Plus) 1 tab DAILY PO Last administered on 08:44; Start 06/22/18 at 09:00 Olanzapine (ZyPREXA ZYDIS) 2.5 mg PRN Q2HR PRN PO PSYCHOSIS Last administered on 07/12/18 10:17; Start 06/21/18 at 20:45 Olanzapine (ZyPREXA) 5 mg BID PO Last administered on 06/23/18at 08:47; Start 06/21/18 at 21:00; Stop 06/23/18 at 17:06; Status DC Risperidone (RisperDAL) 1.5 mg HS PO Last administered on 06/23/18 19:45; Start 06/21/18 at 21:00; Stop 06/24/18 at 11:06; Status DC Trazodone HCl (Desyrel) 50 mg PRN QHS PRN PO INSOMNIA Last administered on 07/11 20:19; Start 06/21/18 at 21:00 Nicotine (Nicoderm Cq 7mg) 1 patch PRN DAILY PRN TD SMOKING CESSATION; Start 06/21/18 at 23:30; Stop 07/09/18 at 05:39; Status DC Vitamin D (Vitamin D3) 50,000 unit WEEKLY PO Last administered on 07/14/18at 08: 43; Start 06/23/18 at 16:30 Olanzapine (ZyPREXA) 5 mg DAILY PO Last administered on 06/25/18at 08:04; Start 06/24/18 at 09:00; Stop 06/26/18 at 00:00; Status DC Risperidone (RisperDAL) 1.75 mg HS PO Last administered on 07/06/18at 20:08; Start 06/24/18 at 21:00; Stop 07/07/18 at 12:40; Status DC Risperidone (RisperDAL) 2 mg HS PO Last administered on 07/14/18 19:28; Start 07/07/18 at 21:00 Gabapentin (Neurontin) 600 mg QID PO Last administered on 07/14/18 19:28; Start 07/08/18 at 21:00 Nicotine (Nicoderm Cq 21mg) 1 patch DAILY TD Last administered on 07/14/18at 08: 46; Start 07/09/18 at 09:00 Clozapine (Clozaril) 25 mg DAILY PO Last administered on 07/14/18at 08:43; Start 07/13/18 at 09:00 Active Scripts Active Reported Zyprexa (Olanzapine) 5 Mg Tablet 5 Mg PO BID NICODERM CQ 7mg (Nicotine) 1 Each Patch.td24 1 Patch TD PRN DAILY PRN Trazodone Hcl 50 Mg Tablet 50 Mg PO PRN QHS PRN Risperdal (Risperidone) 1 Mg Tablet 1.5 Mg PO HS Analgesic Moffit (Methyl Salicylate/Menthol) 28 Gm Oint...g. 1 Gerri TP PRN QID PRN Milk Of Magnesia (Magnesium Hydroxide) 400 Mg/5 Ml Oral.susp 400 Mg PO PRN DAILY PRN Mag-Al Plus Xs Suspension (Mag Hydrox/Al Hydrox/Simeth) 30 Ml Oral.susp 15 Ml PO PRN AFTMEALHC PRN Buspirone Hcl 10 Mg Tablet 10 Mg PO TID Baclofen 10 Mg Tablet 10 Mg PO QID Gabapentin 100 Mg Capsule 100 Mg PO QID Gabapentin 800 Mg Tablet 800 Mg PO QID Levothyroxine Sodium 50 Mcg Tablet 50 Mcg PO DAILYAC Klonopin (Clonazepam) 0.5 Mg Tablet 1 Mg PO BID Norvasc (Amlodipine Besylate) 10 Mg Tablet 10 Mg PO DAILY Oxybutynin Chloride 5 Mg Tablet 2.5 Mg PO BID Depakote Er (Divalproex Sodium) 500 Mg Tab.er.24h 1,500 Mg PO HS Klor-Con M20 (Potassium Chloride) 20 Meq Tab.er.prt 20 Meq PO DAILY Cymbalta (Duloxetine Hcl) 60 Mg Capsule.dr 60 Mg PO DAILY Multivitamin with Iron Tablet (Multivitamin/Iron/Folic Acid) 1 Each Tablet 1 Tab PO DAILY Flomax (Tamsulosin Hcl) 0.4 Mg Cap.er.24h 0.8 Mg PO DAILY Olanzapine 5 Mg Tablet 2.5 Mg PO PRN Q2HR PRN MDD 10mg/ 24 hrs Remeron (Mirtazapine) 15 Mg Tablet 7.5 Mg PO HS Bisacodyl 10 Mg Supp.rect 10 Mg RC PRN DAILY PRN Tylenol (Acetaminophen) 325 Mg Tablet 650 Mg PO PRN Q6HRS PRN I have reviewed the current psychotropics carefully including drug interactions. Risk benefit ratio favors no change other than as noted in my dictated progress note. Diagnosis: Problems: (1) Anxiety disorder (2) Impulse control disorder (3) Schizophrenia, paranoid, chronic with acute exacerbation CATHY EMERY MD Jul 14, 2018 22:42
--- NOTE | 2018-07-15 02:57 | PN ---
DATE: 07/13/2018 PSYCHIATRIC PROGRESS NOTE This late entry 07/13/2018 covers elements not covered in my initial note. SUBJECTIVE: I met with the patient in the evening. The patient slept 6 hours previous night. He has been somewhat withdrawn, but previous night he was calm, somewhat isolated during the day on 07/13/2018, but less psychotic. REVIEW OF SYSTEMS: Ambulation impaired with walker. No CV, , pulmonary, eye, ENT system symptoms on review. MENTAL STATUS EXAM: Oriented reasonably. Speech is coherent. He is very pleasant, animated, patting me on the back, which is typical of him. Abstraction fair, computation impaired, language function intact. Mood and affect is somewhat withdrawn at times, less psychotic. LABORATORY DATA: Reviewed. IMPRESSION: Schizoaffective disorder, bipolar type, mixed with psychotic features, in partial remission. Rest unchanged. PLAN: No change from initial note. Continue to gradually increase the Clozaril depending on the labs. CATHY EMERY MD DR: SARINA/nilda JOB#: [id number] / [id number]
[2018-07-15] MEDS: LEVOTHYROXINE 50 MCG TABLET PO SCH (05:22)
[2018-07-15 06:14] VITALS: BP 123/85
[2018-07-15] MEDS: NICOTINE 21MG PATCH. TD SCH (08:00)
[2018-07-15] MEDS: amLODIPine BESYLATE 10 MG TABLET PO SCH (08:01)
[2018-07-15] MEDS: OXYBUTYNIN CHLORIDE 5 MG TABLET PO SCH ×2 (08:01→20:10)
[2018-07-15] MEDS: TAMSULOSIN 0.4 MG CAP.ER.24H. PO SCH (08:01)
[2018-07-15] MEDS: clonazePAM 0.5 MG TABLET PO SCH ×2 (08:01→20:11)
[2018-07-15] MEDS: cloZAPine 25 MG TABLET PO SCH (08:02)
[2018-07-15] MEDS: GABAPENTIN 300 MG CAPSULE. PO SCH ×4 (08:02→20:10)
[2018-07-15] MEDS: POTASSIUM CHLORIDE 20 MEQ TABLET.ER. PO SCH (08:02)
[2018-07-15] MEDS: MULTIVITAMIN with MINERAL TABLET. PO SCH (08:02)
[2018-07-15] MEDS: busPIRone 10 MG TABLET. PO SCH ×3 (08:02→20:11)
[2018-07-15 16:02] VITALS: BP 107/71
[2018-07-15] MEDS: risperiDONE 2 MG TABLET. PO SCH (20:10)
[2018-07-15] MEDS: DIVALPROEX ER 500 MG TAB.ER.24H PO SCH (20:11)
[2018-07-15 22:21] LABS: BILIRUBIN,URINE NEG (NEG); CLARITY,URINE CLEAR; COLOR,URINE YELLOW; GLUCOSE,URINE NEG (NEG)
[2018-07-15 22:22] LABS: BACTERIA,URINE 0 /HPF (0-FEW); NITRITE,URINE NEG (NEG); RBC,URINE RARE /HPF (0-2); UROBILINOGEN,URINE 0.2 mg/dL (0.2 mg/dL); WBC,URINE RARE /HPF (0-4)
--- NOTE | 2018-07-15 22:44 | PDOC ---
Exam Note: Nguyễn Note: Please also refer to the separate dictated note~for this date of service dictated separately.~Patient seen individually. Discussed the patient with Nursing staff reviewed the chart.~Reviewed interim history and current functioning. Reviewed vital signs,~Labs/ Radiology~and current medications noted below. Continue current treatment with the changes noted in the dictated addendum note Assessment: Vital Signs: Vital Signs Date Time Temp Pulse Resp B/P (MAP) Pulse Ox O2 Delivery O2 Flow Rate FiO2 07/15/18 16:02 98.1 79 20 107/71 (83) 96 Room Air I&O Intake and Output 07/15/18 07:00 Intake Total 1680 ml Balance 1680 ml Intake Oral 1680 ml Labs: Laboratory Tests Test 07/15/18 20:00 Urine Collection Type Unknown Urine Color Yellow Urine Clarity Clear Urine pH 8.0 Urine Specific [place] 1.015 Urine Protein Neg (NEG-TRACE) Urine Glucose (UA) Neg mg/dL (NEG) Urine Ketones (Stick) Neg mg/dL (NEG) Urine Blood Neg (NEG) Urine Nitrite Neg (NEG) Urine Bilirubin Neg (NEG) Urine Urobilinogen Dipstick 0.2 mg/dL (0.2 mg/dL) Urine Leukocyte Esterase Neg (NEG) Urine RBC Rare /HPF (0-2) Urine WBC Rare /HPF (0-4) Urine Squamous Epithelial Cells None /LPF Urine Bacteria 0 /HPF (0-FEW) Current Medications: Meds: Current Medications Acetaminophen (Tylenol) 650 mg PRN Q6HRS PRN PO PAIN / TEMP Last administered on 07/09/18at 22:06; Start 06/21/18 at 20:15 Clonazepam (KlonoPIN) 1 mg BID PO Last administered on 07/15/18at 20:11; Start 06/21/18 at 21:00 Gabapentin (Neurontin) 900 mg QID PO Last administered on 07/08/18at 16:58; Start 06/21/18 at 21:00; Stop 07/08/18 at 17:47; Status DC Al Hydroxide/Mg Hydroxide (Mylanta Plus Xs) 15 ml PRN AFTMEALHC PRN PO GI SYMPTOMS; Start 06/21/18 at 20:15 Magnesium Hydroxide (Milk Of Magnesia) 400 mg PRN DAILY PRN PO CONSTIPATION; Start 06/21/18 at 20:15 Multi-Ingredient Ointment (Analgesic [place]) 1 gerri PRN QID PRN TP MUSCLE PAIN; Start 06/21/18 at 20:15 Oxybutynin Chloride (Ditropan) 2.5 mg BID PO Last administered on 07/15/18at 20: 10; Start 06/21/18 at 21:00 Potassium Chloride (Klor-Con) 20 meq DAILY PO Last administered on 07/15/18 08 :02; Start 06/22/18 at 09:00 Tamsulosin HCl (Flomax) 0.8 mg DAILY PO Last administered on 07/15/18 08:01; Start 06/22/18 at 09:00 Amlodipine Besylate (Norvasc) 10 mg DAILY PO Last administered on 07/15/18 08: 01; Start 06/22/18 at 09:00 Baclofen (Lioresal) 10 mg QID PO Last administered on 07/07/18at 19:36; Start 06/21/18 at 21:00; Stop 07/08/18 at 11:48; Status DC Bisacodyl (Dulcolax Supp) 10 mg PRN DAILY PRN [place] CONSTIPATION; Start 06/21/18 at 20:45 Buspirone HCl (Buspar) 10 mg TID PO Last administered on 07/15/18 20:11; Start 06/21/18 at 21:00 Divalproex Sodium (Depakote Er) 1,500 mg HS PO Last administered on 07/15/18 20:11; Start 06/21/18 at 21:00 Non-Formulary Medication (Gabapentin ) 800 mg QID PO ; Start 06/21/18 at 21:00 ; Status UNV Levothyroxine Sodium (Synthroid) 50 mcg DAILY06 PO Last administered on 05:22; Start 06/22/18 at 06:00 Multivitamins/ Calcium (Thera-M Plus) 1 tab DAILY PO Last administered on 08:02; Start 06/22/18 at 09:00 Olanzapine (ZyPREXA ZYDIS) 2.5 mg PRN Q2HR PRN PO PSYCHOSIS Last administered on 07/12/18 10:17; Start 06/21/18 at 20:45 Olanzapine (ZyPREXA) 5 mg BID PO Last administered on 11/14/18at 08:47; Start 06/21/18 at 21:00; Stop 06/23/18 at 17:06; Status DC Risperidone (RisperDAL) 1.5 mg HS PO Last administered on 06/23/18at 19:45; Start 06/21/18 at 21:00; Stop 06/24/18 at 11:06; Status DC Trazodone HCl (Desyrel) 50 mg PRN QHS PRN PO INSOMNIA Last administered on 07/11 20:19; Start 06/21/18 at 21:00 Nicotine (Nicoderm Cq 7mg) 1 patch PRN DAILY PRN TD SMOKING CESSATION; Start 06/21/18 at 23:30; Stop 07/09/18 at 05:39; Status DC Vitamin D (Vitamin D3) 50,000 unit WEEKLY PO Last administered on 07/14/18 08: 43; Start 06/23/18 at 16:30 Olanzapine (ZyPREXA) 5 mg DAILY PO Last administered on 06/25/18at 08:04; Start 06/24/18 at 09:00; Stop 06/26/18 at 00:00; Status DC Risperidone (RisperDAL) 1.75 mg HS PO Last administered on 07/06/18 20:08; Start 06/24/18 at 21:00; Stop 07/07/18 at 12:40; Status DC Risperidone (RisperDAL) 2 mg HS PO Last administered on 07/15/18 20:10; Start 07/07/18 at 21:00 Gabapentin (Neurontin) 600 mg QID PO Last administered on 07/15/18at 20:10; Start 07/08/18 at 21:00 Nicotine (Nicoderm Cq 21mg) 1 patch DAILY TD Last administered on 07/15/18 08: 00; Start 07/09/18 at 09:00 Clozapine (Clozaril) 25 mg DAILY PO Last administered on 07/15/18at 08:02; Start 07/13/18 at 09:00 Active Scripts Active Reported Zyprexa (Olanzapine) 5 Mg Tablet 5 Mg PO BID NICODERM CQ 7mg (Nicotine) 1 Each Patch.td24 1 Patch TD PRN DAILY PRN Trazodone Hcl 50 Mg Tablet 50 Mg PO PRN QHS PRN Risperdal (Risperidone) 1 Mg Tablet 1.5 Mg PO HS Analgesic [place] (Methyl Salicylate/Menthol) 28 Gm Oint...g. 1 Gerri TP PRN QID PRN Milk Of Magnesia (Magnesium Hydroxide) 400 Mg/5 Ml Oral.susp 400 Mg PO PRN DAILY PRN Mag-Al Plus Xs Suspension (Mag Hydrox/Al Hydrox/Simeth) 30 Ml Oral.susp 15 Ml PO PRN AFTMEALHC PRN Buspirone Hcl 10 Mg Tablet 10 Mg PO TID Baclofen 10 Mg Tablet 10 Mg PO QID Gabapentin 100 Mg Capsule 100 Mg PO QID Gabapentin 800 Mg Tablet 800 Mg PO QID Levothyroxine Sodium 50 Mcg Tablet 50 Mcg PO DAILYAC Klonopin (Clonazepam) 0.5 Mg Tablet 1 Mg PO BID Norvasc (Amlodipine Besylate) 10 Mg Tablet 10 Mg PO DAILY Oxybutynin Chloride 5 Mg Tablet 2.5 Mg PO BID Depakote Er (Divalproex Sodium) 500 Mg Tab.er.24h 1,500 Mg PO HS Klor-Con M20 (Potassium Chloride) 20 Meq Tab.er.prt 20 Meq PO DAILY Cymbalta (Duloxetine Hcl) 60 Mg Capsule.dr 60 Mg PO DAILY Multivitamin with Iron Tablet (Multivitamin/Iron/Folic Acid) 1 Each Tablet 1 Tab PO DAILY Flomax (Tamsulosin Hcl) 0.4 Mg Cap.er.24h 0.8 Mg PO DAILY Olanzapine 5 Mg Tablet 2.5 Mg PO PRN Q2HR PRN MDD 10mg/ 24 hrs Remeron (Mirtazapine) 15 Mg Tablet 7.5 Mg PO HS Bisacodyl 10 Mg Supp.rect 10 Mg RC PRN DAILY PRN Tylenol (Acetaminophen) 325 Mg Tablet 650 Mg PO PRN Q6HRS PRN I have reviewed the current psychotropics carefully including drug interactions. Risk benefit ratio favors no change other than as noted in my dictated progress note. Diagnosis: Problems: (1) Anxiety disorder (2) Impulse control disorder (3) Schizophrenia, paranoid, chronic with acute exacerbation CATHY EMERY MD Jul 15, 2018 22:44
[2018-07-16 06:02] VITALS: BP 106/76
[2018-07-16] MEDS: LEVOTHYROXINE 50 MCG TABLET PO SCH (06:15)
[2018-07-16] MEDS: cloZAPine 25 MG TABLET PO SCH (08:12)
[2018-07-16] MEDS: TAMSULOSIN 0.4 MG CAP.ER.24H. PO SCH (08:12)
[2018-07-16] MEDS: GABAPENTIN 300 MG CAPSULE. PO SCH ×4 (08:12→20:56)
[2018-07-16] MEDS: MULTIVITAMIN with MINERAL TABLET. PO SCH (08:12)
[2018-07-16] MEDS: OXYBUTYNIN CHLORIDE 5 MG TABLET PO SCH ×2 (08:12→20:57)
[2018-07-16] MEDS: busPIRone 10 MG TABLET. PO SCH ×3 (08:12→20:57)
[2018-07-16] MEDS: POTASSIUM CHLORIDE 20 MEQ TABLET.ER. PO SCH (08:13)
[2018-07-16] MEDS: amLODIPine BESYLATE 10 MG TABLET PO SCH (08:13)
[2018-07-16] MEDS: NICOTINE 21MG PATCH. TD SCH (08:13)
[2018-07-16] MEDS: clonazePAM 0.5 MG TABLET PO SCH ×2 (08:19→20:57)
--- NOTE | 2018-07-16 08:48 | PN ---
DATE: 07/14/2018 PSYCHIATRIC PROGRESS NOTE This late entry 07/14/2018 covers elements not covered in my initial note. SUBJECTIVE: I met with the patient in the evening. The patient slept 3-3/4 hours previous evening. In the morning, he was agitated, cursing, somewhat "grouchy" per nursing report. He reportedly "slipped 3 of his pills" per nursing report, then he took them later. He was not given the trazodone previous night, this could account for the insomnia and I have advised the nursing staff to administer it tonight on 07/14/2018. REVIEW OF SYSTEMS: Ambulation impaired, with walker. No CV, , pulmonary, eye, ENT system symptoms on review. MENTAL STATUS EXAM: Oriented to himself and situation. Speech has some latency, coherent, abstract. Computation impaired, language function intact. Mood and affect remain somewhat anxious, labile, somewhat paranoid. LABORATORY DATA: Reviewed. IMPRESSION: Schizoaffective disorder, bipolar type, mixed with psychotic features; anxiety disorder, unspecified. Rest unchanged. PLAN: No change from initial note, gradually increase Clozaril, use the trazodone at night, maintain Depakote as a mood stabilizer, level therapeutic at 55. CATHY EMERY MD DR: SARINA/nilda JOB#: [id number] / [id number]
[2018-07-16 16:44] VITALS: BP 107/70
[2018-07-16] MEDS: DIVALPROEX ER 500 MG TAB.ER.24H PO SCH (20:57)
[2018-07-16] MEDS: risperiDONE 2 MG TABLET. PO SCH (20:57)
--- NOTE | 2018-07-16 22:27 | PDOC ---
Exam Note: Nguyễn Note: Please also refer to the separate dictated note~for this date of service dictated separately.~Patient seen individually. Discussed the patient with Nursing staff reviewed the chart.~Reviewed interim history and current functioning. Reviewed vital signs,~Labs/ Radiology~and current medications noted below. Continue current treatment with the changes noted in the dictated addendum note Assessment: Vital Signs: Vital Signs Date Time Temp Pulse Resp B/P (MAP) Pulse Ox O2 Delivery O2 Flow Rate FiO2 07/16/18 16:44 97.9 75 20 107/70 (82) 97 Room Air I&O Intake and Output 07/16/18 07:00 Intake Total 480 ml Balance 480 ml Intake Oral 480 ml Current Medications: Meds: Current Medications Acetaminophen (Tylenol) 650 mg PRN Q6HRS PRN PO PAIN / TEMP Last administered on 07/09/18at 22:06; Start 06/21/18 at 20:15 Clonazepam (KlonoPIN) 1 mg BID PO Last administered on 07/16/18at 20:57; Start 06/21/18 at 21:00 Gabapentin (Neurontin) 900 mg QID PO Last administered on 07/08/18at 16:58; Start 06/21/18 at 21:00; Stop 07/08/18 at 17:47; Status DC Al Hydroxide/Mg Hydroxide (Mylanta Plus Xs) 15 ml PRN AFTMEALHC PRN PO GI SYMPTOMS; Start 06/21/18 at 20:15 Magnesium Hydroxide (Milk Of Magnesia) 400 mg PRN DAILY PRN PO CONSTIPATION; Start 06/21/18 at 20:15 Multi-Ingredient Ointment (Analgesic [place]) 1 gerri PRN QID PRN TP MUSCLE PAIN; Start 06/21/18 at 20:15 Oxybutynin Chloride (Ditropan) 2.5 mg BID PO Last administered on 07/16/18at 20: 57; Start 06/21/18 at 21:00 Potassium Chloride (Klor-Con) 20 meq DAILY PO Last administered on 07/16/18at 08 :13; Start 06/22/18 at 09:00 Tamsulosin HCl (Flomax) 0.8 mg DAILY PO Last administered on 07/16/18at 08:12; Start 06/22/18 at 09:00 Amlodipine Besylate (Norvasc) 10 mg DAILY PO Last administered on 07/16/18 08: 13; Start 06/22/18 at 09:00 Baclofen (Lioresal) 10 mg QID PO Last administered on 07/07/18at 19:36; Start 06/21/18 at 21:00; Stop 07/08/18 at 11:48; Status DC Bisacodyl (Dulcolax Supp) 10 mg PRN DAILY PRN [place] CONSTIPATION; Start 06/21/18 at 20:45 Buspirone HCl (Buspar) 10 mg TID PO Last administered on 07/16/18at 20:57; Start 06/21/18 at 21:00 Divalproex Sodium (Depakote Er) 1,500 mg HS PO Last administered on 07/16/18 20:57; Start 06/21/18 at 21:00 Non-Formulary Medication (Gabapentin ) 800 mg QID PO ; Start 06/21/18 at 21:00 ; Status UNV Levothyroxine Sodium (Synthroid) 50 mcg DAILY06 PO Last administered on 06:15; Start 06/22/18 at 06:00 Multivitamins/ Calcium (Thera-M Plus) 1 tab DAILY PO Last administered on 08:12; Start 06/22/18 at 09:00 Olanzapine (ZyPREXA ZYDIS) 2.5 mg PRN Q2HR PRN PO PSYCHOSIS Last administered on 07/12/18at 10:17; Start 06/21/18 at 20:45 Olanzapine (ZyPREXA) 5 mg BID PO Last administered on 06/23/18at 08:47; Start 06/21/18 at 21:00; Stop 06/23/18 at 17:06; Status DC Risperidone (RisperDAL) 1.5 mg HS PO Last administered on 06/23/18at 19:45; Start 06/21/18 at 21:00; Stop 06/24/18 at 11:06; Status DC Trazodone HCl (Desyrel) 50 mg PRN QHS PRN PO INSOMNIA Last administered on 07/11 20:19; Start 06/21/18 at 21:00 Nicotine (Nicoderm Cq 7mg) 1 patch PRN DAILY PRN TD SMOKING CESSATION; Start 06/21/18 at 23:30; Stop 07/09/18 at 05:39; Status DC Vitamin D (Vitamin D3) 50,000 unit WEEKLY PO Last administered on 07/14/18at 08: 43; Start 06/23/18 at 16:30 Olanzapine (ZyPREXA) 5 mg DAILY PO Last administered on 06/25/18at 08:04; Start 06/24/18 at 09:00; Stop 06/26/18 at 00:00; Status DC Risperidone (RisperDAL) 1.75 mg HS PO Last administered on 07/06/18at 20:08; Start 06/24/18 at 21:00; Stop 07/07/18 at 12:40; Status DC Risperidone (RisperDAL) 2 mg HS PO Last administered on 07/16/18at 20:57; Start 07/07/18 at 21:00 Gabapentin (Neurontin) 600 mg QID PO Last administered on 07/16/18at 20:56; Start 07/08/18 at 21:00 Nicotine (Nicoderm Cq 21mg) 1 patch DAILY TD Last administered on 07/16/18at 08: 13; Start 07/09/18 at 09:00 Clozapine (Clozaril) 25 mg DAILY PO Last administered on 07/16/18at 08:12; Start 07/13/18 at 09:00 Active Scripts Active Reported Zyprexa (Olanzapine) 5 Mg Tablet 5 Mg PO BID NICODERM CQ 7mg (Nicotine) 1 Each Patch.td24 1 Patch TD PRN DAILY PRN Trazodone Hcl 50 Mg Tablet 50 Mg PO PRN QHS PRN Risperdal (Risperidone) 1 Mg Tablet 1.5 Mg PO HS Analgesic [place] (Methyl Salicylate/Menthol) 28 Gm Oint...g. 1 Gerri TP PRN QID PRN Milk Of Magnesia (Magnesium Hydroxide) 400 Mg/5 Ml Oral.susp 400 Mg PO PRN DAILY PRN Mag-Al Plus Xs Suspension (Mag Hydrox/Al Hydrox/Simeth) 30 Ml Oral.susp 15 Ml PO PRN AFTMEALHC PRN Buspirone Hcl 10 Mg Tablet 10 Mg PO TID Baclofen 10 Mg Tablet 10 Mg PO QID Gabapentin 100 Mg Capsule 100 Mg PO QID Gabapentin 800 Mg Tablet 800 Mg PO QID Levothyroxine Sodium 50 Mcg Tablet 50 Mcg PO DAILYAC Klonopin (Clonazepam) 0.5 Mg Tablet 1 Mg PO BID Norvasc (Amlodipine Besylate) 10 Mg Tablet 10 Mg PO DAILY Oxybutynin Chloride 5 Mg Tablet 2.5 Mg PO BID Depakote Er (Divalproex Sodium) 500 Mg Tab.er.24h 1,500 Mg PO HS Klor-Con M20 (Potassium Chloride) 20 Meq Tab.er.prt 20 Meq PO DAILY Cymbalta (Duloxetine Hcl) 60 Mg Capsule.dr 60 Mg PO DAILY Multivitamin with Iron Tablet (Multivitamin/Iron/Folic Acid) 1 Each Tablet 1 Tab PO DAILY Flomax (Tamsulosin Hcl) 0.4 Mg Cap.er.24h 0.8 Mg PO DAILY Olanzapine 5 Mg Tablet 2.5 Mg PO PRN Q2HR PRN MDD 10mg/ 24 hrs Remeron (Mirtazapine) 15 Mg Tablet 7.5 Mg PO HS Bisacodyl 10 Mg Supp.rect 10 Mg RC PRN DAILY PRN Tylenol (Acetaminophen) 325 Mg Tablet 650 Mg PO PRN Q6HRS PRN I have reviewed the current psychotropics carefully including drug interactions. Risk benefit ratio favors no change other than as noted in my dictated progress note. Diagnosis: Problems: (1) Anxiety disorder (2) Impulse control disorder (3) Schizophrenia, paranoid, chronic with acute exacerbation CATHY EMERY MD Jul 16, 2018 22:27
--- NOTE | 2018-07-16 22:45 | PN ---
DATE: 07/15/2018 PSYCHIATRIC PROGRESS NOTE This late entry 07/15/2018 covers elements not covered in my initial note. SUBJECTIVE: I met with the patient in the evening. The patient was also staffed at a treatment team meeting with the entire team in the morning. The patient slept 9 hours previous evening. Appetite 90%. At times, remains psychotic, states he wants to go to the [facility], refusing medications, yelling at times, psychotic, states people are trying to kill him. I addressed this with him at length individually and he was more insightful. REVIEW OF SYSTEMS: Ambulation impaired with walker. No CV, , pulmonary, eye, ENT system symptoms on review. MENTAL STATUS EXAMINATION: Oriented to himself and situation. Speech has some latency, coherent. Abstraction fair, computation impaired, language function intact, attention span short. Mood and affect remain somewhat anxious, labile. LABORATORY DATA: Reviewed. IMPRESSION: Schizoaffective disorder, bipolar type, mixed with psychotic features. Rest unchanged. PLAN: No change from initial note. Clozaril has been gradually increased. MAN Ty EMERY MD DR: SARINA/nilda JOB#: [id number] / [id number]
[2018-07-17] MEDS: LEVOTHYROXINE 50 MCG TABLET PO SCH (05:16)
[2018-07-17 05:42] VITALS: BP 99/64
[2018-07-17] MEDS: clonazePAM 0.5 MG TABLET PO SCH ×2 (08:31→20:26)
[2018-07-17] MEDS: OXYBUTYNIN CHLORIDE 5 MG TABLET PO SCH ×2 (08:31→20:27)
[2018-07-17] MEDS: cloZAPine 25 MG TABLET PO SCH (08:31)
[2018-07-17] MEDS: TAMSULOSIN 0.4 MG CAP.ER.24H. PO SCH (08:31)
[2018-07-17] MEDS: busPIRone 10 MG TABLET. PO SCH ×3 (08:31→20:26)
[2018-07-17] MEDS: POTASSIUM CHLORIDE 20 MEQ TABLET.ER. PO SCH (08:32)
[2018-07-17] MEDS: GABAPENTIN 300 MG CAPSULE. PO SCH ×4 (08:40→20:26)
[2018-07-17] MEDS: MULTIVITAMIN with MINERAL TABLET. PO SCH (08:40)
[2018-07-17] MEDS: NICOTINE 21MG PATCH. TD SCH (08:40)
[2018-07-17] MEDS: amLODIPine BESYLATE 10 MG TABLET PO SCH (08:40)
[2018-07-17 15:48] VITALS: BP 127/84
[2018-07-17] MEDS: DIVALPROEX ER 500 MG TAB.ER.24H PO SCH (20:26)
[2018-07-17] MEDS: risperiDONE 2 MG TABLET. PO SCH (20:26)
--- NOTE | 2018-07-18 00:31 | PN ---
DATE: 07/16/2018 This is a late entry for 07/16/2018 covers elements not covered in my initial note. SUBJECTIVE: I met with the patient in the evening. The patient slept 8-1/2 hours previous evening, but he is compliant with medications, did better per nursing report, somewhat withdrawn. However, when I met with him in his room at length, he appeared paranoid, delusional, talking about bizarre incidents where people were watching him and controlling him. REVIEW OF SYSTEMS: Ambulation impaired with walker. No CV, , pulmonary, eye, ENT system symptoms on review. Reliability poor. MENTAL STATUS EXAM: Oriented to himself and situation. Speech has some latency, coherent. Abstraction fair, computation impaired, language function intact, attention span short. Mood and affect remains labile. LABORATORY DATA: Reviewed. IMPRESSION: Schizoaffective disorder, bipolar type, mixed with psychotic features. Rest unchanged. PLAN: Continue current psychotropics. We will gradually increase the Clozaril and then taper the Risperdal. Rest unchanged from initial note. MAN Ty EMERY MD DR: SARINA/nilda JOB#: [id number] / [id number]
--- NOTE | 2018-07-18 01:02 | PN ---
DATE: 07/17/2018 SUBJECTIVE: The patient was seen today, met with the staff, chart reviewed. The patient's behavior remains the same and tends to isolate himself. He has episodes where he gets extremely angry, upset, threatening towards others. The patient most of the time is compliant with the treatment. OBSERVATION: VITAL SIGNS: Temperature 98.4, blood pressure 99/64, pulse 67, respirations 20, O2 sat 95%. Slept about 7 hours last night. MEDICATIONS: The patient's medications were reviewed. Currently, on clozapine 25 mg daily, gabapentin 600 mg q.i.d., Risperdal 2 mg at night, trazodone 50 mg at night p.r.n., Depakote 1500 mg at night, BuSpar 10 mg t.i.d., Klonopin 1 mg b.i.d. The patient is not having any major side effects. The patient is not presenting with any major medical complaints. The patient's labs reviewed, were within normal range except for slight increase in blood sugar at 139. DIAGNOSES: 1. Schizoaffective disorder, bipolar type. 2. Anxiety disorder, unspecified. PLAN: To continue with the treatment. DECLAN GALAVIZ MD DR: STEFF/nilda JOB#: [id number] / [id number]
[2018-07-18] MEDS: LEVOTHYROXINE 50 MCG TABLET PO SCH (05:09)
[2018-07-18 06:00] VITALS: BP 123/83
[2018-07-18] MEDS: busPIRone 10 MG TABLET. PO SCH ×3 (08:36→21:33)
[2018-07-18] MEDS: cloZAPine 25 MG TABLET PO SCH (08:36)
[2018-07-18] MEDS: TAMSULOSIN 0.4 MG CAP.ER.24H. PO SCH (08:36)
[2018-07-18] MEDS: OXYBUTYNIN CHLORIDE 5 MG TABLET PO SCH ×2 (08:36→21:34)
[2018-07-18] MEDS: clonazePAM 0.5 MG TABLET PO SCH ×2 (08:37→21:33)
[2018-07-18] MEDS: GABAPENTIN 300 MG CAPSULE. PO SCH ×4 (08:37→21:33)
[2018-07-18] MEDS: POTASSIUM CHLORIDE 20 MEQ TABLET.ER. PO SCH (08:37)
[2018-07-18] MEDS: MULTIVITAMIN with MINERAL TABLET. PO SCH (08:39)
[2018-07-18] MEDS: amLODIPine BESYLATE 10 MG TABLET PO SCH (08:39)
[2018-07-18] MEDS: NICOTINE 21MG PATCH. TD SCH (08:39)
[2018-07-18 16:27] VITALS: BP 120/74
[2018-07-18] MEDS: risperiDONE 2 MG TABLET. PO SCH (21:33)
[2018-07-18] MEDS: DIVALPROEX ER 500 MG TAB.ER.24H PO SCH (21:33)
[2018-07-18 21:46] VITALS: BP 150/97
--- NOTE | 2018-07-18 22:57 | PN ---
DATE: 07/18/2018 SUBJECTIVE: The patient was seen today, met with the staff, chart reviewed. The patient apparently isolating himself, staying close to the main door and states he wants to be sent to [facility] because he may have a brain tumor. OBSERVATION: VITAL SIGNS: Temperature 97.3, blood pressure 123/83, pulse 77, respirations 16, O2 sat 97%. Slept about 7 hours last night. MEDICATIONS: Reviewed. Currently on clozapine 25 mg daily, gabapentin 600 mg q.i.d., Risperdal 2 mg at night, trazodone 50 mg at night p.r.n., Depakote 1500 mg at night, BuSpar 10 mg t.i.d. and Klonopin 1 mg b.i.d. The patient's behavior fluctuates. The patient is still paranoid and delusional, lacking insight in to his problems. The patient's lab reviewed. The patient is not having any side effects to medications. DIAGNOSES: 1. Schizoaffective disorder, bipolar type. 2. Anxiety disorder, unspecified. PLAN: Continue with treatment. DECLAN GALAVIZ MD DR: STEFF/nilda JOB#: [id number] / [id number]
[2018-07-19] MEDS: LEVOTHYROXINE 50 MCG TABLET PO SCH (04:50)
[2018-07-19 06:03] VITALS: BP 131/84
[2018-07-19 06:49] LABS: BASO % 1 % (0-3); EOS # 0.2 x10^3/uL (0.0-0.7); EOS % 3 % (0-3); HEMOGLOBIN 14.8 g/dL (13.0-17.5); LYMPH # 1.5 x10^3/uL (1.0-4.8); LYMPH % 29 % (24-48); MEAN CORPUSCULAR HEMOGLOBIN 30 pg (25-35); MEAN CORPUSCULAR HGB CONC 34 g/dL (31-37); MEAN CORPUSCULAR VOLUME 89 fL (79-100); MONO # 0.6 x10^3/uL (0.0-1.1); MONO % 12 % (0-9); NEUT # 2.7 x10^3uL (1.8-7.7); NEUT % 55 % (31-73); PLATELET COUNT 333 x10^3/uL (140-400); RED BLOOD COUNT 4.96 x10^6/uL (4.30-5.70); RED CELL DISTRIBUTION WIDTH 12.9 % (11.5-14.5)
[2018-07-19 07:06] LABS: ALBUMIN 3.5 g/dL (3.4-5.0); ALBUMIN/GLOBULIN RATIO 0.9 (1.0-1.7); CALCIUM 8.7 mg/dL (8.5-10.1); CREATININE 0.6 mg/dL (0.7-1.3); GFR 138.9; POTASSIUM 4.1 mmol/L (3.5-5.1); TOTAL BILIRUBIN 0.4 mg/dL (0.2-1.0); TOTAL PROTEIN 7.2 g/dL (6.4-8.2)
[2018-07-19] MEDS: OXYBUTYNIN CHLORIDE 5 MG TABLET PO SCH ×2 (08:38→20:11)
[2018-07-19] MEDS: busPIRone 10 MG TABLET. PO SCH ×3 (08:38→20:11)
[2018-07-19] MEDS: TAMSULOSIN 0.4 MG CAP.ER.24H. PO SCH (08:38)
[2018-07-19] MEDS: cloZAPine 25 MG TABLET PO SCH (08:38)
[2018-07-19] MEDS: GABAPENTIN 300 MG CAPSULE. PO SCH ×4 (08:42→20:10)
[2018-07-19] MEDS: POTASSIUM CHLORIDE 20 MEQ TABLET.ER. PO SCH (08:42)
[2018-07-19] MEDS: clonazePAM 0.5 MG TABLET PO SCH ×2 (08:42→20:15)
[2018-07-19] MEDS: NICOTINE 21MG PATCH. TD SCH (08:43)
[2018-07-19] MEDS: MULTIVITAMIN with MINERAL TABLET. PO SCH (08:43)
[2018-07-19] MEDS: amLODIPine BESYLATE 10 MG TABLET PO SCH (08:43)
[2018-07-19 15:53] VITALS: BP 115/77
[2018-07-19] MEDS: risperiDONE 2 MG TABLET. PO SCH (20:11)
[2018-07-19] MEDS: DIVALPROEX ER 500 MG TAB.ER.24H PO SCH (20:11)
--- NOTE | 2018-07-20 03:18 | PN ---
DATE: 07/19/2018 SUBJECTIVE: The patient was seen today, met with the staff, chart reviewed. The patient's behavior remains the same. The patient is still paranoid, suspicious, constantly complaining. The patient also unrealistic with his discharge plans. The patient tends to isolate himself. OBSERVATION: VITAL SIGNS: Temperature 97.3, blood pressure 131/84, pulse 89, respirations 18, O2 sat 97%. Slept about 7 hours last night. The patient's appetite normal. The patient's medications reviewed and also lab reviewed. The patient is not having any major physical complaints, not having any side effects. ASSESSMENT: 1. Schizoaffective disorder, bipolar type. 2. Anxiety disorder, unspecified. PLAN: Continue with the treatment. DECLAN GALAVIZ MD DR: STEFF/nilda JOB#: [id number] / [id number]
[2018-07-20 05:46] VITALS: BP 116/80
[2018-07-20] MEDS: LEVOTHYROXINE 50 MCG TABLET PO SCH (06:13)
[2018-07-20] MEDS: TAMSULOSIN 0.4 MG CAP.ER.24H. PO SCH (07:47)
[2018-07-20] MEDS: MULTIVITAMIN with MINERAL TABLET. PO SCH (07:48)
[2018-07-20] MEDS: amLODIPine BESYLATE 10 MG TABLET PO SCH (07:48)
[2018-07-20] MEDS: busPIRone 10 MG TABLET. PO SCH ×3 (07:48→19:49)
[2018-07-20] MEDS: OXYBUTYNIN CHLORIDE 5 MG TABLET PO SCH ×2 (07:49→19:50)
[2018-07-20] MEDS: NICOTINE 21MG PATCH. TD SCH (07:49)
[2018-07-20] MEDS: cloZAPine 25 MG TABLET PO SCH (07:49)
[2018-07-20] MEDS: clonazePAM 0.5 MG TABLET PO SCH ×2 (07:49→19:51)
[2018-07-20] MEDS: GABAPENTIN 300 MG CAPSULE. PO SCH ×4 (07:49→19:50)
[2018-07-20] MEDS: POTASSIUM CHLORIDE 20 MEQ TABLET.ER. PO SCH (08:00)
[2018-07-20 16:24] VITALS: BP 133/90
[2018-07-20] MEDS: risperiDONE 2 MG TABLET. PO SCH (19:49)
[2018-07-20] MEDS: DIVALPROEX ER 500 MG TAB.ER.24H PO SCH (19:49)
--- NOTE | 2018-07-21 04:37 | PN ---
DATE: 07/20/2018 SUBJECTIVE: The patient was seen today, met with the staff. Staff reports no major problems. The patient is still paranoid, episodes of agitation and constantly wanting to leave, but the patient still does not have a placement. OBSERVATION: VITAL SIGNS: Temperature 98.3, blood pressure 116/80, pulse 66, respirations 20, O2 sat 95%. Slept about 4 hours last night. The patient is not having any side effects to the medications. The patient's medications reviewed, also labs reviewed. ASSESSMENT: 1. Schizoaffective disorder, bipolar type. 2. Anxiety disorder, unspecified. PLAN: To continue with the treatment. DECLAN GALAVIZ MD DR: STEFF/nilda JOB#: [id number] / [id number]
[2018-07-21 05:55] VITALS: BP 105/76
[2018-07-21] MEDS: LEVOTHYROXINE 50 MCG TABLET PO SCH (06:06)
[2018-07-21] MEDS: GABAPENTIN 300 MG CAPSULE. PO SCH ×4 (09:14→19:44)
[2018-07-21] MEDS: cloZAPine 25 MG TABLET PO SCH (09:14)
[2018-07-21] MEDS: TAMSULOSIN 0.4 MG CAP.ER.24H. PO SCH (09:14)
[2018-07-21] MEDS: busPIRone 10 MG TABLET. PO SCH ×3 (09:14→19:43)
[2018-07-21] MEDS: amLODIPine BESYLATE 10 MG TABLET PO SCH (09:15)
[2018-07-21] MEDS: OXYBUTYNIN CHLORIDE 5 MG TABLET PO SCH ×2 (09:16→19:43)
[2018-07-21] MEDS: POTASSIUM CHLORIDE 20 MEQ TABLET.ER. PO SCH (09:25)
[2018-07-21] MEDS: MULTIVITAMIN with MINERAL TABLET. PO SCH (09:31)
[2018-07-21] MEDS: CHOLECALCIFEROL (VITAMIN D3) 50,000 UNIT CAPSULE PO SCH (09:31)
[2018-07-21] MEDS: clonazePAM 0.5 MG TABLET PO SCH ×2 (09:31→19:44)
[2018-07-21] MEDS: NICOTINE 21MG PATCH. TD SCH (09:32)
[2018-07-21] MEDS: DIVALPROEX ER 500 MG TAB.ER.24H PO SCH (19:43)
[2018-07-21] MEDS: risperiDONE 2 MG TABLET. PO SCH (19:44)
[2018-07-21 21:00] VITALS: BP 118/79
[2018-07-22] MEDS: LEVOTHYROXINE 50 MCG TABLET PO SCH (05:16)
[2018-07-22 05:56] VITALS: BP 136/83
[2018-07-22] MEDS: TAMSULOSIN 0.4 MG CAP.ER.24H. PO SCH (08:16)
[2018-07-22] MEDS: POTASSIUM CHLORIDE 20 MEQ TABLET.ER. PO SCH (08:16)
[2018-07-22] MEDS: NICOTINE 21MG PATCH. TD SCH (08:16)
[2018-07-22] MEDS: MULTIVITAMIN with MINERAL TABLET. PO SCH (08:17)
[2018-07-22] MEDS: cloZAPine 25 MG TABLET PO SCH (08:17)
[2018-07-22] MEDS: amLODIPine BESYLATE 10 MG TABLET PO SCH (08:17)
[2018-07-22] MEDS: OXYBUTYNIN CHLORIDE 5 MG TABLET PO SCH ×2 (08:18→20:33)
[2018-07-22] MEDS: busPIRone 10 MG TABLET. PO SCH ×3 (08:18→20:35)
[2018-07-22] MEDS: GABAPENTIN 300 MG CAPSULE. PO SCH ×4 (08:18→20:35)
[2018-07-22] MEDS: clonazePAM 0.5 MG TABLET PO SCH ×2 (08:19→20:35)
--- NOTE | 2018-07-22 10:58 | PN ---
DATE: 07/21/2018 SUBJECTIVE: The patient was seen today, met with the staff, chart reviewed. The patient's behavior remains the same, tends to isolate himself, still paranoid, intrusive, isolates himself. OBSERVATION: VITAL SIGNS: Temperature 97.3, blood pressure 105/76, pulse 66, respirations 18, O2 sat 92%. Slept about 5 hours last night. CURRENT MEDICATIONS: The patient's medications reviewed. LABORATORY DATA: Labs reviewed. No side effects. ASSESSMENT: 1. Schizoaffective disorder, bipolar type. 2. Anxiety disorder, unspecified. PLAN: Continue with the treatment. DECLAN GALAVIZ MD DR: STEFF/nilda JOB#: [id number] / [id number]
[2018-07-22 16:37] VITALS: BP 119/81
[2018-07-22] MEDS: DIVALPROEX ER 500 MG TAB.ER.24H PO SCH (20:33)
[2018-07-22] MEDS: risperiDONE 2 MG TABLET. PO SCH (20:33)
--- NOTE | 2018-07-23 01:25 | PN ---
DATE: 07/22/2018 SUBJECTIVE: The patient was seen today, met with the staff, chart reviewed. The patient's behavior remains the same. He has episodes where he gets very agitated, paranoid and suspicious, but most of the time he has been isolating himself. The patient also unrealistic with his goals. OBSERVATIONS: VITAL SIGNS: Temperature 97.1, blood pressure 136/83, pulse 79, respirations 20, O2 sat 95%. Slept about 5 hours last night. The patient's medications reviewed. Also, lab reviewed. The patient is not having any side effects to medications. ASSESSMENT: 1. Schizoaffective disorder, bipolar type. 2. Anxiety disorder, unspecified. PLAN: Continue with the treatment. DECLAN GALAVIZ MD DR: STEFF/nilda JOB#: [id number] / [id number]
[2018-07-23] MEDS: LEVOTHYROXINE 50 MCG TABLET PO SCH (05:29)
[2018-07-23 06:32] VITALS: BP 122/85
[2018-07-23] MEDS: GABAPENTIN 300 MG CAPSULE. PO SCH ×4 (08:12→21:20)
[2018-07-23] MEDS: NICOTINE 21MG PATCH. TD SCH (08:13)
[2018-07-23] MEDS: POTASSIUM CHLORIDE 20 MEQ TABLET.ER. PO SCH (08:13)
[2018-07-23] MEDS: clonazePAM 0.5 MG TABLET PO SCH ×2 (08:13→21:20)
[2018-07-23] MEDS: TAMSULOSIN 0.4 MG CAP.ER.24H. PO SCH (08:13)
[2018-07-23] MEDS: MULTIVITAMIN with MINERAL TABLET. PO SCH (08:13)
[2018-07-23] MEDS: amLODIPine BESYLATE 10 MG TABLET PO SCH (08:13)
[2018-07-23] MEDS: cloZAPine 25 MG TABLET PO SCH (08:13)
[2018-07-23] MEDS: OXYBUTYNIN CHLORIDE 5 MG TABLET PO SCH ×2 (08:14→21:19)
[2018-07-23] MEDS: busPIRone 10 MG TABLET. PO SCH ×3 (08:15→21:18)
[2018-07-23 16:02] VITALS: BP 109/67
[2018-07-23] MEDS: DIVALPROEX ER 500 MG TAB.ER.24H PO SCH (21:19)
[2018-07-23] MEDS: risperiDONE 2 MG TABLET. PO SCH (21:20)
[2018-07-24 05:14] VITALS: BP 121/84
[2018-07-24] MEDS: LEVOTHYROXINE 50 MCG TABLET PO SCH (05:24)
[2018-07-24] MEDS: OXYBUTYNIN CHLORIDE 5 MG TABLET PO SCH ×2 (08:05→19:44)
[2018-07-24] MEDS: NICOTINE 21MG PATCH. TD SCH (08:05)
[2018-07-24] MEDS: POTASSIUM CHLORIDE 20 MEQ TABLET.ER. PO SCH (08:06)
[2018-07-24] MEDS: amLODIPine BESYLATE 10 MG TABLET PO SCH (08:06)
[2018-07-24] MEDS: busPIRone 10 MG TABLET. PO SCH ×3 (08:06→19:44)
[2018-07-24] MEDS: MULTIVITAMIN with MINERAL TABLET. PO SCH (08:06)
[2018-07-24] MEDS: cloZAPine 25 MG TABLET PO SCH (08:06)
[2018-07-24] MEDS: clonazePAM 0.5 MG TABLET PO SCH ×2 (08:08→19:44)
[2018-07-24] MEDS: GABAPENTIN 300 MG CAPSULE. PO SCH ×4 (08:08→19:44)
[2018-07-24] MEDS: TAMSULOSIN 0.4 MG CAP.ER.24H. PO SCH (08:09)
--- NOTE | 2018-07-24 08:23 | PN ---
DATE: 07/23/2018 SUBJECTIVE: The patient was seen today, met with the staff, chart reviewed. The patient's behavior remains the same, tends to avoid staff and residents, interacts with the staff occasionally. The patient was spending most of the time isolating himself, tend to pace a lot. The patient also has episodes where he gets very paranoid and suspicious. OBSERVATION: VITAL SIGNS: Temperature 97.8, blood pressure 109/67, pulse 78, respirations 18, O2 sat 98%. Slept about 8 hours last night. The patient is not presenting with any other major behavior problems. MEDICATIONS: Reviewed. LABORATORY DATA: Reviewed. ASSESSMENT: 1. Schizoaffective disorder, bipolar type. 2. Anxiety disorder, unspecified. PLAN: To continue with treatment. The patient is also awaiting for placement. DECLAN GALAVIZ MD DR: STEFF/nilda JOB#: [id number] / [id number]
[2018-07-24] MEDS ORDERED: CHOLECALCIFEROL (VITAMIN D3) 50,000 UNIT CAPSULE PO SCH (09:00)
[2018-07-24 16:08] VITALS: BP 127/89
[2018-07-24] MEDS: DIVALPROEX ER 500 MG TAB.ER.24H PO SCH (20:13)
[2018-07-24] MEDS: risperiDONE 2 MG TABLET. PO SCH (20:13)
[2018-07-25 05:47] VITALS: BP 124/87
[2018-07-25] MEDS: LEVOTHYROXINE 50 MCG TABLET PO SCH (05:52)
[2018-07-25] MEDS: cloZAPine 25 MG TABLET PO SCH (07:59)
[2018-07-25] MEDS: TAMSULOSIN 0.4 MG CAP.ER.24H. PO SCH (07:59)
[2018-07-25] MEDS: NICOTINE 21MG PATCH. TD SCH (07:59)
[2018-07-25] MEDS: amLODIPine BESYLATE 10 MG TABLET PO SCH (07:59)
[2018-07-25] MEDS: busPIRone 10 MG TABLET. PO SCH ×3 (07:59→19:42)
[2018-07-25] MEDS: POTASSIUM CHLORIDE 20 MEQ TABLET.ER. PO SCH (08:00)
[2018-07-25] MEDS: MULTIVITAMIN with MINERAL TABLET. PO SCH (08:00)
[2018-07-25] MEDS: OXYBUTYNIN CHLORIDE 5 MG TABLET PO SCH ×2 (08:00→19:42)
[2018-07-25] MEDS: clonazePAM 0.5 MG TABLET PO SCH ×2 (08:03→19:41)
[2018-07-25] MEDS: GABAPENTIN 300 MG CAPSULE. PO SCH ×4 (08:03→19:42)
[2018-07-25 17:15] VITALS: BP 121/71
--- NOTE | 2018-07-25 18:09 | PN ---
DATE: 07/25/2018 SUBJECTIVE: The patient was seen today, met with the staff, chart reviewed. The patient's behavior remains the same. He tends to isolate himself. Occasional outbursts of anger, rage, paranoia, but most of the time is very calm, usually likes to be left alone. The patient is able to make eye contact, able to hold the conversation. OBSERVATION: VITAL SIGNS: Temperature 98.6, blood pressure 124/87, pulse 80, respirations 20, O2 sat 99%. Slept about 8 hours last night. The patient's appetite is normal. The patient is not having any side effects from medications. The patient's lab reviewed. ASSESSMENT: 1. Schizoaffective disorder, bipolar type. 2. Anxiety disorder, unspecified. PLAN: To continue with the treatment. The patient is still awaiting for placement. DECLAN GALAVIZ MD DR: STEFF/nilda JOB#: [id number] / [id number]
[2018-07-25] MEDS: DIVALPROEX ER 500 MG TAB.ER.24H PO SCH (19:41)
[2018-07-25] MEDS: risperiDONE 2 MG TABLET. PO SCH (19:42)
[2018-07-26] MEDS: LEVOTHYROXINE 50 MCG TABLET PO SCH (04:57)
[2018-07-26 06:10] VITALS: BP 121/76
[2018-07-26 07:41] LABS: BASO # 0.1 x10^3/uL (0.0-0.2); BASO % 1 % (0-3); EOS # 0.3 x10^3/uL (0.0-0.7); EOS % 4 % (0-3); HEMOGLOBIN 14.4 g/dL (13.0-17.5); LYMPH # 1.8 x10^3/uL (1.0-4.8); LYMPH % 31 % (24-48); MEAN CORPUSCULAR HEMOGLOBIN 30 pg (25-35); MEAN CORPUSCULAR HGB CONC 34 g/dL (31-37); MEAN CORPUSCULAR VOLUME 89 fL (79-100); MONO # 0.5 x10^3/uL (0.0-1.1); MONO % 9 % (0-9); NEUT # 3.1 x10^3uL (1.8-7.7); NEUT % 55 % (31-73); PLATELET COUNT 258 x10^3/uL (140-400); RED BLOOD COUNT 4.84 x10^6/uL (4.30-5.70); RED CELL DISTRIBUTION WIDTH 13.5 % (11.5-14.5); WHITE BLOOD COUNT 5.7 x10^3/uL (4.0-11.0)
[2018-07-26] MEDS: GABAPENTIN 300 MG CAPSULE. PO SCH ×4 (09:07→20:27)
[2018-07-26] MEDS: busPIRone 10 MG TABLET. PO SCH ×3 (09:07→20:27)
[2018-07-26] MEDS: POTASSIUM CHLORIDE 20 MEQ TABLET.ER. PO SCH (09:07)
[2018-07-26] MEDS: TAMSULOSIN 0.4 MG CAP.ER.24H. PO SCH (09:07)
[2018-07-26] MEDS: MULTIVITAMIN with MINERAL TABLET. PO SCH (09:07)
[2018-07-26] MEDS: OXYBUTYNIN CHLORIDE 5 MG TABLET PO SCH ×2 (09:07→20:27)
[2018-07-26] MEDS: NICOTINE 21MG PATCH. TD SCH (09:08)
[2018-07-26] MEDS: amLODIPine BESYLATE 10 MG TABLET PO SCH (09:08)
[2018-07-26] MEDS: cloZAPine 25 MG TABLET PO SCH (09:08)
[2018-07-26] MEDS: clonazePAM 0.5 MG TABLET PO SCH ×2 (09:11→20:26)
[2018-07-26 15:53] VITALS: BP 107/77
--- NOTE | 2018-07-26 19:55 | PDOC ---
Exam Note: Nguyễn Note: Please also refer to the separate dictated note~for this date of service dictated separately.~Patient seen individually. Discussed the patient with Nursing staff reviewed the chart.~Reviewed interim history and current functioning. Reviewed vital signs,~Labs/ Radiology~and current medications noted below. Continue current treatment with the changes noted in the dictated addendum note Assessment: Vital Signs: Vital Signs Date Time Temp Pulse Resp B/P (MAP) Pulse Ox O2 Delivery O2 Flow Rate FiO2 07/26/18 15:53 99.0 70 16 107/77 (87) 96 07/25/18 05:47 Room Air I&O Intake and Output 07/26/18 07:00 Intake Total 1560 ml Balance 1560 ml Intake Oral 1560 ml # Bowel Movements 2 Labs: Laboratory Tests Test 07/26/18 07:19 White Blood Count 5.7 x10^3/uL (4.0-11.0) Red Blood Count 4.84 x10^6/uL (4.30-5.70) Hemoglobin 14.4 g/dL (13.0-17.5) Hematocrit 43.0 % (39.0-53.0) Mean Corpuscular Volume 89 fL (79-100) Mean Corpuscular Hemoglobin 30 pg (25-35) Mean Corpuscular Hemoglobin Concent 34 g/dL (31-37) Red Cell Distribution Width 13.5 % (11.5-14.5) Platelet Count 258 x10^3/uL (140-400) Neutrophils (%) (Auto) 55 % (31-73) Lymphocytes (%) (Auto) 31 % (24-48) Monocytes (%) (Auto) 9 % (0-9) Eosinophils (%) (Auto) 4 % (0-3) H Basophils (%) (Auto) 1 % (0-3) Neutrophils # (Auto) 3.1 x10^3uL (1.8-7.7) Lymphocytes # (Auto) 1.8 x10^3/uL (1.0-4.8) Monocytes # (Auto) 0.5 x10^3/uL (0.0-1.1) Eosinophils # (Auto) 0.3 x10^3/uL (0.0-0.7) Basophils # (Auto) 0.1 x10^3/uL (0.0-0.2) Current Medications: Meds: Current Medications Acetaminophen (Tylenol) 650 mg PRN Q6HRS PRN PO PAIN / TEMP Last administered on 07/09/18at 22:06; Start 06/21/18 at 20:15 Clonazepam (KlonoPIN) 1 mg BID PO Last administered on 07/26/18at 09:11; Start 06/21/18 at 21:00 Gabapentin (Neurontin) 900 mg QID PO Last administered on 07/08/18at 16:58; Start 06/21/18 at 21:00; Stop 07/08/18 at 17:47; Status DC Al Hydroxide/Mg Hydroxide (Mylanta Plus Xs) 15 ml PRN AFTMEALHC PRN PO GI SYMPTOMS; Start 06/21/18 at 20:15 Magnesium Hydroxide (Milk Of Magnesia) 400 mg PRN DAILY PRN PO CONSTIPATION; Start 06/21/18 at 20:15 Multi-Ingredient Ointment (Analgesic [place]) 1 gerri PRN QID PRN TP MUSCLE PAIN; Start 06/21/18 at 20:15 Oxybutynin Chloride (Ditropan) 2.5 mg BID PO Last administered on 07/26/18at 09 :07; Start 06/21/18 at 21:00 Potassium Chloride (Klor-Con) 20 meq DAILY PO Last administered on 07/26/18at 09:07; Start 06/22/18 at 09:00 Tamsulosin HCl (Flomax) 0.8 mg DAILY PO Last administered on 07/26/18at 09:07; Start 06/22/18 at 09:00 Amlodipine Besylate (Norvasc) 10 mg DAILY PO Last administered on 07/26/18at 09 :08; Start 06/22/18 at 09:00 Baclofen (Lioresal) 10 mg QID PO Last administered on 07/07/18at 19:36; Start 06/21/18 at 21:00; Stop 07/08/18 at 11:48; Status DC Bisacodyl (Dulcolax Supp) 10 mg PRN DAILY PRN [place] CONSTIPATION; Start 06/21/18 at 20:45 Buspirone HCl (Buspar) 10 mg TID PO Last administered on 07/26/18at 13:36; Start 06/21/18 at 21:00 Divalproex Sodium (Depakote Er) 1,500 mg HS PO Last administered on 07/25/18at 19:41; Start 06/21/18 at 21:00 Non-Formulary Medication (Gabapentin ) 800 mg QID PO ; Start 06/21/18 at 21:00 ; Status UNV Levothyroxine Sodium (Synthroid) 50 mcg DAILY06 PO Last administered on at 04:57; Start 06/22/18 at 06:00 Multivitamins/ Calcium (Thera-M Plus) 1 tab DAILY PO Last administered on 07/26at 09:07; Start 06/22/18 at 09:00 Olanzapine (ZyPREXA ZYDIS) 2.5 mg PRN Q2HR PRN PO PSYCHOSIS Last administered on 07/12/18at 10:17; Start 06/21/18 at 20:45 Olanzapine (ZyPREXA) 5 mg BID PO Last administered on 06/23/18at 08:47; Start 06/21/18 at 21:00; Stop 06/23/18 at 17:06; Status DC Risperidone (RisperDAL) 1.5 mg HS PO Last administered on 06/23/18at 19:45; Start 06/21/18 at 21:00; Stop 06/24/18 at 11:06; Status DC Trazodone HCl (Desyrel) 50 mg PRN QHS PRN PO INSOMNIA Last administered on 07/11at 20:19; Start 06/21/18 at 21:00 Nicotine (Nicoderm Cq 7mg) 1 patch PRN DAILY PRN TD SMOKING CESSATION; Start 06/21/18 at 23:30; Stop 07/09/18 at 05:39; Status DC Vitamin D (Vitamin D3) 50,000 unit WEEKLY PO Last administered on 07/21/18at 09 :31; Start 06/23/18 at 16:30 Olanzapine (ZyPREXA) 5 mg DAILY PO Last administered on 06/25/18at 08:04; Start 06/24/18 at 09:00; Stop 06/26/18 at 00:00; Status DC Risperidone (RisperDAL) 1.75 mg HS PO Last administered on 07/06/18at 20:08; Start 06/24/18 at 21:00; Stop 07/07/18 at 12:40; Status DC Risperidone (RisperDAL) 2 mg HS PO Last administered on 07/25/18at 19:42; Start 07/07/18 at 21:00 Gabapentin (Neurontin) 600 mg QID PO Last administered on 07/26/18at 16:25; Start 07/08/18 at 21:00 Nicotine (Nicoderm Cq 21mg) 1 patch DAILY TD Last administered on 07/26/18at 09 :08; Start 07/09/18 at 09:00 Clozapine (Clozaril) 25 mg DAILY PO Last administered on 07/26/18at 09:08; Start 07/13/18 at 09:00 Vitamin D (Vitamin D3) 50,000 unit WEEKLY PO ; Start 07/24/18 at 09:00; Status Cancel Active Scripts Active Reported Zyprexa (Olanzapine) 5 Mg Tablet 5 Mg PO BID NICODERM CQ 7mg (Nicotine) 1 Each Patch.td24 1 Patch TD PRN DAILY PRN Trazodone Hcl 50 Mg Tablet 50 Mg PO PRN QHS PRN Risperdal (Risperidone) 1 Mg Tablet 1.5 Mg PO HS Analgesic [place] (Methyl Salicylate/Menthol) 28 Gm Oint...g. 1 Gerri TP PRN QID PRN Milk Of Magnesia (Magnesium Hydroxide) 400 Mg/5 Ml Oral.susp 400 Mg PO PRN DAILY PRN Mag-Al Plus Xs Suspension (Mag Hydrox/Al Hydrox/Simeth) 30 Ml Oral.susp 15 Ml PO PRN AFTMEALHC PRN Buspirone Hcl 10 Mg Tablet 10 Mg PO TID Baclofen 10 Mg Tablet 10 Mg PO QID Gabapentin 100 Mg Capsule 100 Mg PO QID Gabapentin 800 Mg Tablet 800 Mg PO QID Levothyroxine Sodium 50 Mcg Tablet 50 Mcg PO DAILYAC Klonopin (Clonazepam) 0.5 Mg Tablet 1 Mg PO BID Norvasc (Amlodipine Besylate) 10 Mg Tablet 10 Mg PO DAILY Oxybutynin Chloride 5 Mg Tablet 2.5 Mg PO BID Depakote Er (Divalproex Sodium) 500 Mg Tab.er.24h 1,500 Mg PO HS Klor-Con M20 (Potassium Chloride) 20 Meq Tab.er.prt 20 Meq PO DAILY Cymbalta (Duloxetine Hcl) 60 Mg Capsule.dr 60 Mg PO DAILY Multivitamin with Iron Tablet (Multivitamin/Iron/Folic Acid) 1 Each Tablet 1 Tab PO DAILY Flomax (Tamsulosin Hcl) 0.4 Mg Cap.er.24h 0.8 Mg PO DAILY Olanzapine 5 Mg Tablet 2.5 Mg PO PRN Q2HR PRN MDD 10mg/ 24 hrs Remeron (Mirtazapine) 15 Mg Tablet 7.5 Mg PO HS Bisacodyl 10 Mg Supp.rect 10 Mg RC PRN DAILY PRN Tylenol (Acetaminophen) 325 Mg Tablet 650 Mg PO PRN Q6HRS PRN I have reviewed the current psychotropics carefully including drug interactions. Risk benefit ratio favors no change other than as noted in my dictated progress note. Diagnosis: Problems: (1) Anxiety disorder (2) Impulse control disorder (3) Schizophrenia, paranoid, chronic with acute exacerbation CATHY EMERY MD Jul 26, 2018 19:55
[2018-07-26] MEDS: DIVALPROEX ER 500 MG TAB.ER.24H PO SCH (20:26)
[2018-07-26] MEDS: risperiDONE 2 MG TABLET. PO SCH (20:27)
[2018-07-27 06:07] VITALS: BP 118/73
[2018-07-27] MEDS: LEVOTHYROXINE 50 MCG TABLET PO SCH (06:46)
[2018-07-27] MEDS: NICOTINE 21MG PATCH. TD SCH (09:36)
[2018-07-27] MEDS: clonazePAM 0.5 MG TABLET PO SCH ×2 (09:37→20:29)
[2018-07-27] MEDS: POTASSIUM CHLORIDE 20 MEQ TABLET.ER. PO SCH (09:37)
[2018-07-27] MEDS: busPIRone 10 MG TABLET. PO SCH ×3 (09:37→20:26)
[2018-07-27] MEDS: GABAPENTIN 300 MG CAPSULE. PO SCH ×4 (09:37→20:27)
[2018-07-27] MEDS: MULTIVITAMIN with MINERAL TABLET. PO SCH (09:38)
[2018-07-27] MEDS: cloZAPine 25 MG TABLET PO SCH (09:38)
[2018-07-27] MEDS: TAMSULOSIN 0.4 MG CAP.ER.24H. PO SCH (09:38)
[2018-07-27] MEDS: amLODIPine BESYLATE 10 MG TABLET PO SCH (09:38)
[2018-07-27] MEDS: OXYBUTYNIN CHLORIDE 5 MG TABLET PO SCH ×2 (09:38→20:26)
[2018-07-27 16:25] VITALS: BP 90/67
--- NOTE | 2018-07-27 19:43 | PDOC ---
Exam Note: Nguyễn Note: Please also refer to the separate dictated note~for this date of service dictated separately.~Patient seen individually. Discussed the patient with Nursing staff reviewed the chart.~Reviewed interim history and current functioning. Reviewed vital signs,~Labs/ Radiology~and current medications noted below. Continue current treatment with the changes noted in the dictated addendum note Assessment: Vital Signs: Vital Signs Date Time Temp Pulse Resp B/P (MAP) Pulse Ox O2 Delivery O2 Flow Rate FiO2 07/27/18 16:25 98.0 89 18 90/67 (75) 98 07/25/18 05:47 Room Air I&O Intake and Output 07/27/18 07:00 Intake Total 1080 ml Balance 1080 ml Intake Oral 1080 ml # Voids 1 # Bowel Movements 1 Current Medications: Meds: Current Medications Acetaminophen (Tylenol) 650 mg PRN Q6HRS PRN PO PAIN / TEMP Last administered on 07/09/18at 22:06; Start 06/21/18 at 20:15 Clonazepam (KlonoPIN) 1 mg BID PO Last administered on 07/27/18at 09:37; Start 06/21/18 at 21:00 Gabapentin (Neurontin) 900 mg QID PO Last administered on 07/08/18at 16:58; Start 06/21/18 at 21:00; Stop 07/08/18 at 17:47; Status DC Al Hydroxide/Mg Hydroxide (Mylanta Plus Xs) 15 ml PRN AFTMEALHC PRN PO GI SYMPTOMS; Start 06/21/18 at 20:15 Magnesium Hydroxide (Milk Of Magnesia) 400 mg PRN DAILY PRN PO CONSTIPATION; Start 06/21/18 at 20:15 Multi-Ingredient Ointment (Analgesic [place]) 1 gerri PRN QID PRN TP MUSCLE PAIN; Start 06/21/18 at 20:15 Oxybutynin Chloride (Ditropan) 2.5 mg BID PO Last administered on 07/27/18at 09 :38; Start 06/21/18 at 21:00 Potassium Chloride (Klor-Con) 20 meq DAILY PO Last administered on 07/27/18at 09:37; Start 06/22/18 at 09:00 Tamsulosin HCl (Flomax) 0.8 mg DAILY PO Last administered on 07/27/18at 09:38; Start 06/22/18 at 09:00 Amlodipine Besylate (Norvasc) 10 mg DAILY PO Last administered on 07/27/18at 09 :38; Start 06/22/18 at 09:00 Baclofen (Lioresal) 10 mg QID PO Last administered on 07/07/18at 19:36; Start 06/21/18 at 21:00; Stop 07/08/18 at 11:48; Status DC Bisacodyl (Dulcolax Supp) 10 mg PRN DAILY PRN [place] CONSTIPATION; Start 06/21/18 at 20:45 Buspirone HCl (Buspar) 10 mg TID PO Last administered on 07/27/18at 12:54; Start 06/21/18 at 21:00 Divalproex Sodium (Depakote Er) 1,500 mg HS PO Last administered on 07/26/18at 20:26; Start 06/21/18 at 21:00 Non-Formulary Medication (Gabapentin ) 800 mg QID PO ; Start 06/21/18 at 21:00 ; Status UNV Levothyroxine Sodium (Synthroid) 50 mcg DAILY06 PO Last administered on at 06:46; Start 06/22/18 at 06:00 Multivitamins/ Calcium (Thera-M Plus) 1 tab DAILY PO Last administered on 07/27at 09:38; Start 06/22/18 at 09:00 Olanzapine (ZyPREXA ZYDIS) 2.5 mg PRN Q2HR PRN PO PSYCHOSIS Last administered on 07/12/18at 10:17; Start 06/21/18 at 20:45 Olanzapine (ZyPREXA) 5 mg BID PO Last administered on 06/23/18at 08:47; Start 06/21/18 at 21:00; Stop 06/23/18 at 17:06; Status DC Risperidone (RisperDAL) 1.5 mg HS PO Last administered on 06/23/18at 19:45; Start 06/21/18 at 21:00; Stop 06/24/18 at 11:06; Status DC Trazodone HCl (Desyrel) 50 mg PRN QHS PRN PO INSOMNIA Last administered on 07/11 20:19; Start 06/21/18 at 21:00 Nicotine (Nicoderm Cq 7mg) 1 patch PRN DAILY PRN TD SMOKING CESSATION; Start 06/21/18 at 23:30; Stop 07/09/18 at 05:39; Status DC Vitamin D (Vitamin D3) 50,000 unit WEEKLY PO Last administered on 07/21/18at 09 :31; Start 06/23/18 at 16:30 Olanzapine (ZyPREXA) 5 mg DAILY PO Last administered on 06/25/18at 08:04; Start 06/24/18 at 09:00; Stop 06/26/18 at 00:00; Status DC Risperidone (RisperDAL) 1.75 mg HS PO Last administered on 07/06/18at 20:08; Start 06/24/18 at 21:00; Stop 07/07/18 at 12:40; Status DC Risperidone (RisperDAL) 2 mg HS PO Last administered on 07/26/18at 20:27; Start 07/07/18 at 21:00 Gabapentin (Neurontin) 600 mg QID PO Last administered on 07/27/18at 17:26; Start 07/08/18 at 21:00 Nicotine (Nicoderm Cq 21mg) 1 patch DAILY TD Last administered on 07/27/18at 09 :36; Start 07/09/18 at 09:00 Clozapine (Clozaril) 25 mg DAILY PO Last administered on 07/27/18at 09:38; Start 07/13/18 at 09:00; Stop 07/27/18 at 16:52; Status DC Vitamin D (Vitamin D3) 50,000 unit WEEKLY PO ; Start 07/24/18 at 09:00; Status Cancel Clozapine (Clozaril) 50 mg DAILY PO ; Start 07/28/18 at 09:00 Active Scripts Active Reported Zyprexa (Olanzapine) 5 Mg Tablet 5 Mg PO BID NICODERM CQ 7mg (Nicotine) 1 Each Patch.td24 1 Patch TD PRN DAILY PRN Trazodone Hcl 50 Mg Tablet 50 Mg PO PRN QHS PRN Risperdal (Risperidone) 1 Mg Tablet 1.5 Mg PO HS Analgesic [place] (Methyl Salicylate/Menthol) 28 Gm Oint...g. 1 Gerri TP PRN QID PRN Milk Of Magnesia (Magnesium Hydroxide) 400 Mg/5 Ml Oral.susp 400 Mg PO PRN DAILY PRN Mag-Al Plus Xs Suspension (Mag Hydrox/Al Hydrox/Simeth) 30 Ml Oral.susp 15 Ml PO PRN AFTMEALHC PRN Buspirone Hcl 10 Mg Tablet 10 Mg PO TID Baclofen 10 Mg Tablet 10 Mg PO QID Gabapentin 100 Mg Capsule 100 Mg PO QID Gabapentin 800 Mg Tablet 800 Mg PO QID Levothyroxine Sodium 50 Mcg Tablet 50 Mcg PO DAILYAC Klonopin (Clonazepam) 0.5 Mg Tablet 1 Mg PO BID Norvasc (Amlodipine Besylate) 10 Mg Tablet 10 Mg PO DAILY Oxybutynin Chloride 5 Mg Tablet 2.5 Mg PO BID Depakote Er (Divalproex Sodium) 500 Mg Tab.er.24h 1,500 Mg PO HS Klor-Con M20 (Potassium Chloride) 20 Meq Tab.er.prt 20 Meq PO DAILY Cymbalta (Duloxetine Hcl) 60 Mg Capsule.dr 60 Mg PO DAILY Multivitamin with Iron Tablet (Multivitamin/Iron/Folic Acid) 1 Each Tablet 1 Tab PO DAILY Flomax (Tamsulosin Hcl) 0.4 Mg Cap.er.24h 0.8 Mg PO DAILY Olanzapine 5 Mg Tablet 2.5 Mg PO PRN Q2HR PRN MDD 10mg/ 24 hrs Remeron (Mirtazapine) 15 Mg Tablet 7.5 Mg PO HS Bisacodyl 10 Mg Supp.rect 10 Mg RC PRN DAILY PRN Tylenol (Acetaminophen) 325 Mg Tablet 650 Mg PO PRN Q6HRS PRN I have reviewed the current psychotropics carefully including drug interactions. Risk benefit ratio favors no change other than as noted in my dictated progress note. Diagnosis: Problems: (1) Anxiety disorder (2) Impulse control disorder (3) Schizophrenia, paranoid, chronic with acute exacerbation CATHY EMERY MD Jul 27, 2018 19:43
[2018-07-27] MEDS: risperiDONE 2 MG TABLET. PO SCH (20:26)
[2018-07-27] MEDS: DIVALPROEX ER 500 MG TAB.ER.24H PO SCH (20:26)
--- NOTE | 2018-07-28 01:25 | PN ---
DATE: 07/26/2018 PSYCHIATRIC PROGRESS NOTE This late entry 07/26/2018 covers elements not covered in my initial note. SUBJECTIVE: I met with the patient in the evening in his room and discussed with Dr. Nunez who covered for me over the past week or so. The patient slept 6-1/4 hours previous evening, somewhat withdrawn, asking staff for urinal even though he went to the restroom and fell. He has been fixated on going to the [facility] where he can smoke. REVIEW OF SYSTEMS: Ambulation impaired with walker. No CV, , pulmonary, eye, ENT system symptoms on review. MENTAL STATUS EXAM: Oriented to himself, situations. Speech coherent, often responses monosyllabic. Abstraction fair, computation impaired, language function intact. Mood and affect withdrawn. LABORATORY DATA: Reviewed. IMPRESSION: Schizoaffective disorder, bipolar type, mixed with psychotic features; anxiety disorder, unspecified; impulse control disorder, unspecified. PLAN: No change from initial note, may need to increase Clozaril gradually post results of WBC and absolute neutrophil counts are received. MAN Ty EMERY MD DR: SARINA/nilda JOB#: [id number] / [id number]
[2018-07-28] MEDS: LEVOTHYROXINE 50 MCG TABLET PO SCH (05:28)
[2018-07-28 05:54] VITALS: BP 104/71
[2018-07-28] MEDS: POTASSIUM CHLORIDE 20 MEQ TABLET.ER. PO SCH (09:23)
[2018-07-28] MEDS: TAMSULOSIN 0.4 MG CAP.ER.24H. PO SCH (09:23)
[2018-07-28] MEDS: amLODIPine BESYLATE 10 MG TABLET PO SCH (09:23)
[2018-07-28] MEDS: clonazePAM 0.5 MG TABLET PO SCH ×2 (09:23→20:07)
[2018-07-28] MEDS: busPIRone 10 MG TABLET. PO SCH ×3 (09:23→20:03)
[2018-07-28] MEDS: MULTIVITAMIN with MINERAL TABLET. PO SCH (09:23)
[2018-07-28] MEDS: GABAPENTIN 300 MG CAPSULE. PO SCH ×4 (09:23→20:05)
[2018-07-28] MEDS: OXYBUTYNIN CHLORIDE 5 MG TABLET PO SCH ×2 (09:24→20:04)
[2018-07-28] MEDS: cloZAPine 25 MG TABLET PO SCH (09:25)
[2018-07-28] MEDS: CHOLECALCIFEROL (VITAMIN D3) 50,000 UNIT CAPSULE PO SCH (09:25)
[2018-07-28] MEDS: NICOTINE 21MG PATCH. TD SCH (09:26)
[2018-07-28 16:06] VITALS: BP 99/72
--- NOTE | 2018-07-28 20:01 | PDOC ---
Exam Note: Nguyễn Note: Please also refer to the separate dictated note~for this date of service dictated separately.~Patient seen individually. Discussed the patient with Nursing staff reviewed the chart.~Reviewed interim history and current functioning. Reviewed vital signs,~Labs/ Radiology~and current medications noted below. Continue current treatment with the changes noted in the dictated addendum note Assessment: Vital Signs: Vital Signs Date Time Temp Pulse Resp B/P (MAP) Pulse Ox O2 Delivery O2 Flow Rate FiO2 07/28/18 16:06 97.6 95 20 99/72 (81) 96 07/25/18 05:47 Room Air I&O Intake and Output 07/28/18 07:00 Intake Total 1200 ml Balance 1200 ml Intake Oral 1200 ml Current Medications: Meds: Current Medications Acetaminophen (Tylenol) 650 mg PRN Q6HRS PRN PO PAIN / TEMP Last administered on 07/09/18at 22:06; Start 06/21/18 at 20:15 Clonazepam (KlonoPIN) 1 mg BID PO Last administered on 07/28/18at 09:23; Start 06/21/18 at 21:00 Gabapentin (Neurontin) 900 mg QID PO Last administered on 07/08/18at 16:58; Start 06/21/18 at 21:00; Stop 07/08/18 at 17:47; Status DC Al Hydroxide/Mg Hydroxide (Mylanta Plus Xs) 15 ml PRN AFTMEALHC PRN PO GI SYMPTOMS; Start 06/21/18 at 20:15 Magnesium Hydroxide (Milk Of Magnesia) 400 mg PRN DAILY PRN PO CONSTIPATION; Start 06/21/18 at 20:15 Multi-Ingredient Ointment (Analgesic [place]) 1 gerri PRN QID PRN TP MUSCLE PAIN; Start 06/21/18 at 20:15 Oxybutynin Chloride (Ditropan) 2.5 mg BID PO Last administered on 07/28/18at 09 :24; Start 06/21/18 at 21:00 Potassium Chloride (Klor-Con) 20 meq DAILY PO Last administered on 07/28/18at 09:23; Start 06/22/18 at 09:00 Tamsulosin HCl (Flomax) 0.8 mg DAILY PO Last administered on 07/28/18at 09:23; Start 06/22/18 at 09:00 Amlodipine Besylate (Norvasc) 10 mg DAILY PO Last administered on 07/28/18 09 :23; Start 06/22/18 at 09:00 Baclofen (Lioresal) 10 mg QID PO Last administered on 07/07/18at 19:36; Start 06/21/18 at 21:00; Stop 07/08/18 at 11:48; Status DC Bisacodyl (Dulcolax Supp) 10 mg PRN DAILY PRN [place] CONSTIPATION; Start 06/21/18 at 20:45 Buspirone HCl (Buspar) 10 mg TID PO Last administered on 07/28/18at 12:49; Start 06/21/18 at 21:00 Divalproex Sodium (Depakote Er) 1,500 mg HS PO Last administered on 07/27/18 20:26; Start 06/21/18 at 21:00 Non-Formulary Medication (Gabapentin ) 800 mg QID PO ; Start 06/21/18 at 21:00 ; Status UNV Levothyroxine Sodium (Synthroid) 50 mcg DAILY06 PO Last administered on at 05:28; Start 06/22/18 at 06:00 Multivitamins/ Calcium (Thera-M Plus) 1 tab DAILY PO Last administered on 07/28 09:23; Start 06/22/18 at 09:00 Olanzapine (ZyPREXA ZYDIS) 2.5 mg PRN Q2HR PRN PO PSYCHOSIS Last administered on 07/27/18 20:29; Start 06/21/18 at 20:45 Olanzapine (ZyPREXA) 5 mg BID PO Last administered on 06/23/18at 08:47; Start 06/21/18 at 21:00; Stop 06/23/18 at 17:06; Status DC Risperidone (RisperDAL) 1.5 mg HS PO Last administered on 06/23/18 19:45; Start 06/21/18 at 21:00; Stop 06/24/18 at 11:06; Status DC Trazodone HCl (Desyrel) 50 mg PRN QHS PRN PO INSOMNIA Last administered on 07/11 20:19; Start 06/21/18 at 21:00 Nicotine (Nicoderm Cq 7mg) 1 patch PRN DAILY PRN TD SMOKING CESSATION; Start 06/21/18 at 23:30; Stop 07/09/18 at 05:39; Status DC Vitamin D (Vitamin D3) 50,000 unit WEEKLY PO Last administered on 07/28/18at 09 :25; Start 06/23/18 at 16:30 Olanzapine (ZyPREXA) 5 mg DAILY PO Last administered on 06/25/18at 08:04; Start 06/24/18 at 09:00; Stop 06/26/18 at 00:00; Status DC Risperidone (RisperDAL) 1.75 mg HS PO Last administered on 07/06/18at 20:08; Start 06/24/18 at 21:00; Stop 07/07/18 at 12:40; Status DC Risperidone (RisperDAL) 2 mg HS PO Last administered on 07/27/18at 20:26; Start 07/07/18 at 21:00 Gabapentin (Neurontin) 600 mg QID PO Last administered on 07/28/18at 18:16; Start 07/08/18 at 21:00 Nicotine (Nicoderm Cq 21mg) 1 patch DAILY TD Last administered on 07/28/18at 09 :26; Start 07/09/18 at 09:00 Clozapine (Clozaril) 25 mg DAILY PO Last administered on 07/27/18at 09:38; Start 07/13/18 at 09:00; Stop 07/27/18 at 16:52; Status DC Vitamin D (Vitamin D3) 50,000 unit WEEKLY PO ; Start 07/24/18 at 09:00; Status Cancel Clozapine (Clozaril) 50 mg DAILY PO Last administered on 07/28/18at 09:25; Start 07/28/18 at 09:00 Active Scripts Active Reported Zyprexa (Olanzapine) 5 Mg Tablet 5 Mg PO BID NICODERM CQ 7mg (Nicotine) 1 Each Patch.td24 1 Patch TD PRN DAILY PRN Trazodone Hcl 50 Mg Tablet 50 Mg PO PRN QHS PRN Risperdal (Risperidone) 1 Mg Tablet 1.5 Mg PO HS Analgesic [place] (Methyl Salicylate/Menthol) 28 Gm Oint...g. 1 Gerri TP PRN QID PRN Milk Of Magnesia (Magnesium Hydroxide) 400 Mg/5 Ml Oral.susp 400 Mg PO PRN DAILY PRN Mag-Al Plus Xs Suspension (Mag Hydrox/Al Hydrox/Simeth) 30 Ml Oral.susp 15 Ml PO PRN AFTMEALHC PRN Buspirone Hcl 10 Mg Tablet 10 Mg PO TID Baclofen 10 Mg Tablet 10 Mg PO QID Gabapentin 100 Mg Capsule 100 Mg PO QID Gabapentin 800 Mg Tablet 800 Mg PO QID Levothyroxine Sodium 50 Mcg Tablet 50 Mcg PO DAILYAC Klonopin (Clonazepam) 0.5 Mg Tablet 1 Mg PO BID Norvasc (Amlodipine Besylate) 10 Mg Tablet 10 Mg PO DAILY Oxybutynin Chloride 5 Mg Tablet 2.5 Mg PO BID Depakote Er (Divalproex Sodium) 500 Mg Tab.er.24h 1,500 Mg PO HS Klor-Con M20 (Potassium Chloride) 20 Meq Tab.er.prt 20 Meq PO DAILY Cymbalta (Duloxetine Hcl) 60 Mg Capsule.dr 60 Mg PO DAILY Multivitamin with Iron Tablet (Multivitamin/Iron/Folic Acid) 1 Each Tablet 1 Tab PO DAILY Flomax (Tamsulosin Hcl) 0.4 Mg Cap.er.24h 0.8 Mg PO DAILY Olanzapine 5 Mg Tablet 2.5 Mg PO PRN Q2HR PRN MDD 10mg/ 24 hrs Remeron (Mirtazapine) 15 Mg Tablet 7.5 Mg PO HS Bisacodyl 10 Mg Supp.rect 10 Mg RC PRN DAILY PRN Tylenol (Acetaminophen) 325 Mg Tablet 650 Mg PO PRN Q6HRS PRN I have reviewed the current psychotropics carefully including drug interactions. Risk benefit ratio favors no change other than as noted in my dictated progress note. Diagnosis: Problems: (1) Schizoaffective disorder (2) Depression (3) Anxiety disorder (4) Impulse control disorder (5) Schizophrenia, paranoid, chronic with acute exacerbation CATHY EMERY MD Jul 28, 2018 20:01
[2018-07-28] MEDS: DIVALPROEX ER 500 MG TAB.ER.24H PO SCH (20:05)
[2018-07-28] MEDS: risperiDONE 2 MG TABLET. PO SCH (20:05)
--- NOTE | 2018-07-28 21:23 | PN ---
DATE: 07/27/2018 This is a late entry for 07/27/2018 and covers elements not covered in my initial note. SUBJECTIVE: I met with the patient in the evening. The patient remains somewhat withdrawn, obsessing about wanting to go to the [facility], quite agitated, slammed his meds on the walker, threw his medications on the floor, later apologized as I processed with him. REVIEW OF SYSTEMS: Ambulation impaired, with walker. No CV, , pulmonary, eye system symptoms on review. Reliability varies. MENTAL STATUS EXAM: Oriented to himself and situation. Speech has some latency, coherent. Abstraction fair, computation impaired, language function intact, attention span short. Mood and affect remains withdrawn. LABORATORY DATA: Reviewed. IMPRESSION: Schizoaffective disorder, bipolar type, mixed with psychotic features. Rest unchanged. PLAN: The patient's absolute neutrophil count was unremarkable. We will increase the Clozaril to 50 mg at bedtime. Continue rest unchanged including Depakote, BuSpar, Klonopin, Risperdal, and Neurontin that he is taking. MAN Ty EMERY MD DR: SARINA/nilda JOB#: [id number] / [id number]
[2018-07-29] MEDS: LEVOTHYROXINE 50 MCG TABLET PO SCH (05:12)
[2018-07-29 05:40] VITALS: BP 135/84
[2018-07-29] MEDS: OXYBUTYNIN CHLORIDE 5 MG TABLET PO SCH ×2 (08:28→19:33)
[2018-07-29] MEDS: POTASSIUM CHLORIDE 20 MEQ TABLET.ER. PO SCH (08:28)
[2018-07-29] MEDS: busPIRone 10 MG TABLET. PO SCH ×3 (08:28→19:33)
[2018-07-29] MEDS: TAMSULOSIN 0.4 MG CAP.ER.24H. PO SCH (08:31)
[2018-07-29] MEDS: clonazePAM 0.5 MG TABLET PO SCH ×2 (08:31→19:35)
[2018-07-29] MEDS: amLODIPine BESYLATE 10 MG TABLET PO SCH (08:31)
[2018-07-29] MEDS: GABAPENTIN 300 MG CAPSULE. PO SCH ×4 (08:31→19:34)
[2018-07-29] MEDS: MULTIVITAMIN with MINERAL TABLET. PO SCH (08:32)
[2018-07-29] MEDS: NICOTINE 21MG PATCH. TD SCH (08:32)
[2018-07-29] MEDS: cloZAPine 25 MG TABLET PO SCH (08:41)
[2018-07-29 15:42] VITALS: BP 137/86
[2018-07-29] MEDS: risperiDONE 2 MG TABLET. PO SCH (19:33)
[2018-07-29] MEDS: DIVALPROEX ER 500 MG TAB.ER.24H PO SCH (19:34)
--- NOTE | 2018-07-29 22:58 | PDOC ---
Exam Note: Nguyễn Note: Please also refer to the separate dictated note~for this date of service dictated separately.~Patient seen individually. Discussed the patient with Nursing staff reviewed the chart.~Reviewed interim history and current functioning. Reviewed vital signs,~Labs/ Radiology~and current medications noted below. Continue current treatment with the changes noted in the dictated addendum note Assessment: Vital Signs: Vital Signs Date Time Temp Pulse Resp B/P (MAP) Pulse Ox O2 Delivery O2 Flow Rate FiO2 07/29/18 15:42 98.0 94 19 137/86 (103) 97 Room Air I&O Intake and Output 07/29/18 07:01 Intake Total 720 ml Balance 720 ml Intake Oral 720 ml # Voids 1 Current Medications: Meds: Current Medications Acetaminophen (Tylenol) 650 mg PRN Q6HRS PRN PO PAIN / TEMP Last administered on 07/09/18at 22:06; Start 06/21/18 at 20:15 Clonazepam (KlonoPIN) 1 mg BID PO Last administered on 07/29/18at 19:35; Start 06/21/18 at 21:00 Gabapentin (Neurontin) 900 mg QID PO Last administered on 07/08/18at 16:58; Start 06/21/18 at 21:00; Stop 07/08/18 at 17:47; Status DC Al Hydroxide/Mg Hydroxide (Mylanta Plus Xs) 15 ml PRN AFTMEALHC PRN PO GI SYMPTOMS; Start 06/21/18 at 20:15 Magnesium Hydroxide (Milk Of Magnesia) 400 mg PRN DAILY PRN PO CONSTIPATION; Start 06/21/18 at 20:15 Multi-Ingredient Ointment (Analgesic [place]) 1 gerri PRN QID PRN TP MUSCLE PAIN; Start 06/21/18 at 20:15 Oxybutynin Chloride (Ditropan) 2.5 mg BID PO Last administered on 07/29/18at 19 :33; Start 06/21/18 at 21:00 Potassium Chloride (Klor-Con) 20 meq DAILY PO Last administered on 07/29/18at 08:28; Start 06/22/18 at 09:00 Tamsulosin HCl (Flomax) 0.8 mg DAILY PO Last administered on 07/29/18at 08:31; Start 06/22/18 at 09:00 Amlodipine Besylate (Norvasc) 10 mg DAILY PO Last administered on 07/29/18 08 :31; Start 06/22/18 at 09:00 Baclofen (Lioresal) 10 mg QID PO Last administered on 07/07/18at 19:36; Start 06/21/18 at 21:00; Stop 07/08/18 at 11:48; Status DC Bisacodyl (Dulcolax Supp) 10 mg PRN DAILY PRN [place] CONSTIPATION; Start 06/21/18 at 20:45 Buspirone HCl (Buspar) 10 mg TID PO Last administered on 07/29/18at 19:33; Start 06/21/18 at 21:00 Divalproex Sodium (Depakote Er) 1,500 mg HS PO Last administered on 07/29/18 19:34; Start 06/21/18 at 21:00 Non-Formulary Medication (Gabapentin ) 800 mg QID PO ; Start 06/21/18 at 21:00 ; Status UNV Levothyroxine Sodium (Synthroid) 50 mcg DAILY06 PO Last administered on at 05:12; Start 06/22/18 at 06:00 Multivitamins/ Calcium (Thera-M Plus) 1 tab DAILY PO Last administered on 07/29at 08:32; Start 06/22/18 at 09:00 Olanzapine (ZyPREXA ZYDIS) 2.5 mg PRN Q2HR PRN PO PSYCHOSIS Last administered on 07/27/18at 20:29; Start 06/21/18 at 20:45 Olanzapine (ZyPREXA) 5 mg BID PO Last administered on 06/23/18at 08:47; Start 06/21/18 at 21:00; Stop 06/23/18 at 17:06; Status DC Risperidone (RisperDAL) 1.5 mg HS PO Last administered on 06/23/18at 19:45; Start 06/21/18 at 21:00; Stop 06/24/18 at 11:06; Status DC Trazodone HCl (Desyrel) 50 mg PRN QHS PRN PO INSOMNIA Last administered on 07/11 20:19; Start 06/21/18 at 21:00 Nicotine (Nicoderm Cq 7mg) 1 patch PRN DAILY PRN TD SMOKING CESSATION; Start 06/21/18 at 23:30; Stop 07/09/18 at 05:39; Status DC Vitamin D (Vitamin D3) 50,000 unit WEEKLY PO Last administered on 07/28/18at 09 :25; Start 06/23/18 at 16:30 Olanzapine (ZyPREXA) 5 mg DAILY PO Last administered on 06/25/18at 08:04; Start 06/24/18 at 09:00; Stop 06/26/18 at 00:00; Status DC Risperidone (RisperDAL) 1.75 mg HS PO Last administered on 07/06/18at 20:08; Start 06/24/18 at 21:00; Stop 07/07/18 at 12:40; Status DC Risperidone (RisperDAL) 2 mg HS PO Last administered on 07/29/18at 19:33; Start 07/07/18 at 21:00 Gabapentin (Neurontin) 600 mg QID PO Last administered on 07/29/18at 19:34; Start 07/08/18 at 21:00 Nicotine (Nicoderm Cq 21mg) 1 patch DAILY TD Last administered on 07/29/18at 08 :32; Start 07/09/18 at 09:00 Clozapine (Clozaril) 25 mg DAILY PO Last administered on 07/27/18at 09:38; Start 07/13/18 at 09:00; Stop 07/27/18 at 16:52; Status DC Vitamin D (Vitamin D3) 50,000 unit WEEKLY PO ; Start 07/24/18 at 09:00; Status Cancel Clozapine (Clozaril) 50 mg DAILY PO Last administered on 07/29/18at 08:41; Start 07/28/18 at 09:00 Active Scripts Active Reported Zyprexa (Olanzapine) 5 Mg Tablet 5 Mg PO BID NICODERM CQ 7mg (Nicotine) 1 Each Patch.td24 1 Patch TD PRN DAILY PRN Trazodone Hcl 50 Mg Tablet 50 Mg PO PRN QHS PRN Risperdal (Risperidone) 1 Mg Tablet 1.5 Mg PO HS Analgesic [place] (Methyl Salicylate/Menthol) 28 Gm Oint...g. 1 Gerri TP PRN QID PRN Milk Of Magnesia (Magnesium Hydroxide) 400 Mg/5 Ml Oral.susp 400 Mg PO PRN DAILY PRN Mag-Al Plus Xs Suspension (Mag Hydrox/Al Hydrox/Simeth) 30 Ml Oral.susp 15 Ml PO PRN AFTMEALHC PRN Buspirone Hcl 10 Mg Tablet 10 Mg PO TID Baclofen 10 Mg Tablet 10 Mg PO QID Gabapentin 100 Mg Capsule 100 Mg PO QID Gabapentin 800 Mg Tablet 800 Mg PO QID Levothyroxine Sodium 50 Mcg Tablet 50 Mcg PO DAILYAC Klonopin (Clonazepam) 0.5 Mg Tablet 1 Mg PO BID Norvasc (Amlodipine Besylate) 10 Mg Tablet 10 Mg PO DAILY Oxybutynin Chloride 5 Mg Tablet 2.5 Mg PO BID Depakote Er (Divalproex Sodium) 500 Mg Tab.er.24h 1,500 Mg PO HS Klor-Con M20 (Potassium Chloride) 20 Meq Tab.er.prt 20 Meq PO DAILY Cymbalta (Duloxetine Hcl) 60 Mg Capsule.dr 60 Mg PO DAILY Multivitamin with Iron Tablet (Multivitamin/Iron/Folic Acid) 1 Each Tablet 1 Tab PO DAILY Flomax (Tamsulosin Hcl) 0.4 Mg Cap.er.24h 0.8 Mg PO DAILY Olanzapine 5 Mg Tablet 2.5 Mg PO PRN Q2HR PRN MDD 10mg/ 24 hrs Remeron (Mirtazapine) 15 Mg Tablet 7.5 Mg PO HS Bisacodyl 10 Mg Supp.rect 10 Mg RC PRN DAILY PRN Tylenol (Acetaminophen) 325 Mg Tablet 650 Mg PO PRN Q6HRS PRN I have reviewed the current psychotropics carefully including drug interactions. Risk benefit ratio favors no change other than as noted in my dictated progress note. Diagnosis: Problems: (1) Depression (2) Schizoaffective disorder (3) Anxiety disorder (4) Impulse control disorder (5) Schizophrenia, paranoid, chronic with acute exacerbation CATHY EMERY MD Jul 29, 2018 22:58
[2018-07-30] MEDS: LEVOTHYROXINE 50 MCG TABLET PO SCH (05:53)
[2018-07-30 06:32] VITALS: BP 120/77
[2018-07-30] MEDS: amLODIPine BESYLATE 10 MG TABLET PO SCH (08:52)
[2018-07-30] MEDS: OXYBUTYNIN CHLORIDE 5 MG TABLET PO SCH ×2 (08:52→19:58)
[2018-07-30] MEDS: TAMSULOSIN 0.4 MG CAP.ER.24H. PO SCH (08:53)
[2018-07-30] MEDS: busPIRone 10 MG TABLET. PO SCH ×3 (08:53→19:58)
[2018-07-30] MEDS: POTASSIUM CHLORIDE 20 MEQ TABLET.ER. PO SCH (08:53)
[2018-07-30] MEDS: MULTIVITAMIN with MINERAL TABLET. PO SCH (08:54)
[2018-07-30] MEDS: NICOTINE 21MG PATCH. TD SCH (08:54)
[2018-07-30] MEDS: cloZAPine 25 MG TABLET PO SCH (08:54)
[2018-07-30] MEDS: GABAPENTIN 300 MG CAPSULE. PO SCH ×4 (08:54→19:57)
[2018-07-30] MEDS: clonazePAM 0.5 MG TABLET PO SCH ×2 (08:55→19:58)
[2018-07-30 15:25] VITALS: BP 122/83
[2018-07-30] MEDS: DIVALPROEX ER 500 MG TAB.ER.24H PO SCH (19:58)
[2018-07-30] MEDS: risperiDONE 2 MG TABLET. PO SCH (19:58)
[2018-07-30 22:30] LABS: BILIRUBIN,URINE NEG (NEG); CLARITY,URINE CLEAR; COLOR,URINE YELLOW; GLUCOSE,URINE NEG (NEG)
[2018-07-30 22:31] LABS: BACTERIA,URINE 0 /HPF (0-FEW); NITRITE,URINE NEG (NEG); RBC,URINE OCC /HPF (0-2); UROBILINOGEN,URINE 0.2 mg/dL (0.2 mg/dL); WBC,URINE RARE /HPF (0-4)
--- NOTE | 2018-07-30 22:48 | PDOC ---
Exam Note: Nguyễn Note: Please also refer to the separate dictated note~for this date of service dictated separately.~Patient seen individually. Discussed the patient with Nursing staff reviewed the chart.~Reviewed interim history and current functioning. Reviewed vital signs,~Labs/ Radiology~and current medications noted below. Continue current treatment with the changes noted in the dictated addendum note Assessment: Vital Signs: Vital Signs Date Time Temp Pulse Resp B/P (MAP) Pulse Ox O2 Delivery O2 Flow Rate FiO2 07/30/18 15:25 97.8 94 20 122/83 (96) 94 07/30/18 06:32 Room Air I&O Intake and Output 07/30/18 07:01 Intake Total 1325 ml Balance 1325 ml Intake Oral 1325 ml # Bowel Movements 1 Labs: Laboratory Tests Test 07/30/18 20:18 Urine Collection Type Unknown Urine Color Yellow Urine Clarity Clear Urine pH 6.5 Urine Specific [place] 1.015 Urine Protein Neg (NEG-TRACE) Urine Glucose (UA) Neg mg/dL (NEG) Urine Ketones (Stick) Neg mg/dL (NEG) Urine Blood Neg (NEG) Urine Nitrite Neg (NEG) Urine Bilirubin Neg (NEG) Urine Urobilinogen Dipstick 0.2 mg/dL (0.2 mg/dL) Urine Leukocyte Esterase Neg (NEG) Urine RBC Occ /HPF (0-2) Urine WBC Rare /HPF (0-4) Urine Squamous Epithelial Cells None /LPF Urine Bacteria 0 /HPF (0-FEW) Current Medications: Meds: Current Medications Acetaminophen (Tylenol) 650 mg PRN Q6HRS PRN PO PAIN / TEMP Last administered on 07/09/18at 22:06; Start 06/21/18 at 20:15 Clonazepam (KlonoPIN) 1 mg BID PO Last administered on 07/30/18at 19:58; Start 06/21/18 at 21:00 Gabapentin (Neurontin) 900 mg QID PO Last administered on 07/08/18at 16:58; Start 06/21/18 at 21:00; Stop 07/08/18 at 17:47; Status DC Al Hydroxide/Mg Hydroxide (Mylanta Plus Xs) 15 ml PRN AFTMEALHC PRN PO GI SYMPTOMS; Start 06/21/18 at 20:15 Magnesium Hydroxide (Milk Of Magnesia) 400 mg PRN DAILY PRN PO CONSTIPATION; Start 06/21/18 at 20:15 Multi-Ingredient Ointment (Analgesic [place]) 1 gerri PRN QID PRN TP MUSCLE PAIN; Start 06/21/18 at 20:15 Oxybutynin Chloride (Ditropan) 2.5 mg BID PO Last administered on 07/30/18 19 :58; Start 06/21/18 at 21:00 Potassium Chloride (Klor-Con) 20 meq DAILY PO Last administered on 07/30/18 08:53; Start 06/22/18 at 09:00 Tamsulosin HCl (Flomax) 0.8 mg DAILY PO Last administered on 07/30/18 08:53; Start 06/22/18 at 09:00 Amlodipine Besylate (Norvasc) 10 mg DAILY PO Last administered on 07/30/18 08 :52; Start 06/22/18 at 09:00 Baclofen (Lioresal) 10 mg QID PO Last administered on 07/07/18at 19:36; Start 06/21/18 at 21:00; Stop 07/08/18 at 11:48; Status DC Bisacodyl (Dulcolax Supp) 10 mg PRN DAILY PRN [place] CONSTIPATION; Start 06/21/18 at 20:45 Buspirone HCl (Buspar) 10 mg TID PO Last administered on 07/30/18 19:58; Start 06/21/18 at 21:00 Divalproex Sodium (Depakote Er) 1,500 mg HS PO Last administered on 07/30/18at 19:58; Start 06/21/18 at 21:00 Non-Formulary Medication (Gabapentin ) 800 mg QID PO ; Start 06/21/18 at 21:00 ; Status UNV Levothyroxine Sodium (Synthroid) 50 mcg DAILY06 PO Last administered on 05:53; Start 06/22/18 at 06:00 Multivitamins/ Calcium (Thera-M Plus) 1 tab DAILY PO Last administered on 07/30at 08:54; Start 06/22/18 at 09:00 Olanzapine (ZyPREXA ZYDIS) 2.5 mg PRN Q2HR PRN PO PSYCHOSIS Last administered on 07/27/18at 20:29; Start 06/21/18 at 20:45 Olanzapine (ZyPREXA) 5 mg BID PO Last administered on 06/23/18at 08:47; Start 06/21/18 at 21:00; Stop 06/23/18 at 17:06; Status DC Risperidone (RisperDAL) 1.5 mg HS PO Last administered on 06/23/18at 19:45; Start 06/21/18 at 21:00; Stop 06/24/18 at 11:06; Status DC Trazodone HCl (Desyrel) 50 mg PRN QHS PRN PO INSOMNIA Last administered on 07/11at 20:19; Start 06/21/18 at 21:00 Nicotine (Nicoderm Cq 7mg) 1 patch PRN DAILY PRN TD SMOKING CESSATION; Start 06/21/18 at 23:30; Stop 07/09/18 at 05:39; Status DC Vitamin D (Vitamin D3) 50,000 unit WEEKLY PO Last administered on 07/28/18at 09 :25; Start 06/23/18 at 16:30 Olanzapine (ZyPREXA) 5 mg DAILY PO Last administered on 06/25/18at 08:04; Start 06/24/18 at 09:00; Stop 06/26/18 at 00:00; Status DC Risperidone (RisperDAL) 1.75 mg HS PO Last administered on 07/06/18at 20:08; Start 06/24/18 at 21:00; Stop 07/07/18 at 12:40; Status DC Risperidone (RisperDAL) 2 mg HS PO Last administered on 07/30/18at 19:58; Start 07/07/18 at 21:00 Gabapentin (Neurontin) 600 mg QID PO Last administered on 07/30/18at 19:57; Start 07/08/18 at 21:00 Nicotine (Nicoderm Cq 21mg) 1 patch DAILY TD Last administered on 07/30/18at 08 :54; Start 07/09/18 at 09:00 Clozapine (Clozaril) 25 mg DAILY PO Last administered on 07/27/18at 09:38; Start 07/13/18 at 09:00; Stop 07/27/18 at 16:52; Status DC Vitamin D (Vitamin D3) 50,000 unit WEEKLY PO ; Start 07/24/18 at 09:00; Status Cancel Clozapine (Clozaril) 50 mg DAILY PO Last administered on 07/30/18at 08:54; Start 07/28/18 at 09:00 Active Scripts Active Reported Zyprexa (Olanzapine) 5 Mg Tablet 5 Mg PO BID NICODERM CQ 7mg (Nicotine) 1 Each Patch.td24 1 Patch TD PRN DAILY PRN Trazodone Hcl 50 Mg Tablet 50 Mg PO PRN QHS PRN Risperdal (Risperidone) 1 Mg Tablet 1.5 Mg PO HS Analgesic [place] (Methyl Salicylate/Menthol) 28 Gm Oint...g. 1 Gerri TP PRN QID PRN Milk Of Magnesia (Magnesium Hydroxide) 400 Mg/5 Ml Oral.susp 400 Mg PO PRN DAILY PRN Mag-Al Plus Xs Suspension (Mag Hydrox/Al Hydrox/Simeth) 30 Ml Oral.susp 15 Ml PO PRN AFTMEALHC PRN Buspirone Hcl 10 Mg Tablet 10 Mg PO TID Baclofen 10 Mg Tablet 10 Mg PO QID Gabapentin 100 Mg Capsule 100 Mg PO QID Gabapentin 800 Mg Tablet 800 Mg PO QID Levothyroxine Sodium 50 Mcg Tablet 50 Mcg PO DAILYAC Klonopin (Clonazepam) 0.5 Mg Tablet 1 Mg PO BID Norvasc (Amlodipine Besylate) 10 Mg Tablet 10 Mg PO DAILY Oxybutynin Chloride 5 Mg Tablet 2.5 Mg PO BID Depakote Er (Divalproex Sodium) 500 Mg Tab.er.24h 1,500 Mg PO HS Klor-Con M20 (Potassium Chloride) 20 Meq Tab.er.prt 20 Meq PO DAILY Cymbalta (Duloxetine Hcl) 60 Mg Capsule.dr 60 Mg PO DAILY Multivitamin with Iron Tablet (Multivitamin/Iron/Folic Acid) 1 Each Tablet 1 Tab PO DAILY Flomax (Tamsulosin Hcl) 0.4 Mg Cap.er.24h 0.8 Mg PO DAILY Olanzapine 5 Mg Tablet 2.5 Mg PO PRN Q2HR PRN MDD 10mg/ 24 hrs Remeron (Mirtazapine) 15 Mg Tablet 7.5 Mg PO HS Bisacodyl 10 Mg Supp.rect 10 Mg RC PRN DAILY PRN Tylenol (Acetaminophen) 325 Mg Tablet 650 Mg PO PRN Q6HRS PRN I have reviewed the current psychotropics carefully including drug interactions. Risk benefit ratio favors no change other than as noted in my dictated progress note. Diagnosis: Problems: (1) Depression (2) Schizoaffective disorder (3) Anxiety disorder (4) Impulse control disorder (5) Schizophrenia, paranoid, chronic with acute exacerbation CATHY EMERY MD Jul 30, 2018 22:47
[2018-07-31] MEDS: LEVOTHYROXINE 50 MCG TABLET PO SCH (04:57)
--- NOTE | 2018-07-31 05:30 | PN ---
DATE: 07/29/2018 PSYCHIATRIC PROGRESS NOTE This late entry 07/29/2018 covers elements, not covered in my initial note. SUBJECTIVE: I met with the patient in the evening and staffed at treatment team meeting with entire team in the morning. The patient remains somewhat withdrawn, somewhat exit seeking, anxious, paranoid at times. REVIEW OF SYSTEMS: Ambulation impaired with walker. No CV, , pulmonary, eye, ENT system symptoms on review. MENTAL STATUS EXAM: Oriented to himself and situation. Speech has some latency, and I met with him on 2 or 3 different occasions as he called me back to talk yet again about discharge plans and possibly to [facility]. Speech coherent, abstraction fair, computation impaired, language function intact, attention span short. Mood and affect remains somewhat withdrawn at times. LABORATORY DATA: Reviewed. IMPRESSION: Unchanged from initial note. PLAN: No change from initial note. MAN Ty EMERY MD DR: SARINA/nilda JOB#: [id number] / [id number]
--- NOTE | 2018-07-31 05:30 | PN ---
DATE: 07/28/2018 PSYCHIATRIC PROGRESS NOTE This late entry 07/28/2018 covers elements not covered in my initial note. SUBJECTIVE: I met with the patient in the evening. The patient slept 6-1/2 hours previous night. He received Zyprexa at 2100 previous evening because he was agitated, anxious, ramming his walker into the wall, fixated on his medications, somewhat paranoid. REVIEW OF SYSTEMS: Ambulation impaired with walker. No CV, , pulmonary, eye, ENT system symptoms on review. MENTAL STATUS EXAM: Oriented to himself and situation. Speech has some latency, coherent. Abstraction fair, computation impaired, language function intact, attention span short. Mood and affect remain somewhat withdrawn at times. LABORATORY DATA: Reviewed. IMPRESSION: Schizoaffective disorder, bipolar type, mixed with psychotic features. Rest unchanged. PLAN: No change from initial note. MAN Ty EMERY MD DR: SARINA/nilda JOB#: [id number] / [id number]
[2018-07-31 06:42] VITALS: BP 146/91
[2018-07-31] MEDS: TAMSULOSIN 0.4 MG CAP.ER.24H. PO SCH (08:31)
[2018-07-31] MEDS: MULTIVITAMIN with MINERAL TABLET. PO SCH (08:31)
[2018-07-31] MEDS: POTASSIUM CHLORIDE 20 MEQ TABLET.ER. PO SCH (08:32)
[2018-07-31] MEDS: busPIRone 10 MG TABLET. PO SCH ×3 (08:32→20:57)
[2018-07-31] MEDS: OXYBUTYNIN CHLORIDE 5 MG TABLET PO SCH ×2 (08:32→20:57)
[2018-07-31] MEDS: GABAPENTIN 300 MG CAPSULE. PO SCH ×5 (08:32→20:57)
[2018-07-31] MEDS: cloZAPine 25 MG TABLET PO SCH (08:32)
[2018-07-31] MEDS: amLODIPine BESYLATE 10 MG TABLET PO SCH (08:32)
[2018-07-31] MEDS: clonazePAM 0.5 MG TABLET PO SCH ×2 (08:33→20:56)
[2018-07-31 16:18] VITALS: BP 136/91
[2018-07-31] MEDS: DIVALPROEX ER 500 MG TAB.ER.24H PO SCH (20:57)
[2018-07-31] MEDS: risperiDONE 2 MG TABLET. PO SCH (20:57)
--- NOTE | 2018-07-31 22:09 | PDOC ---
Exam Note: Nguyễn Note: Please also refer to the separate dictated note~for this date of service dictated separately.~Patient seen individually. Discussed the patient with Nursing staff reviewed the chart.~Reviewed interim history and current functioning. Reviewed vital signs,~Labs/ Radiology~and current medications noted below. Continue current treatment with the changes noted in the dictated addendum note Assessment: Vital Signs: Vital Signs Date Time Temp Pulse Resp B/P (MAP) Pulse Ox O2 Delivery O2 Flow Rate FiO2 07/31/18 16:18 98.0 92 18 136/91 (106) 94 Room Air I&O Intake and Output 07/31/18 07:01 Intake Total 1680 ml Balance 1680 ml Intake Oral 1680 ml Current Medications: Meds: Current Medications Acetaminophen (Tylenol) 650 mg PRN Q6HRS PRN PO PAIN / TEMP Last administered on 07/09/18at 22:06; Start 06/21/18 at 20:15 Clonazepam (KlonoPIN) 1 mg BID PO Last administered on 07/31/18at 20:56; Start 06/21/18 at 21:00 Gabapentin (Neurontin) 900 mg QID PO Last administered on 07/08/18at 16:58; Start 06/21/18 at 21:00; Stop 07/08/18 at 17:47; Status DC Al Hydroxide/Mg Hydroxide (Mylanta Plus Xs) 15 ml PRN AFTMEALHC PRN PO GI SYMPTOMS; Start 06/21/18 at 20:15 Magnesium Hydroxide (Milk Of Magnesia) 400 mg PRN DAILY PRN PO CONSTIPATION; Start 06/21/18 at 20:15 Multi-Ingredient Ointment (Analgesic [place]) 1 gerri PRN QID PRN TP MUSCLE PAIN; Start 06/21/18 at 20:15 Oxybutynin Chloride (Ditropan) 2.5 mg BID PO Last administered on 07/31/18at 20 :57; Start 06/21/18 at 21:00 Potassium Chloride (Klor-Con) 20 meq DAILY PO Last administered on 07/31/18at 08:32; Start 06/22/18 at 09:00 Tamsulosin HCl (Flomax) 0.8 mg DAILY PO Last administered on 07/31/18at 08:31; Start 06/22/18 at 09:00 Amlodipine Besylate (Norvasc) 10 mg DAILY PO Last administered on 07/31/18 08 :32; Start 06/22/18 at 09:00 Baclofen (Lioresal) 10 mg QID PO Last administered on 07/07/18at 19:36; Start 06/21/18 at 21:00; Stop 07/08/18 at 11:48; Status DC Bisacodyl (Dulcolax Supp) 10 mg PRN DAILY PRN [place] CONSTIPATION; Start 06/21/18 at 20:45 Buspirone HCl (Buspar) 10 mg TID PO Last administered on 07/31/18at 20:57; Start 06/21/18 at 21:00 Divalproex Sodium (Depakote Er) 1,500 mg HS PO Last administered on 07/31/18 20:57; Start 06/21/18 at 21:00 Non-Formulary Medication (Gabapentin ) 800 mg QID PO ; Start 06/21/18 at 21:00 ; Status UNV Levothyroxine Sodium (Synthroid) 50 mcg DAILY06 PO Last administered on at 04:57; Start 06/22/18 at 06:00 Multivitamins/ Calcium (Thera-M Plus) 1 tab DAILY PO Last administered on 07/31 08:31; Start 06/22/18 at 09:00 Olanzapine (ZyPREXA ZYDIS) 2.5 mg PRN Q2HR PRN PO PSYCHOSIS Last administered on 07/27/18at 20:29; Start 06/21/18 at 20:45 Olanzapine (ZyPREXA) 5 mg BID PO Last administered on 06/23/18at 08:47; Start 06/21/18 at 21:00; Stop 06/23/18 at 17:06; Status DC Risperidone (RisperDAL) 1.5 mg HS PO Last administered on 06/23/18at 19:45; Start 06/21/18 at 21:00; Stop 06/24/18 at 11:06; Status DC Trazodone HCl (Desyrel) 50 mg PRN QHS PRN PO INSOMNIA Last administered on 07/11 20:19; Start 06/21/18 at 21:00 Nicotine (Nicoderm Cq 7mg) 1 patch PRN DAILY PRN TD SMOKING CESSATION; Start 06/21/18 at 23:30; Stop 07/09/18 at 05:39; Status DC Vitamin D (Vitamin D3) 50,000 unit WEEKLY PO Last administered on 07/28/18at 09 :25; Start 06/23/18 at 16:30 Olanzapine (ZyPREXA) 5 mg DAILY PO Last administered on 06/25/18at 08:04; Start 06/24/18 at 09:00; Stop 06/26/18 at 00:00; Status DC Risperidone (RisperDAL) 1.75 mg HS PO Last administered on 07/06/18at 20:08; Start 06/24/18 at 21:00; Stop 07/07/18 at 12:40; Status DC Risperidone (RisperDAL) 2 mg HS PO Last administered on 07/31/18at 20:57; Start 07/07/18 at 21:00 Gabapentin (Neurontin) 600 mg QID PO Last administered on 07/31/18at 20:57; Start 07/08/18 at 21:00 Nicotine (Nicoderm Cq 21mg) 1 patch DAILY TD Last administered on 07/30/18at 08 :54; Start 07/09/18 at 09:00; Stop 07/31/18 at 04:33; Status DC Clozapine (Clozaril) 25 mg DAILY PO Last administered on 07/27/18at 09:38; Start 07/13/18 at 09:00; Stop 07/27/18 at 16:52; Status DC Vitamin D (Vitamin D3) 50,000 unit WEEKLY PO ; Start 07/24/18 at 09:00; Status Cancel Clozapine (Clozaril) 50 mg DAILY PO Last administered on 07/31/18at 08:32; Start 07/28/18 at 09:00 Nicotine (Nicoderm Cq 21mg) 1 patch PRN DAILY PRN TD SMOKING CESSATION; Start 07/31/18 at 04:45 Active Scripts Active Reported Zyprexa (Olanzapine) 5 Mg Tablet 5 Mg PO BID NICODERM CQ 7mg (Nicotine) 1 Each Patch.td24 1 Patch TD PRN DAILY PRN Trazodone Hcl 50 Mg Tablet 50 Mg PO PRN QHS PRN Risperdal (Risperidone) 1 Mg Tablet 1.5 Mg PO HS Analgesic [place] (Methyl Salicylate/Menthol) 28 Gm Oint...g. 1 Gerri TP PRN QID PRN Milk Of Magnesia (Magnesium Hydroxide) 400 Mg/5 Ml Oral.susp 400 Mg PO PRN DAILY PRN Mag-Al Plus Xs Suspension (Mag Hydrox/Al Hydrox/Simeth) 30 Ml Oral.susp 15 Ml PO PRN AFTMEALHC PRN Buspirone Hcl 10 Mg Tablet 10 Mg PO TID Baclofen 10 Mg Tablet 10 Mg PO QID Gabapentin 100 Mg Capsule 100 Mg PO QID Gabapentin 800 Mg Tablet 800 Mg PO QID Levothyroxine Sodium 50 Mcg Tablet 50 Mcg PO DAILYAC Klonopin (Clonazepam) 0.5 Mg Tablet 1 Mg PO BID Norvasc (Amlodipine Besylate) 10 Mg Tablet 10 Mg PO DAILY Oxybutynin Chloride 5 Mg Tablet 2.5 Mg PO BID Depakote Er (Divalproex Sodium) 500 Mg Tab.er.24h 1,500 Mg PO HS Klor-Con M20 (Potassium Chloride) 20 Meq Tab.er.prt 20 Meq PO DAILY Cymbalta (Duloxetine Hcl) 60 Mg Capsule.dr 60 Mg PO DAILY Multivitamin with Iron Tablet (Multivitamin/Iron/Folic Acid) 1 Each Tablet 1 Tab PO DAILY Flomax (Tamsulosin Hcl) 0.4 Mg Cap.er.24h 0.8 Mg PO DAILY Olanzapine 5 Mg Tablet 2.5 Mg PO PRN Q2HR PRN MDD 10mg/ 24 hrs Remeron (Mirtazapine) 15 Mg Tablet 7.5 Mg PO HS Bisacodyl 10 Mg Supp.rect 10 Mg RC PRN DAILY PRN Tylenol (Acetaminophen) 325 Mg Tablet 650 Mg PO PRN Q6HRS PRN I have reviewed the current psychotropics carefully including drug interactions. Risk benefit ratio favors no change other than as noted in my dictated progress note. Diagnosis: Problems: (1) Depression (2) Schizoaffective disorder (3) Anxiety disorder (4) Impulse control disorder (5) Schizophrenia, paranoid, chronic with acute exacerbation CATHY EMERY MD Jul 31, 2018 22:09
[2018-07-31] MEDS: MAGNESIUM HYDROXIDE 2,400 MG/30 ML ORAL.SUSP. PO PRN (22:24)
[2018-08-01] MEDS: LEVOTHYROXINE 50 MCG TABLET PO SCH (05:41)
[2018-08-01 06:31] VITALS: BP 117/87
[2018-08-01] MEDS: MULTIVITAMIN with MINERAL TABLET. PO SCH (08:55)
[2018-08-01] MEDS: OXYBUTYNIN CHLORIDE 5 MG TABLET PO SCH ×2 (08:56→20:12)
[2018-08-01] MEDS: amLODIPine BESYLATE 10 MG TABLET PO SCH (08:56)
[2018-08-01] MEDS: GABAPENTIN 300 MG CAPSULE. PO SCH ×4 (08:56→20:13)
[2018-08-01] MEDS: TAMSULOSIN 0.4 MG CAP.ER.24H. PO SCH (08:56)
[2018-08-01] MEDS: cloZAPine 25 MG TABLET PO SCH (08:57)
[2018-08-01] MEDS: POTASSIUM CHLORIDE 20 MEQ TABLET.ER. PO SCH (08:57)
[2018-08-01] MEDS: busPIRone 10 MG TABLET. PO SCH ×3 (08:59→20:13)
[2018-08-01] MEDS: clonazePAM 0.5 MG TABLET PO SCH ×2 (08:59→20:12)
[2018-08-01 16:22] VITALS: BP 129/82
--- NOTE | 2018-08-01 17:07 | PN ---
DATE: 07/30/2018 PSYCHIATRIC PROGRESS NOTE This late entry 07/30/2018 covers elements, not covered in my initial note. SUBJECTIVE: I met with the patient in the evening. The patient has been somewhat exit seeking, rushes and races with his walker from the exit doors, but redirects. I met with him close to the exit door, who was seated in the chair, but he made no attempt to escape. He slept 7-1/2 hours previous night. He was somewhat agitated in the morning per nursing report, did not know why he was here, threw his walker, frustrated because he said he wanted to go to the [facility]. When he threw his walker, it cracked a window, which is then broken gradually as the day has gone on. We will check a UA to make sure he does not have a UTI as he is having frequency of urination. REVIEW OF SYSTEMS: Ambulation impaired with walker. No CV, , pulmonary, eye, ENT system symptoms on review. MENTAL STATUS EXAM: Oriented to himself and situation. Speech is coherent, rapid at times. Abstraction fair, computation impaired, language function intact, attention span short. Mood and affect as noted is somewhat labile. LABORATORY DATA: Reviewed. IMPRESSION: Schizoaffective disorder, bipolar type, mixed with psychotic features, rule out urinary tract infection. PLAN: Check UA. Rest unchanged from initial note, but no UTI is evident. We will continue to increase the Clozaril. Tele is stabilized and then reduced the Risperdal. CATHY EMERY MD DR: SARINA/nilda JOB#: [id number] / [id number]
--- NOTE | 2018-08-01 17:18 | PN ---
DATE: 07/31/2018 This is a late entry 07/31/2018 covers elements not covered in my initial note. SUBJECTIVE: I met with the patient in the evening. The patient has not been trying to exit the unit, compliant with his medications, pleasant per nursing. UA on 07/30/2018 is unremarkable. REVIEW OF SYSTEMS: Ambulation impaired with walker. No CV, , pulmonary, eye, ENT system symptoms on review. MENTAL STATUS EXAM: Oriented to himself and situation. Speech has some latency, coherent. Abstraction fair, computation impaired, language function intact, attention span short. Mood and affect, lability is improved. He has not been aggressive like throwing his walker like he did the day before. LABORATORY DATA: Reviewed. IMPRESSION: Schizoaffective disorder, bipolar type, mixed with psychotic features, in partial remission; anxiety disorder, unspecified. Rest unchanged. PLAN: Continue psychotropics from initial note. Check absolute neutrophil count WBC on Thursday and increase Clozaril. MAN Ty EMERY MD DR: SARINA/nilda JOB#: [id number] / [id number]
[2018-08-01] MEDS: risperiDONE 2 MG TABLET. PO SCH (20:13)
[2018-08-01] MEDS: DIVALPROEX ER 500 MG TAB.ER.24H PO SCH (20:13)
--- NOTE | 2018-08-01 22:55 | PDOC ---
Exam Note: Nguyễn Note: Please also refer to the separate dictated note~for this date of service dictated separately.~Patient seen individually. Discussed the patient with Nursing staff reviewed the chart.~Reviewed interim history and current functioning. Reviewed vital signs,~Labs/ Radiology~and current medications noted below. Continue current treatment with the changes noted in the dictated addendum note Assessment: Vital Signs: Vital Signs Date Time Temp Pulse Resp B/P (MAP) Pulse Ox O2 Delivery O2 Flow Rate FiO2 08/01/18 16:22 97.8 68 17 129/82 (98) 94 08/01/18 06:31 Room Air I&O Intake and Output 08/01/18 07:01 Intake Total 1085 ml Balance 1085 ml Intake Oral 1085 ml Current Medications: Meds: Current Medications Acetaminophen (Tylenol) 650 mg PRN Q6HRS PRN PO PAIN / TEMP Last administered on 07/09/18at 22:06; Start 06/21/18 at 20:15 Clonazepam (KlonoPIN) 1 mg BID PO Last administered on 08/01/18at 20:12; Start 06/21/18 at 21:00 Gabapentin (Neurontin) 900 mg QID PO Last administered on 07/08/18at 16:58; Start 06/21/18 at 21:00; Stop 07/08/18 at 17:47; Status DC Al Hydroxide/Mg Hydroxide (Mylanta Plus Xs) 15 ml PRN AFTMEALHC PRN PO GI SYMPTOMS; Start 06/21/18 at 20:15 Magnesium Hydroxide (Milk Of Magnesia) 400 mg PRN DAILY PRN PO CONSTIPATION Last administered on 07/31/18at 22:24; Start 06/21/18 at 20:15 Multi-Ingredient Ointment (Analgesic [place]) 1 gerri PRN QID PRN TP MUSCLE PAIN; Start 06/21/18 at 20:15 Oxybutynin Chloride (Ditropan) 2.5 mg BID PO Last administered on 08/01/18at 20 :12; Start 06/21/18 at 21:00 Potassium Chloride (Klor-Con) 20 meq DAILY PO Last administered on 08/01/18at 08:57; Start 06/22/18 at 09:00 Tamsulosin HCl (Flomax) 0.8 mg DAILY PO Last administered on 08/01/18at 08:56; Start 06/22/18 at 09:00 Amlodipine Besylate (Norvasc) 10 mg DAILY PO Last administered on 08/01/18 08 :56; Start 06/22/18 at 09:00 Baclofen (Lioresal) 10 mg QID PO Last administered on 07/07/18at 19:36; Start 06/21/18 at 21:00; Stop 07/08/18 at 11:48; Status DC Bisacodyl (Dulcolax Supp) 10 mg PRN DAILY PRN [place] CONSTIPATION; Start 06/21/18 at 20:45 Buspirone HCl (Buspar) 10 mg TID PO Last administered on 08/01/18 20:13; Start 06/21/18 at 21:00 Divalproex Sodium (Depakote Er) 1,500 mg HS PO Last administered on 08/01/18 20:13; Start 06/21/18 at 21:00 Non-Formulary Medication (Gabapentin ) 800 mg QID PO ; Start 06/21/18 at 21:00 ; Status UNV Levothyroxine Sodium (Synthroid) 50 mcg DAILY06 PO Last administered on 05:41; Start 06/22/18 at 06:00 Multivitamins/ Calcium (Thera-M Plus) 1 tab DAILY PO Last administered on 08/01 08:55; Start 06/22/18 at 09:00 Olanzapine (ZyPREXA ZYDIS) 2.5 mg PRN Q2HR PRN PO PSYCHOSIS Last administered on 07/27/18 20:29; Start 06/21/18 at 20:45 Olanzapine (ZyPREXA) 5 mg BID PO Last administered on 06/23/18 08:47; Start 06/21/18 at 21:00; Stop 06/23/18 at 17:06; Status DC Risperidone (RisperDAL) 1.5 mg HS PO Last administered on 06/23/18at 19:45; Start 06/21/18 at 21:00; Stop 06/24/18 at 11:06; Status DC Trazodone HCl (Desyrel) 50 mg PRN QHS PRN PO INSOMNIA Last administered on 07/11 20:19; Start 06/21/18 at 21:00 Nicotine (Nicoderm Cq 7mg) 1 patch PRN DAILY PRN TD SMOKING CESSATION; Start 06/21/18 at 23:30; Stop 07/09/18 at 05:39; Status DC Vitamin D (Vitamin D3) 50,000 unit WEEKLY PO Last administered on 07/28/18at 09 :25; Start 06/23/18 at 16:30 Olanzapine (ZyPREXA) 5 mg DAILY PO Last administered on 06/25/18at 08:04; Start 06/24/18 at 09:00; Stop 06/26/18 at 00:00; Status DC Risperidone (RisperDAL) 1.75 mg HS PO Last administered on 07/06/18at 20:08; Start 06/24/18 at 21:00; Stop 07/07/18 at 12:40; Status DC Risperidone (RisperDAL) 2 mg HS PO Last administered on 08/01/18at 20:13; Start 07/07/18 at 21:00 Gabapentin (Neurontin) 600 mg QID PO Last administered on 08/01/18at 20:13; Start 07/08/18 at 21:00 Nicotine (Nicoderm Cq 21mg) 1 patch DAILY TD Last administered on 07/30/18at 08 :54; Start 07/09/18 at 09:00; Stop 07/31/18 at 04:33; Status DC Clozapine (Clozaril) 25 mg DAILY PO Last administered on 07/27/18at 09:38; Start 07/13/18 at 09:00; Stop 07/27/18 at 16:52; Status DC Vitamin D (Vitamin D3) 50,000 unit WEEKLY PO ; Start 07/24/18 at 09:00; Status Cancel Clozapine (Clozaril) 50 mg DAILY PO Last administered on 08/01/18at 08:57; Start 07/28/18 at 09:00 Nicotine (Nicoderm Cq 21mg) 1 patch PRN DAILY PRN TD SMOKING CESSATION; Start 07/31/18 at 04:45 Active Scripts Active Reported Zyprexa (Olanzapine) 5 Mg Tablet 5 Mg PO BID NICODERM CQ 7mg (Nicotine) 1 Each Patch.td24 1 Patch TD PRN DAILY PRN Trazodone Hcl 50 Mg Tablet 50 Mg PO PRN QHS PRN Risperdal (Risperidone) 1 Mg Tablet 1.5 Mg PO HS Analgesic [place] (Methyl Salicylate/Menthol) 28 Gm Oint...g. 1 Gerri TP PRN QID PRN Milk Of Magnesia (Magnesium Hydroxide) 400 Mg/5 Ml Oral.susp 400 Mg PO PRN DAILY PRN Mag-Al Plus Xs Suspension (Mag Hydrox/Al Hydrox/Simeth) 30 Ml Oral.susp 15 Ml PO PRN AFTMEALHC PRN Buspirone Hcl 10 Mg Tablet 10 Mg PO TID Baclofen 10 Mg Tablet 10 Mg PO QID Gabapentin 100 Mg Capsule 100 Mg PO QID Gabapentin 800 Mg Tablet 800 Mg PO QID Levothyroxine Sodium 50 Mcg Tablet 50 Mcg PO DAILYAC Klonopin (Clonazepam) 0.5 Mg Tablet 1 Mg PO BID Norvasc (Amlodipine Besylate) 10 Mg Tablet 10 Mg PO DAILY Oxybutynin Chloride 5 Mg Tablet 2.5 Mg PO BID Depakote Er (Divalproex Sodium) 500 Mg Tab.er.24h 1,500 Mg PO HS Klor-Con M20 (Potassium Chloride) 20 Meq Tab.er.prt 20 Meq PO DAILY Cymbalta (Duloxetine Hcl) 60 Mg Capsule.dr 60 Mg PO DAILY Multivitamin with Iron Tablet (Multivitamin/Iron/Folic Acid) 1 Each Tablet 1 Tab PO DAILY Flomax (Tamsulosin Hcl) 0.4 Mg Cap.er.24h 0.8 Mg PO DAILY Olanzapine 5 Mg Tablet 2.5 Mg PO PRN Q2HR PRN MDD 10mg/ 24 hrs Remeron (Mirtazapine) 15 Mg Tablet 7.5 Mg PO HS Bisacodyl 10 Mg Supp.rect 10 Mg RC PRN DAILY PRN Tylenol (Acetaminophen) 325 Mg Tablet 650 Mg PO PRN Q6HRS PRN I have reviewed the current psychotropics carefully including drug interactions. Risk benefit ratio favors no change other than as noted in my dictated progress note. Diagnosis: Problems: (1) Depression (2) Schizoaffective disorder (3) Anxiety disorder (4) Impulse control disorder (5) Schizophrenia, paranoid, chronic with acute exacerbation CATHY EMERY MD Aug 01, 2018 22:55
[2018-08-02] MEDS: LEVOTHYROXINE 50 MCG TABLET PO SCH (03:59)
[2018-08-02 06:32] VITALS: BP 91/62
[2018-08-02 07:09] LABS: BASO % 1 % (0-3); EOS # 0.2 x10^3/uL (0.0-0.7); EOS % 3 % (0-3); HEMATOCRIT 41.7 % (39.0-53.0); HEMOGLOBIN 14.1 g/dL (13.0-17.5); LYMPH # 1.5 x10^3/uL (1.0-4.8); LYMPH % 20 % (24-48); MEAN CORPUSCULAR HEMOGLOBIN 30 pg (25-35); MEAN CORPUSCULAR HGB CONC 34 g/dL (31-37); MEAN CORPUSCULAR VOLUME 89 fL (79-100); MONO # 0.7 x10^3/uL (0.0-1.1); MONO % 9 % (0-9); NEUT # 5.1 x10^3uL (1.8-7.7); NEUT % 68 % (31-73); PLATELET COUNT 263 x10^3/uL (140-400); RED BLOOD COUNT 4.71 x10^6/uL (4.30-5.70); RED CELL DISTRIBUTION WIDTH 13.2 % (11.5-14.5); WHITE BLOOD COUNT 7.5 x10^3/uL (4.0-11.0)
[2018-08-02 07:33] LABS: ALBUMIN 3.3 g/dL (3.4-5.0); ALBUMIN/GLOBULIN RATIO 0.9 (1.0-1.7); CALCIUM 8.4 mg/dL (8.5-10.1); CREATININE 0.6 mg/dL (0.7-1.3); GFR 138.9; TOTAL BILIRUBIN 0.3 mg/dL (0.2-1.0)
[2018-08-02 07:36] LABS: VAL ACID 66 mcg/mL (50-100)
[2018-08-02] MEDS: GABAPENTIN 300 MG CAPSULE. PO SCH ×4 (08:07→21:32)
[2018-08-02] MEDS: cloZAPine 25 MG TABLET PO SCH (08:07)
[2018-08-02] MEDS: POTASSIUM CHLORIDE 20 MEQ TABLET.ER. PO SCH (08:07)
[2018-08-02] MEDS: MULTIVITAMIN with MINERAL TABLET. PO SCH (08:07)
[2018-08-02] MEDS: TAMSULOSIN 0.4 MG CAP.ER.24H. PO SCH (08:07)
[2018-08-02] MEDS: clonazePAM 0.5 MG TABLET PO SCH ×2 (08:07→21:31)
[2018-08-02] MEDS: busPIRone 10 MG TABLET. PO SCH ×3 (08:08→21:31)
[2018-08-02] MEDS: OXYBUTYNIN CHLORIDE 5 MG TABLET PO SCH ×2 (08:08→21:31)
[2018-08-02] MEDS: amLODIPine BESYLATE 10 MG TABLET PO SCH (08:10)
[2018-08-02] MEDS: NICOTINE 21MG PATCH. TD PRN (15:57)
[2018-08-02 16:16] VITALS: BP 135/98
--- NOTE | 2018-08-02 18:56 | PDOC ---
Exam Note: Nguyễn Note: Please also refer to the separate dictated note~for this date of service dictated separately.~Patient seen individually. Discussed the patient with Nursing staff reviewed the chart.~Reviewed interim history and current functioning. Reviewed vital signs,~Labs/ Radiology~and current medications noted below. Continue current treatment with the changes noted in the dictated addendum note Assessment: Vital Signs: Vital Signs Date Time Temp Pulse Resp B/P (MAP) Pulse Ox O2 Delivery O2 Flow Rate FiO2 08/02/18 16:16 97.8 74 18 135/98 (110) 98 Room Air I&O Intake and Output 08/02/18 07:01 Intake Total 1320 ml Balance 1320 ml Intake Oral 1320 ml # Bowel Movements 1 Labs: Laboratory Tests Test 08/02/18 06:34 White Blood Count 7.5 x10^3/uL (4.0-11.0) Red Blood Count 4.71 x10^6/uL (4.30-5.70) Hemoglobin 14.1 g/dL (13.0-17.5) Hematocrit 41.7 % (39.0-53.0) Mean Corpuscular Volume 89 fL (79-100) Mean Corpuscular Hemoglobin 30 pg (25-35) Mean Corpuscular Hemoglobin Concent 34 g/dL (31-37) Red Cell Distribution Width 13.2 % (11.5-14.5) Platelet Count 263 x10^3/uL (140-400) Neutrophils (%) (Auto) 68 % (31-73) Lymphocytes (%) (Auto) 20 % (24-48) L Monocytes (%) (Auto) 9 % (0-9) Eosinophils (%) (Auto) 3 % (0-3) Basophils (%) (Auto) 1 % (0-3) Neutrophils # (Auto) 5.1 x10^3uL (1.8-7.7) Lymphocytes # (Auto) 1.5 x10^3/uL (1.0-4.8) Monocytes # (Auto) 0.7 x10^3/uL (0.0-1.1) Eosinophils # (Auto) 0.2 x10^3/uL (0.0-0.7) Basophils # (Auto) 0.0 x10^3/uL (0.0-0.2) Sodium Level 137 mmol/L (136-145) Potassium Level 4.0 mmol/L (3.5-5.1) Chloride Level 99 mmol/L (98-107) Carbon Dioxide Level 29 mmol/L (21-32) Anion Gap 9 (6-14) Blood Urea Nitrogen 9 mg/dL (8-26) Creatinine 0.6 mg/dL (0.7-1.3) L Estimated GFR (Cockcroft-Gault) 138.9 BUN/Creatinine Ratio 15 (6-20) Glucose Level 131 mg/dL (70-99) H Calcium Level 8.4 mg/dL (8.5-10.1) L Magnesium Level 2.0 mg/dL (1.8-2.4) Total Bilirubin 0.3 mg/dL (0.2-1.0) Aspartate Amino Transferase (AST) 12 U/L (15-37) L Alanine Aminotransferase (ALT) 15 U/L (16-63) L Alkaline Phosphatase 79 U/L (46-116) Total Protein 7.0 g/dL (6.4-8.2) Albumin 3.3 g/dL (3.4-5.0) L Albumin/Globulin Ratio 0.9 (1.0-1.7) L Valproic Acid Level 66 mcg/mL (50-100) Valproic Acid Last Dose Date 08/01/18 Valproic Acid Last Dose Time 2100 Current Medications: Meds: Current Medications Acetaminophen (Tylenol) 650 mg PRN Q6HRS PRN PO PAIN / TEMP Last administered on 07/09/18at 22:06; Start 06/21/18 at 20:15 Clonazepam (KlonoPIN) 1 mg BID PO Last administered on 08/02/18at 08:07; Start 06/21/18 at 21:00 Gabapentin (Neurontin) 900 mg QID PO Last administered on 07/08/18at 16:58; Start 06/21/18 at 21:00; Stop 07/08/18 at 17:47; Status DC Al Hydroxide/Mg Hydroxide (Mylanta Plus Xs) 15 ml PRN AFTMEALHC PRN PO GI SYMPTOMS; Start 06/21/18 at 20:15 Magnesium Hydroxide (Milk Of Magnesia) 400 mg PRN DAILY PRN PO CONSTIPATION Last administered on 07/31/18at 22:24; Start 06/21/18 at 20:15 Multi-Ingredient Ointment (Analgesic [place]) 1 gerri PRN QID PRN TP MUSCLE PAIN; Start 06/21/18 at 20:15 Oxybutynin Chloride (Ditropan) 2.5 mg BID PO Last administered on 08/02/18 08 :08; Start 06/21/18 at 21:00 Potassium Chloride (Klor-Con) 20 meq DAILY PO Last administered on 08/02/18 08:07; Start 06/22/18 at 09:00 Tamsulosin HCl (Flomax) 0.8 mg DAILY PO Last administered on 08/02/18 08:07; Start 06/22/18 at 09:00 Amlodipine Besylate (Norvasc) 10 mg DAILY PO Last administered on 08/01/18 08 :56; Start 06/22/18 at 09:00 Baclofen (Lioresal) 10 mg QID PO Last administered on 07/07/18at 19:36; Start 06/21/18 at 21:00; Stop 07/08/18 at 11:48; Status DC Bisacodyl (Dulcolax Supp) 10 mg PRN DAILY PRN [place] CONSTIPATION; Start 06/21/18 at 20:45 Buspirone HCl (Buspar) 10 mg TID PO Last administered on 08/02/18 13:01; Start 06/21/18 at 21:00 Divalproex Sodium (Depakote Er) 1,500 mg HS PO Last administered on 08/01/18at 20:13; Start 06/21/18 at 21:00 Non-Formulary Medication (Gabapentin ) 800 mg QID PO ; Start 06/21/18 at 21:00 ; Status UNV Levothyroxine Sodium (Synthroid) 50 mcg DAILY06 PO Last administered on 03:59; Start 06/22/18 at 06:00 Multivitamins/ Calcium (Thera-M Plus) 1 tab DAILY PO Last administered on 08/02 08:07; Start 06/22/18 at 09:00 Olanzapine (ZyPREXA ZYDIS) 2.5 mg PRN Q2HR PRN PO PSYCHOSIS Last administered on 07/27/18at 20:29; Start 06/21/18 at 20:45 Olanzapine (ZyPREXA) 5 mg BID PO Last administered on 06/23/18at 08:47; Start 06/21/18 at 21:00; Stop 06/23/18 at 17:06; Status DC Risperidone (RisperDAL) 1.5 mg HS PO Last administered on 06/23/18at 19:45; Start 06/21/18 at 21:00; Stop 06/24/18 at 11:06; Status DC Trazodone HCl (Desyrel) 50 mg PRN QHS PRN PO INSOMNIA Last administered on 07/11at 20:19; Start 06/21/18 at 21:00 Nicotine (Nicoderm Cq 7mg) 1 patch PRN DAILY PRN TD SMOKING CESSATION; Start 06/21/18 at 23:30; Stop 07/09/18 at 05:39; Status DC Vitamin D (Vitamin D3) 50,000 unit WEEKLY PO Last administered on 07/28/18at 09 :25; Start 06/23/18 at 16:30 Olanzapine (ZyPREXA) 5 mg DAILY PO Last administered on 06/25/18at 08:04; Start 06/24/18 at 09:00; Stop 06/26/18 at 00:00; Status DC Risperidone (RisperDAL) 1.75 mg HS PO Last administered on 07/06/18at 20:08; Start 06/24/18 at 21:00; Stop 07/07/18 at 12:40; Status DC Risperidone (RisperDAL) 2 mg HS PO Last administered on 08/01/18at 20:13; Start 07/07/18 at 21:00 Gabapentin (Neurontin) 600 mg QID PO Last administered on 08/02/18at 16:53; Start 07/08/18 at 21:00 Nicotine (Nicoderm Cq 21mg) 1 patch DAILY TD Last administered on 07/30/18at 08 :54; Start 07/09/18 at 09:00; Stop 07/31/18 at 04:33; Status DC Clozapine (Clozaril) 25 mg DAILY PO Last administered on 07/27/18at 09:38; Start 07/13/18 at 09:00; Stop 07/27/18 at 16:52; Status DC Vitamin D (Vitamin D3) 50,000 unit WEEKLY PO ; Start 07/24/18 at 09:00; Status Cancel Clozapine (Clozaril) 50 mg DAILY PO Last administered on 08/02/18at 08:07; Start 07/28/18 at 09:00 Nicotine (Nicoderm Cq 21mg) 1 patch PRN DAILY PRN TD SMOKING CESSATION Last administered on 08/02/18at 15:57; Start 07/31/18 at 04:45 Active Scripts Active Reported Zyprexa (Olanzapine) 5 Mg Tablet 5 Mg PO BID NICODERM CQ 7mg (Nicotine) 1 Each Patch.td24 1 Patch TD PRN DAILY PRN Trazodone Hcl 50 Mg Tablet 50 Mg PO PRN QHS PRN Risperdal (Risperidone) 1 Mg Tablet 1.5 Mg PO HS Analgesic [place] (Methyl Salicylate/Menthol) 28 Gm Oint...g. 1 Gerri TP PRN QID PRN Milk Of Magnesia (Magnesium Hydroxide) 400 Mg/5 Ml Oral.susp 400 Mg PO PRN DAILY PRN Mag-Al Plus Xs Suspension (Mag Hydrox/Al Hydrox/Simeth) 30 Ml Oral.susp 15 Ml PO PRN AFTMEALHC PRN Buspirone Hcl 10 Mg Tablet 10 Mg PO TID Baclofen 10 Mg Tablet 10 Mg PO QID Gabapentin 100 Mg Capsule 100 Mg PO QID Gabapentin 800 Mg Tablet 800 Mg PO QID Levothyroxine Sodium 50 Mcg Tablet 50 Mcg PO DAILYAC Klonopin (Clonazepam) 0.5 Mg Tablet 1 Mg PO BID Norvasc (Amlodipine Besylate) 10 Mg Tablet 10 Mg PO DAILY Oxybutynin Chloride 5 Mg Tablet 2.5 Mg PO BID Depakote Er (Divalproex Sodium) 500 Mg Tab.er.24h 1,500 Mg PO HS Klor-Con M20 (Potassium Chloride) 20 Meq Tab.er.prt 20 Meq PO DAILY Cymbalta (Duloxetine Hcl) 60 Mg Capsule.dr 60 Mg PO DAILY Multivitamin with Iron Tablet (Multivitamin/Iron/Folic Acid) 1 Each Tablet 1 Tab PO DAILY Flomax (Tamsulosin Hcl) 0.4 Mg Cap.er.24h 0.8 Mg PO DAILY Olanzapine 5 Mg Tablet 2.5 Mg PO PRN Q2HR PRN MDD 10mg/ 24 hrs Remeron (Mirtazapine) 15 Mg Tablet 7.5 Mg PO HS Bisacodyl 10 Mg Supp.rect 10 Mg RC PRN DAILY PRN Tylenol (Acetaminophen) 325 Mg Tablet 650 Mg PO PRN Q6HRS PRN I have reviewed the current psychotropics carefully including drug interactions. Risk benefit ratio favors no change other than as noted in my dictated progress note. Diagnosis: Problems: (1) Depression (2) Schizoaffective disorder (3) Anxiety disorder (4) Impulse control disorder (5) Schizophrenia, paranoid, chronic with acute exacerbation CATHY EMERY MD Aug 02, 2018 18:56
[2018-08-02] MEDS: risperiDONE 2 MG TABLET. PO SCH (21:30)
[2018-08-02] MEDS: DIVALPROEX ER 500 MG TAB.ER.24H PO SCH (21:31)
[2018-08-03 04:45] VITALS: BP 118/81
[2018-08-03] MEDS: LEVOTHYROXINE 50 MCG TABLET PO SCH (05:36)
[2018-08-03] MEDS: POTASSIUM CHLORIDE 20 MEQ TABLET.ER. PO SCH (07:47)
[2018-08-03] MEDS: TAMSULOSIN 0.4 MG CAP.ER.24H. PO SCH (07:47)
[2018-08-03] MEDS: busPIRone 10 MG TABLET. PO SCH ×3 (07:47→19:16)
[2018-08-03] MEDS: GABAPENTIN 300 MG CAPSULE. PO SCH ×4 (07:47→19:14)
[2018-08-03] MEDS: OXYBUTYNIN CHLORIDE 5 MG TABLET PO SCH ×2 (07:48→19:16)
[2018-08-03] MEDS: amLODIPine BESYLATE 10 MG TABLET PO SCH (07:49)
[2018-08-03] MEDS: MULTIVITAMIN with MINERAL TABLET. PO SCH (07:49)
[2018-08-03] MEDS: cloZAPine 25 MG TABLET PO SCH (07:51)
[2018-08-03] MEDS: clonazePAM 0.5 MG TABLET PO SCH ×2 (07:52→19:14)
[2018-08-03] MEDS: NICOTINE 21MG PATCH. TD PRN (12:33)
[2018-08-03 16:42] VITALS: BP 126/79
--- NOTE | 2018-08-03 18:09 | PN ---
DATE: 08/02/2018 PSYCHIATRIC PROGRESS NOTE This late entry 08/02/2018 covers elements not covered in my initial note. SUBJECTIVE: Met with the patient in the evening. The patient slept 4-3/4 hours previous evening, compliant with medications. No hallucinations noted. He is sleeping less aggressive, less labile. REVIEW OF SYSTEMS: Ambulation impaired with walker. Complains of weakness. No CV, , pulmonary, eye, ENT system symptoms on review. MENTAL STATUS EXAM: Oriented to himself and situation. Speech, he has some latency, coherent, very pleasant, smiling as I sat with him. No suicidal or homicidal ideation. Attention span is short. Language function is intact, less psychotic. LABORATORY DATA: Reviewed. IMPRESSION: Schizoaffective disorder, bipolar type, mixed. Rest unchanged. PLAN: No change from initial note. Await CBC, absolute neutrophil count then increase Clozaril, may reduce Klonopin consequent to his tiredness, sedation. MAN Ty EMERY MD DR: SARINA/nilda JOB#: [id number] / [id number]
--- NOTE | 2018-08-03 19:04 | PDOC ---
Exam Note: Nguyễn Note: Please also refer to the separate dictated note~for this date of service dictated separately.~Patient seen individually. Discussed the patient with Nursing staff reviewed the chart.~Reviewed interim history and current functioning. Reviewed vital signs,~Labs/ Radiology~and current medications noted below. Continue current treatment with the changes noted in the dictated addendum note Assessment: Vital Signs: Vital Signs Date Time Temp Pulse Resp B/P (MAP) Pulse Ox O2 Delivery O2 Flow Rate FiO2 08/03/18 16:42 98.7 89 16 126/79 (95) 94 08/03/18 04:45 Room Air I&O Intake and Output 08/03/18 07:01 Intake Total 1200 ml Balance 1200 ml Intake Oral 1200 ml Current Medications: Meds: Current Medications Acetaminophen (Tylenol) 650 mg PRN Q6HRS PRN PO PAIN / TEMP Last administered on 07/09/18at 22:06; Start 06/21/18 at 20:15 Clonazepam (KlonoPIN) 1 mg BID PO Last administered on 08/03/18at 07:52; Start 06/21/18 at 21:00 Gabapentin (Neurontin) 900 mg QID PO Last administered on 07/08/18at 16:58; Start 06/21/18 at 21:00; Stop 07/08/18 at 17:47; Status DC Al Hydroxide/Mg Hydroxide (Mylanta Plus Xs) 15 ml PRN AFTMEALHC PRN PO GI SYMPTOMS; Start 06/21/18 at 20:15 Magnesium Hydroxide (Milk Of Magnesia) 400 mg PRN DAILY PRN PO CONSTIPATION Last administered on 07/31/18at 22:24; Start 06/21/18 at 20:15 Multi-Ingredient Ointment (Analgesic [place]) 1 gerri PRN QID PRN TP MUSCLE PAIN; Start 06/21/18 at 20:15 Oxybutynin Chloride (Ditropan) 2.5 mg BID PO Last administered on 08/03/18at 07 :48; Start 06/21/18 at 21:00 Potassium Chloride (Klor-Con) 20 meq DAILY PO Last administered on 08/03/18at 07:47; Start 06/22/18 at 09:00 Tamsulosin HCl (Flomax) 0.8 mg DAILY PO Last administered on 08/03/18at 07:47; Start 06/22/18 at 09:00 Amlodipine Besylate (Norvasc) 10 mg DAILY PO Last administered on 08/03/18at 07 :49; Start 06/22/18 at 09:00 Baclofen (Lioresal) 10 mg QID PO Last administered on 07/07/18at 19:36; Start 06/21/18 at 21:00; Stop 07/08/18 at 11:48; Status DC Bisacodyl (Dulcolax Supp) 10 mg PRN DAILY PRN [place] CONSTIPATION; Start 06/21/18 at 20:45 Buspirone HCl (Buspar) 10 mg TID PO Last administered on 08/03/18at 12:33; Start 06/21/18 at 21:00 Divalproex Sodium (Depakote Er) 1,500 mg HS PO Last administered on 08/02/18at 21:31; Start 06/21/18 at 21:00 Non-Formulary Medication (Gabapentin ) 800 mg QID PO ; Start 06/21/18 at 21:00 ; Status UNV Levothyroxine Sodium (Synthroid) 50 mcg DAILY06 PO Last administered on at 05:36; Start 06/22/18 at 06:00 Multivitamins/ Calcium (Thera-M Plus) 1 tab DAILY PO Last administered on 08/03 07:49; Start 06/22/18 at 09:00 Olanzapine (ZyPREXA ZYDIS) 2.5 mg PRN Q2HR PRN PO PSYCHOSIS Last administered on 07/27/18at 20:29; Start 06/21/18 at 20:45 Olanzapine (ZyPREXA) 5 mg BID PO Last administered on 06/23/18at 08:47; Start 06/21/18 at 21:00; Stop 06/23/18 at 17:06; Status DC Risperidone (RisperDAL) 1.5 mg HS PO Last administered on 06/23/18at 19:45; Start 06/21/18 at 21:00; Stop 06/24/18 at 11:06; Status DC Trazodone HCl (Desyrel) 50 mg PRN QHS PRN PO INSOMNIA Last administered on 07/11 20:19; Start 06/21/18 at 21:00 Nicotine (Nicoderm Cq 7mg) 1 patch PRN DAILY PRN TD SMOKING CESSATION; Start 06/21/18 at 23:30; Stop 07/09/18 at 05:39; Status DC Vitamin D (Vitamin D3) 50,000 unit WEEKLY PO Last administered on 07/28/18at 09 :25; Start 06/23/18 at 16:30 Olanzapine (ZyPREXA) 5 mg DAILY PO Last administered on 06/25/18at 08:04; Start 06/24/18 at 09:00; Stop 06/26/18 at 00:00; Status DC Risperidone (RisperDAL) 1.75 mg HS PO Last administered on 07/06/18at 20:08; Start 06/24/18 at 21:00; Stop 07/07/18 at 12:40; Status DC Risperidone (RisperDAL) 2 mg HS PO Last administered on 08/02/18at 21:30; Start 07/07/18 at 21:00 Gabapentin (Neurontin) 600 mg QID PO Last administered on 08/03/18at 17:17; Start 07/08/18 at 21:00 Nicotine (Nicoderm Cq 21mg) 1 patch DAILY TD Last administered on 07/30/18at 08 :54; Start 07/09/18 at 09:00; Stop 07/31/18 at 04:33; Status DC Clozapine (Clozaril) 25 mg DAILY PO Last administered on 07/27/18at 09:38; Start 07/13/18 at 09:00; Stop 07/27/18 at 16:52; Status DC Vitamin D (Vitamin D3) 50,000 unit WEEKLY PO ; Start 07/24/18 at 09:00; Status Cancel Clozapine (Clozaril) 50 mg DAILY PO Last administered on 08/03/18at 07:51; Start 07/28/18 at 09:00 Nicotine (Nicoderm Cq 21mg) 1 patch PRN DAILY PRN TD SMOKING CESSATION Last administered on 08/03/18at 12:33; Start 07/31/18 at 04:45 Active Scripts Active Reported Zyprexa (Olanzapine) 5 Mg Tablet 5 Mg PO BID NICODERM CQ 7mg (Nicotine) 1 Each Patch.td24 1 Patch TD PRN DAILY PRN Trazodone Hcl 50 Mg Tablet 50 Mg PO PRN QHS PRN Risperdal (Risperidone) 1 Mg Tablet 1.5 Mg PO HS Analgesic [place] (Methyl Salicylate/Menthol) 28 Gm Oint...g. 1 Gerri TP PRN QID PRN Milk Of Magnesia (Magnesium Hydroxide) 400 Mg/5 Ml Oral.susp 400 Mg PO PRN DAILY PRN Mag-Al Plus Xs Suspension (Mag Hydrox/Al Hydrox/Simeth) 30 Ml Oral.susp 15 Ml PO PRN AFTMEALHC PRN Buspirone Hcl 10 Mg Tablet 10 Mg PO TID Baclofen 10 Mg Tablet 10 Mg PO QID Gabapentin 100 Mg Capsule 100 Mg PO QID Gabapentin 800 Mg Tablet 800 Mg PO QID Levothyroxine Sodium 50 Mcg Tablet 50 Mcg PO DAILYAC Klonopin (Clonazepam) 0.5 Mg Tablet 1 Mg PO BID Norvasc (Amlodipine Besylate) 10 Mg Tablet 10 Mg PO DAILY Oxybutynin Chloride 5 Mg Tablet 2.5 Mg PO BID Depakote Er (Divalproex Sodium) 500 Mg Tab.er.24h 1,500 Mg PO HS Klor-Con M20 (Potassium Chloride) 20 Meq Tab.er.prt 20 Meq PO DAILY Cymbalta (Duloxetine Hcl) 60 Mg Capsule.dr 60 Mg PO DAILY Multivitamin with Iron Tablet (Multivitamin/Iron/Folic Acid) 1 Each Tablet 1 Tab PO DAILY Flomax (Tamsulosin Hcl) 0.4 Mg Cap.er.24h 0.8 Mg PO DAILY Olanzapine 5 Mg Tablet 2.5 Mg PO PRN Q2HR PRN MDD 10mg/ 24 hrs Remeron (Mirtazapine) 15 Mg Tablet 7.5 Mg PO HS Bisacodyl 10 Mg Supp.rect 10 Mg RC PRN DAILY PRN Tylenol (Acetaminophen) 325 Mg Tablet 650 Mg PO PRN Q6HRS PRN I have reviewed the current psychotropics carefully including drug interactions. Risk benefit ratio favors no change other than as noted in my dictated progress note. Diagnosis: Problems: (1) Depression (2) Schizoaffective disorder (3) Anxiety disorder (4) Impulse control disorder (5) Schizophrenia, paranoid, chronic with acute exacerbation CATHY EMERY MD Aug 03, 2018 19:04
[2018-08-03] MEDS: risperiDONE 2 MG TABLET. PO SCH (19:15)
[2018-08-03] MEDS: DIVALPROEX ER 500 MG TAB.ER.24H PO SCH (19:15)
[2018-08-03] MEDS ORDERED: cloZAPine 25 MG TABLET PO ONE (21:30)
--- NOTE | 2018-08-03 21:31 | PN ---
DATE: 08/01/2018 PSYCHIATRIC PROGRESS NOTE This late entry 08/01/2018 covers elements not covered in my initial note. SUBJECTIVE: I met with the patient in the evening. The patient slept 6-1/4 hours previous night. He has been using his wheelchair, states his legs have been giving out from under him. Less delusional. REVIEW OF SYSTEMS: No CV, , pulmonary, eye system symptoms on review. MENTAL STATUS EXAM: Oriented to himself and situation. Speech has some latency, coherent. Abstraction fair, computation impaired, language function intact, attention span short. Mood and affect somewhat withdrawn. LABORATORY DATA: Reviewed. IMPRESSION: Schizoaffective disorder, bipolar type, mixed with psychotic features. Rest unchanged. PLAN: No change from initial note. We will gradually increase the Clozaril depending on his CBC, absolute neutrophil counts being returned to normal. MAN Ty EMERY MD DR: SARINA/nilda JOB#: [id number] / [id number]
[2018-08-04 05:42] VITALS: BP 123/77
[2018-08-04] MEDS: LEVOTHYROXINE 50 MCG TABLET PO SCH (06:27)
[2018-08-04] MEDS: OXYBUTYNIN CHLORIDE 5 MG TABLET PO SCH ×2 (08:49→20:40)
[2018-08-04] MEDS: clonazePAM 0.5 MG TABLET PO SCH ×2 (08:49→20:43)
[2018-08-04] MEDS: busPIRone 10 MG TABLET. PO SCH ×3 (08:49→20:40)
[2018-08-04] MEDS: GABAPENTIN 300 MG CAPSULE. PO SCH ×4 (08:50→20:43)
[2018-08-04] MEDS: POTASSIUM CHLORIDE 20 MEQ TABLET.ER. PO SCH (08:50)
[2018-08-04] MEDS: TAMSULOSIN 0.4 MG CAP.ER.24H. PO SCH (08:50)
[2018-08-04] MEDS: MULTIVITAMIN with MINERAL TABLET. PO SCH (08:50)
[2018-08-04] MEDS: amLODIPine BESYLATE 10 MG TABLET PO SCH (08:50)
[2018-08-04] MEDS: NICOTINE 21MG PATCH. TD PRN (08:58)
[2018-08-04] MEDS: CHOLECALCIFEROL (VITAMIN D3) 50,000 UNIT CAPSULE PO SCH (08:58)
[2018-08-04 16:49] VITALS: BP 122/85
[2018-08-04] MEDS: risperiDONE 2 MG TABLET. PO SCH (20:40)
[2018-08-04] MEDS: DIVALPROEX ER 500 MG TAB.ER.24H PO SCH (20:41)
[2018-08-04] MEDS: cloZAPine 25 MG TABLET PO SCH (20:43)
--- NOTE | 2018-08-04 22:49 | PDOC ---
Exam Note: Nguyễn Note: Please also refer to the separate dictated note~for this date of service dictated separately.~Patient seen individually. Discussed the patient with Nursing staff reviewed the chart.~Reviewed interim history and current functioning. Reviewed vital signs,~Labs/ Radiology~and current medications noted below. Continue current treatment with the changes noted in the dictated addendum note Assessment: Vital Signs: Vital Signs Date Time Temp Pulse Resp B/P (MAP) Pulse Ox O2 Delivery O2 Flow Rate FiO2 08/04/18 16:49 98.5 94 18 122/85 (97) 96 08/04/18 05:42 Room Air I&O Intake and Output 08/04/18 07:01 Intake Total 1560 ml Balance 1560 ml Intake Oral 1560 ml Current Medications: Meds: Current Medications Acetaminophen (Tylenol) 650 mg PRN Q6HRS PRN PO PAIN / TEMP Last administered on 07/09/18at 22:06; Start 06/21/18 at 20:15 Clonazepam (KlonoPIN) 1 mg BID PO Last administered on 08/04/18at 20:43; Start 06/21/18 at 21:00 Gabapentin (Neurontin) 900 mg QID PO Last administered on 07/08/18at 16:58; Start 06/21/18 at 21:00; Stop 07/08/18 at 17:47; Status DC Al Hydroxide/Mg Hydroxide (Mylanta Plus Xs) 15 ml PRN AFTMEALHC PRN PO GI SYMPTOMS; Start 06/21/18 at 20:15 Magnesium Hydroxide (Milk Of Magnesia) 400 mg PRN DAILY PRN PO CONSTIPATION Last administered on 07/31/18at 22:24; Start 06/21/18 at 20:15 Multi-Ingredient Ointment (Analgesic [place]) 1 gerri PRN QID PRN TP MUSCLE PAIN; Start 06/21/18 at 20:15 Oxybutynin Chloride (Ditropan) 2.5 mg BID PO Last administered on 08/04/18at 20 :40; Start 06/21/18 at 21:00 Potassium Chloride (Klor-Con) 20 meq DAILY PO Last administered on 08/04/18at 08:50; Start 06/22/18 at 09:00 Tamsulosin HCl (Flomax) 0.8 mg DAILY PO Last administered on 08/04/18at 08:50; Start 06/22/18 at 09:00 Amlodipine Besylate (Norvasc) 10 mg DAILY PO Last administered on 08/04/18 08 :50; Start 06/22/18 at 09:00 Baclofen (Lioresal) 10 mg QID PO Last administered on 07/07/18at 19:36; Start 06/21/18 at 21:00; Stop 07/08/18 at 11:48; Status DC Bisacodyl (Dulcolax Supp) 10 mg PRN DAILY PRN [place] CONSTIPATION; Start 06/21/18 at 20:45 Buspirone HCl (Buspar) 10 mg TID PO Last administered on 08/04/18at 20:40; Start 06/21/18 at 21:00 Divalproex Sodium (Depakote Er) 1,500 mg HS PO Last administered on 08/04/18at 20:41; Start 06/21/18 at 21:00 Non-Formulary Medication (Gabapentin ) 800 mg QID PO ; Start 06/21/18 at 21:00 ; Status UNV Levothyroxine Sodium (Synthroid) 50 mcg DAILY06 PO Last administered on 06:27; Start 06/22/18 at 06:00 Multivitamins/ Calcium (Thera-M Plus) 1 tab DAILY PO Last administered on 08/04at 08:50; Start 06/22/18 at 09:00 Olanzapine (ZyPREXA ZYDIS) 2.5 mg PRN Q2HR PRN PO PSYCHOSIS Last administered on 07/27/18 20:29; Start 06/21/18 at 20:45 Olanzapine (ZyPREXA) 5 mg BID PO Last administered on 06/23/18at 08:47; Start 06/21/18 at 21:00; Stop 06/23/18 at 17:06; Status DC Risperidone (RisperDAL) 1.5 mg HS PO Last administered on 06/23/18at 19:45; Start 06/21/18 at 21:00; Stop 06/24/18 at 11:06; Status DC Trazodone HCl (Desyrel) 50 mg PRN QHS PRN PO INSOMNIA Last administered on 07/11 20:19; Start 06/21/18 at 21:00 Nicotine (Nicoderm Cq 7mg) 1 patch PRN DAILY PRN TD SMOKING CESSATION; Start 06/21/18 at 23:30; Stop 07/09/18 at 05:39; Status DC Vitamin D (Vitamin D3) 50,000 unit WEEKLY PO Last administered on 08/04/18at 08 :58; Start 06/23/18 at 16:30 Olanzapine (ZyPREXA) 5 mg DAILY PO Last administered on 06/25/18at 08:04; Start 06/24/18 at 09:00; Stop 06/26/18 at 00:00; Status DC Risperidone (RisperDAL) 1.75 mg HS PO Last administered on 07/06/18at 20:08; Start 06/24/18 at 21:00; Stop 07/07/18 at 12:40; Status DC Risperidone (RisperDAL) 2 mg HS PO Last administered on 08/04/18at 20:40; Start 07/07/18 at 21:00 Gabapentin (Neurontin) 600 mg QID PO Last administered on 08/04/18at 20:43; Start 07/08/18 at 21:00 Nicotine (Nicoderm Cq 21mg) 1 patch DAILY TD Last administered on 07/30/18at 08 :54; Start 07/09/18 at 09:00; Stop 07/31/18 at 04:33; Status DC Clozapine (Clozaril) 25 mg DAILY PO Last administered on 07/27/18at 09:38; Start 07/13/18 at 09:00; Stop 07/27/18 at 16:52; Status DC Vitamin D (Vitamin D3) 50,000 unit WEEKLY PO ; Start 07/24/18 at 09:00; Status Cancel Clozapine (Clozaril) 50 mg DAILY PO Last administered on 08/03/18at 07:51; Start 07/28/18 at 09:00; Stop 08/03/18 at 21:09; Status DC Nicotine (Nicoderm Cq 21mg) 1 patch PRN DAILY PRN TD SMOKING CESSATION Last administered on 08/04/18at 08:58; Start 07/31/18 at 04:45 Clozapine (Clozaril) 75 mg HS PO Last administered on 08/04/18at 20:43; Start 08/04/18 at 21:00 Clozapine (Clozaril) 25 mg 1X ONCE PO Last administered on 12/25/18at 21:25; Start 08/03/18 at 21:30; Stop 08/03/18 at 21:31; Status DC Active Scripts Active Reported Zyprexa (Olanzapine) 5 Mg Tablet 5 Mg PO BID NICODERM CQ 7mg (Nicotine) 1 Each Patch.td24 1 Patch TD PRN DAILY PRN Trazodone Hcl 50 Mg Tablet 50 Mg PO PRN QHS PRN Risperdal (Risperidone) 1 Mg Tablet 1.5 Mg PO HS Analgesic [place] (Methyl Salicylate/Menthol) 28 Gm Oint...g. 1 Gerri TP PRN QID PRN Milk Of Magnesia (Magnesium Hydroxide) 400 Mg/5 Ml Oral.susp 400 Mg PO PRN DAILY PRN Mag-Al Plus Xs Suspension (Mag Hydrox/Al Hydrox/Simeth) 30 Ml Oral.susp 15 Ml PO PRN AFTMEALHC PRN Buspirone Hcl 10 Mg Tablet 10 Mg PO TID Baclofen 10 Mg Tablet 10 Mg PO QID Gabapentin 100 Mg Capsule 100 Mg PO QID Gabapentin 800 Mg Tablet 800 Mg PO QID Levothyroxine Sodium 50 Mcg Tablet 50 Mcg PO DAILYAC Klonopin (Clonazepam) 0.5 Mg Tablet 1 Mg PO BID Norvasc (Amlodipine Besylate) 10 Mg Tablet 10 Mg PO DAILY Oxybutynin Chloride 5 Mg Tablet 2.5 Mg PO BID Depakote Er (Divalproex Sodium) 500 Mg Tab.er.24h 1,500 Mg PO HS Klor-Con M20 (Potassium Chloride) 20 Meq Tab.er.prt 20 Meq PO DAILY Cymbalta (Duloxetine Hcl) 60 Mg Capsule.dr 60 Mg PO DAILY Multivitamin with Iron Tablet (Multivitamin/Iron/Folic Acid) 1 Each Tablet 1 Tab PO DAILY Flomax (Tamsulosin Hcl) 0.4 Mg Cap.er.24h 0.8 Mg PO DAILY Olanzapine 5 Mg Tablet 2.5 Mg PO PRN Q2HR PRN MDD 10mg/ 24 hrs Remeron (Mirtazapine) 15 Mg Tablet 7.5 Mg PO HS Bisacodyl 10 Mg Supp.rect 10 Mg RC PRN DAILY PRN Tylenol (Acetaminophen) 325 Mg Tablet 650 Mg PO PRN Q6HRS PRN I have reviewed the current psychotropics carefully including drug interactions. Risk benefit ratio favors no change other than as noted in my dictated progress note. Diagnosis: Problems: (1) Depression (2) Schizoaffective disorder (3) Anxiety disorder (4) Impulse control disorder (5) Schizophrenia, paranoid, chronic with acute exacerbation CATHY EMERY MD Aug 04, 2018 22:49
--- NOTE | 2018-08-05 04:27 | PN ---
DATE: 08/03/2018 PSYCHIATRIC PROGRESS NOTE This late entry 08/03/2018 covers elements not covered in my initial note. SUBJECTIVE: I met with the patient in the evening. The patient slept 5-1/4 hours previous night. I met with him at some length in his room. He is fixated on wanting to leave and I discussed this at great length with him. REVIEW OF SYSTEMS: Ambulation impaired with walker. No CV, , pulmonary, eye, ENT system symptoms on review. MENTAL STATUS EXAM: Oriented to himself and situation. Speech has some latency, coherent. Abstraction fair, computation impaired, language function intact, attention span short. Mood and affect remain somewhat withdrawn, still paranoid, psychotic, less so than before. LABORATORY DATA: Reviewed. IMPRESSION: Unchanged from initial note. PLAN: No change from initial note. MAN Ty EMERY MD DR: SARINA/nilda JOB#: [id number] / [id number]
[2018-08-05 05:51] VITALS: BP 117/81
[2018-08-05] MEDS: LEVOTHYROXINE 50 MCG TABLET PO SCH (06:12)
[2018-08-05] MEDS: GABAPENTIN 300 MG CAPSULE. PO SCH ×4 (08:01→19:35)
[2018-08-05] MEDS: POTASSIUM CHLORIDE 20 MEQ TABLET.ER. PO SCH (08:01)
[2018-08-05] MEDS: TAMSULOSIN 0.4 MG CAP.ER.24H. PO SCH (08:01)
[2018-08-05] MEDS: MULTIVITAMIN with MINERAL TABLET. PO SCH (08:02)
[2018-08-05] MEDS: busPIRone 10 MG TABLET. PO SCH ×3 (08:03→19:33)
[2018-08-05] MEDS: OXYBUTYNIN CHLORIDE 5 MG TABLET PO SCH ×2 (08:03→19:34)
[2018-08-05] MEDS: amLODIPine BESYLATE 10 MG TABLET PO SCH (08:03)
[2018-08-05] MEDS: clonazePAM 0.5 MG TABLET PO SCH ×2 (08:34→19:35)
[2018-08-05] MEDS: NICOTINE 21MG PATCH. TD PRN (10:06)
[2018-08-05 16:12] VITALS: BP 116/81
[2018-08-05] MEDS: risperiDONE 2 MG TABLET. PO SCH (19:33)
[2018-08-05] MEDS: cloZAPine 25 MG TABLET PO SCH (19:33)
[2018-08-05] MEDS: DIVALPROEX ER 500 MG TAB.ER.24H PO SCH (19:34)
--- NOTE | 2018-08-05 22:45 | PDOC ---
Exam Note: Nguyễn Note: Please also refer to the separate dictated note~for this date of service dictated separately.~Patient seen individually. Discussed the patient with Nursing staff reviewed the chart.~Reviewed interim history and current functioning. Reviewed vital signs,~Labs/ Radiology~and current medications noted below. Continue current treatment with the changes noted in the dictated addendum note Assessment: Vital Signs: Vital Signs Date Time Temp Pulse Resp B/P (MAP) Pulse Ox O2 Delivery O2 Flow Rate FiO2 08/05/18 16:12 98.5 97 20 116/81 (93) 97 08/04/18 05:42 Room Air I&O Intake and Output 08/05/18 07:01 Intake Total 1060 ml Output Total 700 ml Balance 360 ml Intake Oral 1060 ml Output Urine Total 700 ml # Bowel Movements 1 Current Medications: Meds: Current Medications Acetaminophen (Tylenol) 650 mg PRN Q6HRS PRN PO PAIN / TEMP Last administered on 07/09/18at 22:06; Start 06/21/18 at 20:15 Clonazepam (KlonoPIN) 1 mg BID PO Last administered on 08/05/18at 19:35; Start 06/21/18 at 21:00 Gabapentin (Neurontin) 900 mg QID PO Last administered on 07/08/18at 16:58; Start 06/21/18 at 21:00; Stop 07/08/18 at 17:47; Status DC Al Hydroxide/Mg Hydroxide (Mylanta Plus Xs) 15 ml PRN AFTMEALHC PRN PO GI SYMPTOMS; Start 06/21/18 at 20:15 Magnesium Hydroxide (Milk Of Magnesia) 400 mg PRN DAILY PRN PO CONSTIPATION Last administered on 07/31/18at 22:24; Start 06/21/18 at 20:15 Multi-Ingredient Ointment (Analgesic [place]) 1 gerri PRN QID PRN TP MUSCLE PAIN; Start 06/21/18 at 20:15 Oxybutynin Chloride (Ditropan) 2.5 mg BID PO Last administered on 08/05/18at 19 :34; Start 06/21/18 at 21:00 Potassium Chloride (Klor-Con) 20 meq DAILY PO Last administered on 08/05/18at 08:01; Start 06/22/18 at 09:00 Tamsulosin HCl (Flomax) 0.8 mg DAILY PO Last administered on 08/05/18 08:01; Start 06/22/18 at 09:00 Amlodipine Besylate (Norvasc) 10 mg DAILY PO Last administered on 08/05/18 08 :03; Start 06/22/18 at 09:00 Baclofen (Lioresal) 10 mg QID PO Last administered on 07/07/18 19:36; Start 06/21/18 at 21:00; Stop 07/08/18 at 11:48; Status DC Bisacodyl (Dulcolax Supp) 10 mg PRN DAILY PRN [place] CONSTIPATION; Start 06/21/18 at 20:45 Buspirone HCl (Buspar) 10 mg TID PO Last administered on 08/05/18 19:33; Start 06/21/18 at 21:00 Divalproex Sodium (Depakote Er) 1,500 mg HS PO Last administered on 08/05/18 19:34; Start 06/21/18 at 21:00 Non-Formulary Medication (Gabapentin ) 800 mg QID PO ; Start 06/21/18 at 21:00 ; Status UNV Levothyroxine Sodium (Synthroid) 50 mcg DAILY06 PO Last administered on 06:12; Start 06/22/18 at 06:00 Multivitamins/ Calcium (Thera-M Plus) 1 tab DAILY PO Last administered on 08/05 08:02; Start 06/22/18 at 09:00 Olanzapine (ZyPREXA ZYDIS) 2.5 mg PRN Q2HR PRN PO PSYCHOSIS Last administered on 07/27/18at 20:29; Start 06/21/18 at 20:45 Olanzapine (ZyPREXA) 5 mg BID PO Last administered on 06/23/18 08:47; Start 06/21/18 at 21:00; Stop 06/23/18 at 17:06; Status DC Risperidone (RisperDAL) 1.5 mg HS PO Last administered on 06/23/18 19:45; Start 06/21/18 at 21:00; Stop 06/24/18 at 11:06; Status DC Trazodone HCl (Desyrel) 50 mg PRN QHS PRN PO INSOMNIA Last administered on 07/11 20:19; Start 06/21/18 at 21:00 Nicotine (Nicoderm Cq 7mg) 1 patch PRN DAILY PRN TD SMOKING CESSATION; Start 06/21/18 at 23:30; Stop 07/09/18 at 05:39; Status DC Vitamin D (Vitamin D3) 50,000 unit WEEKLY PO Last administered on 08/04/18at 08 :58; Start 06/23/18 at 16:30 Olanzapine (ZyPREXA) 5 mg DAILY PO Last administered on 06/25/18at 08:04; Start 06/24/18 at 09:00; Stop 06/26/18 at 00:00; Status DC Risperidone (RisperDAL) 1.75 mg HS PO Last administered on 07/06/18at 20:08; Start 06/24/18 at 21:00; Stop 07/07/18 at 12:40; Status DC Risperidone (RisperDAL) 2 mg HS PO Last administered on 08/05/18at 19:33; Start 07/07/18 at 21:00 Gabapentin (Neurontin) 600 mg QID PO Last administered on 08/05/18at 19:35; Start 07/08/18 at 21:00 Nicotine (Nicoderm Cq 21mg) 1 patch DAILY TD Last administered on 07/30/18at 08 :54; Start 07/09/18 at 09:00; Stop 07/31/18 at 04:33; Status DC Clozapine (Clozaril) 25 mg DAILY PO Last administered on 07/27/18at 09:38; Start 07/13/18 at 09:00; Stop 07/27/18 at 16:52; Status DC Vitamin D (Vitamin D3) 50,000 unit WEEKLY PO ; Start 07/24/18 at 09:00; Status Cancel Clozapine (Clozaril) 50 mg DAILY PO Last administered on 08/03/18at 07:51; Start 07/28/18 at 09:00; Stop 08/03/18 at 21:09; Status DC Nicotine (Nicoderm Cq 21mg) 1 patch PRN DAILY PRN TD SMOKING CESSATION Last administered on 08/05/18at 10:06; Start 07/31/18 at 04:45 Clozapine (Clozaril) 75 mg HS PO Last administered on 08/05/18at 19:33; Start 08/04/18 at 21:00 Clozapine (Clozaril) 25 mg 1X ONCE PO Last administered on 08/03/18at 21:25; Start 08/03/18 at 21:30; Stop 08/03/18 at 21:31; Status DC Active Scripts Active Reported Zyprexa (Olanzapine) 5 Mg Tablet 5 Mg PO BID NICODERM CQ 7mg (Nicotine) 1 Each Patch.td24 1 Patch TD PRN DAILY PRN Trazodone Hcl 50 Mg Tablet 50 Mg PO PRN QHS PRN Risperdal (Risperidone) 1 Mg Tablet 1.5 Mg PO HS Analgesic [place] (Methyl Salicylate/Menthol) 28 Gm Oint...g. 1 Gerri TP PRN QID PRN Milk Of Magnesia (Magnesium Hydroxide) 400 Mg/5 Ml Oral.susp 400 Mg PO PRN DAILY PRN Mag-Al Plus Xs Suspension (Mag Hydrox/Al Hydrox/Simeth) 30 Ml Oral.susp 15 Ml PO PRN AFTMEALHC PRN Buspirone Hcl 10 Mg Tablet 10 Mg PO TID Baclofen 10 Mg Tablet 10 Mg PO QID Gabapentin 100 Mg Capsule 100 Mg PO QID Gabapentin 800 Mg Tablet 800 Mg PO QID Levothyroxine Sodium 50 Mcg Tablet 50 Mcg PO DAILYAC Klonopin (Clonazepam) 0.5 Mg Tablet 1 Mg PO BID Norvasc (Amlodipine Besylate) 10 Mg Tablet 10 Mg PO DAILY Oxybutynin Chloride 5 Mg Tablet 2.5 Mg PO BID Depakote Er (Divalproex Sodium) 500 Mg Tab.er.24h 1,500 Mg PO HS Klor-Con M20 (Potassium Chloride) 20 Meq Tab.er.prt 20 Meq PO DAILY Cymbalta (Duloxetine Hcl) 60 Mg Capsule.dr 60 Mg PO DAILY Multivitamin with Iron Tablet (Multivitamin/Iron/Folic Acid) 1 Each Tablet 1 Tab PO DAILY Flomax (Tamsulosin Hcl) 0.4 Mg Cap.er.24h 0.8 Mg PO DAILY Olanzapine 5 Mg Tablet 2.5 Mg PO PRN Q2HR PRN MDD 10mg/ 24 hrs Remeron (Mirtazapine) 15 Mg Tablet 7.5 Mg PO HS Bisacodyl 10 Mg Supp.rect 10 Mg RC PRN DAILY PRN Tylenol (Acetaminophen) 325 Mg Tablet 650 Mg PO PRN Q6HRS PRN I have reviewed the current psychotropics carefully including drug interactions. Risk benefit ratio favors no change other than as noted in my dictated progress note. Diagnosis: Problems: (1) Depression (2) Schizoaffective disorder (3) Anxiety disorder (4) Impulse control disorder (5) Schizophrenia, paranoid, chronic with acute exacerbation CATHY EMERY MD Aug 05, 2018 22:45
[2018-08-06] MEDS: LEVOTHYROXINE 50 MCG TABLET PO SCH (04:56)
[2018-08-06 06:05] VITALS: BP 135/95
[2018-08-06] MEDS: OXYBUTYNIN CHLORIDE 5 MG TABLET PO SCH ×2 (07:35→19:48)
[2018-08-06] MEDS: MULTIVITAMIN with MINERAL TABLET. PO SCH (07:35)
[2018-08-06] MEDS: GABAPENTIN 300 MG CAPSULE. PO SCH ×4 (07:35→19:47)
[2018-08-06] MEDS: POTASSIUM CHLORIDE 20 MEQ TABLET.ER. PO SCH (07:36)
[2018-08-06] MEDS: TAMSULOSIN 0.4 MG CAP.ER.24H. PO SCH (07:36)
[2018-08-06] MEDS: busPIRone 10 MG TABLET. PO SCH ×3 (07:36→19:47)
[2018-08-06] MEDS: amLODIPine BESYLATE 10 MG TABLET PO SCH (07:36)
[2018-08-06] MEDS: clonazePAM 0.5 MG TABLET PO SCH ×2 (07:37→19:47)
--- NOTE | 2018-08-06 08:04 | PDOC ---
Exam Note: Nguyễn Note: S/O: This is a late entry of 08/04/2018. This note covers elements not covered in my initial note. Met with the patient in the evening. The patient slept seven hours previous night. I met with him in his room at some length. He was arguing with nursing staff in the morning, later pleasant, compliant. ROS: Ambulation impaired with walker. No CV, , Eye, ENT, pulmonary system symptoms on review. He was quite animated, verbal, talking about discharge plans, inappropriate, wanting to smoke and all kinds of circumstantial thinking about this. MSE: Oriented to himself. Speech is coherent. Abstraction is fair. Computation is impaired. Language function is intact. Attention span is short. Mood and affect remain somewhat labile, still paranoid. Labs: Reviewed. Imp: Schizoaffective disorder bipolar type, mixed with psychotic features. Cognitive disorder unspecified. Anxiety disorder unspecified. Rest unchanged from my initial note. Plan: No change from initial note and we will continue to gradually increase the Clozaril as tolerated with labs and absolute neutrophil count. Assessment: Vital Signs: Vital Signs Date Time Temp Pulse Resp B/P (MAP) Pulse Ox O2 Delivery O2 Flow Rate FiO2 08/06/18 07:36 96 135/95 08/06/18 06:05 97.6 21 95 08/04/18 05:42 Room Air I&O Intake and Output 08/06/18 07:01 Intake Total 1320 ml Balance 1320 ml Intake Oral 1320 ml Current Medications: Meds: Current Medications Acetaminophen (Tylenol) 650 mg PRN Q6HRS PRN PO PAIN / TEMP Last administered on 07/09/18at 22:06; Start 06/21/18 at 20:15 Clonazepam (KlonoPIN) 1 mg BID PO Last administered on 08/06/18at 07:37; Start 06/21/18 at 21:00 Gabapentin (Neurontin) 900 mg QID PO Last administered on 07/08/18at 16:58; Start 06/21/18 at 21:00; Stop 07/08/18 at 17:47; Status DC Al Hydroxide/Mg Hydroxide (Mylanta Plus Xs) 15 ml PRN AFTMEALHC PRN PO GI SYMPTOMS; Start 06/21/18 at 20:15 Magnesium Hydroxide (Milk Of Magnesia) 400 mg PRN DAILY PRN PO CONSTIPATION Last administered on 07/31/18 22:24; Start 06/21/18 at 20:15 Multi-Ingredient Ointment (Analgesic [place]) 1 gerri PRN QID PRN TP MUSCLE PAIN; Start 06/21/18 at 20:15 Oxybutynin Chloride (Ditropan) 2.5 mg BID PO Last administered on 08/06/18 07 :35; Start 06/21/18 at 21:00 Potassium Chloride (Klor-Con) 20 meq DAILY PO Last administered on 08/06/18 07:36; Start 06/22/18 at 09:00 Tamsulosin HCl (Flomax) 0.8 mg DAILY PO Last administered on 08/06/18 07:36; Start 06/22/18 at 09:00 Amlodipine Besylate (Norvasc) 10 mg DAILY PO Last administered on 08/06/18 07 :36; Start 06/22/18 at 09:00 Baclofen (Lioresal) 10 mg QID PO Last administered on 07/07/18 19:36; Start 06/21/18 at 21:00; Stop 07/08/18 at 11:48; Status DC Bisacodyl (Dulcolax Supp) 10 mg PRN DAILY PRN [place] CONSTIPATION; Start 06/21/18 at 20:45 Buspirone HCl (Buspar) 10 mg TID PO Last administered on 08/06/18 07:36; Start 06/21/18 at 21:00 Divalproex Sodium (Depakote Er) 1,500 mg HS PO Last administered on 08/05/18 19:34; Start 06/21/18 at 21:00 Non-Formulary Medication (Gabapentin ) 800 mg QID PO ; Start 06/21/18 at 21:00 ; Status UNV Levothyroxine Sodium (Synthroid) 50 mcg DAILY06 PO Last administered on 04:56; Start 06/22/18 at 06:00 Multivitamins/ Calcium (Thera-M Plus) 1 tab DAILY PO Last administered on 08/06 07:35; Start 06/22/18 at 09:00 Olanzapine (ZyPREXA ZYDIS) 2.5 mg PRN Q2HR PRN PO PSYCHOSIS Last administered on 12/18/18at 20:29; Start 06/21/18 at 20:45 Olanzapine (ZyPREXA) 5 mg BID PO Last administered on 06/23/18at 08:47; Start 06/21/18 at 21:00; Stop 06/23/18 at 17:06; Status DC Risperidone (RisperDAL) 1.5 mg HS PO Last administered on 06/23/18at 19:45; Start 06/21/18 at 21:00; Stop 06/24/18 at 11:06; Status DC Trazodone HCl (Desyrel) 50 mg PRN QHS PRN PO INSOMNIA Last administered on 07/11at 20:19; Start 06/21/18 at 21:00 Nicotine (Nicoderm Cq 7mg) 1 patch PRN DAILY PRN TD SMOKING CESSATION; Start 06/21/18 at 23:30; Stop 07/09/18 at 05:39; Status DC Vitamin D (Vitamin D3) 50,000 unit WEEKLY PO Last administered on 08/04/18at 08 :58; Start 06/23/18 at 16:30 Olanzapine (ZyPREXA) 5 mg DAILY PO Last administered on 06/25/18at 08:04; Start 06/24/18 at 09:00; Stop 06/26/18 at 00:00; Status DC Risperidone (RisperDAL) 1.75 mg HS PO Last administered on 07/06/18at 20:08; Start 06/24/18 at 21:00; Stop 07/07/18 at 12:40; Status DC Risperidone (RisperDAL) 2 mg HS PO Last administered on 08/05/18at 19:33; Start 07/07/18 at 21:00 Gabapentin (Neurontin) 600 mg QID PO Last administered on 08/06/18at 07:35; Start 07/08/18 at 21:00 Nicotine (Nicoderm Cq 21mg) 1 patch DAILY TD Last administered on 07/30/18at 08 :54; Start 07/09/18 at 09:00; Stop 07/31/18 at 04:33; Status DC Clozapine (Clozaril) 25 mg DAILY PO Last administered on 07/27/18at 09:38; Start 07/13/18 at 09:00; Stop 07/27/18 at 16:52; Status DC Vitamin D (Vitamin D3) 50,000 unit WEEKLY PO ; Start 07/24/18 at 09:00; Status Cancel Clozapine (Clozaril) 50 mg DAILY PO Last administered on 08/03/18at 07:51; Start 07/28/18 at 09:00; Stop 08/03/18 at 21:09; Status DC Nicotine (Nicoderm Cq 21mg) 1 patch PRN DAILY PRN TD SMOKING CESSATION Last administered on 08/05/18at 10:06; Start 07/31/18 at 04:45 Clozapine (Clozaril) 75 mg HS PO Last administered on 08/05/18at 19:33; Start 08/04/18 at 21:00 Clozapine (Clozaril) 25 mg 1X ONCE PO Last administered on 08/03/18at 21:25; Start 08/03/18 at 21:30; Stop 08/03/18 at 21:31; Status DC Active Scripts Active Reported Zyprexa (Olanzapine) 5 Mg Tablet 5 Mg PO BID NICODERM CQ 7mg (Nicotine) 1 Each Patch.td24 1 Patch TD PRN DAILY PRN Trazodone Hcl 50 Mg Tablet 50 Mg PO PRN QHS PRN Risperdal (Risperidone) 1 Mg Tablet 1.5 Mg PO HS Analgesic [place] (Methyl Salicylate/Menthol) 28 Gm Oint...g. 1 Gerri TP PRN QID PRN Milk Of Magnesia (Magnesium Hydroxide) 400 Mg/5 Ml Oral.susp 400 Mg PO PRN DAILY PRN Mag-Al Plus Xs Suspension (Mag Hydrox/Al Hydrox/Simeth) 30 Ml Oral.susp 15 Ml PO PRN AFTMEALHC PRN Buspirone Hcl 10 Mg Tablet 10 Mg PO TID Baclofen 10 Mg Tablet 10 Mg PO QID Gabapentin 100 Mg Capsule 100 Mg PO QID Gabapentin 800 Mg Tablet 800 Mg PO QID Levothyroxine Sodium 50 Mcg Tablet 50 Mcg PO DAILYAC Klonopin (Clonazepam) 0.5 Mg Tablet 1 Mg PO BID Norvasc (Amlodipine Besylate) 10 Mg Tablet 10 Mg PO DAILY Oxybutynin Chloride 5 Mg Tablet 2.5 Mg PO BID Depakote Er (Divalproex Sodium) 500 Mg Tab.er.24h 1,500 Mg PO HS Klor-Con M20 (Potassium Chloride) 20 Meq Tab.er.prt 20 Meq PO DAILY Cymbalta (Duloxetine Hcl) 60 Mg Capsule.dr 60 Mg PO DAILY Multivitamin with Iron Tablet (Multivitamin/Iron/Folic Acid) 1 Each Tablet 1 Tab PO DAILY Flomax (Tamsulosin Hcl) 0.4 Mg Cap.er.24h 0.8 Mg PO DAILY Olanzapine 5 Mg Tablet 2.5 Mg PO PRN Q2HR PRN MDD 10mg/ 24 hrs Remeron (Mirtazapine) 15 Mg Tablet 7.5 Mg PO HS Bisacodyl 10 Mg Supp.rect 10 Mg RC PRN DAILY PRN Tylenol (Acetaminophen) 325 Mg Tablet 650 Mg PO PRN Q6HRS PRN I have reviewed the current psychotropics carefully including drug interactions. Risk benefit ratio favors no change other than as noted in my dictated progress note. Diagnosis: Problems: (1) Depression (2) Schizoaffective disorder (3) Anxiety disorder (4) Impulse control disorder (5) Schizophrenia, paranoid, chronic with acute exacerbation CATHY EMERY MD Aug 06, 2018 08:04
[2018-08-06 16:41] VITALS: BP 130/87
[2018-08-06] MEDS: risperiDONE 2 MG TABLET. PO SCH (19:47)
[2018-08-06] MEDS: cloZAPine 25 MG TABLET PO SCH (19:47)
[2018-08-06] MEDS: DIVALPROEX ER 500 MG TAB.ER.24H PO SCH (19:48)
--- NOTE | 2018-08-06 22:54 | PDOC ---
Exam Note: Nguyễn Note: Please also refer to the separate dictated note~for this date of service dictated separately.~Patient seen individually. Discussed the patient with Nursing staff reviewed the chart.~Reviewed interim history and current functioning. Reviewed vital signs,~Labs/ Radiology~and current medications noted below. Continue current treatment with the changes noted in the dictated addendum note Assessment: Vital Signs: Vital Signs Date Time Temp Pulse Resp B/P (MAP) Pulse Ox O2 Delivery O2 Flow Rate FiO2 08/06/18 16:41 97.3 83 18 130/87 (101) 99 Room Air I&O Intake and Output 08/06/18 07:01 Intake Total 1320 ml Balance 1320 ml Intake Oral 1320 ml Current Medications: Meds: Current Medications Acetaminophen (Tylenol) 650 mg PRN Q6HRS PRN PO PAIN / TEMP Last administered on 07/09/18at 22:06; Start 06/21/18 at 20:15 Clonazepam (KlonoPIN) 1 mg BID PO Last administered on 08/06/18at 19:47; Start 06/21/18 at 21:00 Gabapentin (Neurontin) 900 mg QID PO Last administered on 07/08/18at 16:58; Start 06/21/18 at 21:00; Stop 07/08/18 at 17:47; Status DC Al Hydroxide/Mg Hydroxide (Mylanta Plus Xs) 15 ml PRN AFTMEALHC PRN PO GI SYMPTOMS; Start 06/21/18 at 20:15 Magnesium Hydroxide (Milk Of Magnesia) 400 mg PRN DAILY PRN PO CONSTIPATION Last administered on 07/31/18at 22:24; Start 06/21/18 at 20:15 Multi-Ingredient Ointment (Analgesic [place]) 1 gerri PRN QID PRN TP MUSCLE PAIN; Start 06/21/18 at 20:15 Oxybutynin Chloride (Ditropan) 2.5 mg BID PO Last administered on 08/06/18at 19 :48; Start 06/21/18 at 21:00 Potassium Chloride (Klor-Con) 20 meq DAILY PO Last administered on 08/06/18 07:36; Start 06/22/18 at 09:00 Tamsulosin HCl (Flomax) 0.8 mg DAILY PO Last administered on 08/06/18at 07:36; Start 06/22/18 at 09:00 Amlodipine Besylate (Norvasc) 10 mg DAILY PO Last administered on 08/06/18 07 :36; Start 06/22/18 at 09:00 Baclofen (Lioresal) 10 mg QID PO Last administered on 07/07/18 19:36; Start 06/21/18 at 21:00; Stop 07/08/18 at 11:48; Status DC Bisacodyl (Dulcolax Supp) 10 mg PRN DAILY PRN [place] CONSTIPATION; Start 06/21/18 at 20:45 Buspirone HCl (Buspar) 10 mg TID PO Last administered on 08/06/18 19:47; Start 06/21/18 at 21:00 Divalproex Sodium (Depakote Er) 1,500 mg HS PO Last administered on 08/06/18 19:48; Start 06/21/18 at 21:00 Non-Formulary Medication (Gabapentin ) 800 mg QID PO ; Start 06/21/18 at 21:00 ; Status UNV Levothyroxine Sodium (Synthroid) 50 mcg DAILY06 PO Last administered on 04:56; Start 06/22/18 at 06:00 Multivitamins/ Calcium (Thera-M Plus) 1 tab DAILY PO Last administered on 08/06 07:35; Start 06/22/18 at 09:00 Olanzapine (ZyPREXA ZYDIS) 2.5 mg PRN Q2HR PRN PO PSYCHOSIS Last administered on 07/27/18at 20:29; Start 06/21/18 at 20:45 Olanzapine (ZyPREXA) 5 mg BID PO Last administered on 06/23/18 08:47; Start 06/21/18 at 21:00; Stop 06/23/18 at 17:06; Status DC Risperidone (RisperDAL) 1.5 mg HS PO Last administered on 06/23/18at 19:45; Start 06/21/18 at 21:00; Stop 06/24/18 at 11:06; Status DC Trazodone HCl (Desyrel) 50 mg PRN QHS PRN PO INSOMNIA Last administered on 07/11 20:19; Start 06/21/18 at 21:00 Nicotine (Nicoderm Cq 7mg) 1 patch PRN DAILY PRN TD SMOKING CESSATION; Start 06/21/18 at 23:30; Stop 07/09/18 at 05:39; Status DC Vitamin D (Vitamin D3) 50,000 unit WEEKLY PO Last administered on 08/04/18at 08 :58; Start 06/23/18 at 16:30 Olanzapine (ZyPREXA) 5 mg DAILY PO Last administered on 06/25/18at 08:04; Start 06/24/18 at 09:00; Stop 06/26/18 at 00:00; Status DC Risperidone (RisperDAL) 1.75 mg HS PO Last administered on 07/06/18at 20:08; Start 06/24/18 at 21:00; Stop 07/07/18 at 12:40; Status DC Risperidone (RisperDAL) 2 mg HS PO Last administered on 08/06/18at 19:47; Start 07/07/18 at 21:00 Gabapentin (Neurontin) 600 mg QID PO Last administered on 08/06/18 19:47; Start 07/08/18 at 21:00 Nicotine (Nicoderm Cq 21mg) 1 patch DAILY TD Last administered on 07/30/18at 08 :54; Start 07/09/18 at 09:00; Stop 07/31/18 at 04:33; Status DC Clozapine (Clozaril) 25 mg DAILY PO Last administered on 07/27/18at 09:38; Start 07/13/18 at 09:00; Stop 07/27/18 at 16:52; Status DC Vitamin D (Vitamin D3) 50,000 unit WEEKLY PO ; Start 07/24/18 at 09:00; Status Cancel Clozapine (Clozaril) 50 mg DAILY PO Last administered on 08/03/18at 07:51; Start 07/28/18 at 09:00; Stop 08/03/18 at 21:09; Status DC Nicotine (Nicoderm Cq 21mg) 1 patch PRN DAILY PRN TD SMOKING CESSATION Last administered on 08/05/18at 10:06; Start 07/31/18 at 04:45 Clozapine (Clozaril) 75 mg HS PO Last administered on 08/06/18at 19:47; Start 08/04/18 at 21:00 Clozapine (Clozaril) 25 mg 1X ONCE PO Last administered on 08/03/18at 21:25; Start 08/03/18 at 21:30; Stop 08/03/18 at 21:31; Status DC Active Scripts Active Reported Zyprexa (Olanzapine) 5 Mg Tablet 5 Mg PO BID NICODERM CQ 7mg (Nicotine) 1 Each Patch.td24 1 Patch TD PRN DAILY PRN Trazodone Hcl 50 Mg Tablet 50 Mg PO PRN QHS PRN Risperdal (Risperidone) 1 Mg Tablet 1.5 Mg PO HS Analgesic [place] (Methyl Salicylate/Menthol) 28 Gm Oint...g. 1 Gerri TP PRN QID PRN Milk Of Magnesia (Magnesium Hydroxide) 400 Mg/5 Ml Oral.susp 400 Mg PO PRN DAILY PRN Mag-Al Plus Xs Suspension (Mag Hydrox/Al Hydrox/Simeth) 30 Ml Oral.susp 15 Ml PO PRN AFTMEALHC PRN Buspirone Hcl 10 Mg Tablet 10 Mg PO TID Baclofen 10 Mg Tablet 10 Mg PO QID Gabapentin 100 Mg Capsule 100 Mg PO QID Gabapentin 800 Mg Tablet 800 Mg PO QID Levothyroxine Sodium 50 Mcg Tablet 50 Mcg PO DAILYAC Klonopin (Clonazepam) 0.5 Mg Tablet 1 Mg PO BID Norvasc (Amlodipine Besylate) 10 Mg Tablet 10 Mg PO DAILY Oxybutynin Chloride 5 Mg Tablet 2.5 Mg PO BID Depakote Er (Divalproex Sodium) 500 Mg Tab.er.24h 1,500 Mg PO HS Klor-Con M20 (Potassium Chloride) 20 Meq Tab.er.prt 20 Meq PO DAILY Cymbalta (Duloxetine Hcl) 60 Mg Capsule.dr 60 Mg PO DAILY Multivitamin with Iron Tablet (Multivitamin/Iron/Folic Acid) 1 Each Tablet 1 Tab PO DAILY Flomax (Tamsulosin Hcl) 0.4 Mg Cap.er.24h 0.8 Mg PO DAILY Olanzapine 5 Mg Tablet 2.5 Mg PO PRN Q2HR PRN MDD 10mg/ 24 hrs Remeron (Mirtazapine) 15 Mg Tablet 7.5 Mg PO HS Bisacodyl 10 Mg Supp.rect 10 Mg RC PRN DAILY PRN Tylenol (Acetaminophen) 325 Mg Tablet 650 Mg PO PRN Q6HRS PRN I have reviewed the current psychotropics carefully including drug interactions. Risk benefit ratio favors no change other than as noted in my dictated progress note. Diagnosis: Problems: (1) Depression (2) Schizoaffective disorder (3) Anxiety disorder (4) Impulse control disorder (5) Schizophrenia, paranoid, chronic with acute exacerbation CATHY EMERY MD Aug 06, 2018 22:54
[2018-08-07] MEDS: LEVOTHYROXINE 50 MCG TABLET PO SCH (04:54)
[2018-08-07 05:44] VITALS: BP 127/86
--- NOTE | 2018-08-07 07:32 | PN ---
DATE: 08/05/2018 PSYCHIATRIC PROGRESS NOTE This late entry 08/05/2018 covers elements not covered in my initial note. SUBJECTIVE: I met with the patient in the evening. The patient slept 7-1/2 hours previous evening. I met with him in his room at length. He has remained somewhat withdrawn, paranoid at times, but better than before. REVIEW OF SYSTEMS: Ambulation impaired with walker. No CV, , pulmonary, eye, ENT system symptoms on review. MENTAL STATUS EXAM: Oriented to himself and situation. Speech is coherent, has some latency. Abstraction fair, computation impaired, language function intact. He is quite animated, as I met with him. LABORATORY DATA: Reviewed. IMPRESSION: Schizoaffective disorder, bipolar type, mixed with psychotic features. Rest unchanged. PLAN: No change from initial note. Continue to increase Clozaril gradually depending on labs. MAN Ty EMERY MD DR: SARINA/nilda JOB#: [id number] / [id number]
[2018-08-07] MEDS: OXYBUTYNIN CHLORIDE 5 MG TABLET PO SCH ×2 (07:38→19:48)
[2018-08-07] MEDS: amLODIPine BESYLATE 10 MG TABLET PO SCH (07:38)
[2018-08-07] MEDS: MULTIVITAMIN with MINERAL TABLET. PO SCH (07:38)
[2018-08-07] MEDS: busPIRone 10 MG TABLET. PO SCH ×3 (07:38→19:47)
[2018-08-07] MEDS: GABAPENTIN 300 MG CAPSULE. PO SCH ×4 (07:38→19:48)
[2018-08-07] MEDS: POTASSIUM CHLORIDE 20 MEQ TABLET.ER. PO SCH (07:38)
[2018-08-07] MEDS: TAMSULOSIN 0.4 MG CAP.ER.24H. PO SCH (07:39)
[2018-08-07] MEDS: clonazePAM 0.5 MG TABLET PO SCH ×2 (07:40→19:48)
[2018-08-07 15:47] VITALS: BP 135/91
[2018-08-07] MEDS: DIVALPROEX ER 500 MG TAB.ER.24H PO SCH (19:47)
[2018-08-07] MEDS: cloZAPine 25 MG TABLET PO SCH (19:47)
[2018-08-07] MEDS: risperiDONE 2 MG TABLET. PO SCH (19:48)
[2018-08-07 20:33] VITALS: BP 137/89
[2018-08-07 20:34] VITALS: BP_SYST 121; BP_SYST 126; BP_DIAS 84; BP_DIAS 87
--- NOTE | 2018-08-07 22:05 | PDOC ---
Exam Note: Nguyễn Note: Please also refer to the separate dictated note~for this date of service dictated separately.~Patient seen individually. Discussed the patient with Nursing staff reviewed the chart.~Reviewed interim history and current functioning. Reviewed vital signs,~Labs/ Radiology~and current medications noted below. Continue current treatment with the changes noted in the dictated addendum note Assessment: Vital Signs: Vital Signs Date Time Temp Pulse Resp B/P (MAP) Pulse Ox O2 Delivery O2 Flow Rate FiO2 08/07/18 20:34 100 126/87 (100) 08/07/18 15:47 97.1 20 97 Room Air I&O Intake and Output 08/07/18 07:01 Intake Total 720 ml Balance 720 ml Intake Oral 720 ml Current Medications: Meds: Current Medications Acetaminophen (Tylenol) 650 mg PRN Q6HRS PRN PO PAIN / TEMP Last administered on 07/09/18at 22:06; Start 06/21/18 at 20:15 Clonazepam (KlonoPIN) 1 mg BID PO Last administered on 08/07/18at 19:48; Start 06/21/18 at 21:00 Gabapentin (Neurontin) 900 mg QID PO Last administered on 07/08/18at 16:58; Start 06/21/18 at 21:00; Stop 07/08/18 at 17:47; Status DC Al Hydroxide/Mg Hydroxide (Mylanta Plus Xs) 15 ml PRN AFTMEALHC PRN PO GI SYMPTOMS; Start 06/21/18 at 20:15 Magnesium Hydroxide (Milk Of Magnesia) 400 mg PRN DAILY PRN PO CONSTIPATION Last administered on 07/31/18at 22:24; Start 06/21/18 at 20:15 Multi-Ingredient Ointment (Analgesic [place]) 1 gerri PRN QID PRN TP MUSCLE PAIN; Start 06/21/18 at 20:15 Oxybutynin Chloride (Ditropan) 2.5 mg BID PO Last administered on 08/07/18at 19 :48; Start 06/21/18 at 21:00 Potassium Chloride (Klor-Con) 20 meq DAILY PO Last administered on 08/07/18 07:38; Start 06/22/18 at 09:00 Tamsulosin HCl (Flomax) 0.8 mg DAILY PO Last administered on 08/07/18at 07:39; Start 06/22/18 at 09:00 Amlodipine Besylate (Norvasc) 10 mg DAILY PO Last administered on 08/07/18 07 :38; Start 06/22/18 at 09:00 Baclofen (Lioresal) 10 mg QID PO Last administered on 07/07/18at 19:36; Start 06/21/18 at 21:00; Stop 07/08/18 at 11:48; Status DC Bisacodyl (Dulcolax Supp) 10 mg PRN DAILY PRN [place] CONSTIPATION; Start 06/21/18 at 20:45 Buspirone HCl (Buspar) 10 mg TID PO Last administered on 08/07/18 19:47; Start 06/21/18 at 21:00 Divalproex Sodium (Depakote Er) 1,500 mg HS PO Last administered on 08/07/18 19:47; Start 06/21/18 at 21:00 Non-Formulary Medication (Gabapentin ) 800 mg QID PO ; Start 06/21/18 at 21:00 ; Status UNV Levothyroxine Sodium (Synthroid) 50 mcg DAILY06 PO Last administered on 04:54; Start 06/22/18 at 06:00 Multivitamins/ Calcium (Thera-M Plus) 1 tab DAILY PO Last administered on 08/07 07:38; Start 06/22/18 at 09:00 Olanzapine (ZyPREXA ZYDIS) 2.5 mg PRN Q2HR PRN PO PSYCHOSIS Last administered on 07/27/18at 20:29; Start 06/21/18 at 20:45 Olanzapine (ZyPREXA) 5 mg BID PO Last administered on 06/23/18at 08:47; Start 06/21/18 at 21:00; Stop 06/23/18 at 17:06; Status DC Risperidone (RisperDAL) 1.5 mg HS PO Last administered on 06/23/18at 19:45; Start 06/21/18 at 21:00; Stop 06/24/18 at 11:06; Status DC Trazodone HCl (Desyrel) 50 mg PRN QHS PRN PO INSOMNIA Last administered on 07/11 20:19; Start 06/21/18 at 21:00 Nicotine (Nicoderm Cq 7mg) 1 patch PRN DAILY PRN TD SMOKING CESSATION; Start 06/21/18 at 23:30; Stop 07/09/18 at 05:39; Status DC Vitamin D (Vitamin D3) 50,000 unit WEEKLY PO Last administered on 08/04/18at 08 :58; Start 06/23/18 at 16:30 Olanzapine (ZyPREXA) 5 mg DAILY PO Last administered on 06/25/18at 08:04; Start 06/24/18 at 09:00; Stop 06/26/18 at 00:00; Status DC Risperidone (RisperDAL) 1.75 mg HS PO Last administered on 07/06/18at 20:08; Start 06/24/18 at 21:00; Stop 07/07/18 at 12:40; Status DC Risperidone (RisperDAL) 2 mg HS PO Last administered on 08/07/18at 19:48; Start 07/07/18 at 21:00 Gabapentin (Neurontin) 600 mg QID PO Last administered on 08/07/18at 19:48; Start 07/08/18 at 21:00 Nicotine (Nicoderm Cq 21mg) 1 patch DAILY TD Last administered on 07/30/18at 08 :54; Start 07/09/18 at 09:00; Stop 07/31/18 at 04:33; Status DC Clozapine (Clozaril) 25 mg DAILY PO Last administered on 07/27/18at 09:38; Start 07/13/18 at 09:00; Stop 07/27/18 at 16:52; Status DC Vitamin D (Vitamin D3) 50,000 unit WEEKLY PO ; Start 07/24/18 at 09:00; Status Cancel Clozapine (Clozaril) 50 mg DAILY PO Last administered on 08/03/18at 07:51; Start 07/28/18 at 09:00; Stop 08/03/18 at 21:09; Status DC Nicotine (Nicoderm Cq 21mg) 1 patch PRN DAILY PRN TD SMOKING CESSATION Last administered on 08/05/18at 10:06; Start 07/31/18 at 04:45 Clozapine (Clozaril) 75 mg HS PO Last administered on 08/07/18at 19:47; Start 08/04/18 at 21:00 Clozapine (Clozaril) 25 mg 1X ONCE PO Last administered on 08/03/18at 21:25; Start 08/03/18 at 21:30; Stop 08/03/18 at 21:31; Status DC Active Scripts Active Reported Zyprexa (Olanzapine) 5 Mg Tablet 5 Mg PO BID NICODERM CQ 7mg (Nicotine) 1 Each Patch.td24 1 Patch TD PRN DAILY PRN Trazodone Hcl 50 Mg Tablet 50 Mg PO PRN QHS PRN Risperdal (Risperidone) 1 Mg Tablet 1.5 Mg PO HS Analgesic [place] (Methyl Salicylate/Menthol) 28 Gm Oint...g. 1 Gerri TP PRN QID PRN Milk Of Magnesia (Magnesium Hydroxide) 400 Mg/5 Ml Oral.susp 400 Mg PO PRN DAILY PRN Mag-Al Plus Xs Suspension (Mag Hydrox/Al Hydrox/Simeth) 30 Ml Oral.susp 15 Ml PO PRN AFTMEALHC PRN Buspirone Hcl 10 Mg Tablet 10 Mg PO TID Baclofen 10 Mg Tablet 10 Mg PO QID Gabapentin 100 Mg Capsule 100 Mg PO QID Gabapentin 800 Mg Tablet 800 Mg PO QID Levothyroxine Sodium 50 Mcg Tablet 50 Mcg PO DAILYAC Klonopin (Clonazepam) 0.5 Mg Tablet 1 Mg PO BID Norvasc (Amlodipine Besylate) 10 Mg Tablet 10 Mg PO DAILY Oxybutynin Chloride 5 Mg Tablet 2.5 Mg PO BID Depakote Er (Divalproex Sodium) 500 Mg Tab.er.24h 1,500 Mg PO HS Klor-Con M20 (Potassium Chloride) 20 Meq Tab.er.prt 20 Meq PO DAILY Cymbalta (Duloxetine Hcl) 60 Mg Capsule.dr 60 Mg PO DAILY Multivitamin with Iron Tablet (Multivitamin/Iron/Folic Acid) 1 Each Tablet 1 Tab PO DAILY Flomax (Tamsulosin Hcl) 0.4 Mg Cap.er.24h 0.8 Mg PO DAILY Olanzapine 5 Mg Tablet 2.5 Mg PO PRN Q2HR PRN MDD 10mg/ 24 hrs Remeron (Mirtazapine) 15 Mg Tablet 7.5 Mg PO HS Bisacodyl 10 Mg Supp.rect 10 Mg RC PRN DAILY PRN Tylenol (Acetaminophen) 325 Mg Tablet 650 Mg PO PRN Q6HRS PRN I have reviewed the current psychotropics carefully including drug interactions. Risk benefit ratio favors no change other than as noted in my dictated progress note. Diagnosis: Problems: (1) Depression (2) Schizoaffective disorder (3) Anxiety disorder (4) Impulse control disorder (5) Schizophrenia, paranoid, chronic with acute exacerbation CATHY EMERY MD Aug 07, 2018 22:05
[2018-08-08] MEDS: LEVOTHYROXINE 50 MCG TABLET PO SCH (06:13)
[2018-08-08 06:33] VITALS: BP 123/89
[2018-08-08] MEDS: OXYBUTYNIN CHLORIDE 5 MG TABLET PO SCH ×2 (07:38→19:37)
[2018-08-08] MEDS: GABAPENTIN 300 MG CAPSULE. PO SCH ×4 (07:38→19:36)
[2018-08-08] MEDS: TAMSULOSIN 0.4 MG CAP.ER.24H. PO SCH (07:38)
[2018-08-08] MEDS: amLODIPine BESYLATE 10 MG TABLET PO SCH (07:38)
[2018-08-08] MEDS: POTASSIUM CHLORIDE 20 MEQ TABLET.ER. PO SCH (07:39)
[2018-08-08] MEDS: MULTIVITAMIN with MINERAL TABLET. PO SCH (07:39)
[2018-08-08] MEDS: busPIRone 10 MG TABLET. PO SCH ×3 (07:39→19:38)
[2018-08-08] MEDS: clonazePAM 0.5 MG TABLET PO SCH ×2 (07:41→19:40)
[2018-08-08 16:14] VITALS: BP 127/82
[2018-08-08] MEDS: DIVALPROEX ER 500 MG TAB.ER.24H PO SCH (19:36)
[2018-08-08] MEDS: cloZAPine 25 MG TABLET PO SCH (19:36)
[2018-08-08] MEDS: risperiDONE 2 MG TABLET. PO SCH (19:37)
--- NOTE | 2018-08-08 23:15 | PDOC ---
Exam Note: Nguyễn Note: Please also refer to the separate dictated note~for this date of service dictated separately.~Patient seen individually. Discussed the patient with Nursing staff reviewed the chart.~Reviewed interim history and current functioning. Reviewed vital signs,~Labs/ Radiology~and current medications noted below. Continue current treatment with the changes noted in the dictated addendum note Assessment: Vital Signs: Vital Signs Date Time Temp Pulse Resp B/P (MAP) Pulse Ox O2 Delivery O2 Flow Rate FiO2 08/08/18 16:14 97.5 82 18 127/82 (97) 98 08/07/18 15:47 Room Air I&O Intake and Output 08/08/18 07:01 Intake Total 1140 ml Balance 1140 ml Intake Oral 1140 ml # Bowel Movements 1 Current Medications: Meds: Current Medications Acetaminophen (Tylenol) 650 mg PRN Q6HRS PRN PO PAIN / TEMP Last administered on 07/09/18 22:06; Start 06/21/18 at 20:15 Clonazepam (KlonoPIN) 1 mg BID PO Last administered on 08/08/18at 19:40; Start 06/21/18 at 21:00 Gabapentin (Neurontin) 900 mg QID PO Last administered on 07/08/18at 16:58; Start 06/21/18 at 21:00; Stop 07/08/18 at 17:47; Status DC Al Hydroxide/Mg Hydroxide (Mylanta Plus Xs) 15 ml PRN AFTMEALHC PRN PO GI SYMPTOMS; Start 06/21/18 at 20:15 Magnesium Hydroxide (Milk Of Magnesia) 400 mg PRN DAILY PRN PO CONSTIPATION Last administered on 07/31/18at 22:24; Start 06/21/18 at 20:15 Multi-Ingredient Ointment (Analgesic [place]) 1 gerri PRN QID PRN TP MUSCLE PAIN; Start 06/21/18 at 20:15 Oxybutynin Chloride (Ditropan) 2.5 mg BID PO Last administered on 08/08/18 19 :37; Start 06/21/18 at 21:00 Potassium Chloride (Klor-Con) 20 meq DAILY PO Last administered on 08/08/18 07:39; Start 06/22/18 at 09:00 Tamsulosin HCl (Flomax) 0.8 mg DAILY PO Last administered on 08/08/18 07:38; Start 06/22/18 at 09:00 Amlodipine Besylate (Norvasc) 10 mg DAILY PO Last administered on 08/08/18 07 :38; Start 06/22/18 at 09:00 Baclofen (Lioresal) 10 mg QID PO Last administered on 07/07/18 19:36; Start 06/21/18 at 21:00; Stop 07/08/18 at 11:48; Status DC Bisacodyl (Dulcolax Supp) 10 mg PRN DAILY PRN [place] CONSTIPATION; Start 06/21/18 at 20:45 Buspirone HCl (Buspar) 10 mg TID PO Last administered on 08/08/18 19:38; Start 06/21/18 at 21:00 Divalproex Sodium (Depakote Er) 1,500 mg HS PO Last administered on 08/08/18 19:36; Start 06/21/18 at 21:00 Non-Formulary Medication (Gabapentin ) 800 mg QID PO ; Start 06/21/18 at 21:00 ; Status UNV Levothyroxine Sodium (Synthroid) 50 mcg DAILY06 PO Last administered on 06:13; Start 06/22/18 at 06:00 Multivitamins/ Calcium (Thera-M Plus) 1 tab DAILY PO Last administered on 08/08 07:39; Start 06/22/18 at 09:00 Olanzapine (ZyPREXA ZYDIS) 2.5 mg PRN Q2HR PRN PO PSYCHOSIS Last administered on 07/27/18 20:29; Start 06/21/18 at 20:45 Olanzapine (ZyPREXA) 5 mg BID PO Last administered on 06/23/18 08:47; Start 06/21/18 at 21:00; Stop 06/23/18 at 17:06; Status DC Risperidone (RisperDAL) 1.5 mg HS PO Last administered on 06/23/18 19:45; Start 06/21/18 at 21:00; Stop 06/24/18 at 11:06; Status DC Trazodone HCl (Desyrel) 50 mg PRN QHS PRN PO INSOMNIA Last administered on 07/11 20:19; Start 06/21/18 at 21:00 Nicotine (Nicoderm Cq 7mg) 1 patch PRN DAILY PRN TD SMOKING CESSATION; Start 06/21/18 at 23:30; Stop 07/09/18 at 05:39; Status DC Vitamin D (Vitamin D3) 50,000 unit WEEKLY PO Last administered on 08/04/18at 08 :58; Start 06/23/18 at 16:30 Olanzapine (ZyPREXA) 5 mg DAILY PO Last administered on 06/25/18at 08:04; Start 06/24/18 at 09:00; Stop 06/26/18 at 00:00; Status DC Risperidone (RisperDAL) 1.75 mg HS PO Last administered on 07/06/18at 20:08; Start 06/24/18 at 21:00; Stop 07/07/18 at 12:40; Status DC Risperidone (RisperDAL) 2 mg HS PO Last administered on 08/08/18at 19:37; Start 07/07/18 at 21:00 Gabapentin (Neurontin) 600 mg QID PO Last administered on 08/08/18at 19:36; Start 07/08/18 at 21:00 Nicotine (Nicoderm Cq 21mg) 1 patch DAILY TD Last administered on 07/30/18at 08 :54; Start 07/09/18 at 09:00; Stop 07/31/18 at 04:33; Status DC Clozapine (Clozaril) 25 mg DAILY PO Last administered on 07/27/18at 09:38; Start 07/13/18 at 09:00; Stop 07/27/18 at 16:52; Status DC Vitamin D (Vitamin D3) 50,000 unit WEEKLY PO ; Start 07/24/18 at 09:00; Status Cancel Clozapine (Clozaril) 50 mg DAILY PO Last administered on 08/03/18at 07:51; Start 07/28/18 at 09:00; Stop 08/03/18 at 21:09; Status DC Nicotine (Nicoderm Cq 21mg) 1 patch PRN DAILY PRN TD SMOKING CESSATION Last administered on 08/05/18at 10:06; Start 07/31/18 at 04:45 Clozapine (Clozaril) 75 mg HS PO Last administered on 08/08/18at 19:36; Start 08/04/18 at 21:00 Clozapine (Clozaril) 25 mg 1X ONCE PO Last administered on 08/03/18at 21:25; Start 08/03/18 at 21:30; Stop 08/03/18 at 21:31; Status DC Active Scripts Active Reported Zyprexa (Olanzapine) 5 Mg Tablet 5 Mg PO BID NICODERM CQ 7mg (Nicotine) 1 Each Patch.td24 1 Patch TD PRN DAILY PRN Trazodone Hcl 50 Mg Tablet 50 Mg PO PRN QHS PRN Risperdal (Risperidone) 1 Mg Tablet 1.5 Mg PO HS Analgesic [place] (Methyl Salicylate/Menthol) 28 Gm Oint...g. 1 Gerri TP PRN QID PRN Milk Of Magnesia (Magnesium Hydroxide) 400 Mg/5 Ml Oral.susp 400 Mg PO PRN DAILY PRN Mag-Al Plus Xs Suspension (Mag Hydrox/Al Hydrox/Simeth) 30 Ml Oral.susp 15 Ml PO PRN AFTMEALHC PRN Buspirone Hcl 10 Mg Tablet 10 Mg PO TID Baclofen 10 Mg Tablet 10 Mg PO QID Gabapentin 100 Mg Capsule 100 Mg PO QID Gabapentin 800 Mg Tablet 800 Mg PO QID Levothyroxine Sodium 50 Mcg Tablet 50 Mcg PO DAILYAC Klonopin (Clonazepam) 0.5 Mg Tablet 1 Mg PO BID Norvasc (Amlodipine Besylate) 10 Mg Tablet 10 Mg PO DAILY Oxybutynin Chloride 5 Mg Tablet 2.5 Mg PO BID Depakote Er (Divalproex Sodium) 500 Mg Tab.er.24h 1,500 Mg PO HS Klor-Con M20 (Potassium Chloride) 20 Meq Tab.er.prt 20 Meq PO DAILY Cymbalta (Duloxetine Hcl) 60 Mg Capsule.dr 60 Mg PO DAILY Multivitamin with Iron Tablet (Multivitamin/Iron/Folic Acid) 1 Each Tablet 1 Tab PO DAILY Flomax (Tamsulosin Hcl) 0.4 Mg Cap.er.24h 0.8 Mg PO DAILY Olanzapine 5 Mg Tablet 2.5 Mg PO PRN Q2HR PRN MDD 10mg/ 24 hrs Remeron (Mirtazapine) 15 Mg Tablet 7.5 Mg PO HS Bisacodyl 10 Mg Supp.rect 10 Mg RC PRN DAILY PRN Tylenol (Acetaminophen) 325 Mg Tablet 650 Mg PO PRN Q6HRS PRN I have reviewed the current psychotropics carefully including drug interactions. Risk benefit ratio favors no change other than as noted in my dictated progress note. Diagnosis: Problems: (1) Depression (2) Schizoaffective disorder (3) Anxiety disorder (4) Impulse control disorder (5) Schizophrenia, paranoid, chronic with acute exacerbation CATHY EMERY MD Aug 08, 2018 23:15
[2018-08-09] MEDS: LEVOTHYROXINE 50 MCG TABLET PO SCH (05:04)
[2018-08-09 05:46] VITALS: BP 118/80
[2018-08-09 07:08] LABS: ALBUMIN 3.3 g/dL (3.4-5.0); ALBUMIN/GLOBULIN RATIO 0.8 (1.0-1.7); CALCIUM 8.6 mg/dL (8.5-10.1); CREATININE 0.7 mg/dL (0.7-1.3); GFR 116.2; POTASSIUM 4.1 mmol/L (3.5-5.1); TOTAL BILIRUBIN 0.3 mg/dL (0.2-1.0); TOTAL PROTEIN 7.4 g/dL (6.4-8.2)
[2018-08-09 07:11] LABS: BASO % 1 % (0-3); EOS # 0.2 x10^3/uL (0.0-0.7); EOS % 3 % (0-3); HEMOGLOBIN 15.5 g/dL (13.0-17.5); LYMPH % 27 % (24-48); MEAN CORPUSCULAR HEMOGLOBIN 30 pg (25-35); MEAN CORPUSCULAR HGB CONC 34 g/dL (31-37); MEAN CORPUSCULAR VOLUME 89 fL (79-100); MONO # 0.6 x10^3/uL (0.0-1.1); MONO % 8 % (0-9); NEUT # 4.6 x10^3uL (1.8-7.7); NEUT % 62 % (31-73); PLATELET COUNT 336 x10^3/uL (140-400); RED BLOOD COUNT 5.19 x10^6/uL (4.30-5.70); RED CELL DISTRIBUTION WIDTH 13.1 % (11.5-14.5); WHITE BLOOD COUNT 7.4 x10^3/uL (4.0-11.0)
[2018-08-09] MEDS: POTASSIUM CHLORIDE 20 MEQ TABLET.ER. PO SCH (08:00)
[2018-08-09] MEDS: GABAPENTIN 300 MG CAPSULE. PO SCH ×4 (08:00→20:27)
[2018-08-09] MEDS: clonazePAM 0.5 MG TABLET PO SCH ×2 (08:00→20:26)
[2018-08-09] MEDS: amLODIPine BESYLATE 10 MG TABLET PO SCH (08:01)
[2018-08-09] MEDS: OXYBUTYNIN CHLORIDE 5 MG TABLET PO SCH ×2 (08:01→20:26)
[2018-08-09] MEDS: MULTIVITAMIN with MINERAL TABLET. PO SCH (08:01)
[2018-08-09] MEDS: TAMSULOSIN 0.4 MG CAP.ER.24H. PO SCH (08:01)
[2018-08-09] MEDS: busPIRone 10 MG TABLET. PO SCH ×3 (08:01→20:26)
--- NOTE | 2018-08-09 09:09 | RAD ---
CHEST AP ONLY History: Shortness of air, low O2 sats Comparison: None. Findings: Single view of the chest is submitted. There may be emphysema. There is no significant pleural fluid, lobar consolidation, pneumothorax. Heart size is within normal limits. Impression: 1. There may be emphysema. There is no significant infiltrate or pleural fluid. Electronically signed by: Dilshad Alamo MD (08/09/2018 9:05 AM) [id number]
[2018-08-09 16:53] VITALS: BP 124/86
[2018-08-09] MEDS: NICOTINE 21MG PATCH. TD PRN (17:57)
[2018-08-09] MEDS: cloZAPine 100 MG TABLET PO SCH (20:26)
[2018-08-09] MEDS: risperiDONE 2 MG TABLET. PO SCH (20:26)
[2018-08-09] MEDS: DIVALPROEX ER 500 MG TAB.ER.24H PO SCH (20:27)
[2018-08-09 21:00] VITALS: BP 128/74
--- NOTE | 2018-08-09 22:48 | PDOC ---
Exam Note: Nguyễn Note: Please also refer to the separate dictated note~for this date of service dictated separately.~Patient seen individually. Discussed the patient with Nursing staff reviewed the chart.~Reviewed interim history and current functioning. Reviewed vital signs,~Labs/ Radiology~and current medications noted below. Continue current treatment with the changes noted in the dictated addendum note Assessment: Vital Signs: Vital Signs Date Time Temp Pulse Resp B/P (MAP) Pulse Ox O2 Delivery O2 Flow Rate FiO2 08/09/18 21:00 95 18 128/74 (92) 96 08/09/18 16:53 98.1 08/07/18 15:47 Room Air I&O Intake and Output 08/09/18 07:01 Intake Total 1320 ml Balance 1320 ml Intake Oral 1320 ml # Bowel Movements 1 Labs: Laboratory Tests Test 08/09/18 06:25 White Blood Count 7.4 x10^3/uL (4.0-11.0) Red Blood Count 5.19 x10^6/uL (4.30-5.70) Hemoglobin 15.5 g/dL (13.0-17.5) Hematocrit 46.0 % (39.0-53.0) Mean Corpuscular Volume 89 fL (79-100) Mean Corpuscular Hemoglobin 30 pg (25-35) Mean Corpuscular Hemoglobin Concent 34 g/dL (31-37) Red Cell Distribution Width 13.1 % (11.5-14.5) Platelet Count 336 x10^3/uL (140-400) Neutrophils (%) (Auto) 62 % (31-73) Lymphocytes (%) (Auto) 27 % (24-48) Monocytes (%) (Auto) 8 % (0-9) Eosinophils (%) (Auto) 3 % (0-3) Basophils (%) (Auto) 1 % (0-3) Neutrophils # (Auto) 4.6 x10^3uL (1.8-7.7) Lymphocytes # (Auto) 2.0 x10^3/uL (1.0-4.8) Monocytes # (Auto) 0.6 x10^3/uL (0.0-1.1) Eosinophils # (Auto) 0.2 x10^3/uL (0.0-0.7) Basophils # (Auto) 0.0 x10^3/uL (0.0-0.2) Sodium Level 137 mmol/L (136-145) Potassium Level 4.1 mmol/L (3.5-5.1) Chloride Level 99 mmol/L (98-107) Carbon Dioxide Level 31 mmol/L (21-32) Anion Gap 7 (6-14) Blood Urea Nitrogen 7 mg/dL (8-26) L Creatinine 0.7 mg/dL (0.7-1.3) Estimated GFR (Cockcroft-Gault) 116.2 BUN/Creatinine Ratio 10 (6-20) Glucose Level 147 mg/dL (70-99) H Lactic Acid Level 2.1 mmol/L (0.4-2.0) H Calcium Level 8.6 mg/dL (8.5-10.1) Total Bilirubin 0.3 mg/dL (0.2-1.0) Aspartate Amino Transferase (AST) 15 U/L (15-37) Alanine Aminotransferase (ALT) 20 U/L (16-63) Alkaline Phosphatase 76 U/L (46-116) Total Protein 7.4 g/dL (6.4-8.2) Albumin 3.3 g/dL (3.4-5.0) L Albumin/Globulin Ratio 0.8 (1.0-1.7) L Current Medications: Meds: Current Medications Acetaminophen (Tylenol) 650 mg PRN Q6HRS PRN PO PAIN / TEMP Last administered on 07/09/18at 22:06; Start 06/21/18 at 20:15 Clonazepam (KlonoPIN) 1 mg BID PO Last administered on 08/09/18at 20:26; Start 06/21/18 at 21:00 Gabapentin (Neurontin) 900 mg QID PO Last administered on 07/08/18at 16:58; Start 06/21/18 at 21:00; Stop 07/08/18 at 17:47; Status DC Al Hydroxide/Mg Hydroxide (Mylanta Plus Xs) 15 ml PRN AFTMEALHC PRN PO GI SYMPTOMS; Start 06/21/18 at 20:15 Magnesium Hydroxide (Milk Of Magnesia) 400 mg PRN DAILY PRN PO CONSTIPATION Last administered on 07/31/18at 22:24; Start 06/21/18 at 20:15 Multi-Ingredient Ointment (Analgesic [place]) 1 gerri PRN QID PRN TP MUSCLE PAIN; Start 06/21/18 at 20:15 Oxybutynin Chloride (Ditropan) 2.5 mg BID PO Last administered on 08/09/18 20 :26; Start 06/21/18 at 21:00 Potassium Chloride (Klor-Con) 20 meq DAILY PO Last administered on 08/09/18 08:00; Start 06/22/18 at 09:00 Tamsulosin HCl (Flomax) 0.8 mg DAILY PO Last administered on 08/09/18 08:01; Start 06/22/18 at 09:00 Amlodipine Besylate (Norvasc) 10 mg DAILY PO Last administered on 08/09/18 08 :01; Start 06/22/18 at 09:00 Baclofen (Lioresal) 10 mg QID PO Last administered on 07/07/18 19:36; Start 06/21/18 at 21:00; Stop 07/08/18 at 11:48; Status DC Bisacodyl (Dulcolax Supp) 10 mg PRN DAILY PRN [place] CONSTIPATION; Start 06/21/18 at 20:45 Buspirone HCl (Buspar) 10 mg TID PO Last administered on 08/09/18 20:26; Start 06/21/18 at 21:00 Divalproex Sodium (Depakote Er) 1,500 mg HS PO Last administered on 08/09/18 20:27; Start 06/21/18 at 21:00 Non-Formulary Medication (Gabapentin ) 800 mg QID PO ; Start 06/21/18 at 21:00 ; Status UNV Levothyroxine Sodium (Synthroid) 50 mcg DAILY06 PO Last administered on 05:04; Start 06/22/18 at 06:00 Multivitamins/ Calcium (Thera-M Plus) 1 tab DAILY PO Last administered on 08/09 08:01; Start 06/22/18 at 09:00 Olanzapine (ZyPREXA ZYDIS) 2.5 mg PRN Q2HR PRN PO PSYCHOSIS Last administered on 07/27/18 20:29; Start 06/21/18 at 20:45 Olanzapine (ZyPREXA) 5 mg BID PO Last administered on 06/23/18 08:47; Start 06/21/18 at 21:00; Stop 06/23/18 at 17:06; Status DC Risperidone (RisperDAL) 1.5 mg HS PO Last administered on 06/23/18at 19:45; Start 06/21/18 at 21:00; Stop 06/24/18 at 11:06; Status DC Trazodone HCl (Desyrel) 50 mg PRN QHS PRN PO INSOMNIA Last administered on 07/11at 20:19; Start 06/21/18 at 21:00 Nicotine (Nicoderm Cq 7mg) 1 patch PRN DAILY PRN TD SMOKING CESSATION; Start 06/21/18 at 23:30; Stop 07/09/18 at 05:39; Status DC Vitamin D (Vitamin D3) 50,000 unit WEEKLY PO Last administered on 08/04/18at 08 :58; Start 06/23/18 at 16:30 Olanzapine (ZyPREXA) 5 mg DAILY PO Last administered on 06/25/18at 08:04; Start 06/24/18 at 09:00; Stop 06/26/18 at 00:00; Status DC Risperidone (RisperDAL) 1.75 mg HS PO Last administered on 07/06/18at 20:08; Start 06/24/18 at 21:00; Stop 07/07/18 at 12:40; Status DC Risperidone (RisperDAL) 2 mg HS PO Last administered on 08/09/18at 20:26; Start 07/07/18 at 21:00 Gabapentin (Neurontin) 600 mg QID PO Last administered on 08/09/18at 20:27; Start 07/08/18 at 21:00 Nicotine (Nicoderm Cq 21mg) 1 patch DAILY TD Last administered on 07/30/18at 08 :54; Start 07/09/18 at 09:00; Stop 07/31/18 at 04:33; Status DC Clozapine (Clozaril) 25 mg DAILY PO Last administered on 07/27/18at 09:38; Start 07/13/18 at 09:00; Stop 07/27/18 at 16:52; Status DC Vitamin D (Vitamin D3) 50,000 unit WEEKLY PO ; Start 07/24/18 at 09:00; Status Cancel Clozapine (Clozaril) 50 mg DAILY PO Last administered on 08/03/18at 07:51; Start 07/28/18 at 09:00; Stop 08/03/18 at 21:09; Status DC Nicotine (Nicoderm Cq 21mg) 1 patch PRN DAILY PRN TD SMOKING CESSATION Last administered on 08/09/18at 17:57; Start 07/31/18 at 04:45 Clozapine (Clozaril) 75 mg HS PO Last administered on 08/08/18at 19:36; Start 08/04/18 at 21:00; Stop 08/09/18 at 17:33; Status DC Clozapine (Clozaril) 25 mg 1X ONCE PO Last administered on 08/03/18at 21:25; Start 08/03/18 at 21:30; Stop 08/03/18 at 21:31; Status DC Clozapine (Clozaril) 100 mg QHS PO Last administered on 08/09/18at 20:26; Start 08/09/18 at 21:00 Active Scripts Active Reported Zyprexa (Olanzapine) 5 Mg Tablet 5 Mg PO BID NICODERM CQ 7mg (Nicotine) 1 Each Patch.td24 1 Patch TD PRN DAILY PRN Trazodone Hcl 50 Mg Tablet 50 Mg PO PRN QHS PRN Risperdal (Risperidone) 1 Mg Tablet 1.5 Mg PO HS Analgesic [place] (Methyl Salicylate/Menthol) 28 Gm Oint...g. 1 Gerri TP PRN QID PRN Milk Of Magnesia (Magnesium Hydroxide) 400 Mg/5 Ml Oral.susp 400 Mg PO PRN DAILY PRN Mag-Al Plus Xs Suspension (Mag Hydrox/Al Hydrox/Simeth) 30 Ml Oral.susp 15 Ml PO PRN AFTMEALHC PRN Buspirone Hcl 10 Mg Tablet 10 Mg PO TID Baclofen 10 Mg Tablet 10 Mg PO QID Gabapentin 100 Mg Capsule 100 Mg PO QID Gabapentin 800 Mg Tablet 800 Mg PO QID Levothyroxine Sodium 50 Mcg Tablet 50 Mcg PO DAILYAC Klonopin (Clonazepam) 0.5 Mg Tablet 1 Mg PO BID Norvasc (Amlodipine Besylate) 10 Mg Tablet 10 Mg PO DAILY Oxybutynin Chloride 5 Mg Tablet 2.5 Mg PO BID Depakote Er (Divalproex Sodium) 500 Mg Tab.er.24h 1,500 Mg PO HS Klor-Con M20 (Potassium Chloride) 20 Meq Tab.er.prt 20 Meq PO DAILY Cymbalta (Duloxetine Hcl) 60 Mg Capsule.dr 60 Mg PO DAILY Multivitamin with Iron Tablet (Multivitamin/Iron/Folic Acid) 1 Each Tablet 1 Tab PO DAILY Flomax (Tamsulosin Hcl) 0.4 Mg Cap.er.24h 0.8 Mg PO DAILY Olanzapine 5 Mg Tablet 2.5 Mg PO PRN Q2HR PRN MDD 10mg/ 24 hrs Remeron (Mirtazapine) 15 Mg Tablet 7.5 Mg PO HS Bisacodyl 10 Mg Supp.rect 10 Mg RC PRN DAILY PRN Tylenol (Acetaminophen) 325 Mg Tablet 650 Mg PO PRN Q6HRS PRN I have reviewed the current psychotropics carefully including drug interactions. Risk benefit ratio favors no change other than as noted in my dictated progress note. Diagnosis: Problems: (1) Depression (2) Schizoaffective disorder (3) Anxiety disorder (4) Impulse control disorder (5) Schizophrenia, paranoid, chronic with acute exacerbation CATHY EMERY MD Aug 09, 2018 22:48
--- NOTE | 2018-08-10 02:33 | PN ---
DATE: 08/07/2018 This is a late entry of 08/07/2018, covers elements not covered in my initial note. SUBJECTIVE: I met with the patient in his room in the evening. He slept 7 hours previous night. Previous evening, he was irritable, swearing at staff and on 08/07/2018, he complains of having some dizzy spells. We will check his orthostatic blood pressures for this. REVIEW OF SYSTEMS: Otherwise, positive for impaired ambulation with walker. No CV, , pulmonary, eye, ENT system symptoms on review. MENTAL STATUS EXAM: Oriented to himself and situation. Speech is coherent, abstraction fair, computation impaired, language function intact. Mood and affect, less psychotic. LABORATORY DATA: Reviewed. IMPRESSION: Schizoaffective disorder, bipolar type, mixed. Rest unchanged. PLAN: No change from initial note. We will increase Clozaril after the next set of labs. MAN Ty EMERY MD DR: SARINA/nilda JOB#: [id number] / [id number]
--- NOTE | 2018-08-10 02:46 | PN ---
DATE: 08/08/2018 PSYCHIATRIC PROGRESS NOTE This is a late entry of 08/08/2018 covers elements not covered in my initial note. SUBJECTIVE: I met with the patient in the evening. The patient slept 5-1/2 hours previous evening. Orthostatic blood pressures were unremarkable. He has had no further complaints of dizziness. He has not been angry, aggressive, paranoid, less so than before. REVIEW OF SYSTEMS: Ambulation impaired with walker. No CV, , pulmonary, eye system symptoms on review. MENTAL STATUS EXAM: Oriented to himself and situation. Speech is coherent, abstraction fair, computation impaired, language function intact. Mood and affect was improved. No suicidal ideation. LABORATORY DATA: Reviewed. IMPRESSION: Unchanged from initial note. PLAN: No change from initial note. MAN Ty EMERY MD DR: SARINA/nilda JOB#: [id number] / [id number]
--- NOTE | 2018-08-10 03:04 | PN ---
DATE: 08/06/2018 PSYCHIATRIC PROGRESS NOTE This late entry 08/06/2018 covers elements not covered in my initial note. SUBJECTIVE: I met with the patient in the evening. The patient was also staffed at the entire treatment team earlier in the day. The patient slept 6-1/2 hours previous night, remains somewhat anxious at times, suspicious, but redirectable. Ambulation impaired with walker. REVIEW OF SYSTEMS: No CV, , pulmonary, eye, ENT system symptoms on review. MENTAL STATUS EXAM: Oriented to himself and situation. Speech is coherent, met with him at length in his room. Abstraction fair, computation impaired, language function intact, attention span short. Mood and affect somewhat withdrawn, less paranoid. LABORATORY DATA: Reviewed. IMPRESSION: Schizoaffective disorder, bipolar type, mixed with psychotic features, in partial remission. PLAN: Unchanged from initial note, may need to continue to increase Clozaril as tolerated with absolute neutrophil counts, being checked every week. MAN Ty EMERY MD DR: SARINA/nilda JOB#: [id number] / [id number]
[2018-08-10] MEDS: LEVOTHYROXINE 50 MCG TABLET PO SCH (04:38)
[2018-08-10 06:07] VITALS: BP 117/88
[2018-08-10] MEDS: amLODIPine BESYLATE 10 MG TABLET PO SCH (07:39)
[2018-08-10] MEDS: POTASSIUM CHLORIDE 20 MEQ TABLET.ER. PO SCH (07:39)
[2018-08-10] MEDS: TAMSULOSIN 0.4 MG CAP.ER.24H. PO SCH (07:40)
[2018-08-10] MEDS: OXYBUTYNIN CHLORIDE 5 MG TABLET PO SCH ×2 (07:40→20:16)
[2018-08-10] MEDS: busPIRone 10 MG TABLET. PO SCH ×3 (07:41→20:16)
[2018-08-10] MEDS: MULTIVITAMIN with MINERAL TABLET. PO SCH (07:41)
[2018-08-10] MEDS: GABAPENTIN 300 MG CAPSULE. PO SCH ×4 (07:41→20:18)
[2018-08-10] MEDS: clonazePAM 0.5 MG TABLET PO SCH ×2 (07:42→20:20)
[2018-08-10] MEDS: NICOTINE 21MG PATCH. TD PRN (12:00)
[2018-08-10 16:31] VITALS: BP 144/81
[2018-08-10] MEDS: cloZAPine 100 MG TABLET PO SCH (20:15)
[2018-08-10] MEDS: risperiDONE 2 MG TABLET. PO SCH (20:15)
[2018-08-10] MEDS: DIVALPROEX ER 500 MG TAB.ER.24H PO SCH (20:16)
[2018-08-10] MEDS: traZODone 50 MG TABLET. PO PRN (20:19)
--- NOTE | 2018-08-10 22:58 | PDOC ---
Exam Note: Nguyễn Note: Please also refer to the separate dictated note~for this date of service dictated separately.~Patient seen individually. Discussed the patient with Nursing staff reviewed the chart.~Reviewed interim history and current functioning. Reviewed vital signs,~Labs/ Radiology~and current medications noted below. Continue current treatment with the changes noted in the dictated addendum note Assessment: Vital Signs: Vital Signs Date Time Temp Pulse Resp B/P (MAP) Pulse Ox O2 Delivery O2 Flow Rate FiO2 08/10/18 16:31 97.6 102 16 144/81 (102) 97 08/07/18 15:47 Room Air I&O Intake and Output 08/10/18 07:01 Intake Total 1200 ml Balance 1200 ml Intake Oral 1200 ml Current Medications: Meds: Current Medications Acetaminophen (Tylenol) 650 mg PRN Q6HRS PRN PO PAIN / TEMP Last administered on 07/09/18at 22:06; Start 06/21/18 at 20:15 Clonazepam (KlonoPIN) 1 mg BID PO Last administered on 08/10/18 20:20; Start 06/21/18 at 21:00 Gabapentin (Neurontin) 900 mg QID PO Last administered on 07/08/18at 16:58; Start 06/21/18 at 21:00; Stop 07/08/18 at 17:47; Status DC Al Hydroxide/Mg Hydroxide (Mylanta Plus Xs) 15 ml PRN AFTMEALHC PRN PO GI SYMPTOMS; Start 06/21/18 at 20:15 Magnesium Hydroxide (Milk Of Magnesia) 400 mg PRN DAILY PRN PO CONSTIPATION Last administered on 07/31/18at 22:24; Start 06/21/18 at 20:15 Multi-Ingredient Ointment (Analgesic [place]) 1 gerri PRN QID PRN TP MUSCLE PAIN; Start 06/21/18 at 20:15 Oxybutynin Chloride (Ditropan) 2.5 mg BID PO Last administered on 08/10/18 20: 16; Start 06/21/18 at 21:00 Potassium Chloride (Klor-Con) 20 meq DAILY PO Last administered on 08/10/18 07: 39; Start 06/22/18 at 09:00 Tamsulosin HCl (Flomax) 0.8 mg DAILY PO Last administered on 08/10/18 07:40; Start 06/22/18 at 09:00 Amlodipine Besylate (Norvasc) 10 mg DAILY PO Last administered on 08/10/18 07: 39; Start 06/22/18 at 09:00 Baclofen (Lioresal) 10 mg QID PO Last administered on 07/07/18at 19:36; Start 06/21/18 at 21:00; Stop 07/08/18 at 11:48; Status DC Bisacodyl (Dulcolax Supp) 10 mg PRN DAILY PRN [place] CONSTIPATION; Start 06/21/18 at 20:45 Buspirone HCl (Buspar) 10 mg TID PO Last administered on 08/10/18 20:16; Start 06/21/18 at 21:00 Divalproex Sodium (Depakote Er) 1,500 mg HS PO Last administered on 08/10/18 20 :16; Start 06/21/18 at 21:00 Non-Formulary Medication (Gabapentin ) 800 mg QID PO ; Start 06/21/18 at 21:00 ; Status UNV Levothyroxine Sodium (Synthroid) 50 mcg DAILY06 PO Last administered on 04:38; Start 06/22/18 at 06:00 Multivitamins/ Calcium (Thera-M Plus) 1 tab DAILY PO Last administered on 07:41; Start 06/22/18 at 09:00 Olanzapine (ZyPREXA ZYDIS) 2.5 mg PRN Q2HR PRN PO PSYCHOSIS Last administered on 08/10/18 20:19; Start 06/21/18 at 20:45 Olanzapine (ZyPREXA) 5 mg BID PO Last administered on 06/23/18at 08:47; Start 06/21/18 at 21:00; Stop 06/23/18 at 17:06; Status DC Risperidone (RisperDAL) 1.5 mg HS PO Last administered on 06/23/18at 19:45; Start 06/21/18 at 21:00; Stop 06/24/18 at 11:06; Status DC Trazodone HCl (Desyrel) 50 mg PRN QHS PRN PO INSOMNIA Last administered on 20:19; Start 06/21/18 at 21:00; Stop 1/1/19 at 21:07; Status DC Nicotine (Nicoderm Cq 7mg) 1 patch PRN DAILY PRN TD SMOKING CESSATION; Start 06/21/18 at 23:30; Stop 07/09/18 at 05:39; Status DC Vitamin D (Vitamin D3) 50,000 unit WEEKLY PO Last administered on 08/04/18at 08 :58; Start 06/23/18 at 16:30 Olanzapine (ZyPREXA) 5 mg DAILY PO Last administered on 06/25/18at 08:04; Start 06/24/18 at 09:00; Stop 06/26/18 at 00:00; Status DC Risperidone (RisperDAL) 1.75 mg HS PO Last administered on 07/06/18at 20:08; Start 06/24/18 at 21:00; Stop 07/07/18 at 12:40; Status DC Risperidone (RisperDAL) 2 mg HS PO Last administered on 08/10/18at 20:15; Start 07/07/18 at 21:00; Stop 08/10/18 at 21:07; Status DC Gabapentin (Neurontin) 600 mg QID PO Last administered on 08/10/18at 20:18; Start 07/08/18 at 21:00 Nicotine (Nicoderm Cq 21mg) 1 patch DAILY TD Last administered on 07/30/18at 08 :54; Start 07/09/18 at 09:00; Stop 07/31/18 at 04:33; Status DC Clozapine (Clozaril) 25 mg DAILY PO Last administered on 07/27/18at 09:38; Start 07/13/18 at 09:00; Stop 07/27/18 at 16:52; Status DC Vitamin D (Vitamin D3) 50,000 unit WEEKLY PO ; Start 07/24/18 at 09:00; Status Cancel Clozapine (Clozaril) 50 mg DAILY PO Last administered on 08/03/18at 07:51; Start 07/28/18 at 09:00; Stop 08/03/18 at 21:09; Status DC Nicotine (Nicoderm Cq 21mg) 1 patch PRN DAILY PRN TD SMOKING CESSATION Last administered on 08/10/18at 12:00; Start 07/31/18 at 04:45 Clozapine (Clozaril) 75 mg HS PO Last administered on 08/08/18at 19:36; Start 08/04/18 at 21:00; Stop 08/09/18 at 17:33; Status DC Clozapine (Clozaril) 25 mg 1X ONCE PO Last administered on 08/03/18at 21:25; Start 08/03/18 at 21:30; Stop 08/03/18 at 21:31; Status DC Clozapine (Clozaril) 100 mg QHS PO Last administered on 08/10/18at 20:15; Start 08/09/18 at 21:00 Risperidone (RisperDAL) 1.5 mg HS PO ; Start 08/11/18 at 21:00 Trazodone HCl (Desyrel) 50 mg QHS PO ; Start 08/11/18 at 21:00 Active Scripts Active Reported Zyprexa (Olanzapine) 5 Mg Tablet 5 Mg PO BID NICODERM CQ 7mg (Nicotine) 1 Each Patch.td24 1 Patch TD PRN DAILY PRN Trazodone Hcl 50 Mg Tablet 50 Mg PO PRN QHS PRN Risperdal (Risperidone) 1 Mg Tablet 1.5 Mg PO HS Analgesic [place] (Methyl Salicylate/Menthol) 28 Gm Oint...g. 1 Greri TP PRN QID PRN Milk Of Magnesia (Magnesium Hydroxide) 400 Mg/5 Ml Oral.susp 400 Mg PO PRN DAILY PRN Mag-Al Plus Xs Suspension (Mag Hydrox/Al Hydrox/Simeth) 30 Ml Oral.susp 15 Ml PO PRN AFTMEALHC PRN Buspirone Hcl 10 Mg Tablet 10 Mg PO TID Baclofen 10 Mg Tablet 10 Mg PO QID Gabapentin 100 Mg Capsule 100 Mg PO QID Gabapentin 800 Mg Tablet 800 Mg PO QID Levothyroxine Sodium 50 Mcg Tablet 50 Mcg PO DAILYAC Klonopin (Clonazepam) 0.5 Mg Tablet 1 Mg PO BID Norvasc (Amlodipine Besylate) 10 Mg Tablet 10 Mg PO DAILY Oxybutynin Chloride 5 Mg Tablet 2.5 Mg PO BID Depakote Er (Divalproex Sodium) 500 Mg Tab.er.24h 1,500 Mg PO HS Klor-Con M20 (Potassium Chloride) 20 Meq Tab.er.prt 20 Meq PO DAILY Cymbalta (Duloxetine Hcl) 60 Mg Capsule.dr 60 Mg PO DAILY Multivitamin with Iron Tablet (Multivitamin/Iron/Folic Acid) 1 Each Tablet 1 Tab PO DAILY Flomax (Tamsulosin Hcl) 0.4 Mg Cap.er.24h 0.8 Mg PO DAILY Olanzapine 5 Mg Tablet 2.5 Mg PO PRN Q2HR PRN MDD 10mg/ 24 hrs Remeron (Mirtazapine) 15 Mg Tablet 7.5 Mg PO HS Bisacodyl 10 Mg Supp.rect 10 Mg RC PRN DAILY PRN Tylenol (Acetaminophen) 325 Mg Tablet 650 Mg PO PRN Q6HRS PRN I have reviewed the current psychotropics carefully including drug interactions. Risk benefit ratio favors no change other than as noted in my dictated progress note. Diagnosis: Problems: (1) Depression (2) Schizoaffective disorder (3) Anxiety disorder (4) Impulse control disorder (5) Schizophrenia, paranoid, chronic with acute exacerbation CATHY EMERY MD Aug 10, 2018 22:58
--- NOTE | 2018-08-11 00:22 | PN ---
DATE: 08/09/2018 PSYCHIATRIC PROGRESS NOTE This is a late entry 08/09/2018 covers elements not covered in my initial note. SUBJECTIVE: I met with the patient in the evening in his room. The patient slept 7-1/2 hours previous night. Overall, remains somewhat withdrawn. No change in his behaviors. Absolute neutrophil count is 4500 and we will increase the Clozaril from 75 mg at bedtime to p.o. 100 mg at bedtime. REVIEW OF SYSTEMS: Ambulation impaired with walker. No CV, , pulmonary, eye, ENT system symptoms on review. MENTAL STATUS EXAM: Oriented to himself and situation. Speech is coherent, very animated, holding my hand, abstraction fair, computation impaired, language function intact, attention span short. Mood and affect, lability is improved. LABORATORY DATA: Reviewed. IMPRESSION: Schizoaffective disorder, bipolar type mixed with psychotic features, in partial remission; anxiety disorder, unspecified. PLAN: Increase Clozaril as above. Rest unchanged from initial note. MAN Ty EMERY MD DR: SARINA/nilda JOB#: [id number] / [id number]
[2018-08-11] MEDS: LEVOTHYROXINE 50 MCG TABLET PO SCH (04:44)
[2018-08-11 05:39] VITALS: BP 128/87
[2018-08-11] MEDS: TAMSULOSIN 0.4 MG CAP.ER.24H. PO SCH (09:13)
[2018-08-11] MEDS: OXYBUTYNIN CHLORIDE 5 MG TABLET PO SCH ×2 (09:13→20:18)
[2018-08-11] MEDS: busPIRone 10 MG TABLET. PO SCH ×3 (09:13→20:18)
[2018-08-11] MEDS: clonazePAM 0.5 MG TABLET PO SCH ×2 (09:14→20:18)
[2018-08-11] MEDS: POTASSIUM CHLORIDE 20 MEQ TABLET.ER. PO SCH (09:14)
[2018-08-11] MEDS: GABAPENTIN 300 MG CAPSULE. PO SCH ×4 (09:14→20:17)
[2018-08-11] MEDS: amLODIPine BESYLATE 10 MG TABLET PO SCH (09:15)
[2018-08-11] MEDS: NICOTINE 21MG PATCH. TD PRN (09:19)
[2018-08-11] MEDS: MULTIVITAMIN with MINERAL TABLET. PO SCH (09:19)
[2018-08-11] MEDS: CHOLECALCIFEROL (VITAMIN D3) 50,000 UNIT CAPSULE PO SCH (09:19)
[2018-08-11 16:23] VITALS: BP 122/87
[2018-08-11] MEDS: cloZAPine 100 MG TABLET PO SCH (20:18)
[2018-08-11] MEDS: DIVALPROEX ER 500 MG TAB.ER.24H PO SCH (20:18)
[2018-08-11] MEDS: risperiDONE 0.5 MG TABLET. PO SCH (20:19)
[2018-08-11] MEDS ORDERED: traZODone 50 MG TABLET. PO SCH (21:00)
--- NOTE | 2018-08-11 22:50 | PDOC ---
Exam Note: Nguyễn Note: Please also refer to the separate dictated note~for this date of service dictated separately.~Patient seen individually. Discussed the patient with Nursing staff reviewed the chart.~Reviewed interim history and current functioning. Reviewed vital signs,~Labs/ Radiology~and current medications noted below. Continue current treatment with the changes noted in the dictated addendum note Assessment: Vital Signs: Vital Signs Date Time Temp Pulse Resp B/P (MAP) Pulse Ox O2 Delivery O2 Flow Rate FiO2 08/11/18 16:23 97.8 98 18 122/87 (99) 96 Room Air I&O Intake and Output 08/11/18 07:01 Intake Total 1200 ml Balance 1200 ml Intake Oral 1200 ml Current Medications: Meds: Current Medications Acetaminophen (Tylenol) 650 mg PRN Q6HRS PRN PO PAIN / TEMP Last administered on 07/09/18at 22:06; Start 06/21/18 at 20:15 Clonazepam (KlonoPIN) 1 mg BID PO Last administered on 08/11/18 20:18; Start 06/21/18 at 21:00 Gabapentin (Neurontin) 900 mg QID PO Last administered on 07/08/18at 16:58; Start 06/21/18 at 21:00; Stop 07/08/18 at 17:47; Status DC Al Hydroxide/Mg Hydroxide (Mylanta Plus Xs) 15 ml PRN AFTMEALHC PRN PO GI SYMPTOMS; Start 06/21/18 at 20:15 Magnesium Hydroxide (Milk Of Magnesia) 400 mg PRN DAILY PRN PO CONSTIPATION Last administered on 07/31/18at 22:24; Start 06/21/18 at 20:15 Multi-Ingredient Ointment (Analgesic [place]) 1 gerri PRN QID PRN TP MUSCLE PAIN; Start 06/21/18 at 20:15 Oxybutynin Chloride (Ditropan) 2.5 mg BID PO Last administered on 08/11/18 20: 18; Start 06/21/18 at 21:00 Potassium Chloride (Klor-Con) 20 meq DAILY PO Last administered on 08/11/18 09: 14; Start 06/22/18 at 09:00 Tamsulosin HCl (Flomax) 0.8 mg DAILY PO Last administered on 08/11/18 09:13; Start 06/22/18 at 09:00 Amlodipine Besylate (Norvasc) 10 mg DAILY PO Last administered on 08/11/18 09: 15; Start 06/22/18 at 09:00 Baclofen (Lioresal) 10 mg QID PO Last administered on 07/07/18at 19:36; Start 06/21/18 at 21:00; Stop 07/08/18 at 11:48; Status DC Bisacodyl (Dulcolax Supp) 10 mg PRN DAILY PRN [place] CONSTIPATION; Start 06/21/18 at 20:45 Buspirone HCl (Buspar) 10 mg TID PO Last administered on 08/11/18 20:18; Start 06/21/18 at 21:00 Divalproex Sodium (Depakote Er) 1,500 mg HS PO Last administered on 08/11/18 20 :18; Start 06/21/18 at 21:00 Non-Formulary Medication (Gabapentin ) 800 mg QID PO ; Start 06/21/18 at 21:00 ; Status UNV Levothyroxine Sodium (Synthroid) 50 mcg DAILY06 PO Last administered on 04:44; Start 06/22/18 at 06:00 Multivitamins/ Calcium (Thera-M Plus) 1 tab DAILY PO Last administered on 09:19; Start 06/22/18 at 09:00 Olanzapine (ZyPREXA ZYDIS) 2.5 mg PRN Q2HR PRN PO PSYCHOSIS Last administered on 08/10/18 20:19; Start 06/21/18 at 20:45 Olanzapine (ZyPREXA) 5 mg BID PO Last administered on 06/23/18at 08:47; Start 06/21/18 at 21:00; Stop 06/23/18 at 17:06; Status DC Risperidone (RisperDAL) 1.5 mg HS PO Last administered on 06/23/18 19:45; Start 06/21/18 at 21:00; Stop 06/24/18 at 11:06; Status DC Trazodone HCl (Desyrel) 50 mg PRN QHS PRN PO INSOMNIA Last administered on 20:19; Start 06/21/18 at 21:00; Stop 08/10/18 at 21:07; Status DC Nicotine (Nicoderm Cq 7mg) 1 patch PRN DAILY PRN TD SMOKING CESSATION; Start 06/21/18 at 23:30; Stop 07/09/18 at 05:39; Status DC Vitamin D (Vitamin D3) 50,000 unit WEEKLY PO Last administered on 08/11/18 09: 19; Start 06/23/18 at 16:30 Olanzapine (ZyPREXA) 5 mg DAILY PO Last administered on 06/25/18at 08:04; Start 06/24/18 at 09:00; Stop 06/26/18 at 00:00; Status DC Risperidone (RisperDAL) 1.75 mg HS PO Last administered on 07/06/18at 20:08; Start 06/24/18 at 21:00; Stop 07/07/18 at 12:40; Status DC Risperidone (RisperDAL) 2 mg HS PO Last administered on 08/10/18at 20:15; Start 07/07/18 at 21:00; Stop 08/10/18 at 21:07; Status DC Gabapentin (Neurontin) 600 mg QID PO Last administered on 08/11/18at 20:17; Start 07/08/18 at 21:00 Nicotine (Nicoderm Cq 21mg) 1 patch DAILY TD Last administered on 07/30/18at 08 :54; Start 07/09/18 at 09:00; Stop 07/31/18 at 04:33; Status DC Clozapine (Clozaril) 25 mg DAILY PO Last administered on 07/27/18at 09:38; Start 07/13/18 at 09:00; Stop 07/27/18 at 16:52; Status DC Vitamin D (Vitamin D3) 50,000 unit WEEKLY PO ; Start 07/24/18 at 09:00; Status Cancel Clozapine (Clozaril) 50 mg DAILY PO Last administered on 08/03/18at 07:51; Start 07/28/18 at 09:00; Stop 08/03/18 at 21:09; Status DC Nicotine (Nicoderm Cq 21mg) 1 patch PRN DAILY PRN TD SMOKING CESSATION Last administered on 08/11/18 09:19; Start 07/31/18 at 04:45 Clozapine (Clozaril) 75 mg HS PO Last administered on 08/08/18at 19:36; Start 08/04/18 at 21:00; Stop 08/09/18 at 17:33; Status DC Clozapine (Clozaril) 25 mg 1X ONCE PO Last administered on 08/03/18at 21:25; Start 08/03/18 at 21:30; Stop 08/03/18 at 21:31; Status DC Clozapine (Clozaril) 100 mg QHS PO Last administered on 08/11/18at 20:18; Start 08/09/18 at 21:00 Risperidone (RisperDAL) 1.5 mg HS PO Last administered on 08/11/18at 20:19; Start 08/11/18 at 21:00 Trazodone HCl (Desyrel) 50 mg QHS PO ; Start 08/11/18 at 21:00; Stop 08/11/18 at 21:00; Status DC Active Scripts Active Reported Zyprexa (Olanzapine) 5 Mg Tablet 5 Mg PO BID NICODERM CQ 7mg (Nicotine) 1 Each Patch.td24 1 Patch TD PRN DAILY PRN Trazodone Hcl 50 Mg Tablet 50 Mg PO PRN QHS PRN Risperdal (Risperidone) 1 Mg Tablet 1.5 Mg PO HS Analgesic [place] (Methyl Salicylate/Menthol) 28 Gm Oint...g. 1 Gerri TP PRN QID PRN Milk Of Magnesia (Magnesium Hydroxide) 400 Mg/5 Ml Oral.susp 400 Mg PO PRN DAILY PRN Mag-Al Plus Xs Suspension (Mag Hydrox/Al Hydrox/Simeth) 30 Ml Oral.susp 15 Ml PO PRN AFTMEALHC PRN Buspirone Hcl 10 Mg Tablet 10 Mg PO TID Baclofen 10 Mg Tablet 10 Mg PO QID Gabapentin 100 Mg Capsule 100 Mg PO QID Gabapentin 800 Mg Tablet 800 Mg PO QID Levothyroxine Sodium 50 Mcg Tablet 50 Mcg PO DAILYAC Klonopin (Clonazepam) 0.5 Mg Tablet 1 Mg PO BID Norvasc (Amlodipine Besylate) 10 Mg Tablet 10 Mg PO DAILY Oxybutynin Chloride 5 Mg Tablet 2.5 Mg PO BID Depakote Er (Divalproex Sodium) 500 Mg Tab.er.24h 1,500 Mg PO HS Klor-Con M20 (Potassium Chloride) 20 Meq Tab.er.prt 20 Meq PO DAILY Cymbalta (Duloxetine Hcl) 60 Mg Capsule.dr 60 Mg PO DAILY Multivitamin with Iron Tablet (Multivitamin/Iron/Folic Acid) 1 Each Tablet 1 Tab PO DAILY Flomax (Tamsulosin Hcl) 0.4 Mg Cap.er.24h 0.8 Mg PO DAILY Olanzapine 5 Mg Tablet 2.5 Mg PO PRN Q2HR PRN MDD 10mg/ 24 hrs Remeron (Mirtazapine) 15 Mg Tablet 7.5 Mg PO HS Bisacodyl 10 Mg Supp.rect 10 Mg RC PRN DAILY PRN Tylenol (Acetaminophen) 325 Mg Tablet 650 Mg PO PRN Q6HRS PRN I have reviewed the current psychotropics carefully including drug interactions. Risk benefit ratio favors no change other than as noted in my dictated progress note. Diagnosis: Problems: (1) Depression (2) Schizoaffective disorder (3) Anxiety disorder (4) Impulse control disorder (5) Schizophrenia, paranoid, chronic with acute exacerbation CATHY EMERY MD Aug 11, 2018 22:50
--- NOTE | 2018-08-12 00:15 | PN ---
DATE: 08/10/2018 PSYCHIATRIC PROGRESS NOTE This late entry 08/10/2018 covers elements not covered in my initial note. SUBJECTIVE: I met with the patient at some length in his room. The patient slept 3-1/4 hours previous night. Staff reports he has been having some vague hallucinations in the evening. REVIEW OF SYSTEMS: Ambulation impaired with walker. No CV, , pulmonary, eye, ENT system symptoms on review. MENTAL STATUS EXAM: Reasonably oriented. Speech is coherent. He is quite interactive, asking how my day was. Abstraction fair, computation impaired, language function intact, attention span short. Mood and affect somewhat withdrawn. LABORATORY DATA: Reviewed. IMPRESSION: Schizoaffective disorder, bipolar type, mixed with psychotic features. Rest unchanged. PLAN: Reduce the Risperdal from 2 mg at bedtime down to 1.5 mg at bedtime as we have increased the Clozaril, trazodone we will start 50 mg at bedtime, may repeat x 1 p.r.n. insomnia. Rest unchanged. MAN Ty EMERY MD DR: SARINA/nilda JOB#: [id number] / [id number]
[2018-08-12 05:51] VITALS: BP 101/60
[2018-08-12] MEDS: LEVOTHYROXINE 50 MCG TABLET PO SCH (06:09)
[2018-08-12] MEDS: OXYBUTYNIN CHLORIDE 5 MG TABLET PO SCH ×2 (08:38→21:17)
[2018-08-12] MEDS: TAMSULOSIN 0.4 MG CAP.ER.24H. PO SCH (08:38)
[2018-08-12] MEDS: MULTIVITAMIN with MINERAL TABLET. PO SCH (08:38)
[2018-08-12] MEDS: POTASSIUM CHLORIDE 20 MEQ TABLET.ER. PO SCH (08:39)
[2018-08-12] MEDS: busPIRone 10 MG TABLET. PO SCH ×3 (08:39→21:17)
[2018-08-12] MEDS: clonazePAM 0.5 MG TABLET PO SCH ×2 (08:40→21:17)
[2018-08-12] MEDS: GABAPENTIN 300 MG CAPSULE. PO SCH ×4 (08:41→21:17)
[2018-08-12] MEDS: amLODIPine BESYLATE 10 MG TABLET PO SCH (09:00)
[2018-08-12] MEDS ORDERED: ONDANSETRON ODT 4 MG TAB.RAPDIS PO PRN (10:45)
[2018-08-12] MEDS: NICOTINE 21MG PATCH. TD PRN (11:10)
[2018-08-12 16:02] VITALS: BP 113/78
[2018-08-12] MEDS: ONDANSETRON ODT 4 MG TAB.RAPDIS PO PRN (16:37)
[2018-08-12] MEDS: MAGNESIUM HYDROXIDE 2,400 MG/30 ML ORAL.SUSP. PO PRN (19:23)
[2018-08-12] MEDS: risperiDONE 0.5 MG TABLET. PO SCH (21:17)
[2018-08-12] MEDS: cloZAPine 100 MG TABLET PO SCH (21:17)
[2018-08-12] MEDS: DIVALPROEX ER 500 MG TAB.ER.24H PO SCH (21:18)
--- NOTE | 2018-08-12 23:01 | PDOC ---
Exam Note: Nguyễn Note: Please also refer to the separate dictated note~for this date of service dictated separately.~Patient seen individually. Discussed the patient with Nursing staff reviewed the chart.~Reviewed interim history and current functioning. Reviewed vital signs,~Labs/ Radiology~and current medications noted below. Continue current treatment with the changes noted in the dictated addendum note Assessment: Vital Signs: Vital Signs Date Time Temp Pulse Resp B/P (MAP) Pulse Ox O2 Delivery O2 Flow Rate FiO2 08/12/18 16:02 98.5 89 20 113/78 (90) 100 Room Air I&O Intake and Output 08/12/18 07:01 Intake Total 1560 ml Balance 1560 ml Intake Oral 1560 ml # Voids 1 Current Medications: Meds: Current Medications Acetaminophen (Tylenol) 650 mg PRN Q6HRS PRN PO PAIN / TEMP Last administered on 07/09/18 22:06; Start 06/21/18 at 20:15 Clonazepam (KlonoPIN) 1 mg BID PO Last administered on 08/12/18 21:17; Start 06/21/18 at 21:00 Gabapentin (Neurontin) 900 mg QID PO Last administered on 07/08/18 16:58; Start 06/21/18 at 21:00; Stop 07/08/18 at 17:47; Status DC Al Hydroxide/Mg Hydroxide (Mylanta Plus Xs) 15 ml PRN AFTMEALHC PRN PO GI SYMPTOMS; Start 06/21/18 at 20:15 Magnesium Hydroxide (Milk Of Magnesia) 400 mg PRN DAILY PRN PO CONSTIPATION Last administered on 08/12/18 19:23; Start 06/21/18 at 20:15 Multi-Ingredient Ointment (Analgesic [place]) 1 gerri PRN QID PRN TP MUSCLE PAIN; Start 06/21/18 at 20:15 Oxybutynin Chloride (Ditropan) 2.5 mg BID PO Last administered on 08/12/18 21: 17; Start 06/21/18 at 21:00 Potassium Chloride (Klor-Con) 20 meq DAILY PO Last administered on 08/12/18 08: 39; Start 06/22/18 at 09:00 Tamsulosin HCl (Flomax) 0.8 mg DAILY PO Last administered on 08/12/18 08:38; Start 06/22/18 at 09:00 Amlodipine Besylate (Norvasc) 10 mg DAILY PO Last administered on 08/11/18 09: 15; Start 06/22/18 at 09:00 Baclofen (Lioresal) 10 mg QID PO Last administered on 07/07/18at 19:36; Start 06/21/18 at 21:00; Stop 07/08/18 at 11:48; Status DC Bisacodyl (Dulcolax Supp) 10 mg PRN DAILY PRN [place] CONSTIPATION; Start 06/21/18 at 20:45 Buspirone HCl (Buspar) 10 mg TID PO Last administered on 08/12/18 21:17; Start 06/21/18 at 21:00 Divalproex Sodium (Depakote Er) 1,500 mg HS PO Last administered on 08/12/18 21 :18; Start 06/21/18 at 21:00 Non-Formulary Medication (Gabapentin ) 800 mg QID PO ; Start 06/21/18 at 21:00 ; Status UNV Levothyroxine Sodium (Synthroid) 50 mcg DAILY06 PO Last administered on 06:09; Start 06/22/18 at 06:00 Multivitamins/ Calcium (Thera-M Plus) 1 tab DAILY PO Last administered on 08:38; Start 06/22/18 at 09:00 Olanzapine (ZyPREXA ZYDIS) 2.5 mg PRN Q2HR PRN PO PSYCHOSIS Last administered on 08/10/18 20:19; Start 06/21/18 at 20:45 Olanzapine (ZyPREXA) 5 mg BID PO Last administered on 06/23/18at 08:47; Start 06/21/18 at 21:00; Stop 06/23/18 at 17:06; Status DC Risperidone (RisperDAL) 1.5 mg HS PO Last administered on 06/23/18at 19:45; Start 06/21/18 at 21:00; Stop 06/24/18 at 11:06; Status DC Trazodone HCl (Desyrel) 50 mg PRN QHS PRN PO INSOMNIA Last administered on 20:19; Start 06/21/18 at 21:00; Stop 08/10/18 at 21:07; Status DC Nicotine (Nicoderm Cq 7mg) 1 patch PRN DAILY PRN TD SMOKING CESSATION; Start 06/21/18 at 23:30; Stop 07/09/18 at 05:39; Status DC Vitamin D (Vitamin D3) 50,000 unit WEEKLY PO Last administered on 08/11/18at 09: 19; Start 06/23/18 at 16:30 Olanzapine (ZyPREXA) 5 mg DAILY PO Last administered on 06/25/18at 08:04; Start 06/24/18 at 09:00; Stop 06/26/18 at 00:00; Status DC Risperidone (RisperDAL) 1.75 mg HS PO Last administered on 07/06/18at 20:08; Start 06/24/18 at 21:00; Stop 07/07/18 at 12:40; Status DC Risperidone (RisperDAL) 2 mg HS PO Last administered on 08/10/18at 20:15; Start 07/07/18 at 21:00; Stop 08/10/18 at 21:07; Status DC Gabapentin (Neurontin) 600 mg QID PO Last administered on 08/12/18at 21:17; Start 07/08/18 at 21:00 Nicotine (Nicoderm Cq 21mg) 1 patch DAILY TD Last administered on 07/30/18at 08 :54; Start 07/09/18 at 09:00; Stop 07/31/18 at 04:33; Status DC Clozapine (Clozaril) 25 mg DAILY PO Last administered on 07/27/18at 09:38; Start 07/13/18 at 09:00; Stop 07/27/18 at 16:52; Status DC Vitamin D (Vitamin D3) 50,000 unit WEEKLY PO ; Start 07/24/18 at 09:00; Status Cancel Clozapine (Clozaril) 50 mg DAILY PO Last administered on 08/03/18at 07:51; Start 07/28/18 at 09:00; Stop 08/03/18 at 21:09; Status DC Nicotine (Nicoderm Cq 21mg) 1 patch PRN DAILY PRN TD SMOKING CESSATION Last administered on 08/12/18at 11:10; Start 07/31/18 at 04:45 Clozapine (Clozaril) 75 mg HS PO Last administered on 08/08/18at 19:36; Start 08/04/18 at 21:00; Stop 08/09/18 at 17:33; Status DC Clozapine (Clozaril) 25 mg 1X ONCE PO Last administered on 08/03/18at 21:25; Start 08/03/18 at 21:30; Stop 08/03/18 at 21:31; Status DC Clozapine (Clozaril) 100 mg QHS PO Last administered on 08/12/18at 21:17; Start 08/09/18 at 21:00 Risperidone (RisperDAL) 1.5 mg HS PO Last administered on 08/12/18at 21:17; Start 08/11/18 at 21:00 Trazodone HCl (Desyrel) 50 mg QHS PO ; Start 08/11/18 at 21:00; Stop 08/11/18 at 21:00; Status DC Ondansetron HCl (Zofran Odt) 4 mg PRN Q8HRS PRN PO NAUSEA/VOMITING Last administered on 08/12/18at 11:11; Start 08/12/18 at 10:45; Stop 08/12/18 at 16:29; Status DC Ondansetron HCl (Zofran Odt) 4 mg PRN Q4HRS PRN PO NAUSEA/VOMITING Last administered on 08/12/18at 16:37; Start 08/12/18 at 16:30 Active Scripts Active Reported Zyprexa (Olanzapine) 5 Mg Tablet 5 Mg PO BID NICODERM CQ 7mg (Nicotine) 1 Each Patch.td24 1 Patch TD PRN DAILY PRN Trazodone Hcl 50 Mg Tablet 50 Mg PO PRN QHS PRN Risperdal (Risperidone) 1 Mg Tablet 1.5 Mg PO HS Analgesic [place] (Methyl Salicylate/Menthol) 28 Gm Oint...g. 1 Gerri TP PRN QID PRN Milk Of Magnesia (Magnesium Hydroxide) 400 Mg/5 Ml Oral.susp 400 Mg PO PRN DAILY PRN Mag-Al Plus Xs Suspension (Mag Hydrox/Al Hydrox/Simeth) 30 Ml Oral.susp 15 Ml PO PRN AFTMEALHC PRN Buspirone Hcl 10 Mg Tablet 10 Mg PO TID Baclofen 10 Mg Tablet 10 Mg PO QID Gabapentin 100 Mg Capsule 100 Mg PO QID Gabapentin 800 Mg Tablet 800 Mg PO QID Levothyroxine Sodium 50 Mcg Tablet 50 Mcg PO DAILYAC Klonopin (Clonazepam) 0.5 Mg Tablet 1 Mg PO BID Norvasc (Amlodipine Besylate) 10 Mg Tablet 10 Mg PO DAILY Oxybutynin Chloride 5 Mg Tablet 2.5 Mg PO BID Depakote Er (Divalproex Sodium) 500 Mg Tab.er.24h 1,500 Mg PO HS Klor-Con M20 (Potassium Chloride) 20 Meq Tab.er.prt 20 Meq PO DAILY Cymbalta (Duloxetine Hcl) 60 Mg Capsule.dr 60 Mg PO DAILY Multivitamin with Iron Tablet (Multivitamin/Iron/Folic Acid) 1 Each Tablet 1 Tab PO DAILY Flomax (Tamsulosin Hcl) 0.4 Mg Cap.er.24h 0.8 Mg PO DAILY Olanzapine 5 Mg Tablet 2.5 Mg PO PRN Q2HR PRN MDD 10mg/ 24 hrs Remeron (Mirtazapine) 15 Mg Tablet 7.5 Mg PO HS Bisacodyl 10 Mg Supp.rect 10 Mg RC PRN DAILY PRN Tylenol (Acetaminophen) 325 Mg Tablet 650 Mg PO PRN Q6HRS PRN I have reviewed the current psychotropics carefully including drug interactions. Risk benefit ratio favors no change other than as noted in my dictated progress note. Diagnosis: Problems: (1) Depression (2) Schizoaffective disorder (3) Anxiety disorder (4) Impulse control disorder (5) Schizophrenia, paranoid, chronic with acute exacerbation CATHY EMERY MD Aug 12, 2018 23:01
[2018-08-13 05:39] VITALS: BP 125/84
[2018-08-13] MEDS: LEVOTHYROXINE 50 MCG TABLET PO SCH (06:05)
[2018-08-13] MEDS: busPIRone 10 MG TABLET. PO SCH ×3 (08:16→22:00)
[2018-08-13] MEDS: TAMSULOSIN 0.4 MG CAP.ER.24H. PO SCH (08:17)
[2018-08-13] MEDS: OXYBUTYNIN CHLORIDE 5 MG TABLET PO SCH ×2 (08:17→22:01)
[2018-08-13] MEDS: POTASSIUM CHLORIDE 20 MEQ TABLET.ER. PO SCH (08:17)
[2018-08-13] MEDS: amLODIPine BESYLATE 10 MG TABLET PO SCH (08:18)
[2018-08-13] MEDS: MULTIVITAMIN with MINERAL TABLET. PO SCH (08:18)
[2018-08-13] MEDS: GABAPENTIN 300 MG CAPSULE. PO SCH ×4 (08:18→22:01)
[2018-08-13] MEDS: ONDANSETRON ODT 4 MG TAB.RAPDIS PO PRN (08:20)
[2018-08-13] MEDS: clonazePAM 0.5 MG TABLET PO SCH ×2 (08:20→22:00)
[2018-08-13] MEDS: NICOTINE 21MG PATCH. TD PRN (08:21)
[2018-08-13 16:57] VITALS: BP 109/75
--- NOTE | 2018-08-13 17:05 | PN ---
DATE: 08/11/2018 PSYCHIATRIC PROGRESS NOTE This late entry 08/11/2017 covers elements not covered in my initial note. SUBJECTIVE: I met with the patient in the evening in his room at length. The patient slept 7-1/4 hours previous night. He has received the nicotine patch, he is tolerating it well. He remains somewhat withdrawn, but not aggressive. REVIEW OF SYSTEMS: No CV, , pulmonary, eye system symptoms on review. Gait unsteady with walker. MENTAL STATUS EXAM: Oriented to himself, situation. Speech has some latency, often responses monosyllabic. Abstraction fair, computation impaired, language function intact, attention span short. Mood and affect somewhat withdrawn, but less psychotic. LABORATORY DATA: Reviewed. IMPRESSION: Unchanged from initial note. PLAN: No change from initial note and continue to increase Clozaril gradually. MAN Ty EMERY MD DR: SARINA/nilda JOB#: [id number] / [id number]
--- NOTE | 2018-08-13 18:26 | PN ---
DATE: 08/12/2018 PSYCHIATRIC PROGRESS NOTE This is late entry for 08/12/2018 and covers elements not covered in my initial note. SUBJECTIVE: I met with the patient in the evening and staffed at a treatment team meeting with the entire team in the morning. Reviewed the patient's history, diagnosis, progress, placement options. REVIEW OF SYSTEMS: Ambulation impaired, with a walker. No CV, , pulmonary, eye, ENT system symptoms on review. Reliability fair. MENTAL STATUS EXAM: Oriented to himself and situation. Speech is coherent, abstraction fair, computation impaired, language function intact, attention span short. Mood and affect still somewhat withdrawn. LABORATORY DATA: Reviewed. IMPRESSION: Unchanged from initial note. PLAN: No change from initial note. MAN Ty EMERY MD DR: SARINA/nilda JOB#: [id number] / [id number]
[2018-08-13] MEDS: risperiDONE 0.5 MG TABLET. PO SCH (22:00)
[2018-08-13] MEDS: cloZAPine 100 MG TABLET PO SCH (22:00)
[2018-08-13] MEDS: DIVALPROEX ER 500 MG TAB.ER.24H PO SCH (22:01)
--- NOTE | 2018-08-13 22:47 | PDOC ---
Exam Note: Nguyễn Note: Please also refer to the separate dictated note~for this date of service dictated separately.~Patient seen individually. Discussed the patient with Nursing staff reviewed the chart.~Reviewed interim history and current functioning. Reviewed vital signs,~Labs/ Radiology~and current medications noted below. Continue current treatment with the changes noted in the dictated addendum note Assessment: Vital Signs: Vital Signs Date Time Temp Pulse Resp B/P (MAP) Pulse Ox O2 Delivery O2 Flow Rate FiO2 08/13/18 16:57 99.3 90 18 109/75 (86) 97 08/12/18 16:02 Room Air I&O Intake and Output 08/13/18 07:01 Intake Total 480 ml Balance 480 ml Intake Oral 480 ml Current Medications: Meds: Current Medications Acetaminophen (Tylenol) 650 mg PRN Q6HRS PRN PO PAIN / TEMP Last administered on 07/09/18 22:06; Start 06/21/18 at 20:15 Clonazepam (KlonoPIN) 1 mg BID PO Last administered on 08/13/18 22:00; Start 06/21/18 at 21:00 Gabapentin (Neurontin) 900 mg QID PO Last administered on 07/08/18at 16:58; Start 06/21/18 at 21:00; Stop 07/08/18 at 17:47; Status DC Al Hydroxide/Mg Hydroxide (Mylanta Plus Xs) 15 ml PRN AFTMEALHC PRN PO GI SYMPTOMS; Start 06/21/18 at 20:15 Magnesium Hydroxide (Milk Of Magnesia) 400 mg PRN DAILY PRN PO CONSTIPATION Last administered on 08/12/18 19:23; Start 06/21/18 at 20:15 Multi-Ingredient Ointment (Analgesic [place]) 1 gerri PRN QID PRN TP MUSCLE PAIN; Start 06/21/18 at 20:15 Oxybutynin Chloride (Ditropan) 2.5 mg BID PO Last administered on 08/13/18 22: 01; Start 06/21/18 at 21:00 Potassium Chloride (Klor-Con) 20 meq DAILY PO Last administered on 08/13/18 08: 17; Start 06/22/18 at 09:00 Tamsulosin HCl (Flomax) 0.8 mg DAILY PO Last administered on 08/13/18 08:17; Start 06/22/18 at 09:00 Amlodipine Besylate (Norvasc) 10 mg DAILY PO Last administered on 08/13/18 08: 18; Start 06/22/18 at 09:00 Baclofen (Lioresal) 10 mg QID PO Last administered on 07/07/18at 19:36; Start 06/21/18 at 21:00; Stop 07/08/18 at 11:48; Status DC Bisacodyl (Dulcolax Supp) 10 mg PRN DAILY PRN [place] CONSTIPATION; Start 06/21/18 at 20:45 Buspirone HCl (Buspar) 10 mg TID PO Last administered on 08/13/18 22:00; Start 06/21/18 at 21:00 Divalproex Sodium (Depakote Er) 1,500 mg HS PO Last administered on 08/13/18 22 :01; Start 06/21/18 at 21:00 Non-Formulary Medication (Gabapentin ) 800 mg QID PO ; Start 06/21/18 at 21:00 ; Status UNV Levothyroxine Sodium (Synthroid) 50 mcg DAILY06 PO Last administered on 06:05; Start 06/22/18 at 06:00 Multivitamins/ Calcium (Thera-M Plus) 1 tab DAILY PO Last administered on 08:18; Start 06/22/18 at 09:00 Olanzapine (ZyPREXA ZYDIS) 2.5 mg PRN Q2HR PRN PO PSYCHOSIS Last administered on 08/10/18 20:19; Start 06/21/18 at 20:45 Olanzapine (ZyPREXA) 5 mg BID PO Last administered on 06/23/18at 08:47; Start 06/21/18 at 21:00; Stop 06/23/18 at 17:06; Status DC Risperidone (RisperDAL) 1.5 mg HS PO Last administered on 06/23/18at 19:45; Start 06/21/18 at 21:00; Stop 06/24/18 at 11:06; Status DC Trazodone HCl (Desyrel) 50 mg PRN QHS PRN PO INSOMNIA Last administered on 20:19; Start 06/21/18 at 21:00; Stop 1/1/19 at 21:07; Status DC Nicotine (Nicoderm Cq 7mg) 1 patch PRN DAILY PRN TD SMOKING CESSATION; Start 06/21/18 at 23:30; Stop 07/09/18 at 05:39; Status DC Vitamin D (Vitamin D3) 50,000 unit WEEKLY PO Last administered on 08/11/18at 09: 19; Start 06/23/18 at 16:30 Olanzapine (ZyPREXA) 5 mg DAILY PO Last administered on 06/25/18at 08:04; Start 06/24/18 at 09:00; Stop 06/26/18 at 00:00; Status DC Risperidone (RisperDAL) 1.75 mg HS PO Last administered on 07/06/18at 20:08; Start 06/24/18 at 21:00; Stop 07/07/18 at 12:40; Status DC Risperidone (RisperDAL) 2 mg HS PO Last administered on 08/10/18at 20:15; Start 07/07/18 at 21:00; Stop 08/10/18 at 21:07; Status DC Gabapentin (Neurontin) 600 mg QID PO Last administered on 08/13/18at 22:01; Start 07/08/18 at 21:00 Nicotine (Nicoderm Cq 21mg) 1 patch DAILY TD Last administered on 07/30/18at 08 :54; Start 07/09/18 at 09:00; Stop 07/31/18 at 04:33; Status DC Clozapine (Clozaril) 25 mg DAILY PO Last administered on 07/27/18at 09:38; Start 07/13/18 at 09:00; Stop 07/27/18 at 16:52; Status DC Vitamin D (Vitamin D3) 50,000 unit WEEKLY PO ; Start 07/24/18 at 09:00; Status Cancel Clozapine (Clozaril) 50 mg DAILY PO Last administered on 08/03/18at 07:51; Start 07/28/18 at 09:00; Stop 08/03/18 at 21:09; Status DC Nicotine (Nicoderm Cq 21mg) 1 patch PRN DAILY PRN TD SMOKING CESSATION Last administered on 08/13/18at 08:21; Start 07/31/18 at 04:45 Clozapine (Clozaril) 75 mg HS PO Last administered on 08/08/18at 19:36; Start 08/04/18 at 21:00; Stop 08/09/18 at 17:33; Status DC Clozapine (Clozaril) 25 mg 1X ONCE PO Last administered on 08/03/18at 21:25; Start 08/03/18 at 21:30; Stop 08/03/18 at 21:31; Status DC Clozapine (Clozaril) 100 mg QHS PO Last administered on 08/13/18at 22:00; Start 08/09/18 at 21:00 Risperidone (RisperDAL) 1.5 mg HS PO Last administered on 08/13/18at 22:00; Start 08/11/18 at 21:00 Trazodone HCl (Desyrel) 50 mg QHS PO ; Start 08/11/18 at 21:00; Stop 08/11/18 at 21:00; Status DC Ondansetron HCl (Zofran Odt) 4 mg PRN Q8HRS PRN PO NAUSEA/VOMITING Last administered on 08/12/18at 11:11; Start 08/12/18 at 10:45; Stop 08/12/18 at 16:29; Status DC Ondansetron HCl (Zofran Odt) 4 mg PRN Q4HRS PRN PO NAUSEA/VOMITING Last administered on 08/13/18at 08:20; Start 08/12/18 at 16:30 Active Scripts Active Reported Zyprexa (Olanzapine) 5 Mg Tablet 5 Mg PO BID NICODERM CQ 7mg (Nicotine) 1 Each Patch.td24 1 Patch TD PRN DAILY PRN Trazodone Hcl 50 Mg Tablet 50 Mg PO PRN QHS PRN Risperdal (Risperidone) 1 Mg Tablet 1.5 Mg PO HS Analgesic [place] (Methyl Salicylate/Menthol) 28 Gm Oint...g. 1 Gerri TP PRN QID PRN Milk Of Magnesia (Magnesium Hydroxide) 400 Mg/5 Ml Oral.susp 400 Mg PO PRN DAILY PRN Mag-Al Plus Xs Suspension (Mag Hydrox/Al Hydrox/Simeth) 30 Ml Oral.susp 15 Ml PO PRN AFTMEALHC PRN Buspirone Hcl 10 Mg Tablet 10 Mg PO TID Baclofen 10 Mg Tablet 10 Mg PO QID Gabapentin 100 Mg Capsule 100 Mg PO QID Gabapentin 800 Mg Tablet 800 Mg PO QID Levothyroxine Sodium 50 Mcg Tablet 50 Mcg PO DAILYAC Klonopin (Clonazepam) 0.5 Mg Tablet 1 Mg PO BID Norvasc (Amlodipine Besylate) 10 Mg Tablet 10 Mg PO DAILY Oxybutynin Chloride 5 Mg Tablet 2.5 Mg PO BID Depakote Er (Divalproex Sodium) 500 Mg Tab.er.24h 1,500 Mg PO HS Klor-Con M20 (Potassium Chloride) 20 Meq Tab.er.prt 20 Meq PO DAILY Cymbalta (Duloxetine Hcl) 60 Mg Capsule.dr 60 Mg PO DAILY Multivitamin with Iron Tablet (Multivitamin/Iron/Folic Acid) 1 Each Tablet 1 Tab PO DAILY Flomax (Tamsulosin Hcl) 0.4 Mg Cap.er.24h 0.8 Mg PO DAILY Olanzapine 5 Mg Tablet 2.5 Mg PO PRN Q2HR PRN MDD 10mg/ 24 hrs Remeron (Mirtazapine) 15 Mg Tablet 7.5 Mg PO HS Bisacodyl 10 Mg Supp.rect 10 Mg RC PRN DAILY PRN Tylenol (Acetaminophen) 325 Mg Tablet 650 Mg PO PRN Q6HRS PRN I have reviewed the current psychotropics carefully including drug interactions. Risk benefit ratio favors no change other than as noted in my dictated progress note. Diagnosis: Problems: (1) Depression (2) Schizoaffective disorder (3) Anxiety disorder (4) Impulse control disorder (5) Schizophrenia, paranoid, chronic with acute exacerbation CATHY EMERY MD Aug 13, 2018 22:47
[2018-08-14] MEDS: LEVOTHYROXINE 50 MCG TABLET PO SCH (05:19)
[2018-08-14 05:45] VITALS: BP 131/84
[2018-08-14] MEDS: GABAPENTIN 300 MG CAPSULE. PO SCH ×4 (08:07→19:19)
[2018-08-14] MEDS: MULTIVITAMIN with MINERAL TABLET. PO SCH (08:07)
[2018-08-14] MEDS: TAMSULOSIN 0.4 MG CAP.ER.24H. PO SCH (08:07)
[2018-08-14] MEDS: POTASSIUM CHLORIDE 20 MEQ TABLET.ER. PO SCH (08:07)
[2018-08-14] MEDS: OXYBUTYNIN CHLORIDE 5 MG TABLET PO SCH ×2 (08:07→19:19)
[2018-08-14] MEDS: busPIRone 10 MG TABLET. PO SCH ×3 (08:07→19:19)
[2018-08-14] MEDS: amLODIPine BESYLATE 10 MG TABLET PO SCH (08:08)
[2018-08-14] MEDS: clonazePAM 0.5 MG TABLET PO SCH ×2 (08:10→19:19)
[2018-08-14] MEDS: NICOTINE 21MG PATCH. TD PRN (10:40)
[2018-08-14 16:19] VITALS: BP 103/71
[2018-08-14] MEDS: cloZAPine 100 MG TABLET PO SCH (19:19)
[2018-08-14] MEDS: risperiDONE 0.5 MG TABLET. PO SCH (19:20)
[2018-08-14] MEDS: DIVALPROEX ER 500 MG TAB.ER.24H PO SCH (19:20)
--- NOTE | 2018-08-14 21:08 | PDOC ---
Exam Note: Nguyễn Note: Please also refer to the separate dictated note~for this date of service dictated separately.~Patient seen individually. Discussed the patient with Nursing staff reviewed the chart.~Reviewed interim history and current functioning. Reviewed vital signs,~Labs/ Radiology~and current medications noted below. Continue current treatment with the changes noted in the dictated addendum note Assessment: Vital Signs: Vital Signs Date Time Temp Pulse Resp B/P (MAP) Pulse Ox O2 Delivery O2 Flow Rate FiO2 08/14/18 16:19 99.0 92 20 103/71 (82) 96 Room Air I&O Intake and Output 08/14/18 07:01 Intake Total 1080 ml Balance 1080 ml Intake Oral 1080 ml Current Medications: Meds: Current Medications Acetaminophen (Tylenol) 650 mg PRN Q6HRS PRN PO PAIN / TEMP Last administered on 07/09/18at 22:06; Start 06/21/18 at 20:15 Clonazepam (KlonoPIN) 1 mg BID PO Last administered on 08/14/18 19:19; Start 06/21/18 at 21:00 Gabapentin (Neurontin) 900 mg QID PO Last administered on 07/08/18at 16:58; Start 06/21/18 at 21:00; Stop 07/08/18 at 17:47; Status DC Al Hydroxide/Mg Hydroxide (Mylanta Plus Xs) 15 ml PRN AFTMEALHC PRN PO GI SYMPTOMS; Start 06/21/18 at 20:15 Magnesium Hydroxide (Milk Of Magnesia) 400 mg PRN DAILY PRN PO CONSTIPATION Last administered on 08/12/18 19:23; Start 06/21/18 at 20:15 Multi-Ingredient Ointment (Analgesic [place]) 1 gerri PRN QID PRN TP MUSCLE PAIN; Start 06/21/18 at 20:15 Oxybutynin Chloride (Ditropan) 2.5 mg BID PO Last administered on 08/14/18 19: 19; Start 06/21/18 at 21:00 Potassium Chloride (Klor-Con) 20 meq DAILY PO Last administered on 08/14/18 08: 07; Start 06/22/18 at 09:00 Tamsulosin HCl (Flomax) 0.8 mg DAILY PO Last administered on 08/14/18 08:07; Start 06/22/18 at 09:00 Amlodipine Besylate (Norvasc) 10 mg DAILY PO Last administered on 08/14/18 08: 08; Start 06/22/18 at 09:00 Baclofen (Lioresal) 10 mg QID PO Last administered on 07/07/18at 19:36; Start 06/21/18 at 21:00; Stop 07/08/18 at 11:48; Status DC Bisacodyl (Dulcolax Supp) 10 mg PRN DAILY PRN [place] CONSTIPATION; Start 06/21/18 at 20:45 Buspirone HCl (Buspar) 10 mg TID PO Last administered on 08/14/18 19:19; Start 06/21/18 at 21:00 Divalproex Sodium (Depakote Er) 1,500 mg HS PO Last administered on 08/14/18 19 :20; Start 06/21/18 at 21:00 Non-Formulary Medication (Gabapentin ) 800 mg QID PO ; Start 06/21/18 at 21:00 ; Status UNV Levothyroxine Sodium (Synthroid) 50 mcg DAILY06 PO Last administered on 05:19; Start 06/22/18 at 06:00 Multivitamins/ Calcium (Thera-M Plus) 1 tab DAILY PO Last administered on 08:07; Start 06/22/18 at 09:00 Olanzapine (ZyPREXA ZYDIS) 2.5 mg PRN Q2HR PRN PO PSYCHOSIS Last administered on 08/10/18 20:19; Start 06/21/18 at 20:45 Olanzapine (ZyPREXA) 5 mg BID PO Last administered on 06/23/18at 08:47; Start 06/21/18 at 21:00; Stop 06/23/18 at 17:06; Status DC Risperidone (RisperDAL) 1.5 mg HS PO Last administered on 06/23/18 19:45; Start 06/21/18 at 21:00; Stop 06/24/18 at 11:06; Status DC Trazodone HCl (Desyrel) 50 mg PRN QHS PRN PO INSOMNIA Last administered on 20:19; Start 06/21/18 at 21:00; Stop 08/10/18 at 21:07; Status DC Nicotine (Nicoderm Cq 7mg) 1 patch PRN DAILY PRN TD SMOKING CESSATION; Start 06/21/18 at 23:30; Stop 07/09/18 at 05:39; Status DC Vitamin D (Vitamin D3) 50,000 unit WEEKLY PO Last administered on 08/11/18at 09: 19; Start 06/23/18 at 16:30 Olanzapine (ZyPREXA) 5 mg DAILY PO Last administered on 06/25/18at 08:04; Start 06/24/18 at 09:00; Stop 06/26/18 at 00:00; Status DC Risperidone (RisperDAL) 1.75 mg HS PO Last administered on 07/06/18at 20:08; Start 06/24/18 at 21:00; Stop 07/07/18 at 12:40; Status DC Risperidone (RisperDAL) 2 mg HS PO Last administered on 08/10/18at 20:15; Start 07/07/18 at 21:00; Stop 08/10/18 at 21:07; Status DC Gabapentin (Neurontin) 600 mg QID PO Last administered on 08/14/18at 19:19; Start 07/08/18 at 21:00 Nicotine (Nicoderm Cq 21mg) 1 patch DAILY TD Last administered on 07/30/18at 08 :54; Start 07/09/18 at 09:00; Stop 07/31/18 at 04:33; Status DC Clozapine (Clozaril) 25 mg DAILY PO Last administered on 07/27/18at 09:38; Start 07/13/18 at 09:00; Stop 07/27/18 at 16:52; Status DC Vitamin D (Vitamin D3) 50,000 unit WEEKLY PO ; Start 07/24/18 at 09:00; Status Cancel Clozapine (Clozaril) 50 mg DAILY PO Last administered on 08/03/18at 07:51; Start 07/28/18 at 09:00; Stop 08/03/18 at 21:09; Status DC Nicotine (Nicoderm Cq 21mg) 1 patch PRN DAILY PRN TD SMOKING CESSATION Last administered on 08/14/18at 10:40; Start 07/31/18 at 04:45 Clozapine (Clozaril) 75 mg HS PO Last administered on 08/08/18at 19:36; Start 08/04/18 at 21:00; Stop 08/09/18 at 17:33; Status DC Clozapine (Clozaril) 25 mg 1X ONCE PO Last administered on 08/03/18at 21:25; Start 08/03/18 at 21:30; Stop 08/03/18 at 21:31; Status DC Clozapine (Clozaril) 100 mg QHS PO Last administered on 08/14/18at 19:19; Start 08/09/18 at 21:00 Risperidone (RisperDAL) 1.5 mg HS PO Last administered on 08/14/18at 19:20; Start 08/11/18 at 21:00 Trazodone HCl (Desyrel) 50 mg QHS PO ; Start 08/11/18 at 21:00; Stop 08/11/18 at 21:00; Status DC Ondansetron HCl (Zofran Odt) 4 mg PRN Q8HRS PRN PO NAUSEA/VOMITING Last administered on 08/12/18at 11:11; Start 08/12/18 at 10:45; Stop 08/12/18 at 16:29; Status DC Ondansetron HCl (Zofran Odt) 4 mg PRN Q4HRS PRN PO NAUSEA/VOMITING Last administered on 08/13/18at 08:20; Start 08/12/18 at 16:30 Active Scripts Active Reported Zyprexa (Olanzapine) 5 Mg Tablet 5 Mg PO BID NICODERM CQ 7mg (Nicotine) 1 Each Patch.td24 1 Patch TD PRN DAILY PRN Trazodone Hcl 50 Mg Tablet 50 Mg PO PRN QHS PRN Risperdal (Risperidone) 1 Mg Tablet 1.5 Mg PO HS Analgesic [place] (Methyl Salicylate/Menthol) 28 Gm Oint...g. 1 Gerri TP PRN QID PRN Milk Of Magnesia (Magnesium Hydroxide) 400 Mg/5 Ml Oral.susp 400 Mg PO PRN DAILY PRN Mag-Al Plus Xs Suspension (Mag Hydrox/Al Hydrox/Simeth) 30 Ml Oral.susp 15 Ml PO PRN AFTMEALHC PRN Buspirone Hcl 10 Mg Tablet 10 Mg PO TID Baclofen 10 Mg Tablet 10 Mg PO QID Gabapentin 100 Mg Capsule 100 Mg PO QID Gabapentin 800 Mg Tablet 800 Mg PO QID Levothyroxine Sodium 50 Mcg Tablet 50 Mcg PO DAILYAC Klonopin (Clonazepam) 0.5 Mg Tablet 1 Mg PO BID Norvasc (Amlodipine Besylate) 10 Mg Tablet 10 Mg PO DAILY Oxybutynin Chloride 5 Mg Tablet 2.5 Mg PO BID Depakote Er (Divalproex Sodium) 500 Mg Tab.er.24h 1,500 Mg PO HS Klor-Con M20 (Potassium Chloride) 20 Meq Tab.er.prt 20 Meq PO DAILY Cymbalta (Duloxetine Hcl) 60 Mg Capsule.dr 60 Mg PO DAILY Multivitamin with Iron Tablet (Multivitamin/Iron/Folic Acid) 1 Each Tablet 1 Tab PO DAILY Flomax (Tamsulosin Hcl) 0.4 Mg Cap.er.24h 0.8 Mg PO DAILY Olanzapine 5 Mg Tablet 2.5 Mg PO PRN Q2HR PRN MDD 10mg/ 24 hrs Remeron (Mirtazapine) 15 Mg Tablet 7.5 Mg PO HS Bisacodyl 10 Mg Supp.rect 10 Mg RC PRN DAILY PRN Tylenol (Acetaminophen) 325 Mg Tablet 650 Mg PO PRN Q6HRS PRN I have reviewed the current psychotropics carefully including drug interactions. Risk benefit ratio favors no change other than as noted in my dictated progress note. Diagnosis: Problems: (1) Depression (2) Schizoaffective disorder (3) Anxiety disorder (4) Impulse control disorder (5) Schizophrenia, paranoid, chronic with acute exacerbation CATHY EMERY MD Aug 14, 2018 21:07
--- NOTE | 2018-08-14 23:23 | PN ---
DATE: 08/14/2018 This note covers elements not covered in my initial note of 08/14/2018. SUBJECTIVE: I met with the patient in the evening. The patient slept 6-1/2 hours previous night. I met with him in his room. For the most part, he is doing better, not exit seeking, wandering, not checking the doors, somewhat paranoid at times. REVIEW OF SYSTEMS: Ambulation impaired with walker. No CV, , pulmonary, eye, ENT system symptoms on review. MENTAL STATUS EXAM: Oriented to himself and situation. Speech is coherent, abstraction fair, computation impaired, language function intact, attention span short. Mood and affect somewhat withdrawn. LABORATORY DATA: Reviewed. IMPRESSION: Schizoaffective disorder, bipolar type, mixed with psychotic features; anxiety disorder, unspecified. PLAN: The patient is on Klonopin 1 mg b.i.d. We will reduce to 0.75 in the morning, 1 in the evening for 2 days, then 0.75 mg twice a day thereafter. Continue rest of the psychotropics and gradually increase Clozaril further. Social service staff is actively looking for placement options. CATHY EMERY MD DR: SARINA/nilda JOB#: [id number] / [id number]
[2018-08-15] MEDS: LEVOTHYROXINE 50 MCG TABLET PO SCH (05:04)
[2018-08-15 06:07] VITALS: BP 120/90
[2018-08-15] MEDS: GABAPENTIN 300 MG CAPSULE. PO SCH ×4 (08:07→20:01)
[2018-08-15] MEDS: busPIRone 10 MG TABLET. PO SCH ×3 (08:07→20:03)
[2018-08-15] MEDS: OXYBUTYNIN CHLORIDE 5 MG TABLET PO SCH ×2 (08:08→20:03)
[2018-08-15] MEDS: MULTIVITAMIN with MINERAL TABLET. PO SCH (08:08)
[2018-08-15] MEDS: POTASSIUM CHLORIDE 20 MEQ TABLET.ER. PO SCH (08:08)
[2018-08-15] MEDS: TAMSULOSIN 0.4 MG CAP.ER.24H. PO SCH (08:08)
[2018-08-15] MEDS: amLODIPine BESYLATE 10 MG TABLET PO SCH (08:09)
[2018-08-15] MEDS: clonazePAM 0.5 MG TABLET PO SCH (08:12)
[2018-08-15 10:29] LABS: BASO % 0 % (0-3); EOS # 0.1 x10^3/uL (0.0-0.7); EOS % 2 % (0-3); HEMATOCRIT 38.9 % (39.0-53.0); HEMOGLOBIN 13.6 g/dL (13.0-17.5); LYMPH # 1.2 x10^3/uL (1.0-4.8); LYMPH % 14 % (24-48); MEAN CORPUSCULAR HEMOGLOBIN 31 pg (25-35); MEAN CORPUSCULAR HGB CONC 35 g/dL (31-37); MEAN CORPUSCULAR VOLUME 87 fL (79-100); MONO # 0.8 x10^3/uL (0.0-1.1); MONO % 10 % (0-9); NEUT # 6.1 x10^3uL (1.8-7.7); NEUT % 74 % (31-73); PLATELET COUNT 358 x10^3/uL (140-400); RED BLOOD COUNT 4.45 x10^6/uL (4.30-5.70); RED CELL DISTRIBUTION WIDTH 13.3 % (11.5-14.5); WHITE BLOOD COUNT 8.3 x10^3/uL (4.0-11.0)
[2018-08-15 10:49] LABS: ALBUMIN 2.9 g/dL (3.4-5.0); ALBUMIN/GLOBULIN RATIO 0.7 (1.0-1.7); CALCIUM 8.9 mg/dL (8.5-10.1); CREATININE 0.6 mg/dL (0.7-1.3); GFR 138.9; POTASSIUM 3.9 mmol/L (3.5-5.1); TOTAL BILIRUBIN 0.4 mg/dL (0.2-1.0); TOTAL PROTEIN 6.8 g/dL (6.4-8.2)
[2018-08-15 16:09] VITALS: BP 112/75
--- NOTE | 2018-08-15 17:51 | PN ---
DATE: 08/13/2018 PSYCHIATRIC PROGRESS NOTE This late entry, 08/13/2018, covers elements not covered in my initial note. SUBJECTIVE: I met with the patient in the evening. The patient slept 6-1/4 hours previous night. He has been somewhat withdrawn, questionably hallucinating per nursing report. His brother visited, took his jacket to have it repaired and the patient was happy with this. He has been paranoid. Slept 6-1/4 hours. REVIEW OF SYSTEMS: Ambulation impaired with walker. No CV, , pulmonary, eye, ENT system symptoms on review. MENTAL STATUS EXAM: Oriented to himself and situation. Speech is coherent, has some latency. Abstraction fair, computation impaired, language function intact, attention span short. Mood and affect somewhat withdrawn. LABORATORY DATA: Reviewed. IMPRESSION: Unchanged from initial note. PLAN: No change from initial note. MAN Ty EMERY MD DR: SARINA/nilda JOB#: [id number] / [id number]
[2018-08-15] MEDS: risperiDONE 0.5 MG TABLET. PO SCH (20:01)
[2018-08-15] MEDS: cloZAPine 100 MG TABLET PO SCH (20:03)
[2018-08-15] MEDS: DIVALPROEX ER 500 MG TAB.ER.24H PO SCH (20:03)
[2018-08-15] MEDS: clonazePAM 1 MG TABLET PO SCH (20:05)
--- NOTE | 2018-08-15 22:48 | PDOC ---
Exam Note: Nguyễn Note: Please also refer to the separate dictated note~for this date of service dictated separately.~Patient seen individually. Discussed the patient with Nursing staff reviewed the chart.~Reviewed interim history and current functioning. Reviewed vital signs,~Labs/ Radiology~and current medications noted below. Continue current treatment with the changes noted in the dictated addendum note Assessment: Vital Signs: Vital Signs Date Time Temp Pulse Resp B/P (MAP) Pulse Ox O2 Delivery O2 Flow Rate FiO2 08/15/18 16:09 98.0 80 20 112/75 (87) 96 08/15/18 06:07 Room Air I&O Intake and Output 08/15/18 07:01 Intake Total 960 ml Balance 960 ml Intake Oral 960 ml Labs: Laboratory Tests Test 08/15/18 10:10 White Blood Count 8.3 x10^3/uL (4.0-11.0) Red Blood Count 4.45 x10^6/uL (4.30-5.70) Hemoglobin 13.6 g/dL (13.0-17.5) Hematocrit 38.9 % (39.0-53.0) L Mean Corpuscular Volume 87 fL (79-100) Mean Corpuscular Hemoglobin 31 pg (25-35) Mean Corpuscular Hemoglobin Concent 35 g/dL (31-37) Red Cell Distribution Width 13.3 % (11.5-14.5) Platelet Count 358 x10^3/uL (140-400) Neutrophils (%) (Auto) 74 % (31-73) H Lymphocytes (%) (Auto) 14 % (24-48) L Monocytes (%) (Auto) 10 % (0-9) H Eosinophils (%) (Auto) 2 % (0-3) Basophils (%) (Auto) 0 % (0-3) Neutrophils # (Auto) 6.1 x10^3uL (1.8-7.7) Lymphocytes # (Auto) 1.2 x10^3/uL (1.0-4.8) Monocytes # (Auto) 0.8 x10^3/uL (0.0-1.1) Eosinophils # (Auto) 0.1 x10^3/uL (0.0-0.7) Basophils # (Auto) 0.0 x10^3/uL (0.0-0.2) Sodium Level 135 mmol/L (136-145) L Potassium Level 3.9 mmol/L (3.5-5.1) Chloride Level 98 mmol/L (98-107) Carbon Dioxide Level 28 mmol/L (21-32) Anion Gap 9 (6-14) Blood Urea Nitrogen 8 mg/dL (8-26) Creatinine 0.6 mg/dL (0.7-1.3) L Estimated GFR (Cockcroft-Gault) 138.9 BUN/Creatinine Ratio 13 (6-20) Glucose Level 154 mg/dL (70-99) H Lactic Acid Level 2.3 mmol/L (0.4-2.0) H Calcium Level 8.9 mg/dL (8.5-10.1) Total Bilirubin 0.4 mg/dL (0.2-1.0) Aspartate Amino Transferase (AST) 15 U/L (15-37) Alanine Aminotransferase (ALT) 20 U/L (16-63) Alkaline Phosphatase 65 U/L (46-116) Total Protein 6.8 g/dL (6.4-8.2) Albumin 2.9 g/dL (3.4-5.0) L Albumin/Globulin Ratio 0.7 (1.0-1.7) L Current Medications: Meds: Current Medications Acetaminophen (Tylenol) 650 mg PRN Q6HRS PRN PO PAIN / TEMP Last administered on 07/09/18at 22:06; Start 06/21/18 at 20:15 Clonazepam (KlonoPIN) 1 mg BID PO Last administered on 08/14/18at 19:19; Start 06/21/18 at 21:00; Stop 08/14/18 at 21:25; Status DC Gabapentin (Neurontin) 900 mg QID PO Last administered on 07/08/18at 16:58; Start 06/21/18 at 21:00; Stop 07/08/18 at 17:47; Status DC Al Hydroxide/Mg Hydroxide (Mylanta Plus Xs) 15 ml PRN AFTMEALHC PRN PO GI SYMPTOMS; Start 06/21/18 at 20:15 Magnesium Hydroxide (Milk Of Magnesia) 400 mg PRN DAILY PRN PO CONSTIPATION Last administered on 08/12/18at 19:23; Start 06/21/18 at 20:15 Multi-Ingredient Ointment (Analgesic [place]) 1 gerri PRN QID PRN TP MUSCLE PAIN; Start 06/21/18 at 20:15 Oxybutynin Chloride (Ditropan) 2.5 mg BID PO Last administered on 08/15/18 20: 03; Start 06/21/18 at 21:00 Potassium Chloride (Klor-Con) 20 meq DAILY PO Last administered on 08/15/18 08: 08; Start 06/22/18 at 09:00 Tamsulosin HCl (Flomax) 0.8 mg DAILY PO Last administered on 08/15/18 08:08; Start 06/22/18 at 09:00 Amlodipine Besylate (Norvasc) 10 mg DAILY PO Last administered on 08/15/18 08: 09; Start 06/22/18 at 09:00 Baclofen (Lioresal) 10 mg QID PO Last administered on 07/07/18at 19:36; Start 06/21/18 at 21:00; Stop 07/08/18 at 11:48; Status DC Bisacodyl (Dulcolax Supp) 10 mg PRN DAILY PRN [place] CONSTIPATION; Start 06/21/18 at 20:45 Buspirone HCl (Buspar) 10 mg TID PO Last administered on 08/15/18 20:03; Start 06/21/18 at 21:00 Divalproex Sodium (Depakote Er) 1,500 mg HS PO Last administered on 08/15/18 20 :03; Start 06/21/18 at 21:00 Non-Formulary Medication (Gabapentin ) 800 mg QID PO ; Start 06/21/18 at 21:00 ; Status UNV Levothyroxine Sodium (Synthroid) 50 mcg DAILY06 PO Last administered on 05:04; Start 06/22/18 at 06:00 Multivitamins/ Calcium (Thera-M Plus) 1 tab DAILY PO Last administered on 08:08; Start 06/22/18 at 09:00 Olanzapine (ZyPREXA ZYDIS) 2.5 mg PRN Q2HR PRN PO PSYCHOSIS Last administered on 08/10/18 20:19; Start 06/21/18 at 20:45 Olanzapine (ZyPREXA) 5 mg BID PO Last administered on 06/23/18at 08:47; Start 06/21/18 at 21:00; Stop 06/23/18 at 17:06; Status DC Risperidone (RisperDAL) 1.5 mg HS PO Last administered on 06/23/18at 19:45; Start 06/21/18 at 21:00; Stop 06/24/18 at 11:06; Status DC Trazodone HCl (Desyrel) 50 mg PRN QHS PRN PO INSOMNIA Last administered on 20:19; Start 06/21/18 at 21:00; Stop 08/10/18 at 21:07; Status DC Nicotine (Nicoderm Cq 7mg) 1 patch PRN DAILY PRN TD SMOKING CESSATION; Start 06/21/18 at 23:30; Stop 07/09/18 at 05:39; Status DC Vitamin D (Vitamin D3) 50,000 unit WEEKLY PO Last administered on 08/11/18 09: 19; Start 06/23/18 at 16:30 Olanzapine (ZyPREXA) 5 mg DAILY PO Last administered on 06/25/18at 08:04; Start 06/24/18 at 09:00; Stop 06/26/18 at 00:00; Status DC Risperidone (RisperDAL) 1.75 mg HS PO Last administered on 07/06/18at 20:08; Start 06/24/18 at 21:00; Stop 07/07/18 at 12:40; Status DC Risperidone (RisperDAL) 2 mg HS PO Last administered on 08/10/18at 20:15; Start 07/07/18 at 21:00; Stop 08/10/18 at 21:07; Status DC Gabapentin (Neurontin) 600 mg QID PO Last administered on 08/15/18at 20:01; Start 07/08/18 at 21:00 Nicotine (Nicoderm Cq 21mg) 1 patch DAILY TD Last administered on 07/30/18at 08 :54; Start 07/09/18 at 09:00; Stop 07/31/18 at 04:33; Status DC Clozapine (Clozaril) 25 mg DAILY PO Last administered on 07/27/18at 09:38; Start 07/13/18 at 09:00; Stop 07/27/18 at 16:52; Status DC Vitamin D (Vitamin D3) 50,000 unit WEEKLY PO ; Start 07/24/18 at 09:00; Status Cancel Clozapine (Clozaril) 50 mg DAILY PO Last administered on 08/03/18at 07:51; Start 07/28/18 at 09:00; Stop 08/03/18 at 21:09; Status DC Nicotine (Nicoderm Cq 21mg) 1 patch PRN DAILY PRN TD SMOKING CESSATION Last administered on 08/14/18at 10:40; Start 07/31/18 at 04:45 Clozapine (Clozaril) 75 mg HS PO Last administered on 08/08/18at 19:36; Start 08/04/18 at 21:00; Stop 08/09/18 at 17:33; Status DC Clozapine (Clozaril) 25 mg 1X ONCE PO Last administered on 08/03/18at 21:25; Start 08/03/18 at 21:30; Stop 08/03/18 at 21:31; Status DC Clozapine (Clozaril) 100 mg QHS PO Last administered on 08/15/18 20:03; Start 08/09/18 at 21:00 Risperidone (RisperDAL) 1.5 mg HS PO Last administered on 08/15/18 20:01; Start 08/11/18 at 21:00 Trazodone HCl (Desyrel) 50 mg QHS PO ; Start 08/11/18 at 21:00; Stop 08/11/18 at 21:00; Status DC Ondansetron HCl (Zofran Odt) 4 mg PRN Q8HRS PRN PO NAUSEA/VOMITING Last administered on 08/12/18 11:11; Start 08/12/18 at 10:45; Stop 08/12/18 at 16:29; Status DC Ondansetron HCl (Zofran Odt) 4 mg PRN Q4HRS PRN PO NAUSEA/VOMITING Last administered on 08/13/18 08:20; Start 08/12/18 at 16:30 Clonazepam (KlonoPIN) 0.75 mg DAILY PO Last administered on 08/15/18at 08:12; Start 08/15/18 at 09:00 Clonazepam (KlonoPIN) 1 mg HS PO Last administered on 08/15/18 20:05; Start 08/15/18 at 21:00; Stop 08/16/18 at 21:00 Clonazepam (KlonoPIN) 0.75 mg HS PO ; Start 08/17/18 at 21:00 Active Scripts Active Reported Zyprexa (Olanzapine) 5 Mg Tablet 5 Mg PO BID NICODERM CQ 7mg (Nicotine) 1 Each Patch.td24 1 Patch TD PRN DAILY PRN Trazodone Hcl 50 Mg Tablet 50 Mg PO PRN QHS PRN Risperdal (Risperidone) 1 Mg Tablet 1.5 Mg PO HS Analgesic [place] (Methyl Salicylate/Menthol) 28 Gm Oint...g. 1 Gerri TP PRN QID PRN Milk Of Magnesia (Magnesium Hydroxide) 400 Mg/5 Ml Oral.susp 400 Mg PO PRN DAILY PRN Mag-Al Plus Xs Suspension (Mag Hydrox/Al Hydrox/Simeth) 30 Ml Oral.susp 15 Ml PO PRN AFTMEALHC PRN Buspirone Hcl 10 Mg Tablet 10 Mg PO TID Baclofen 10 Mg Tablet 10 Mg PO QID Gabapentin 100 Mg Capsule 100 Mg PO QID Gabapentin 800 Mg Tablet 800 Mg PO QID Levothyroxine Sodium 50 Mcg Tablet 50 Mcg PO DAILYAC Klonopin (Clonazepam) 0.5 Mg Tablet 1 Mg PO BID Norvasc (Amlodipine Besylate) 10 Mg Tablet 10 Mg PO DAILY Oxybutynin Chloride 5 Mg Tablet 2.5 Mg PO BID Depakote Er (Divalproex Sodium) 500 Mg Tab.er.24h 1,500 Mg PO HS Klor-Con M20 (Potassium Chloride) 20 Meq Tab.er.prt 20 Meq PO DAILY Cymbalta (Duloxetine Hcl) 60 Mg Capsule.dr 60 Mg PO DAILY Multivitamin with Iron Tablet (Multivitamin/Iron/Folic Acid) 1 Each Tablet 1 Tab PO DAILY Flomax (Tamsulosin Hcl) 0.4 Mg Cap.er.24h 0.8 Mg PO DAILY Olanzapine 5 Mg Tablet 2.5 Mg PO PRN Q2HR PRN MDD 10mg/ 24 hrs Remeron (Mirtazapine) 15 Mg Tablet 7.5 Mg PO HS Bisacodyl 10 Mg Supp.rect 10 Mg RC PRN DAILY PRN Tylenol (Acetaminophen) 325 Mg Tablet 650 Mg PO PRN Q6HRS PRN I have reviewed the current psychotropics carefully including drug interactions. Risk benefit ratio favors no change other than as noted in my dictated progress note. Diagnosis: Problems: (1) Depression (2) Schizoaffective disorder (3) Anxiety disorder (4) Impulse control disorder (5) Schizophrenia, paranoid, chronic with acute exacerbation CATHY EMERY MD Aug 15, 2018 22:48
[2018-08-16 05:43] VITALS: BP 114/73
[2018-08-16] MEDS: LEVOTHYROXINE 50 MCG TABLET PO SCH (06:26)
--- NOTE | 2018-08-16 06:43 | RAD ---
AP chest. HISTORY: Low O2 saturations, short of air AP view was taken of the chest. Patient is rotated to the left. Heart is within normal limits in size. There are no confluent infiltrates. IMPRESSION: 1. No acute infiltrates. Electronically signed by: Gil Hampton MD (08/16/2018 6:39 AM) [facility]
[2018-08-16 06:59] LABS: BGAS PH 7.35 (7.35-7.46)
[2018-08-16 07:29] LABS: BASO % 1 % (0-3); EOS # 0.2 x10^3/uL (0.0-0.7); EOS % 2 % (0-3); HEMATOCRIT 41.5 % (39.0-53.0); HEMOGLOBIN 13.8 g/dL (13.0-17.5); LYMPH # 1.7 x10^3/uL (1.0-4.8); LYMPH % 23 % (24-48); MEAN CORPUSCULAR HEMOGLOBIN 29 pg (25-35); MEAN CORPUSCULAR HGB CONC 33 g/dL (31-37); MEAN CORPUSCULAR VOLUME 88 fL (79-100); MONO # 0.7 x10^3/uL (0.0-1.1); MONO % 9 % (0-9); NEUT # 4.9 x10^3uL (1.8-7.7); NEUT % 66 % (31-73); PLATELET COUNT 381 x10^3/uL (140-400); RED BLOOD COUNT 4.73 x10^6/uL (4.30-5.70); RED CELL DISTRIBUTION WIDTH 13.4 % (11.5-14.5); WHITE BLOOD COUNT 7.4 x10^3/uL (4.0-11.0)
[2018-08-16] MEDS: busPIRone 10 MG TABLET. PO SCH ×3 (07:39→19:22)
[2018-08-16] MEDS: amLODIPine BESYLATE 10 MG TABLET PO SCH (07:39)
[2018-08-16] MEDS: TAMSULOSIN 0.4 MG CAP.ER.24H. PO SCH (07:39)
[2018-08-16 07:40] LABS: ALBUMIN 2.8 g/dL (3.4-5.0); ALBUMIN/GLOBULIN RATIO 0.7 (1.0-1.7); CALCIUM 8.2 mg/dL (8.5-10.1); CREATININE 0.6 mg/dL (0.7-1.3); GFR 138.9; POTASSIUM 3.8 mmol/L (3.5-5.1); TOTAL BILIRUBIN 0.3 mg/dL (0.2-1.0); TOTAL PROTEIN 6.7 g/dL (6.4-8.2)
[2018-08-16] MEDS: POTASSIUM CHLORIDE 20 MEQ TABLET.ER. PO SCH (07:40)
[2018-08-16] MEDS: OXYBUTYNIN CHLORIDE 5 MG TABLET PO SCH ×2 (07:40→19:22)
[2018-08-16] MEDS: GABAPENTIN 300 MG CAPSULE. PO SCH ×4 (07:40→19:22)
[2018-08-16] MEDS: MULTIVITAMIN with MINERAL TABLET. PO SCH (07:40)
[2018-08-16] MEDS: clonazePAM 0.5 MG TABLET PO SCH (07:42)
[2018-08-16 16:08] VITALS: BP 124/83
[2018-08-16] MEDS ORDERED: IOHEXOL 300 MG/ML 75 ML VIAL. IV ONE (18:15)
[2018-08-16] MEDS: DIVALPROEX ER 500 MG TAB.ER.24H PO SCH (19:21)
[2018-08-16] MEDS: risperiDONE 0.5 MG TABLET. PO SCH (19:21)
[2018-08-16] MEDS: clonazePAM 1 MG TABLET PO SCH (19:26)
[2018-08-16] MEDS: cloZAPine 100 MG TABLET PO SCH (19:34)
--- NOTE | 2018-08-16 22:39 | PDOC ---
Exam Note: Nguyễn Note: Please also refer to the separate dictated note~for this date of service dictated separately.~Patient seen individually. Discussed the patient with Nursing staff reviewed the chart.~Reviewed interim history and current functioning. Reviewed vital signs,~Labs/ Radiology~and current medications noted below. Continue current treatment with the changes noted in the dictated addendum note Assessment: Vital Signs: Vital Signs Date Time Temp Pulse Resp B/P (MAP) Pulse Ox O2 Delivery O2 Flow Rate FiO2 08/16/18 16:08 97.4 86 20 124/83 (97) 97 08/15/18 06:07 Room Air I&O Intake and Output 08/16/18 07:01 Intake Total 1200 ml Balance 1200 ml Intake Oral 1200 ml # Bowel Movements 2 Labs: Laboratory Tests Test 08/16/18 06:40 08/16/18 07:15 Blood pH 7.35 (7.35-7.46) Blood Gas PCO2 46 mmHg (35-46) Blood Gas PO2 76 mmHg (80-100) L Blood Gas HCO3 25 mmol/L (21-28) Arterial Bld O2 Saturation (Calc) 94 % (92-99) FiO2 24 % White Blood Count 7.4 x10^3/uL (4.0-11.0) Red Blood Count 4.73 x10^6/uL (4.30-5.70) Hemoglobin 13.8 g/dL (13.0-17.5) Hematocrit 41.5 % (39.0-53.0) Mean Corpuscular Volume 88 fL (79-100) Mean Corpuscular Hemoglobin 29 pg (25-35) Mean Corpuscular Hemoglobin Concent 33 g/dL (31-37) Red Cell Distribution Width 13.4 % (11.5-14.5) Platelet Count 381 x10^3/uL (140-400) Neutrophils (%) (Auto) 66 % (31-73) Lymphocytes (%) (Auto) 23 % (24-48) L Monocytes (%) (Auto) 9 % (0-9) Eosinophils (%) (Auto) 2 % (0-3) Basophils (%) (Auto) 1 % (0-3) Neutrophils # (Auto) 4.9 x10^3uL (1.8-7.7) Lymphocytes # (Auto) 1.7 x10^3/uL (1.0-4.8) Monocytes # (Auto) 0.7 x10^3/uL (0.0-1.1) Eosinophils # (Auto) 0.2 x10^3/uL (0.0-0.7) Basophils # (Auto) 0.0 x10^3/uL (0.0-0.2) Sodium Level 138 mmol/L (136-145) Potassium Level 3.8 mmol/L (3.5-5.1) Chloride Level 101 mmol/L (98-107) Carbon Dioxide Level 28 mmol/L (21-32) Anion Gap 9 (6-14) Blood Urea Nitrogen 8 mg/dL (8-26) Creatinine 0.6 mg/dL (0.7-1.3) L Estimated GFR (Cockcroft-Gault) 138.9 BUN/Creatinine Ratio 13 (6-20) Glucose Level 137 mg/dL (70-99) H Lactic Acid Level 1.9 mmol/L (0.4-2.0) Calcium Level 8.2 mg/dL (8.5-10.1) L Total Bilirubin 0.3 mg/dL (0.2-1.0) Aspartate Amino Transferase (AST) 18 U/L (15-37) Alanine Aminotransferase (ALT) 22 U/L (16-63) Alkaline Phosphatase 64 U/L (46-116) QC-[id number]-Type Natriuretic Peptide 40 pg/mL (0-124) Total Protein 6.7 g/dL (6.4-8.2) Albumin 2.8 g/dL (3.4-5.0) L Albumin/Globulin Ratio 0.7 (1.0-1.7) L Current Medications: Meds: Current Medications Acetaminophen (Tylenol) 650 mg PRN Q6HRS PRN PO PAIN / TEMP Last administered on 07/09/18at 22:06; Start 06/21/18 at 20:15 Clonazepam (KlonoPIN) 1 mg BID PO Last administered on 08/14/18at 19:19; Start 06/21/18 at 21:00; Stop 08/14/18 at 21:25; Status DC Gabapentin (Neurontin) 900 mg QID PO Last administered on 07/08/18at 16:58; Start 06/21/18 at 21:00; Stop 07/08/18 at 17:47; Status DC Al Hydroxide/Mg Hydroxide (Mylanta Plus Xs) 15 ml PRN AFTMEALHC PRN PO GI SYMPTOMS; Start 06/21/18 at 20:15 Magnesium Hydroxide (Milk Of Magnesia) 400 mg PRN DAILY PRN PO CONSTIPATION Last administered on 08/12/18 19:23; Start 06/21/18 at 20:15 Multi-Ingredient Ointment (Analgesic [place]) 1 gerri PRN QID PRN TP MUSCLE PAIN; Start 06/21/18 at 20:15 Oxybutynin Chloride (Ditropan) 2.5 mg BID PO Last administered on 08/16/18 19: 22; Start 06/21/18 at 21:00 Potassium Chloride (Klor-Con) 20 meq DAILY PO Last administered on 08/16/18 07: 40; Start 06/22/18 at 09:00 Tamsulosin HCl (Flomax) 0.8 mg DAILY PO Last administered on 08/16/18 07:39; Start 06/22/18 at 09:00 Amlodipine Besylate (Norvasc) 10 mg DAILY PO Last administered on 08/16/18 07: 39; Start 06/22/18 at 09:00 Baclofen (Lioresal) 10 mg QID PO Last administered on 07/07/18at 19:36; Start 06/21/18 at 21:00; Stop 07/08/18 at 11:48; Status DC Bisacodyl (Dulcolax Supp) [address] [place] CONSTIPATION; Start 06/21/18 at 20:45 Buspirone HCl (Buspar) 10 mg TID PO Last administered on 08/16/18 19:22; Start 06/21/18 at 21:00 Divalproex Sodium (Depakote Er) 1,500 mg HS PO Last administered on 08/16/18 19 :21; Start 06/21/18 at 21:00 Non-Formulary Medication (Gabapentin ) 800 mg QID PO ; Start 06/21/18 at 21:00 ; Status UNV Levothyroxine Sodium (Synthroid) 50 mcg DAILY06 PO Last administered on 06:26; Start 06/22/18 at 06:00 Multivitamins/ Calcium (Thera-M Plus) 1 tab DAILY PO Last administered on 07:40; Start 06/22/18 at 09:00 Olanzapine (ZyPREXA ZYDIS) 2.5 mg PRN Q2HR PRN PO PSYCHOSIS Last administered on 08/10/18 20:19; Start 06/21/18 at 20:45 Olanzapine (ZyPREXA) 5 mg BID PO Last administered on 06/23/18at 08:47; Start 06/21/18 at 21:00; Stop 06/23/18 at 17:06; Status DC Risperidone (RisperDAL) 1.5 mg HS PO Last administered on 06/23/18at 19:45; Start 06/21/18 at 21:00; Stop 06/24/18 at 11:06; Status DC Trazodone HCl (Desyrel) 50 mg PRN QHS PRN PO INSOMNIA Last administered on 20:19; Start 06/21/18 at 21:00; Stop 08/10/18 at 21:07; Status DC Nicotine (Nicoderm Cq 7mg) 1 patch PRN DAILY PRN TD SMOKING CESSATION; Start 06/21/18 at 23:30; Stop 07/09/18 at 05:39; Status DC Vitamin D (Vitamin D3) 50,000 unit WEEKLY PO Last administered on 08/11/18 09: 19; Start 06/23/18 at 16:30 Olanzapine (ZyPREXA) 5 mg DAILY PO Last administered on 06/25/18at 08:04; Start 06/24/18 at 09:00; Stop 06/26/18 at 00:00; Status DC Risperidone (RisperDAL) 1.75 mg HS PO Last administered on 07/06/18at 20:08; Start 06/24/18 at 21:00; Stop 07/07/18 at 12:40; Status DC Risperidone (RisperDAL) 2 mg HS PO Last administered on 08/10/18 20:15; Start 07/07/18 at 21:00; Stop 08/10/18 at 21:07; Status DC Gabapentin (Neurontin) 600 mg QID PO Last administered on 08/16/18 19:22; Start 07/08/18 at 21:00 Nicotine (Nicoderm Cq 21mg) 1 patch DAILY TD Last administered on 07/30/18at 08 :54; Start 07/09/18 at 09:00; Stop 07/31/18 at 04:33; Status DC Clozapine (Clozaril) 25 mg DAILY PO Last administered on 07/27/18at 09:38; Start 07/13/18 at 09:00; Stop 07/27/18 at 16:52; Status DC Vitamin D (Vitamin D3) 50,000 unit WEEKLY PO ; Start 07/24/18 at 09:00; Status Cancel Clozapine (Clozaril) 50 mg DAILY PO Last administered on 08/03/18at 07:51; Start 07/28/18 at 09:00; Stop 08/03/18 at 21:09; Status DC Nicotine (Nicoderm Cq 21mg) 1 patch PRN DAILY PRN TD SMOKING CESSATION Last administered on 08/14/18at 10:40; Start 07/31/18 at 04:45 Clozapine (Clozaril) 75 mg HS PO Last administered on 08/08/18at 19:36; Start 08/04/18 at 21:00; Stop 08/09/18 at 17:33; Status DC Clozapine (Clozaril) 25 mg 1X ONCE PO Last administered on 08/03/18at 21:25; Start 08/03/18 at 21:30; Stop 08/03/18 at 21:31; Status DC Clozapine (Clozaril) 100 mg QHS PO Last administered on 08/15/18at 20:03; Start 08/09/18 at 21:00; Stop 08/16/18 at 16:48; Status DC Risperidone (RisperDAL) 1.5 mg HS PO Last administered on 08/16/18at 19:21; Start 08/11/18 at 21:00 Trazodone HCl (Desyrel) 50 mg QHS PO ; Start 08/11/18 at 21:00; Stop 08/11/18 at 21:00; Status DC Ondansetron HCl (Zofran Odt) 4 mg PRN Q8HRS PRN PO NAUSEA/VOMITING Last administered on 08/12/18at 11:11; Start 08/12/18 at 10:45; Stop 08/12/18 at 16:29; Status DC Ondansetron HCl (Zofran Odt) 4 mg PRN Q4HRS PRN PO NAUSEA/VOMITING Last administered on 08/13/18at 08:20; Start 08/12/18 at 16:30 Clonazepam (KlonoPIN) 0.75 mg DAILY PO Last administered on 08/16/18at 07:42; Start 08/15/18 at 09:00 Clonazepam (KlonoPIN) 1 mg HS PO Last administered on 08/16/18at 19:26; Start 08/15/18 at 21:00; Stop 08/16/18 at 21:00; Status DC Clonazepam (KlonoPIN) 0.75 mg HS PO ; Start 08/17/18 at 21:00 Clozapine (Clozaril) 125 mg QHS PO Last administered on 08/16/18at 19:34; Start 08/16/18 at 21:00 Iohexol (Omnipaque 300 Mg/ml) 75 ml 1X ONCE IV ; Start 08/16/18 at 18:15; Stop 08/16/18 at 18:16; Status DC Iohexol (Omnipaque 300 Mg/ml) 75 ml 1X ONCE IV ; Start 08/17/18 at 08:00; Stop 08/17/18 at 08:01 Active Scripts Active Reported Zyprexa (Olanzapine) 5 Mg Tablet 5 Mg PO BID NICODERM CQ 7mg (Nicotine) 1 Each Patch.td24 1 Patch TD PRN DAILY PRN Trazodone Hcl 50 Mg Tablet 50 Mg PO PRN QHS PRN Risperdal (Risperidone) 1 Mg Tablet 1.5 Mg PO HS Analgesic [place] (Methyl Salicylate/Menthol) 28 Gm Oint...g. 1 Gerri TP PRN QID PRN Milk Of Magnesia (Magnesium Hydroxide) 400 Mg/5 Ml Oral.susp 400 Mg PO PRN DAILY PRN Mag-Al Plus Xs Suspension (Mag Hydrox/Al Hydrox/Simeth) 30 Ml Oral.susp 15 Ml PO PRN AFTMEALHC PRN Buspirone Hcl 10 Mg Tablet 10 Mg PO TID Baclofen 10 Mg Tablet 10 Mg PO QID Gabapentin 100 Mg Capsule 100 Mg PO QID Gabapentin 800 Mg Tablet 800 Mg PO QID Levothyroxine Sodium 50 Mcg Tablet 50 Mcg PO DAILYAC Klonopin (Clonazepam) 0.5 Mg Tablet 1 Mg PO BID Norvasc (Amlodipine Besylate) 10 Mg Tablet 10 Mg PO DAILY Oxybutynin Chloride 5 Mg Tablet 2.5 Mg PO BID Depakote Er (Divalproex Sodium) 500 Mg Tab.er.24h 1,500 Mg PO HS Klor-Con M20 (Potassium Chloride) 20 Meq Tab.er.prt 20 Meq PO DAILY Cymbalta (Duloxetine Hcl) 60 Mg Capsule.dr 60 Mg PO DAILY Multivitamin with Iron Tablet (Multivitamin/Iron/Folic Acid) 1 Each Tablet 1 Tab PO DAILY Flomax (Tamsulosin Hcl) 0.4 Mg Cap.er.24h 0.8 Mg PO DAILY Olanzapine 5 Mg Tablet 2.5 Mg PO PRN Q2HR PRN MDD 10mg/ 24 hrs Remeron (Mirtazapine) 15 Mg Tablet 7.5 Mg PO HS Bisacodyl 10 Mg Supp.rect 10 Mg RC PRN DAILY PRN Tylenol (Acetaminophen) 325 Mg Tablet 650 Mg PO PRN Q6HRS PRN I have reviewed the current psychotropics carefully including drug interactions. Risk benefit ratio favors no change other than as noted in my dictated progress note. Diagnosis: Problems: (1) Depression (2) Schizoaffective disorder (3) Anxiety disorder (4) Impulse control disorder (5) Schizophrenia, paranoid, chronic with acute exacerbation CATHY EMERY MD Aug 16, 2018 22:39
--- NOTE | 2018-08-17 02:59 | PN ---
DATE: 08/15/2018 PSYCHIATRIC PROGRESS NOTE This late entry 08/15/2018 covers elements, not covered in my initial note. SUBJECTIVE: I met with the patient in the evening. The patient slept 6 hours previous night. He remains somewhat withdrawn, paranoid at times, but less so than before. REVIEW OF SYSTEMS: Ambulation impaired with walker. No CV, , pulmonary, eye, ENT system symptoms on review. I met with him in his room at length. MENTAL STATUS EXAM: Oriented to himself and situation. Speech is coherent, abstraction fair, computation impaired, language function intact, attention span short. Mood and affect still somewhat withdrawn. No clear suicidal or homicidal ideation. LABORATORY DATA: Reviewed. IMPRESSION: Unchanged from initial note. PLAN: No change from initial note. MAN Ty EMERY MD DR: SARINA/nilda JOB#: [id number] / [id number]
[2018-08-17 05:39] VITALS: BP 141/84
[2018-08-17] MEDS: LEVOTHYROXINE 50 MCG TABLET PO SCH (06:12)
[2018-08-17] MEDS: TAMSULOSIN 0.4 MG CAP.ER.24H. PO SCH (07:55)
[2018-08-17] MEDS: MULTIVITAMIN with MINERAL TABLET. PO SCH (07:55)
[2018-08-17] MEDS: busPIRone 10 MG TABLET. PO SCH ×3 (07:55→20:51)
[2018-08-17] MEDS: OXYBUTYNIN CHLORIDE 5 MG TABLET PO SCH ×2 (07:56→20:52)
[2018-08-17] MEDS: amLODIPine BESYLATE 10 MG TABLET PO SCH (07:56)
[2018-08-17] MEDS: POTASSIUM CHLORIDE 20 MEQ TABLET.ER. PO SCH (07:57)
[2018-08-17] MEDS ORDERED: IOHEXOL 300 MG/ML 75 ML VIAL. IV ONE ×2 (08:00→09:00)
[2018-08-17] MEDS: clonazePAM 0.5 MG TABLET PO SCH ×2 (08:01→21:00)
[2018-08-17] MEDS: GABAPENTIN 300 MG CAPSULE. PO SCH ×4 (08:01→20:51)
--- NOTE | 2018-08-17 10:47 | RAD ---
Chest CTA History: Hypoxia Technique: After bolus of intravenous contrast, CT imaging was performed of the chest. Multiplanar reconstruction images to include MIP reconstruction images are submitted. Exposure: One or more of the following individualized dose reduction techniques were utilized for this examination: 1. Automated exposure control 2. Adjustment of the mA and/or kV according to patient size 3. Use of iterative reconstruction technique. Comparison: There is no previous CT exam available Findings: [ ] No pulmonary embolism is identified There is emphysema with upper zone predominance. There is linear atelectasis of the lower lobes bilaterally greater on the right. There is small 4 mm superior left lower lobe nodule axial image 29 series 3. Small 5 mm noncalcified left lower lobe nodule axial image 63 is possible. There is no significant pleural fluid. There is small quantity of pericardial fluid. There is no pneumothorax. Thoracic aortic caliber is within normal limits without intraluminal flap. No significantly enlarged nodes are identified of the chest, some small mediastinal nodes. Impression: 1. No pulmonary embolism is identified. There is emphysema. There is mild atelectasis bilaterally. 2. There are a couple of small left lower lobe pulmonary nodules, largest about 5 mm. If there are increased risk factors for neoplasm, optional 12 month follow-up could be performed as per revised Fleischner guidelines, no additional follow-up if low risk factors. Electronically signed by: Dilshad Alamo MD (08/17/2018 10:43 AM) [id number]
[2018-08-17] MEDS: NICOTINE 21MG PATCH. TD PRN (13:02)
[2018-08-17 15:48] VITALS: BP 120/81
[2018-08-17] MEDS: DIVALPROEX ER 500 MG TAB.ER.24H PO SCH (20:51)
[2018-08-17] MEDS: cloZAPine 100 MG TABLET PO SCH (21:00)
[2018-08-17] MEDS: risperiDONE 1 MG TABLET. PO SCH (21:00)
--- NOTE | 2018-08-17 22:59 | PDOC ---
Exam Note: Nguyễn Note: Please also refer to the separate dictated note~for this date of service dictated separately.~Patient seen individually. Discussed the patient with Nursing staff reviewed the chart.~Reviewed interim history and current functioning. Reviewed vital signs,~Labs/ Radiology~and current medications noted below. Continue current treatment with the changes noted in the dictated addendum note Assessment: Vital Signs: Vital Signs Date Time Temp Pulse Resp B/P (MAP) Pulse Ox O2 Delivery O2 Flow Rate FiO2 08/17/18 15:48 99.2 99 18 120/81 (94) 96 08/15/18 06:07 Room Air I&O Intake and Output 08/17/18 07:01 Intake Total 1680 ml Balance 1680 ml Intake Oral 1680 ml Current Medications: Meds: Current Medications Acetaminophen (Tylenol) 650 mg PRN Q6HRS PRN PO PAIN / TEMP Last administered on 07/09/18at 22:06; Start 06/21/18 at 20:15 Clonazepam (KlonoPIN) 1 mg BID PO Last administered on 08/14/18 19:19; Start 06/21/18 at 21:00; Stop 08/14/18 at 21:25; Status DC Gabapentin (Neurontin) 900 mg QID PO Last administered on 07/08/18at 16:58; Start 06/21/18 at 21:00; Stop 07/08/18 at 17:47; Status DC Al Hydroxide/Mg Hydroxide (Mylanta Plus Xs) 15 ml PRN AFTMEALHC PRN PO GI SYMPTOMS; Start 06/21/18 at 20:15 Magnesium Hydroxide (Milk Of Magnesia) 400 mg PRN DAILY PRN PO CONSTIPATION Last administered on 08/12/18 19:23; Start 06/21/18 at 20:15 Multi-Ingredient Ointment (Analgesic Sharps) 1 gerri PRN QID PRN TP MUSCLE PAIN; Start 06/21/18 at 20:15 Oxybutynin Chloride (Ditropan) 2.5 mg BID PO Last administered on 08/17/18 20: 52; Start 06/21/18 at 21:00 Potassium Chloride (Klor-Con) 20 meq DAILY PO Last administered on 08/17/18 07: 57; Start 06/22/18 at 09:00 Tamsulosin HCl (Flomax) 0.8 mg DAILY PO Last administered on 08/17/18 07:55; Start 06/22/18 at 09:00 Amlodipine Besylate (Norvasc) 10 mg DAILY PO Last administered on 08/17/18 07: 56; Start 06/22/18 at 09:00 Baclofen (Lioresal) 10 mg QID PO Last administered on 07/07/18 19:36; Start 06/21/18 at 21:00; Stop 07/08/18 at 11:48; Status DC Bisacodyl (Dulcolax Supp) 10 mg PRN DAILY PRN [place] CONSTIPATION; Start 06/21/18 at 20:45 Buspirone HCl (Buspar) 10 mg TID PO Last administered on 08/17/18 20:51; Start 06/21/18 at 21:00 Divalproex Sodium (Depakote Er) 1,500 mg HS PO Last administered on 08/17/18 20 :51; Start 06/21/18 at 21:00 Non-Formulary Medication (Gabapentin ) 800 mg QID PO ; Start 06/21/18 at 21:00 ; Status UNV Levothyroxine Sodium (Synthroid) 50 mcg DAILY06 PO Last administered on 06:12; Start 06/22/18 at 06:00 Multivitamins/ Calcium (Thera-M Plus) 1 tab DAILY PO Last administered on 07:55; Start 06/22/18 at 09:00 Olanzapine (ZyPREXA ZYDIS) 2.5 mg PRN Q2HR PRN PO PSYCHOSIS Last administered on 08/10/18 20:19; Start 06/21/18 at 20:45 Olanzapine (ZyPREXA) 5 mg BID PO Last administered on 06/23/18 08:47; Start 06/21/18 at 21:00; Stop 06/23/18 at 17:06; Status DC Risperidone (RisperDAL) 1.5 mg HS PO Last administered on 06/23/18 19:45; Start 06/21/18 at 21:00; Stop 06/24/18 at 11:06; Status DC Trazodone HCl (Desyrel) 50 mg PRN QHS PRN PO INSOMNIA Last administered on 20:19; Start 06/21/18 at 21:00; Stop 08/10/18 at 21:07; Status DC Nicotine (Nicoderm Cq 7mg) 1 patch PRN DAILY PRN TD SMOKING CESSATION; Start 06/21/18 at 23:30; Stop 07/09/18 at 05:39; Status DC Vitamin D (Vitamin D3) 50,000 unit WEEKLY PO Last administered on 08/11/18at 09: 19; Start 06/23/18 at 16:30 Olanzapine (ZyPREXA) 5 mg DAILY PO Last administered on 06/25/18at 08:04; Start 06/24/18 at 09:00; Stop 06/26/18 at 00:00; Status DC Risperidone (RisperDAL) 1.75 mg HS PO Last administered on 07/06/18at 20:08; Start 06/24/18 at 21:00; Stop 07/07/18 at 12:40; Status DC Risperidone (RisperDAL) 2 mg HS PO Last administered on 08/10/18at 20:15; Start 07/07/18 at 21:00; Stop 08/10/18 at 21:07; Status DC Gabapentin (Neurontin) 600 mg QID PO Last administered on 08/17/18at 20:51; Start 07/08/18 at 21:00 Nicotine (Nicoderm Cq 21mg) 1 patch DAILY TD Last administered on 07/30/18at 08 :54; Start 07/09/18 at 09:00; Stop 07/31/18 at 04:33; Status DC Clozapine (Clozaril) 25 mg DAILY PO Last administered on 07/27/18at 09:38; Start 07/13/18 at 09:00; Stop 07/27/18 at 16:52; Status DC Vitamin D (Vitamin D3) 50,000 unit WEEKLY PO ; Start 07/24/18 at 09:00; Status Cancel Clozapine (Clozaril) 50 mg DAILY PO Last administered on 08/03/18at 07:51; Start 07/28/18 at 09:00; Stop 08/03/18 at 21:09; Status DC Nicotine (Nicoderm Cq 21mg) 1 patch PRN DAILY PRN TD SMOKING CESSATION Last administered on 08/17/18at 13:02; Start 07/31/18 at 04:45 Clozapine (Clozaril) 75 mg HS PO Last administered on 08/08/18at 19:36; Start 08/04/18 at 21:00; Stop 08/09/18 at 17:33; Status DC Clozapine (Clozaril) 25 mg 1X ONCE PO Last administered on 08/03/18at 21:25; Start 08/03/18 at 21:30; Stop 08/03/18 at 21:31; Status DC Clozapine (Clozaril) 100 mg QHS PO Last administered on 08/15/18at 20:03; Start 08/09/18 at 21:00; Stop 08/16/18 at 16:48; Status DC Risperidone (RisperDAL) 1.5 mg HS PO Last administered on 08/16/18 19:21; Start 08/11/18 at 21:00; Stop 08/17/18 at 16:27; Status DC Trazodone HCl (Desyrel) 50 mg QHS PO ; Start 08/11/18 at 21:00; Stop 08/11/18 at 21:00; Status DC Ondansetron HCl (Zofran Odt) 4 mg PRN Q8HRS PRN PO NAUSEA/VOMITING Last administered on 08/12/18at 11:11; Start 08/12/18 at 10:45; Stop 08/12/18 at 16:29; Status DC Ondansetron HCl (Zofran Odt) 4 mg PRN Q4HRS PRN PO NAUSEA/VOMITING Last administered on 08/13/18 08:20; Start 08/12/18 at 16:30 Clonazepam (KlonoPIN) 0.75 mg DAILY PO Last administered on 08/17/18at 08:01; Start 08/15/18 at 09:00 Clonazepam (KlonoPIN) 1 mg HS PO Last administered on 08/16/18 19:26; Start 08/15/18 at 21:00; Stop 08/16/18 at 21:00; Status DC Clonazepam (KlonoPIN) 0.75 mg HS PO Last administered on 08/17/18 21:00; Start 08/17/18 at 21:00 Clozapine (Clozaril) 125 mg QHS PO Last administered on 08/17/18 21:00; Start 08/16/18 at 21:00 Iohexol (Omnipaque 300 Mg/ml) 75 ml 1X ONCE IV ; Start 08/16/18 at 18:15; Stop 08/16/18 at 18:16; Status DC Iohexol (Omnipaque 300 Mg/ml) 75 ml 1X ONCE IV Last administered on 08/17/18at 09:12; Start 08/17/18 at 08:00; Stop 08/17/18 at 08:01; Status DC Iohexol (Omnipaque 300 Mg/ml) 75 ml 1X ONCE IV ; Start 08/17/18 at 09:00; Stop 08/17/18 at 09:02; Status DC Risperidone (RisperDAL) 1 mg QHS PO Last administered on 08/17/18at 21:00; Start 08/17/18 at 21:00 Active Scripts Active Reported Zyprexa (Olanzapine) 5 Mg Tablet 5 Mg PO BID NICODERM CQ 7mg (Nicotine) 1 Each Patch.td24 1 Patch TD PRN DAILY PRN Trazodone Hcl 50 Mg Tablet 50 Mg PO PRN QHS PRN Risperdal (Risperidone) 1 Mg Tablet 1.5 Mg PO HS Analgesic Sharps (Methyl Salicylate/Menthol) 28 Gm Oint...g. 1 Gerri TP PRN QID PRN Milk Of Magnesia (Magnesium Hydroxide) 400 Mg/5 Ml Oral.susp 400 Mg PO PRN DAILY PRN Mag-Al Plus Xs Suspension (Mag Hydrox/Al Hydrox/Simeth) 30 Ml Oral.susp 15 Ml PO PRN AFTMEALHC PRN Buspirone Hcl 10 Mg Tablet 10 Mg PO TID Baclofen 10 Mg Tablet 10 Mg PO QID Gabapentin 100 Mg Capsule 100 Mg PO QID Gabapentin 800 Mg Tablet 800 Mg PO QID Levothyroxine Sodium 50 Mcg Tablet 50 Mcg PO DAILYAC Klonopin (Clonazepam) 0.5 Mg Tablet 1 Mg PO BID Norvasc (Amlodipine Besylate) 10 Mg Tablet 10 Mg PO DAILY Oxybutynin Chloride 5 Mg Tablet 2.5 Mg PO BID Depakote Er (Divalproex Sodium) 500 Mg Tab.er.24h 1,500 Mg PO HS Klor-Con M20 (Potassium Chloride) 20 Meq Tab.er.prt 20 Meq PO DAILY Cymbalta (Duloxetine Hcl) 60 Mg Capsule.dr 60 Mg PO DAILY Multivitamin with Iron Tablet (Multivitamin/Iron/Folic Acid) 1 Each Tablet 1 Tab PO DAILY Flomax (Tamsulosin Hcl) 0.4 Mg Cap.er.24h 0.8 Mg PO DAILY Olanzapine 5 Mg Tablet 2.5 Mg PO PRN Q2HR PRN MDD 10mg/ 24 hrs Remeron (Mirtazapine) 15 Mg Tablet 7.5 Mg PO HS Bisacodyl 10 Mg Supp.rect 10 Mg RC PRN DAILY PRN Tylenol (Acetaminophen) 325 Mg Tablet 650 Mg PO PRN Q6HRS PRN I have reviewed the current psychotropics carefully including drug interactions. Risk benefit ratio favors no change other than as noted in my dictated progress note. Diagnosis: Problems: (1) Depression (2) Schizoaffective disorder (3) Anxiety disorder (4) Impulse control disorder (5) Schizophrenia, paranoid, chronic with acute exacerbation CATHY EMERY MD Aug 17, 2018 22:59
[2018-08-18] MEDS: LEVOTHYROXINE 50 MCG TABLET PO SCH (05:44)
--- NOTE | 2018-08-18 05:53 | PN ---
DATE: 08/16/2018 PSYCHIATRIC PROGRESS NOTE This is late entry 08/16/2018 covers elements not covered in my initial note. SUBJECTIVE: I met with the patient in the evening. The patient slept 7-3/4 hours previous night. Absolute neutrophil count on 08/16/2018 is 4884. He is currently on Clozaril 100 mg daily and we will increase to 125 mg daily. REVIEW OF SYSTEMS: Ambulation impaired with walker. No CV, , pulmonary, eye, ENT system symptoms on review. MENTAL STATUS EXAM: Reasonably oriented. Speech is coherent, has some latency. Abstraction fair, computation impaired, language function intact, attention span short. Mood and affect remains somewhat withdrawn, but less psychotic. LABORATORY DATA: Reviewed. IMPRESSION: Schizoaffective disorder, bipolar type, mixed with psychotic features; anxiety disorder, unspecified; impulse control disorder, unspecified; valproic acid level is therapeutic at 66. PLAN: Continue current psychotropics with the increase of Clozaril and starting in a day or so, we will reduce Risperdal further. MAN Ty EMERY MD DR: SARINA/nilda JOB#: [id number] / [id number]
[2018-08-18 05:57] VITALS: BP 121/82
[2018-08-18] MEDS: busPIRone 10 MG TABLET. PO SCH ×3 (09:05→20:52)
[2018-08-18] MEDS: clonazePAM 0.5 MG TABLET PO SCH ×2 (09:05→20:56)
[2018-08-18] MEDS: GABAPENTIN 300 MG CAPSULE. PO SCH ×4 (09:06→20:57)
[2018-08-18] MEDS: POTASSIUM CHLORIDE 20 MEQ TABLET.ER. PO SCH (09:06)
[2018-08-18] MEDS: amLODIPine BESYLATE 10 MG TABLET PO SCH (09:06)
[2018-08-18] MEDS: OXYBUTYNIN CHLORIDE 5 MG TABLET PO SCH ×2 (09:06→20:53)
[2018-08-18] MEDS: MULTIVITAMIN with MINERAL TABLET. PO SCH (09:07)
[2018-08-18] MEDS: TAMSULOSIN 0.4 MG CAP.ER.24H. PO SCH (09:07)
[2018-08-18] MEDS: CHOLECALCIFEROL (VITAMIN D3) 50,000 UNIT CAPSULE PO SCH (09:09)
[2018-08-18 16:23] VITALS: BP 123/87
--- NOTE | 2018-08-18 19:04 | PN ---
DATE: PSYCHIATRIC PROGRESS NOTE This late entry 08/17/2018 covers elements not covered in my initial note. SUBJECTIVE: I met with the patient in the evening in his room and then he wanted to meet with me again, met with him in the hallway. He did well previous night and most of the day today. He is having a wet sounding chest and CT is being done per Dr. Rios which shows nodules. I will defer to Dr. Rios. REVIEW OF SYSTEMS: Ambulation impaired with walker. No CV, , pulmonary, eye, ENT system symptoms on review. MENTAL STATUS EXAM: Reasonably oriented. Speech is coherent, has some latency. Abstraction fair, computation impaired, language function intact, attention span short. Mood and affect somewhat withdrawn. He appears much less psychotic. LABORATORY DATA: Reviewed. IMPRESSION: Schizoaffective disorder, bipolar type, mixed with psychotic features, in partial remission; anxiety disorder, unspecified. Rest as above. PLAN: The patient's Clozaril has been increased gradually to 125 mg at bedtime. We will now reduce the Risperdal from 1.5 mg at bedtime down to 1 mg at bedtime. Continue rest unchanged per the initial note. MAN Ty EMERY MD DR: SARINA/nilda JOB#: [id number] / [id number]
[2018-08-18] MEDS: cloZAPine 100 MG TABLET PO SCH (20:52)
[2018-08-18] MEDS: DIVALPROEX ER 500 MG TAB.ER.24H PO SCH (20:52)
[2018-08-18] MEDS: risperiDONE 1 MG TABLET. PO SCH (20:52)
--- NOTE | 2018-08-18 22:48 | PDOC ---
Exam Note: Nguyễn Note: Please also refer to the separate dictated note~for this date of service dictated separately.~Patient seen individually. Discussed the patient with Nursing staff reviewed the chart.~Reviewed interim history and current functioning. Reviewed vital signs,~Labs/ Radiology~and current medications noted below. Continue current treatment with the changes noted in the dictated addendum note Assessment: Vital Signs: Vital Signs Date Time Temp Pulse Resp B/P (MAP) Pulse Ox O2 Delivery O2 Flow Rate FiO2 08/18/18 16:23 99.2 94 20 123/87 (99) 96 08/15/18 06:07 Room Air I&O Intake and Output 08/18/18 07:01 Intake Total 1560 ml Balance 1560 ml Intake Oral 1560 ml Current Medications: Meds: Current Medications Acetaminophen (Tylenol) 650 mg PRN Q6HRS PRN PO PAIN / TEMP Last administered on 07/09/18at 22:06; Start 06/21/18 at 20:15 Clonazepam (KlonoPIN) 1 mg BID PO Last administered on 08/14/18 19:19; Start 06/21/18 at 21:00; Stop 08/14/18 at 21:25; Status DC Gabapentin (Neurontin) 900 mg QID PO Last administered on 07/08/18 16:58; Start 06/21/18 at 21:00; Stop 07/08/18 at 17:47; Status DC Al Hydroxide/Mg Hydroxide (Mylanta Plus Xs) 15 ml PRN AFTMEALHC PRN PO GI SYMPTOMS; Start 06/21/18 at 20:15 Magnesium Hydroxide (Milk Of Magnesia) 400 mg PRN DAILY PRN PO CONSTIPATION Last administered on 08/12/18 19:23; Start 06/21/18 at 20:15 Multi-Ingredient Ointment (Analgesic Blaine) 1 gerri PRN QID PRN TP MUSCLE PAIN; Start 06/21/18 at 20:15 Oxybutynin Chloride (Ditropan) 2.5 mg BID PO Last administered on 08/18/18at 20: 53; Start 06/21/18 at 21:00 Potassium Chloride (Klor-Con) 20 meq DAILY PO Last administered on 08/18/18 09: 06; Start 06/22/18 at 09:00 Tamsulosin HCl (Flomax) 0.8 mg DAILY PO Last administered on 08/18/18 09:07; Start 06/22/18 at 09:00 Amlodipine Besylate (Norvasc) 10 mg DAILY PO Last administered on 08/18/18 09: 06; Start 06/22/18 at 09:00 Baclofen (Lioresal) 10 mg QID PO Last administered on 07/07/18 19:36; Start 06/21/18 at 21:00; Stop 07/08/18 at 11:48; Status DC Bisacodyl (Dulcolax Supp) 10 mg PRN DAILY PRN [place] CONSTIPATION; Start 06/21/18 at 20:45 Buspirone HCl (Buspar) 10 mg TID PO Last administered on 08/18/18 20:52; Start 06/21/18 at 21:00 Divalproex Sodium (Depakote Er) 1,500 mg HS PO Last administered on 08/18/18 20 :52; Start 06/21/18 at 21:00 Non-Formulary Medication (Gabapentin ) 800 mg QID PO ; Start 06/21/18 at 21:00 ; Status UNV Levothyroxine Sodium (Synthroid) 50 mcg DAILY06 PO Last administered on 05:44; Start 06/22/18 at 06:00 Multivitamins/ Calcium (Thera-M Plus) 1 tab DAILY PO Last administered on 09:07; Start 06/22/18 at 09:00 Olanzapine (ZyPREXA ZYDIS) 2.5 mg PRN Q2HR PRN PO PSYCHOSIS Last administered on 08/10/18 20:19; Start 06/21/18 at 20:45 Olanzapine (ZyPREXA) 5 mg BID PO Last administered on 06/23/18 08:47; Start 06/21/18 at 21:00; Stop 06/23/18 at 17:06; Status DC Risperidone (RisperDAL) 1.5 mg HS PO Last administered on 06/23/18 19:45; Start 06/21/18 at 21:00; Stop 06/24/18 at 11:06; Status DC Trazodone HCl (Desyrel) 50 mg PRN QHS PRN PO INSOMNIA Last administered on 20:19; Start 06/21/18 at 21:00; Stop 08/10/18 at 21:07; Status DC Nicotine (Nicoderm Cq 7mg) 1 patch PRN DAILY PRN TD SMOKING CESSATION; Start 06/21/18 at 23:30; Stop 07/09/18 at 05:39; Status DC Vitamin D (Vitamin D3) 50,000 unit WEEKLY PO Last administered on 08/18/18at 09: 09; Start 06/23/18 at 16:30 Olanzapine (ZyPREXA) 5 mg DAILY PO Last administered on 06/25/18at 08:04; Start 06/24/18 at 09:00; Stop 06/26/18 at 00:00; Status DC Risperidone (RisperDAL) 1.75 mg HS PO Last administered on 07/06/18at 20:08; Start 06/24/18 at 21:00; Stop 07/07/18 at 12:40; Status DC Risperidone (RisperDAL) 2 mg HS PO Last administered on 08/10/18at 20:15; Start 07/07/18 at 21:00; Stop 08/10/18 at 21:07; Status DC Gabapentin (Neurontin) 600 mg QID PO Last administered on 08/18/18at 20:57; Start 07/08/18 at 21:00 Nicotine (Nicoderm Cq 21mg) 1 patch DAILY TD Last administered on 07/30/18at 08 :54; Start 07/09/18 at 09:00; Stop 07/31/18 at 04:33; Status DC Clozapine (Clozaril) 25 mg DAILY PO Last administered on 07/27/18at 09:38; Start 07/13/18 at 09:00; Stop 07/27/18 at 16:52; Status DC Vitamin D (Vitamin D3) 50,000 unit WEEKLY PO ; Start 07/24/18 at 09:00; Status Cancel Clozapine (Clozaril) 50 mg DAILY PO Last administered on 08/03/18at 07:51; Start 07/28/18 at 09:00; Stop 08/03/18 at 21:09; Status DC Nicotine (Nicoderm Cq 21mg) 1 patch PRN DAILY PRN TD SMOKING CESSATION Last administered on 08/17/18at 13:02; Start 07/31/18 at 04:45 Clozapine (Clozaril) 75 mg HS PO Last administered on 08/08/18at 19:36; Start 08/04/18 at 21:00; Stop 08/09/18 at 17:33; Status DC Clozapine (Clozaril) 25 mg 1X ONCE PO Last administered on 08/03/18at 21:25; Start 08/03/18 at 21:30; Stop 08/03/18 at 21:31; Status DC Clozapine (Clozaril) 100 mg QHS PO Last administered on 08/15/18at 20:03; Start 08/09/18 at 21:00; Stop 08/16/18 at 16:48; Status DC Risperidone (RisperDAL) 1.5 mg HS PO Last administered on 08/16/18 19:21; Start 08/11/18 at 21:00; Stop 08/17/18 at 16:27; Status DC Trazodone HCl (Desyrel) 50 mg QHS PO ; Start 08/11/18 at 21:00; Stop 08/11/18 at 21:00; Status DC Ondansetron HCl (Zofran Odt) 4 mg PRN Q8HRS PRN PO NAUSEA/VOMITING Last administered on 08/12/18 11:11; Start 08/12/18 at 10:45; Stop 08/12/18 at 16:29; Status DC Ondansetron HCl (Zofran Odt) 4 mg PRN Q4HRS PRN PO NAUSEA/VOMITING Last administered on 08/13/18 08:20; Start 08/12/18 at 16:30 Clonazepam (KlonoPIN) 0.75 mg DAILY PO Last administered on 08/18/18at 09:05; Start 08/15/18 at 09:00 Clonazepam (KlonoPIN) 1 mg HS PO Last administered on 08/16/18 19:26; Start 08/15/18 at 21:00; Stop 08/16/18 at 21:00; Status DC Clonazepam (KlonoPIN) 0.75 mg HS PO Last administered on 08/18/18 20:56; Start 08/17/18 at 21:00 Clozapine (Clozaril) 125 mg QHS PO Last administered on 08/18/18 20:52; Start 08/16/18 at 21:00 Iohexol (Omnipaque 300 Mg/ml) 75 ml 1X ONCE IV ; Start 08/16/18 at 18:15; Stop 08/16/18 at 18:16; Status DC Iohexol (Omnipaque 300 Mg/ml) 75 ml 1X ONCE IV Last administered on 08/17/18at 09:12; Start 08/17/18 at 08:00; Stop 08/17/18 at 08:01; Status DC Iohexol (Omnipaque 300 Mg/ml) 75 ml 1X ONCE IV ; Start 08/17/18 at 09:00; Stop 08/17/18 at 09:02; Status DC Risperidone (RisperDAL) 1 mg QHS PO Last administered on 08/18/18at 20:52; Start 08/17/18 at 21:00 Active Scripts Active Reported Zyprexa (Olanzapine) 5 Mg Tablet 5 Mg PO BID NICODERM CQ 7mg (Nicotine) 1 Each Patch.td24 1 Patch TD PRN DAILY PRN Trazodone Hcl 50 Mg Tablet 50 Mg PO PRN QHS PRN Risperdal (Risperidone) 1 Mg Tablet 1.5 Mg PO HS Analgesic Blaine (Methyl Salicylate/Menthol) 28 Gm Oint...g. 1 Gerri TP PRN QID PRN Milk Of Magnesia (Magnesium Hydroxide) 400 Mg/5 Ml Oral.susp 400 Mg PO PRN DAILY PRN Mag-Al Plus Xs Suspension (Mag Hydrox/Al Hydrox/Simeth) 30 Ml Oral.susp 15 Ml PO PRN AFTMEALHC PRN Buspirone Hcl 10 Mg Tablet 10 Mg PO TID Baclofen 10 Mg Tablet 10 Mg PO QID Gabapentin 100 Mg Capsule 100 Mg PO QID Gabapentin 800 Mg Tablet 800 Mg PO QID Levothyroxine Sodium 50 Mcg Tablet 50 Mcg PO DAILYAC Klonopin (Clonazepam) 0.5 Mg Tablet 1 Mg PO BID Norvasc (Amlodipine Besylate) 10 Mg Tablet 10 Mg PO DAILY Oxybutynin Chloride 5 Mg Tablet 2.5 Mg PO BID Depakote Er (Divalproex Sodium) 500 Mg Tab.er.24h 1,500 Mg PO HS Klor-Con M20 (Potassium Chloride) 20 Meq Tab.er.prt 20 Meq PO DAILY Cymbalta (Duloxetine Hcl) 60 Mg Capsule.dr 60 Mg PO DAILY Multivitamin with Iron Tablet (Multivitamin/Iron/Folic Acid) 1 Each Tablet 1 Tab PO DAILY Flomax (Tamsulosin Hcl) 0.4 Mg Cap.er.24h 0.8 Mg PO DAILY Olanzapine 5 Mg Tablet 2.5 Mg PO PRN Q2HR PRN MDD 10mg/ 24 hrs Remeron (Mirtazapine) 15 Mg Tablet 7.5 Mg PO HS Bisacodyl 10 Mg Supp.rect 10 Mg RC PRN DAILY PRN Tylenol (Acetaminophen) 325 Mg Tablet 650 Mg PO PRN Q6HRS PRN I have reviewed the current psychotropics carefully including drug interactions. Risk benefit ratio favors no change other than as noted in my dictated progress note. Diagnosis: Problems: (1) Depression (2) Schizoaffective disorder (3) Anxiety disorder (4) Impulse control disorder (5) Schizophrenia, paranoid, chronic with acute exacerbation CATHY EMERY MD Aug 18, 2018 22:48
[2018-08-19 05:55] VITALS: BP 138/86
[2018-08-19] MEDS: LEVOTHYROXINE 50 MCG TABLET PO SCH (05:58)
[2018-08-19] MEDS: GABAPENTIN 300 MG CAPSULE. PO SCH ×4 (08:07→21:29)
[2018-08-19] MEDS: TAMSULOSIN 0.4 MG CAP.ER.24H. PO SCH (08:07)
[2018-08-19] MEDS: POTASSIUM CHLORIDE 20 MEQ TABLET.ER. PO SCH (08:07)
[2018-08-19] MEDS: MULTIVITAMIN with MINERAL TABLET. PO SCH (08:07)
[2018-08-19] MEDS: busPIRone 10 MG TABLET. PO SCH ×3 (08:07→20:03)
[2018-08-19] MEDS: amLODIPine BESYLATE 10 MG TABLET PO SCH (08:08)
[2018-08-19] MEDS: OXYBUTYNIN CHLORIDE 5 MG TABLET PO SCH ×2 (08:08→20:03)
[2018-08-19] MEDS: clonazePAM 0.5 MG TABLET PO SCH ×2 (08:12→20:04)
[2018-08-19] MEDS: NICOTINE 21MG PATCH. TD PRN (09:20)
[2018-08-19 15:58] VITALS: BP 128/81
[2018-08-19] MEDS: cloZAPine 100 MG TABLET PO SCH (20:03)
[2018-08-19] MEDS: risperiDONE 1 MG TABLET. PO SCH (20:03)
[2018-08-19] MEDS: DIVALPROEX ER 500 MG TAB.ER.24H PO SCH (20:03)
--- NOTE | 2018-08-19 22:57 | PDOC ---
Exam Note: Nguyễn Note: Please also refer to the separate dictated note~for this date of service dictated separately.~Patient seen individually. Discussed the patient with Nursing staff reviewed the chart.~Reviewed interim history and current functioning. Reviewed vital signs,~Labs/ Radiology~and current medications noted below. Continue current treatment with the changes noted in the dictated addendum note Assessment: Vital Signs: Vital Signs Date Time Temp Pulse Resp B/P (MAP) Pulse Ox O2 Delivery O2 Flow Rate FiO2 08/19/18 15:58 99.6 106 20 128/81 (97) 95 Room Air I&O Intake and Output 08/19/18 07:01 Intake Total 1140 ml Balance 1140 ml Intake Oral 1140 ml # Voids 1 Current Medications: Meds: Current Medications Acetaminophen (Tylenol) 650 mg PRN Q6HRS PRN PO PAIN / TEMP Last administered on 07/09/18 22:06; Start 06/21/18 at 20:15 Clonazepam (KlonoPIN) 1 mg BID PO Last administered on 08/14/18 19:19; Start 06/21/18 at 21:00; Stop 08/14/18 at 21:25; Status DC Gabapentin (Neurontin) 900 mg QID PO Last administered on 07/08/18at 16:58; Start 06/21/18 at 21:00; Stop 07/08/18 at 17:47; Status DC Al Hydroxide/Mg Hydroxide (Mylanta Plus Xs) 15 ml PRN AFTMEALHC PRN PO GI SYMPTOMS; Start 06/21/18 at 20:15 Magnesium Hydroxide (Milk Of Magnesia) 400 mg PRN DAILY PRN PO CONSTIPATION Last administered on 08/12/18 19:23; Start 06/21/18 at 20:15 Multi-Ingredient Ointment (Analgesic [place]) 1 gerri PRN QID PRN TP MUSCLE PAIN; Start 06/21/18 at 20:15 Oxybutynin Chloride (Ditropan) 2.5 mg BID PO Last administered on 08/19/18 20: 03; Start 06/21/18 at 21:00 Potassium Chloride (Klor-Con) 20 meq DAILY PO Last administered on 08/19/18 08 :07; Start 06/22/18 at 09:00 Tamsulosin HCl (Flomax) 0.8 mg DAILY PO Last administered on 08/19/18 08:07; Start 06/22/18 at 09:00 Amlodipine Besylate (Norvasc) 10 mg DAILY PO Last administered on 08/19/18 08: 08; Start 06/22/18 at 09:00 Baclofen (Lioresal) 10 mg QID PO Last administered on 07/07/18 19:36; Start 06/21/18 at 21:00; Stop 07/08/18 at 11:48; Status DC Bisacodyl (Dulcolax Supp) 10 mg PRN DAILY PRN [place] CONSTIPATION; Start 06/21/18 at 20:45 Buspirone HCl (Buspar) 10 mg TID PO Last administered on 08/19/18 20:03; Start 06/21/18 at 21:00 Divalproex Sodium (Depakote Er) 1,500 mg HS PO Last administered on 08/19/18 20:03; Start 06/21/18 at 21:00 Non-Formulary Medication (Gabapentin ) 800 mg QID PO ; Start 06/21/18 at 21:00 ; Status UNV Levothyroxine Sodium (Synthroid) 50 mcg DAILY06 PO Last administered on 05:58; Start 06/22/18 at 06:00 Multivitamins/ Calcium (Thera-M Plus) 1 tab DAILY PO Last administered on 08:07; Start 06/22/18 at 09:00 Olanzapine (ZyPREXA ZYDIS) 2.5 mg PRN Q2HR PRN PO PSYCHOSIS Last administered on 08/10/18 20:19; Start 06/21/18 at 20:45 Olanzapine (ZyPREXA) 5 mg BID PO Last administered on 06/23/18 08:47; Start 06/21/18 at 21:00; Stop 06/23/18 at 17:06; Status DC Risperidone (RisperDAL) 1.5 mg HS PO Last administered on 06/23/18 19:45; Start 06/21/18 at 21:00; Stop 06/24/18 at 11:06; Status DC Trazodone HCl (Desyrel) 50 mg PRN QHS PRN PO INSOMNIA Last administered on 20:19; Start 06/21/18 at 21:00; Stop 08/10/18 at 21:07; Status DC Nicotine (Nicoderm Cq 7mg) 1 patch PRN DAILY PRN TD SMOKING CESSATION; Start 06/21/18 at 23:30; Stop 07/09/18 at 05:39; Status DC Vitamin D (Vitamin D3) 50,000 unit WEEKLY PO Last administered on 08/18/18at 09: 09; Start 06/23/18 at 16:30 Olanzapine (ZyPREXA) 5 mg DAILY PO Last administered on 06/25/18at 08:04; Start 06/24/18 at 09:00; Stop 06/26/18 at 00:00; Status DC Risperidone (RisperDAL) 1.75 mg HS PO Last administered on 07/06/18at 20:08; Start 06/24/18 at 21:00; Stop 07/07/18 at 12:40; Status DC Risperidone (RisperDAL) 2 mg HS PO Last administered on 08/10/18at 20:15; Start 07/07/18 at 21:00; Stop 08/10/18 at 21:07; Status DC Gabapentin (Neurontin) 600 mg QID PO Last administered on 08/19/18at 21:29; Start 07/08/18 at 21:00 Nicotine (Nicoderm Cq 21mg) 1 patch DAILY TD Last administered on 07/30/18at 08 :54; Start 07/09/18 at 09:00; Stop 07/31/18 at 04:33; Status DC Clozapine (Clozaril) 25 mg DAILY PO Last administered on 07/27/18at 09:38; Start 07/13/18 at 09:00; Stop 07/27/18 at 16:52; Status DC Vitamin D (Vitamin D3) 50,000 unit WEEKLY PO ; Start 07/24/18 at 09:00; Status Cancel Clozapine (Clozaril) 50 mg DAILY PO Last administered on 08/03/18at 07:51; Start 07/28/18 at 09:00; Stop 08/03/18 at 21:09; Status DC Nicotine (Nicoderm Cq 21mg) 1 patch PRN DAILY PRN TD SMOKING CESSATION Last administered on 08/19/18at 09:20; Start 07/31/18 at 04:45 Clozapine (Clozaril) 75 mg HS PO Last administered on 08/08/18at 19:36; Start 08/04/18 at 21:00; Stop 08/09/18 at 17:33; Status DC Clozapine (Clozaril) 25 mg 1X ONCE PO Last administered on 08/03/18at 21:25; Start 08/03/18 at 21:30; Stop 08/03/18 at 21:31; Status DC Clozapine (Clozaril) 100 mg QHS PO Last administered on 08/15/18 20:03; Start 08/09/18 at 21:00; Stop 08/16/18 at 16:48; Status DC Risperidone (RisperDAL) 1.5 mg HS PO Last administered on 08/16/18 19:21; Start 08/11/18 at 21:00; Stop 08/17/18 at 16:27; Status DC Trazodone HCl (Desyrel) 50 mg QHS PO ; Start 08/11/18 at 21:00; Stop 08/11/18 at 21:00; Status DC Ondansetron HCl (Zofran Odt) 4 mg PRN Q8HRS PRN PO NAUSEA/VOMITING Last administered on 08/12/18 11:11; Start 08/12/18 at 10:45; Stop 08/12/18 at 16:29; Status DC Ondansetron HCl (Zofran Odt) 4 mg PRN Q4HRS PRN PO NAUSEA/VOMITING Last administered on 08/13/18 08:20; Start 08/12/18 at 16:30 Clonazepam (KlonoPIN) 0.75 mg DAILY PO Last administered on 08/19/18 08:12; Start 08/15/18 at 09:00 Clonazepam (KlonoPIN) 1 mg HS PO Last administered on 08/16/18 19:26; Start 08/15/18 at 21:00; Stop 08/16/18 at 21:00; Status DC Clonazepam (KlonoPIN) 0.75 mg HS PO Last administered on 08/19/18 20:04; Start 08/17/18 at 21:00 Clozapine (Clozaril) 125 mg QHS PO Last administered on 08/19/18 20:03; Start 08/16/18 at 21:00 Iohexol (Omnipaque 300 Mg/ml) 75 ml 1X ONCE IV ; Start 08/16/18 at 18:15; Stop 08/16/18 at 18:16; Status DC Iohexol (Omnipaque 300 Mg/ml) 75 ml 1X ONCE IV Last administered on 08/17/18at 09:12; Start 08/17/18 at 08:00; Stop 08/17/18 at 08:01; Status DC Iohexol (Omnipaque 300 Mg/ml) 75 ml 1X ONCE IV ; Start 08/17/18 at 09:00; Stop 08/17/18 at 09:02; Status DC Risperidone (RisperDAL) 1 mg QHS PO Last administered on 08/19/18at 20:03; Start 08/17/18 at 21:00 Active Scripts Active Reported Zyprexa (Olanzapine) 5 Mg Tablet 5 Mg PO BID NICODERM CQ 7mg (Nicotine) 1 Each Patch.td24 1 Patch TD PRN DAILY PRN Trazodone Hcl 50 Mg Tablet 50 Mg PO PRN QHS PRN Risperdal (Risperidone) 1 Mg Tablet 1.5 Mg PO HS Analgesic [place] (Methyl Salicylate/Menthol) 28 Gm Oint...g. 1 Gerri TP PRN QID PRN Milk Of Magnesia (Magnesium Hydroxide) 400 Mg/5 Ml Oral.susp 400 Mg PO PRN DAILY PRN Mag-Al Plus Xs Suspension (Mag Hydrox/Al Hydrox/Simeth) 30 Ml Oral.susp 15 Ml PO PRN AFTMEALHC PRN Buspirone Hcl 10 Mg Tablet 10 Mg PO TID Baclofen 10 Mg Tablet 10 Mg PO QID Gabapentin 100 Mg Capsule 100 Mg PO QID Gabapentin 800 Mg Tablet 800 Mg PO QID Levothyroxine Sodium 50 Mcg Tablet 50 Mcg PO DAILYAC Klonopin (Clonazepam) 0.5 Mg Tablet 1 Mg PO BID Norvasc (Amlodipine Besylate) 10 Mg Tablet 10 Mg PO DAILY Oxybutynin Chloride 5 Mg Tablet 2.5 Mg PO BID Depakote Er (Divalproex Sodium) 500 Mg Tab.er.24h 1,500 Mg PO HS Klor-Con M20 (Potassium Chloride) 20 Meq Tab.er.prt 20 Meq PO DAILY Cymbalta (Duloxetine Hcl) 60 Mg Capsule.dr 60 Mg PO DAILY Multivitamin with Iron Tablet (Multivitamin/Iron/Folic Acid) 1 Each Tablet 1 Tab PO DAILY Flomax (Tamsulosin Hcl) 0.4 Mg Cap.er.24h 0.8 Mg PO DAILY Olanzapine 5 Mg Tablet 2.5 Mg PO PRN Q2HR PRN MDD 10mg/ 24 hrs Remeron (Mirtazapine) 15 Mg Tablet 7.5 Mg PO HS Bisacodyl 10 Mg Supp.rect 10 Mg RC PRN DAILY PRN Tylenol (Acetaminophen) 325 Mg Tablet 650 Mg PO PRN Q6HRS PRN I have reviewed the current psychotropics carefully including drug interactions. Risk benefit ratio favors no change other than as noted in my dictated progress note. Diagnosis: Problems: (1) Depression (2) Schizoaffective disorder (3) Anxiety disorder (4) Impulse control disorder (5) Schizophrenia, paranoid, chronic with acute exacerbation CATHY EMERY MD Aug 19, 2018 22:57
--- NOTE | 2018-08-20 00:14 | PN ---
DATE: 08/18/2018 This late entry for 08/18/2018 covers elements not covered in my initial note. SUBJECTIVE: I met with the patient in the evening and staffed at a treatment team meeting with the entire team in the afternoon. The patient slept 6-3/4 hours previous night. Appetite about 65% of his meals. Earlier in the day, O2 sats dropped down to 80% and this was on Thursday and now he is on O2 supplements. REVIEW OF SYSTEMS: Ambulation impaired with walker. No CV, , pulmonary, eye, ENT system symptoms on review. MENTAL STATUS EXAM: Oriented reasonably. Speech is coherent, has some latency. Abstraction fair, computation impaired, language function intact, attention span short. Mood and affect, he is quite animated as he met with me asking me questions about my day and other things. No clear psychotic symptoms. LABORATORY DATA: Reviewed. IMPRESSION: Unchanged from initial note. PLAN: No change from initial note. We are awaiting placement. Social service staff is diligently working on this. CATHY EMERY MD DR: SARINA/nilda JOB#: [id number] / [id number]
[2018-08-20 05:38] VITALS: BP 110/74
[2018-08-20] MEDS: LEVOTHYROXINE 50 MCG TABLET PO SCH (05:50)
[2018-08-20] MEDS: POTASSIUM CHLORIDE 20 MEQ TABLET.ER. PO SCH (08:04)
[2018-08-20] MEDS: MULTIVITAMIN with MINERAL TABLET. PO SCH (08:04)
[2018-08-20] MEDS: busPIRone 10 MG TABLET. PO SCH ×3 (08:04→20:26)
[2018-08-20] MEDS: TAMSULOSIN 0.4 MG CAP.ER.24H. PO SCH (08:04)
[2018-08-20] MEDS: OXYBUTYNIN CHLORIDE 5 MG TABLET PO SCH ×2 (08:04→20:27)
[2018-08-20] MEDS: GABAPENTIN 300 MG CAPSULE. PO SCH ×4 (08:04→20:27)
[2018-08-20] MEDS: amLODIPine BESYLATE 10 MG TABLET PO SCH (08:05)
[2018-08-20] MEDS: clonazePAM 0.5 MG TABLET PO SCH ×2 (08:08→20:27)
[2018-08-20] MEDS: NICOTINE 21MG PATCH. TD PRN (09:30)
--- NOTE | 2018-08-20 09:46 | PN ---
DATE: 08/19/2018 This note covers elements not covered in my initial note. SUBJECTIVE: I met with the patient in the afternoon. The patient slept 7-1/2 hours previous night. He has been doing better, less withdrawn, ambulates with a walker. REVIEW OF SYSTEMS: No CV, , pulmonary, eye system symptoms on review. MENTAL STATUS EXAM: Reasonably oriented. Speech is coherent, has some latency. Abstraction fair, computation somewhat impaired, language function intact. He is wanting to know his discharge plans. Discussed with social service staff. They are looking into different options and he is well aware of this. LABORATORY DATA: Reviewed. IMPRESSION: Unchanged from initial note. PLAN: No change from initial note. MAN Ty EMERY MD DR: SARINA/nts JOB#: [id number] / [id number]
[2018-08-20 15:10] VITALS: BP 133/88
[2018-08-20] MEDS: DIVALPROEX ER 500 MG TAB.ER.24H PO SCH (20:26)
[2018-08-20] MEDS: risperiDONE 1 MG TABLET. PO SCH (20:27)
[2018-08-20] MEDS: cloZAPine 100 MG TABLET PO SCH (20:27)
[2018-08-21] MEDS: LEVOTHYROXINE 50 MCG TABLET PO SCH (06:08)
[2018-08-21 06:20] VITALS: BP 118/78
[2018-08-21] MEDS: GABAPENTIN 300 MG CAPSULE. PO SCH ×4 (07:43→19:29)
[2018-08-21] MEDS: busPIRone 10 MG TABLET. PO SCH ×3 (07:43→19:29)
[2018-08-21] MEDS: amLODIPine BESYLATE 10 MG TABLET PO SCH (07:44)
[2018-08-21] MEDS: TAMSULOSIN 0.4 MG CAP.ER.24H. PO SCH (07:44)
[2018-08-21] MEDS: POTASSIUM CHLORIDE 20 MEQ TABLET.ER. PO SCH (07:44)
[2018-08-21] MEDS: OXYBUTYNIN CHLORIDE 5 MG TABLET PO SCH ×2 (07:44→19:29)
[2018-08-21] MEDS: MULTIVITAMIN with MINERAL TABLET. PO SCH (07:44)
[2018-08-21] MEDS: clonazePAM 0.5 MG TABLET PO SCH ×2 (07:46→19:30)
[2018-08-21] MEDS: NICOTINE 21MG PATCH. TD SCH (10:30)
[2018-08-21 15:50] VITALS: BP 135/92
[2018-08-21] MEDS: DIVALPROEX ER 500 MG TAB.ER.24H PO SCH (19:29)
[2018-08-21] MEDS: cloZAPine 100 MG TABLET PO SCH (19:29)
[2018-08-21] MEDS: risperiDONE 1 MG TABLET. PO SCH (19:29)
[2018-08-22] MEDS: LEVOTHYROXINE 50 MCG TABLET PO SCH (05:48)
[2018-08-22 06:10] VITALS: BP 129/87
[2018-08-22] MEDS: MULTIVITAMIN with MINERAL TABLET. PO SCH (08:04)
[2018-08-22] MEDS: OXYBUTYNIN CHLORIDE 5 MG TABLET PO SCH ×2 (08:04→19:46)
[2018-08-22] MEDS: amLODIPine BESYLATE 10 MG TABLET PO SCH (08:04)
[2018-08-22] MEDS: POTASSIUM CHLORIDE 20 MEQ TABLET.ER. PO SCH (08:04)
[2018-08-22] MEDS: GABAPENTIN 300 MG CAPSULE. PO SCH ×4 (08:04→19:45)
[2018-08-22] MEDS: busPIRone 10 MG TABLET. PO SCH ×3 (08:04→19:45)
[2018-08-22] MEDS: TAMSULOSIN 0.4 MG CAP.ER.24H. PO SCH (08:04)
[2018-08-22] MEDS: NICOTINE 21MG PATCH. TD SCH (08:07)
[2018-08-22] MEDS: clonazePAM 0.5 MG TABLET PO SCH ×2 (08:07→19:49)
[2018-08-22 15:59] VITALS: BP 126/94
--- NOTE | 2018-08-22 18:49 | PN ---
DATE: 08/22/2018 SUBJECTIVE: The patient was seen today, met with the staff, chart reviewed. The patient apparently has been isolating himself most of the time, not wanting to talk to the staff. The patient's behavior fluctuates. He appears depressed and also the patient has been here for some time, not able to find a place to go back. The patient at times angry, become emotionally labile and periods of agitation. CURRENT MEDICATIONS: Reviewed. Currently on Risperdal 1 mg at night, Klonopin 0.5 mg at night, Clozaril 125 mg at night. The patient is also on Klonopin 0.5 mg daily, gabapentin 600 mg q.i.d., Depakote 1500 mg at night, BuSpar 10 mg t.i.d., and olanzapine 2.5 mg q.2-4 hours p.r.n. The patient is not having any physical complaints. The patient walks with a walker. ASSESSMENT: 1. Schizoaffective disorder, bipolar type, mixed with psychotic features. 2. Anxiety disorder, unspecified. PLAN: To continue with the treatment. DECLAN GALAVIZ MD DR: STEFF/nilda JOB#: [id number] / [id number]
[2018-08-22] MEDS: risperiDONE 1 MG TABLET. PO SCH (19:46)
[2018-08-22] MEDS: cloZAPine 100 MG TABLET PO SCH (19:46)
[2018-08-22] MEDS: DIVALPROEX ER 500 MG TAB.ER.24H PO SCH (19:47)
[2018-08-23] MEDS: ACETAMINOPHEN 325 MG TABLET PO PRN (02:17)
[2018-08-23 06:00] VITALS: BP 111/77
[2018-08-23] MEDS: LEVOTHYROXINE 50 MCG TABLET PO SCH (06:32)
[2018-08-23 08:02] LABS: ALBUMIN/GLOBULIN RATIO 0.7 (1.0-1.7); CALCIUM 8.5 mg/dL (8.5-10.1); CREATININE 0.6 mg/dL (0.7-1.3); GFR 138.9; POTASSIUM 4.1 mmol/L (3.5-5.1); TOTAL BILIRUBIN 0.4 mg/dL (0.2-1.0); TOTAL PROTEIN 7.2 g/dL (6.4-8.2)
[2018-08-23] MEDS: NICOTINE 21MG PATCH. TD SCH (08:03)
[2018-08-23 08:06] LABS: BASO # 0.1 x10^3/uL (0.0-0.2); BASO % 1 % (0-3); EOS # 0.3 x10^3/uL (0.0-0.7); EOS % 3 % (0-3); HEMATOCRIT 43.7 % (39.0-53.0); HEMOGLOBIN 14.9 g/dL (13.0-17.5); LYMPH # 1.8 x10^3/uL (1.0-4.8); LYMPH % 21 % (24-48); MEAN CORPUSCULAR HEMOGLOBIN 30 pg (25-35); MEAN CORPUSCULAR HGB CONC 34 g/dL (31-37); MEAN CORPUSCULAR VOLUME 88 fL (79-100); MONO # 0.8 x10^3/uL (0.0-1.1); MONO % 9 % (0-9); NEUT # 5.5 x10^3uL (1.8-7.7); NEUT % 66 % (31-73); PLATELET COUNT 413 x10^3/uL (140-400); RED BLOOD COUNT 4.96 x10^6/uL (4.30-5.70); RED CELL DISTRIBUTION WIDTH 13.5 % (11.5-14.5); WHITE BLOOD COUNT 8.4 x10^3/uL (4.0-11.0)
[2018-08-23] MEDS: OXYBUTYNIN CHLORIDE 5 MG TABLET PO SCH ×2 (08:06→19:37)
[2018-08-23] MEDS: amLODIPine BESYLATE 10 MG TABLET PO SCH (08:07)
[2018-08-23] MEDS: MULTIVITAMIN with MINERAL TABLET. PO SCH (08:07)
[2018-08-23] MEDS: busPIRone 10 MG TABLET. PO SCH ×3 (08:07→19:37)
[2018-08-23] MEDS: TAMSULOSIN 0.4 MG CAP.ER.24H. PO SCH (08:07)
[2018-08-23] MEDS: POTASSIUM CHLORIDE 20 MEQ TABLET.ER. PO SCH (08:08)
[2018-08-23] MEDS: GABAPENTIN 300 MG CAPSULE. PO SCH ×4 (08:10→19:43)
[2018-08-23] MEDS: clonazePAM 0.5 MG TABLET PO SCH ×2 (08:11→19:43)
[2018-08-23 16:36] VITALS: BP 117/79
[2018-08-23] MEDS: DIVALPROEX ER 500 MG TAB.ER.24H PO SCH (19:37)
[2018-08-23] MEDS: cloZAPine 100 MG TABLET PO SCH (19:37)
[2018-08-23] MEDS: risperiDONE 0.5 MG TABLET. PO SCH (19:43)
[2018-08-24 05:53] VITALS: BP 114/79
[2018-08-24] MEDS: LEVOTHYROXINE 50 MCG TABLET PO SCH (06:03)
[2018-08-24] MEDS: MULTIVITAMIN with MINERAL TABLET. PO SCH (07:59)
[2018-08-24] MEDS: NICOTINE 21MG PATCH. TD SCH (07:59)
[2018-08-24] MEDS: POTASSIUM CHLORIDE 20 MEQ TABLET.ER. PO SCH (08:00)
[2018-08-24] MEDS: amLODIPine BESYLATE 10 MG TABLET PO SCH (08:00)
[2018-08-24] MEDS: OXYBUTYNIN CHLORIDE 5 MG TABLET PO SCH ×2 (08:02→19:54)
[2018-08-24] MEDS: TAMSULOSIN 0.4 MG CAP.ER.24H. PO SCH (08:02)
[2018-08-24] MEDS: busPIRone 10 MG TABLET. PO SCH ×3 (08:02→19:54)
[2018-08-24] MEDS: GABAPENTIN 300 MG CAPSULE. PO SCH ×4 (08:02→19:54)
[2018-08-24] MEDS: clonazePAM 0.5 MG TABLET PO SCH ×2 (08:04→19:56)
--- NOTE | 2018-08-24 09:17 | PDOC ---
Exam Note: Nguyễn Note: Late entry for DOS 08/23/2018. Please also refer to the separate dictated note~ for this date of service dictated separately.~Patient seen individually. Discussed the patient with Nursing staff reviewed the chart.~Reviewed interim history and current functioning. Reviewed vital signs,~Labs/ Radiology~and current medications noted below. Continue current treatment with the changes noted in the dictated addendum note Assessment: Vital Signs: VS - Last 72 Hours, by Label Date Time Temp Pulse Resp B/P (MAP) Pulse Ox O2 Delivery O2 Flow Rate FiO2 08/24/18 08:00 63 114/79 08/24/18 05:53 97.2 63 18 114/79 (91) 97 08/23/18 16:36 97.7 105 16 117/79 (92) 96 08/23/18 08:07 78 111/77 08/23/18 06:00 98.5 78 18 111/77 (88) 93 08/22/18 15:59 98.2 89 20 126/94 (105) 94 08/22/18 08:04 76 129/87 08/22/18 06:10 97.9 76 20 129/87 (101) 96 08/21/18 15:50 98.3 100 20 135/92 (106) 94 Room Air Vital Signs Date Time Temp Pulse Resp B/P (MAP) Pulse Ox O2 Delivery O2 Flow Rate FiO2 08/24/18 08:00 63 114/79 08/24/18 05:53 97.2 18 97 08/21/18 15:50 Room Air I&O Intake and Output 08/24/18 07:01 Intake Total 1200 ml Balance 1200 ml Intake Oral 1200 ml # Bowel Movements 1 Current Medications: Meds: Current Medications Acetaminophen (Tylenol) 650 mg PRN Q6HRS PRN PO PAIN / TEMP Last administered on 08/23/18at 02:17; Start 06/21/18 at 20:15 Clonazepam (KlonoPIN) 1 mg BID PO Last administered on 08/14/18at 19:19; Start 06/21/18 at 21:00; Stop 08/14/18 at 21:25; Status DC Gabapentin (Neurontin) 900 mg QID PO Last administered on 07/08/18at 16:58; Start 06/21/18 at 21:00; Stop 07/08/18 at 17:47; Status DC Al Hydroxide/Mg Hydroxide (Mylanta Plus Xs) 15 ml PRN AFTMEALHC PRN PO GI SYMPTOMS Last administered on 08/22/18 09:18; Start 06/21/18 at 20:15 Magnesium Hydroxide (Milk Of Magnesia) 400 mg PRN DAILY PRN PO CONSTIPATION Last administered on 08/12/18 19:23; Start 06/21/18 at 20:15 Multi-Ingredient Ointment (Analgesic [place]) 1 gerri PRN QID PRN TP MUSCLE PAIN; Start 06/21/18 at 20:15 Oxybutynin Chloride (Ditropan) 2.5 mg BID PO Last administered on 08/24/18 08: 02; Start 06/21/18 at 21:00 Potassium Chloride (Klor-Con) 20 meq DAILY PO Last administered on 08/24/18 08 :00; Start 06/22/18 at 09:00 Tamsulosin HCl (Flomax) 0.8 mg DAILY PO Last administered on 08/24/18 08:02; Start 06/22/18 at 09:00 Amlodipine Besylate (Norvasc) 10 mg DAILY PO Last administered on 08/24/18 08: 00; Start 06/22/18 at 09:00 Baclofen (Lioresal) 10 mg QID PO Last administered on 07/07/18at 19:36; Start 06/21/18 at 21:00; Stop 07/08/18 at 11:48; Status DC Bisacodyl (Dulcolax Supp) 10 mg PRN DAILY PRN [place] CONSTIPATION; Start 06/21/18 at 20:45 Buspirone HCl (Buspar) 10 mg TID PO Last administered on 08/24/18 08:02; Start 06/21/18 at 21:00 Divalproex Sodium (Depakote Er) 1,500 mg HS PO Last administered on 08/23/18 19:37; Start 06/21/18 at 21:00 Non-Formulary Medication (Gabapentin ) 800 mg QID PO ; Start 06/21/18 at 21:00 ; Status UNV Levothyroxine Sodium (Synthroid) 50 mcg DAILY06 PO Last administered on 06:03; Start 06/22/18 at 06:00 Multivitamins/ Calcium (Thera-M Plus) 1 tab DAILY PO Last administered on 07:59; Start 06/22/18 at 09:00 Olanzapine (ZyPREXA ZYDIS) 2.5 mg PRN Q2HR PRN PO PSYCHOSIS Last administered on 08/10/18 20:19; Start 06/21/18 at 20:45 Olanzapine (ZyPREXA) 5 mg BID PO Last administered on 06/23/18at 08:47; Start 06/21/18 at 21:00; Stop 06/23/18 at 17:06; Status DC Risperidone (RisperDAL) 1.5 mg HS PO Last administered on 06/23/18at 19:45; Start 06/21/18 at 21:00; Stop 06/24/18 at 11:06; Status DC Trazodone HCl (Desyrel) 50 mg PRN QHS PRN PO INSOMNIA Last administered on 20:19; Start 06/21/18 at 21:00; Stop 08/10/18 at 21:07; Status DC Nicotine (Nicoderm Cq 7mg) 1 patch PRN DAILY PRN TD SMOKING CESSATION; Start 06/21/18 at 23:30; Stop 07/09/18 at 05:39; Status DC Vitamin D (Vitamin D3) 50,000 unit WEEKLY PO Last administered on 08/18/18 09: 09; Start 06/23/18 at 16:30 Olanzapine (ZyPREXA) 5 mg DAILY PO Last administered on 06/25/18at 08:04; Start 06/24/18 at 09:00; Stop 06/26/18 at 00:00; Status DC Risperidone (RisperDAL) 1.75 mg HS PO Last administered on 07/06/18at 20:08; Start 06/24/18 at 21:00; Stop 07/07/18 at 12:40; Status DC Risperidone (RisperDAL) 2 mg HS PO Last administered on 08/10/18 20:15; Start 07/07/18 at 21:00; Stop 08/10/18 at 21:07; Status DC Gabapentin (Neurontin) 600 mg QID PO Last administered on 08/24/18 08:02; Start 07/08/18 at 21:00 Nicotine (Nicoderm Cq 21mg) 1 patch DAILY TD Last administered on 07/30/18at 08 :54; Start 07/09/18 at 09:00; Stop 07/31/18 at 04:33; Status DC Clozapine (Clozaril) 25 mg DAILY PO Last administered on 07/27/18at 09:38; Start 07/13/18 at 09:00; Stop 07/27/18 at 16:52; Status DC Vitamin D (Vitamin D3) 50,000 unit WEEKLY PO ; Start 07/24/18 at 09:00; Status Cancel Clozapine (Clozaril) 50 mg DAILY PO Last administered on 08/03/18at 07:51; Start 07/28/18 at 09:00; Stop 08/03/18 at 21:09; Status DC Nicotine (Nicoderm Cq 21mg) 1 patch PRN DAILY PRN TD SMOKING CESSATION Last administered on 08/20/18at 09:30; Start 07/31/18 at 04:45; Stop 08/21/18 at 10: 24; Status DC Clozapine (Clozaril) 75 mg HS PO Last administered on 08/08/18at 19:36; Start 08/04/18 at 21:00; Stop 08/09/18 at 17:33; Status DC Clozapine (Clozaril) 25 mg 1X ONCE PO Last administered on 08/03/18at 21:25; Start 08/03/18 at 21:30; Stop 08/03/18 at 21:31; Status DC Clozapine (Clozaril) 100 mg QHS PO Last administered on 08/15/18at 20:03; Start 08/09/18 at 21:00; Stop 08/16/18 at 16:48; Status DC Risperidone (RisperDAL) 1.5 mg HS PO Last administered on 08/16/18 19:21; Start 08/11/18 at 21:00; Stop 08/17/18 at 16:27; Status DC Trazodone HCl (Desyrel) 50 mg QHS PO ; Start 08/11/18 at 21:00; Stop 08/11/18 at 21:00; Status DC Ondansetron HCl (Zofran Odt) 4 mg PRN Q8HRS PRN PO NAUSEA/VOMITING Last administered on 08/12/18at 11:11; Start 08/12/18 at 10:45; Stop 08/12/18 at 16:29; Status DC Ondansetron HCl (Zofran Odt) 4 mg PRN Q4HRS PRN PO NAUSEA/VOMITING Last administered on 08/13/18 08:20; Start 08/12/18 at 16:30 Clonazepam (KlonoPIN) 0.75 mg DAILY PO Last administered on 08/24/18 08:04; Start 08/15/18 at 09:00 Clonazepam (KlonoPIN) 1 mg HS PO Last administered on 08/16/18 19:26; Start 08/15/18 at 21:00; Stop 08/16/18 at 21:00; Status DC Clonazepam (KlonoPIN) 0.75 mg HS PO Last administered on 08/23/18 19:43; Start 08/17/18 at 21:00 Clozapine (Clozaril) 125 mg QHS PO Last administered on 08/22/18 19:46; Start 08/16/18 at 21:00; Stop 08/23/18 at 16:56; Status DC Iohexol (Omnipaque 300 Mg/ml) 75 ml 1X ONCE IV ; Start 08/16/18 at 18:15; Stop 08/16/18 at 18:16; Status DC Iohexol (Omnipaque 300 Mg/ml) 75 ml 1X ONCE IV Last administered on 08/17/18at 09:12; Start 08/17/18 at 08:00; Stop 08/17/18 at 08:01; Status DC Iohexol (Omnipaque 300 Mg/ml) 75 ml 1X ONCE IV ; Start 08/17/18 at 09:00; Stop 08/17/18 at 09:02; Status DC Risperidone (RisperDAL) 1 mg QHS PO Last administered on 08/22/18 19:46; Start 08/17/18 at 21:00; Stop 08/23/18 at 16:56; Status DC Nicotine (Nicoderm Cq 21mg) 1 patch DAILY TD Last administered on 08/24/18at 07: 59; Start 08/21/18 at 10:30 Clozapine (Clozaril) 150 mg QHS PO Last administered on 08/23/18 19:37; Start 08/23/18 at 21:00 Risperidone (RisperDAL) 0.5 mg HS PO Last administered on 08/23/18at 19:43; Start 08/23/18 at 21:00 Active Scripts Active Reported Zyprexa (Olanzapine) 5 Mg Tablet 5 Mg PO BID NICODERM CQ 7mg (Nicotine) 1 Each Patch.td24 1 Patch TD PRN DAILY PRN Trazodone Hcl 50 Mg Tablet 50 Mg PO PRN QHS PRN Risperdal (Risperidone) 1 Mg Tablet 1.5 Mg PO HS Analgesic [place] (Methyl Salicylate/Menthol) 28 Gm Oint...g. 1 Gerri TP PRN QID PRN Milk Of Magnesia (Magnesium Hydroxide) 400 Mg/5 Ml Oral.susp 400 Mg PO PRN DAILY PRN Mag-Al Plus Xs Suspension (Mag Hydrox/Al Hydrox/Simeth) 30 Ml Oral.susp 15 Ml PO PRN AFTMEALHC PRN Buspirone Hcl 10 Mg Tablet 10 Mg PO TID Baclofen 10 Mg Tablet 10 Mg PO QID Gabapentin 100 Mg Capsule 100 Mg PO QID Gabapentin 800 Mg Tablet 800 Mg PO QID Levothyroxine Sodium 50 Mcg Tablet 50 Mcg PO DAILYAC Klonopin (Clonazepam) 0.5 Mg Tablet 1 Mg PO BID Norvasc (Amlodipine Besylate) 10 Mg Tablet 10 Mg PO DAILY Oxybutynin Chloride 5 Mg Tablet 2.5 Mg PO BID Depakote Er (Divalproex Sodium) 500 Mg Tab.er.24h 1,500 Mg PO HS Klor-Con M20 (Potassium Chloride) 20 Meq Tab.er.prt 20 Meq PO DAILY Cymbalta (Duloxetine Hcl) 60 Mg Capsule.dr 60 Mg PO DAILY Multivitamin with Iron Tablet (Multivitamin/Iron/Folic Acid) 1 Each Tablet 1 Tab PO DAILY Flomax (Tamsulosin Hcl) 0.4 Mg Cap.er.24h 0.8 Mg PO DAILY Olanzapine 5 Mg Tablet 2.5 Mg PO PRN Q2HR PRN MDD 10mg/ 24 hrs Remeron (Mirtazapine) 15 Mg Tablet 7.5 Mg PO HS Bisacodyl 10 Mg Supp.rect 10 Mg RC PRN DAILY PRN Tylenol (Acetaminophen) 325 Mg Tablet 650 Mg PO PRN Q6HRS PRN I have reviewed the current psychotropics carefully including drug interactions. Risk benefit ratio favors no change other than as noted in my dictated progress note. Diagnosis: Problems: (1) Depression (2) Schizoaffective disorder (3) Anxiety disorder (4) Impulse control disorder (5) Schizophrenia, paranoid, chronic with acute exacerbation CATHY EMERY MD Aug 24, 2018 09:17
[2018-08-24 17:18] VITALS: BP 114/72
[2018-08-24] MEDS: cloZAPine 100 MG TABLET PO SCH (19:54)
[2018-08-24] MEDS: DIVALPROEX ER 500 MG TAB.ER.24H PO SCH (19:54)
[2018-08-24] MEDS: risperiDONE 0.5 MG TABLET. PO SCH (19:54)
--- NOTE | 2018-08-24 22:44 | PDOC ---
Exam Note: Nguyễn Note: Please also refer to the separate dictated note~for this date of service dictated separately.~Patient seen individually. Discussed the patient with Nursing staff reviewed the chart.~Reviewed interim history and current functioning. Reviewed vital signs,~Labs/ Radiology~and current medications noted below. Continue current treatment with the changes noted in the dictated addendum note Assessment: Vital Signs: Vital Signs Date Time Temp Pulse Resp B/P (MAP) Pulse Ox O2 Delivery O2 Flow Rate FiO2 08/24/18 17:18 98.7 91 18 114/72 (86) 94 08/21/18 15:50 Room Air I&O Intake and Output 08/24/18 07:01 Intake Total 1200 ml Balance 1200 ml Intake Oral 1200 ml # Bowel Movements 1 Current Medications: Meds: Current Medications Acetaminophen (Tylenol) 650 mg PRN Q6HRS PRN PO PAIN / TEMP Last administered on 08/23/18 02:17; Start 06/21/18 at 20:15 Clonazepam (KlonoPIN) 1 mg BID PO Last administered on 08/14/18 19:19; Start 06/21/18 at 21:00; Stop 08/14/18 at 21:25; Status DC Gabapentin (Neurontin) 900 mg QID PO Last administered on 07/08/18at 16:58; Start 06/21/18 at 21:00; Stop 07/08/18 at 17:47; Status DC Al Hydroxide/Mg Hydroxide (Mylanta Plus Xs) 15 ml PRN AFTMEALHC PRN PO GI SYMPTOMS Last administered on 08/22/18 09:18; Start 06/21/18 at 20:15 Magnesium Hydroxide (Milk Of Magnesia) 400 mg PRN DAILY PRN PO CONSTIPATION Last administered on 08/12/18 19:23; Start 06/21/18 at 20:15 Multi-Ingredient Ointment (Analgesic [place]) 1 gerri PRN QID PRN TP MUSCLE PAIN; Start 06/21/18 at 20:15 Oxybutynin Chloride (Ditropan) 2.5 mg BID PO Last administered on 08/24/18 19: 54; Start 06/21/18 at 21:00 Potassium Chloride (Klor-Con) 20 meq DAILY PO Last administered on 08/24/18 08 :00; Start 06/22/18 at 09:00 Tamsulosin HCl (Flomax) 0.8 mg DAILY PO Last administered on 08/24/18 08:02; Start 06/22/18 at 09:00 Amlodipine Besylate (Norvasc) 10 mg DAILY PO Last administered on 08/24/18 08: 00; Start 06/22/18 at 09:00 Baclofen (Lioresal) 10 mg QID PO Last administered on 07/07/18 19:36; Start 06/21/18 at 21:00; Stop 07/08/18 at 11:48; Status DC Bisacodyl (Dulcolax Supp) 10 mg PRN DAILY PRN [place] CONSTIPATION; Start 06/21/18 at 20:45 Buspirone HCl (Buspar) 10 mg TID PO Last administered on 08/24/18 19:54; Start 06/21/18 at 21:00 Divalproex Sodium (Depakote Er) 1,500 mg HS PO Last administered on 08/24/18 19:54; Start 06/21/18 at 21:00 Non-Formulary Medication (Gabapentin ) 800 mg QID PO ; Start 06/21/18 at 21:00 ; Status UNV Levothyroxine Sodium (Synthroid) 50 mcg DAILY06 PO Last administered on 06:03; Start 06/22/18 at 06:00 Multivitamins/ Calcium (Thera-M Plus) 1 tab DAILY PO Last administered on 07:59; Start 06/22/18 at 09:00 Olanzapine (ZyPREXA ZYDIS) 2.5 mg PRN Q2HR PRN PO PSYCHOSIS Last administered on 08/10/18 20:19; Start 06/21/18 at 20:45 Olanzapine (ZyPREXA) 5 mg BID PO Last administered on 06/23/18 08:47; Start 06/21/18 at 21:00; Stop 06/23/18 at 17:06; Status DC Risperidone (RisperDAL) 1.5 mg HS PO Last administered on 06/23/18 19:45; Start 06/21/18 at 21:00; Stop 06/24/18 at 11:06; Status DC Trazodone HCl (Desyrel) 50 mg PRN QHS PRN PO INSOMNIA Last administered on 20:19; Start 06/21/18 at 21:00; Stop 08/10/18 at 21:07; Status DC Nicotine (Nicoderm Cq 7mg) 1 patch PRN DAILY PRN TD SMOKING CESSATION; Start 06/21/18 at 23:30; Stop 07/09/18 at 05:39; Status DC Vitamin D (Vitamin D3) 50,000 unit WEEKLY PO Last administered on 08/18/18at 09: 09; Start 06/23/18 at 16:30 Olanzapine (ZyPREXA) 5 mg DAILY PO Last administered on 06/25/18at 08:04; Start 06/24/18 at 09:00; Stop 06/26/18 at 00:00; Status DC Risperidone (RisperDAL) 1.75 mg HS PO Last administered on 07/06/18at 20:08; Start 06/24/18 at 21:00; Stop 07/07/18 at 12:40; Status DC Risperidone (RisperDAL) 2 mg HS PO Last administered on 08/10/18at 20:15; Start 07/07/18 at 21:00; Stop 08/10/18 at 21:07; Status DC Gabapentin (Neurontin) 600 mg QID PO Last administered on 08/24/18at 19:54; Start 07/08/18 at 21:00 Nicotine (Nicoderm Cq 21mg) 1 patch DAILY TD Last administered on 07/30/18at 08 :54; Start 07/09/18 at 09:00; Stop 07/31/18 at 04:33; Status DC Clozapine (Clozaril) 25 mg DAILY PO Last administered on 07/27/18at 09:38; Start 07/13/18 at 09:00; Stop 07/27/18 at 16:52; Status DC Vitamin D (Vitamin D3) 50,000 unit WEEKLY PO ; Start 07/24/18 at 09:00; Status Cancel Clozapine (Clozaril) 50 mg DAILY PO Last administered on 08/03/18at 07:51; Start 07/28/18 at 09:00; Stop 08/03/18 at 21:09; Status DC Nicotine (Nicoderm Cq 21mg) 1 patch PRN DAILY PRN TD SMOKING CESSATION Last administered on 08/20/18at 09:30; Start 07/31/18 at 04:45; Stop 08/21/18 at 10: 24; Status DC Clozapine (Clozaril) 75 mg HS PO Last administered on 08/08/18at 19:36; Start 08/04/18 at 21:00; Stop 08/09/18 at 17:33; Status DC Clozapine (Clozaril) 25 mg 1X ONCE PO Last administered on 08/03/18at 21:25; Start 08/03/18 at 21:30; Stop 08/03/18 at 21:31; Status DC Clozapine (Clozaril) 100 mg QHS PO Last administered on 08/15/18at 20:03; Start 08/09/18 at 21:00; Stop 08/16/18 at 16:48; Status DC Risperidone (RisperDAL) 1.5 mg HS PO Last administered on 08/16/18 19:21; Start 08/11/18 at 21:00; Stop 08/17/18 at 16:27; Status DC Trazodone HCl (Desyrel) 50 mg QHS PO ; Start 08/11/18 at 21:00; Stop 08/11/18 at 21:00; Status DC Ondansetron HCl (Zofran Odt) 4 mg PRN Q8HRS PRN PO NAUSEA/VOMITING Last administered on 08/12/18 11:11; Start 08/12/18 at 10:45; Stop 08/12/18 at 16:29; Status DC Ondansetron HCl (Zofran Odt) 4 mg PRN Q4HRS PRN PO NAUSEA/VOMITING Last administered on 08/13/18 08:20; Start 08/12/18 at 16:30 Clonazepam (KlonoPIN) 0.75 mg DAILY PO Last administered on 08/24/18 08:04; Start 08/15/18 at 09:00 Clonazepam (KlonoPIN) 1 mg HS PO Last administered on 08/16/18 19:26; Start 08/15/18 at 21:00; Stop 08/16/18 at 21:00; Status DC Clonazepam (KlonoPIN) 0.75 mg HS PO Last administered on 08/24/18 19:56; Start 08/17/18 at 21:00 Clozapine (Clozaril) 125 mg QHS PO Last administered on 08/22/18 19:46; Start 08/16/18 at 21:00; Stop 08/23/18 at 16:56; Status DC Iohexol (Omnipaque 300 Mg/ml) 75 ml 1X ONCE IV ; Start 08/16/18 at 18:15; Stop 08/16/18 at 18:16; Status DC Iohexol (Omnipaque 300 Mg/ml) 75 ml 1X ONCE IV Last administered on 08/17/18at 09:12; Start 08/17/18 at 08:00; Stop 08/17/18 at 08:01; Status DC Iohexol (Omnipaque 300 Mg/ml) 75 ml 1X ONCE IV ; Start 08/17/18 at 09:00; Stop 08/17/18 at 09:02; Status DC Risperidone (RisperDAL) 1 mg QHS PO Last administered on 08/22/18at 19:46; Start 08/17/18 at 21:00; Stop 08/23/18 at 16:56; Status DC Nicotine (Nicoderm Cq 21mg) 1 patch DAILY TD Last administered on 08/24/18at 07: 59; Start 08/21/18 at 10:30 Clozapine (Clozaril) 150 mg QHS PO Last administered on 08/24/18at 19:54; Start 08/23/18 at 21:00 Risperidone (RisperDAL) 0.5 mg HS PO Last administered on 08/24/18at 19:54; Start 08/23/18 at 21:00 Active Scripts Active Reported Zyprexa (Olanzapine) 5 Mg Tablet 5 Mg PO BID NICODERM CQ 7mg (Nicotine) 1 Each Patch.td24 1 Patch TD PRN DAILY PRN Trazodone Hcl 50 Mg Tablet 50 Mg PO PRN QHS PRN Risperdal (Risperidone) 1 Mg Tablet 1.5 Mg PO HS Analgesic [place] (Methyl Salicylate/Menthol) 28 Gm Oint...g. 1 Gerri TP PRN QID PRN Milk Of Magnesia (Magnesium Hydroxide) 400 Mg/5 Ml Oral.susp 400 Mg PO PRN DAILY PRN Mag-Al Plus Xs Suspension (Mag Hydrox/Al Hydrox/Simeth) 30 Ml Oral.susp 15 Ml PO PRN AFTMEALHC PRN Buspirone Hcl 10 Mg Tablet 10 Mg PO TID Baclofen 10 Mg Tablet 10 Mg PO QID Gabapentin 100 Mg Capsule 100 Mg PO QID Gabapentin 800 Mg Tablet 800 Mg PO QID Levothyroxine Sodium 50 Mcg Tablet 50 Mcg PO DAILYAC Klonopin (Clonazepam) 0.5 Mg Tablet 1 Mg PO BID Norvasc (Amlodipine Besylate) 10 Mg Tablet 10 Mg PO DAILY Oxybutynin Chloride 5 Mg Tablet 2.5 Mg PO BID Depakote Er (Divalproex Sodium) 500 Mg Tab.er.24h 1,500 Mg PO HS Klor-Con M20 (Potassium Chloride) 20 Meq Tab.er.prt 20 Meq PO DAILY Cymbalta (Duloxetine Hcl) 60 Mg Capsule.dr 60 Mg PO DAILY Multivitamin with Iron Tablet (Multivitamin/Iron/Folic Acid) 1 Each Tablet 1 Tab PO DAILY Flomax (Tamsulosin Hcl) 0.4 Mg Cap.er.24h 0.8 Mg PO DAILY Olanzapine 5 Mg Tablet 2.5 Mg PO PRN Q2HR PRN MDD 10mg/ 24 hrs Remeron (Mirtazapine) 15 Mg Tablet 7.5 Mg PO HS Bisacodyl 10 Mg Supp.rect 10 Mg RC PRN DAILY PRN Tylenol (Acetaminophen) 325 Mg Tablet 650 Mg PO PRN Q6HRS PRN I have reviewed the current psychotropics carefully including drug interactions. Risk benefit ratio favors no change other than as noted in my dictated progress note. Diagnosis: Problems: (1) Depression (2) Schizoaffective disorder (3) Anxiety disorder (4) Impulse control disorder (5) Schizophrenia, paranoid, chronic with acute exacerbation CATHY EMERY MD Aug 24, 2018 22:44
--- NOTE | 2018-08-25 03:30 | PN ---
DATE: 08/23/2018 PSYCHIATRIC PROGRESS NOTE This late entry 08/23/2018 covers elements not covered in my initial note. SUBJECTIVE: I met with the patient in the evening. The patient slept 7-3/4 hours previous night. WBC is 8.6, neutrophils 66%, and absolute neutrophil count is adequate and we will increase the Clozaril from 125 mg daily to 150 mg daily and reduce the Risperdal from 1 mg at bedtime down to 0.5 mg at bedtime. REVIEW OF SYSTEMS: Ambulation impaired with walker. I met with him in his room. No CV, , pulmonary, eye system symptoms on review. MENTAL STATUS EXAM: The patient is reasonably oriented. Speech has some latency, often responses monosyllabic. Abstraction fair, computation impaired, language function intact, attention span short. Mood and affect somewhat withdrawn at times, less psychotic. LABORATORY DATA: Reviewed. IMPRESSION: Schizoaffective disorder, bipolar type, mixed. Rest unchanged. PLAN: Increase the Clozaril as noted. Rest unchanged from initial note. Discussed the patient with Dr. Nunez who had covered for me for the past few days. MAN Ty EMERY MD DR: SARINA/nilda JOB#: [id number] / [id number]
[2018-08-25] MEDS: LEVOTHYROXINE 50 MCG TABLET PO SCH (05:01)
[2018-08-25 05:47] VITALS: BP 135/86
[2018-08-25] MEDS: TAMSULOSIN 0.4 MG CAP.ER.24H. PO SCH (08:03)
[2018-08-25] MEDS: NICOTINE 21MG PATCH. TD SCH (08:03)
[2018-08-25] MEDS: OXYBUTYNIN CHLORIDE 5 MG TABLET PO SCH ×2 (08:04→19:28)
[2018-08-25] MEDS: amLODIPine BESYLATE 10 MG TABLET PO SCH (08:04)
[2018-08-25] MEDS: busPIRone 10 MG TABLET. PO SCH ×3 (08:04→19:28)
[2018-08-25] MEDS: MULTIVITAMIN with MINERAL TABLET. PO SCH (08:04)
[2018-08-25] MEDS: GABAPENTIN 300 MG CAPSULE. PO SCH ×4 (08:04→19:27)
[2018-08-25] MEDS: POTASSIUM CHLORIDE 20 MEQ TABLET.ER. PO SCH (08:05)
[2018-08-25] MEDS: CHOLECALCIFEROL (VITAMIN D3) 50,000 UNIT CAPSULE PO SCH (08:06)
[2018-08-25] MEDS: clonazePAM 0.5 MG TABLET PO SCH ×2 (08:06→19:30)
[2018-08-25 15:52] VITALS: BP 127/89
[2018-08-25] MEDS: DIVALPROEX ER 500 MG TAB.ER.24H PO SCH (19:26)
[2018-08-25] MEDS: cloZAPine 100 MG TABLET PO SCH (19:27)
[2018-08-25] MEDS: risperiDONE 0.5 MG TABLET. PO SCH (19:28)
--- NOTE | 2018-08-25 22:43 | PDOC ---
Exam Note: Nguyễn Note: Please also refer to the separate dictated note~for this date of service dictated separately.~Patient seen individually. Discussed the patient with Nursing staff reviewed the chart.~Reviewed interim history and current functioning. Reviewed vital signs,~Labs/ Radiology~and current medications noted below. Continue current treatment with the changes noted in the dictated addendum note Assessment: Vital Signs: Vital Signs Date Time Temp Pulse Resp B/P (MAP) Pulse Ox O2 Delivery O2 Flow Rate FiO2 08/25/18 15:52 97.6 103 20 127/89 (102) 95 08/21/18 15:50 Room Air I&O Intake and Output 08/25/18 07:01 Intake Total 1320 ml Balance 1320 ml Intake Oral 1320 ml # Voids 1 Current Medications: Meds: Current Medications Acetaminophen (Tylenol) 650 mg PRN Q6HRS PRN PO PAIN / TEMP Last administered on 08/23/18 02:17; Start 06/21/18 at 20:15 Clonazepam (KlonoPIN) 1 mg BID PO Last administered on 08/14/18 19:19; Start 06/21/18 at 21:00; Stop 08/14/18 at 21:25; Status DC Gabapentin (Neurontin) 900 mg QID PO Last administered on 07/08/18at 16:58; Start 06/21/18 at 21:00; Stop 07/08/18 at 17:47; Status DC Al Hydroxide/Mg Hydroxide (Mylanta Plus Xs) 15 ml PRN AFTMEALHC PRN PO GI SYMPTOMS Last administered on 08/22/18 09:18; Start 06/21/18 at 20:15 Magnesium Hydroxide (Milk Of Magnesia) 400 mg PRN DAILY PRN PO CONSTIPATION Last administered on 08/12/18 19:23; Start 06/21/18 at 20:15 Multi-Ingredient Ointment (Analgesic [place]) 1 gerri PRN QID PRN TP MUSCLE PAIN; Start 06/21/18 at 20:15 Oxybutynin Chloride (Ditropan) 2.5 mg BID PO Last administered on 08/25/18 19: 28; Start 06/21/18 at 21:00 Potassium Chloride (Klor-Con) 20 meq DAILY PO Last administered on 08/25/18 08 :05; Start 06/22/18 at 09:00 Tamsulosin HCl (Flomax) 0.8 mg DAILY PO Last administered on 08/25/18 08:03; Start 06/22/18 at 09:00 Amlodipine Besylate (Norvasc) 10 mg DAILY PO Last administered on 08/25/18 08: 04; Start 06/22/18 at 09:00 Baclofen (Lioresal) 10 mg QID PO Last administered on 07/07/18 19:36; Start 06/21/18 at 21:00; Stop 07/08/18 at 11:48; Status DC Bisacodyl (Dulcolax Supp) 10 mg PRN DAILY PRN [place] CONSTIPATION; Start 06/21/18 at 20:45 Buspirone HCl (Buspar) 10 mg TID PO Last administered on 08/25/18 19:28; Start 06/21/18 at 21:00 Divalproex Sodium (Depakote Er) 1,500 mg HS PO Last administered on 08/25/18 19:26; Start 06/21/18 at 21:00 Non-Formulary Medication (Gabapentin ) 800 mg QID PO ; Start 06/21/18 at 21:00 ; Status UNV Levothyroxine Sodium (Synthroid) 50 mcg DAILY06 PO Last administered on 05:01; Start 06/22/18 at 06:00 Multivitamins/ Calcium (Thera-M Plus) 1 tab DAILY PO Last administered on 08:04; Start 06/22/18 at 09:00 Olanzapine (ZyPREXA ZYDIS) 2.5 mg PRN Q2HR PRN PO PSYCHOSIS Last administered on 08/10/18 20:19; Start 06/21/18 at 20:45 Olanzapine (ZyPREXA) 5 mg BID PO Last administered on 06/23/18 08:47; Start 06/21/18 at 21:00; Stop 06/23/18 at 17:06; Status DC Risperidone (RisperDAL) 1.5 mg HS PO Last administered on 06/23/18 19:45; Start 06/21/18 at 21:00; Stop 06/24/18 at 11:06; Status DC Trazodone HCl (Desyrel) 50 mg PRN QHS PRN PO INSOMNIA Last administered on 20:19; Start 06/21/18 at 21:00; Stop 08/10/18 at 21:07; Status DC Nicotine (Nicoderm Cq 7mg) 1 patch PRN DAILY PRN TD SMOKING CESSATION; Start 06/21/18 at 23:30; Stop 07/09/18 at 05:39; Status DC Vitamin D (Vitamin D3) 50,000 unit WEEKLY PO Last administered on 08/25/18at 08: 06; Start 06/23/18 at 16:30 Olanzapine (ZyPREXA) 5 mg DAILY PO Last administered on 06/25/18at 08:04; Start 06/24/18 at 09:00; Stop 06/26/18 at 00:00; Status DC Risperidone (RisperDAL) 1.75 mg HS PO Last administered on 07/06/18at 20:08; Start 06/24/18 at 21:00; Stop 07/07/18 at 12:40; Status DC Risperidone (RisperDAL) 2 mg HS PO Last administered on 08/10/18at 20:15; Start 07/07/18 at 21:00; Stop 08/10/18 at 21:07; Status DC Gabapentin (Neurontin) 600 mg QID PO Last administered on 08/25/18at 19:27; Start 07/08/18 at 21:00 Nicotine (Nicoderm Cq 21mg) 1 patch DAILY TD Last administered on 07/30/18at 08 :54; Start 07/09/18 at 09:00; Stop 07/31/18 at 04:33; Status DC Clozapine (Clozaril) 25 mg DAILY PO Last administered on 07/27/18at 09:38; Start 07/13/18 at 09:00; Stop 07/27/18 at 16:52; Status DC Vitamin D (Vitamin D3) 50,000 unit WEEKLY PO ; Start 07/24/18 at 09:00; Status Cancel Clozapine (Clozaril) 50 mg DAILY PO Last administered on 08/03/18at 07:51; Start 07/28/18 at 09:00; Stop 08/03/18 at 21:09; Status DC Nicotine (Nicoderm Cq 21mg) 1 patch PRN DAILY PRN TD SMOKING CESSATION Last administered on 08/20/18at 09:30; Start 07/31/18 at 04:45; Stop 08/21/18 at 10: 24; Status DC Clozapine (Clozaril) 75 mg HS PO Last administered on 08/08/18at 19:36; Start 08/04/18 at 21:00; Stop 08/09/18 at 17:33; Status DC Clozapine (Clozaril) 25 mg 1X ONCE PO Last administered on 08/03/18at 21:25; Start 08/03/18 at 21:30; Stop 08/03/18 at 21:31; Status DC Clozapine (Clozaril) 100 mg QHS PO Last administered on 08/15/18at 20:03; Start 08/09/18 at 21:00; Stop 08/16/18 at 16:48; Status DC Risperidone (RisperDAL) 1.5 mg HS PO Last administered on 08/16/18at 19:21; Start 08/11/18 at 21:00; Stop 08/17/18 at 16:27; Status DC Trazodone HCl (Desyrel) 50 mg QHS PO ; Start 08/11/18 at 21:00; Stop 08/11/18 at 21:00; Status DC Ondansetron HCl (Zofran Odt) 4 mg PRN Q8HRS PRN PO NAUSEA/VOMITING Last administered on 08/12/18at 11:11; Start 08/12/18 at 10:45; Stop 08/12/18 at 16:29; Status DC Ondansetron HCl (Zofran Odt) 4 mg PRN Q4HRS PRN PO NAUSEA/VOMITING Last administered on 08/13/18at 08:20; Start 08/12/18 at 16:30 Clonazepam (KlonoPIN) 0.75 mg DAILY PO Last administered on 08/25/18at 08:06; Start 08/15/18 at 09:00 Clonazepam (KlonoPIN) 1 mg HS PO Last administered on 08/16/18at 19:26; Start 08/15/18 at 21:00; Stop 08/16/18 at 21:00; Status DC Clonazepam (KlonoPIN) 0.75 mg HS PO Last administered on 08/25/18at 19:30; Start 08/17/18 at 21:00 Clozapine (Clozaril) 125 mg QHS PO Last administered on 08/22/18at 19:46; Start 08/16/18 at 21:00; Stop 08/23/18 at 16:56; Status DC Iohexol (Omnipaque 300 Mg/ml) 75 ml 1X ONCE IV ; Start 08/16/18 at 18:15; Stop 08/16/18 at 18:16; Status DC Iohexol (Omnipaque 300 Mg/ml) 75 ml 1X ONCE IV Last administered on 08/17/18at 09:12; Start 08/17/18 at 08:00; Stop 08/17/18 at 08:01; Status DC Iohexol (Omnipaque 300 Mg/ml) 75 ml 1X ONCE IV ; Start 08/17/18 at 09:00; Stop 08/17/18 at 09:02; Status DC Risperidone (RisperDAL) 1 mg QHS PO Last administered on 08/22/18at 19:46; Start 08/17/18 at 21:00; Stop 08/23/18 at 16:56; Status DC Nicotine (Nicoderm Cq 21mg) 1 patch DAILY TD Last administered on 08/25/18at 08: 03; Start 08/21/18 at 10:30 Clozapine (Clozaril) 150 mg QHS PO Last administered on 08/25/18 19:27; Start 08/23/18 at 21:00 Risperidone (RisperDAL) 0.5 mg HS PO Last administered on 08/25/18at 19:28; Start 08/23/18 at 21:00 Active Scripts Active Reported Zyprexa (Olanzapine) 5 Mg Tablet 5 Mg PO BID NICODERM CQ 7mg (Nicotine) 1 Each Patch.td24 1 Patch TD PRN DAILY PRN Trazodone Hcl 50 Mg Tablet 50 Mg PO PRN QHS PRN Risperdal (Risperidone) 1 Mg Tablet 1.5 Mg PO HS Analgesic [place] (Methyl Salicylate/Menthol) 28 Gm Oint...g. 1 Gerri TP PRN QID PRN Milk Of Magnesia (Magnesium Hydroxide) 400 Mg/5 Ml Oral.susp 400 Mg PO PRN DAILY PRN Mag-Al Plus Xs Suspension (Mag Hydrox/Al Hydrox/Simeth) 30 Ml Oral.susp 15 Ml PO PRN AFTMEALHC PRN Buspirone Hcl 10 Mg Tablet 10 Mg PO TID Baclofen 10 Mg Tablet 10 Mg PO QID Gabapentin 100 Mg Capsule 100 Mg PO QID Gabapentin 800 Mg Tablet 800 Mg PO QID Levothyroxine Sodium 50 Mcg Tablet 50 Mcg PO DAILYAC Klonopin (Clonazepam) 0.5 Mg Tablet 1 Mg PO BID Norvasc (Amlodipine Besylate) 10 Mg Tablet 10 Mg PO DAILY Oxybutynin Chloride 5 Mg Tablet 2.5 Mg PO BID Depakote Er (Divalproex Sodium) 500 Mg Tab.er.24h 1,500 Mg PO HS Klor-Con M20 (Potassium Chloride) 20 Meq Tab.er.prt 20 Meq PO DAILY Cymbalta (Duloxetine Hcl) 60 Mg Capsule.dr 60 Mg PO DAILY Multivitamin with Iron Tablet (Multivitamin/Iron/Folic Acid) 1 Each Tablet 1 Tab PO DAILY Flomax (Tamsulosin Hcl) 0.4 Mg Cap.er.24h 0.8 Mg PO DAILY Olanzapine 5 Mg Tablet 2.5 Mg PO PRN Q2HR PRN MDD 10mg/ 24 hrs Remeron (Mirtazapine) 15 Mg Tablet 7.5 Mg PO HS Bisacodyl 10 Mg Supp.rect 10 Mg RC PRN DAILY PRN Tylenol (Acetaminophen) 325 Mg Tablet 650 Mg PO PRN Q6HRS PRN I have reviewed the current psychotropics carefully including drug interactions. Risk benefit ratio favors no change other than as noted in my dictated progress note. Diagnosis: Problems: (1) Depression (2) Schizoaffective disorder (3) Anxiety disorder (4) Impulse control disorder (5) Schizophrenia, paranoid, chronic with acute exacerbation CATHY EMERY MD Aug 25, 2018 22:43
[2018-08-26] MEDS: ACETAMINOPHEN 325 MG TABLET PO PRN (01:17)
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
[2018-08-26 05:15] VITALS: BP 136/80
[2018-08-26] MEDS: LEVOTHYROXINE 50 MCG TABLET PO SCH (05:59)
[2018-08-26] MEDS: busPIRone 10 MG TABLET. PO SCH ×3 (07:13→19:35)
[2018-08-26] MEDS: OXYBUTYNIN CHLORIDE 5 MG TABLET PO SCH ×2 (07:13→19:35)
[2018-08-26] MEDS: TAMSULOSIN 0.4 MG CAP.ER.24H. PO SCH (07:14)
[2018-08-26] MEDS: GABAPENTIN 300 MG CAPSULE. PO SCH ×4 (07:14→19:35)
[2018-08-26] MEDS: POTASSIUM CHLORIDE 20 MEQ TABLET.ER. PO SCH (07:14)
[2018-08-26] MEDS: amLODIPine BESYLATE 10 MG TABLET PO SCH (07:15)
[2018-08-26] MEDS: NICOTINE 21MG PATCH. TD SCH (07:16)
[2018-08-26] MEDS: MULTIVITAMIN with MINERAL TABLET. PO SCH (07:16)
[2018-08-26] MEDS: clonazePAM 0.5 MG TABLET PO SCH ×2 (07:18→19:40)
[2018-08-26] MEDS: METHYL SALICYLATE/MENTHOL TOPICAL OINTMENT 29GM TUBE. TP PRN (11:32)
[2018-08-26 15:52] VITALS: BP 138/78
[2018-08-26] MEDS: risperiDONE 0.5 MG TABLET. PO SCH (19:35)
[2018-08-26] MEDS: DIVALPROEX ER 500 MG TAB.ER.24H PO SCH (19:36)
[2018-08-26] MEDS: cloZAPine 100 MG TABLET PO SCH (19:39)
--- NOTE | 2018-08-26 22:31 | PN ---
DATE: 08/25/2018 This late entry of 08/25/2018 covers elements not covered in my initial note. SUBJECTIVE: I met with the patient in the evening. Overall, the patient slept 8-1/2 hours previous night. He was compliant last night, cooperative, somewhat withdrawn, obsessive laura, has a tendency to laura different things, spends much time in his room, which is where I met with him. He is compliant with his medications. REVIEW OF SYSTEMS: Ambulation impaired with walker. No CV, , pulmonary, eye system symptoms on review. MENTAL STATUS EXAM: Oriented to himself and situation. Speech is coherent, has some latency. Abstraction fair, computation impaired, language function intact, attention span short. Mood and affect still somewhat withdrawn, but much less psychotic. LABORATORY DATA: Reviewed. IMPRESSION: Schizoaffective disorder, bipolar type, mixed with psychotic features, in partial remission. Rest unchanged. PLAN: No change from initial note. Continue to gradually increase the Clozaril and reduce the Risperdal simultaneously while awaiting placement being secured by social service staff in a level 2 facility. CATHY EMERY MD DR: SARINA/nilda JOB#: [id number] / [id number]
--- NOTE | 2018-08-26 23:13 | PDOC ---
Exam Note: Nguyễn Note: Please also refer to the separate dictated note~for this date of service dictated separately.~Patient seen individually. Discussed the patient with Nursing staff reviewed the chart.~Reviewed interim history and current functioning. Reviewed vital signs,~Labs/ Radiology~and current medications noted below. Continue current treatment with the changes noted in the dictated addendum note Assessment: Vital Signs: Vital Signs Date Time Temp Pulse Resp B/P (MAP) Pulse Ox O2 Delivery O2 Flow Rate FiO2 08/26/18 15:52 97.8 91 20 138/78 (98) 98 Room Air I&O Intake and Output 08/26/18 07:01 Intake Total 1080 ml Balance 1080 ml Intake Oral 1080 ml Current Medications: Meds: Current Medications Acetaminophen (Tylenol) 650 mg PRN Q6HRS PRN PO PAIN / TEMP Last administered on 08/26/18 01:17; Start 06/21/18 at 20:15 Clonazepam (KlonoPIN) 1 mg BID PO Last administered on 08/14/18 19:19; Start 06/21/18 at 21:00; Stop 08/14/18 at 21:25; Status DC Gabapentin (Neurontin) 900 mg QID PO Last administered on 07/08/18at 16:58; Start 06/21/18 at 21:00; Stop 07/08/18 at 17:47; Status DC Al Hydroxide/Mg Hydroxide (Mylanta Plus Xs) 15 ml PRN AFTMEALHC PRN PO GI SYMPTOMS Last administered on 08/22/18 09:18; Start 06/21/18 at 20:15 Magnesium Hydroxide (Milk Of Magnesia) 400 mg PRN DAILY PRN PO CONSTIPATION Last administered on 08/12/18 19:23; Start 06/21/18 at 20:15 Multi-Ingredient Ointment (Analgesic [place]) 1 gerri PRN QID PRN TP MUSCLE PAIN Last administered on 08/26/18 11:32; Start 06/21/18 at 20:15 Oxybutynin Chloride (Ditropan) 2.5 mg BID PO Last administered on 08/26/18 19: 35; Start 06/21/18 at 21:00 Potassium Chloride (Klor-Con) 20 meq DAILY PO Last administered on 08/26/18 07 :14; Start 06/22/18 at 09:00 Tamsulosin HCl (Flomax) 0.8 mg DAILY PO Last administered on 08/26/18 07:14; Start 06/22/18 at 09:00 Amlodipine Besylate (Norvasc) 10 mg DAILY PO Last administered on 08/26/18 07: 15; Start 06/22/18 at 09:00 Baclofen (Lioresal) 10 mg QID PO Last administered on 07/07/18 19:36; Start 06/21/18 at 21:00; Stop 07/08/18 at 11:48; Status DC Bisacodyl (Dulcolax Supp) 10 mg PRN DAILY PRN [place] CONSTIPATION; Start 06/21/18 at 20:45 Buspirone HCl (Buspar) 10 mg TID PO Last administered on 08/26/18 19:35; Start 06/21/18 at 21:00 Divalproex Sodium (Depakote Er) 1,500 mg HS PO Last administered on 08/26/18 19:36; Start 06/21/18 at 21:00 Non-Formulary Medication (Gabapentin ) 800 mg QID PO ; Start 06/21/18 at 21:00 ; Status UNV Levothyroxine Sodium (Synthroid) 50 mcg DAILY06 PO Last administered on 05:59; Start 06/22/18 at 06:00 Multivitamins/ Calcium (Thera-M Plus) 1 tab DAILY PO Last administered on 07:16; Start 06/22/18 at 09:00 Olanzapine (ZyPREXA ZYDIS) 2.5 mg PRN Q2HR PRN PO PSYCHOSIS Last administered on 08/10/18 20:19; Start 06/21/18 at 20:45 Olanzapine (ZyPREXA) 5 mg BID PO Last administered on 06/23/18 08:47; Start 06/21/18 at 21:00; Stop 06/23/18 at 17:06; Status DC Risperidone (RisperDAL) 1.5 mg HS PO Last administered on 06/23/18 19:45; Start 06/21/18 at 21:00; Stop 06/24/18 at 11:06; Status DC Trazodone HCl (Desyrel) 50 mg PRN QHS PRN PO INSOMNIA Last administered on 20:19; Start 06/21/18 at 21:00; Stop 08/10/18 at 21:07; Status DC Nicotine (Nicoderm Cq 7mg) 1 patch PRN DAILY PRN TD SMOKING CESSATION; Start 06/21/18 at 23:30; Stop 07/09/18 at 05:39; Status DC Vitamin D (Vitamin D3) 50,000 unit WEEKLY PO Last administered on 08/25/18at 08: 06; Start 06/23/18 at 16:30 Olanzapine (ZyPREXA) 5 mg DAILY PO Last administered on 06/25/18at 08:04; Start 06/24/18 at 09:00; Stop 06/26/18 at 00:00; Status DC Risperidone (RisperDAL) 1.75 mg HS PO Last administered on 07/06/18at 20:08; Start 06/24/18 at 21:00; Stop 07/07/18 at 12:40; Status DC Risperidone (RisperDAL) 2 mg HS PO Last administered on 08/10/18at 20:15; Start 07/07/18 at 21:00; Stop 08/10/18 at 21:07; Status DC Gabapentin (Neurontin) 600 mg QID PO Last administered on 08/26/18at 19:35; Start 07/08/18 at 21:00 Nicotine (Nicoderm Cq 21mg) 1 patch DAILY TD Last administered on 07/30/18at 08 :54; Start 07/09/18 at 09:00; Stop 07/31/18 at 04:33; Status DC Clozapine (Clozaril) 25 mg DAILY PO Last administered on 07/27/18at 09:38; Start 07/13/18 at 09:00; Stop 07/27/18 at 16:52; Status DC Vitamin D (Vitamin D3) 50,000 unit WEEKLY PO ; Start 07/24/18 at 09:00; Status Cancel Clozapine (Clozaril) 50 mg DAILY PO Last administered on 08/03/18at 07:51; Start 07/28/18 at 09:00; Stop 08/03/18 at 21:09; Status DC Nicotine (Nicoderm Cq 21mg) 1 patch PRN DAILY PRN TD SMOKING CESSATION Last administered on 08/20/18at 09:30; Start 07/31/18 at 04:45; Stop 08/21/18 at 10: 24; Status DC Clozapine (Clozaril) 75 mg HS PO Last administered on 08/08/18at 19:36; Start 08/04/18 at 21:00; Stop 08/09/18 at 17:33; Status DC Clozapine (Clozaril) 25 mg 1X ONCE PO Last administered on 08/03/18at 21:25; Start 08/03/18 at 21:30; Stop 08/03/18 at 21:31; Status DC Clozapine (Clozaril) 100 mg QHS PO Last administered on 08/15/18at 20:03; Start 08/09/18 at 21:00; Stop 08/16/18 at 16:48; Status DC Risperidone (RisperDAL) 1.5 mg HS PO Last administered on 08/16/18at 19:21; Start 08/11/18 at 21:00; Stop 08/17/18 at 16:27; Status DC Trazodone HCl (Desyrel) 50 mg QHS PO ; Start 08/11/18 at 21:00; Stop 08/11/18 at 21:00; Status DC Ondansetron HCl (Zofran Odt) 4 mg PRN Q8HRS PRN PO NAUSEA/VOMITING Last administered on 08/12/18at 11:11; Start 08/12/18 at 10:45; Stop 08/12/18 at 16:29; Status DC Ondansetron HCl (Zofran Odt) 4 mg PRN Q4HRS PRN PO NAUSEA/VOMITING Last administered on 08/13/18 08:20; Start 08/12/18 at 16:30 Clonazepam (KlonoPIN) 0.75 mg DAILY PO Last administered on 08/26/18at 07:18; Start 08/15/18 at 09:00 Clonazepam (KlonoPIN) 1 mg HS PO Last administered on 08/16/18 19:26; Start 08/15/18 at 21:00; Stop 08/16/18 at 21:00; Status DC Clonazepam (KlonoPIN) 0.75 mg HS PO Last administered on 08/26/18at 19:40; Start 08/17/18 at 21:00 Clozapine (Clozaril) 125 mg QHS PO Last administered on 08/22/18 19:46; Start 08/16/18 at 21:00; Stop 08/23/18 at 16:56; Status DC Iohexol (Omnipaque 300 Mg/ml) 75 ml 1X ONCE IV ; Start 08/16/18 at 18:15; Stop 08/16/18 at 18:16; Status DC Iohexol (Omnipaque 300 Mg/ml) 75 ml 1X ONCE IV Last administered on 08/17/18at 09:12; Start 08/17/18 at 08:00; Stop 08/17/18 at 08:01; Status DC Iohexol (Omnipaque 300 Mg/ml) 75 ml 1X ONCE IV ; Start 08/17/18 at 09:00; Stop 08/17/18 at 09:02; Status DC Risperidone (RisperDAL) 1 mg QHS PO Last administered on 08/22/18at 19:46; Start 08/17/18 at 21:00; Stop 08/23/18 at 16:56; Status DC Nicotine (Nicoderm Cq 21mg) 1 patch DAILY TD Last administered on 08/26/18at 07: 16; Start 08/21/18 at 10:30 Clozapine (Clozaril) 150 mg QHS PO Last administered on 08/26/18at 19:39; Start 08/23/18 at 21:00 Risperidone (RisperDAL) 0.5 mg HS PO Last administered on 08/26/18at 19:35; Start 08/23/18 at 21:00 Active Scripts Active Reported Zyprexa (Olanzapine) 5 Mg Tablet 5 Mg PO BID NICODERM CQ 7mg (Nicotine) 1 Each Patch.td24 1 Patch TD PRN DAILY PRN Trazodone Hcl 50 Mg Tablet 50 Mg PO PRN QHS PRN Risperdal (Risperidone) 1 Mg Tablet 1.5 Mg PO HS Analgesic [place] (Methyl Salicylate/Menthol) 28 Gm Oint...g. 1 Gerri TP PRN QID PRN Milk Of Magnesia (Magnesium Hydroxide) 400 Mg/5 Ml Oral.susp 400 Mg PO PRN DAILY PRN Mag-Al Plus Xs Suspension (Mag Hydrox/Al Hydrox/Simeth) 30 Ml Oral.susp 15 Ml PO PRN AFTMEALHC PRN Buspirone Hcl 10 Mg Tablet 10 Mg PO TID Baclofen 10 Mg Tablet 10 Mg PO QID Gabapentin 100 Mg Capsule 100 Mg PO QID Gabapentin 800 Mg Tablet 800 Mg PO QID Levothyroxine Sodium 50 Mcg Tablet 50 Mcg PO DAILYAC Klonopin (Clonazepam) 0.5 Mg Tablet 1 Mg PO BID Norvasc (Amlodipine Besylate) 10 Mg Tablet 10 Mg PO DAILY Oxybutynin Chloride 5 Mg Tablet 2.5 Mg PO BID Depakote Er (Divalproex Sodium) 500 Mg Tab.er.24h 1,500 Mg PO HS Klor-Con M20 (Potassium Chloride) 20 Meq Tab.er.prt 20 Meq PO DAILY Cymbalta (Duloxetine Hcl) 60 Mg Capsule.dr 60 Mg PO DAILY Multivitamin with Iron Tablet (Multivitamin/Iron/Folic Acid) 1 Each Tablet 1 Tab PO DAILY Flomax (Tamsulosin Hcl) 0.4 Mg Cap.er.24h 0.8 Mg PO DAILY Olanzapine 5 Mg Tablet 2.5 Mg PO PRN Q2HR PRN MDD 10mg/ 24 hrs Remeron (Mirtazapine) 15 Mg Tablet 7.5 Mg PO HS Bisacodyl 10 Mg Supp.rect 10 Mg RC PRN DAILY PRN Tylenol (Acetaminophen) 325 Mg Tablet 650 Mg PO PRN Q6HRS PRN I have reviewed the current psychotropics carefully including drug interactions. Risk benefit ratio favors no change other than as noted in my dictated progress note. Diagnosis: Problems: (1) Depression (2) Schizoaffective disorder (3) Anxiety disorder (4) Impulse control disorder (5) Schizophrenia, paranoid, chronic with acute exacerbation CATHY EMERY MD Aug 26, 2018 23:13
[2018-08-27] MEDS: LEVOTHYROXINE 50 MCG TABLET PO SCH (05:03)
[2018-08-27 05:46] VITALS: BP 153/93
[2018-08-27] MEDS: NICOTINE 21MG PATCH. TD SCH (07:48)
[2018-08-27] MEDS: OXYBUTYNIN CHLORIDE 5 MG TABLET PO SCH ×2 (07:49→19:40)
[2018-08-27] MEDS: amLODIPine BESYLATE 10 MG TABLET PO SCH (07:49)
[2018-08-27] MEDS: POTASSIUM CHLORIDE 20 MEQ TABLET.ER. PO SCH (07:49)
[2018-08-27] MEDS: TAMSULOSIN 0.4 MG CAP.ER.24H. PO SCH (07:49)
[2018-08-27] MEDS: MULTIVITAMIN with MINERAL TABLET. PO SCH (07:50)
[2018-08-27] MEDS: GABAPENTIN 300 MG CAPSULE. PO SCH ×4 (07:50→19:40)
[2018-08-27] MEDS: busPIRone 10 MG TABLET. PO SCH ×3 (07:50→19:40)
[2018-08-27] MEDS: clonazePAM 0.5 MG TABLET PO SCH ×2 (07:54→19:42)
[2018-08-27 16:16] VITALS: BP 105/71
[2018-08-27] MEDS: cloZAPine 100 MG TABLET PO SCH (19:40)
[2018-08-27] MEDS: risperiDONE 0.5 MG TABLET. PO SCH (19:41)
[2018-08-27] MEDS: DIVALPROEX ER 500 MG TAB.ER.24H PO SCH (19:41)
--- NOTE | 2018-08-27 20:44 | PN ---
DATE: 08/26/2018 This late entry for 08/26/2018 covers elements not covered in my initial note. SUBJECTIVE: I met with the patient in the evening and staffed at a treatment team meeting with the entire team in the morning and discussed disposition plans with social service staff who are actively engaged in getting him approved for a level 2 facility. He slept 6-3/4 hours previous evening. REVIEW OF SYSTEMS: Ambulation impaired with walker. No CV, , pulmonary, eye, ENT system symptoms on review. MENTAL STATUS EXAMINATION: Oriented to himself and situation. Speech is coherent, has some latency. Abstraction fair, computation impaired, language function intact, attention span short. Mood and affect somewhat withdrawn, less psychotic. LABORATORY DATA: Reviewed. IMPRESSION: Schizoaffective disorder, bipolar type, mixed with psychotic features. Rest unchanged. PLAN: Continue current psychotropics. Continue to gradually increase Clozaril, expedite transition to nursing facility level 2 per social service staff. MAN Ty EMERY MD DR: SARINA/nilda JOB#: [id number] / [id number]
--- NOTE | 2018-08-27 23:57 | PDOC ---
Exam Note: Nguyễn Note: Please also refer to the separate dictated note~for this date of service dictated separately.~Patient seen individually. Discussed the patient with Nursing staff reviewed the chart.~Reviewed interim history and current functioning. Reviewed vital signs,~Labs/ Radiology~and current medications noted below. Continue current treatment with the changes noted in the dictated addendum note Assessment: Vital Signs: Vital Signs Date Time Temp Pulse Resp B/P (MAP) Pulse Ox O2 Delivery O2 Flow Rate FiO2 08/27/18 16:16 98.2 79 20 105/71 (82) 96 Room Air I&O Intake and Output 08/27/18 07:01 Intake Total 1090 ml Balance 1090 ml Intake Oral 1090 ml Current Medications: Meds: Current Medications Acetaminophen (Tylenol) 650 mg PRN Q6HRS PRN PO PAIN / TEMP Last administered on 08/26/18 01:17; Start 06/21/18 at 20:15 Clonazepam (KlonoPIN) 1 mg BID PO Last administered on 08/14/18 19:19; Start 06/21/18 at 21:00; Stop 08/14/18 at 21:25; Status DC Gabapentin (Neurontin) 900 mg QID PO Last administered on 07/08/18at 16:58; Start 06/21/18 at 21:00; Stop 07/08/18 at 17:47; Status DC Al Hydroxide/Mg Hydroxide (Mylanta Plus Xs) 15 ml PRN AFTMEALHC PRN PO GI SYMPTOMS Last administered on 08/22/18 09:18; Start 06/21/18 at 20:15 Magnesium Hydroxide (Milk Of Magnesia) 400 mg PRN DAILY PRN PO CONSTIPATION Last administered on 08/12/18 19:23; Start 06/21/18 at 20:15 Multi-Ingredient Ointment (Analgesic [place]) 1 gerri PRN QID PRN TP MUSCLE PAIN Last administered on 08/26/18 11:32; Start 06/21/18 at 20:15 Oxybutynin Chloride (Ditropan) 2.5 mg BID PO Last administered on 08/27/18 19: 40; Start 06/21/18 at 21:00 Potassium Chloride (Klor-Con) 20 meq DAILY PO Last administered on 08/27/18 07 :49; Start 06/22/18 at 09:00 Tamsulosin HCl (Flomax) 0.8 mg DAILY PO Last administered on 08/27/18 07:49; Start 06/22/18 at 09:00 Amlodipine Besylate (Norvasc) 10 mg DAILY PO Last administered on 08/27/18 07: 49; Start 06/22/18 at 09:00 Baclofen (Lioresal) 10 mg QID PO Last administered on 07/07/18 19:36; Start 06/21/18 at 21:00; Stop 07/08/18 at 11:48; Status DC Bisacodyl (Dulcolax Supp) 10 mg PRN DAILY PRN [place] CONSTIPATION; Start 06/21/18 at 20:45 Buspirone HCl (Buspar) 10 mg TID PO Last administered on 08/27/18 19:40; Start 06/21/18 at 21:00 Divalproex Sodium (Depakote Er) 1,500 mg HS PO Last administered on 08/27/18 19:41; Start 06/21/18 at 21:00 Non-Formulary Medication (Gabapentin ) 800 mg QID PO ; Start 06/21/18 at 21:00 ; Status UNV Levothyroxine Sodium (Synthroid) 50 mcg DAILY06 PO Last administered on 05:03; Start 06/22/18 at 06:00 Multivitamins/ Calcium (Thera-M Plus) 1 tab DAILY PO Last administered on 07:50; Start 06/22/18 at 09:00 Olanzapine (ZyPREXA ZYDIS) 2.5 mg PRN Q2HR PRN PO PSYCHOSIS Last administered on 08/10/18 20:19; Start 06/21/18 at 20:45 Olanzapine (ZyPREXA) 5 mg BID PO Last administered on 06/23/18at 08:47; Start 06/21/18 at 21:00; Stop 06/23/18 at 17:06; Status DC Risperidone (RisperDAL) 1.5 mg HS PO Last administered on 06/23/18at 19:45; Start 06/21/18 at 21:00; Stop 06/24/18 at 11:06; Status DC Trazodone HCl (Desyrel) 50 mg PRN QHS PRN PO INSOMNIA Last administered on 20:19; Start 06/21/18 at 21:00; Stop 08/10/18 at 21:07; Status DC Nicotine (Nicoderm Cq 7mg) 1 patch PRN DAILY PRN TD SMOKING CESSATION; Start 06/21/18 at 23:30; Stop 07/09/18 at 05:39; Status DC Vitamin D (Vitamin D3) 50,000 unit WEEKLY PO Last administered on 08/25/18at 08: 06; Start 06/23/18 at 16:30 Olanzapine (ZyPREXA) 5 mg DAILY PO Last administered on 06/25/18at 08:04; Start 06/24/18 at 09:00; Stop 06/26/18 at 00:00; Status DC Risperidone (RisperDAL) 1.75 mg HS PO Last administered on 07/06/18at 20:08; Start 06/24/18 at 21:00; Stop 07/07/18 at 12:40; Status DC Risperidone (RisperDAL) 2 mg HS PO Last administered on 08/10/18at 20:15; Start 07/07/18 at 21:00; Stop 08/10/18 at 21:07; Status DC Gabapentin (Neurontin) 600 mg QID PO Last administered on 08/27/18at 19:40; Start 07/08/18 at 21:00 Nicotine (Nicoderm Cq 21mg) 1 patch DAILY TD Last administered on 07/30/18at 08 :54; Start 07/09/18 at 09:00; Stop 07/31/18 at 04:33; Status DC Clozapine (Clozaril) 25 mg DAILY PO Last administered on 07/27/18at 09:38; Start 07/13/18 at 09:00; Stop 07/27/18 at 16:52; Status DC Vitamin D (Vitamin D3) 50,000 unit WEEKLY PO ; Start 07/24/18 at 09:00; Status Cancel Clozapine (Clozaril) 50 mg DAILY PO Last administered on 08/03/18at 07:51; Start 07/28/18 at 09:00; Stop 08/03/18 at 21:09; Status DC Nicotine (Nicoderm Cq 21mg) 1 patch PRN DAILY PRN TD SMOKING CESSATION Last administered on 08/20/18at 09:30; Start 07/31/18 at 04:45; Stop 08/21/18 at 10: 24; Status DC Clozapine (Clozaril) 75 mg HS PO Last administered on 08/08/18at 19:36; Start 08/04/18 at 21:00; Stop 08/09/18 at 17:33; Status DC Clozapine (Clozaril) 25 mg 1X ONCE PO Last administered on 08/03/18at 21:25; Start 08/03/18 at 21:30; Stop 08/03/18 at 21:31; Status DC Clozapine (Clozaril) 100 mg QHS PO Last administered on 08/15/18at 20:03; Start 08/09/18 at 21:00; Stop 08/16/18 at 16:48; Status DC Risperidone (RisperDAL) 1.5 mg HS PO Last administered on 08/16/18at 19:21; Start 08/11/18 at 21:00; Stop 08/17/18 at 16:27; Status DC Trazodone HCl (Desyrel) 50 mg QHS PO ; Start 08/11/18 at 21:00; Stop 08/11/18 at 21:00; Status DC Ondansetron HCl (Zofran Odt) 4 mg PRN Q8HRS PRN PO NAUSEA/VOMITING Last administered on 08/12/18at 11:11; Start 08/12/18 at 10:45; Stop 08/12/18 at 16:29; Status DC Ondansetron HCl (Zofran Odt) 4 mg PRN Q4HRS PRN PO NAUSEA/VOMITING Last administered on 08/13/18at 08:20; Start 08/12/18 at 16:30 Clonazepam (KlonoPIN) 0.75 mg DAILY PO Last administered on 08/27/18at 07:54; Start 08/15/18 at 09:00 Clonazepam (KlonoPIN) 1 mg HS PO Last administered on 08/16/18at 19:26; Start 08/15/18 at 21:00; Stop 08/16/18 at 21:00; Status DC Clonazepam (KlonoPIN) 0.75 mg HS PO Last administered on 08/27/18at 19:42; Start 08/17/18 at 21:00 Clozapine (Clozaril) 125 mg QHS PO Last administered on 08/22/18 19:46; Start 08/16/18 at 21:00; Stop 08/23/18 at 16:56; Status DC Iohexol (Omnipaque 300 Mg/ml) 75 ml 1X ONCE IV ; Start 08/16/18 at 18:15; Stop 08/16/18 at 18:16; Status DC Iohexol (Omnipaque 300 Mg/ml) 75 ml 1X ONCE IV Last administered on 08/17/18at 09:12; Start 08/17/18 at 08:00; Stop 08/17/18 at 08:01; Status DC Iohexol (Omnipaque 300 Mg/ml) 75 ml 1X ONCE IV ; Start 08/17/18 at 09:00; Stop 08/17/18 at 09:02; Status DC Risperidone (RisperDAL) 1 mg QHS PO Last administered on 08/22/18at 19:46; Start 08/17/18 at 21:00; Stop 08/23/18 at 16:56; Status DC Nicotine (Nicoderm Cq 21mg) 1 patch DAILY TD Last administered on 08/27/18at 07: 48; Start 08/21/18 at 10:30 Clozapine (Clozaril) 150 mg QHS PO Last administered on 08/27/18at 19:40; Start 08/23/18 at 21:00 Risperidone (RisperDAL) 0.5 mg HS PO Last administered on 08/27/18at 19:41; Start 08/23/18 at 21:00 Active Scripts Active Reported Zyprexa (Olanzapine) 5 Mg Tablet 5 Mg PO BID NICODERM CQ 7mg (Nicotine) 1 Each Patch.td24 1 Patch TD PRN DAILY PRN Trazodone Hcl 50 Mg Tablet 50 Mg PO PRN QHS PRN Risperdal (Risperidone) 1 Mg Tablet 1.5 Mg PO HS Analgesic [place] (Methyl Salicylate/Menthol) 28 Gm Oint...g. 1 Gerri TP PRN QID PRN Milk Of Magnesia (Magnesium Hydroxide) 400 Mg/5 Ml Oral.susp 400 Mg PO PRN DAILY PRN Mag-Al Plus Xs Suspension (Mag Hydrox/Al Hydrox/Simeth) 30 Ml Oral.susp 15 Ml PO PRN AFTMEALHC PRN Buspirone Hcl 10 Mg Tablet 10 Mg PO TID Baclofen 10 Mg Tablet 10 Mg PO QID Gabapentin 100 Mg Capsule 100 Mg PO QID Gabapentin 800 Mg Tablet 800 Mg PO QID Levothyroxine Sodium 50 Mcg Tablet 50 Mcg PO DAILYAC Klonopin (Clonazepam) 0.5 Mg Tablet 1 Mg PO BID Norvasc (Amlodipine Besylate) 10 Mg Tablet 10 Mg PO DAILY Oxybutynin Chloride 5 Mg Tablet 2.5 Mg PO BID Depakote Er (Divalproex Sodium) 500 Mg Tab.er.24h 1,500 Mg PO HS Klor-Con M20 (Potassium Chloride) 20 Meq Tab.er.prt 20 Meq PO DAILY Cymbalta (Duloxetine Hcl) 60 Mg Capsule.dr 60 Mg PO DAILY Multivitamin with Iron Tablet (Multivitamin/Iron/Folic Acid) 1 Each Tablet 1 Tab PO DAILY Flomax (Tamsulosin Hcl) 0.4 Mg Cap.er.24h 0.8 Mg PO DAILY Olanzapine 5 Mg Tablet 2.5 Mg PO PRN Q2HR PRN MDD 10mg/ 24 hrs Remeron (Mirtazapine) 15 Mg Tablet 7.5 Mg PO HS Bisacodyl 10 Mg Supp.rect 10 Mg RC PRN DAILY PRN Tylenol (Acetaminophen) 325 Mg Tablet 650 Mg PO PRN Q6HRS PRN I have reviewed the current psychotropics carefully including drug interactions. Risk benefit ratio favors no change other than as noted in my dictated progress note. Diagnosis: Problems: (1) Depression (2) Schizoaffective disorder (3) Anxiety disorder (4) Impulse control disorder (5) Schizophrenia, paranoid, chronic with acute exacerbation CATHY EMERY MD Aug 27, 2018 23:57
[2018-08-28 05:28] VITALS: BP 120/84
[2018-08-28] MEDS: LEVOTHYROXINE 50 MCG TABLET PO SCH (05:36)
[2018-08-28] MEDS: GABAPENTIN 300 MG CAPSULE. PO SCH ×4 (08:17→19:53)
[2018-08-28] MEDS: OXYBUTYNIN CHLORIDE 5 MG TABLET PO SCH ×2 (08:17→19:53)
[2018-08-28] MEDS: busPIRone 10 MG TABLET. PO SCH ×3 (08:17→19:53)
[2018-08-28] MEDS: TAMSULOSIN 0.4 MG CAP.ER.24H. PO SCH (08:18)
[2018-08-28] MEDS: POTASSIUM CHLORIDE 20 MEQ TABLET.ER. PO SCH (08:19)
[2018-08-28] MEDS: clonazePAM 0.5 MG TABLET PO SCH ×2 (08:19→19:55)
[2018-08-28] MEDS: amLODIPine BESYLATE 10 MG TABLET PO SCH (08:20)
[2018-08-28] MEDS: NICOTINE 21MG PATCH. TD SCH (08:20)
[2018-08-28] MEDS: MULTIVITAMIN with MINERAL TABLET. PO SCH (08:20)
[2018-08-28 09:18] LABS: BASO # 0.1 x10^3/uL (0.0-0.2); BASO % 1 % (0-3); EOS # 0.3 x10^3/uL (0.0-0.7); EOS % 3 % (0-3); HEMATOCRIT 42.8 % (39.0-53.0); HEMOGLOBIN 14.2 g/dL (13.0-17.5); LYMPH % 23 % (24-48); MEAN CORPUSCULAR HEMOGLOBIN 29 pg (25-35); MEAN CORPUSCULAR HGB CONC 33 g/dL (31-37); MEAN CORPUSCULAR VOLUME 88 fL (79-100); MONO # 0.7 x10^3/uL (0.0-1.1); MONO % 8 % (0-9); NEUT # 5.7 x10^3uL (1.8-7.7); NEUT % 65 % (31-73); PLATELET COUNT 374 x10^3/uL (140-400); RED BLOOD COUNT 4.86 x10^6/uL (4.30-5.70); RED CELL DISTRIBUTION WIDTH 13.6 % (11.5-14.5); WHITE BLOOD COUNT 8.7 x10^3/uL (4.0-11.0)
[2018-08-28 09:28] LABS: ALBUMIN/GLOBULIN RATIO 0.7 (1.0-1.7); CALCIUM 8.7 mg/dL (8.5-10.1); CREATININE 0.6 mg/dL (0.7-1.3); GFR 138.9; POTASSIUM 3.9 mmol/L (3.5-5.1); TOTAL BILIRUBIN 0.3 mg/dL (0.2-1.0); TOTAL PROTEIN 7.3 g/dL (6.4-8.2)
[2018-08-28 15:33] VITALS: BP 131/77
[2018-08-28] MEDS: risperiDONE 0.5 MG TABLET. PO SCH (19:53)
[2018-08-28] MEDS: DIVALPROEX ER 500 MG TAB.ER.24H PO SCH (19:53)
[2018-08-28] MEDS: cloZAPine 100 MG TABLET PO SCH (19:54)
--- NOTE | 2018-08-29 | PDOC ---
Exam Note: Nguyễn Note: Please also refer to the separate dictated note~for this date of service dictated separately.~Patient seen individually. Discussed the patient with Nursing staff reviewed the chart.~Reviewed interim history and current functioning. Reviewed vital signs,~Labs/ Radiology~and current medications noted below. Continue current treatment with the changes noted in the dictated addendum note Assessment: Vital Signs: Vital Signs Date Time Temp Pulse Resp B/P (MAP) Pulse Ox O2 Delivery O2 Flow Rate FiO2 08/28/18 15:33 98.3 92 20 131/77 (95) 96 08/27/18 16:16 Room Air I&O Intake and Output 08/28/18 07:01 Intake Total 1300 ml Balance 1300 ml Intake Oral 1300 ml Labs: Laboratory Tests Test 08/28/18 09:02 White Blood Count 8.7 x10^3/uL (4.0-11.0) Red Blood Count 4.86 x10^6/uL (4.30-5.70) Hemoglobin 14.2 g/dL (13.0-17.5) Hematocrit 42.8 % (39.0-53.0) Mean Corpuscular Volume 88 fL (79-100) Mean Corpuscular Hemoglobin 29 pg (25-35) Mean Corpuscular Hemoglobin Concent 33 g/dL (31-37) Red Cell Distribution Width 13.6 % (11.5-14.5) Platelet Count 374 x10^3/uL (140-400) Neutrophils (%) (Auto) 65 % (31-73) Lymphocytes (%) (Auto) 23 % (24-48) L Monocytes (%) (Auto) 8 % (0-9) Eosinophils (%) (Auto) 3 % (0-3) Basophils (%) (Auto) 1 % (0-3) Neutrophils # (Auto) 5.7 x10^3uL (1.8-7.7) Lymphocytes # (Auto) 2.0 x10^3/uL (1.0-4.8) Monocytes # (Auto) 0.7 x10^3/uL (0.0-1.1) Eosinophils # (Auto) 0.3 x10^3/uL (0.0-0.7) Basophils # (Auto) 0.1 x10^3/uL (0.0-0.2) Sodium Level 137 mmol/L (136-145) Potassium Level 3.9 mmol/L (3.5-5.1) Chloride Level 99 mmol/L (98-107) Carbon Dioxide Level 28 mmol/L (21-32) Anion Gap 10 (6-14) Blood Urea Nitrogen 10 mg/dL (8-26) Creatinine 0.6 mg/dL (0.7-1.3) L Estimated GFR (Cockcroft-Gault) 138.9 BUN/Creatinine Ratio 17 (6-20) Glucose Level 141 mg/dL (70-99) H Calcium Level 8.7 mg/dL (8.5-10.1) Total Bilirubin 0.3 mg/dL (0.2-1.0) Aspartate Amino Transferase (AST) 20 U/L (15-37) Alanine Aminotransferase (ALT) 29 U/L (16-63) Alkaline Phosphatase 61 U/L (46-116) Total Protein 7.3 g/dL (6.4-8.2) Albumin 3.0 g/dL (3.4-5.0) L Albumin/Globulin Ratio 0.7 (1.0-1.7) L Current Medications: Meds: Current Medications Acetaminophen (Tylenol) 650 mg PRN Q6HRS PRN PO PAIN / TEMP Last administered on 08/26/18 01:17; Start 06/21/18 at 20:15 Clonazepam (KlonoPIN) 1 mg BID PO Last administered on 08/14/18 19:19; Start 06/21/18 at 21:00; Stop 08/14/18 at 21:25; Status DC Gabapentin (Neurontin) 900 mg QID PO Last administered on 07/08/18at 16:58; Start 06/21/18 at 21:00; Stop 07/08/18 at 17:47; Status DC Al Hydroxide/Mg Hydroxide (Mylanta Plus Xs) 15 ml PRN AFTMEALHC PRN PO GI SYMPTOMS Last administered on 08/22/18 09:18; Start 06/21/18 at 20:15 Magnesium Hydroxide (Milk Of Magnesia) 400 mg PRN DAILY PRN PO CONSTIPATION Last administered on 08/12/18 19:23; Start 06/21/18 at 20:15 Multi-Ingredient Ointment (Analgesic [place]) 1 gerri PRN QID PRN TP MUSCLE PAIN Last administered on 08/26/18 11:32; Start 06/21/18 at 20:15 Oxybutynin Chloride (Ditropan) 2.5 mg BID PO Last administered on 08/28/18 19: 53; Start 06/21/18 at 21:00 Potassium Chloride (Klor-Con) 20 meq DAILY PO Last administered on 08/28/18 08 :19; Start 06/22/18 at 09:00 Tamsulosin HCl (Flomax) 0.8 mg DAILY PO Last administered on 08/28/18 08:18; Start 06/22/18 at 09:00 Amlodipine Besylate (Norvasc) 10 mg DAILY PO Last administered on 08/28/18 08: 20; Start 06/22/18 at 09:00 Baclofen (Lioresal) 10 mg QID PO Last administered on 07/07/18 19:36; Start 06/21/18 at 21:00; Stop 07/08/18 at 11:48; Status DC Bisacodyl (Dulcolax Supp) 10 mg PRN DAILY PRN [place] CONSTIPATION; Start 06/21/18 at 20:45 Buspirone HCl (Buspar) 10 mg TID PO Last administered on 08/28/18 19:53; Start 06/21/18 at 21:00 Divalproex Sodium (Depakote Er) 1,500 mg HS PO Last administered on 08/28/18 19:53; Start 06/21/18 at 21:00 Non-Formulary Medication (Gabapentin ) 800 mg QID PO ; Start 06/21/18 at 21:00 ; Status UNV Levothyroxine Sodium (Synthroid) 50 mcg DAILY06 PO Last administered on 05:36; Start 06/22/18 at 06:00 Multivitamins/ Calcium (Thera-M Plus) 1 tab DAILY PO Last administered on 08:20; Start 06/22/18 at 09:00 Olanzapine (ZyPREXA ZYDIS) 2.5 mg PRN Q2HR PRN PO PSYCHOSIS Last administered on 08/10/18 20:19; Start 06/21/18 at 20:45 Olanzapine (ZyPREXA) 5 mg BID PO Last administered on 06/23/18at 08:47; Start 06/21/18 at 21:00; Stop 06/23/18 at 17:06; Status DC Risperidone (RisperDAL) 1.5 mg HS PO Last administered on 06/23/18at 19:45; Start 06/21/18 at 21:00; Stop 06/24/18 at 11:06; Status DC Trazodone HCl (Desyrel) 50 mg PRN QHS PRN PO INSOMNIA Last administered on 20:19; Start 06/21/18 at 21:00; Stop 08/10/18 at 21:07; Status DC Nicotine (Nicoderm Cq 7mg) 1 patch PRN DAILY PRN TD SMOKING CESSATION; Start 06/21/18 at 23:30; Stop 07/09/18 at 05:39; Status DC Vitamin D (Vitamin D3) 50,000 unit WEEKLY PO Last administered on 08/25/18 08: 06; Start 06/23/18 at 16:30 Olanzapine (ZyPREXA) 5 mg DAILY PO Last administered on 06/25/18at 08:04; Start 06/24/18 at 09:00; Stop 06/26/18 at 00:00; Status DC Risperidone (RisperDAL) 1.75 mg HS PO Last administered on 07/06/18at 20:08; Start 06/24/18 at 21:00; Stop 07/07/18 at 12:40; Status DC Risperidone (RisperDAL) 2 mg HS PO Last administered on 08/10/18at 20:15; Start 07/07/18 at 21:00; Stop 08/10/18 at 21:07; Status DC Gabapentin (Neurontin) 600 mg QID PO Last administered on 08/28/18at 19:53; Start 07/08/18 at 21:00 Nicotine (Nicoderm Cq 21mg) 1 patch DAILY TD Last administered on 07/30/18at 08 :54; Start 07/09/18 at 09:00; Stop 07/31/18 at 04:33; Status DC Clozapine (Clozaril) 25 mg DAILY PO Last administered on 07/27/18at 09:38; Start 07/13/18 at 09:00; Stop 07/27/18 at 16:52; Status DC Vitamin D (Vitamin D3) 50,000 unit WEEKLY PO ; Start 07/24/18 at 09:00; Status Cancel Clozapine (Clozaril) 50 mg DAILY PO Last administered on 08/03/18at 07:51; Start 07/28/18 at 09:00; Stop 08/03/18 at 21:09; Status DC Nicotine (Nicoderm Cq 21mg) 1 patch PRN DAILY PRN TD SMOKING CESSATION Last administered on 08/20/18at 09:30; Start 07/31/18 at 04:45; Stop 08/21/18 at 10: 24; Status DC Clozapine (Clozaril) 75 mg HS PO Last administered on 08/08/18at 19:36; Start 08/04/18 at 21:00; Stop 08/09/18 at 17:33; Status DC Clozapine (Clozaril) 25 mg 1X ONCE PO Last administered on 08/03/18at 21:25; Start 08/03/18 at 21:30; Stop 08/03/18 at 21:31; Status DC Clozapine (Clozaril) 100 mg QHS PO Last administered on 08/15/18at 20:03; Start 08/09/18 at 21:00; Stop 08/16/18 at 16:48; Status DC Risperidone (RisperDAL) 1.5 mg HS PO Last administered on 08/16/18at 19:21; Start 08/11/18 at 21:00; Stop 08/17/18 at 16:27; Status DC Trazodone HCl (Desyrel) 50 mg QHS PO ; Start 08/11/18 at 21:00; Stop 08/11/18 at 21:00; Status DC Ondansetron HCl (Zofran Odt) 4 mg PRN Q8HRS PRN PO NAUSEA/VOMITING Last administered on 08/12/18at 11:11; Start 08/12/18 at 10:45; Stop 08/12/18 at 16:29; Status DC Ondansetron HCl (Zofran Odt) 4 mg PRN Q4HRS PRN PO NAUSEA/VOMITING Last administered on 08/13/18 08:20; Start 08/12/18 at 16:30 Clonazepam (KlonoPIN) 0.75 mg DAILY PO Last administered on 08/28/18at 08:19; Start 08/15/18 at 09:00 Clonazepam (KlonoPIN) 1 mg HS PO Last administered on 08/16/18 19:26; Start 08/15/18 at 21:00; Stop 08/16/18 at 21:00; Status DC Clonazepam (KlonoPIN) 0.75 mg HS PO Last administered on 08/28/18at 19:55; Start 08/17/18 at 21:00 Clozapine (Clozaril) 125 mg QHS PO Last administered on 08/22/18 19:46; Start 08/16/18 at 21:00; Stop 08/23/18 at 16:56; Status DC Iohexol (Omnipaque 300 Mg/ml) 75 ml 1X ONCE IV ; Start 08/16/18 at 18:15; Stop 08/16/18 at 18:16; Status DC Iohexol (Omnipaque 300 Mg/ml) 75 ml 1X ONCE IV Last administered on 08/17/18at 09:12; Start 08/17/18 at 08:00; Stop 08/17/18 at 08:01; Status DC Iohexol (Omnipaque 300 Mg/ml) 75 ml 1X ONCE IV ; Start 08/17/18 at 09:00; Stop 08/17/18 at 09:02; Status DC Risperidone (RisperDAL) 1 mg QHS PO Last administered on 08/22/18 19:46; Start 08/17/18 at 21:00; Stop 08/23/18 at 16:56; Status DC Nicotine (Nicoderm Cq 21mg) 1 patch DAILY TD Last administered on 08/28/18at 08: 20; Start 08/21/18 at 10:30 Clozapine (Clozaril) 150 mg QHS PO Last administered on 08/28/18at 19:54; Start 08/23/18 at 21:00 Risperidone (RisperDAL) 0.5 mg HS PO Last administered on 08/28/18at 19:53; Start 08/23/18 at 21:00 Active Scripts Active Reported Zyprexa (Olanzapine) 5 Mg Tablet 5 Mg PO BID NICODERM CQ 7mg (Nicotine) 1 Each Patch.td24 1 Patch TD PRN DAILY PRN Trazodone Hcl 50 Mg Tablet 50 Mg PO PRN QHS PRN Risperdal (Risperidone) 1 Mg Tablet 1.5 Mg PO HS Analgesic [place] (Methyl Salicylate/Menthol) 28 Gm Oint...g. 1 Gerri TP PRN QID PRN Milk Of Magnesia (Magnesium Hydroxide) 400 Mg/5 Ml Oral.susp 400 Mg PO PRN DAILY PRN Mag-Al Plus Xs Suspension (Mag Hydrox/Al Hydrox/Simeth) 30 Ml Oral.susp 15 Ml PO PRN AFTMEALHC PRN Buspirone Hcl 10 Mg Tablet 10 Mg PO TID Baclofen 10 Mg Tablet 10 Mg PO QID Gabapentin 100 Mg Capsule 100 Mg PO QID Gabapentin 800 Mg Tablet 800 Mg PO QID Levothyroxine Sodium 50 Mcg Tablet 50 Mcg PO DAILYAC Klonopin (Clonazepam) 0.5 Mg Tablet 1 Mg PO BID Norvasc (Amlodipine Besylate) 10 Mg Tablet 10 Mg PO DAILY Oxybutynin Chloride 5 Mg Tablet 2.5 Mg PO BID Depakote Er (Divalproex Sodium) 500 Mg Tab.er.24h 1,500 Mg PO HS Klor-Con M20 (Potassium Chloride) 20 Meq Tab.er.prt 20 Meq PO DAILY Cymbalta (Duloxetine Hcl) 60 Mg Capsule.dr 60 Mg PO DAILY Multivitamin with Iron Tablet (Multivitamin/Iron/Folic Acid) 1 Each Tablet 1 Tab PO DAILY Flomax (Tamsulosin Hcl) 0.4 Mg Cap.er.24h 0.8 Mg PO DAILY Olanzapine 5 Mg Tablet 2.5 Mg PO PRN Q2HR PRN MDD 10mg/ 24 hrs Remeron (Mirtazapine) 15 Mg Tablet 7.5 Mg PO HS Bisacodyl 10 Mg Supp.rect 10 Mg RC PRN DAILY PRN Tylenol (Acetaminophen) 325 Mg Tablet 650 Mg PO PRN Q6HRS PRN I have reviewed the current psychotropics carefully including drug interactions. Risk benefit ratio favors no change other than as noted in my dictated progress note. Diagnosis: Problems: (1) Depression (2) Schizoaffective disorder (3) Anxiety disorder (4) Impulse control disorder (5) Schizophrenia, paranoid, chronic with acute exacerbation CATHY EMERY MD Aug 29, 2018 00:00
[2018-08-29] MEDS: LEVOTHYROXINE 50 MCG TABLET PO SCH (05:27)
[2018-08-29 05:51] VITALS: BP 121/89
[2018-08-29] MEDS: amLODIPine BESYLATE 10 MG TABLET PO SCH (07:47)
[2018-08-29] MEDS: POTASSIUM CHLORIDE 20 MEQ TABLET.ER. PO SCH (07:47)
[2018-08-29] MEDS: GABAPENTIN 300 MG CAPSULE. PO SCH ×4 (07:48→20:00)
[2018-08-29] MEDS: OXYBUTYNIN CHLORIDE 5 MG TABLET PO SCH ×2 (07:48→19:58)
[2018-08-29] MEDS: busPIRone 10 MG TABLET. PO SCH ×3 (07:48→20:01)
[2018-08-29] MEDS: MULTIVITAMIN with MINERAL TABLET. PO SCH (07:48)
[2018-08-29] MEDS: TAMSULOSIN 0.4 MG CAP.ER.24H. PO SCH (07:49)
[2018-08-29] MEDS: NICOTINE 21MG PATCH. TD SCH (07:49)
[2018-08-29] MEDS: clonazePAM 0.5 MG TABLET PO SCH ×2 (07:51→20:03)
[2018-08-29 15:40] VITALS: BP 116/78
[2018-08-29] MEDS: cloZAPine 100 MG TABLET PO SCH (19:58)
[2018-08-29] MEDS: risperiDONE 0.5 MG TABLET. PO SCH (20:00)
[2018-08-29] MEDS: DIVALPROEX ER 500 MG TAB.ER.24H PO SCH (20:01)
--- NOTE | 2018-08-29 22:33 | PDOC ---
Exam Note: Nguyễn Note: Please also refer to the separate dictated note~for this date of service dictated separately. Discussed the patient with Nursing staff reviewed the chart.~Reviewed interim history and current functioning. Reviewed vital signs,~ Labs/ Radiology~and current medications noted below. Continue current treatment with the changes noted in the dictated addendum note Assessment: Vital Signs: Vital Signs Date Time Temp Pulse Resp B/P (MAP) Pulse Ox O2 Delivery O2 Flow Rate FiO2 08/29/18 15:40 97.8 93 16 116/78 (91) 96 08/27/18 16:16 Room Air I&O Intake and Output 08/29/18 07:01 Intake Total 1200 ml Balance 1200 ml Intake Oral 1200 ml # Voids 1 Current Medications: Meds: Current Medications Acetaminophen (Tylenol) 650 mg PRN Q6HRS PRN PO PAIN / TEMP Last administered on 08/26/18 01:17; Start 06/21/18 at 20:15 Clonazepam (KlonoPIN) 1 mg BID PO Last administered on 08/14/18 19:19; Start 06/21/18 at 21:00; Stop 08/14/18 at 21:25; Status DC Gabapentin (Neurontin) 900 mg QID PO Last administered on 07/08/18at 16:58; Start 06/21/18 at 21:00; Stop 07/08/18 at 17:47; Status DC Al Hydroxide/Mg Hydroxide (Mylanta Plus Xs) 15 ml PRN AFTMEALHC PRN PO GI SYMPTOMS Last administered on 08/22/18 09:18; Start 06/21/18 at 20:15 Magnesium Hydroxide (Milk Of Magnesia) 400 mg PRN DAILY PRN PO CONSTIPATION Last administered on 08/12/18 19:23; Start 06/21/18 at 20:15 Multi-Ingredient Ointment (Analgesic [place]) 1 gerri PRN QID PRN TP MUSCLE PAIN Last administered on 08/26/18 11:32; Start 06/21/18 at 20:15 Oxybutynin Chloride (Ditropan) 2.5 mg BID PO Last administered on 08/29/18 19: 58; Start 06/21/18 at 21:00 Potassium Chloride (Klor-Con) 20 meq DAILY PO Last administered on 08/29/18 07 :47; Start 06/22/18 at 09:00 Tamsulosin HCl (Flomax) 0.8 mg DAILY PO Last administered on 08/29/18 07:49; Start 06/22/18 at 09:00 Amlodipine Besylate (Norvasc) 10 mg DAILY PO Last administered on 08/29/18 07: 47; Start 06/22/18 at 09:00 Baclofen (Lioresal) 10 mg QID PO Last administered on 07/07/18 19:36; Start 06/21/18 at 21:00; Stop 07/08/18 at 11:48; Status DC Bisacodyl (Dulcolax Supp) [address] CONSTIPATION; Start 06/21/18 at 20:45 Buspirone HCl (Buspar) 10 mg TID PO Last administered on 08/29/18 20:01; Start 06/21/18 at 21:00 Divalproex Sodium (Depakote Er) 1,500 mg HS PO Last administered on 08/29/18 20:01; Start 06/21/18 at 21:00 Non-Formulary Medication (Gabapentin ) 800 mg QID PO ; Start 06/21/18 at 21:00 ; Status UNV Levothyroxine Sodium (Synthroid) 50 mcg DAILY06 PO Last administered on 05:27; Start 06/22/18 at 06:00 Multivitamins/ Calcium (Thera-M Plus) 1 tab DAILY PO Last administered on 07:48; Start 06/22/18 at 09:00 Olanzapine (ZyPREXA ZYDIS) 2.5 mg PRN Q2HR PRN PO PSYCHOSIS Last administered on 08/10/18 20:19; Start 06/21/18 at 20:45 Olanzapine (ZyPREXA) 5 mg BID PO Last administered on 06/23/18 08:47; Start 06/21/18 at 21:00; Stop 06/23/18 at 17:06; Status DC Risperidone (RisperDAL) 1.5 mg HS PO Last administered on 06/23/18at 19:45; Start 06/21/18 at 21:00; Stop 06/24/18 at 11:06; Status DC Trazodone HCl (Desyrel) 50 mg PRN QHS PRN PO INSOMNIA Last administered on 20:19; Start 06/21/18 at 21:00; Stop 08/10/18 at 21:07; Status DC Nicotine (Nicoderm Cq 7mg) 1 patch PRN DAILY PRN TD SMOKING CESSATION; Start 06/21/18 at 23:30; Stop 07/09/18 at 05:39; Status DC Vitamin D (Vitamin D3) 50,000 unit WEEKLY PO Last administered on 08/25/18at 08: 06; Start 06/23/18 at 16:30 Olanzapine (ZyPREXA) 5 mg DAILY PO Last administered on 06/25/18at 08:04; Start 06/24/18 at 09:00; Stop 06/26/18 at 00:00; Status DC Risperidone (RisperDAL) 1.75 mg HS PO Last administered on 07/06/18at 20:08; Start 06/24/18 at 21:00; Stop 07/07/18 at 12:40; Status DC Risperidone (RisperDAL) 2 mg HS PO Last administered on 08/10/18at 20:15; Start 07/07/18 at 21:00; Stop 08/10/18 at 21:07; Status DC Gabapentin (Neurontin) 600 mg QID PO Last administered on 08/29/18at 20:00; Start 07/08/18 at 21:00 Nicotine (Nicoderm Cq 21mg) 1 patch DAILY TD Last administered on 07/30/18at 08 :54; Start 07/09/18 at 09:00; Stop 07/31/18 at 04:33; Status DC Clozapine (Clozaril) 25 mg DAILY PO Last administered on 07/27/18at 09:38; Start 07/13/18 at 09:00; Stop 07/27/18 at 16:52; Status DC Vitamin D (Vitamin D3) 50,000 unit WEEKLY PO ; Start 07/24/18 at 09:00; Status Cancel Clozapine (Clozaril) 50 mg DAILY PO Last administered on 08/03/18at 07:51; Start 07/28/18 at 09:00; Stop 08/03/18 at 21:09; Status DC Nicotine (Nicoderm Cq 21mg) 1 patch PRN DAILY PRN TD SMOKING CESSATION Last administered on 08/20/18at 09:30; Start 07/31/18 at 04:45; Stop 08/21/18 at 10: 24; Status DC Clozapine (Clozaril) 75 mg HS PO Last administered on 08/08/18at 19:36; Start 08/04/18 at 21:00; Stop 08/09/18 at 17:33; Status DC Clozapine (Clozaril) 25 mg 1X ONCE PO Last administered on 08/03/18at 21:25; Start 08/03/18 at 21:30; Stop 08/03/18 at 21:31; Status DC Clozapine (Clozaril) 100 mg QHS PO Last administered on 08/15/18 20:03; Start 08/09/18 at 21:00; Stop 08/16/18 at 16:48; Status DC Risperidone (RisperDAL) 1.5 mg HS PO Last administered on 08/16/18 19:21; Start 08/11/18 at 21:00; Stop 08/17/18 at 16:27; Status DC Trazodone HCl (Desyrel) 50 mg QHS PO ; Start 08/11/18 at 21:00; Stop 08/11/18 at 21:00; Status DC Ondansetron HCl (Zofran Odt) 4 mg PRN Q8HRS PRN PO NAUSEA/VOMITING Last administered on 08/12/18at 11:11; Start 08/12/18 at 10:45; Stop 08/12/18 at 16:29; Status DC Ondansetron HCl (Zofran Odt) 4 mg PRN Q4HRS PRN PO NAUSEA/VOMITING Last administered on 08/13/18 08:20; Start 08/12/18 at 16:30 Clonazepam (KlonoPIN) 0.75 mg DAILY PO Last administered on 08/29/18at 07:51; Start 08/15/18 at 09:00 Clonazepam (KlonoPIN) 1 mg HS PO Last administered on 08/16/18 19:26; Start 08/15/18 at 21:00; Stop 08/16/18 at 21:00; Status DC Clonazepam (KlonoPIN) 0.75 mg HS PO Last administered on 08/29/18at 20:03; Start 08/17/18 at 21:00 Clozapine (Clozaril) 125 mg QHS PO Last administered on 08/22/18 19:46; Start 08/16/18 at 21:00; Stop 08/23/18 at 16:56; Status DC Iohexol (Omnipaque 300 Mg/ml) 75 ml 1X ONCE IV ; Start 08/16/18 at 18:15; Stop 08/16/18 at 18:16; Status DC Iohexol (Omnipaque 300 Mg/ml) 75 ml 1X ONCE IV Last administered on 08/17/18at 09:12; Start 08/17/18 at 08:00; Stop 08/17/18 at 08:01; Status DC Iohexol (Omnipaque 300 Mg/ml) 75 ml 1X ONCE IV ; Start 08/17/18 at 09:00; Stop 08/17/18 at 09:02; Status DC Risperidone (RisperDAL) 1 mg QHS PO Last administered on 08/22/18at 19:46; Start 08/17/18 at 21:00; Stop 08/23/18 at 16:56; Status DC Nicotine (Nicoderm Cq 21mg) 1 patch DAILY TD Last administered on 08/29/18at 07: 49; Start 08/21/18 at 10:30 Clozapine (Clozaril) 150 mg QHS PO Last administered on 08/29/18at 19:58; Start 08/23/18 at 21:00 Risperidone (RisperDAL) 0.5 mg HS PO Last administered on 08/29/18at 20:00; Start 08/23/18 at 21:00 Active Scripts Active Reported Zyprexa (Olanzapine) 5 Mg Tablet 5 Mg PO BID NICODERM CQ 7mg (Nicotine) 1 Each Patch.td24 1 Patch TD PRN DAILY PRN Trazodone Hcl 50 Mg Tablet 50 Mg PO PRN QHS PRN Risperdal (Risperidone) 1 Mg Tablet 1.5 Mg PO HS Analgesic [place] (Methyl Salicylate/Menthol) 28 Gm Oint...g. 1 Gerri TP PRN QID PRN Milk Of Magnesia (Magnesium Hydroxide) 400 Mg/5 Ml Oral.susp 400 Mg PO PRN DAILY PRN Mag-Al Plus Xs Suspension (Mag Hydrox/Al Hydrox/Simeth) 30 Ml Oral.susp 15 Ml PO PRN AFTMEALHC PRN Buspirone Hcl 10 Mg Tablet 10 Mg PO TID Baclofen 10 Mg Tablet 10 Mg PO QID Gabapentin 100 Mg Capsule 100 Mg PO QID Gabapentin 800 Mg Tablet 800 Mg PO QID Levothyroxine Sodium 50 Mcg Tablet 50 Mcg PO DAILYAC Klonopin (Clonazepam) 0.5 Mg Tablet 1 Mg PO BID Norvasc (Amlodipine Besylate) 10 Mg Tablet 10 Mg PO DAILY Oxybutynin Chloride 5 Mg Tablet 2.5 Mg PO BID Depakote Er (Divalproex Sodium) 500 Mg Tab.er.24h 1,500 Mg PO HS Klor-Con M20 (Potassium Chloride) 20 Meq Tab.er.prt 20 Meq PO DAILY Cymbalta (Duloxetine Hcl) 60 Mg Capsule.dr 60 Mg PO DAILY Multivitamin with Iron Tablet (Multivitamin/Iron/Folic Acid) 1 Each Tablet 1 Tab PO DAILY Flomax (Tamsulosin Hcl) 0.4 Mg Cap.er.24h 0.8 Mg PO DAILY Olanzapine 5 Mg Tablet 2.5 Mg PO PRN Q2HR PRN MDD 10mg/ 24 hrs Remeron (Mirtazapine) 15 Mg Tablet 7.5 Mg PO HS Bisacodyl 10 Mg Supp.rect 10 Mg RC PRN DAILY PRN Tylenol (Acetaminophen) 325 Mg Tablet 650 Mg PO PRN Q6HRS PRN I have reviewed the current psychotropics carefully including drug interactions. Risk benefit ratio favors no change other than as noted in my dictated progress note. Diagnosis: Problems: (1) Depression (2) Schizoaffective disorder (3) Anxiety disorder (4) Impulse control disorder (5) Schizophrenia, paranoid, chronic with acute exacerbation CATHY EMERY MD Aug 29, 2018 22:33
[2018-08-30] MEDS: LEVOTHYROXINE 50 MCG TABLET PO SCH (05:56)
[2018-08-30] MEDS: ACETAMINOPHEN 325 MG TABLET PO PRN (05:56)
[2018-08-30 05:57] VITALS: BP 126/87
--- NOTE | 2018-08-30 06:56 | PDOC ---
Exam Note: Nguyễn Note: PSYCHIATRIC PROGRESS NOTE This late entry 08/27/2018 covers elements, not covered in my initial note. SUBJECTIVE: I met with the patient individually in the evening of 08/27/2018. Reviewed information from nursing staff. Reviewed the chart. He slept reasonably previous night. I met with him in his room. He remains somewhat withdrawn. No clear psychotic symptoms though he is a little paranoid at times. REVIEW OF SYSTEMS: Ambulation impaired, in walker. He was quite animated, verbal. No CV, , Eye, ENT, pulmonary system symptoms on review. MENTAL STATUS EXAMINATION: Oriented to himself. Speech is coherent. Abstraction is fair. Computation is impaired. Mood and affect remain somewhat labile, paranoid. Language function is intact. Attention span is short. LABORATORY DATA: Reviewed. IMPRESSION: Schizoaffective disorder bipolar type, mixed with psychotic features. Cognitive disorder unspecified. Anxiety disorder unspecified. Rest unchanged from my initial note. PLAN: I have carefully reviewed current psychotropics. Continue medications. Awaiting placement by social work staff. Assessment: Vital Signs: VS - Last 72 Hours, by Label Date Time Temp Pulse Resp B/P (MAP) Pulse Ox O2 Delivery O2 Flow Rate FiO2 08/30/18 05:57 97.4 95 18 126/87 (100) 92 08/29/18 15:40 97.8 93 16 116/78 (91) 96 08/29/18 07:47 63 121/89 08/29/18 05:51 98.7 63 19 121/89 (100) 95 08/28/18 15:33 98.3 92 20 131/77 (95) 96 08/28/18 08:20 87 120/84 08/28/18 05:28 97.9 87 20 120/84 (96) 94 08/27/18 16:16 98.2 79 20 105/71 (82) 96 Room Air 08/27/18 07:49 101 153/93 Vital Signs Date Time Temp Pulse Resp B/P (MAP) Pulse Ox O2 Delivery O2 Flow Rate FiO2 08/30/18 05:57 97.4 95 18 126/87 (100) 92 08/27/18 16:16 Room Air I&O Intake and Output 08/30/18 07:01 Intake Total 1440 ml Balance 1440 ml Intake Oral 1440 ml Current Medications: Meds: Current Medications Acetaminophen (Tylenol) 650 mg PRN Q6HRS PRN PO PAIN / TEMP Last administered on 08/30/18 05:56; Start 06/21/18 at 20:15 Clonazepam (KlonoPIN) 1 mg BID PO Last administered on 08/14/18 19:19; Start 06/21/18 at 21:00; Stop 08/14/18 at 21:25; Status DC Gabapentin (Neurontin) 900 mg QID PO Last administered on 07/08/18 16:58; Start 06/21/18 at 21:00; Stop 07/08/18 at 17:47; Status DC Al Hydroxide/Mg Hydroxide (Mylanta Plus Xs) 15 ml PRN AFTMEALHC PRN PO GI SYMPTOMS Last administered on 08/22/18 09:18; Start 06/21/18 at 20:15 Magnesium Hydroxide (Milk Of Magnesia) 400 mg PRN DAILY PRN PO CONSTIPATION Last administered on 08/12/18 19:23; Start 06/21/18 at 20:15 Multi-Ingredient Ointment (Analgesic [place]) 1 gerri PRN QID PRN TP MUSCLE PAIN Last administered on 08/26/18 11:32; Start 06/21/18 at 20:15 Oxybutynin Chloride (Ditropan) 2.5 mg BID PO Last administered on 08/29/18 19: 58; Start 06/21/18 at 21:00 Potassium Chloride (Klor-Con) 20 meq DAILY PO Last administered on 08/29/18 07 :47; Start 06/22/18 at 09:00 Tamsulosin HCl (Flomax) 0.8 mg DAILY PO Last administered on 08/29/18 07:49; Start 06/22/18 at 09:00 Amlodipine Besylate (Norvasc) 10 mg DAILY PO Last administered on 08/29/18 07: 47; Start 06/22/18 at 09:00 Baclofen (Lioresal) 10 mg QID PO Last administered on 07/07/18 19:36; Start 06/21/18 at 21:00; Stop 07/08/18 at 11:48; Status DC Bisacodyl (Dulcolax Supp) 10 mg PRN DAILY PRN [place] CONSTIPATION; Start 06/21/18 at 20:45 Buspirone HCl (Buspar) 10 mg TID PO Last administered on 08/29/18 20:01; Start 06/21/18 at 21:00 Divalproex Sodium (Depakote Er) 1,500 mg HS PO Last administered on 08/29/18 20:01; Start 06/21/18 at 21:00 Non-Formulary Medication (Gabapentin ) 800 mg QID PO ; Start 06/21/18 at 21:00 ; Status UNV Levothyroxine Sodium (Synthroid) 50 mcg DAILY06 PO Last administered on 05:56; Start 06/22/18 at 06:00 Multivitamins/ Calcium (Thera-M Plus) 1 tab DAILY PO Last administered on 07:48; Start 06/22/18 at 09:00 Olanzapine (ZyPREXA ZYDIS) 2.5 mg PRN Q2HR PRN PO PSYCHOSIS Last administered on 08/10/18 20:19; Start 06/21/18 at 20:45 Olanzapine (ZyPREXA) 5 mg BID PO Last administered on 06/23/18at 08:47; Start 06/21/18 at 21:00; Stop 06/23/18 at 17:06; Status DC Risperidone (RisperDAL) 1.5 mg HS PO Last administered on 06/23/18at 19:45; Start 06/21/18 at 21:00; Stop 06/24/18 at 11:06; Status DC Trazodone HCl (Desyrel) 50 mg PRN QHS PRN PO INSOMNIA Last administered on 20:19; Start 06/21/18 at 21:00; Stop 08/10/18 at 21:07; Status DC Nicotine (Nicoderm Cq 7mg) 1 patch PRN DAILY PRN TD SMOKING CESSATION; Start 06/21/18 at 23:30; Stop 07/09/18 at 05:39; Status DC Vitamin D (Vitamin D3) 50,000 unit WEEKLY PO Last administered on 08/25/18 08: 06; Start 06/23/18 at 16:30 Olanzapine (ZyPREXA) 5 mg DAILY PO Last administered on 06/25/18at 08:04; Start 06/24/18 at 09:00; Stop 06/26/18 at 00:00; Status DC Risperidone (RisperDAL) 1.75 mg HS PO Last administered on 07/06/18at 20:08; Start 06/24/18 at 21:00; Stop 07/07/18 at 12:40; Status DC Risperidone (RisperDAL) 2 mg HS PO Last administered on 08/10/18at 20:15; Start 07/07/18 at 21:00; Stop 08/10/18 at 21:07; Status DC Gabapentin (Neurontin) 600 mg QID PO Last administered on 08/29/18at 20:00; Start 07/08/18 at 21:00 Nicotine (Nicoderm Cq 21mg) 1 patch DAILY TD Last administered on 07/30/18at 08 :54; Start 07/09/18 at 09:00; Stop 07/31/18 at 04:33; Status DC Clozapine (Clozaril) 25 mg DAILY PO Last administered on 07/27/18at 09:38; Start 07/13/18 at 09:00; Stop 07/27/18 at 16:52; Status DC Vitamin D (Vitamin D3) 50,000 unit WEEKLY PO ; Start 07/24/18 at 09:00; Status Cancel Clozapine (Clozaril) 50 mg DAILY PO Last administered on 08/03/18at 07:51; Start 07/28/18 at 09:00; Stop 08/03/18 at 21:09; Status DC Nicotine (Nicoderm Cq 21mg) 1 patch PRN DAILY PRN TD SMOKING CESSATION Last administered on 08/20/18at 09:30; Start 07/31/18 at 04:45; Stop 08/21/18 at 10: 24; Status DC Clozapine (Clozaril) 75 mg HS PO Last administered on 08/08/18at 19:36; Start 08/04/18 at 21:00; Stop 08/09/18 at 17:33; Status DC Clozapine (Clozaril) 25 mg 1X ONCE PO Last administered on 08/03/18at 21:25; Start 08/03/18 at 21:30; Stop 08/03/18 at 21:31; Status DC Clozapine (Clozaril) 100 mg QHS PO Last administered on 08/15/18at 20:03; Start 08/09/18 at 21:00; Stop 08/16/18 at 16:48; Status DC Risperidone (RisperDAL) 1.5 mg HS PO Last administered on 08/16/18at 19:21; Start 08/11/18 at 21:00; Stop 08/17/18 at 16:27; Status DC Trazodone HCl (Desyrel) 50 mg QHS PO ; Start 08/11/18 at 21:00; Stop 08/11/18 at 21:00; Status DC Ondansetron HCl (Zofran Odt) 4 mg PRN Q8HRS PRN PO NAUSEA/VOMITING Last administered on 08/12/18at 11:11; Start 08/12/18 at 10:45; Stop 08/12/18 at 16:29; Status DC Ondansetron HCl (Zofran Odt) 4 mg PRN Q4HRS PRN PO NAUSEA/VOMITING Last administered on 08/13/18at 08:20; Start 08/12/18 at 16:30 Clonazepam (KlonoPIN) 0.75 mg DAILY PO Last administered on 08/29/18at 07:51; Start 08/15/18 at 09:00 Clonazepam (KlonoPIN) 1 mg HS PO Last administered on 08/16/18at 19:26; Start 08/15/18 at 21:00; Stop 08/16/18 at 21:00; Status DC Clonazepam (KlonoPIN) 0.75 mg HS PO Last administered on 08/29/18at 20:03; Start 08/17/18 at 21:00 Clozapine (Clozaril) 125 mg QHS PO Last administered on 08/22/18at 19:46; Start 08/16/18 at 21:00; Stop 08/23/18 at 16:56; Status DC Iohexol (Omnipaque 300 Mg/ml) 75 ml 1X ONCE IV ; Start 08/16/18 at 18:15; Stop 08/16/18 at 18:16; Status DC Iohexol (Omnipaque 300 Mg/ml) 75 ml 1X ONCE IV Last administered on 08/17/18at 09:12; Start 08/17/18 at 08:00; Stop 08/17/18 at 08:01; Status DC Iohexol (Omnipaque 300 Mg/ml) 75 ml 1X ONCE IV ; Start 08/17/18 at 09:00; Stop 08/17/18 at 09:02; Status DC Risperidone (RisperDAL) 1 mg QHS PO Last administered on 08/22/18at 19:46; Start 08/17/18 at 21:00; Stop 08/23/18 at 16:56; Status DC Nicotine (Nicoderm Cq 21mg) 1 patch DAILY TD Last administered on 08/29/18at 07: 49; Start 08/21/18 at 10:30 Clozapine (Clozaril) 150 mg QHS PO Last administered on 08/29/18at 19:58; Start 08/23/18 at 21:00 Risperidone (RisperDAL) 0.5 mg HS PO Last administered on 08/29/18at 20:00; Start 08/23/18 at 21:00 Active Scripts Active Reported Zyprexa (Olanzapine) 5 Mg Tablet 5 Mg PO BID NICODERM CQ 7mg (Nicotine) 1 Each Patch.td24 1 Patch TD PRN DAILY PRN Trazodone Hcl 50 Mg Tablet 50 Mg PO PRN QHS PRN Risperdal (Risperidone) 1 Mg Tablet 1.5 Mg PO HS Analgesic [place] (Methyl Salicylate/Menthol) 28 Gm Oint...g. 1 Gerri TP PRN QID PRN Milk Of Magnesia (Magnesium Hydroxide) 400 Mg/5 Ml Oral.susp 400 Mg PO PRN DAILY PRN Mag-Al Plus Xs Suspension (Mag Hydrox/Al Hydrox/Simeth) 30 Ml Oral.susp 15 Ml PO PRN AFTMEALHC PRN Buspirone Hcl 10 Mg Tablet 10 Mg PO TID Baclofen 10 Mg Tablet 10 Mg PO QID Gabapentin 100 Mg Capsule 100 Mg PO QID Gabapentin 800 Mg Tablet 800 Mg PO QID Levothyroxine Sodium 50 Mcg Tablet 50 Mcg PO DAILYAC Klonopin (Clonazepam) 0.5 Mg Tablet 1 Mg PO BID Norvasc (Amlodipine Besylate) 10 Mg Tablet 10 Mg PO DAILY Oxybutynin Chloride 5 Mg Tablet 2.5 Mg PO BID Depakote Er (Divalproex Sodium) 500 Mg Tab.er.24h 1,500 Mg PO HS Klor-Con M20 (Potassium Chloride) 20 Meq Tab.er.prt 20 Meq PO DAILY Cymbalta (Duloxetine Hcl) 60 Mg Capsule.dr 60 Mg PO DAILY Multivitamin with Iron Tablet (Multivitamin/Iron/Folic Acid) 1 Each Tablet 1 Tab PO DAILY Flomax (Tamsulosin Hcl) 0.4 Mg Cap.er.24h 0.8 Mg PO DAILY Olanzapine 5 Mg Tablet 2.5 Mg PO PRN Q2HR PRN MDD 10mg/ 24 hrs Remeron (Mirtazapine) 15 Mg Tablet 7.5 Mg PO HS Bisacodyl 10 Mg Supp.rect 10 Mg RC PRN DAILY PRN Tylenol (Acetaminophen) 325 Mg Tablet 650 Mg PO PRN Q6HRS PRN I have reviewed the current psychotropics carefully including drug interactions. Risk benefit ratio favors no change other than as noted in my dictated progress note. Diagnosis: Problems: (1) Depression (2) Schizoaffective disorder (3) Anxiety disorder (4) Impulse control disorder (5) Schizophrenia, paranoid, chronic with acute exacerbation CATHY EMERY MD Aug 30, 2018 06:56
--- NOTE | 2018-08-30 07:14 | PDOC ---
Exam Note: Nguyễn Note: PSYCHIATRIC PROGRESS NOTE This late entry 08/28/2018 covers elements, not covered in my initial note. SUBJECTIVE: I met with the patient individually in the evening of 08/28/2018. Reviewed information from nursing staff. Reviewed the chart. He slept 8 hours. Again, I met with him in his room, withdrawn, slight paranoia. No hallucinations. REVIEW OF SYSTEMS: Ambulation impaired, in walker. He was quite animated, verbal. No CV, , Eye, ENT, pulmonary system symptoms on review. MENTAL STATUS EXAMINATION: Oriented to himself. Speech is coherent. Abstraction is fair. Computation is impaired. Mood and affect remain somewhat labile, paranoid. Language function is intact. Attention span is short. LABORATORY DATA: Reviewed. IMPRESSION: Schizoaffective disorder bipolar type, mixed with psychotic features. Cognitive disorder unspecified. Anxiety disorder unspecified. Rest unchanged from my initial note. PLAN: I have carefully reviewed current psychotropics. There is no change from my initial note. Assessment: Vital Signs: VS - Last 72 Hours, by Label Date Time Temp Pulse Resp B/P (MAP) Pulse Ox O2 Delivery O2 Flow Rate FiO2 08/30/18 05:57 97.4 95 18 126/87 (100) 92 08/29/18 15:40 97.8 93 16 116/78 (91) 96 08/29/18 07:47 63 121/89 08/29/18 05:51 98.7 63 19 121/89 (100) 95 08/28/18 15:33 98.3 92 20 131/77 (95) 96 08/28/18 08:20 87 120/84 08/28/18 05:28 97.9 87 20 120/84 (96) 94 08/27/18 16:16 98.2 79 20 105/71 (82) 96 Room Air 08/27/18 07:49 101 153/93 Vital Signs Date Time Temp Pulse Resp B/P (MAP) Pulse Ox O2 Delivery O2 Flow Rate FiO2 08/30/18 05:57 97.4 95 18 126/87 (100) 92 08/27/18 16:16 Room Air I&O Intake and Output 08/30/18 07:01 Intake Total 1440 ml Balance 1440 ml Intake Oral 1440 ml Current Medications: Meds: Current Medications Acetaminophen (Tylenol) 650 mg PRN Q6HRS PRN PO PAIN / TEMP Last administered on 08/30/18 05:56; Start 06/21/18 at 20:15 Clonazepam (KlonoPIN) 1 mg BID PO Last administered on 08/14/18 19:19; Start 06/21/18 at 21:00; Stop 08/14/18 at 21:25; Status DC Gabapentin (Neurontin) 900 mg QID PO Last administered on 07/08/18 16:58; Start 06/21/18 at 21:00; Stop 07/08/18 at 17:47; Status DC Al Hydroxide/Mg Hydroxide (Mylanta Plus Xs) 15 ml PRN AFTMEALHC PRN PO GI SYMPTOMS Last administered on 08/22/18 09:18; Start 06/21/18 at 20:15 Magnesium Hydroxide (Milk Of Magnesia) 400 mg PRN DAILY PRN PO CONSTIPATION Last administered on 08/12/18 19:23; Start 06/21/18 at 20:15 Multi-Ingredient Ointment (Analgesic [place]) 1 gerri PRN QID PRN TP MUSCLE PAIN Last administered on 08/26/18 11:32; Start 06/21/18 at 20:15 Oxybutynin Chloride (Ditropan) 2.5 mg BID PO Last administered on 08/29/18 19: 58; Start 06/21/18 at 21:00 Potassium Chloride (Klor-Con) 20 meq DAILY PO Last administered on 08/29/18 07 :47; Start 06/22/18 at 09:00 Tamsulosin HCl (Flomax) 0.8 mg DAILY PO Last administered on 08/29/18 07:49; Start 06/22/18 at 09:00 Amlodipine Besylate (Norvasc) 10 mg DAILY PO Last administered on 08/29/18 07: 47; Start 06/22/18 at 09:00 Baclofen (Lioresal) 10 mg QID PO Last administered on 07/07/18 19:36; Start 06/21/18 at 21:00; Stop 07/08/18 at 11:48; Status DC Bisacodyl (Dulcolax Supp) 10 mg PRN DAILY PRN [place] CONSTIPATION; Start 06/21/18 at 20:45 Buspirone HCl (Buspar) 10 mg TID PO Last administered on 08/29/18 20:01; Start 06/21/18 at 21:00 Divalproex Sodium (Depakote Er) 1,500 mg HS PO Last administered on 08/29/18 20:01; Start 06/21/18 at 21:00 Non-Formulary Medication (Gabapentin ) 800 mg QID PO ; Start 06/21/18 at 21:00 ; Status UNV Levothyroxine Sodium (Synthroid) 50 mcg DAILY06 PO Last administered on 05:56; Start 06/22/18 at 06:00 Multivitamins/ Calcium (Thera-M Plus) 1 tab DAILY PO Last administered on 07:48; Start 06/22/18 at 09:00 Olanzapine (ZyPREXA ZYDIS) 2.5 mg PRN Q2HR PRN PO PSYCHOSIS Last administered on 08/10/18 20:19; Start 06/21/18 at 20:45 Olanzapine (ZyPREXA) 5 mg BID PO Last administered on 06/23/18at 08:47; Start 06/21/18 at 21:00; Stop 06/23/18 at 17:06; Status DC Risperidone (RisperDAL) 1.5 mg HS PO Last administered on 06/23/18at 19:45; Start 06/21/18 at 21:00; Stop 06/24/18 at 11:06; Status DC Trazodone HCl (Desyrel) 50 mg PRN QHS PRN PO INSOMNIA Last administered on 20:19; Start 06/21/18 at 21:00; Stop 08/10/18 at 21:07; Status DC Nicotine (Nicoderm Cq 7mg) 1 patch PRN DAILY PRN TD SMOKING CESSATION; Start 06/21/18 at 23:30; Stop 07/09/18 at 05:39; Status DC Vitamin D (Vitamin D3) 50,000 unit WEEKLY PO Last administered on 08/25/18 08: 06; Start 06/23/18 at 16:30 Olanzapine (ZyPREXA) 5 mg DAILY PO Last administered on 06/25/18at 08:04; Start 06/24/18 at 09:00; Stop 06/26/18 at 00:00; Status DC Risperidone (RisperDAL) 1.75 mg HS PO Last administered on 07/06/18at 20:08; Start 06/24/18 at 21:00; Stop 07/07/18 at 12:40; Status DC Risperidone (RisperDAL) 2 mg HS PO Last administered on 08/10/18at 20:15; Start 07/07/18 at 21:00; Stop 08/10/18 at 21:07; Status DC Gabapentin (Neurontin) 600 mg QID PO Last administered on 08/29/18at 20:00; Start 07/08/18 at 21:00 Nicotine (Nicoderm Cq 21mg) 1 patch DAILY TD Last administered on 07/30/18at 08 :54; Start 07/09/18 at 09:00; Stop 07/31/18 at 04:33; Status DC Clozapine (Clozaril) 25 mg DAILY PO Last administered on 07/27/18at 09:38; Start 07/13/18 at 09:00; Stop 07/27/18 at 16:52; Status DC Vitamin D (Vitamin D3) 50,000 unit WEEKLY PO ; Start 07/24/18 at 09:00; Status Cancel Clozapine (Clozaril) 50 mg DAILY PO Last administered on 08/03/18at 07:51; Start 07/28/18 at 09:00; Stop 08/03/18 at 21:09; Status DC Nicotine (Nicoderm Cq 21mg) 1 patch PRN DAILY PRN TD SMOKING CESSATION Last administered on 08/20/18at 09:30; Start 07/31/18 at 04:45; Stop 08/21/18 at 10: 24; Status DC Clozapine (Clozaril) 75 mg HS PO Last administered on 08/08/18at 19:36; Start 08/04/18 at 21:00; Stop 08/09/18 at 17:33; Status DC Clozapine (Clozaril) 25 mg 1X ONCE PO Last administered on 08/03/18at 21:25; Start 08/03/18 at 21:30; Stop 08/03/18 at 21:31; Status DC Clozapine (Clozaril) 100 mg QHS PO Last administered on 08/15/18at 20:03; Start 08/09/18 at 21:00; Stop 08/16/18 at 16:48; Status DC Risperidone (RisperDAL) 1.5 mg HS PO Last administered on 08/16/18 19:21; Start 08/11/18 at 21:00; Stop 08/17/18 at 16:27; Status DC Trazodone HCl (Desyrel) 50 mg QHS PO ; Start 08/11/18 at 21:00; Stop 08/11/18 at 21:00; Status DC Ondansetron HCl (Zofran Odt) 4 mg PRN Q8HRS PRN PO NAUSEA/VOMITING Last administered on 08/12/18at 11:11; Start 08/12/18 at 10:45; Stop 08/12/18 at 16:29; Status DC Ondansetron HCl (Zofran Odt) 4 mg PRN Q4HRS PRN PO NAUSEA/VOMITING Last administered on 08/13/18at 08:20; Start 08/12/18 at 16:30 Clonazepam (KlonoPIN) 0.75 mg DAILY PO Last administered on 08/29/18at 07:51; Start 08/15/18 at 09:00 Clonazepam (KlonoPIN) 1 mg HS PO Last administered on 08/16/18 19:26; Start 08/15/18 at 21:00; Stop 08/16/18 at 21:00; Status DC Clonazepam (KlonoPIN) 0.75 mg HS PO Last administered on 08/29/18at 20:03; Start 08/17/18 at 21:00 Clozapine (Clozaril) 125 mg QHS PO Last administered on 08/22/18at 19:46; Start 08/16/18 at 21:00; Stop 08/23/18 at 16:56; Status DC Iohexol (Omnipaque 300 Mg/ml) 75 ml 1X ONCE IV ; Start 08/16/18 at 18:15; Stop 08/16/18 at 18:16; Status DC Iohexol (Omnipaque 300 Mg/ml) 75 ml 1X ONCE IV Last administered on 08/17/18at 09:12; Start 08/17/18 at 08:00; Stop 08/17/18 at 08:01; Status DC Iohexol (Omnipaque 300 Mg/ml) 75 ml 1X ONCE IV ; Start 08/17/18 at 09:00; Stop 08/17/18 at 09:02; Status DC Risperidone (RisperDAL) 1 mg QHS PO Last administered on 08/22/18at 19:46; Start 08/17/18 at 21:00; Stop 08/23/18 at 16:56; Status DC Nicotine (Nicoderm Cq 21mg) 1 patch DAILY TD Last administered on 08/29/18at 07: 49; Start 08/21/18 at 10:30 Clozapine (Clozaril) 150 mg QHS PO Last administered on 08/29/18at 19:58; Start 08/23/18 at 21:00 Risperidone (RisperDAL) 0.5 mg HS PO Last administered on 08/29/18at 20:00; Start 08/23/18 at 21:00 Active Scripts Active Reported Zyprexa (Olanzapine) 5 Mg Tablet 5 Mg PO BID NICODERM CQ 7mg (Nicotine) 1 Each Patch.td24 1 Patch TD PRN DAILY PRN Trazodone Hcl 50 Mg Tablet 50 Mg PO PRN QHS PRN Risperdal (Risperidone) 1 Mg Tablet 1.5 Mg PO HS Analgesic [place] (Methyl Salicylate/Menthol) 28 Gm Oint...g. 1 Gerri TP PRN QID PRN Milk Of Magnesia (Magnesium Hydroxide) 400 Mg/5 Ml Oral.susp 400 Mg PO PRN DAILY PRN Mag-Al Plus Xs Suspension (Mag Hydrox/Al Hydrox/Simeth) 30 Ml Oral.susp 15 Ml PO PRN AFTMEALHC PRN Buspirone Hcl 10 Mg Tablet 10 Mg PO TID Baclofen 10 Mg Tablet 10 Mg PO QID Gabapentin 100 Mg Capsule 100 Mg PO QID Gabapentin 800 Mg Tablet 800 Mg PO QID Levothyroxine Sodium 50 Mcg Tablet 50 Mcg PO DAILYAC Klonopin (Clonazepam) 0.5 Mg Tablet 1 Mg PO BID Norvasc (Amlodipine Besylate) 10 Mg Tablet 10 Mg PO DAILY Oxybutynin Chloride 5 Mg Tablet 2.5 Mg PO BID Depakote Er (Divalproex Sodium) 500 Mg Tab.er.24h 1,500 Mg PO HS Klor-Con M20 (Potassium Chloride) 20 Meq Tab.er.prt 20 Meq PO DAILY Cymbalta (Duloxetine Hcl) 60 Mg Capsule.dr 60 Mg PO DAILY Multivitamin with Iron Tablet (Multivitamin/Iron/Folic Acid) 1 Each Tablet 1 Tab PO DAILY Flomax (Tamsulosin Hcl) 0.4 Mg Cap.er.24h 0.8 Mg PO DAILY Olanzapine 5 Mg Tablet 2.5 Mg PO PRN Q2HR PRN MDD 10mg/ 24 hrs Remeron (Mirtazapine) 15 Mg Tablet 7.5 Mg PO HS Bisacodyl 10 Mg Supp.rect 10 Mg RC PRN DAILY PRN Tylenol (Acetaminophen) 325 Mg Tablet 650 Mg PO PRN Q6HRS PRN I have reviewed the current psychotropics carefully including drug interactions. Risk benefit ratio favors no change other than as noted in my dictated progress note. Diagnosis: Problems: (1) Depression (2) Schizoaffective disorder (3) Anxiety disorder (4) Impulse control disorder (5) Schizophrenia, paranoid, chronic with acute exacerbation CATHY EMERY MD Aug 30, 2018 07:14
[2018-08-30] MEDS: MULTIVITAMIN with MINERAL TABLET. PO SCH (07:55)
[2018-08-30] MEDS: NICOTINE 21MG PATCH. TD SCH (07:55)
[2018-08-30] MEDS: POTASSIUM CHLORIDE 20 MEQ TABLET.ER. PO SCH (07:55)
[2018-08-30] MEDS: OXYBUTYNIN CHLORIDE 5 MG TABLET PO SCH ×2 (07:55→19:25)
[2018-08-30] MEDS: TAMSULOSIN 0.4 MG CAP.ER.24H. PO SCH (07:56)
[2018-08-30] MEDS: amLODIPine BESYLATE 10 MG TABLET PO SCH (07:56)
[2018-08-30] MEDS: busPIRone 10 MG TABLET. PO SCH ×3 (07:56→19:25)
[2018-08-30] MEDS: clonazePAM 0.5 MG TABLET PO SCH ×2 (07:58→19:25)
[2018-08-30] MEDS: GABAPENTIN 300 MG CAPSULE. PO SCH ×4 (07:58→19:24)
[2018-08-30 16:41] VITALS: BP 119/80
[2018-08-30] MEDS: DIVALPROEX ER 500 MG TAB.ER.24H PO SCH (19:24)
[2018-08-30] MEDS: risperiDONE 0.5 MG TABLET. PO SCH (19:25)
[2018-08-30] MEDS: cloZAPine 100 MG TABLET PO SCH (19:27)
--- NOTE | 2018-08-30 22:33 | PDOC ---
Exam Note: Nguyễn Note: Please also refer to the separate dictated note~for this date of service dictated separately.~Patient seen individually. Discussed the patient with Nursing staff reviewed the chart.~Reviewed interim history and current functioning. Reviewed vital signs,~Labs/ Radiology~and current medications noted below. Continue current treatment with the changes noted in the dictated addendum note Assessment: Vital Signs: Vital Signs Date Time Temp Pulse Resp B/P (MAP) Pulse Ox O2 Delivery O2 Flow Rate FiO2 08/30/18 16:41 98.3 90 20 119/80 (93) 95 08/27/18 16:16 Room Air I&O Intake and Output 08/30/18 07:01 Intake Total 1440 ml Balance 1440 ml Intake Oral 1440 ml Current Medications: Meds: Current Medications Acetaminophen (Tylenol) 650 mg PRN Q6HRS PRN PO PAIN / TEMP Last administered on 08/30/18 05:56; Start 06/21/18 at 20:15 Clonazepam (KlonoPIN) 1 mg BID PO Last administered on 08/14/18 19:19; Start 06/21/18 at 21:00; Stop 08/14/18 at 21:25; Status DC Gabapentin (Neurontin) 900 mg QID PO Last administered on 07/08/18 16:58; Start 06/21/18 at 21:00; Stop 07/08/18 at 17:47; Status DC Al Hydroxide/Mg Hydroxide (Mylanta Plus Xs) 15 ml PRN AFTMEALHC PRN PO GI SYMPTOMS Last administered on 08/22/18 09:18; Start 06/21/18 at 20:15 Magnesium Hydroxide (Milk Of Magnesia) 400 mg PRN DAILY PRN PO CONSTIPATION Last administered on 08/12/18 19:23; Start 06/21/18 at 20:15 Multi-Ingredient Ointment (Analgesic [place]) 1 gerri PRN QID PRN TP MUSCLE PAIN Last administered on 08/26/18 11:32; Start 06/21/18 at 20:15 Oxybutynin Chloride (Ditropan) 2.5 mg BID PO Last administered on 08/30/18 19: 25; Start 06/21/18 at 21:00 Potassium Chloride (Klor-Con) 20 meq DAILY PO Last administered on 1/21/19at 07 :55; Start 06/22/18 at 09:00 Tamsulosin HCl (Flomax) 0.8 mg DAILY PO Last administered on 08/30/18 07:56; Start 06/22/18 at 09:00 Amlodipine Besylate (Norvasc) 10 mg DAILY PO Last administered on 08/30/18 07: 56; Start 06/22/18 at 09:00 Baclofen (Lioresal) 10 mg QID PO Last administered on 07/07/18 19:36; Start 06/21/18 at 21:00; Stop 07/08/18 at 11:48; Status DC Bisacodyl (Dulcolax Supp) 10 mg PRN DAILY PRN [place] CONSTIPATION; Start 06/21/18 at 20:45 Buspirone HCl (Buspar) 10 mg TID PO Last administered on 08/30/18 19:25; Start 06/21/18 at 21:00 Divalproex Sodium (Depakote Er) 1,500 mg HS PO Last administered on 08/30/18 19:24; Start 06/21/18 at 21:00 Non-Formulary Medication (Gabapentin ) 800 mg QID PO ; Start 06/21/18 at 21:00 ; Status UNV Levothyroxine Sodium (Synthroid) 50 mcg DAILY06 PO Last administered on 05:56; Start 06/22/18 at 06:00 Multivitamins/ Calcium (Thera-M Plus) 1 tab DAILY PO Last administered on 07:55; Start 06/22/18 at 09:00 Olanzapine (ZyPREXA ZYDIS) 2.5 mg PRN Q2HR PRN PO PSYCHOSIS Last administered on 08/10/18 20:19; Start 06/21/18 at 20:45 Olanzapine (ZyPREXA) 5 mg BID PO Last administered on 06/23/18 08:47; Start 06/21/18 at 21:00; Stop 06/23/18 at 17:06; Status DC Risperidone (RisperDAL) 1.5 mg HS PO Last administered on 06/23/18 19:45; Start 06/21/18 at 21:00; Stop 06/24/18 at 11:06; Status DC Trazodone HCl (Desyrel) 50 mg PRN QHS PRN PO INSOMNIA Last administered on at 20:19; Start 06/21/18 at 21:00; Stop 08/10/18 at 21:07; Status DC Nicotine (Nicoderm Cq 7mg) 1 patch PRN DAILY PRN TD SMOKING CESSATION; Start 06/21/18 at 23:30; Stop 07/09/18 at 05:39; Status DC Vitamin D (Vitamin D3) 50,000 unit WEEKLY PO Last administered on 08/25/18at 08: 06; Start 06/23/18 at 16:30 Olanzapine (ZyPREXA) 5 mg DAILY PO Last administered on 06/25/18at 08:04; Start 06/24/18 at 09:00; Stop 06/26/18 at 00:00; Status DC Risperidone (RisperDAL) 1.75 mg HS PO Last administered on 07/06/18at 20:08; Start 06/24/18 at 21:00; Stop 07/07/18 at 12:40; Status DC Risperidone (RisperDAL) 2 mg HS PO Last administered on 08/10/18at 20:15; Start 07/07/18 at 21:00; Stop 08/10/18 at 21:07; Status DC Gabapentin (Neurontin) 600 mg QID PO Last administered on 08/30/18at 19:24; Start 07/08/18 at 21:00 Nicotine (Nicoderm Cq 21mg) 1 patch DAILY TD Last administered on 07/30/18at 08 :54; Start 07/09/18 at 09:00; Stop 07/31/18 at 04:33; Status DC Clozapine (Clozaril) 25 mg DAILY PO Last administered on 07/27/18at 09:38; Start 07/13/18 at 09:00; Stop 07/27/18 at 16:52; Status DC Vitamin D (Vitamin D3) 50,000 unit WEEKLY PO ; Start 07/24/18 at 09:00; Status Cancel Clozapine (Clozaril) 50 mg DAILY PO Last administered on 08/03/18at 07:51; Start 07/28/18 at 09:00; Stop 08/03/18 at 21:09; Status DC Nicotine (Nicoderm Cq 21mg) 1 patch PRN DAILY PRN TD SMOKING CESSATION Last administered on 1/11/19at 09:30; Start 07/31/18 at 04:45; Stop 08/21/18 at 10: 24; Status DC Clozapine (Clozaril) 75 mg HS PO Last administered on 08/08/18at 19:36; Start 08/04/18 at 21:00; Stop 08/09/18 at 17:33; Status DC Clozapine (Clozaril) 25 mg 1X ONCE PO Last administered on 08/03/18at 21:25; Start 08/03/18 at 21:30; Stop 08/03/18 at 21:31; Status DC Clozapine (Clozaril) 100 mg QHS PO Last administered on 08/15/18 20:03; Start 08/09/18 at 21:00; Stop 08/16/18 at 16:48; Status DC Risperidone (RisperDAL) 1.5 mg HS PO Last administered on 08/16/18 19:21; Start 08/11/18 at 21:00; Stop 08/17/18 at 16:27; Status DC Trazodone HCl (Desyrel) 50 mg QHS PO ; Start 08/11/18 at 21:00; Stop 08/11/18 at 21:00; Status DC Ondansetron HCl (Zofran Odt) 4 mg PRN Q8HRS PRN PO NAUSEA/VOMITING Last administered on 08/12/18 11:11; Start 08/12/18 at 10:45; Stop 08/12/18 at 16:29; Status DC Ondansetron HCl (Zofran Odt) 4 mg PRN Q4HRS PRN PO NAUSEA/VOMITING Last administered on 08/13/18 08:20; Start 08/12/18 at 16:30 Clonazepam (KlonoPIN) 0.75 mg DAILY PO Last administered on 08/30/18at 07:58; Start 08/15/18 at 09:00 Clonazepam (KlonoPIN) 1 mg HS PO Last administered on 08/16/18 19:26; Start 08/15/18 at 21:00; Stop 08/16/18 at 21:00; Status DC Clonazepam (KlonoPIN) 0.75 mg HS PO Last administered on 08/30/18 19:25; Start 08/17/18 at 21:00 Clozapine (Clozaril) 125 mg QHS PO Last administered on 08/22/18at 19:46; Start 08/16/18 at 21:00; Stop 08/23/18 at 16:56; Status DC Iohexol (Omnipaque 300 Mg/ml) 75 ml 1X ONCE IV ; Start 08/16/18 at 18:15; Stop 08/16/18 at 18:16; Status DC Iohexol (Omnipaque 300 Mg/ml) 75 ml 1X ONCE IV Last administered on 08/17/18at 09:12; Start 08/17/18 at 08:00; Stop 08/17/18 at 08:01; Status DC Iohexol (Omnipaque 300 Mg/ml) 75 ml 1X ONCE IV ; Start 08/17/18 at 09:00; Stop 08/17/18 at 09:02; Status DC Risperidone (RisperDAL) 1 mg QHS PO Last administered on 08/22/18at 19:46; Start 08/17/18 at 21:00; Stop 08/23/18 at 16:56; Status DC Nicotine (Nicoderm Cq 21mg) 1 patch DAILY TD Last administered on 08/30/18at 07: 55; Start 08/21/18 at 10:30 Clozapine (Clozaril) 150 mg QHS PO Last administered on 08/30/18at 19:27; Start 08/23/18 at 21:00 Risperidone (RisperDAL) 0.5 mg HS PO Last administered on 08/30/18at 19:25; Start 08/23/18 at 21:00 Active Scripts Active Reported Zyprexa (Olanzapine) 5 Mg Tablet 5 Mg PO BID NICODERM CQ 7mg (Nicotine) 1 Each Patch.td24 1 Patch TD PRN DAILY PRN Trazodone Hcl 50 Mg Tablet 50 Mg PO PRN QHS PRN Risperdal (Risperidone) 1 Mg Tablet 1.5 Mg PO HS Analgesic [place] (Methyl Salicylate/Menthol) 28 Gm Oint...g. 1 Gerri TP PRN QID PRN Milk Of Magnesia (Magnesium Hydroxide) 400 Mg/5 Ml Oral.susp 400 Mg PO PRN DAILY PRN Mag-Al Plus Xs Suspension (Mag Hydrox/Al Hydrox/Simeth) 30 Ml Oral.susp 15 Ml PO PRN AFTMEALHC PRN Buspirone Hcl 10 Mg Tablet 10 Mg PO TID Baclofen 10 Mg Tablet 10 Mg PO QID Gabapentin 100 Mg Capsule 100 Mg PO QID Gabapentin 800 Mg Tablet 800 Mg PO QID Levothyroxine Sodium 50 Mcg Tablet 50 Mcg PO DAILYAC Klonopin (Clonazepam) 0.5 Mg Tablet 1 Mg PO BID Norvasc (Amlodipine Besylate) 10 Mg Tablet 10 Mg PO DAILY Oxybutynin Chloride 5 Mg Tablet 2.5 Mg PO BID Depakote Er (Divalproex Sodium) 500 Mg Tab.er.24h 1,500 Mg PO HS Klor-Con M20 (Potassium Chloride) 20 Meq Tab.er.prt 20 Meq PO DAILY Cymbalta (Duloxetine Hcl) 60 Mg Capsule.dr 60 Mg PO DAILY Multivitamin with Iron Tablet (Multivitamin/Iron/Folic Acid) 1 Each Tablet 1 Tab PO DAILY Flomax (Tamsulosin Hcl) 0.4 Mg Cap.er.24h 0.8 Mg PO DAILY Olanzapine 5 Mg Tablet 2.5 Mg PO PRN Q2HR PRN MDD 10mg/ 24 hrs Remeron (Mirtazapine) 15 Mg Tablet 7.5 Mg PO HS Bisacodyl 10 Mg Supp.rect 10 Mg RC PRN DAILY PRN Tylenol (Acetaminophen) 325 Mg Tablet 650 Mg PO PRN Q6HRS PRN I have reviewed the current psychotropics carefully including drug interactions. Risk benefit ratio favors no change other than as noted in my dictated progress note. Diagnosis: Problems: (1) Depression (2) Schizoaffective disorder (3) Anxiety disorder (4) Impulse control disorder (5) Schizophrenia, paranoid, chronic with acute exacerbation CATHY EMERY MD Aug 30, 2018 22:33
[2018-08-31 05:42] VITALS: BP 123/89
[2018-08-31] MEDS: LEVOTHYROXINE 50 MCG TABLET PO SCH (05:53)
[2018-08-31] MEDS: NICOTINE 21MG PATCH. TD SCH (08:38)
[2018-08-31] MEDS: POTASSIUM CHLORIDE 20 MEQ TABLET.ER. PO SCH (08:38)
[2018-08-31] MEDS: GABAPENTIN 300 MG CAPSULE. PO SCH ×4 (08:39→20:46)
[2018-08-31] MEDS: TAMSULOSIN 0.4 MG CAP.ER.24H. PO SCH (08:39)
[2018-08-31] MEDS: MULTIVITAMIN with MINERAL TABLET. PO SCH (08:39)
[2018-08-31] MEDS: OXYBUTYNIN CHLORIDE 5 MG TABLET PO SCH ×2 (08:39→20:46)
[2018-08-31] MEDS: busPIRone 10 MG TABLET. PO SCH ×3 (08:40→20:46)
[2018-08-31] MEDS: amLODIPine BESYLATE 10 MG TABLET PO SCH (08:40)
[2018-08-31] MEDS: clonazePAM 0.5 MG TABLET PO SCH ×2 (08:41→20:45)
[2018-08-31] MEDS: ACETAMINOPHEN 325 MG TABLET PO PRN (10:34)
[2018-08-31 15:47] VITALS: BP 117/82
--- NOTE | 2018-08-31 18:46 | PN ---
DATE: 08/30/2018 PSYCHIATRIC PROGRESS NOTE This is a late entry 08/30/2018, covers elements not covered in my initial note. SUBJECTIVE: I met with the patient in the evening. The patient slept 7-1/4 hours previous night. I met with him in his room. He is withdrawn, but appropriate. No suicidal ideation. REVIEW OF SYSTEMS: Ambulation impaired with walker. No CV, , pulmonary, eye, ENT system symptoms on review. He is fixated on discharge plans, some of which is understandable. MENTAL STATUS EXAM: Oriented to himself and situation. Speech has some latency, coherent. Abstraction fair, computation impaired, language function intact, attention span short. Mood and affect withdrawn, but improved. LABORATORY DATA: Reviewed. IMPRESSION: Schizoaffective disorder, bipolar type, mixed, in partial remission. Rest unchanged. PLAN: No change from initial note. MAN Ty EMERY MD DR: SARINA/nilda JOB#: [id number] / [id number]
[2018-08-31] MEDS: DIVALPROEX ER 500 MG TAB.ER.24H PO SCH (20:45)
[2018-08-31] MEDS: cloZAPine 100 MG TABLET PO SCH (20:46)
[2018-08-31] MEDS: risperiDONE 0.5 MG TABLET. PO SCH (20:46)
--- NOTE | 2018-08-31 22:02 | PN ---
DATE: 08/29/2018 PSYCHIATRIC PROGRESS NOTE This late entry 08/29/2018 covers elements, not covered in my initial note. SUBJECTIVE: The patient is wearing 3 layers of clothing, slept 6-1/2 hours, compliant with medication, somewhat withdrawn, ambulates with walker, quite fixated, obsessing about being discharged and social service staff is working diligently on this for appropriate placement. No suicidal or homicidal ideation. He is tolerating the Clozaril and we will further reduce the Risperdal in due course. MAN Ty EMERY MD DR: SARINA/nilda JOB#: [id number] / [id number]
--- NOTE | 2018-08-31 22:23 | PDOC ---
Exam Note: Nguyễn Note: Please also refer to the separate dictated note~for this date of service dictated separately.~Patient seen individually. Discussed the patient with Nursing staff reviewed the chart.~Reviewed interim history and current functioning. Reviewed vital signs,~Labs/ Radiology~and current medications noted below. Continue current treatment with the changes noted in the dictated addendum note Assessment: Vital Signs: Vital Signs Date Time Temp Pulse Resp B/P (MAP) Pulse Ox O2 Delivery O2 Flow Rate FiO2 08/31/18 15:47 97.9 87 18 117/82 (94) 95 08/31/18 05:42 Room Air I&O Intake and Output 08/31/18 07:01 Intake Total 1660 ml Balance 1660 ml Intake Oral 1660 ml # Bowel Movements 1 Current Medications: Meds: Current Medications Acetaminophen (Tylenol) 650 mg PRN Q6HRS PRN PO PAIN / TEMP Last administered on 08/31/18 10:34; Start 06/21/18 at 20:15 Clonazepam (KlonoPIN) 1 mg BID PO Last administered on 08/14/18 19:19; Start 06/21/18 at 21:00; Stop 08/14/18 at 21:25; Status DC Gabapentin (Neurontin) 900 mg QID PO Last administered on 07/08/18at 16:58; Start 06/21/18 at 21:00; Stop 07/08/18 at 17:47; Status DC Al Hydroxide/Mg Hydroxide (Mylanta Plus Xs) 15 ml PRN AFTMEALHC PRN PO GI SYMPTOMS Last administered on 08/22/18 09:18; Start 06/21/18 at 20:15 Magnesium Hydroxide (Milk Of Magnesia) 400 mg PRN DAILY PRN PO CONSTIPATION Last administered on 08/12/18 19:23; Start 06/21/18 at 20:15 Multi-Ingredient Ointment (Analgesic Cascade) 1 gerri PRN QID PRN TP MUSCLE PAIN Last administered on 08/26/18 11:32; Start 06/21/18 at 20:15 Oxybutynin Chloride (Ditropan) 2.5 mg BID PO Last administered on 08/31/18 20: 46; Start 06/21/18 at 21:00 Potassium Chloride (Klor-Con) 20 meq DAILY PO Last administered on 08/31/18 08 :38; Start 06/22/18 at 09:00 Tamsulosin HCl (Flomax) 0.8 mg DAILY PO Last administered on 08/31/18 08:39; Start 06/22/18 at 09:00 Amlodipine Besylate (Norvasc) 10 mg DAILY PO Last administered on 08/31/18 08: 40; Start 06/22/18 at 09:00 Baclofen (Lioresal) 10 mg QID PO Last administered on 07/07/18 19:36; Start 06/21/18 at 21:00; Stop 07/08/18 at 11:48; Status DC Bisacodyl (Dulcolax Supp) 10 mg PRN DAILY PRN [place] CONSTIPATION; Start 06/21/18 at 20:45 Buspirone HCl (Buspar) 10 mg TID PO Last administered on 08/31/18 20:46; Start 06/21/18 at 21:00 Divalproex Sodium (Depakote Er) 1,500 mg HS PO Last administered on 08/31/18 20:45; Start 06/21/18 at 21:00 Non-Formulary Medication (Gabapentin ) 800 mg QID PO ; Start 06/21/18 at 21:00 ; Status UNV Levothyroxine Sodium (Synthroid) 50 mcg DAILY06 PO Last administered on 05:53; Start 06/22/18 at 06:00 Multivitamins/ Calcium (Thera-M Plus) 1 tab DAILY PO Last administered on 08:39; Start 06/22/18 at 09:00 Olanzapine (ZyPREXA ZYDIS) 2.5 mg PRN Q2HR PRN PO PSYCHOSIS Last administered on 08/10/18 20:19; Start 06/21/18 at 20:45 Olanzapine (ZyPREXA) 5 mg BID PO Last administered on 06/23/18 08:47; Start 06/21/18 at 21:00; Stop 06/23/18 at 17:06; Status DC Risperidone (RisperDAL) 1.5 mg HS PO Last administered on 06/23/18 19:45; Start 06/21/18 at 21:00; Stop 06/24/18 at 11:06; Status DC Trazodone HCl (Desyrel) 50 mg PRN QHS PRN PO INSOMNIA Last administered on 20:19; Start 06/21/18 at 21:00; Stop 08/10/18 at 21:07; Status DC Nicotine (Nicoderm Cq 7mg) 1 patch PRN DAILY PRN TD SMOKING CESSATION; Start 06/21/18 at 23:30; Stop 07/09/18 at 05:39; Status DC Vitamin D (Vitamin D3) 50,000 unit WEEKLY PO Last administered on 08/25/18at 08: 06; Start 06/23/18 at 16:30 Olanzapine (ZyPREXA) 5 mg DAILY PO Last administered on 06/25/18at 08:04; Start 06/24/18 at 09:00; Stop 06/26/18 at 00:00; Status DC Risperidone (RisperDAL) 1.75 mg HS PO Last administered on 07/06/18at 20:08; Start 06/24/18 at 21:00; Stop 07/07/18 at 12:40; Status DC Risperidone (RisperDAL) 2 mg HS PO Last administered on 08/10/18at 20:15; Start 07/07/18 at 21:00; Stop 08/10/18 at 21:07; Status DC Gabapentin (Neurontin) 600 mg QID PO Last administered on 08/31/18at 20:46; Start 07/08/18 at 21:00 Nicotine (Nicoderm Cq 21mg) 1 patch DAILY TD Last administered on 07/30/18at 08 :54; Start 07/09/18 at 09:00; Stop 07/31/18 at 04:33; Status DC Clozapine (Clozaril) 25 mg DAILY PO Last administered on 07/27/18at 09:38; Start 07/13/18 at 09:00; Stop 07/27/18 at 16:52; Status DC Vitamin D (Vitamin D3) 50,000 unit WEEKLY PO ; Start 07/24/18 at 09:00; Status Cancel Clozapine (Clozaril) 50 mg DAILY PO Last administered on 08/03/18at 07:51; Start 07/28/18 at 09:00; Stop 08/03/18 at 21:09; Status DC Nicotine (Nicoderm Cq 21mg) 1 patch PRN DAILY PRN TD SMOKING CESSATION Last administered on 08/20/18 09:30; Start 07/31/18 at 04:45; Stop 08/21/18 at 10: 24; Status DC Clozapine (Clozaril) 75 mg HS PO Last administered on 08/08/18at 19:36; Start 08/04/18 at 21:00; Stop 08/09/18 at 17:33; Status DC Clozapine (Clozaril) 25 mg 1X ONCE PO Last administered on 08/03/18at 21:25; Start 08/03/18 at 21:30; Stop 08/03/18 at 21:31; Status DC Clozapine (Clozaril) 100 mg QHS PO Last administered on 08/15/18 20:03; Start 08/09/18 at 21:00; Stop 08/16/18 at 16:48; Status DC Risperidone (RisperDAL) 1.5 mg HS PO Last administered on 08/16/18 19:21; Start 08/11/18 at 21:00; Stop 08/17/18 at 16:27; Status DC Trazodone HCl (Desyrel) 50 mg QHS PO ; Start 08/11/18 at 21:00; Stop 08/11/18 at 21:00; Status DC Ondansetron HCl (Zofran Odt) 4 mg PRN Q8HRS PRN PO NAUSEA/VOMITING Last administered on 08/12/18 11:11; Start 08/12/18 at 10:45; Stop 08/12/18 at 16:29; Status DC Ondansetron HCl (Zofran Odt) 4 mg PRN Q4HRS PRN PO NAUSEA/VOMITING Last administered on 08/13/18 08:20; Start 08/12/18 at 16:30 Clonazepam (KlonoPIN) 0.75 mg DAILY PO Last administered on 08/31/18 08:41; Start 08/15/18 at 09:00 Clonazepam (KlonoPIN) 1 mg HS PO Last administered on 08/16/18 19:26; Start 08/15/18 at 21:00; Stop 08/16/18 at 21:00; Status DC Clonazepam (KlonoPIN) 0.75 mg HS PO Last administered on 08/31/18at 20:45; Start 08/17/18 at 21:00 Clozapine (Clozaril) 125 mg QHS PO Last administered on 08/22/18at 19:46; Start 08/16/18 at 21:00; Stop 08/23/18 at 16:56; Status DC Iohexol (Omnipaque 300 Mg/ml) 75 ml 1X ONCE IV ; Start 08/16/18 at 18:15; Stop 08/16/18 at 18:16; Status DC Iohexol (Omnipaque 300 Mg/ml) 75 ml 1X ONCE IV Last administered on 08/17/18at 09:12; Start 08/17/18 at 08:00; Stop 08/17/18 at 08:01; Status DC Iohexol (Omnipaque 300 Mg/ml) 75 ml 1X ONCE IV ; Start 08/17/18 at 09:00; Stop 08/17/18 at 09:02; Status DC Risperidone (RisperDAL) 1 mg QHS PO Last administered on 08/22/18at 19:46; Start 08/17/18 at 21:00; Stop 08/23/18 at 16:56; Status DC Nicotine (Nicoderm Cq 21mg) 1 patch DAILY TD Last administered on 08/31/18at 08: 38; Start 08/21/18 at 10:30 Clozapine (Clozaril) 150 mg QHS PO Last administered on 08/31/18at 20:46; Start 08/23/18 at 21:00 Risperidone (RisperDAL) 0.5 mg HS PO Last administered on 08/31/18at 20:46; Start 08/23/18 at 21:00 Active Scripts Active Reported Zyprexa (Olanzapine) 5 Mg Tablet 5 Mg PO BID NICODERM CQ 7mg (Nicotine) 1 Each Patch.td24 1 Patch TD PRN DAILY PRN Trazodone Hcl 50 Mg Tablet 50 Mg PO PRN QHS PRN Risperdal (Risperidone) 1 Mg Tablet 1.5 Mg PO HS Analgesic Cascade (Methyl Salicylate/Menthol) 28 Gm Oint...g. 1 Gerri TP PRN QID PRN Milk Of Magnesia (Magnesium Hydroxide) 400 Mg/5 Ml Oral.susp 400 Mg PO PRN DAILY PRN Mag-Al Plus Xs Suspension (Mag Hydrox/Al Hydrox/Simeth) 30 Ml Oral.susp 15 Ml PO PRN AFTMEALHC PRN Buspirone Hcl 10 Mg Tablet 10 Mg PO TID Baclofen 10 Mg Tablet 10 Mg PO QID Gabapentin 100 Mg Capsule 100 Mg PO QID Gabapentin 800 Mg Tablet 800 Mg PO QID Levothyroxine Sodium 50 Mcg Tablet 50 Mcg PO DAILYAC Klonopin (Clonazepam) 0.5 Mg Tablet 1 Mg PO BID Norvasc (Amlodipine Besylate) 10 Mg Tablet 10 Mg PO DAILY Oxybutynin Chloride 5 Mg Tablet 2.5 Mg PO BID Depakote Er (Divalproex Sodium) 500 Mg Tab.er.24h 1,500 Mg PO HS Klor-Con M20 (Potassium Chloride) 20 Meq Tab.er.prt 20 Meq PO DAILY Cymbalta (Duloxetine Hcl) 60 Mg Capsule.dr 60 Mg PO DAILY Multivitamin with Iron Tablet (Multivitamin/Iron/Folic Acid) 1 Each Tablet 1 Tab PO DAILY Flomax (Tamsulosin Hcl) 0.4 Mg Cap.er.24h 0.8 Mg PO DAILY Olanzapine 5 Mg Tablet 2.5 Mg PO PRN Q2HR PRN MDD 10mg/ 24 hrs Remeron (Mirtazapine) 15 Mg Tablet 7.5 Mg PO HS Bisacodyl 10 Mg Supp.rect 10 Mg RC PRN DAILY PRN Tylenol (Acetaminophen) 325 Mg Tablet 650 Mg PO PRN Q6HRS PRN I have reviewed the current psychotropics carefully including drug interactions. Risk benefit ratio favors no change other than as noted in my dictated progress note. Diagnosis: Problems: (1) Depression (2) Schizoaffective disorder (3) Anxiety disorder (4) Impulse control disorder (5) Schizophrenia, paranoid, chronic with acute exacerbation CATHY EMERY MD Aug 31, 2018 22:23
[2018-09-01] MEDS: LEVOTHYROXINE 50 MCG TABLET PO SCH (05:21)
[2018-09-01 06:19] VITALS: BP 146/97
[2018-09-01] MEDS: CHOLECALCIFEROL (VITAMIN D3) 50,000 UNIT CAPSULE PO SCH (08:07)
[2018-09-01] MEDS: POTASSIUM CHLORIDE 20 MEQ TABLET.ER. PO SCH (08:07)
[2018-09-01] MEDS: OXYBUTYNIN CHLORIDE 5 MG TABLET PO SCH ×2 (08:08→19:24)
[2018-09-01] MEDS: TAMSULOSIN 0.4 MG CAP.ER.24H. PO SCH (08:08)
[2018-09-01] MEDS: MULTIVITAMIN with MINERAL TABLET. PO SCH (08:08)
[2018-09-01] MEDS: busPIRone 10 MG TABLET. PO SCH ×3 (08:08→19:24)
[2018-09-01] MEDS: amLODIPine BESYLATE 10 MG TABLET PO SCH (08:08)
[2018-09-01] MEDS: NICOTINE 21MG PATCH. TD SCH (08:09)
[2018-09-01] MEDS: GABAPENTIN 300 MG CAPSULE. PO SCH ×4 (08:14→19:26)
[2018-09-01] MEDS: clonazePAM 0.5 MG TABLET PO SCH ×2 (08:20→19:26)
[2018-09-01 16:59] VITALS: BP 123/79
[2018-09-01] MEDS: DIVALPROEX ER 500 MG TAB.ER.24H PO SCH (19:23)
[2018-09-01] MEDS: cloZAPine 100 MG TABLET PO SCH (19:24)
[2018-09-01] MEDS: risperiDONE 0.5 MG TABLET. PO SCH (19:24)
--- NOTE | 2018-09-01 20:57 | PN ---
DATE: 08/31/2018 PSYCHIATRIC PROGRESS NOTE This late entry 08/31/2018 covers elements not covered in my initial note. SUBJECTIVE: Met with the patient in the evening in his room. The patient slept 8-1/4 hours previous night. REVIEW OF SYSTEMS: He is withdrawn, ambulates with a walker, but no CV, , pulmonary, eye system symptoms on review. MENTAL STATUS EXAM: Oriented to himself and situation. Speech has some latency, often responses monosyllabic. Abstraction fair, computation is impaired, language function intact, attention span short. Mood and affect somewhat withdrawn, but much less psychotic and he is tolerating the increased Clozaril. LABORATORY DATA: Reviewed. IMPRESSION: Schizoaffective disorder, bipolar type, mixed with psychotic features; anxiety disorder, unspecified. PLAN: Continue psychotropics from initial note. Clozaril was increased and in a day or so we will stop the Risperdal scheduled. Social service staff is actively looking for placement. CATHY EMERY MD DR: SARINA/nilda JOB#: [id number] / [id number]
--- NOTE | 2018-09-01 22:36 | PDOC ---
Exam Note: Nguyễn Note: Please also refer to the separate dictated note~for this date of service dictated separately.~Patient seen individually. Discussed the patient with Nursing staff reviewed the chart.~Reviewed interim history and current functioning. Reviewed vital signs,~Labs/ Radiology~and current medications noted below. Continue current treatment with the changes noted in the dictated addendum note Assessment: Vital Signs: Vital Signs Date Time Temp Pulse Resp B/P (MAP) Pulse Ox O2 Delivery O2 Flow Rate FiO2 09/01/18 16:59 98.1 89 20 123/79 (94) 93 08/31/18 05:42 Room Air I&O Intake and Output 09/01/18 07:01 Intake Total 1740 ml Balance 1740 ml Intake Oral 1740 ml # Bowel Movements 1 Current Medications: Meds: Current Medications Acetaminophen (Tylenol) 650 mg PRN Q6HRS PRN PO PAIN / TEMP Last administered on 08/31/18 10:34; Start 06/21/18 at 20:15 Clonazepam (KlonoPIN) 1 mg BID PO Last administered on 08/14/18 19:19; Start 06/21/18 at 21:00; Stop 08/14/18 at 21:25; Status DC Gabapentin (Neurontin) 900 mg QID PO Last administered on 07/08/18at 16:58; Start 06/21/18 at 21:00; Stop 07/08/18 at 17:47; Status DC Al Hydroxide/Mg Hydroxide (Mylanta Plus Xs) 15 ml PRN AFTMEALHC PRN PO GI SYMPTOMS Last administered on 08/22/18 09:18; Start 06/21/18 at 20:15 Magnesium Hydroxide (Milk Of Magnesia) 400 mg PRN DAILY PRN PO CONSTIPATION Last administered on 08/12/18 19:23; Start 06/21/18 at 20:15 Multi-Ingredient Ointment (Analgesic [place]) 1 gerri PRN QID PRN TP MUSCLE PAIN Last administered on 08/26/18 11:32; Start 06/21/18 at 20:15 Oxybutynin Chloride (Ditropan) 2.5 mg BID PO Last administered on 09/01/18 19: 24; Start 06/21/18 at 21:00 Potassium Chloride (Klor-Con) 20 meq DAILY PO Last administered on 09/01/18 08 :07; Start 06/22/18 at 09:00 Tamsulosin HCl (Flomax) 0.8 mg DAILY PO Last administered on 09/01/18 08:08; Start 06/22/18 at 09:00 Amlodipine Besylate (Norvasc) 10 mg DAILY PO Last administered on 09/01/18 08: 08; Start 06/22/18 at 09:00 Baclofen (Lioresal) 10 mg QID PO Last administered on 07/07/18 19:36; Start 06/21/18 at 21:00; Stop 07/08/18 at 11:48; Status DC Bisacodyl (Dulcolax Supp) 10 mg PRN DAILY PRN CO CONSTIPATION; Start 06/21/18 at 20:45 Buspirone HCl (Buspar) 10 mg TID PO Last administered on 09/01/18 19:24; Start 06/21/18 at 21:00 Divalproex Sodium (Depakote Er) 1,500 mg HS PO Last administered on 09/01/18 19:23; Start 06/21/18 at 21:00 Non-Formulary Medication (Gabapentin ) 800 mg QID PO ; Start 06/21/18 at 21:00 ; Status UNV Levothyroxine Sodium (Synthroid) 50 mcg DAILY06 PO Last administered on 05:21; Start 06/22/18 at 06:00 Multivitamins/ Calcium (Thera-M Plus) 1 tab DAILY PO Last administered on 08:08; Start 06/22/18 at 09:00 Olanzapine (ZyPREXA ZYDIS) 2.5 mg PRN Q2HR PRN PO PSYCHOSIS Last administered on 08/10/18 20:19; Start 06/21/18 at 20:45 Olanzapine (ZyPREXA) 5 mg BID PO Last administered on 06/23/18 08:47; Start 06/21/18 at 21:00; Stop 06/23/18 at 17:06; Status DC Risperidone (RisperDAL) 1.5 mg HS PO Last administered on 06/23/18 19:45; Start 06/21/18 at 21:00; Stop 06/24/18 at 11:06; Status DC Trazodone HCl (Desyrel) 50 mg PRN QHS PRN PO INSOMNIA Last administered on 20:19; Start 06/21/18 at 21:00; Stop 08/10/18 at 21:07; Status DC Nicotine (Nicoderm Cq 7mg) 1 patch PRN DAILY PRN TD SMOKING CESSATION; Start 06/21/18 at 23:30; Stop 07/09/18 at 05:39; Status DC Vitamin D (Vitamin D3) 50,000 unit WEEKLY PO Last administered on 09/01/18at 08: 07; Start 06/23/18 at 16:30 Olanzapine (ZyPREXA) 5 mg DAILY PO Last administered on 06/25/18at 08:04; Start 06/24/18 at 09:00; Stop 06/26/18 at 00:00; Status DC Risperidone (RisperDAL) 1.75 mg HS PO Last administered on 07/06/18at 20:08; Start 06/24/18 at 21:00; Stop 07/07/18 at 12:40; Status DC Risperidone (RisperDAL) 2 mg HS PO Last administered on 08/10/18at 20:15; Start 07/07/18 at 21:00; Stop 08/10/18 at 21:07; Status DC Gabapentin (Neurontin) 600 mg QID PO Last administered on 09/01/18at 19:26; Start 07/08/18 at 21:00 Nicotine (Nicoderm Cq 21mg) 1 patch DAILY TD Last administered on 07/30/18at 08 :54; Start 07/09/18 at 09:00; Stop 07/31/18 at 04:33; Status DC Clozapine (Clozaril) 25 mg DAILY PO Last administered on 07/27/18at 09:38; Start 07/13/18 at 09:00; Stop 07/27/18 at 16:52; Status DC Vitamin D (Vitamin D3) 50,000 unit WEEKLY PO ; Start 07/24/18 at 09:00; Status Cancel Clozapine (Clozaril) 50 mg DAILY PO Last administered on 08/03/18at 07:51; Start 07/28/18 at 09:00; Stop 08/03/18 at 21:09; Status DC Nicotine (Nicoderm Cq 21mg) 1 patch PRN DAILY PRN TD SMOKING CESSATION Last administered on 08/20/18 09:30; Start 07/31/18 at 04:45; Stop 08/21/18 at 10: 24; Status DC Clozapine (Clozaril) 75 mg HS PO Last administered on 08/08/18 19:36; Start 08/04/18 at 21:00; Stop 08/09/18 at 17:33; Status DC Clozapine (Clozaril) 25 mg 1X ONCE PO Last administered on 08/03/18at 21:25; Start 08/03/18 at 21:30; Stop 08/03/18 at 21:31; Status DC Clozapine (Clozaril) 100 mg QHS PO Last administered on 08/15/18 20:03; Start 08/09/18 at 21:00; Stop 08/16/18 at 16:48; Status DC Risperidone (RisperDAL) 1.5 mg HS PO Last administered on 08/16/18 19:21; Start 08/11/18 at 21:00; Stop 08/17/18 at 16:27; Status DC Trazodone HCl (Desyrel) 50 mg QHS PO ; Start 08/11/18 at 21:00; Stop 08/11/18 at 21:00; Status DC Ondansetron HCl (Zofran Odt) 4 mg PRN Q8HRS PRN PO NAUSEA/VOMITING Last administered on 08/12/18 11:11; Start 08/12/18 at 10:45; Stop 08/12/18 at 16:29; Status DC Ondansetron HCl (Zofran Odt) 4 mg PRN Q4HRS PRN PO NAUSEA/VOMITING Last administered on 08/13/18 08:20; Start 08/12/18 at 16:30 Clonazepam (KlonoPIN) 0.75 mg DAILY PO Last administered on 09/01/18 08:20; Start 08/15/18 at 09:00 Clonazepam (KlonoPIN) 1 mg HS PO Last administered on 08/16/18 19:26; Start 08/15/18 at 21:00; Stop 08/16/18 at 21:00; Status DC Clonazepam (KlonoPIN) 0.75 mg HS PO Last administered on 09/01/18 19:26; Start 08/17/18 at 21:00 Clozapine (Clozaril) 125 mg QHS PO Last administered on 08/22/18at 19:46; Start 08/16/18 at 21:00; Stop 08/23/18 at 16:56; Status DC Iohexol (Omnipaque 300 Mg/ml) 75 ml 1X ONCE IV ; Start 08/16/18 at 18:15; Stop 08/16/18 at 18:16; Status DC Iohexol (Omnipaque 300 Mg/ml) 75 ml 1X ONCE IV Last administered on 08/17/18at 09:12; Start 08/17/18 at 08:00; Stop 08/17/18 at 08:01; Status DC Iohexol (Omnipaque 300 Mg/ml) 75 ml 1X ONCE IV ; Start 08/17/18 at 09:00; Stop 08/17/18 at 09:02; Status DC Risperidone (RisperDAL) 1 mg QHS PO Last administered on 08/22/18at 19:46; Start 08/17/18 at 21:00; Stop 08/23/18 at 16:56; Status DC Nicotine (Nicoderm Cq 21mg) 1 patch DAILY TD Last administered on 09/01/18at 08: 09; Start 08/21/18 at 10:30 Clozapine (Clozaril) 150 mg QHS PO Last administered on 09/01/18at 19:24; Start 08/23/18 at 21:00 Risperidone (RisperDAL) 0.5 mg HS PO Last administered on 09/01/18at 19:24; Start 08/23/18 at 21:00 Active Scripts Active Reported Zyprexa (Olanzapine) 5 Mg Tablet 5 Mg PO BID NICODERM CQ 7mg (Nicotine) 1 Each Patch.td24 1 Patch TD PRN DAILY PRN Trazodone Hcl 50 Mg Tablet 50 Mg PO PRN QHS PRN Risperdal (Risperidone) 1 Mg Tablet 1.5 Mg PO HS Analgesic [place] (Methyl Salicylate/Menthol) 28 Gm Oint...g. 1 Gerri TP PRN QID PRN Milk Of Magnesia (Magnesium Hydroxide) 400 Mg/5 Ml Oral.susp 400 Mg PO PRN DAILY PRN Mag-Al Plus Xs Suspension (Mag Hydrox/Al Hydrox/Simeth) 30 Ml Oral.susp 15 Ml PO PRN AFTMEALHC PRN Buspirone Hcl 10 Mg Tablet 10 Mg PO TID Baclofen 10 Mg Tablet 10 Mg PO QID Gabapentin 100 Mg Capsule 100 Mg PO QID Gabapentin 800 Mg Tablet 800 Mg PO QID Levothyroxine Sodium 50 Mcg Tablet 50 Mcg PO DAILYAC Klonopin (Clonazepam) 0.5 Mg Tablet 1 Mg PO BID Norvasc (Amlodipine Besylate) 10 Mg Tablet 10 Mg PO DAILY Oxybutynin Chloride 5 Mg Tablet 2.5 Mg PO BID Depakote Er (Divalproex Sodium) 500 Mg Tab.er.24h 1,500 Mg PO HS Klor-Con M20 (Potassium Chloride) 20 Meq Tab.er.prt 20 Meq PO DAILY Cymbalta (Duloxetine Hcl) 60 Mg Capsule.dr 60 Mg PO DAILY Multivitamin with Iron Tablet (Multivitamin/Iron/Folic Acid) 1 Each Tablet 1 Tab PO DAILY Flomax (Tamsulosin Hcl) 0.4 Mg Cap.er.24h 0.8 Mg PO DAILY Olanzapine 5 Mg Tablet 2.5 Mg PO PRN Q2HR PRN MDD 10mg/ 24 hrs Remeron (Mirtazapine) 15 Mg Tablet 7.5 Mg PO HS Bisacodyl 10 Mg Supp.rect 10 Mg RC PRN DAILY PRN Tylenol (Acetaminophen) 325 Mg Tablet 650 Mg PO PRN Q6HRS PRN I have reviewed the current psychotropics carefully including drug interactions. Risk benefit ratio favors no change other than as noted in my dictated progress note. Diagnosis: Problems: (1) Depression (2) Schizoaffective disorder (3) Anxiety disorder (4) Impulse control disorder (5) Schizophrenia, paranoid, chronic with acute exacerbation CATHY EMERY MD Sep 01, 2018 22:36
[2018-09-02 05:35] VITALS: BP 122/76
[2018-09-02] MEDS: LEVOTHYROXINE 50 MCG TABLET PO SCH (05:40)
[2018-09-02] MEDS: MULTIVITAMIN with MINERAL TABLET. PO SCH (08:42)
[2018-09-02] MEDS: POTASSIUM CHLORIDE 20 MEQ TABLET.ER. PO SCH (08:42)
[2018-09-02] MEDS: TAMSULOSIN 0.4 MG CAP.ER.24H. PO SCH (08:42)
[2018-09-02] MEDS: OXYBUTYNIN CHLORIDE 5 MG TABLET PO SCH ×2 (08:43→19:55)
[2018-09-02] MEDS: amLODIPine BESYLATE 10 MG TABLET PO SCH (08:43)
[2018-09-02] MEDS: busPIRone 10 MG TABLET. PO SCH ×3 (08:43→19:57)
[2018-09-02] MEDS: NICOTINE 21MG PATCH. TD SCH (08:43)
[2018-09-02] MEDS: GABAPENTIN 300 MG CAPSULE. PO SCH ×4 (08:49→19:55)
[2018-09-02] MEDS: clonazePAM 0.5 MG TABLET PO SCH ×2 (08:49→19:55)
[2018-09-02 16:40] VITALS: BP 113/79
[2018-09-02] MEDS: cloZAPine 100 MG TABLET PO SCH (19:53)
[2018-09-02] MEDS: DIVALPROEX ER 500 MG TAB.ER.24H PO SCH (19:54)
[2018-09-02] MEDS: risperiDONE 0.5 MG TABLET. PO SCH (19:55)
--- NOTE | 2018-09-02 22:49 | PDOC ---
Exam Note: Nguyễn Note: Please also refer to the separate dictated note~for this date of service dictated separately.~Patient seen individually. Discussed the patient with Nursing staff reviewed the chart.~Reviewed interim history and current functioning. Reviewed vital signs,~Labs/ Radiology~and current medications noted below. Continue current treatment with the changes noted in the dictated addendum note Assessment: Vital Signs: Vital Signs Date Time Temp Pulse Resp B/P (MAP) Pulse Ox O2 Delivery O2 Flow Rate FiO2 09/02/18 16:40 98.9 94 18 113/79 (90) 94 08/31/18 05:42 Room Air I&O Intake and Output 09/02/18 07:01 Intake Total 1080 ml Balance 1080 ml Intake Oral 1080 ml Current Medications: Meds: Current Medications Acetaminophen (Tylenol) 650 mg PRN Q6HRS PRN PO PAIN / TEMP Last administered on 08/31/18 10:34; Start 06/21/18 at 20:15 Clonazepam (KlonoPIN) 1 mg BID PO Last administered on 08/14/18 19:19; Start 06/21/18 at 21:00; Stop 08/14/18 at 21:25; Status DC Gabapentin (Neurontin) 900 mg QID PO Last administered on 07/08/18at 16:58; Start 06/21/18 at 21:00; Stop 07/08/18 at 17:47; Status DC Al Hydroxide/Mg Hydroxide (Mylanta Plus Xs) 15 ml PRN AFTMEALHC PRN PO GI SYMPTOMS Last administered on 08/22/18 09:18; Start 06/21/18 at 20:15 Magnesium Hydroxide (Milk Of Magnesia) 400 mg PRN DAILY PRN PO CONSTIPATION Last administered on 08/12/18 19:23; Start 06/21/18 at 20:15 Multi-Ingredient Ointment (Analgesic [place]) 1 gerri PRN QID PRN TP MUSCLE PAIN Last administered on 08/26/18 11:32; Start 06/21/18 at 20:15 Oxybutynin Chloride (Ditropan) 2.5 mg BID PO Last administered on 09/02/18 19: 55; Start 06/21/18 at 21:00 Potassium Chloride (Klor-Con) 20 meq DAILY PO Last administered on 09/02/18 08 :42; Start 06/22/18 at 09:00 Tamsulosin HCl (Flomax) 0.8 mg DAILY PO Last administered on 09/02/18 08:42; Start 06/22/18 at 09:00 Amlodipine Besylate (Norvasc) 10 mg DAILY PO Last administered on 09/02/18 08: 43; Start 06/22/18 at 09:00 Baclofen (Lioresal) 10 mg QID PO Last administered on 07/07/18 19:36; Start 06/21/18 at 21:00; Stop 07/08/18 at 11:48; Status DC Bisacodyl (Dulcolax Supp) 10 mg PRN DAILY PRN PA CONSTIPATION; Start 06/21/18 at 20:45 Buspirone HCl (Buspar) 10 mg TID PO Last administered on 09/02/18 19:57; Start 06/21/18 at 21:00 Divalproex Sodium (Depakote Er) 1,500 mg HS PO Last administered on 09/02/18 19:54; Start 06/21/18 at 21:00 Non-Formulary Medication (Gabapentin ) 800 mg QID PO ; Start 06/21/18 at 21:00 ; Status UNV Levothyroxine Sodium (Synthroid) 50 mcg DAILY06 PO Last administered on 05:40; Start 06/22/18 at 06:00 Multivitamins/ Calcium (Thera-M Plus) 1 tab DAILY PO Last administered on 08:42; Start 06/22/18 at 09:00 Olanzapine (ZyPREXA ZYDIS) 2.5 mg PRN Q2HR PRN PO PSYCHOSIS Last administered on 08/10/18 20:19; Start 06/21/18 at 20:45 Olanzapine (ZyPREXA) 5 mg BID PO Last administered on 06/23/18 08:47; Start 06/21/18 at 21:00; Stop 06/23/18 at 17:06; Status DC Risperidone (RisperDAL) 1.5 mg HS PO Last administered on 06/23/18 19:45; Start 06/21/18 at 21:00; Stop 06/24/18 at 11:06; Status DC Trazodone HCl (Desyrel) 50 mg PRN QHS PRN PO INSOMNIA Last administered on 20:19; Start 06/21/18 at 21:00; Stop 08/10/18 at 21:07; Status DC Nicotine (Nicoderm Cq 7mg) 1 patch PRN DAILY PRN TD SMOKING CESSATION; Start 06/21/18 at 23:30; Stop 07/09/18 at 05:39; Status DC Vitamin D (Vitamin D3) 50,000 unit WEEKLY PO Last administered on 09/01/18at 08: 07; Start 06/23/18 at 16:30 Olanzapine (ZyPREXA) 5 mg DAILY PO Last administered on 06/25/18at 08:04; Start 06/24/18 at 09:00; Stop 06/26/18 at 00:00; Status DC Risperidone (RisperDAL) 1.75 mg HS PO Last administered on 07/06/18at 20:08; Start 06/24/18 at 21:00; Stop 07/07/18 at 12:40; Status DC Risperidone (RisperDAL) 2 mg HS PO Last administered on 08/10/18at 20:15; Start 07/07/18 at 21:00; Stop 08/10/18 at 21:07; Status DC Gabapentin (Neurontin) 600 mg QID PO Last administered on 09/02/18at 19:55; Start 07/08/18 at 21:00 Nicotine (Nicoderm Cq 21mg) 1 patch DAILY TD Last administered on 07/30/18at 08 :54; Start 07/09/18 at 09:00; Stop 07/31/18 at 04:33; Status DC Clozapine (Clozaril) 25 mg DAILY PO Last administered on 07/27/18at 09:38; Start 07/13/18 at 09:00; Stop 07/27/18 at 16:52; Status DC Vitamin D (Vitamin D3) 50,000 unit WEEKLY PO ; Start 07/24/18 at 09:00; Status Cancel Clozapine (Clozaril) 50 mg DAILY PO Last administered on 08/03/18at 07:51; Start 07/28/18 at 09:00; Stop 08/03/18 at 21:09; Status DC Nicotine (Nicoderm Cq 21mg) 1 patch PRN DAILY PRN TD SMOKING CESSATION Last administered on 08/20/18at 09:30; Start 07/31/18 at 04:45; Stop 08/21/18 at 10: 24; Status DC Clozapine (Clozaril) 75 mg HS PO Last administered on 08/08/18at 19:36; Start 08/04/18 at 21:00; Stop 08/09/18 at 17:33; Status DC Clozapine (Clozaril) 25 mg 1X ONCE PO Last administered on 08/03/18at 21:25; Start 08/03/18 at 21:30; Stop 08/03/18 at 21:31; Status DC Clozapine (Clozaril) 100 mg QHS PO Last administered on 08/15/18 20:03; Start 08/09/18 at 21:00; Stop 08/16/18 at 16:48; Status DC Risperidone (RisperDAL) 1.5 mg HS PO Last administered on 08/16/18 19:21; Start 08/11/18 at 21:00; Stop 08/17/18 at 16:27; Status DC Trazodone HCl (Desyrel) 50 mg QHS PO ; Start 08/11/18 at 21:00; Stop 08/11/18 at 21:00; Status DC Ondansetron HCl (Zofran Odt) 4 mg PRN Q8HRS PRN PO NAUSEA/VOMITING Last administered on 08/12/18 11:11; Start 08/12/18 at 10:45; Stop 08/12/18 at 16:29; Status DC Ondansetron HCl (Zofran Odt) 4 mg PRN Q4HRS PRN PO NAUSEA/VOMITING Last administered on 08/13/18 08:20; Start 08/12/18 at 16:30 Clonazepam (KlonoPIN) 0.75 mg DAILY PO Last administered on 09/02/18 08:49; Start 08/15/18 at 09:00 Clonazepam (KlonoPIN) 1 mg HS PO Last administered on 08/16/18 19:26; Start 08/15/18 at 21:00; Stop 08/16/18 at 21:00; Status DC Clonazepam (KlonoPIN) 0.75 mg HS PO Last administered on 09/02/18 19:55; Start 08/17/18 at 21:00 Clozapine (Clozaril) 125 mg QHS PO Last administered on 08/22/18 19:46; Start 08/16/18 at 21:00; Stop 08/23/18 at 16:56; Status DC Iohexol (Omnipaque 300 Mg/ml) 75 ml 1X ONCE IV ; Start 08/16/18 at 18:15; Stop 08/16/18 at 18:16; Status DC Iohexol (Omnipaque 300 Mg/ml) 75 ml 1X ONCE IV Last administered on 08/17/18at 09:12; Start 08/17/18 at 08:00; Stop 08/17/18 at 08:01; Status DC Iohexol (Omnipaque 300 Mg/ml) 75 ml 1X ONCE IV ; Start 08/17/18 at 09:00; Stop 08/17/18 at 09:02; Status DC Risperidone (RisperDAL) 1 mg QHS PO Last administered on 08/22/18at 19:46; Start 08/17/18 at 21:00; Stop 08/23/18 at 16:56; Status DC Nicotine (Nicoderm Cq 21mg) 1 patch DAILY TD Last administered on 09/02/18at 08: 43; Start 08/21/18 at 10:30 Clozapine (Clozaril) 150 mg QHS PO Last administered on 09/02/18 19:53; Start 08/23/18 at 21:00 Risperidone (RisperDAL) 0.5 mg HS PO Last administered on 09/02/18 19:55; Start 08/23/18 at 21:00 Active Scripts Active Reported Zyprexa (Olanzapine) 5 Mg Tablet 5 Mg PO BID NICODERM CQ 7mg (Nicotine) 1 Each Patch.td24 1 Patch TD PRN DAILY PRN Trazodone Hcl 50 Mg Tablet 50 Mg PO PRN QHS PRN Risperdal (Risperidone) 1 Mg Tablet 1.5 Mg PO HS Analgesic [place] (Methyl Salicylate/Menthol) 28 Gm Oint...g. 1 Gerri TP PRN QID PRN Milk Of Magnesia (Magnesium Hydroxide) 400 Mg/5 Ml Oral.susp 400 Mg PO PRN DAILY PRN Mag-Al Plus Xs Suspension (Mag Hydrox/Al Hydrox/Simeth) 30 Ml Oral.susp 15 Ml PO PRN AFTMEALHC PRN Buspirone Hcl 10 Mg Tablet 10 Mg PO TID Baclofen 10 Mg Tablet 10 Mg PO QID Gabapentin 100 Mg Capsule 100 Mg PO QID Gabapentin 800 Mg Tablet 800 Mg PO QID Levothyroxine Sodium 50 Mcg Tablet 50 Mcg PO DAILYAC Klonopin (Clonazepam) 0.5 Mg Tablet 1 Mg PO BID Norvasc (Amlodipine Besylate) 10 Mg Tablet 10 Mg PO DAILY Oxybutynin Chloride 5 Mg Tablet 2.5 Mg PO BID Depakote Er (Divalproex Sodium) 500 Mg Tab.er.24h 1,500 Mg PO HS Klor-Con M20 (Potassium Chloride) 20 Meq Tab.er.prt 20 Meq PO DAILY Cymbalta (Duloxetine Hcl) 60 Mg Capsule.dr 60 Mg PO DAILY Multivitamin with Iron Tablet (Multivitamin/Iron/Folic Acid) 1 Each Tablet 1 Tab PO DAILY Flomax (Tamsulosin Hcl) 0.4 Mg Cap.er.24h 0.8 Mg PO DAILY Olanzapine 5 Mg Tablet 2.5 Mg PO PRN Q2HR PRN MDD 10mg/ 24 hrs Remeron (Mirtazapine) 15 Mg Tablet 7.5 Mg PO HS Bisacodyl 10 Mg Supp.rect 10 Mg RC PRN DAILY PRN Tylenol (Acetaminophen) 325 Mg Tablet 650 Mg PO PRN Q6HRS PRN I have reviewed the current psychotropics carefully including drug interactions. Risk benefit ratio favors no change other than as noted in my dictated progress note. Diagnosis: Problems: (1) Depression (2) Schizoaffective disorder (3) Anxiety disorder (4) Impulse control disorder (5) Schizophrenia, paranoid, chronic with acute exacerbation CATHY EMERY MD Sep 02, 2018 22:49
[2018-09-03] MEDS: LEVOTHYROXINE 50 MCG TABLET PO SCH (05:58)
[2018-09-03 06:00] VITALS: BP 96/71
[2018-09-03 06:59] LABS: BASO # 0.1 x10^3/uL (0.0-0.2); BASO % 1 % (0-3); EOS # 0.3 x10^3/uL (0.0-0.7); EOS % 3 % (0-3); HEMATOCRIT 43.9 % (39.0-53.0); HEMOGLOBIN 14.6 g/dL (13.0-17.5); LYMPH # 1.7 x10^3/uL (1.0-4.8); LYMPH % 16 % (24-48); MEAN CORPUSCULAR HEMOGLOBIN 29 pg (25-35); MEAN CORPUSCULAR HGB CONC 33 g/dL (31-37); MEAN CORPUSCULAR VOLUME 88 fL (79-100); MONO # 0.7 x10^3/uL (0.0-1.1); MONO % 6 % (0-9); NEUT % 75 % (31-73); PLATELET COUNT 370 x10^3/uL (140-400); RED BLOOD COUNT 4.99 x10^6/uL (4.30-5.70); RED CELL DISTRIBUTION WIDTH 13.6 % (11.5-14.5); WHITE BLOOD COUNT 10.7 x10^3/uL (4.0-11.0)
[2018-09-03 07:21] LABS: ALBUMIN 2.9 g/dL (3.4-5.0); ALBUMIN/GLOBULIN RATIO 0.7 (1.0-1.7); CALCIUM 8.4 mg/dL (8.5-10.1); CREATININE 0.8 mg/dL (0.7-1.3); GFR 99.6; POTASSIUM 3.9 mmol/L (3.5-5.1); TOTAL BILIRUBIN 0.3 mg/dL (0.2-1.0); TOTAL PROTEIN 6.8 g/dL (6.4-8.2)
[2018-09-03] MEDS: MULTIVITAMIN with MINERAL TABLET. PO SCH (07:29)
[2018-09-03] MEDS: OXYBUTYNIN CHLORIDE 5 MG TABLET PO SCH ×2 (07:29→21:03)
[2018-09-03] MEDS: busPIRone 10 MG TABLET. PO SCH ×3 (07:29→21:02)
[2018-09-03] MEDS: POTASSIUM CHLORIDE 20 MEQ TABLET.ER. PO SCH (07:30)
[2018-09-03] MEDS: TAMSULOSIN 0.4 MG CAP.ER.24H. PO SCH (07:30)
[2018-09-03] MEDS: GABAPENTIN 300 MG CAPSULE. PO SCH ×4 (07:31→21:03)
[2018-09-03] MEDS: NICOTINE 21MG PATCH. TD SCH (07:31)
[2018-09-03] MEDS: clonazePAM 0.5 MG TABLET PO SCH ×2 (07:33→21:06)
[2018-09-03] MEDS: amLODIPine BESYLATE 10 MG TABLET PO SCH (07:43)
--- NOTE | 2018-09-03 16:05 | PN ---
DATE: 09/01/2018 PSYCHIATRIC PROGRESS NOTE This is a late entry 09/01/2018 covers elements not covered in my initial note. SUBJECTIVE: I met with the patient in the evening. The patient slept 7-3/4 hours previous night. He remains somewhat withdrawn, met with him in his room. He has been somewhat paranoid, telling nursing staff "they can hear us downstairs." On close questioning, however, no active hallucinations, suicidal or homicidal ideation. REVIEW OF SYSTEMS: Ambulation impaired with walker. No CV, , pulmonary, eye system symptoms on review. MENTAL STATUS EXAM: Oriented to himself and situation. Speech is coherent, has some latency, low in volume. Abstraction fair, computation impaired, language function intact. Mood and affect still somewhat withdrawn, but improved. LABORATORY DATA: Reviewed. IMPRESSION: Unchanged from initial note. PLAN: No change from initial note. Discussed with social service staff about transition to a lower level of care as soon as possible. CATHY EMERY MD DR: SARINA/nilda JOB#: [id number] / [id number]
[2018-09-03 16:50] VITALS: BP 123/78
[2018-09-03] MEDS: cloZAPine 100 MG TABLET PO SCH (21:02)
[2018-09-03] MEDS: risperiDONE 0.5 MG TABLET. PO SCH (21:02)
[2018-09-03] MEDS: DIVALPROEX ER 500 MG TAB.ER.24H PO SCH (21:02)
--- NOTE | 2018-09-03 21:05 | PN ---
DATE: 09/02/2018 PSYCHIATRIC PROGRESS NOTE This late entry 09/02/2018 covers elements not covered in my initial note. SUBJECTIVE: I met with the patient in the evening and staffed at a treatment team meeting with the entire team in the morning. The patient slept 7-1/2 hours. Appetite is 75%. He is little more interactive, less paranoid, tolerating increasing Clozaril dosage. Discussed with social service staff about placement and level 2 to be changed to [place] and they are actively pursuing it with the state authorities. REVIEW OF SYSTEMS: Ambulation impaired with walker. No CV, , pulmonary, eye system symptoms on review. MENTAL STATUS EXAM: Oriented to himself and situation. Speech is coherent, has some latency. Abstraction fair, computation impaired, language function intact, attention span short. Mood and affect remain somewhat withdrawn, but improved. LABORATORY DATA: Reviewed. IMPRESSION: Schizoaffective disorder, bipolar type, mixed with psychotic features, in partial remission; anxiety disorder, unspecified. Rest unchanged. PLAN: Continue psychotropics from initial note. MAN Ty EMERY MD DR: SARINA/nilda JOB#: [id number] / [id number]
--- NOTE | 2018-09-03 22:38 | PDOC ---
Exam Note: Nguyễn Note: Please also refer to the separate dictated note~for this date of service dictated separately.~Patient seen individually. Discussed the patient with Nursing staff reviewed the chart.~Reviewed interim history and current functioning. Reviewed vital signs,~Labs/ Radiology~and current medications noted below. Continue current treatment with the changes noted in the dictated addendum note Assessment: Vital Signs: Vital Signs Date Time Temp Pulse Resp B/P (MAP) Pulse Ox O2 Delivery O2 Flow Rate FiO2 09/03/18 16:50 98.4 95 20 123/78 (93) 96 Room Air I&O Intake and Output 09/03/18 07:01 Intake Total 1080 ml Balance 1080 ml Intake Oral 1080 ml # Voids 1 Labs: Laboratory Tests Test 09/03/18 06:17 White Blood Count 10.7 x10^3/uL (4.0-11.0) Red Blood Count 4.99 x10^6/uL (4.30-5.70) Hemoglobin 14.6 g/dL (13.0-17.5) Hematocrit 43.9 % (39.0-53.0) Mean Corpuscular Volume 88 fL (79-100) Mean Corpuscular Hemoglobin 29 pg (25-35) Mean Corpuscular Hemoglobin Concent 33 g/dL (31-37) Red Cell Distribution Width 13.6 % (11.5-14.5) Platelet Count 370 x10^3/uL (140-400) Neutrophils (%) (Auto) 75 % (31-73) H Lymphocytes (%) (Auto) 16 % (24-48) L Monocytes (%) (Auto) 6 % (0-9) Eosinophils (%) (Auto) 3 % (0-3) Basophils (%) (Auto) 1 % (0-3) Neutrophils # (Auto) 8.0 x10^3uL (1.8-7.7) H Lymphocytes # (Auto) 1.7 x10^3/uL (1.0-4.8) Monocytes # (Auto) 0.7 x10^3/uL (0.0-1.1) Eosinophils # (Auto) 0.3 x10^3/uL (0.0-0.7) Basophils # (Auto) 0.1 x10^3/uL (0.0-0.2) Sodium Level 135 mmol/L (136-145) L Potassium Level 3.9 mmol/L (3.5-5.1) Chloride Level 99 mmol/L (98-107) Carbon Dioxide Level 25 mmol/L (21-32) Anion Gap 11 (6-14) Blood Urea Nitrogen 10 mg/dL (8-26) Creatinine 0.8 mg/dL (0.7-1.3) Estimated GFR (Cockcroft-Gault) 99.6 BUN/Creatinine Ratio 13 (6-20) Glucose Level 174 mg/dL (70-99) H Calcium Level 8.4 mg/dL (8.5-10.1) L Total Bilirubin 0.3 mg/dL (0.2-1.0) Aspartate Amino Transferase (AST) 20 U/L (15-37) Alanine Aminotransferase (ALT) 28 U/L (16-63) Alkaline Phosphatase 59 U/L (46-116) Total Protein 6.8 g/dL (6.4-8.2) Albumin 2.9 g/dL (3.4-5.0) L Albumin/Globulin Ratio 0.7 (1.0-1.7) L Current Medications: Meds: Current Medications Acetaminophen (Tylenol) 650 mg PRN Q6HRS PRN PO PAIN / TEMP Last administered on 08/31/18 10:34; Start 06/21/18 at 20:15 Clonazepam (KlonoPIN) 1 mg BID PO Last administered on 08/14/18 19:19; Start 06/21/18 at 21:00; Stop 08/14/18 at 21:25; Status DC Gabapentin (Neurontin) 900 mg QID PO Last administered on 07/08/18at 16:58; Start 06/21/18 at 21:00; Stop 07/08/18 at 17:47; Status DC Al Hydroxide/Mg Hydroxide (Mylanta Plus Xs) 15 ml PRN AFTMEALHC PRN PO GI SYMPTOMS Last administered on 08/22/18 09:18; Start 06/21/18 at 20:15 Magnesium Hydroxide (Milk Of Magnesia) 400 mg PRN DAILY PRN PO CONSTIPATION Last administered on 08/12/18 19:23; Start 06/21/18 at 20:15 Multi-Ingredient Ointment (Analgesic [place]) 1 gerri PRN QID PRN TP MUSCLE PAIN Last administered on 08/26/18 11:32; Start 06/21/18 at 20:15 Oxybutynin Chloride (Ditropan) 2.5 mg BID PO Last administered on 09/03/18 21: 03; Start 06/21/18 at 21:00 Potassium Chloride (Klor-Con) 20 meq DAILY PO Last administered on 09/03/18 07 :30; Start 06/22/18 at 09:00 Tamsulosin HCl (Flomax) 0.8 mg DAILY PO Last administered on 09/03/18 07:30; Start 06/22/18 at 09:00 Amlodipine Besylate (Norvasc) 10 mg DAILY PO Last administered on 09/03/18 07: 43; Start 06/22/18 at 09:00 Baclofen (Lioresal) 10 mg QID PO Last administered on 07/07/18 19:36; Start 06/21/18 at 21:00; Stop 07/08/18 at 11:48; Status DC Bisacodyl (Dulcolax Supp) 10 mg PRN DAILY PRN [place] CONSTIPATION; Start 06/21/18 at 20:45 Buspirone HCl (Buspar) 10 mg TID PO Last administered on 09/03/18 21:02; Start 06/21/18 at 21:00 Divalproex Sodium (Depakote Er) 1,500 mg HS PO Last administered on 09/03/18 21:02; Start 06/21/18 at 21:00 Non-Formulary Medication (Gabapentin ) 800 mg QID PO ; Start 06/21/18 at 21:00 ; Status UNV Levothyroxine Sodium (Synthroid) 50 mcg DAILY06 PO Last administered on 05:58; Start 06/22/18 at 06:00 Multivitamins/ Calcium (Thera-M Plus) 1 tab DAILY PO Last administered on 07:29; Start 06/22/18 at 09:00 Olanzapine (ZyPREXA ZYDIS) 2.5 mg PRN Q2HR PRN PO PSYCHOSIS Last administered on 08/10/18 20:19; Start 06/21/18 at 20:45 Olanzapine (ZyPREXA) 5 mg BID PO Last administered on 11/14/18at 08:47; Start 06/21/18 at 21:00; Stop 06/23/18 at 17:06; Status DC Risperidone (RisperDAL) 1.5 mg HS PO Last administered on 06/23/18at 19:45; Start 06/21/18 at 21:00; Stop 06/24/18 at 11:06; Status DC Trazodone HCl (Desyrel) 50 mg PRN QHS PRN PO INSOMNIA Last administered on 20:19; Start 06/21/18 at 21:00; Stop 08/10/18 at 21:07; Status DC Nicotine (Nicoderm Cq 7mg) 1 patch PRN DAILY PRN TD SMOKING CESSATION; Start 06/21/18 at 23:30; Stop 07/09/18 at 05:39; Status DC Vitamin D (Vitamin D3) 50,000 unit WEEKLY PO Last administered on 09/01/18at 08: 07; Start 06/23/18 at 16:30 Olanzapine (ZyPREXA) 5 mg DAILY PO Last administered on 06/25/18at 08:04; Start 06/24/18 at 09:00; Stop 06/26/18 at 00:00; Status DC Risperidone (RisperDAL) 1.75 mg HS PO Last administered on 07/06/18at 20:08; Start 06/24/18 at 21:00; Stop 07/07/18 at 12:40; Status DC Risperidone (RisperDAL) 2 mg HS PO Last administered on 08/10/18at 20:15; Start 07/07/18 at 21:00; Stop 08/10/18 at 21:07; Status DC Gabapentin (Neurontin) 600 mg QID PO Last administered on 09/03/18at 21:03; Start 07/08/18 at 21:00 Nicotine (Nicoderm Cq 21mg) 1 patch DAILY TD Last administered on 07/30/18at 08 :54; Start 07/09/18 at 09:00; Stop 07/31/18 at 04:33; Status DC Clozapine (Clozaril) 25 mg DAILY PO Last administered on 07/27/18at 09:38; Start 07/13/18 at 09:00; Stop 07/27/18 at 16:52; Status DC Vitamin D (Vitamin D3) 50,000 unit WEEKLY PO ; Start 07/24/18 at 09:00; Status Cancel Clozapine (Clozaril) 50 mg DAILY PO Last administered on 08/03/18at 07:51; Start 07/28/18 at 09:00; Stop 08/03/18 at 21:09; Status DC Nicotine (Nicoderm Cq 21mg) 1 patch PRN DAILY PRN TD SMOKING CESSATION Last administered on 08/20/18 09:30; Start 07/31/18 at 04:45; Stop 08/21/18 at 10: 24; Status DC Clozapine (Clozaril) 75 mg HS PO Last administered on 08/08/18at 19:36; Start 08/04/18 at 21:00; Stop 08/09/18 at 17:33; Status DC Clozapine (Clozaril) 25 mg 1X ONCE PO Last administered on 08/03/18at 21:25; Start 08/03/18 at 21:30; Stop 08/03/18 at 21:31; Status DC Clozapine (Clozaril) 100 mg QHS PO Last administered on 08/15/18at 20:03; Start 08/09/18 at 21:00; Stop 08/16/18 at 16:48; Status DC Risperidone (RisperDAL) 1.5 mg HS PO Last administered on 08/16/18 19:21; Start 08/11/18 at 21:00; Stop 08/17/18 at 16:27; Status DC Trazodone HCl (Desyrel) 50 mg QHS PO ; Start 08/11/18 at 21:00; Stop 08/11/18 at 21:00; Status DC Ondansetron HCl (Zofran Odt) 4 mg PRN Q8HRS PRN PO NAUSEA/VOMITING Last administered on 08/12/18 11:11; Start 08/12/18 at 10:45; Stop 08/12/18 at 16:29; Status DC Ondansetron HCl (Zofran Odt) 4 mg PRN Q4HRS PRN PO NAUSEA/VOMITING Last administered on 08/13/18 08:20; Start 08/12/18 at 16:30 Clonazepam (KlonoPIN) 0.75 mg DAILY PO Last administered on 09/03/18at 07:33; Start 08/15/18 at 09:00 Clonazepam (KlonoPIN) 1 mg HS PO Last administered on 08/16/18 19:26; Start 08/15/18 at 21:00; Stop 08/16/18 at 21:00; Status DC Clonazepam (KlonoPIN) 0.75 mg HS PO Last administered on 09/03/18 21:06; Start 08/17/18 at 21:00 Clozapine (Clozaril) 125 mg QHS PO Last administered on 08/22/18 19:46; Start 08/16/18 at 21:00; Stop 08/23/18 at 16:56; Status DC Iohexol (Omnipaque 300 Mg/ml) 75 ml 1X ONCE IV ; Start 08/16/18 at 18:15; Stop 08/16/18 at 18:16; Status DC Iohexol (Omnipaque 300 Mg/ml) 75 ml 1X ONCE IV Last administered on 08/17/18 09:12; Start 08/17/18 at 08:00; Stop 08/17/18 at 08:01; Status DC Iohexol (Omnipaque 300 Mg/ml) 75 ml 1X ONCE IV ; Start 08/17/18 at 09:00; Stop 08/17/18 at 09:02; Status DC Risperidone (RisperDAL) 1 mg QHS PO Last administered on 08/22/18 19:46; Start 08/17/18 at 21:00; Stop 08/23/18 at 16:56; Status DC Nicotine (Nicoderm Cq 21mg) 1 patch DAILY TD Last administered on 09/03/18at 07: 31; Start 08/21/18 at 10:30 Clozapine (Clozaril) 150 mg QHS PO Last administered on 09/03/18 21:02; Start 08/23/18 at 21:00 Risperidone (RisperDAL) 0.5 mg HS PO Last administered on 09/03/18 21:02; Start 08/23/18 at 21:00 Active Scripts Active Reported Zyprexa (Olanzapine) 5 Mg Tablet 5 Mg PO BID NICODERM CQ 7mg (Nicotine) 1 Each Patch.td24 1 Patch TD PRN DAILY PRN Trazodone Hcl 50 Mg Tablet 50 Mg PO PRN QHS PRN Risperdal (Risperidone) 1 Mg Tablet 1.5 Mg PO HS Analgesic [place] (Methyl Salicylate/Menthol) 28 Gm Oint...g. 1 Gerri TP PRN QID PRN Milk Of Magnesia (Magnesium Hydroxide) 400 Mg/5 Ml Oral.susp 400 Mg PO PRN DAILY PRN Mag-Al Plus Xs Suspension (Mag Hydrox/Al Hydrox/Simeth) 30 Ml Oral.susp 15 Ml PO PRN AFTMEALHC PRN Buspirone Hcl 10 Mg Tablet 10 Mg PO TID Baclofen 10 Mg Tablet 10 Mg PO QID Gabapentin 100 Mg Capsule 100 Mg PO QID Gabapentin 800 Mg Tablet 800 Mg PO QID Levothyroxine Sodium 50 Mcg Tablet 50 Mcg PO DAILYAC Klonopin (Clonazepam) 0.5 Mg Tablet 1 Mg PO BID Norvasc (Amlodipine Besylate) 10 Mg Tablet 10 Mg PO DAILY Oxybutynin Chloride 5 Mg Tablet 2.5 Mg PO BID Depakote Er (Divalproex Sodium) 500 Mg Tab.er.24h 1,500 Mg PO HS Klor-Con M20 (Potassium Chloride) 20 Meq Tab.er.prt 20 Meq PO DAILY Cymbalta (Duloxetine Hcl) 60 Mg Capsule.dr 60 Mg PO DAILY Multivitamin with Iron Tablet (Multivitamin/Iron/Folic Acid) 1 Each Tablet 1 Tab PO DAILY Flomax (Tamsulosin Hcl) 0.4 Mg Cap.er.24h 0.8 Mg PO DAILY Olanzapine 5 Mg Tablet 2.5 Mg PO PRN Q2HR PRN MDD 10mg/ 24 hrs Remeron (Mirtazapine) 15 Mg Tablet 7.5 Mg PO HS Bisacodyl 10 Mg Supp.rect 10 Mg RC PRN DAILY PRN Tylenol (Acetaminophen) 325 Mg Tablet 650 Mg PO PRN Q6HRS PRN I have reviewed the current psychotropics carefully including drug interactions. Risk benefit ratio favors no change other than as noted in my dictated progress note. Diagnosis: Problems: (1) Depression (2) Schizoaffective disorder (3) Anxiety disorder (4) Impulse control disorder (5) Schizophrenia, paranoid, chronic with acute exacerbation CATHY EMERY MD Sep 03, 2018 22:38
[2018-09-04] MEDS: LEVOTHYROXINE 50 MCG TABLET PO SCH (05:48)
[2018-09-04] MEDS: METHYL SALICYLATE/MENTHOL TOPICAL OINTMENT 29GM TUBE. TP PRN (06:17)
[2018-09-04 06:27] VITALS: BP 106/69
[2018-09-04] MEDS: NICOTINE 21MG PATCH. TD SCH (07:48)
[2018-09-04] MEDS: busPIRone 10 MG TABLET. PO SCH ×3 (07:48→19:40)
[2018-09-04] MEDS: POTASSIUM CHLORIDE 20 MEQ TABLET.ER. PO SCH (07:48)
[2018-09-04] MEDS: TAMSULOSIN 0.4 MG CAP.ER.24H. PO SCH (07:48)
[2018-09-04] MEDS: MULTIVITAMIN with MINERAL TABLET. PO SCH (07:48)
[2018-09-04] MEDS: OXYBUTYNIN CHLORIDE 5 MG TABLET PO SCH ×2 (07:49→19:41)
[2018-09-04] MEDS: amLODIPine BESYLATE 10 MG TABLET PO SCH (07:53)
[2018-09-04] MEDS: GABAPENTIN 300 MG CAPSULE. PO SCH ×4 (08:00→19:41)
[2018-09-04] MEDS: clonazePAM 0.5 MG TABLET PO SCH ×2 (08:01→19:43)
[2018-09-04 15:50] VITALS: BP 117/80
[2018-09-04] MEDS: risperiDONE 0.5 MG TABLET. PO SCH (19:40)
[2018-09-04] MEDS: DIVALPROEX ER 500 MG TAB.ER.24H PO SCH (19:41)
[2018-09-04] MEDS: cloZAPine 100 MG TABLET PO SCH (19:41)
--- NOTE | 2018-09-04 22:17 | PDOC ---
Exam Note: Nguyễn Note: Please also refer to the separate dictated note~for this date of service dictated separately.~Patient seen individually. Discussed the patient with Nursing staff reviewed the chart.~Reviewed interim history and current functioning. Reviewed vital signs,~Labs/ Radiology~and current medications noted below. Continue current treatment with the changes noted in the dictated addendum note Assessment: Vital Signs: Vital Signs Date Time Temp Pulse Resp B/P (MAP) Pulse Ox O2 Delivery O2 Flow Rate FiO2 09/04/18 15:50 98.2 98 20 117/80 (92) 98 09/03/18 16:50 Room Air I&O Intake and Output 09/04/18 07:01 Intake Total 960 ml Balance 960 ml Intake Oral 960 ml Current Medications: Meds: Current Medications Acetaminophen (Tylenol) 650 mg PRN Q6HRS PRN PO PAIN / TEMP Last administered on 08/31/18 10:34; Start 06/21/18 at 20:15 Clonazepam (KlonoPIN) 1 mg BID PO Last administered on 08/14/18 19:19; Start 06/21/18 at 21:00; Stop 08/14/18 at 21:25; Status DC Gabapentin (Neurontin) 900 mg QID PO Last administered on 07/08/18at 16:58; Start 06/21/18 at 21:00; Stop 07/08/18 at 17:47; Status DC Al Hydroxide/Mg Hydroxide (Mylanta Plus Xs) 15 ml PRN AFTMEALHC PRN PO GI SYMPTOMS Last administered on 08/22/18 09:18; Start 06/21/18 at 20:15 Magnesium Hydroxide (Milk Of Magnesia) 400 mg PRN DAILY PRN PO CONSTIPATION Last administered on 08/12/18 19:23; Start 06/21/18 at 20:15 Multi-Ingredient Ointment (Analgesic [place]) 1 gerri PRN QID PRN TP MUSCLE PAIN Last administered on 09/04/18 06:17; Start 06/21/18 at 20:15 Oxybutynin Chloride (Ditropan) 2.5 mg BID PO Last administered on 09/04/18 19: 41; Start 06/21/18 at 21:00 Potassium Chloride (Klor-Con) 20 meq DAILY PO Last administered on 1/26/19at 07 :48; Start 06/22/18 at 09:00 Tamsulosin HCl (Flomax) 0.8 mg DAILY PO Last administered on 09/04/18 07:48; Start 06/22/18 at 09:00 Amlodipine Besylate (Norvasc) 10 mg DAILY PO Last administered on 09/04/18 07: 53; Start 06/22/18 at 09:00 Baclofen (Lioresal) 10 mg QID PO Last administered on 07/07/18 19:36; Start 06/21/18 at 21:00; Stop 07/08/18 at 11:48; Status DC Bisacodyl (Dulcolax Supp) 10 mg PRN DAILY PRN [place] CONSTIPATION; Start 06/21/18 at 20:45 Buspirone HCl (Buspar) 10 mg TID PO Last administered on 09/04/18 19:40; Start 06/21/18 at 21:00 Divalproex Sodium (Depakote Er) 1,500 mg HS PO Last administered on 09/04/18 19:41; Start 06/21/18 at 21:00 Non-Formulary Medication (Gabapentin ) 800 mg QID PO ; Start 06/21/18 at 21:00 ; Status UNV Levothyroxine Sodium (Synthroid) 50 mcg DAILY06 PO Last administered on 05:48; Start 06/22/18 at 06:00 Multivitamins/ Calcium (Thera-M Plus) 1 tab DAILY PO Last administered on 07:48; Start 06/22/18 at 09:00 Olanzapine (ZyPREXA ZYDIS) 2.5 mg PRN Q2HR PRN PO PSYCHOSIS Last administered on 08/10/18 20:19; Start 06/21/18 at 20:45 Olanzapine (ZyPREXA) 5 mg BID PO Last administered on 06/23/18 08:47; Start 06/21/18 at 21:00; Stop 06/23/18 at 17:06; Status DC Risperidone (RisperDAL) 1.5 mg HS PO Last administered on 06/23/18 19:45; Start 06/21/18 at 21:00; Stop 06/24/18 at 11:06; Status DC Trazodone HCl (Desyrel) 50 mg PRN QHS PRN PO INSOMNIA Last administered on at 20:19; Start 06/21/18 at 21:00; Stop 08/10/18 at 21:07; Status DC Nicotine (Nicoderm Cq 7mg) 1 patch PRN DAILY PRN TD SMOKING CESSATION; Start 06/21/18 at 23:30; Stop 07/09/18 at 05:39; Status DC Vitamin D (Vitamin D3) 50,000 unit WEEKLY PO Last administered on 09/01/18at 08: 07; Start 06/23/18 at 16:30 Olanzapine (ZyPREXA) 5 mg DAILY PO Last administered on 06/25/18at 08:04; Start 06/24/18 at 09:00; Stop 06/26/18 at 00:00; Status DC Risperidone (RisperDAL) 1.75 mg HS PO Last administered on 07/06/18at 20:08; Start 06/24/18 at 21:00; Stop 07/07/18 at 12:40; Status DC Risperidone (RisperDAL) 2 mg HS PO Last administered on 08/10/18at 20:15; Start 07/07/18 at 21:00; Stop 08/10/18 at 21:07; Status DC Gabapentin (Neurontin) 600 mg QID PO Last administered on 09/04/18at 19:41; Start 07/08/18 at 21:00 Nicotine (Nicoderm Cq 21mg) 1 patch DAILY TD Last administered on 07/30/18at 08 :54; Start 07/09/18 at 09:00; Stop 07/31/18 at 04:33; Status DC Clozapine (Clozaril) 25 mg DAILY PO Last administered on 07/27/18at 09:38; Start 07/13/18 at 09:00; Stop 07/27/18 at 16:52; Status DC Vitamin D (Vitamin D3) 50,000 unit WEEKLY PO ; Start 07/24/18 at 09:00; Status Cancel Clozapine (Clozaril) 50 mg DAILY PO Last administered on 08/03/18at 07:51; Start 07/28/18 at 09:00; Stop 08/03/18 at 21:09; Status DC Nicotine (Nicoderm Cq 21mg) 1 patch PRN DAILY PRN TD SMOKING CESSATION Last administered on 1/11/19at 09:30; Start 07/31/18 at 04:45; Stop 08/21/18 at 10: 24; Status DC Clozapine (Clozaril) 75 mg HS PO Last administered on 08/08/18at 19:36; Start 08/04/18 at 21:00; Stop 08/09/18 at 17:33; Status DC Clozapine (Clozaril) 25 mg 1X ONCE PO Last administered on 08/03/18at 21:25; Start 08/03/18 at 21:30; Stop 08/03/18 at 21:31; Status DC Clozapine (Clozaril) 100 mg QHS PO Last administered on 08/15/18 20:03; Start 08/09/18 at 21:00; Stop 08/16/18 at 16:48; Status DC Risperidone (RisperDAL) 1.5 mg HS PO Last administered on 08/16/18 19:21; Start 08/11/18 at 21:00; Stop 08/17/18 at 16:27; Status DC Trazodone HCl (Desyrel) 50 mg QHS PO ; Start 08/11/18 at 21:00; Stop 08/11/18 at 21:00; Status DC Ondansetron HCl (Zofran Odt) 4 mg PRN Q8HRS PRN PO NAUSEA/VOMITING Last administered on 08/12/18 11:11; Start 08/12/18 at 10:45; Stop 08/12/18 at 16:29; Status DC Ondansetron HCl (Zofran Odt) 4 mg PRN Q4HRS PRN PO NAUSEA/VOMITING Last administered on 08/13/18 08:20; Start 08/12/18 at 16:30 Clonazepam (KlonoPIN) 0.75 mg DAILY PO Last administered on 09/04/18 08:01; Start 08/15/18 at 09:00 Clonazepam (KlonoPIN) 1 mg HS PO Last administered on 08/16/18 19:26; Start 08/15/18 at 21:00; Stop 08/16/18 at 21:00; Status DC Clonazepam (KlonoPIN) 0.75 mg HS PO Last administered on 09/04/18 19:43; Start 08/17/18 at 21:00 Clozapine (Clozaril) 125 mg QHS PO Last administered on 08/22/18at 19:46; Start 08/16/18 at 21:00; Stop 08/23/18 at 16:56; Status DC Iohexol (Omnipaque 300 Mg/ml) 75 ml 1X ONCE IV ; Start 08/16/18 at 18:15; Stop 08/16/18 at 18:16; Status DC Iohexol (Omnipaque 300 Mg/ml) 75 ml 1X ONCE IV Last administered on 08/17/18at 09:12; Start 08/17/18 at 08:00; Stop 08/17/18 at 08:01; Status DC Iohexol (Omnipaque 300 Mg/ml) 75 ml 1X ONCE IV ; Start 08/17/18 at 09:00; Stop 08/17/18 at 09:02; Status DC Risperidone (RisperDAL) 1 mg QHS PO Last administered on 08/22/18at 19:46; Start 08/17/18 at 21:00; Stop 08/23/18 at 16:56; Status DC Nicotine (Nicoderm Cq 21mg) 1 patch DAILY TD Last administered on 09/04/18at 07: 48; Start 08/21/18 at 10:30 Clozapine (Clozaril) 150 mg QHS PO Last administered on 09/04/18at 19:41; Start 08/23/18 at 21:00 Risperidone (RisperDAL) 0.5 mg HS PO Last administered on 09/04/18at 19:40; Start 08/23/18 at 21:00 Active Scripts Active Reported Zyprexa (Olanzapine) 5 Mg Tablet 5 Mg PO BID NICODERM CQ 7mg (Nicotine) 1 Each Patch.td24 1 Patch TD PRN DAILY PRN Trazodone Hcl 50 Mg Tablet 50 Mg PO PRN QHS PRN Risperdal (Risperidone) 1 Mg Tablet 1.5 Mg PO HS Analgesic [place] (Methyl Salicylate/Menthol) 28 Gm Oint...g. 1 Gerri TP PRN QID PRN Milk Of Magnesia (Magnesium Hydroxide) 400 Mg/5 Ml Oral.susp 400 Mg PO PRN DAILY PRN Mag-Al Plus Xs Suspension (Mag Hydrox/Al Hydrox/Simeth) 30 Ml Oral.susp 15 Ml PO PRN AFTMEALHC PRN Buspirone Hcl 10 Mg Tablet 10 Mg PO TID Baclofen 10 Mg Tablet 10 Mg PO QID Gabapentin 100 Mg Capsule 100 Mg PO QID Gabapentin 800 Mg Tablet 800 Mg PO QID Levothyroxine Sodium 50 Mcg Tablet 50 Mcg PO DAILYAC Klonopin (Clonazepam) 0.5 Mg Tablet 1 Mg PO BID Norvasc (Amlodipine Besylate) 10 Mg Tablet 10 Mg PO DAILY Oxybutynin Chloride 5 Mg Tablet 2.5 Mg PO BID Depakote Er (Divalproex Sodium) 500 Mg Tab.er.24h 1,500 Mg PO HS Klor-Con M20 (Potassium Chloride) 20 Meq Tab.er.prt 20 Meq PO DAILY Cymbalta (Duloxetine Hcl) 60 Mg Capsule.dr 60 Mg PO DAILY Multivitamin with Iron Tablet (Multivitamin/Iron/Folic Acid) 1 Each Tablet 1 Tab PO DAILY Flomax (Tamsulosin Hcl) 0.4 Mg Cap.er.24h 0.8 Mg PO DAILY Olanzapine 5 Mg Tablet 2.5 Mg PO PRN Q2HR PRN MDD 10mg/ 24 hrs Remeron (Mirtazapine) 15 Mg Tablet 7.5 Mg PO HS Bisacodyl 10 Mg Supp.rect 10 Mg RC PRN DAILY PRN Tylenol (Acetaminophen) 325 Mg Tablet 650 Mg PO PRN Q6HRS PRN I have reviewed the current psychotropics carefully including drug interactions. Risk benefit ratio favors no change other than as noted in my dictated progress note. Diagnosis: Problems: (1) Depression (2) Schizoaffective disorder (3) Anxiety disorder (4) Impulse control disorder (5) Schizophrenia, paranoid, chronic with acute exacerbation CATHY EMERY MD Sep 04, 2018 22:17
[2018-09-05] MEDS: LEVOTHYROXINE 50 MCG TABLET PO SCH (05:02)
--- NOTE | 2018-09-05 05:06 | PN ---
DATE: 09/03/2018 PSYCHIATRIC PROGRESS NOTE This is a late entry of date of service 09/03/2018, covers elements not covered in my initial note. SUBJECTIVE: I met with the patient in the evening in his room. The patient slept 8-3/4 hours previous night, remains somewhat withdrawn, little suspicious at times, but redirectable. He is fixated that he is going to be discharged on 09/04/2018, till I corrected him. REVIEW OF SYSTEMS: Ambulation impaired with walker. No CV, , pulmonary, eye, ENT system symptoms on review. MENTAL STATUS EXAM: Oriented to himself and situation. Speech has some latency, coherent. Abstraction fair, computation impaired, language function intact, attention span short. Mood and affect remain somewhat withdrawn. LABORATORY DATA: Reviewed. IMPRESSION: Unchanged from initial note. PLAN: No change from initial note. MAN Ty EMERY MD DR: SARINA/nilda JOB#: [id number] / [id number]
[2018-09-05 05:55] VITALS: BP 118/81
[2018-09-05] MEDS: MULTIVITAMIN with MINERAL TABLET. PO SCH (07:51)
[2018-09-05] MEDS: OXYBUTYNIN CHLORIDE 5 MG TABLET PO SCH ×2 (07:51→20:11)
[2018-09-05] MEDS: amLODIPine BESYLATE 10 MG TABLET PO SCH (07:51)
[2018-09-05] MEDS: TAMSULOSIN 0.4 MG CAP.ER.24H. PO SCH (07:52)
[2018-09-05] MEDS: GABAPENTIN 300 MG CAPSULE. PO SCH ×4 (07:52→20:09)
[2018-09-05] MEDS: busPIRone 10 MG TABLET. PO SCH ×3 (07:52→20:10)
[2018-09-05] MEDS: POTASSIUM CHLORIDE 20 MEQ TABLET.ER. PO SCH (07:52)
[2018-09-05] MEDS: clonazePAM 0.5 MG TABLET PO SCH ×2 (08:02→20:13)
[2018-09-05] MEDS: NICOTINE 21MG PATCH. TD SCH (08:03)
[2018-09-05 16:12] VITALS: BP 107/70
[2018-09-05] MEDS: DIVALPROEX ER 500 MG TAB.ER.24H PO SCH (20:10)
[2018-09-05] MEDS: risperiDONE 0.5 MG TABLET. PO SCH (20:10)
[2018-09-05] MEDS: cloZAPine 100 MG TABLET PO SCH (20:11)
--- NOTE | 2018-09-05 22:57 | PDOC ---
Exam Note: Nguyễn Note: Please also refer to the separate dictated note~for this date of service dictated separately.~Patient seen individually. Discussed the patient with Nursing staff reviewed the chart.~Reviewed interim history and current functioning. Reviewed vital signs,~Labs/ Radiology~and current medications noted below. Continue current treatment with the changes noted in the dictated addendum note Assessment: Vital Signs: Vital Signs Date Time Temp Pulse Resp B/P (MAP) Pulse Ox O2 Delivery O2 Flow Rate FiO2 09/05/18 16:12 97.3 76 20 107/70 (82) 93 09/03/18 16:50 Room Air I&O Intake and Output 09/05/18 07:01 Intake Total 1330 ml Balance 1330 ml Intake Oral 1330 ml Current Medications: Meds: Current Medications Acetaminophen (Tylenol) 650 mg PRN Q6HRS PRN PO PAIN / TEMP Last administered on 08/31/18 10:34; Start 06/21/18 at 20:15 Clonazepam (KlonoPIN) 1 mg BID PO Last administered on 08/14/18 19:19; Start 06/21/18 at 21:00; Stop 08/14/18 at 21:25; Status DC Gabapentin (Neurontin) 900 mg QID PO Last administered on 07/08/18 16:58; Start 06/21/18 at 21:00; Stop 07/08/18 at 17:47; Status DC Al Hydroxide/Mg Hydroxide (Mylanta Plus Xs) 15 ml PRN AFTMEALHC PRN PO GI SYMPTOMS Last administered on 08/22/18 09:18; Start 06/21/18 at 20:15 Magnesium Hydroxide (Milk Of Magnesia) 400 mg PRN DAILY PRN PO CONSTIPATION Last administered on 08/12/18 19:23; Start 06/21/18 at 20:15 Multi-Ingredient Ointment (Analgesic [place]) 1 gerri PRN QID PRN TP MUSCLE PAIN Last administered on 09/04/18 06:17; Start 06/21/18 at 20:15 Oxybutynin Chloride (Ditropan) 2.5 mg BID PO Last administered on 09/05/18 20: 11; Start 06/21/18 at 21:00 Potassium Chloride (Klor-Con) 20 meq DAILY PO Last administered on 1/27/19at 07 :52; Start 06/22/18 at 09:00 Tamsulosin HCl (Flomax) 0.8 mg DAILY PO Last administered on 09/05/18 07:52; Start 06/22/18 at 09:00 Amlodipine Besylate (Norvasc) 10 mg DAILY PO Last administered on 09/05/18 07: 51; Start 06/22/18 at 09:00 Baclofen (Lioresal) 10 mg QID PO Last administered on 07/07/18 19:36; Start 06/21/18 at 21:00; Stop 07/08/18 at 11:48; Status DC Bisacodyl (Dulcolax Supp) 10 mg PRN DAILY PRN [place] CONSTIPATION; Start 06/21/18 at 20:45 Buspirone HCl (Buspar) 10 mg TID PO Last administered on 09/05/18 20:10; Start 06/21/18 at 21:00 Divalproex Sodium (Depakote Er) 1,500 mg HS PO Last administered on 09/05/18 20:10; Start 06/21/18 at 21:00 Non-Formulary Medication (Gabapentin ) 800 mg QID PO ; Start 06/21/18 at 21:00 ; Status UNV Levothyroxine Sodium (Synthroid) 50 mcg DAILY06 PO Last administered on 05:02; Start 06/22/18 at 06:00 Multivitamins/ Calcium (Thera-M Plus) 1 tab DAILY PO Last administered on 07:51; Start 06/22/18 at 09:00 Olanzapine (ZyPREXA ZYDIS) 2.5 mg PRN Q2HR PRN PO PSYCHOSIS Last administered on 08/10/18 20:19; Start 06/21/18 at 20:45 Olanzapine (ZyPREXA) 5 mg BID PO Last administered on 06/23/18at 08:47; Start 06/21/18 at 21:00; Stop 06/23/18 at 17:06; Status DC Risperidone (RisperDAL) 1.5 mg HS PO Last administered on 06/23/18 19:45; Start 06/21/18 at 21:00; Stop 06/24/18 at 11:06; Status DC Trazodone HCl (Desyrel) 50 mg PRN QHS PRN PO INSOMNIA Last administered on at 20:19; Start 06/21/18 at 21:00; Stop 08/10/18 at 21:07; Status DC Nicotine (Nicoderm Cq 7mg) 1 patch PRN DAILY PRN TD SMOKING CESSATION; Start 06/21/18 at 23:30; Stop 07/09/18 at 05:39; Status DC Vitamin D (Vitamin D3) 50,000 unit WEEKLY PO Last administered on 09/01/18at 08: 07; Start 06/23/18 at 16:30 Olanzapine (ZyPREXA) 5 mg DAILY PO Last administered on 06/25/18at 08:04; Start 06/24/18 at 09:00; Stop 06/26/18 at 00:00; Status DC Risperidone (RisperDAL) 1.75 mg HS PO Last administered on 07/06/18at 20:08; Start 06/24/18 at 21:00; Stop 07/07/18 at 12:40; Status DC Risperidone (RisperDAL) 2 mg HS PO Last administered on 08/10/18at 20:15; Start 07/07/18 at 21:00; Stop 08/10/18 at 21:07; Status DC Gabapentin (Neurontin) 600 mg QID PO Last administered on 09/05/18at 20:09; Start 07/08/18 at 21:00 Nicotine (Nicoderm Cq 21mg) 1 patch DAILY TD Last administered on 07/30/18at 08 :54; Start 07/09/18 at 09:00; Stop 07/31/18 at 04:33; Status DC Clozapine (Clozaril) 25 mg DAILY PO Last administered on 07/27/18at 09:38; Start 07/13/18 at 09:00; Stop 07/27/18 at 16:52; Status DC Vitamin D (Vitamin D3) 50,000 unit WEEKLY PO ; Start 07/24/18 at 09:00; Status Cancel Clozapine (Clozaril) 50 mg DAILY PO Last administered on 08/03/18at 07:51; Start 07/28/18 at 09:00; Stop 08/03/18 at 21:09; Status DC Nicotine (Nicoderm Cq 21mg) 1 patch PRN DAILY PRN TD SMOKING CESSATION Last administered on 1/11/19at 09:30; Start 07/31/18 at 04:45; Stop 08/21/18 at 10: 24; Status DC Clozapine (Clozaril) 75 mg HS PO Last administered on 08/08/18at 19:36; Start 08/04/18 at 21:00; Stop 08/09/18 at 17:33; Status DC Clozapine (Clozaril) 25 mg 1X ONCE PO Last administered on 08/03/18at 21:25; Start 08/03/18 at 21:30; Stop 08/03/18 at 21:31; Status DC Clozapine (Clozaril) 100 mg QHS PO Last administered on 08/15/18 20:03; Start 08/09/18 at 21:00; Stop 08/16/18 at 16:48; Status DC Risperidone (RisperDAL) 1.5 mg HS PO Last administered on 08/16/18 19:21; Start 08/11/18 at 21:00; Stop 08/17/18 at 16:27; Status DC Trazodone HCl (Desyrel) 50 mg QHS PO ; Start 08/11/18 at 21:00; Stop 08/11/18 at 21:00; Status DC Ondansetron HCl (Zofran Odt) 4 mg PRN Q8HRS PRN PO NAUSEA/VOMITING Last administered on 08/12/18 11:11; Start 08/12/18 at 10:45; Stop 08/12/18 at 16:29; Status DC Ondansetron HCl (Zofran Odt) 4 mg PRN Q4HRS PRN PO NAUSEA/VOMITING Last administered on 08/13/18 08:20; Start 08/12/18 at 16:30 Clonazepam (KlonoPIN) 0.75 mg DAILY PO Last administered on 09/05/18 08:02; Start 08/15/18 at 09:00 Clonazepam (KlonoPIN) 1 mg HS PO Last administered on 08/16/18 19:26; Start 08/15/18 at 21:00; Stop 08/16/18 at 21:00; Status DC Clonazepam (KlonoPIN) 0.75 mg HS PO Last administered on 09/05/18 20:13; Start 08/17/18 at 21:00 Clozapine (Clozaril) 125 mg QHS PO Last administered on 08/22/18at 19:46; Start 08/16/18 at 21:00; Stop 08/23/18 at 16:56; Status DC Iohexol (Omnipaque 300 Mg/ml) 75 ml 1X ONCE IV ; Start 08/16/18 at 18:15; Stop 08/16/18 at 18:16; Status DC Iohexol (Omnipaque 300 Mg/ml) 75 ml 1X ONCE IV Last administered on 08/17/18at 09:12; Start 08/17/18 at 08:00; Stop 08/17/18 at 08:01; Status DC Iohexol (Omnipaque 300 Mg/ml) 75 ml 1X ONCE IV ; Start 08/17/18 at 09:00; Stop 08/17/18 at 09:02; Status DC Risperidone (RisperDAL) 1 mg QHS PO Last administered on 08/22/18at 19:46; Start 08/17/18 at 21:00; Stop 08/23/18 at 16:56; Status DC Nicotine (Nicoderm Cq 21mg) 1 patch DAILY TD Last administered on 09/05/18at 08: 03; Start 08/21/18 at 10:30 Clozapine (Clozaril) 150 mg QHS PO Last administered on 09/05/18at 20:11; Start 08/23/18 at 21:00 Risperidone (RisperDAL) 0.5 mg HS PO Last administered on 09/05/18at 20:10; Start 08/23/18 at 21:00 Active Scripts Active Reported Zyprexa (Olanzapine) 5 Mg Tablet 5 Mg PO BID NICODERM CQ 7mg (Nicotine) 1 Each Patch.td24 1 Patch TD PRN DAILY PRN Trazodone Hcl 50 Mg Tablet 50 Mg PO PRN QHS PRN Risperdal (Risperidone) 1 Mg Tablet 1.5 Mg PO HS Analgesic [place] (Methyl Salicylate/Menthol) 28 Gm Oint...g. 1 Gerri TP PRN QID PRN Milk Of Magnesia (Magnesium Hydroxide) 400 Mg/5 Ml Oral.susp 400 Mg PO PRN DAILY PRN Mag-Al Plus Xs Suspension (Mag Hydrox/Al Hydrox/Simeth) 30 Ml Oral.susp 15 Ml PO PRN AFTMEALHC PRN Buspirone Hcl 10 Mg Tablet 10 Mg PO TID Baclofen 10 Mg Tablet 10 Mg PO QID Gabapentin 100 Mg Capsule 100 Mg PO QID Gabapentin 800 Mg Tablet 800 Mg PO QID Levothyroxine Sodium 50 Mcg Tablet 50 Mcg PO DAILYAC Klonopin (Clonazepam) 0.5 Mg Tablet 1 Mg PO BID Norvasc (Amlodipine Besylate) 10 Mg Tablet 10 Mg PO DAILY Oxybutynin Chloride 5 Mg Tablet 2.5 Mg PO BID Depakote Er (Divalproex Sodium) 500 Mg Tab.er.24h 1,500 Mg PO HS Klor-Con M20 (Potassium Chloride) 20 Meq Tab.er.prt 20 Meq PO DAILY Cymbalta (Duloxetine Hcl) 60 Mg Capsule.dr 60 Mg PO DAILY Multivitamin with Iron Tablet (Multivitamin/Iron/Folic Acid) 1 Each Tablet 1 Tab PO DAILY Flomax (Tamsulosin Hcl) 0.4 Mg Cap.er.24h 0.8 Mg PO DAILY Olanzapine 5 Mg Tablet 2.5 Mg PO PRN Q2HR PRN MDD 10mg/ 24 hrs Remeron (Mirtazapine) 15 Mg Tablet 7.5 Mg PO HS Bisacodyl 10 Mg Supp.rect 10 Mg RC PRN DAILY PRN Tylenol (Acetaminophen) 325 Mg Tablet 650 Mg PO PRN Q6HRS PRN I have reviewed the current psychotropics carefully including drug interactions. Risk benefit ratio favors no change other than as noted in my dictated progress note. Diagnosis: Problems: (1) Depression (2) Schizoaffective disorder (3) Anxiety disorder (4) Impulse control disorder (5) Schizophrenia, paranoid, chronic with acute exacerbation CATHY EMERY MD Sep 05, 2018 22:57
[2018-09-06] MEDS: LEVOTHYROXINE 50 MCG TABLET PO SCH (02:29)
[2018-09-06 05:24] VITALS: BP 109/77
[2018-09-06] MEDS: MULTIVITAMIN with MINERAL TABLET. PO SCH (07:53)
[2018-09-06] MEDS: TAMSULOSIN 0.4 MG CAP.ER.24H. PO SCH (07:53)
[2018-09-06] MEDS: GABAPENTIN 300 MG CAPSULE. PO SCH ×4 (07:53→19:33)
[2018-09-06] MEDS: busPIRone 10 MG TABLET. PO SCH ×3 (07:54→19:30)
[2018-09-06] MEDS: POTASSIUM CHLORIDE 20 MEQ TABLET.ER. PO SCH (07:54)
[2018-09-06] MEDS: OXYBUTYNIN CHLORIDE 5 MG TABLET PO SCH ×2 (07:54→19:30)
[2018-09-06] MEDS: amLODIPine BESYLATE 10 MG TABLET PO SCH (07:55)
[2018-09-06] MEDS: NICOTINE 14MG PATCH. TD SCH (08:03)
[2018-09-06] MEDS: clonazePAM 0.5 MG TABLET PO SCH ×2 (08:04→19:33)
[2018-09-06 15:44] VITALS: BP 105/70
[2018-09-06] MEDS: DIVALPROEX ER 500 MG TAB.ER.24H PO SCH (19:29)
[2018-09-06] MEDS: cloZAPine 100 MG TABLET PO SCH (19:30)
[2018-09-06] MEDS: risperiDONE 0.5 MG TABLET. PO SCH (19:30)
[2018-09-06 19:47] LABS: BASO # 0.1 x10^3/uL (0.0-0.2); BASO % 1 % (0-3); EOS # 0.3 x10^3/uL (0.0-0.7); EOS % 2 % (0-3); HEMATOCRIT 42.8 % (39.0-53.0); HEMOGLOBIN 13.9 g/dL (13.0-17.5); LYMPH # 1.7 x10^3/uL (1.0-4.8); LYMPH % 15 % (24-48); MEAN CORPUSCULAR HEMOGLOBIN 29 pg (25-35); MEAN CORPUSCULAR HGB CONC 33 g/dL (31-37); MEAN CORPUSCULAR VOLUME 89 fL (79-100); MONO # 0.7 x10^3/uL (0.0-1.1); MONO % 6 % (0-9); NEUT # 8.5 x10^3uL (1.8-7.7); NEUT % 76 % (31-73); PLATELET COUNT 367 x10^3/uL (140-400); RED BLOOD COUNT 4.83 x10^6/uL (4.30-5.70); RED CELL DISTRIBUTION WIDTH 14.1 % (11.5-14.5); WHITE BLOOD COUNT 11.2 x10^3/uL (4.0-11.0)
--- NOTE | 2018-09-06 22:43 | PN ---
DATE: 09/05/2018 This late entry for 09/05/2018 covers elements not covered in my initial note. SUBJECTIVE: I met with the patient in the evening. The patient slept 7-3/4 hours previous night. Overall, the patient remains withdrawn, met with him in his room at some length. We are still awaiting placement as we are increasing the Clozaril by following weekly absolute neutrophil counts. REVIEW OF SYSTEMS: Ambulation impaired with walker. No CV, , pulmonary, eye system symptoms on review. MENTAL STATUS EXAM: Oriented to himself and situation. Speech has some latency, coherent. Abstraction fair, computation impaired, language function intact, attention span short. Mood and affect withdrawn, much less psychotic. LABORATORY DATA: Reviewed. IMPRESSION: Schizoaffective disorder, bipolar type, mixed with psychotic features. Rest unchanged. PLAN: Continue psychotropics from initial note. Increase Clozaril gradually after weekly absolute neutrophil count checks. MAN Ty EMERY MD DR: SARINA/nilda JOB#: [id number] / [id number]
--- NOTE | 2018-09-06 22:54 | PDOC ---
Exam Note: Nguyễn Note: Please also refer to the separate dictated note~for this date of service dictated separately.~Patient seen individually. Discussed the patient with Nursing staff reviewed the chart.~Reviewed interim history and current functioning. Reviewed vital signs,~Labs/ Radiology~and current medications noted below. Continue current treatment with the changes noted in the dictated addendum note Assessment: Vital Signs: Vital Signs Date Time Temp Pulse Resp B/P (MAP) Pulse Ox O2 Delivery O2 Flow Rate FiO2 09/06/18 15:44 99.7 104 18 105/70 (82) 95 09/03/18 16:50 Room Air I&O Intake and Output 09/06/18 07:01 Intake Total 1120 ml Balance 1120 ml Intake Oral 1120 ml # Voids 1 Labs: Laboratory Tests Test 09/06/18 19:30 White Blood Count 11.2 x10^3/uL (4.0-11.0) H Red Blood Count 4.83 x10^6/uL (4.30-5.70) Hemoglobin 13.9 g/dL (13.0-17.5) Hematocrit 42.8 % (39.0-53.0) Mean Corpuscular Volume 89 fL (79-100) Mean Corpuscular Hemoglobin 29 pg (25-35) Mean Corpuscular Hemoglobin Concent 33 g/dL (31-37) Red Cell Distribution Width 14.1 % (11.5-14.5) Platelet Count 367 x10^3/uL (140-400) Neutrophils (%) (Auto) 76 % (31-73) H Lymphocytes (%) (Auto) 15 % (24-48) L Monocytes (%) (Auto) 6 % (0-9) Eosinophils (%) (Auto) 2 % (0-3) Basophils (%) (Auto) 1 % (0-3) Neutrophils # (Auto) 8.5 x10^3uL (1.8-7.7) H Lymphocytes # (Auto) 1.7 x10^3/uL (1.0-4.8) Monocytes # (Auto) 0.7 x10^3/uL (0.0-1.1) Eosinophils # (Auto) 0.3 x10^3/uL (0.0-0.7) Basophils # (Auto) 0.1 x10^3/uL (0.0-0.2) Current Medications: Meds: Current Medications Acetaminophen (Tylenol) 650 mg PRN Q6HRS PRN PO PAIN / TEMP Last administered on 08/31/18 10:34; Start 06/21/18 at 20:15 Clonazepam (KlonoPIN) 1 mg BID PO Last administered on 08/14/18 19:19; Start 06/21/18 at 21:00; Stop 08/14/18 at 21:25; Status DC Gabapentin (Neurontin) 900 mg QID PO Last administered on 07/08/18 16:58; Start 06/21/18 at 21:00; Stop 07/08/18 at 17:47; Status DC Al Hydroxide/Mg Hydroxide (Mylanta Plus Xs) 15 ml PRN AFTMEALHC PRN PO GI SYMPTOMS Last administered on 08/22/18 09:18; Start 06/21/18 at 20:15 Magnesium Hydroxide (Milk Of Magnesia) 400 mg PRN DAILY PRN PO CONSTIPATION Last administered on 08/12/18 19:23; Start 06/21/18 at 20:15 Multi-Ingredient Ointment (Analgesic [place]) 1 gerri PRN QID PRN TP MUSCLE PAIN Last administered on 09/04/18 06:17; Start 06/21/18 at 20:15 Oxybutynin Chloride (Ditropan) 2.5 mg BID PO Last administered on 09/06/18 19: 30; Start 06/21/18 at 21:00 Potassium Chloride (Klor-Con) 20 meq DAILY PO Last administered on 09/06/18 07 :54; Start 06/22/18 at 09:00 Tamsulosin HCl (Flomax) 0.8 mg DAILY PO Last administered on 09/06/18 07:53; Start 06/22/18 at 09:00 Amlodipine Besylate (Norvasc) 10 mg DAILY PO Last administered on 09/06/18 07: 55; Start 06/22/18 at 09:00 Baclofen (Lioresal) 10 mg QID PO Last administered on 07/07/18 19:36; Start 06/21/18 at 21:00; Stop 07/08/18 at 11:48; Status DC Bisacodyl (Dulcolax Supp) 10 mg PRN DAILY PRN [place] CONSTIPATION; Start 06/21/18 at 20:45 Buspirone HCl (Buspar) 10 mg TID PO Last administered on 09/06/18 19:30; Start 06/21/18 at 21:00 Divalproex Sodium (Depakote Er) 1,500 mg HS PO Last administered on 09/06/18 19:29; Start 06/21/18 at 21:00 Non-Formulary Medication (Gabapentin ) 800 mg QID PO ; Start 06/21/18 at 21:00 ; Status UNV Levothyroxine Sodium (Synthroid) 50 mcg DAILY06 PO Last administered on 02:29; Start 06/22/18 at 06:00 Multivitamins/ Calcium (Thera-M Plus) 1 tab DAILY PO Last administered on 07:53; Start 06/22/18 at 09:00 Olanzapine (ZyPREXA ZYDIS) 2.5 mg PRN Q2HR PRN PO PSYCHOSIS Last administered on 08/10/18 20:19; Start 06/21/18 at 20:45 Olanzapine (ZyPREXA) 5 mg BID PO Last administered on 06/23/18at 08:47; Start 06/21/18 at 21:00; Stop 06/23/18 at 17:06; Status DC Risperidone (RisperDAL) 1.5 mg HS PO Last administered on 06/23/18at 19:45; Start 06/21/18 at 21:00; Stop 06/24/18 at 11:06; Status DC Trazodone HCl (Desyrel) 50 mg PRN QHS PRN PO INSOMNIA Last administered on 20:19; Start 06/21/18 at 21:00; Stop 08/10/18 at 21:07; Status DC Nicotine (Nicoderm Cq 7mg) 1 patch PRN DAILY PRN TD SMOKING CESSATION; Start 06/21/18 at 23:30; Stop 07/09/18 at 05:39; Status DC Vitamin D (Vitamin D3) 50,000 unit WEEKLY PO Last administered on 09/01/18 08: 07; Start 06/23/18 at 16:30 Olanzapine (ZyPREXA) 5 mg DAILY PO Last administered on 06/25/18at 08:04; Start 06/24/18 at 09:00; Stop 06/26/18 at 00:00; Status DC Risperidone (RisperDAL) 1.75 mg HS PO Last administered on 07/06/18at 20:08; Start 06/24/18 at 21:00; Stop 07/07/18 at 12:40; Status DC Risperidone (RisperDAL) 2 mg HS PO Last administered on 08/10/18at 20:15; Start 07/07/18 at 21:00; Stop 08/10/18 at 21:07; Status DC Gabapentin (Neurontin) 600 mg QID PO Last administered on 09/06/18at 19:33; Start 07/08/18 at 21:00 Nicotine (Nicoderm Cq 21mg) 1 patch DAILY TD Last administered on 07/30/18at 08 :54; Start 07/09/18 at 09:00; Stop 07/31/18 at 04:33; Status DC Clozapine (Clozaril) 25 mg DAILY PO Last administered on 07/27/18at 09:38; Start 07/13/18 at 09:00; Stop 07/27/18 at 16:52; Status DC Vitamin D (Vitamin D3) 50,000 unit WEEKLY PO ; Start 07/24/18 at 09:00; Status Cancel Clozapine (Clozaril) 50 mg DAILY PO Last administered on 08/03/18at 07:51; Start 07/28/18 at 09:00; Stop 08/03/18 at 21:09; Status DC Nicotine (Nicoderm Cq 21mg) 1 patch PRN DAILY PRN TD SMOKING CESSATION Last administered on 08/20/18at 09:30; Start 07/31/18 at 04:45; Stop 08/21/18 at 10: 24; Status DC Clozapine (Clozaril) 75 mg HS PO Last administered on 08/08/18at 19:36; Start 08/04/18 at 21:00; Stop 08/09/18 at 17:33; Status DC Clozapine (Clozaril) 25 mg 1X ONCE PO Last administered on 08/03/18at 21:25; Start 08/03/18 at 21:30; Stop 08/03/18 at 21:31; Status DC Clozapine (Clozaril) 100 mg QHS PO Last administered on 08/15/18at 20:03; Start 08/09/18 at 21:00; Stop 08/16/18 at 16:48; Status DC Risperidone (RisperDAL) 1.5 mg HS PO Last administered on 08/16/18at 19:21; Start 08/11/18 at 21:00; Stop 08/17/18 at 16:27; Status DC Trazodone HCl (Desyrel) 50 mg QHS PO ; Start 08/11/18 at 21:00; Stop 08/11/18 at 21:00; Status DC Ondansetron HCl (Zofran Odt) 4 mg PRN Q8HRS PRN PO NAUSEA/VOMITING Last administered on 08/12/18at 11:11; Start 08/12/18 at 10:45; Stop 08/12/18 at 16:29; Status DC Ondansetron HCl (Zofran Odt) 4 mg PRN Q4HRS PRN PO NAUSEA/VOMITING Last administered on 08/13/18at 08:20; Start 08/12/18 at 16:30 Clonazepam (KlonoPIN) 0.75 mg DAILY PO Last administered on 09/06/18at 08:04; Start 08/15/18 at 09:00 Clonazepam (KlonoPIN) 1 mg HS PO Last administered on 08/16/18 19:26; Start 08/15/18 at 21:00; Stop 08/16/18 at 21:00; Status DC Clonazepam (KlonoPIN) 0.75 mg HS PO Last administered on 09/06/18at 19:33; Start 08/17/18 at 21:00 Clozapine (Clozaril) 125 mg QHS PO Last administered on 08/22/18at 19:46; Start 08/16/18 at 21:00; Stop 08/23/18 at 16:56; Status DC Iohexol (Omnipaque 300 Mg/ml) 75 ml 1X ONCE IV ; Start 08/16/18 at 18:15; Stop 08/16/18 at 18:16; Status DC Iohexol (Omnipaque 300 Mg/ml) 75 ml 1X ONCE IV Last administered on 08/17/18at 09:12; Start 08/17/18 at 08:00; Stop 08/17/18 at 08:01; Status DC Iohexol (Omnipaque 300 Mg/ml) 75 ml 1X ONCE IV ; Start 08/17/18 at 09:00; Stop 08/17/18 at 09:02; Status DC Risperidone (RisperDAL) 1 mg QHS PO Last administered on 08/22/18at 19:46; Start 08/17/18 at 21:00; Stop 08/23/18 at 16:56; Status DC Nicotine (Nicoderm Cq 21mg) 1 patch DAILY TD Last administered on 09/05/18at 08: 03; Start 08/21/18 at 10:30; Stop 09/06/18 at 02:22; Status DC Clozapine (Clozaril) 150 mg QHS PO Last administered on 09/06/18at 19:30; Start 08/23/18 at 21:00 Risperidone (RisperDAL) 0.5 mg HS PO Last administered on 09/06/18at 19:30; Start 08/23/18 at 21:00 Nicotine (Nicoderm Cq 14mg) 1 patch DAILY TD Last administered on 09/06/18at 08: 03; Start 09/06/18 at 09:00 Active Scripts Active Reported Zyprexa (Olanzapine) 5 Mg Tablet 5 Mg PO BID NICODERM CQ 7mg (Nicotine) 1 Each Patch.td24 1 Patch TD PRN DAILY PRN Trazodone Hcl 50 Mg Tablet 50 Mg PO PRN QHS PRN Risperdal (Risperidone) 1 Mg Tablet 1.5 Mg PO HS Analgesic [place] (Methyl Salicylate/Menthol) 28 Gm Oint...g. 1 Gerri TP PRN QID PRN Milk Of Magnesia (Magnesium Hydroxide) 400 Mg/5 Ml Oral.susp 400 Mg PO PRN DAILY PRN Mag-Al Plus Xs Suspension (Mag Hydrox/Al Hydrox/Simeth) 30 Ml Oral.susp 15 Ml PO PRN AFTMEALHC PRN Buspirone Hcl 10 Mg Tablet 10 Mg PO TID Baclofen 10 Mg Tablet 10 Mg PO QID Gabapentin 100 Mg Capsule 100 Mg PO QID Gabapentin 800 Mg Tablet 800 Mg PO QID Levothyroxine Sodium 50 Mcg Tablet 50 Mcg PO DAILYAC Klonopin (Clonazepam) 0.5 Mg Tablet 1 Mg PO BID Norvasc (Amlodipine Besylate) 10 Mg Tablet 10 Mg PO DAILY Oxybutynin Chloride 5 Mg Tablet 2.5 Mg PO BID Depakote Er (Divalproex Sodium) 500 Mg Tab.er.24h 1,500 Mg PO HS Klor-Con M20 (Potassium Chloride) 20 Meq Tab.er.prt 20 Meq PO DAILY Cymbalta (Duloxetine Hcl) 60 Mg Capsule.dr 60 Mg PO DAILY Multivitamin with Iron Tablet (Multivitamin/Iron/Folic Acid) 1 Each Tablet 1 Tab PO DAILY Flomax (Tamsulosin Hcl) 0.4 Mg Cap.er.24h 0.8 Mg PO DAILY Olanzapine 5 Mg Tablet 2.5 Mg PO PRN Q2HR PRN MDD 10mg/ 24 hrs Remeron (Mirtazapine) 15 Mg Tablet 7.5 Mg PO HS Bisacodyl 10 Mg Supp.rect 10 Mg RC PRN DAILY PRN Tylenol (Acetaminophen) 325 Mg Tablet 650 Mg PO PRN Q6HRS PRN I have reviewed the current psychotropics carefully including drug interactions. Risk benefit ratio favors no change other than as noted in my dictated progress note. Diagnosis: Problems: (1) Depression (2) Schizoaffective disorder (3) Anxiety disorder (4) Impulse control disorder (5) Schizophrenia, paranoid, chronic with acute exacerbation CATHY EMERY MD Sep 06, 2018 22:54
--- NOTE | 2018-09-06 23:05 | PN ---
DATE: 09/04/2018 This is a late entry for 09/04/2018 covers elements not covered in my initial note. SUBJECTIVE: I met with the patient in the evening. The patient slept 8-1/2 hours previous night. I met with him in his room. He has been somewhat isolative, but less psychotic. REVIEW OF SYSTEMS: Ambulation impaired with walker. No CV, , pulmonary, eye, ENT system symptoms on review. MENTAL STATUS EXAM: Oriented to himself and situation. Speech moderate latency, coherent. Abstraction fair, computation impaired, language function intact. Mood and affect somewhat withdrawn, less paranoid, less psychotic. LABORATORY DATA: Reviewed. IMPRESSION: Schizoaffective disorder, bipolar type, mixed with psychotic features, in partial remission. Rest unchanged. PLAN: Continue current psychotropics, follow absolute neutrophil count on Thursday09/06/2018 and then consider increasing the Clozaril. MAN Ty EMERY MD DR: SARINA/nilda JOB#: [id number] / [id number]
[2018-09-07] MEDS: LEVOTHYROXINE 50 MCG TABLET PO SCH (05:49)
[2018-09-07 06:31] VITALS: BP 130/88
[2018-09-07] MEDS: MULTIVITAMIN with MINERAL TABLET. PO SCH (07:42)
[2018-09-07] MEDS: NICOTINE 14MG PATCH. TD SCH (07:42)
[2018-09-07] MEDS: amLODIPine BESYLATE 10 MG TABLET PO SCH (07:42)
[2018-09-07] MEDS: OXYBUTYNIN CHLORIDE 5 MG TABLET PO SCH ×2 (07:43→20:54)
[2018-09-07] MEDS: POTASSIUM CHLORIDE 20 MEQ TABLET.ER. PO SCH (07:43)
[2018-09-07] MEDS: busPIRone 10 MG TABLET. PO SCH ×3 (07:43→20:53)
[2018-09-07] MEDS: GABAPENTIN 300 MG CAPSULE. PO SCH ×4 (07:43→20:57)
[2018-09-07] MEDS: TAMSULOSIN 0.4 MG CAP.ER.24H. PO SCH (07:43)
[2018-09-07] MEDS: clonazePAM 0.5 MG TABLET PO SCH ×2 (07:54→20:57)
[2018-09-07 16:13] VITALS: BP 128/87
[2018-09-07] MEDS: DIVALPROEX ER 500 MG TAB.ER.24H PO SCH (20:53)
[2018-09-07] MEDS: cloZAPine 100 MG TABLET PO SCH (20:56)
[2018-09-07] MEDS: cloZAPine 25 MG TABLET PO SCH (20:56)
--- NOTE | 2018-09-07 22:46 | PDOC ---
Exam Note: Nguyễn Note: Please also refer to the separate dictated note~for this date of service dictated separately.~Patient seen individually. Discussed the patient with Nursing staff reviewed the chart.~Reviewed interim history and current functioning. Reviewed vital signs,~Labs/ Radiology~and current medications noted below. Continue current treatment with the changes noted in the dictated addendum note Assessment: Vital Signs: Vital Signs Date Time Temp Pulse Resp B/P (MAP) Pulse Ox O2 Delivery O2 Flow Rate FiO2 09/07/18 16:13 97.4 93 20 128/87 (101) 96 Room Air I&O Intake and Output 09/07/18 07:01 Intake Total 840 ml Balance 840 ml Intake Oral 840 ml Current Medications: Meds: Current Medications Acetaminophen (Tylenol) 650 mg PRN Q6HRS PRN PO PAIN / TEMP Last administered on 08/31/18 10:34; Start 06/21/18 at 20:15 Clonazepam (KlonoPIN) 1 mg BID PO Last administered on 08/14/18 19:19; Start 06/21/18 at 21:00; Stop 08/14/18 at 21:25; Status DC Gabapentin (Neurontin) 900 mg QID PO Last administered on 07/08/18at 16:58; Start 06/21/18 at 21:00; Stop 07/08/18 at 17:47; Status DC Al Hydroxide/Mg Hydroxide (Mylanta Plus Xs) 15 ml PRN AFTMEALHC PRN PO GI SYMPTOMS Last administered on 08/22/18 09:18; Start 06/21/18 at 20:15 Magnesium Hydroxide (Milk Of Magnesia) 400 mg PRN DAILY PRN PO CONSTIPATION Last administered on 08/12/18 19:23; Start 06/21/18 at 20:15 Multi-Ingredient Ointment (Analgesic Cromwell) 1 gerri PRN QID PRN TP MUSCLE PAIN Last administered on 09/04/18 06:17; Start 06/21/18 at 20:15 Oxybutynin Chloride (Ditropan) 2.5 mg BID PO Last administered on 09/07/18 20: 54; Start 06/21/18 at 21:00 Potassium Chloride (Klor-Con) 20 meq DAILY PO Last administered on 09/07/18 07 :43; Start 06/22/18 at 09:00 Tamsulosin HCl (Flomax) 0.8 mg DAILY PO Last administered on 09/07/18 07:43; Start 06/22/18 at 09:00 Amlodipine Besylate (Norvasc) 10 mg DAILY PO Last administered on 09/07/18 07: 42; Start 06/22/18 at 09:00 Baclofen (Lioresal) 10 mg QID PO Last administered on 07/07/18 19:36; Start 06/21/18 at 21:00; Stop 07/08/18 at 11:48; Status DC Bisacodyl (Dulcolax Supp) [address] CONSTIPATION; Start 06/21/18 at 20:45 Buspirone HCl (Buspar) 10 mg TID PO Last administered on 09/07/18 20:53; Start 06/21/18 at 21:00 Divalproex Sodium (Depakote Er) 1,500 mg HS PO Last administered on 09/07/18 20:53; Start 06/21/18 at 21:00 Non-Formulary Medication (Gabapentin ) 800 mg QID PO ; Start 06/21/18 at 21:00 ; Status UNV Levothyroxine Sodium (Synthroid) 50 mcg DAILY06 PO Last administered on 05:49; Start 06/22/18 at 06:00 Multivitamins/ Calcium (Thera-M Plus) 1 tab DAILY PO Last administered on 07:42; Start 06/22/18 at 09:00 Olanzapine (ZyPREXA ZYDIS) 2.5 mg PRN Q2HR PRN PO PSYCHOSIS Last administered on 08/10/18 20:19; Start 06/21/18 at 20:45 Olanzapine (ZyPREXA) 5 mg BID PO Last administered on 06/23/18 08:47; Start 06/21/18 at 21:00; Stop 06/23/18 at 17:06; Status DC Risperidone (RisperDAL) 1.5 mg HS PO Last administered on 06/23/18 19:45; Start 06/21/18 at 21:00; Stop 06/24/18 at 11:06; Status DC Trazodone HCl (Desyrel) 50 mg PRN QHS PRN PO INSOMNIA Last administered on 20:19; Start 06/21/18 at 21:00; Stop 08/10/18 at 21:07; Status DC Nicotine (Nicoderm Cq 7mg) 1 patch PRN DAILY PRN TD SMOKING CESSATION; Start 06/21/18 at 23:30; Stop 07/09/18 at 05:39; Status DC Vitamin D (Vitamin D3) 50,000 unit WEEKLY PO Last administered on 09/01/18at 08: 07; Start 06/23/18 at 16:30 Olanzapine (ZyPREXA) 5 mg DAILY PO Last administered on 06/25/18at 08:04; Start 06/24/18 at 09:00; Stop 06/26/18 at 00:00; Status DC Risperidone (RisperDAL) 1.75 mg HS PO Last administered on 07/06/18at 20:08; Start 06/24/18 at 21:00; Stop 07/07/18 at 12:40; Status DC Risperidone (RisperDAL) 2 mg HS PO Last administered on 08/10/18at 20:15; Start 07/07/18 at 21:00; Stop 08/10/18 at 21:07; Status DC Gabapentin (Neurontin) 600 mg QID PO Last administered on 09/07/18at 20:57; Start 07/08/18 at 21:00 Nicotine (Nicoderm Cq 21mg) 1 patch DAILY TD Last administered on 07/30/18at 08 :54; Start 07/09/18 at 09:00; Stop 07/31/18 at 04:33; Status DC Clozapine (Clozaril) 25 mg DAILY PO Last administered on 07/27/18at 09:38; Start 07/13/18 at 09:00; Stop 07/27/18 at 16:52; Status DC Vitamin D (Vitamin D3) 50,000 unit WEEKLY PO ; Start 07/24/18 at 09:00; Status Cancel Clozapine (Clozaril) 50 mg DAILY PO Last administered on 08/03/18at 07:51; Start 07/28/18 at 09:00; Stop 08/03/18 at 21:09; Status DC Nicotine (Nicoderm Cq 21mg) 1 patch PRN DAILY PRN TD SMOKING CESSATION Last administered on 08/20/18at 09:30; Start 07/31/18 at 04:45; Stop 08/21/18 at 10: 24; Status DC Clozapine (Clozaril) 75 mg HS PO Last administered on 08/08/18at 19:36; Start 08/04/18 at 21:00; Stop 08/09/18 at 17:33; Status DC Clozapine (Clozaril) 25 mg 1X ONCE PO Last administered on 08/03/18at 21:25; Start 08/03/18 at 21:30; Stop 08/03/18 at 21:31; Status DC Clozapine (Clozaril) 100 mg QHS PO Last administered on 08/15/18at 20:03; Start 08/09/18 at 21:00; Stop 08/16/18 at 16:48; Status DC Risperidone (RisperDAL) 1.5 mg HS PO Last administered on 08/16/18at 19:21; Start 08/11/18 at 21:00; Stop 08/17/18 at 16:27; Status DC Trazodone HCl (Desyrel) 50 mg QHS PO ; Start 08/11/18 at 21:00; Stop 08/11/18 at 21:00; Status DC Ondansetron HCl (Zofran Odt) 4 mg PRN Q8HRS PRN PO NAUSEA/VOMITING Last administered on 08/12/18at 11:11; Start 08/12/18 at 10:45; Stop 08/12/18 at 16:29; Status DC Ondansetron HCl (Zofran Odt) 4 mg PRN Q4HRS PRN PO NAUSEA/VOMITING Last administered on 08/13/18at 08:20; Start 08/12/18 at 16:30 Clonazepam (KlonoPIN) 0.75 mg DAILY PO Last administered on 09/07/18at 07:54; Start 08/15/18 at 09:00 Clonazepam (KlonoPIN) 1 mg HS PO Last administered on 08/16/18at 19:26; Start 08/15/18 at 21:00; Stop 08/16/18 at 21:00; Status DC Clonazepam (KlonoPIN) 0.75 mg HS PO Last administered on 09/07/18at 20:57; Start 08/17/18 at 21:00 Clozapine (Clozaril) 125 mg QHS PO Last administered on 08/22/18 19:46; Start 08/16/18 at 21:00; Stop 08/23/18 at 16:56; Status DC Iohexol (Omnipaque 300 Mg/ml) 75 ml 1X ONCE IV ; Start 08/16/18 at 18:15; Stop 08/16/18 at 18:16; Status DC Iohexol (Omnipaque 300 Mg/ml) 75 ml 1X ONCE IV Last administered on 08/17/18at 09:12; Start 08/17/18 at 08:00; Stop 08/17/18 at 08:01; Status DC Iohexol (Omnipaque 300 Mg/ml) 75 ml 1X ONCE IV ; Start 08/17/18 at 09:00; Stop 08/17/18 at 09:02; Status DC Risperidone (RisperDAL) 1 mg QHS PO Last administered on 08/22/18 19:46; Start 08/17/18 at 21:00; Stop 08/23/18 at 16:56; Status DC Nicotine (Nicoderm Cq 21mg) 1 patch DAILY TD Last administered on 09/05/18at 08: 03; Start 08/21/18 at 10:30; Stop 09/06/18 at 02:22; Status DC Clozapine (Clozaril) 150 mg QHS PO Last administered on 09/06/18 19:30; Start 08/23/18 at 21:00; Stop 09/07/18 at 18:46; Status DC Risperidone (RisperDAL) 0.5 mg HS PO Last administered on 09/06/18 19:30; Start 08/23/18 at 21:00; Stop 09/07/18 at 18:46; Status DC Nicotine (Nicoderm Cq 14mg) 1 patch DAILY TD Last administered on 09/07/18at 07: 42; Start 09/06/18 at 09:00 Clozapine (Clozaril) 100 mg QHS PO Last administered on 09/07/18 20:56; Start 09/07/18 at 21:00 Clozapine (Clozaril) 75 mg QHS PO Last administered on 09/07/18at 20:56; Start 09/07/18 at 21:00 Active Scripts Active Reported Zyprexa (Olanzapine) 5 Mg Tablet 5 Mg PO BID NICODERM CQ 7mg (Nicotine) 1 Each Patch.td24 1 Patch TD PRN DAILY PRN Trazodone Hcl 50 Mg Tablet 50 Mg PO PRN QHS PRN Risperdal (Risperidone) 1 Mg Tablet 1.5 Mg PO HS Analgesic [place] (Methyl Salicylate/Menthol) 28 Gm Oint...g. 1 Gerri TP PRN QID PRN Milk Of Magnesia (Magnesium Hydroxide) 400 Mg/5 Ml Oral.susp 400 Mg PO PRN DAILY PRN Mag-Al Plus Xs Suspension (Mag Hydrox/Al Hydrox/Simeth) 30 Ml Oral.susp 15 Ml PO PRN AFTMEALHC PRN Buspirone Hcl 10 Mg Tablet 10 Mg PO TID Baclofen 10 Mg Tablet 10 Mg PO QID Gabapentin 100 Mg Capsule 100 Mg PO QID Gabapentin 800 Mg Tablet 800 Mg PO QID Levothyroxine Sodium 50 Mcg Tablet 50 Mcg PO DAILYAC Klonopin (Clonazepam) 0.5 Mg Tablet 1 Mg PO BID Norvasc (Amlodipine Besylate) 10 Mg Tablet 10 Mg PO DAILY Oxybutynin Chloride 5 Mg Tablet 2.5 Mg PO BID Depakote Er (Divalproex Sodium) 500 Mg Tab.er.24h 1,500 Mg PO HS Klor-Con M20 (Potassium Chloride) 20 Meq Tab.er.prt 20 Meq PO DAILY Cymbalta (Duloxetine Hcl) 60 Mg Capsule.dr 60 Mg PO DAILY Multivitamin with Iron Tablet (Multivitamin/Iron/Folic Acid) 1 Each Tablet 1 Tab PO DAILY Flomax (Tamsulosin Hcl) 0.4 Mg Cap.er.24h 0.8 Mg PO DAILY Olanzapine 5 Mg Tablet 2.5 Mg PO PRN Q2HR PRN MDD 10mg/ 24 hrs Remeron (Mirtazapine) 15 Mg Tablet 7.5 Mg PO HS Bisacodyl 10 Mg Supp.rect 10 Mg RC PRN DAILY PRN Tylenol (Acetaminophen) 325 Mg Tablet 650 Mg PO PRN Q6HRS PRN I have reviewed the current psychotropics carefully including drug interactions. Risk benefit ratio favors no change other than as noted in my dictated progress note. Diagnosis: Problems: (1) Depression (2) Schizoaffective disorder (3) Anxiety disorder (4) Impulse control disorder (5) Schizophrenia, paranoid, chronic with acute exacerbation CATHY EMERY MD Sep 07, 2018 22:45
--- NOTE | 2018-09-08 01:03 | PN ---
DATE: 09/06/2018 PSYCHIATRIC PROGRESS NOTE This late entry of 09/06/2018 covers elements not covered in my initial note. SUBJECTIVE: I met with the patient in the evening. The patient slept 9-1/4 hours previous night. He has been less argumentative. Previous night, he refused BuSpar, then took it later. REVIEW OF SYSTEMS: Ambulation impaired with walker. No CV, , pulmonary, eye, ENT system symptoms on review. I met with him in his room. MENTAL STATUS EXAM: Oriented to himself and situation. Speech is coherent, abstraction fair, computation impaired, language function intact, attention span short. Mood and affect somewhat withdrawn, but much less paranoid. LABORATORY DATA: Reviewed. PLAN: Absolute neutrophil count is awaited and we will increase the Clozaril thereafter and reduce the Risperdal. Rest unchanged. MAN Ty EMERY MD DR: SARINA/nilda JOB#: [id number] / [id number]
[2018-09-08] MEDS: LEVOTHYROXINE 50 MCG TABLET PO SCH (05:49)
[2018-09-08 05:59] VITALS: BP 109/75
[2018-09-08] MEDS: MULTIVITAMIN with MINERAL TABLET. PO SCH (07:39)
[2018-09-08] MEDS: NICOTINE 14MG PATCH. TD SCH (07:39)
[2018-09-08] MEDS: POTASSIUM CHLORIDE 20 MEQ TABLET.ER. PO SCH (07:39)
[2018-09-08] MEDS: busPIRone 10 MG TABLET. PO SCH ×3 (07:39→20:26)
[2018-09-08] MEDS: OXYBUTYNIN CHLORIDE 5 MG TABLET PO SCH ×2 (07:40→20:27)
[2018-09-08] MEDS: TAMSULOSIN 0.4 MG CAP.ER.24H. PO SCH (07:40)
[2018-09-08] MEDS: clonazePAM 0.5 MG TABLET PO SCH ×2 (07:42→20:27)
[2018-09-08] MEDS: GABAPENTIN 300 MG CAPSULE. PO SCH ×4 (07:42→20:27)
[2018-09-08] MEDS: CHOLECALCIFEROL (VITAMIN D3) 50,000 UNIT CAPSULE PO SCH (07:42)
[2018-09-08 07:46] VITALS: BP 146/93
[2018-09-08] MEDS: amLODIPine BESYLATE 10 MG TABLET PO SCH (07:47)
[2018-09-08] MEDS: MAGNESIUM HYDROXIDE 2,400 MG/30 ML ORAL.SUSP. PO PRN (10:51)
[2018-09-08] MEDS ORDERED: SIMETHICONE 80 MG TAB.CHEW PO PRN (16:30)
[2018-09-08 16:33] VITALS: BP 122/87
[2018-09-08] MEDS: cloZAPine 25 MG TABLET PO SCH (20:26)
[2018-09-08] MEDS: DIVALPROEX ER 500 MG TAB.ER.24H PO SCH (20:26)
[2018-09-08] MEDS: cloZAPine 100 MG TABLET PO SCH (20:27)
--- NOTE | 2018-09-08 22:40 | PDOC ---
Exam Note: Nguyễn Note: Please also refer to the separate dictated note~for this date of service dictated separately.~Patient seen individually. Discussed the patient with Nursing staff reviewed the chart.~Reviewed interim history and current functioning. Reviewed vital signs,~Labs/ Radiology~and current medications noted below. Continue current treatment with the changes noted in the dictated addendum note Assessment: Vital Signs: Vital Signs Date Time Temp Pulse Resp B/P (MAP) Pulse Ox O2 Delivery O2 Flow Rate FiO2 09/08/18 16:33 98.2 80 16 122/87 (99) 95 09/07/18 16:13 Room Air I&O Intake and Output 09/08/18 07:01 Intake Total 960 ml Balance 960 ml Intake Oral 960 ml Current Medications: Meds: Current Medications Acetaminophen (Tylenol) 650 mg PRN Q6HRS PRN PO PAIN / TEMP Last administered on 08/31/18 10:34; Start 06/21/18 at 20:15 Clonazepam (KlonoPIN) 1 mg BID PO Last administered on 08/14/18 19:19; Start 06/21/18 at 21:00; Stop 08/14/18 at 21:25; Status DC Gabapentin (Neurontin) 900 mg QID PO Last administered on 07/08/18at 16:58; Start 06/21/18 at 21:00; Stop 07/08/18 at 17:47; Status DC Al Hydroxide/Mg Hydroxide (Mylanta Plus Xs) 15 ml PRN AFTMEALHC PRN PO GI SYMPTOMS Last administered on 08/22/18 09:18; Start 06/21/18 at 20:15 Magnesium Hydroxide (Milk Of Magnesia) 400 mg PRN DAILY PRN PO CONSTIPATION Last administered on 09/08/18 10:51; Start 06/21/18 at 20:15 Multi-Ingredient Ointment (Analgesic Welch) 1 gerri PRN QID PRN TP MUSCLE PAIN Last administered on 09/04/18 06:17; Start 06/21/18 at 20:15 Oxybutynin Chloride (Ditropan) 2.5 mg BID PO Last administered on 09/08/18 20: 27; Start 06/21/18 at 21:00 Potassium Chloride (Klor-Con) 20 meq DAILY PO Last administered on 1/30/19at 07 :39; Start 06/22/18 at 09:00 Tamsulosin HCl (Flomax) 0.8 mg DAILY PO Last administered on 09/08/18 07:40; Start 06/22/18 at 09:00 Amlodipine Besylate (Norvasc) 10 mg DAILY PO Last administered on 09/08/18 07: 47; Start 06/22/18 at 09:00 Baclofen (Lioresal) 10 mg QID PO Last administered on 07/07/18 19:36; Start 06/21/18 at 21:00; Stop 07/08/18 at 11:48; Status DC Bisacodyl (Dulcolax Supp) 10 mg PRN DAILY PRN [place] CONSTIPATION; Start 06/21/18 at 20:45 Buspirone HCl (Buspar) 10 mg TID PO Last administered on 09/08/18 20:26; Start 06/21/18 at 21:00 Divalproex Sodium (Depakote Er) 1,500 mg HS PO Last administered on 09/08/18 20:26; Start 06/21/18 at 21:00 Non-Formulary Medication (Gabapentin ) 800 mg QID PO ; Start 06/21/18 at 21:00 ; Status UNV Levothyroxine Sodium (Synthroid) 50 mcg DAILY06 PO Last administered on 05:49; Start 06/22/18 at 06:00 Multivitamins/ Calcium (Thera-M Plus) 1 tab DAILY PO Last administered on 07:39; Start 06/22/18 at 09:00 Olanzapine (ZyPREXA ZYDIS) 2.5 mg PRN Q2HR PRN PO PSYCHOSIS Last administered on 08/10/18 20:19; Start 06/21/18 at 20:45 Olanzapine (ZyPREXA) 5 mg BID PO Last administered on 06/23/18 08:47; Start 06/21/18 at 21:00; Stop 06/23/18 at 17:06; Status DC Risperidone (RisperDAL) 1.5 mg HS PO Last administered on 06/23/18 19:45; Start 06/21/18 at 21:00; Stop 06/24/18 at 11:06; Status DC Trazodone HCl (Desyrel) 50 mg PRN QHS PRN PO INSOMNIA Last administered on at 20:19; Start 06/21/18 at 21:00; Stop 08/10/18 at 21:07; Status DC Nicotine (Nicoderm Cq 7mg) 1 patch PRN DAILY PRN TD SMOKING CESSATION; Start 06/21/18 at 23:30; Stop 07/09/18 at 05:39; Status DC Vitamin D (Vitamin D3) 50,000 unit WEEKLY PO Last administered on 09/08/18at 07: 42; Start 06/23/18 at 16:30 Olanzapine (ZyPREXA) 5 mg DAILY PO Last administered on 06/25/18at 08:04; Start 06/24/18 at 09:00; Stop 06/26/18 at 00:00; Status DC Risperidone (RisperDAL) 1.75 mg HS PO Last administered on 07/06/18at 20:08; Start 06/24/18 at 21:00; Stop 07/07/18 at 12:40; Status DC Risperidone (RisperDAL) 2 mg HS PO Last administered on 08/10/18at 20:15; Start 07/07/18 at 21:00; Stop 08/10/18 at 21:07; Status DC Gabapentin (Neurontin) 600 mg QID PO Last administered on 09/08/18at 20:27; Start 07/08/18 at 21:00 Nicotine (Nicoderm Cq 21mg) 1 patch DAILY TD Last administered on 07/30/18at 08 :54; Start 07/09/18 at 09:00; Stop 07/31/18 at 04:33; Status DC Clozapine (Clozaril) 25 mg DAILY PO Last administered on 07/27/18at 09:38; Start 07/13/18 at 09:00; Stop 07/27/18 at 16:52; Status DC Vitamin D (Vitamin D3) 50,000 unit WEEKLY PO ; Start 07/24/18 at 09:00; Status Cancel Clozapine (Clozaril) 50 mg DAILY PO Last administered on 08/03/18at 07:51; Start 07/28/18 at 09:00; Stop 08/03/18 at 21:09; Status DC Nicotine (Nicoderm Cq 21mg) 1 patch PRN DAILY PRN TD SMOKING CESSATION Last administered on 1/11/19at 09:30; Start 07/31/18 at 04:45; Stop 08/21/18 at 10: 24; Status DC Clozapine (Clozaril) 75 mg HS PO Last administered on 08/08/18at 19:36; Start 08/04/18 at 21:00; Stop 08/09/18 at 17:33; Status DC Clozapine (Clozaril) 25 mg 1X ONCE PO Last administered on 08/03/18at 21:25; Start 08/03/18 at 21:30; Stop 08/03/18 at 21:31; Status DC Clozapine (Clozaril) 100 mg QHS PO Last administered on 08/15/18 20:03; Start 08/09/18 at 21:00; Stop 08/16/18 at 16:48; Status DC Risperidone (RisperDAL) 1.5 mg HS PO Last administered on 08/16/18 19:21; Start 08/11/18 at 21:00; Stop 08/17/18 at 16:27; Status DC Trazodone HCl (Desyrel) 50 mg QHS PO ; Start 08/11/18 at 21:00; Stop 08/11/18 at 21:00; Status DC Ondansetron HCl (Zofran Odt) 4 mg PRN Q8HRS PRN PO NAUSEA/VOMITING Last administered on 08/12/18 11:11; Start 08/12/18 at 10:45; Stop 08/12/18 at 16:29; Status DC Ondansetron HCl (Zofran Odt) 4 mg PRN Q4HRS PRN PO NAUSEA/VOMITING Last administered on 08/13/18 08:20; Start 08/12/18 at 16:30 Clonazepam (KlonoPIN) 0.75 mg DAILY PO Last administered on 09/08/18 07:42; Start 08/15/18 at 09:00 Clonazepam (KlonoPIN) 1 mg HS PO Last administered on 08/16/18 19:26; Start 08/15/18 at 21:00; Stop 08/16/18 at 21:00; Status DC Clonazepam (KlonoPIN) 0.75 mg HS PO Last administered on 09/08/18 20:27; Start 08/17/18 at 21:00 Clozapine (Clozaril) 125 mg QHS PO Last administered on 08/22/18 19:46; Start 08/16/18 at 21:00; Stop 08/23/18 at 16:56; Status DC Iohexol (Omnipaque 300 Mg/ml) 75 ml 1X ONCE IV ; Start 08/16/18 at 18:15; Stop 08/16/18 at 18:16; Status DC Iohexol (Omnipaque 300 Mg/ml) 75 ml 1X ONCE IV Last administered on 08/17/18at 09:12; Start 08/17/18 at 08:00; Stop 08/17/18 at 08:01; Status DC Iohexol (Omnipaque 300 Mg/ml) 75 ml 1X ONCE IV ; Start 08/17/18 at 09:00; Stop 08/17/18 at 09:02; Status DC Risperidone (RisperDAL) 1 mg QHS PO Last administered on 08/22/18at 19:46; Start 08/17/18 at 21:00; Stop 08/23/18 at 16:56; Status DC Nicotine (Nicoderm Cq 21mg) 1 patch DAILY TD Last administered on 09/05/18 08: 03; Start 08/21/18 at 10:30; Stop 09/06/18 at 02:22; Status DC Clozapine (Clozaril) 150 mg QHS PO Last administered on 09/06/18 19:30; Start 08/23/18 at 21:00; Stop 09/07/18 at 18:46; Status DC Risperidone (RisperDAL) 0.5 mg HS PO Last administered on 09/06/18 19:30; Start 08/23/18 at 21:00; Stop 09/07/18 at 18:46; Status DC Nicotine (Nicoderm Cq 14mg) 1 patch DAILY TD Last administered on 09/08/18 07: 39; Start 09/06/18 at 09:00 Clozapine (Clozaril) 100 mg QHS PO Last administered on 09/08/18 20:27; Start 09/07/18 at 21:00 Clozapine (Clozaril) 75 mg QHS PO Last administered on 09/08/18 20:26; Start 09/07/18 at 21:00 Simethicone (Gas-X) 80 mg PRN AFTMEALHC PRN PO GAS / BLOATING; Start 09/08/18 at 16:30 Active Scripts Active Reported Zyprexa (Olanzapine) 5 Mg Tablet 5 Mg PO BID NICODERM CQ 7mg (Nicotine) 1 Each Patch.td24 1 Patch TD PRN DAILY PRN Trazodone Hcl 50 Mg Tablet 50 Mg PO PRN QHS PRN Risperdal (Risperidone) 1 Mg Tablet 1.5 Mg PO HS Analgesic Welch (Methyl Salicylate/Menthol) 28 Gm Oint...g. 1 Gerri TP PRN QID PRN Milk Of Magnesia (Magnesium Hydroxide) 400 Mg/5 Ml Oral.susp 400 Mg PO PRN DAILY PRN Mag-Al Plus Xs Suspension (Mag Hydrox/Al Hydrox/Simeth) 30 Ml Oral.susp 15 Ml PO PRN AFTMEALHC PRN Buspirone Hcl 10 Mg Tablet 10 Mg PO TID Baclofen 10 Mg Tablet 10 Mg PO QID Gabapentin 100 Mg Capsule 100 Mg PO QID Gabapentin 800 Mg Tablet 800 Mg PO QID Levothyroxine Sodium 50 Mcg Tablet 50 Mcg PO DAILYAC Klonopin (Clonazepam) 0.5 Mg Tablet 1 Mg PO BID Norvasc (Amlodipine Besylate) 10 Mg Tablet 10 Mg PO DAILY Oxybutynin Chloride 5 Mg Tablet 2.5 Mg PO BID Depakote Er (Divalproex Sodium) 500 Mg Tab.er.24h 1,500 Mg PO HS Klor-Con M20 (Potassium Chloride) 20 Meq Tab.er.prt 20 Meq PO DAILY Cymbalta (Duloxetine Hcl) 60 Mg Capsule.dr 60 Mg PO DAILY Multivitamin with Iron Tablet (Multivitamin/Iron/Folic Acid) 1 Each Tablet 1 Tab PO DAILY Flomax (Tamsulosin Hcl) 0.4 Mg Cap.er.24h 0.8 Mg PO DAILY Olanzapine 5 Mg Tablet 2.5 Mg PO PRN Q2HR PRN MDD 10mg/ 24 hrs Remeron (Mirtazapine) 15 Mg Tablet 7.5 Mg PO HS Bisacodyl 10 Mg Supp.rect 10 Mg RC PRN DAILY PRN Tylenol (Acetaminophen) 325 Mg Tablet 650 Mg PO PRN Q6HRS PRN I have reviewed the current psychotropics carefully including drug interactions. Risk benefit ratio favors no change other than as noted in my dictated progress note. Diagnosis: Problems: (1) Depression (2) Schizoaffective disorder (3) Anxiety disorder (4) Impulse control disorder (5) Schizophrenia, paranoid, chronic with acute exacerbation CATHY EMERY MD Sep 08, 2018 22:40
--- NOTE | 2018-09-09 06:15 | PN ---
DATE: 09/07/2018 PSYCHIATRIC PROGRESS NOTE This late entry 09/07/2018 covers elements not covered in my initial note. SUBJECTIVE: I met with the patient in the evening. The patient slept 8-1/2 hours previous night. The patient remains somewhat withdrawn at times, anxious. REVIEW OF SYSTEMS: Ambulation impaired with walker. No CV, , pulmonary, eye, ENT system symptoms on review. Reliability is fair. MENTAL STATUS EXAM: Oriented to himself and situation. Speech has some latency, coherent, often responses monosyllabic. Abstraction fair, computation impaired, language function intact, attention span short. Mood and affect somewhat withdrawn. LABORATORY DATA: Reviewed. IMPRESSION: Schizoaffective disorder, bipolar type, mixed with psychotic features. Rest unchanged. PLAN: The patient's absolute neutrophil count is unremarkable and we will increase the Clozaril from 150 mg at bedtime to 175 mg at bedtime, stopped the Risperdal 0.5 mg at bedtime. Continue BuSpar, Klonopin along with Depakote, Neurontin, and the Zyprexa p.r.n. CATHY EMERY MD DR: SARINA/nilda JOB#: [id number] / [id number]
[2018-09-09] MEDS: LEVOTHYROXINE 50 MCG TABLET PO SCH ×2 (06:27→08:12)
[2018-09-09 06:54] VITALS: BP 126/84
[2018-09-09] MEDS: MULTIVITAMIN with MINERAL TABLET. PO SCH (08:12)
[2018-09-09] MEDS: busPIRone 10 MG TABLET. PO SCH ×3 (08:12→20:44)
[2018-09-09] MEDS: OXYBUTYNIN CHLORIDE 5 MG TABLET PO SCH ×2 (08:12→20:44)
[2018-09-09] MEDS: NICOTINE 14MG PATCH. TD SCH (08:12)
[2018-09-09] MEDS: TAMSULOSIN 0.4 MG CAP.ER.24H. PO SCH (08:12)
[2018-09-09] MEDS: POTASSIUM CHLORIDE 20 MEQ TABLET.ER. PO SCH (08:12)
[2018-09-09] MEDS: amLODIPine BESYLATE 10 MG TABLET PO SCH (08:16)
[2018-09-09] MEDS: GABAPENTIN 300 MG CAPSULE. PO SCH ×4 (08:16→20:46)
[2018-09-09] MEDS: clonazePAM 0.5 MG TABLET PO SCH ×2 (08:17→20:46)
[2018-09-09] MEDS: ACETAMINOPHEN 325 MG TABLET PO PRN (10:13)
[2018-09-09] MEDS: MAGNESIUM HYDROXIDE 2,400 MG/30 ML ORAL.SUSP. PO PRN (14:28)
[2018-09-09 16:16] VITALS: BP 109/71
[2018-09-09] MEDS: DIVALPROEX ER 500 MG TAB.ER.24H PO SCH (20:43)
[2018-09-09] MEDS: cloZAPine 25 MG TABLET PO SCH (20:43)
[2018-09-09] MEDS: cloZAPine 100 MG TABLET PO SCH (20:44)
[2018-09-09] MEDS: DOCUSATE SODIUM 100 MG CAPSULE PO SCH (20:46)
--- NOTE | 2018-09-09 22:34 | PDOC ---
Exam Note: Nguyễn Note: Please also refer to the separate dictated note~for this date of service dictated separately.~Patient seen individually. Discussed the patient with Nursing staff reviewed the chart.~Reviewed interim history and current functioning. Reviewed vital signs,~Labs/ Radiology~and current medications noted below. Continue current treatment with the changes noted in the dictated addendum note Assessment: Vital Signs: Vital Signs Date Time Temp Pulse Resp B/P (MAP) Pulse Ox O2 Delivery O2 Flow Rate FiO2 09/09/18 16:16 98.0 84 16 109/71 (84) 91 09/07/18 16:13 Room Air I&O Intake and Output 09/09/18 07:01 Intake Total 965 ml Balance 965 ml Intake Oral 965 ml # Bowel Movements 1 Current Medications: Meds: Current Medications Acetaminophen (Tylenol) 650 mg PRN Q6HRS PRN PO PAIN / TEMP Last administered on 09/09/18 10:13; Start 06/21/18 at 20:15 Clonazepam (KlonoPIN) 1 mg BID PO Last administered on 08/14/18 19:19; Start 06/21/18 at 21:00; Stop 08/14/18 at 21:25; Status DC Gabapentin (Neurontin) 900 mg QID PO Last administered on 07/08/18at 16:58; Start 06/21/18 at 21:00; Stop 07/08/18 at 17:47; Status DC Al Hydroxide/Mg Hydroxide (Mylanta Plus Xs) 15 ml PRN AFTMEALHC PRN PO GI SYMPTOMS Last administered on 08/22/18 09:18; Start 06/21/18 at 20:15 Magnesium Hydroxide (Milk Of Magnesia) 400 mg PRN DAILY PRN PO CONSTIPATION Last administered on 09/09/18 14:28; Start 06/21/18 at 20:15 Multi-Ingredient Ointment (Analgesic [place]) 1 gerri PRN QID PRN TP MUSCLE PAIN Last administered on 09/04/18 06:17; Start 06/21/18 at 20:15 Oxybutynin Chloride (Ditropan) 2.5 mg BID PO Last administered on 09/09/18 20: 44; Start 06/21/18 at 21:00 Potassium Chloride (Klor-Con) 20 meq DAILY PO Last administered on 09/09/18 08 :12; Start 06/22/18 at 09:00 Tamsulosin HCl (Flomax) 0.8 mg DAILY PO Last administered on 09/09/18 08:12; Start 06/22/18 at 09:00 Amlodipine Besylate (Norvasc) 10 mg DAILY PO Last administered on 09/09/18 08: 16; Start 06/22/18 at 09:00 Baclofen (Lioresal) 10 mg QID PO Last administered on 07/07/18 19:36; Start 06/21/18 at 21:00; Stop 07/08/18 at 11:48; Status DC Bisacodyl (Dulcolax Supp) 10 mg PRN DAILY PRN [place] CONSTIPATION; Start 06/21/18 at 20:45 Buspirone HCl (Buspar) 10 mg TID PO Last administered on 09/09/18 20:44; Start 06/21/18 at 21:00 Divalproex Sodium (Depakote Er) 1,500 mg HS PO Last administered on 09/09/18 20:43; Start 06/21/18 at 21:00 Non-Formulary Medication (Gabapentin ) 800 mg QID PO ; Start 06/21/18 at 21:00 ; Status UNV Levothyroxine Sodium (Synthroid) 50 mcg DAILY06 PO Last administered on 06:27; Start 06/22/18 at 06:00 Multivitamins/ Calcium (Thera-M Plus) 1 tab DAILY PO Last administered on 08:12; Start 06/22/18 at 09:00 Olanzapine (ZyPREXA ZYDIS) 2.5 mg PRN Q2HR PRN PO PSYCHOSIS Last administered on 08/10/18 20:19; Start 06/21/18 at 20:45 Olanzapine (ZyPREXA) 5 mg BID PO Last administered on 06/23/18 08:47; Start 06/21/18 at 21:00; Stop 06/23/18 at 17:06; Status DC Risperidone (RisperDAL) 1.5 mg HS PO Last administered on 06/23/18 19:45; Start 06/21/18 at 21:00; Stop 06/24/18 at 11:06; Status DC Trazodone HCl (Desyrel) 50 mg PRN QHS PRN PO INSOMNIA Last administered on 20:19; Start 06/21/18 at 21:00; Stop 08/10/18 at 21:07; Status DC Nicotine (Nicoderm Cq 7mg) 1 patch PRN DAILY PRN TD SMOKING CESSATION; Start 06/21/18 at 23:30; Stop 07/09/18 at 05:39; Status DC Vitamin D (Vitamin D3) 50,000 unit WEEKLY PO Last administered on 09/08/18at 07: 42; Start 06/23/18 at 16:30 Olanzapine (ZyPREXA) 5 mg DAILY PO Last administered on 06/25/18at 08:04; Start 06/24/18 at 09:00; Stop 06/26/18 at 00:00; Status DC Risperidone (RisperDAL) 1.75 mg HS PO Last administered on 07/06/18at 20:08; Start 06/24/18 at 21:00; Stop 07/07/18 at 12:40; Status DC Risperidone (RisperDAL) 2 mg HS PO Last administered on 08/10/18at 20:15; Start 07/07/18 at 21:00; Stop 08/10/18 at 21:07; Status DC Gabapentin (Neurontin) 600 mg QID PO Last administered on 09/09/18at 20:46; Start 07/08/18 at 21:00 Nicotine (Nicoderm Cq 21mg) 1 patch DAILY TD Last administered on 07/30/18at 08 :54; Start 07/09/18 at 09:00; Stop 07/31/18 at 04:33; Status DC Clozapine (Clozaril) 25 mg DAILY PO Last administered on 07/27/18at 09:38; Start 07/13/18 at 09:00; Stop 07/27/18 at 16:52; Status DC Vitamin D (Vitamin D3) 50,000 unit WEEKLY PO ; Start 07/24/18 at 09:00; Status Cancel Clozapine (Clozaril) 50 mg DAILY PO Last administered on 08/03/18at 07:51; Start 07/28/18 at 09:00; Stop 08/03/18 at 21:09; Status DC Nicotine (Nicoderm Cq 21mg) 1 patch PRN DAILY PRN TD SMOKING CESSATION Last administered on 08/20/18 09:30; Start 07/31/18 at 04:45; Stop 08/21/18 at 10: 24; Status DC Clozapine (Clozaril) 75 mg HS PO Last administered on 08/08/18 19:36; Start 08/04/18 at 21:00; Stop 08/09/18 at 17:33; Status DC Clozapine (Clozaril) 25 mg 1X ONCE PO Last administered on 08/03/18at 21:25; Start 08/03/18 at 21:30; Stop 08/03/18 at 21:31; Status DC Clozapine (Clozaril) 100 mg QHS PO Last administered on 08/15/18 20:03; Start 08/09/18 at 21:00; Stop 08/16/18 at 16:48; Status DC Risperidone (RisperDAL) 1.5 mg HS PO Last administered on 08/16/18 19:21; Start 08/11/18 at 21:00; Stop 08/17/18 at 16:27; Status DC Trazodone HCl (Desyrel) 50 mg QHS PO ; Start 08/11/18 at 21:00; Stop 08/11/18 at 21:00; Status DC Ondansetron HCl (Zofran Odt) 4 mg PRN Q8HRS PRN PO NAUSEA/VOMITING Last administered on 08/12/18 11:11; Start 08/12/18 at 10:45; Stop 08/12/18 at 16:29; Status DC Ondansetron HCl (Zofran Odt) 4 mg PRN Q4HRS PRN PO NAUSEA/VOMITING Last administered on 08/13/18 08:20; Start 08/12/18 at 16:30 Clonazepam (KlonoPIN) 0.75 mg DAILY PO Last administered on 09/09/18 08:17; Start 08/15/18 at 09:00 Clonazepam (KlonoPIN) 1 mg HS PO Last administered on 08/16/18 19:26; Start 08/15/18 at 21:00; Stop 08/16/18 at 21:00; Status DC Clonazepam (KlonoPIN) 0.75 mg HS PO Last administered on 09/09/18 20:46; Start 08/17/18 at 21:00 Clozapine (Clozaril) 125 mg QHS PO Last administered on 08/22/18 19:46; Start 08/16/18 at 21:00; Stop 08/23/18 at 16:56; Status DC Iohexol (Omnipaque 300 Mg/ml) 75 ml 1X ONCE IV ; Start 08/16/18 at 18:15; Stop 08/16/18 at 18:16; Status DC Iohexol (Omnipaque 300 Mg/ml) 75 ml 1X ONCE IV Last administered on 08/17/18at 09:12; Start 08/17/18 at 08:00; Stop 08/17/18 at 08:01; Status DC Iohexol (Omnipaque 300 Mg/ml) 75 ml 1X ONCE IV ; Start 08/17/18 at 09:00; Stop 08/17/18 at 09:02; Status DC Risperidone (RisperDAL) 1 mg QHS PO Last administered on 08/22/18at 19:46; Start 08/17/18 at 21:00; Stop 08/23/18 at 16:56; Status DC Nicotine (Nicoderm Cq 21mg) 1 patch DAILY TD Last administered on 09/05/18 08: 03; Start 08/21/18 at 10:30; Stop 09/06/18 at 02:22; Status DC Clozapine (Clozaril) 150 mg QHS PO Last administered on 09/06/18 19:30; Start 08/23/18 at 21:00; Stop 09/07/18 at 18:46; Status DC Risperidone (RisperDAL) 0.5 mg HS PO Last administered on 09/06/18 19:30; Start 08/23/18 at 21:00; Stop 09/07/18 at 18:46; Status DC Nicotine (Nicoderm Cq 14mg) 1 patch DAILY TD Last administered on 09/09/18 08: 12; Start 09/06/18 at 09:00 Clozapine (Clozaril) 100 mg QHS PO Last administered on 09/09/18at 20:44; Start 09/07/18 at 21:00 Clozapine (Clozaril) 75 mg QHS PO Last administered on 09/09/18 20:43; Start 09/07/18 at 21:00 Simethicone (Gas-X) 80 mg PRN AFTMEALHC PRN PO GAS / BLOATING; Start 09/08/18 at 16:30 Docusate Sodium (Colace) 100 mg BID PO Last administered on 09/09/18at 20:46; Start 09/09/18 at 21:00 Polyethylene Glycol (miraLAX) 17 gm DAILY PO ; Start 09/10/18 at 09:00 Active Scripts Active Reported Zyprexa (Olanzapine) 5 Mg Tablet 5 Mg PO BID NICODERM CQ 7mg (Nicotine) 1 Each Patch.td24 1 Patch TD PRN DAILY PRN Trazodone Hcl 50 Mg Tablet 50 Mg PO PRN QHS PRN Risperdal (Risperidone) 1 Mg Tablet 1.5 Mg PO HS Analgesic [place] (Methyl Salicylate/Menthol) 28 Gm Oint...g. 1 Gerri TP PRN QID PRN Milk Of Magnesia (Magnesium Hydroxide) 400 Mg/5 Ml Oral.susp 400 Mg PO PRN DAILY PRN Mag-Al Plus Xs Suspension (Mag Hydrox/Al Hydrox/Simeth) 30 Ml Oral.susp 15 Ml PO PRN AFTMEALHC PRN Buspirone Hcl 10 Mg Tablet 10 Mg PO TID Baclofen 10 Mg Tablet 10 Mg PO QID Gabapentin 100 Mg Capsule 100 Mg PO QID Gabapentin 800 Mg Tablet 800 Mg PO QID Levothyroxine Sodium 50 Mcg Tablet 50 Mcg PO DAILYAC Klonopin (Clonazepam) 0.5 Mg Tablet 1 Mg PO BID Norvasc (Amlodipine Besylate) 10 Mg Tablet 10 Mg PO DAILY Oxybutynin Chloride 5 Mg Tablet 2.5 Mg PO BID Depakote Er (Divalproex Sodium) 500 Mg Tab.er.24h 1,500 Mg PO HS Klor-Con M20 (Potassium Chloride) 20 Meq Tab.er.prt 20 Meq PO DAILY Cymbalta (Duloxetine Hcl) 60 Mg Capsule.dr 60 Mg PO DAILY Multivitamin with Iron Tablet (Multivitamin/Iron/Folic Acid) 1 Each Tablet 1 Tab PO DAILY Flomax (Tamsulosin Hcl) 0.4 Mg Cap.er.24h 0.8 Mg PO DAILY Olanzapine 5 Mg Tablet 2.5 Mg PO PRN Q2HR PRN MDD 10mg/ 24 hrs Remeron (Mirtazapine) 15 Mg Tablet 7.5 Mg PO HS Bisacodyl 10 Mg Supp.rect 10 Mg RC PRN DAILY PRN Tylenol (Acetaminophen) 325 Mg Tablet 650 Mg PO PRN Q6HRS PRN I have reviewed the current psychotropics carefully including drug interactions. Risk benefit ratio favors no change other than as noted in my dictated progress note. Diagnosis: Problems: (1) Depression (2) Schizoaffective disorder (3) Anxiety disorder (4) Impulse control disorder (5) Schizophrenia, paranoid, chronic with acute exacerbation CATHY EMERY MD Sep 09, 2018 22:34
[2018-09-10] MEDS: LEVOTHYROXINE 50 MCG TABLET PO SCH (06:04)
[2018-09-10 06:27] VITALS: BP 129/85
[2018-09-10] MEDS: NICOTINE 14MG PATCH. TD SCH (07:50)
[2018-09-10] MEDS: OXYBUTYNIN CHLORIDE 5 MG TABLET PO SCH ×2 (07:51→19:49)
[2018-09-10] MEDS: DOCUSATE SODIUM 100 MG CAPSULE PO SCH ×2 (07:51→19:50)
[2018-09-10] MEDS: MULTIVITAMIN with MINERAL TABLET. PO SCH (07:51)
[2018-09-10] MEDS: busPIRone 10 MG TABLET. PO SCH ×3 (07:51→19:49)
[2018-09-10] MEDS: POTASSIUM CHLORIDE 20 MEQ TABLET.ER. PO SCH (07:51)
[2018-09-10] MEDS: TAMSULOSIN 0.4 MG CAP.ER.24H. PO SCH (07:52)
[2018-09-10] MEDS: amLODIPine BESYLATE 10 MG TABLET PO SCH (07:52)
[2018-09-10] MEDS: POLYETHYLENE GLYCOL 3350 17 GM PACKET. PO SCH (07:55)
[2018-09-10] MEDS: clonazePAM 0.5 MG TABLET PO SCH ×2 (07:55→19:52)
[2018-09-10] MEDS: GABAPENTIN 300 MG CAPSULE. PO SCH ×4 (07:55→19:49)
[2018-09-10 16:08] VITALS: BP 112/78
[2018-09-10] MEDS: cloZAPine 25 MG TABLET PO SCH (19:49)
[2018-09-10] MEDS: DIVALPROEX ER 500 MG TAB.ER.24H PO SCH (19:50)
[2018-09-10] MEDS: cloZAPine 100 MG TABLET PO SCH (19:50)
--- NOTE | 2018-09-10 21:35 | PN ---
DATE: 09/08/2018 PSYCHIATRIC PROGRESS NOTE This late entry 09/08/2018 covers elements not covered in my initial note. SUBJECTIVE: I met with the patient in the evening at length in his room. The patient slept 9-1/2 hours previous night. He remains somewhat withdrawn, isolative, wanting to be discharged and I addressed this at length. Social service staff is working diligently to make this happen, but there are multiple problems with social security and payment sources that they are trying to overcome. REVIEW OF SYSTEMS: Ambulation impaired with walker. No CV, , pulmonary, eye system symptoms on review. MENTAL STATUS EXAMINATION: Oriented to himself and situation. Speech has some latency, coherent. Abstraction fair, computation impaired, language function intact. Attention span short. He is less paranoid. LABORATORY DATA: Reviewed. IMPRESSION: Unchanged from initial note. PLAN: No change from initial note. MAN Ty EMERY MD DR: SARINA/nilda JOB#: [id number] / [id number]
--- NOTE | 2018-09-10 22:59 | PDOC ---
Exam Note: Nguyễn Note: Please also refer to the separate dictated note~for this date of service dictated separately.~Patient seen individually. Discussed the patient with Nursing staff reviewed the chart.~Reviewed interim history and current functioning. Reviewed vital signs,~Labs/ Radiology~and current medications noted below. Continue current treatment with the changes noted in the dictated addendum note Assessment: Vital Signs: Vital Signs Date Time Temp Pulse Resp B/P (MAP) Pulse Ox O2 Delivery O2 Flow Rate FiO2 09/10/18 16:08 97.6 91 20 112/78 (89) 100 Room Air I&O Intake and Output 09/10/18 07:01 Intake Total 1440 ml Balance 1440 ml Intake Oral 1440 ml Current Medications: Meds: Current Medications Acetaminophen (Tylenol) 650 mg PRN Q6HRS PRN PO PAIN / TEMP Last administered on 09/09/18 10:13; Start 06/21/18 at 20:15 Clonazepam (KlonoPIN) 1 mg BID PO Last administered on 08/14/18 19:19; Start 06/21/18 at 21:00; Stop 08/14/18 at 21:25; Status DC Gabapentin (Neurontin) 900 mg QID PO Last administered on 07/08/18at 16:58; Start 06/21/18 at 21:00; Stop 07/08/18 at 17:47; Status DC Al Hydroxide/Mg Hydroxide (Mylanta Plus Xs) 15 ml PRN AFTMEALHC PRN PO GI SYMPTOMS Last administered on 08/22/18 09:18; Start 06/21/18 at 20:15 Magnesium Hydroxide (Milk Of Magnesia) 400 mg PRN DAILY PRN PO CONSTIPATION Last administered on 09/09/18 14:28; Start 06/21/18 at 20:15 Multi-Ingredient Ointment (Analgesic [place]) 1 gerri PRN QID PRN TP MUSCLE PAIN Last administered on 09/04/18 06:17; Start 06/21/18 at 20:15 Oxybutynin Chloride (Ditropan) 2.5 mg BID PO Last administered on 09/10/18 19: 49; Start 06/21/18 at 21:00 Potassium Chloride (Klor-Con) 20 meq DAILY PO Last administered on 09/10/18 07: 51; Start 06/22/18 at 09:00 Tamsulosin HCl (Flomax) 0.8 mg DAILY PO Last administered on 09/10/18 07:52; Start 06/22/18 at 09:00 Amlodipine Besylate (Norvasc) 10 mg DAILY PO Last administered on 09/10/18 07: 52; Start 06/22/18 at 09:00 Baclofen (Lioresal) 10 mg QID PO Last administered on 07/07/18 19:36; Start 06/21/18 at 21:00; Stop 07/08/18 at 11:48; Status DC Bisacodyl (Dulcolax Supp) 10 mg PRN DAILY PRN [place] CONSTIPATION; Start 06/21/18 at 20:45 Buspirone HCl (Buspar) 10 mg TID PO Last administered on 09/10/18 19:49; Start 06/21/18 at 21:00 Divalproex Sodium (Depakote Er) 1,500 mg HS PO Last administered on 09/10/18 19 :50; Start 06/21/18 at 21:00 Non-Formulary Medication (Gabapentin ) 800 mg QID PO ; Start 06/21/18 at 21:00 ; Status UNV Levothyroxine Sodium (Synthroid) 50 mcg DAILY06 PO Last administered on 06:04; Start 06/22/18 at 06:00 Multivitamins/ Calcium (Thera-M Plus) 1 tab DAILY PO Last administered on 07:51; Start 06/22/18 at 09:00 Olanzapine (ZyPREXA ZYDIS) 2.5 mg PRN Q2HR PRN PO PSYCHOSIS Last administered on 08/10/18 20:19; Start 06/21/18 at 20:45 Olanzapine (ZyPREXA) 5 mg BID PO Last administered on 06/23/18 08:47; Start 06/21/18 at 21:00; Stop 06/23/18 at 17:06; Status DC Risperidone (RisperDAL) 1.5 mg HS PO Last administered on 06/23/18 19:45; Start 06/21/18 at 21:00; Stop 06/24/18 at 11:06; Status DC Trazodone HCl (Desyrel) 50 mg PRN QHS PRN PO INSOMNIA Last administered on 20:19; Start 06/21/18 at 21:00; Stop 08/10/18 at 21:07; Status DC Nicotine (Nicoderm Cq 7mg) 1 patch PRN DAILY PRN TD SMOKING CESSATION; Start 06/21/18 at 23:30; Stop 07/09/18 at 05:39; Status DC Vitamin D (Vitamin D3) 50,000 unit WEEKLY PO Last administered on 09/08/18at 07: 42; Start 06/23/18 at 16:30 Olanzapine (ZyPREXA) 5 mg DAILY PO Last administered on 06/25/18at 08:04; Start 06/24/18 at 09:00; Stop 06/26/18 at 00:00; Status DC Risperidone (RisperDAL) 1.75 mg HS PO Last administered on 07/06/18at 20:08; Start 06/24/18 at 21:00; Stop 07/07/18 at 12:40; Status DC Risperidone (RisperDAL) 2 mg HS PO Last administered on 08/10/18at 20:15; Start 07/07/18 at 21:00; Stop 08/10/18 at 21:07; Status DC Gabapentin (Neurontin) 600 mg QID PO Last administered on 09/10/18 19:49; Start 07/08/18 at 21:00 Nicotine (Nicoderm Cq 21mg) 1 patch DAILY TD Last administered on 07/30/18at 08 :54; Start 07/09/18 at 09:00; Stop 07/31/18 at 04:33; Status DC Clozapine (Clozaril) 25 mg DAILY PO Last administered on 07/27/18at 09:38; Start 07/13/18 at 09:00; Stop 07/27/18 at 16:52; Status DC Vitamin D (Vitamin D3) 50,000 unit WEEKLY PO ; Start 07/24/18 at 09:00; Status Cancel Clozapine (Clozaril) 50 mg DAILY PO Last administered on 08/03/18at 07:51; Start 07/28/18 at 09:00; Stop 08/03/18 at 21:09; Status DC Nicotine (Nicoderm Cq 21mg) 1 patch PRN DAILY PRN TD SMOKING CESSATION Last administered on 08/20/18at 09:30; Start 07/31/18 at 04:45; Stop 08/21/18 at 10: 24; Status DC Clozapine (Clozaril) 75 mg HS PO Last administered on 08/08/18at 19:36; Start 08/04/18 at 21:00; Stop 08/09/18 at 17:33; Status DC Clozapine (Clozaril) 25 mg 1X ONCE PO Last administered on 08/03/18at 21:25; Start 08/03/18 at 21:30; Stop 08/03/18 at 21:31; Status DC Clozapine (Clozaril) 100 mg QHS PO Last administered on 08/15/18at 20:03; Start 08/09/18 at 21:00; Stop 08/16/18 at 16:48; Status DC Risperidone (RisperDAL) 1.5 mg HS PO Last administered on 08/16/18at 19:21; Start 08/11/18 at 21:00; Stop 08/17/18 at 16:27; Status DC Trazodone HCl (Desyrel) 50 mg QHS PO ; Start 08/11/18 at 21:00; Stop 08/11/18 at 21:00; Status DC Ondansetron HCl (Zofran Odt) 4 mg PRN Q8HRS PRN PO NAUSEA/VOMITING Last administered on 08/12/18at 11:11; Start 08/12/18 at 10:45; Stop 08/12/18 at 16:29; Status DC Ondansetron HCl (Zofran Odt) 4 mg PRN Q4HRS PRN PO NAUSEA/VOMITING Last administered on 08/13/18at 08:20; Start 08/12/18 at 16:30 Clonazepam (KlonoPIN) 0.75 mg DAILY PO Last administered on 09/10/18at 07:55; Start 08/15/18 at 09:00 Clonazepam (KlonoPIN) 1 mg HS PO Last administered on 08/16/18at 19:26; Start 08/15/18 at 21:00; Stop 08/16/18 at 21:00; Status DC Clonazepam (KlonoPIN) 0.75 mg HS PO Last administered on 09/10/18at 19:52; Start 08/17/18 at 21:00 Clozapine (Clozaril) 125 mg QHS PO Last administered on 08/22/18 19:46; Start 08/16/18 at 21:00; Stop 08/23/18 at 16:56; Status DC Iohexol (Omnipaque 300 Mg/ml) 75 ml 1X ONCE IV ; Start 08/16/18 at 18:15; Stop 08/16/18 at 18:16; Status DC Iohexol (Omnipaque 300 Mg/ml) 75 ml 1X ONCE IV Last administered on 08/17/18at 09:12; Start 08/17/18 at 08:00; Stop 08/17/18 at 08:01; Status DC Iohexol (Omnipaque 300 Mg/ml) 75 ml 1X ONCE IV ; Start 08/17/18 at 09:00; Stop 08/17/18 at 09:02; Status DC Risperidone (RisperDAL) 1 mg QHS PO Last administered on 08/22/18 19:46; Start 08/17/18 at 21:00; Stop 08/23/18 at 16:56; Status DC Nicotine (Nicoderm Cq 21mg) 1 patch DAILY TD Last administered on 09/05/18at 08: 03; Start 08/21/18 at 10:30; Stop 09/06/18 at 02:22; Status DC Clozapine (Clozaril) 150 mg QHS PO Last administered on 09/06/18 19:30; Start 08/23/18 at 21:00; Stop 09/07/18 at 18:46; Status DC Risperidone (RisperDAL) 0.5 mg HS PO Last administered on 09/06/18 19:30; Start 08/23/18 at 21:00; Stop 09/07/18 at 18:46; Status DC Nicotine (Nicoderm Cq 14mg) 1 patch DAILY TD Last administered on 09/10/18 07: 50; Start 09/06/18 at 09:00 Clozapine (Clozaril) 100 mg QHS PO Last administered on 09/10/18 19:50; Start 09/07/18 at 21:00 Clozapine (Clozaril) 75 mg QHS PO Last administered on 09/10/18 19:49; Start at 21:00 Simethicone (Gas-X) 80 mg PRN AFTMEALHC PRN PO GAS / BLOATING; Start 09/08/18 at 16:30 Docusate Sodium (Colace) 100 mg BID PO Last administered on 09/10/18at 19:50; Start 09/09/18 at 21:00 Polyethylene Glycol (miraLAX) 17 gm DAILY PO Last administered on 09/10/18at 07: 55; Start 09/10/18 at 09:00 Active Scripts Active Reported Zyprexa (Olanzapine) 5 Mg Tablet 5 Mg PO BID NICODERM CQ 7mg (Nicotine) 1 Each Patch.td24 1 Patch TD PRN DAILY PRN Trazodone Hcl 50 Mg Tablet 50 Mg PO PRN QHS PRN Risperdal (Risperidone) 1 Mg Tablet 1.5 Mg PO HS Analgesic [place] (Methyl Salicylate/Menthol) 28 Gm Oint...g. 1 Gerri TP PRN QID PRN Milk Of Magnesia (Magnesium Hydroxide) 400 Mg/5 Ml Oral.susp 400 Mg PO PRN DAILY PRN Mag-Al Plus Xs Suspension (Mag Hydrox/Al Hydrox/Simeth) 30 Ml Oral.susp 15 Ml PO PRN AFTMEALHC PRN Buspirone Hcl 10 Mg Tablet 10 Mg PO TID Baclofen 10 Mg Tablet 10 Mg PO QID Gabapentin 100 Mg Capsule 100 Mg PO QID Gabapentin 800 Mg Tablet 800 Mg PO QID Levothyroxine Sodium 50 Mcg Tablet 50 Mcg PO DAILYAC Klonopin (Clonazepam) 0.5 Mg Tablet 1 Mg PO BID Norvasc (Amlodipine Besylate) 10 Mg Tablet 10 Mg PO DAILY Oxybutynin Chloride 5 Mg Tablet 2.5 Mg PO BID Depakote Er (Divalproex Sodium) 500 Mg Tab.er.24h 1,500 Mg PO HS Klor-Con M20 (Potassium Chloride) 20 Meq Tab.er.prt 20 Meq PO DAILY Cymbalta (Duloxetine Hcl) 60 Mg Capsule.dr 60 Mg PO DAILY Multivitamin with Iron Tablet (Multivitamin/Iron/Folic Acid) 1 Each Tablet 1 Tab PO DAILY Flomax (Tamsulosin Hcl) 0.4 Mg Cap.er.24h 0.8 Mg PO DAILY Olanzapine 5 Mg Tablet 2.5 Mg PO PRN Q2HR PRN MDD 10mg/ 24 hrs Remeron (Mirtazapine) 15 Mg Tablet 7.5 Mg PO HS Bisacodyl 10 Mg Supp.rect 10 Mg RC PRN DAILY PRN Tylenol (Acetaminophen) 325 Mg Tablet 650 Mg PO PRN Q6HRS PRN I have reviewed the current psychotropics carefully including drug interactions. Risk benefit ratio favors no change other than as noted in my dictated progress note. Diagnosis: Problems: (1) Depression (2) Schizoaffective disorder (3) Anxiety disorder (4) Impulse control disorder (5) Schizophrenia, paranoid, chronic with acute exacerbation CATHY EMERY MD Sep 10, 2018 22:59
--- NOTE | 2018-09-11 04:48 | PN ---
DATE: 09/09/2018 This is a late entry for 09/09/2018 covers elements not covered in my initial note. SUBJECTIVE: I met with the patient in the evening, staffed at a treatment team meeting with the entire team. Social service staff is diligently working at placement options. I met with him in his room. REVIEW OF SYSTEMS: Ambulation impaired with walker. No CV, , pulmonary, eye, ENT system symptoms on review. MENTAL STATUS EXAM: Oriented to himself and situation. Speech is coherent, has some latency. Abstraction fair, computation impaired, language function intact. Mood and affect withdrawn. LABORATORY DATA: Reviewed. IMPRESSION: Unchanged from initial note. PLAN: No change from initial note. MAN Ty EMERY MD DR: SARINA/nilda JOB#: [id number] / [id number]
[2018-09-11 06:15] VITALS: BP 119/77
[2018-09-11] MEDS: LEVOTHYROXINE 50 MCG TABLET PO SCH (06:24)
[2018-09-11] MEDS: NICOTINE 14MG PATCH. TD SCH (07:34)
[2018-09-11] MEDS: OXYBUTYNIN CHLORIDE 5 MG TABLET PO SCH ×2 (07:34→20:05)
[2018-09-11] MEDS: DOCUSATE SODIUM 100 MG CAPSULE PO SCH ×2 (07:34→20:07)
[2018-09-11] MEDS: MULTIVITAMIN with MINERAL TABLET. PO SCH (07:35)
[2018-09-11] MEDS: TAMSULOSIN 0.4 MG CAP.ER.24H. PO SCH (07:35)
[2018-09-11] MEDS: POLYETHYLENE GLYCOL 3350 17 GM PACKET. PO SCH (07:35)
[2018-09-11] MEDS: POTASSIUM CHLORIDE 20 MEQ TABLET.ER. PO SCH (07:35)
[2018-09-11] MEDS: busPIRone 10 MG TABLET. PO SCH ×3 (07:35→20:05)
[2018-09-11] MEDS: GABAPENTIN 300 MG CAPSULE. PO SCH ×4 (07:35→20:06)
[2018-09-11] MEDS: amLODIPine BESYLATE 10 MG TABLET PO SCH (07:36)
[2018-09-11] MEDS: clonazePAM 0.5 MG TABLET PO SCH ×2 (07:38→20:07)
[2018-09-11 16:02] VITALS: BP 122/87
[2018-09-11] MEDS: cloZAPine 25 MG TABLET PO SCH (20:05)
[2018-09-11] MEDS: DIVALPROEX ER 500 MG TAB.ER.24H PO SCH (20:05)
[2018-09-11] MEDS: cloZAPine 100 MG TABLET PO SCH (20:06)
--- NOTE | 2018-09-11 22:26 | PDOC ---
Exam Note: Nguyễn Note: Please also refer to the separate dictated note~for this date of service dictated separately.~Patient seen individually. Discussed the patient with Nursing staff reviewed the chart.~Reviewed interim history and current functioning. Reviewed vital signs,~Labs/ Radiology~and current medications noted below. Continue current treatment with the changes noted in the dictated addendum note Assessment: Vital Signs: Vital Signs Date Time Temp Pulse Resp B/P (MAP) Pulse Ox O2 Delivery O2 Flow Rate FiO2 09/11/18 16:02 97.6 84 18 122/87 (99) 98 Room Air I&O Intake and Output 09/11/18 07:01 Intake Total 960 ml Balance 960 ml Intake Oral 960 ml Current Medications: Meds: Current Medications Acetaminophen (Tylenol) 650 mg PRN Q6HRS PRN PO PAIN / TEMP Last administered on 09/09/18 10:13; Start 06/21/18 at 20:15 Clonazepam (KlonoPIN) 1 mg BID PO Last administered on 08/14/18 19:19; Start 06/21/18 at 21:00; Stop 08/14/18 at 21:25; Status DC Gabapentin (Neurontin) 900 mg QID PO Last administered on 07/08/18at 16:58; Start 06/21/18 at 21:00; Stop 07/08/18 at 17:47; Status DC Al Hydroxide/Mg Hydroxide (Mylanta Plus Xs) 15 ml PRN AFTMEALHC PRN PO GI SYMPTOMS Last administered on 08/22/18 09:18; Start 06/21/18 at 20:15 Magnesium Hydroxide (Milk Of Magnesia) 400 mg PRN DAILY PRN PO CONSTIPATION Last administered on 09/09/18 14:28; Start 06/21/18 at 20:15 Multi-Ingredient Ointment (Analgesic [place]) 1 gerri PRN QID PRN TP MUSCLE PAIN Last administered on 09/04/18 06:17; Start 06/21/18 at 20:15 Oxybutynin Chloride (Ditropan) 2.5 mg BID PO Last administered on 09/11/18 20: 05; Start 06/21/18 at 21:00 Potassium Chloride (Klor-Con) 20 meq DAILY PO Last administered on 09/11/18 07: 35; Start 06/22/18 at 09:00 Tamsulosin HCl (Flomax) 0.8 mg DAILY PO Last administered on 09/11/18 07:35; Start 06/22/18 at 09:00 Amlodipine Besylate (Norvasc) 10 mg DAILY PO Last administered on 09/11/18 07: 36; Start 06/22/18 at 09:00 Baclofen (Lioresal) 10 mg QID PO Last administered on 07/07/18 19:36; Start 06/21/18 at 21:00; Stop 07/08/18 at 11:48; Status DC Bisacodyl (Dulcolax Supp) 10 mg PRN DAILY PRN [place] CONSTIPATION; Start 06/21/18 at 20:45 Buspirone HCl (Buspar) 10 mg TID PO Last administered on 09/11/18 20:05; Start 06/21/18 at 21:00 Divalproex Sodium (Depakote Er) 1,500 mg HS PO Last administered on 09/11/18 20 :05; Start 06/21/18 at 21:00 Non-Formulary Medication (Gabapentin ) 800 mg QID PO ; Start 06/21/18 at 21:00 ; Status UNV Levothyroxine Sodium (Synthroid) 50 mcg DAILY06 PO Last administered on 06:24; Start 06/22/18 at 06:00 Multivitamins/ Calcium (Thera-M Plus) 1 tab DAILY PO Last administered on 07:35; Start 06/22/18 at 09:00 Olanzapine (ZyPREXA ZYDIS) 2.5 mg PRN Q2HR PRN PO PSYCHOSIS Last administered on 08/10/18 20:19; Start 06/21/18 at 20:45 Olanzapine (ZyPREXA) 5 mg BID PO Last administered on 06/23/18at 08:47; Start 06/21/18 at 21:00; Stop 06/23/18 at 17:06; Status DC Risperidone (RisperDAL) 1.5 mg HS PO Last administered on 06/23/18 19:45; Start 06/21/18 at 21:00; Stop 06/24/18 at 11:06; Status DC Trazodone HCl (Desyrel) 50 mg PRN QHS PRN PO INSOMNIA Last administered on 20:19; Start 06/21/18 at 21:00; Stop 08/10/18 at 21:07; Status DC Nicotine (Nicoderm Cq 7mg) 1 patch PRN DAILY PRN TD SMOKING CESSATION; Start 06/21/18 at 23:30; Stop 07/09/18 at 05:39; Status DC Vitamin D (Vitamin D3) 50,000 unit WEEKLY PO Last administered on 09/08/18at 07: 42; Start 06/23/18 at 16:30 Olanzapine (ZyPREXA) 5 mg DAILY PO Last administered on 06/25/18at 08:04; Start 06/24/18 at 09:00; Stop 06/26/18 at 00:00; Status DC Risperidone (RisperDAL) 1.75 mg HS PO Last administered on 07/06/18at 20:08; Start 06/24/18 at 21:00; Stop 07/07/18 at 12:40; Status DC Risperidone (RisperDAL) 2 mg HS PO Last administered on 08/10/18at 20:15; Start 07/07/18 at 21:00; Stop 08/10/18 at 21:07; Status DC Gabapentin (Neurontin) 600 mg QID PO Last administered on 09/11/18 20:06; Start 07/08/18 at 21:00 Nicotine (Nicoderm Cq 21mg) 1 patch DAILY TD Last administered on 07/30/18at 08 :54; Start 07/09/18 at 09:00; Stop 07/31/18 at 04:33; Status DC Clozapine (Clozaril) 25 mg DAILY PO Last administered on 07/27/18at 09:38; Start 07/13/18 at 09:00; Stop 07/27/18 at 16:52; Status DC Vitamin D (Vitamin D3) 50,000 unit WEEKLY PO ; Start 07/24/18 at 09:00; Status Cancel Clozapine (Clozaril) 50 mg DAILY PO Last administered on 08/03/18at 07:51; Start 07/28/18 at 09:00; Stop 08/03/18 at 21:09; Status DC Nicotine (Nicoderm Cq 21mg) 1 patch PRN DAILY PRN TD SMOKING CESSATION Last administered on 08/20/18at 09:30; Start 07/31/18 at 04:45; Stop 08/21/18 at 10: 24; Status DC Clozapine (Clozaril) 75 mg HS PO Last administered on 08/08/18at 19:36; Start 08/04/18 at 21:00; Stop 08/09/18 at 17:33; Status DC Clozapine (Clozaril) 25 mg 1X ONCE PO Last administered on 08/03/18at 21:25; Start 08/03/18 at 21:30; Stop 08/03/18 at 21:31; Status DC Clozapine (Clozaril) 100 mg QHS PO Last administered on 08/15/18at 20:03; Start 08/09/18 at 21:00; Stop 08/16/18 at 16:48; Status DC Risperidone (RisperDAL) 1.5 mg HS PO Last administered on 08/16/18at 19:21; Start 08/11/18 at 21:00; Stop 08/17/18 at 16:27; Status DC Trazodone HCl (Desyrel) 50 mg QHS PO ; Start 08/11/18 at 21:00; Stop 08/11/18 at 21:00; Status DC Ondansetron HCl (Zofran Odt) 4 mg PRN Q8HRS PRN PO NAUSEA/VOMITING Last administered on 08/12/18at 11:11; Start 08/12/18 at 10:45; Stop 08/12/18 at 16:29; Status DC Ondansetron HCl (Zofran Odt) 4 mg PRN Q4HRS PRN PO NAUSEA/VOMITING Last administered on 08/13/18at 08:20; Start 08/12/18 at 16:30 Clonazepam (KlonoPIN) 0.75 mg DAILY PO Last administered on 09/11/18at 07:38; Start 08/15/18 at 09:00 Clonazepam (KlonoPIN) 1 mg HS PO Last administered on 08/16/18at 19:26; Start 08/15/18 at 21:00; Stop 08/16/18 at 21:00; Status DC Clonazepam (KlonoPIN) 0.75 mg HS PO Last administered on 09/11/18at 20:07; Start 08/17/18 at 21:00 Clozapine (Clozaril) 125 mg QHS PO Last administered on 08/22/18 19:46; Start 08/16/18 at 21:00; Stop 08/23/18 at 16:56; Status DC Iohexol (Omnipaque 300 Mg/ml) 75 ml 1X ONCE IV ; Start 08/16/18 at 18:15; Stop 08/16/18 at 18:16; Status DC Iohexol (Omnipaque 300 Mg/ml) 75 ml 1X ONCE IV Last administered on 08/17/18at 09:12; Start 08/17/18 at 08:00; Stop 08/17/18 at 08:01; Status DC Iohexol (Omnipaque 300 Mg/ml) 75 ml 1X ONCE IV ; Start 08/17/18 at 09:00; Stop 08/17/18 at 09:02; Status DC Risperidone (RisperDAL) 1 mg QHS PO Last administered on 08/22/18 19:46; Start 08/17/18 at 21:00; Stop 08/23/18 at 16:56; Status DC Nicotine (Nicoderm Cq 21mg) 1 patch DAILY TD Last administered on 09/05/18 08: 03; Start 08/21/18 at 10:30; Stop 09/06/18 at 02:22; Status DC Clozapine (Clozaril) 150 mg QHS PO Last administered on 09/06/18 19:30; Start 08/23/18 at 21:00; Stop 09/07/18 at 18:46; Status DC Risperidone (RisperDAL) 0.5 mg HS PO Last administered on 09/06/18 19:30; Start 08/23/18 at 21:00; Stop 09/07/18 at 18:46; Status DC Nicotine (Nicoderm Cq 14mg) 1 patch DAILY TD Last administered on 09/11/18 07: 34; Start 09/06/18 at 09:00 Clozapine (Clozaril) 100 mg QHS PO Last administered on 09/11/18 20:06; Start 09/07/18 at 21:00 Clozapine (Clozaril) 75 mg QHS PO Last administered on 09/11/18 20:05; Start at 21:00 Simethicone (Gas-X) 80 mg PRN AFTMEALHC PRN PO GAS / BLOATING; Start 09/08/18 at 16:30 Docusate Sodium (Colace) 100 mg BID PO Last administered on 09/11/18at 20:07; Start 09/09/18 at 21:00 Polyethylene Glycol (miraLAX) 17 gm DAILY PO Last administered on 09/11/18at 07: 35; Start 09/10/18 at 09:00 Active Scripts Active Reported Zyprexa (Olanzapine) 5 Mg Tablet 5 Mg PO BID NICODERM CQ 7mg (Nicotine) 1 Each Patch.td24 1 Patch TD PRN DAILY PRN Trazodone Hcl 50 Mg Tablet 50 Mg PO PRN QHS PRN Risperdal (Risperidone) 1 Mg Tablet 1.5 Mg PO HS Analgesic [place] (Methyl Salicylate/Menthol) 28 Gm Oint...g. 1 Gerri TP PRN QID PRN Milk Of Magnesia (Magnesium Hydroxide) 400 Mg/5 Ml Oral.susp 400 Mg PO PRN DAILY PRN Mag-Al Plus Xs Suspension (Mag Hydrox/Al Hydrox/Simeth) 30 Ml Oral.susp 15 Ml PO PRN AFTMEALHC PRN Buspirone Hcl 10 Mg Tablet 10 Mg PO TID Baclofen 10 Mg Tablet 10 Mg PO QID Gabapentin 100 Mg Capsule 100 Mg PO QID Gabapentin 800 Mg Tablet 800 Mg PO QID Levothyroxine Sodium 50 Mcg Tablet 50 Mcg PO DAILYAC Klonopin (Clonazepam) 0.5 Mg Tablet 1 Mg PO BID Norvasc (Amlodipine Besylate) 10 Mg Tablet 10 Mg PO DAILY Oxybutynin Chloride 5 Mg Tablet 2.5 Mg PO BID Depakote Er (Divalproex Sodium) 500 Mg Tab.er.24h 1,500 Mg PO HS Klor-Con M20 (Potassium Chloride) 20 Meq Tab.er.prt 20 Meq PO DAILY Cymbalta (Duloxetine Hcl) 60 Mg Capsule.dr 60 Mg PO DAILY Multivitamin with Iron Tablet (Multivitamin/Iron/Folic Acid) 1 Each Tablet 1 Tab PO DAILY Flomax (Tamsulosin Hcl) 0.4 Mg Cap.er.24h 0.8 Mg PO DAILY Olanzapine 5 Mg Tablet 2.5 Mg PO PRN Q2HR PRN MDD 10mg/ 24 hrs Remeron (Mirtazapine) 15 Mg Tablet 7.5 Mg PO HS Bisacodyl 10 Mg Supp.rect 10 Mg RC PRN DAILY PRN Tylenol (Acetaminophen) 325 Mg Tablet 650 Mg PO PRN Q6HRS PRN I have reviewed the current psychotropics carefully including drug interactions. Risk benefit ratio favors no change other than as noted in my dictated progress note. Diagnosis: Problems: (1) Depression (2) Schizoaffective disorder (3) Anxiety disorder (4) Impulse control disorder (5) Schizophrenia, paranoid, chronic with acute exacerbation CATHY EMERY MD Sep 11, 2018 22:25
[2018-09-12 06:05] VITALS: BP 109/73
[2018-09-12] MEDS: LEVOTHYROXINE 50 MCG TABLET PO SCH (06:18)
[2018-09-12] MEDS: MULTIVITAMIN with MINERAL TABLET. PO SCH (07:35)
[2018-09-12] MEDS: busPIRone 10 MG TABLET. PO SCH ×3 (07:35→20:11)
[2018-09-12] MEDS: DOCUSATE SODIUM 100 MG CAPSULE PO SCH ×2 (07:35→20:06)
[2018-09-12] MEDS: TAMSULOSIN 0.4 MG CAP.ER.24H. PO SCH (07:35)
[2018-09-12] MEDS: POTASSIUM CHLORIDE 20 MEQ TABLET.ER. PO SCH (07:35)
[2018-09-12] MEDS: amLODIPine BESYLATE 10 MG TABLET PO SCH (07:36)
[2018-09-12] MEDS: OXYBUTYNIN CHLORIDE 5 MG TABLET PO SCH ×2 (07:36→20:06)
[2018-09-12] MEDS: POLYETHYLENE GLYCOL 3350 17 GM PACKET. PO SCH (07:36)
[2018-09-12] MEDS: NICOTINE 14MG PATCH. TD SCH (07:36)
[2018-09-12] MEDS: GABAPENTIN 300 MG CAPSULE. PO SCH ×4 (07:38→20:08)
[2018-09-12] MEDS: clonazePAM 0.5 MG TABLET PO SCH ×2 (07:38→20:09)
[2018-09-12 16:09] VITALS: BP 136/83
[2018-09-12] MEDS: cloZAPine 100 MG TABLET PO SCH (20:05)
[2018-09-12] MEDS: cloZAPine 25 MG TABLET PO SCH (20:06)
[2018-09-12] MEDS: DIVALPROEX ER 500 MG TAB.ER.24H PO SCH (20:07)
--- NOTE | 2018-09-12 22:27 | PDOC ---
Exam Note: Nguyễn Note: Please also refer to the separate dictated note~for this date of service dictated separately.~Patient seen individually. Discussed the patient with Nursing staff reviewed the chart.~Reviewed interim history and current functioning. Reviewed vital signs,~Labs/ Radiology~and current medications noted below. Continue current treatment with the changes noted in the dictated addendum note Assessment: Vital Signs: Vital Signs Date Time Temp Pulse Resp B/P (MAP) Pulse Ox O2 Delivery O2 Flow Rate FiO2 09/12/18 16:09 97.7 92 18 136/83 (100) 97 Room Air I&O Intake and Output 09/12/18 07:01 Intake Total 840 ml Balance 840 ml Intake Oral 840 ml Current Medications: Meds: Current Medications Acetaminophen (Tylenol) 650 mg PRN Q6HRS PRN PO PAIN / TEMP Last administered on 09/09/18 10:13; Start 06/21/18 at 20:15 Clonazepam (KlonoPIN) 1 mg BID PO Last administered on 08/14/18 19:19; Start 06/21/18 at 21:00; Stop 08/14/18 at 21:25; Status DC Gabapentin (Neurontin) 900 mg QID PO Last administered on 07/08/18at 16:58; Start 06/21/18 at 21:00; Stop 07/08/18 at 17:47; Status DC Al Hydroxide/Mg Hydroxide (Mylanta Plus Xs) 15 ml PRN AFTMEALHC PRN PO GI SYMPTOMS Last administered on 08/22/18 09:18; Start 06/21/18 at 20:15 Magnesium Hydroxide (Milk Of Magnesia) 400 mg PRN DAILY PRN PO CONSTIPATION Last administered on 09/09/18 14:28; Start 06/21/18 at 20:15 Multi-Ingredient Ointment (Analgesic [place]) 1 gerri PRN QID PRN TP MUSCLE PAIN Last administered on 09/04/18 06:17; Start 06/21/18 at 20:15 Oxybutynin Chloride (Ditropan) 2.5 mg BID PO Last administered on 09/12/18 20: 06; Start 06/21/18 at 21:00 Potassium Chloride (Klor-Con) 20 meq DAILY PO Last administered on 09/12/18 07: 35; Start 06/22/18 at 09:00 Tamsulosin HCl (Flomax) 0.8 mg DAILY PO Last administered on 09/12/18 07:35; Start 06/22/18 at 09:00 Amlodipine Besylate (Norvasc) 10 mg DAILY PO Last administered on 09/12/18 07: 36; Start 06/22/18 at 09:00 Baclofen (Lioresal) 10 mg QID PO Last administered on 07/07/18 19:36; Start 06/21/18 at 21:00; Stop 07/08/18 at 11:48; Status DC Bisacodyl (Dulcolax Supp) 10 mg PRN DAILY PRN [place] CONSTIPATION; Start 06/21/18 at 20:45 Buspirone HCl (Buspar) 10 mg TID PO Last administered on 09/12/18 20:11; Start 06/21/18 at 21:00 Divalproex Sodium (Depakote Er) 1,500 mg HS PO Last administered on 09/12/18 20 :07; Start 06/21/18 at 21:00 Non-Formulary Medication (Gabapentin ) 800 mg QID PO ; Start 06/21/18 at 21:00 ; Status UNV Levothyroxine Sodium (Synthroid) 50 mcg DAILY06 PO Last administered on 06:18; Start 06/22/18 at 06:00 Multivitamins/ Calcium (Thera-M Plus) 1 tab DAILY PO Last administered on 07:35; Start 06/22/18 at 09:00 Olanzapine (ZyPREXA ZYDIS) 2.5 mg PRN Q2HR PRN PO PSYCHOSIS Last administered on 08/10/18 20:19; Start 06/21/18 at 20:45 Olanzapine (ZyPREXA) 5 mg BID PO Last administered on 06/23/18at 08:47; Start 06/21/18 at 21:00; Stop 06/23/18 at 17:06; Status DC Risperidone (RisperDAL) 1.5 mg HS PO Last administered on 06/23/18at 19:45; Start 06/21/18 at 21:00; Stop 06/24/18 at 11:06; Status DC Trazodone HCl (Desyrel) 50 mg PRN QHS PRN PO INSOMNIA Last administered on 20:19; Start 06/21/18 at 21:00; Stop 08/10/18 at 21:07; Status DC Nicotine (Nicoderm Cq 7mg) 1 patch PRN DAILY PRN TD SMOKING CESSATION; Start 06/21/18 at 23:30; Stop 07/09/18 at 05:39; Status DC Vitamin D (Vitamin D3) 50,000 unit WEEKLY PO Last administered on 09/08/18at 07: 42; Start 06/23/18 at 16:30 Olanzapine (ZyPREXA) 5 mg DAILY PO Last administered on 06/25/18at 08:04; Start 06/24/18 at 09:00; Stop 06/26/18 at 00:00; Status DC Risperidone (RisperDAL) 1.75 mg HS PO Last administered on 07/06/18at 20:08; Start 06/24/18 at 21:00; Stop 07/07/18 at 12:40; Status DC Risperidone (RisperDAL) 2 mg HS PO Last administered on 08/10/18at 20:15; Start 07/07/18 at 21:00; Stop 08/10/18 at 21:07; Status DC Gabapentin (Neurontin) 600 mg QID PO Last administered on 09/12/18 20:08; Start 07/08/18 at 21:00 Nicotine (Nicoderm Cq 21mg) 1 patch DAILY TD Last administered on 07/30/18at 08 :54; Start 07/09/18 at 09:00; Stop 07/31/18 at 04:33; Status DC Clozapine (Clozaril) 25 mg DAILY PO Last administered on 07/27/18at 09:38; Start 07/13/18 at 09:00; Stop 07/27/18 at 16:52; Status DC Vitamin D (Vitamin D3) 50,000 unit WEEKLY PO ; Start 07/24/18 at 09:00; Status Cancel Clozapine (Clozaril) 50 mg DAILY PO Last administered on 08/03/18at 07:51; Start 07/28/18 at 09:00; Stop 08/03/18 at 21:09; Status DC Nicotine (Nicoderm Cq 21mg) 1 patch PRN DAILY PRN TD SMOKING CESSATION Last administered on 08/20/18at 09:30; Start 07/31/18 at 04:45; Stop 08/21/18 at 10: 24; Status DC Clozapine (Clozaril) 75 mg HS PO Last administered on 08/08/18at 19:36; Start 08/04/18 at 21:00; Stop 08/09/18 at 17:33; Status DC Clozapine (Clozaril) 25 mg 1X ONCE PO Last administered on 08/03/18at 21:25; Start 08/03/18 at 21:30; Stop 08/03/18 at 21:31; Status DC Clozapine (Clozaril) 100 mg QHS PO Last administered on 08/15/18at 20:03; Start 08/09/18 at 21:00; Stop 08/16/18 at 16:48; Status DC Risperidone (RisperDAL) 1.5 mg HS PO Last administered on 08/16/18at 19:21; Start 08/11/18 at 21:00; Stop 08/17/18 at 16:27; Status DC Trazodone HCl (Desyrel) 50 mg QHS PO ; Start 08/11/18 at 21:00; Stop 08/11/18 at 21:00; Status DC Ondansetron HCl (Zofran Odt) 4 mg PRN Q8HRS PRN PO NAUSEA/VOMITING Last administered on 08/12/18at 11:11; Start 08/12/18 at 10:45; Stop 08/12/18 at 16:29; Status DC Ondansetron HCl (Zofran Odt) 4 mg PRN Q4HRS PRN PO NAUSEA/VOMITING Last administered on 08/13/18at 08:20; Start 08/12/18 at 16:30 Clonazepam (KlonoPIN) 0.75 mg DAILY PO Last administered on 09/12/18at 07:38; Start 08/15/18 at 09:00 Clonazepam (KlonoPIN) 1 mg HS PO Last administered on 08/16/18at 19:26; Start 08/15/18 at 21:00; Stop 08/16/18 at 21:00; Status DC Clonazepam (KlonoPIN) 0.75 mg HS PO Last administered on 09/12/18at 20:09; Start 08/17/18 at 21:00 Clozapine (Clozaril) 125 mg QHS PO Last administered on 08/22/18 19:46; Start 08/16/18 at 21:00; Stop 08/23/18 at 16:56; Status DC Iohexol (Omnipaque 300 Mg/ml) 75 ml 1X ONCE IV ; Start 08/16/18 at 18:15; Stop 08/16/18 at 18:16; Status DC Iohexol (Omnipaque 300 Mg/ml) 75 ml 1X ONCE IV Last administered on 08/17/18at 09:12; Start 08/17/18 at 08:00; Stop 08/17/18 at 08:01; Status DC Iohexol (Omnipaque 300 Mg/ml) 75 ml 1X ONCE IV ; Start 08/17/18 at 09:00; Stop 08/17/18 at 09:02; Status DC Risperidone (RisperDAL) 1 mg QHS PO Last administered on 08/22/18 19:46; Start 08/17/18 at 21:00; Stop 08/23/18 at 16:56; Status DC Nicotine (Nicoderm Cq 21mg) 1 patch DAILY TD Last administered on 09/05/18 08: 03; Start 08/21/18 at 10:30; Stop 09/06/18 at 02:22; Status DC Clozapine (Clozaril) 150 mg QHS PO Last administered on 09/06/18 19:30; Start 08/23/18 at 21:00; Stop 09/07/18 at 18:46; Status DC Risperidone (RisperDAL) 0.5 mg HS PO Last administered on 09/06/18 19:30; Start 08/23/18 at 21:00; Stop 09/07/18 at 18:46; Status DC Nicotine (Nicoderm Cq 14mg) 1 patch DAILY TD Last administered on 09/12/18 07: 36; Start 09/06/18 at 09:00 Clozapine (Clozaril) 100 mg QHS PO Last administered on 09/12/18 20:05; Start 09/07/18 at 21:00 Clozapine (Clozaril) 75 mg QHS PO Last administered on 09/12/18 20:06; Start at 21:00 Simethicone (Gas-X) 80 mg PRN AFTMEALHC PRN PO GAS / BLOATING; Start 09/08/18 at 16:30 Docusate Sodium (Colace) 100 mg BID PO Last administered on 09/12/18at 20:06; Start 09/09/18 at 21:00 Polyethylene Glycol (miraLAX) 17 gm DAILY PO Last administered on 09/12/18at 07: 36; Start 09/10/18 at 09:00 Active Scripts Active Reported Zyprexa (Olanzapine) 5 Mg Tablet 5 Mg PO BID NICODERM CQ 7mg (Nicotine) 1 Each Patch.td24 1 Patch TD PRN DAILY PRN Trazodone Hcl 50 Mg Tablet 50 Mg PO PRN QHS PRN Risperdal (Risperidone) 1 Mg Tablet 1.5 Mg PO HS Analgesic [place] (Methyl Salicylate/Menthol) 28 Gm Oint...g. 1 Gerri TP PRN QID PRN Milk Of Magnesia (Magnesium Hydroxide) 400 Mg/5 Ml Oral.susp 400 Mg PO PRN DAILY PRN Mag-Al Plus Xs Suspension (Mag Hydrox/Al Hydrox/Simeth) 30 Ml Oral.susp 15 Ml PO PRN AFTMEALHC PRN Buspirone Hcl 10 Mg Tablet 10 Mg PO TID Baclofen 10 Mg Tablet 10 Mg PO QID Gabapentin 100 Mg Capsule 100 Mg PO QID Gabapentin 800 Mg Tablet 800 Mg PO QID Levothyroxine Sodium 50 Mcg Tablet 50 Mcg PO DAILYAC Klonopin (Clonazepam) 0.5 Mg Tablet 1 Mg PO BID Norvasc (Amlodipine Besylate) 10 Mg Tablet 10 Mg PO DAILY Oxybutynin Chloride 5 Mg Tablet 2.5 Mg PO BID Depakote Er (Divalproex Sodium) 500 Mg Tab.er.24h 1,500 Mg PO HS Klor-Con M20 (Potassium Chloride) 20 Meq Tab.er.prt 20 Meq PO DAILY Cymbalta (Duloxetine Hcl) 60 Mg Capsule.dr 60 Mg PO DAILY Multivitamin with Iron Tablet (Multivitamin/Iron/Folic Acid) 1 Each Tablet 1 Tab PO DAILY Flomax (Tamsulosin Hcl) 0.4 Mg Cap.er.24h 0.8 Mg PO DAILY Olanzapine 5 Mg Tablet 2.5 Mg PO PRN Q2HR PRN MDD 10mg/ 24 hrs Remeron (Mirtazapine) 15 Mg Tablet 7.5 Mg PO HS Bisacodyl 10 Mg Supp.rect 10 Mg RC PRN DAILY PRN Tylenol (Acetaminophen) 325 Mg Tablet 650 Mg PO PRN Q6HRS PRN I have reviewed the current psychotropics carefully including drug interactions. Risk benefit ratio favors no change other than as noted in my dictated progress note. Diagnosis: Problems: (1) Depression (2) Schizoaffective disorder (3) Anxiety disorder (4) Impulse control disorder (5) Schizophrenia, paranoid, chronic with acute exacerbation CATHY EMERY MD Sep 12, 2018 22:27
--- NOTE | 2018-09-13 02:28 | PN ---
DATE: 09/10/2018 PSYCHIATRIC PROGRESS NOTE This late entry 09/10/2018 covers elements not covered in my initial note. SUBJECTIVE: I met with the patient in the evening. The patient slept 5-1/4 hours previous night. He remains somewhat obsessed with his bowels, received MiraLax and Colace. REVIEW OF SYSTEMS: Ambulation impaired with walker. No CV, , pulmonary, eye system symptoms on review. I met with him in his room. MENTAL STATUS EXAM: Oriented to himself and situation. Speech coherent, abstraction fair, computation impaired, language function intact, attention span short. Mood and affect still remains somewhat withdrawn, but much less psychotic. LABORATORY DATA: Reviewed. IMPRESSION: Unchanged from initial note. PLAN: No change from initial note. CATHY EMERY MD DR: SARINA/nilda JOB#: [id number] / [id number]
[2018-09-13] MEDS: LEVOTHYROXINE 50 MCG TABLET PO SCH (05:32)
[2018-09-13 06:12] VITALS: BP 135/78
[2018-09-13] MEDS: NICOTINE 14MG PATCH. TD SCH (09:03)
[2018-09-13] MEDS: POLYETHYLENE GLYCOL 3350 17 GM PACKET. PO SCH (09:03)
[2018-09-13] MEDS: GABAPENTIN 300 MG CAPSULE. PO SCH ×4 (09:03→20:54)
[2018-09-13] MEDS: amLODIPine BESYLATE 10 MG TABLET PO SCH (09:03)
[2018-09-13] MEDS: DOCUSATE SODIUM 100 MG CAPSULE PO SCH ×2 (09:04→20:51)
[2018-09-13] MEDS: OXYBUTYNIN CHLORIDE 5 MG TABLET PO SCH ×2 (09:04→20:51)
[2018-09-13] MEDS: MULTIVITAMIN with MINERAL TABLET. PO SCH (09:04)
[2018-09-13] MEDS: busPIRone 10 MG TABLET. PO SCH ×3 (09:04→20:51)
[2018-09-13] MEDS: POTASSIUM CHLORIDE 20 MEQ TABLET.ER. PO SCH (09:04)
[2018-09-13] MEDS: TAMSULOSIN 0.4 MG CAP.ER.24H. PO SCH (09:04)
[2018-09-13] MEDS: clonazePAM 0.5 MG TABLET PO SCH ×2 (09:06→20:54)
[2018-09-13 10:03] LABS: BASO # 0.1 x10^3/uL (0.0-0.2); BASO % 1 % (0-3); EOS # 0.3 x10^3/uL (0.0-0.7); EOS % 4 % (0-3); HEMATOCRIT 42.3 % (39.0-53.0); HEMOGLOBIN 14.4 g/dL (13.0-17.5); LYMPH # 1.6 x10^3/uL (1.0-4.8); LYMPH % 19 % (24-48); MEAN CORPUSCULAR HEMOGLOBIN 30 pg (25-35); MEAN CORPUSCULAR HGB CONC 34 g/dL (31-37); MEAN CORPUSCULAR VOLUME 88 fL (79-100); MONO # 0.7 x10^3/uL (0.0-1.1); MONO % 8 % (0-9); NEUT # 5.8 x10^3uL (1.8-7.7); NEUT % 68 % (31-73); PLATELET COUNT 355 x10^3/uL (140-400); RED BLOOD COUNT 4.83 x10^6/uL (4.30-5.70); RED CELL DISTRIBUTION WIDTH 13.4 % (11.5-14.5); WHITE BLOOD COUNT 8.5 x10^3/uL (4.0-11.0)
[2018-09-13 10:18] LABS: ALBUMIN 2.9 g/dL (3.4-5.0); ALBUMIN/GLOBULIN RATIO 0.7 (1.0-1.7); CALCIUM 8.6 mg/dL (8.5-10.1); CREATININE 0.6 mg/dL (0.7-1.3); GFR 138.9; POTASSIUM 3.7 mmol/L (3.5-5.1); TOTAL BILIRUBIN 0.3 mg/dL (0.2-1.0); TOTAL PROTEIN 6.8 g/dL (6.4-8.2)
[2018-09-13 16:15] VITALS: BP 111/81
[2018-09-13] MEDS: DIVALPROEX ER 500 MG TAB.ER.24H PO SCH (20:51)
[2018-09-13] MEDS: cloZAPine 100 MG TABLET PO SCH (20:54)
[2018-09-13] MEDS ORDERED: cloZAPine 100 MG TABLET PO SCH (21:00)
--- NOTE | 2018-09-13 22:05 | PN ---
DATE: 09/11/2018 This late entry for 09/11/2018 covers elements not covered in my initial note. SUBJECTIVE: I met with the patient in the evening. The patient slept 9-1/2 hours previous night. I met with him in his room at length. He remains somewhat isolative, fixated on wanting to be discharged, and we addressed this. He is aware of everything. Social service staff is doing to expedite this. REVIEW OF SYSTEMS: Ambulation impaired with walker. No CV, , pulmonary, eye, ENT system symptoms on review. Reliability fair. MENTAL STATUS EXAM: Oriented to himself and situation. Speech has some latency, coherent. Abstraction fair, computation impaired, language function intact, attention span short. Mood and affect somewhat withdrawn. LABORATORY DATA: Reviewed. IMPRESSION: Unchanged from initial note. PLAN: No change from initial note. MAN Ty EMERY MD DR: SARINA/nilda JOB#: [id number] / [id number]
--- NOTE | 2018-09-13 22:33 | PDOC ---
Exam Note: Nguyễn Note: Please also refer to the separate dictated note~for this date of service dictated separately.~Patient seen individually. Discussed the patient with Nursing staff reviewed the chart.~Reviewed interim history and current functioning. Reviewed vital signs,~Labs/ Radiology~and current medications noted below. Continue current treatment with the changes noted in the dictated addendum note Assessment: Vital Signs: Vital Signs Date Time Temp Pulse Resp B/P (MAP) Pulse Ox O2 Delivery O2 Flow Rate FiO2 09/13/18 16:15 98.0 83 20 111/81 (91) 96 09/12/18 16:09 Room Air I&O Intake and Output 09/13/18 07:01 Intake Total 1080 ml Balance 1080 ml Intake Oral 1080 ml Labs: Laboratory Tests Test 09/13/18 09:07 White Blood Count 8.5 x10^3/uL (4.0-11.0) Red Blood Count 4.83 x10^6/uL (4.30-5.70) Hemoglobin 14.4 g/dL (13.0-17.5) Hematocrit 42.3 % (39.0-53.0) Mean Corpuscular Volume 88 fL (79-100) Mean Corpuscular Hemoglobin 30 pg (25-35) Mean Corpuscular Hemoglobin Concent 34 g/dL (31-37) Red Cell Distribution Width 13.4 % (11.5-14.5) Platelet Count 355 x10^3/uL (140-400) Neutrophils (%) (Auto) 68 % (31-73) Lymphocytes (%) (Auto) 19 % (24-48) L Monocytes (%) (Auto) 8 % (0-9) Eosinophils (%) (Auto) 4 % (0-3) H Basophils (%) (Auto) 1 % (0-3) Neutrophils # (Auto) 5.8 x10^3uL (1.8-7.7) Lymphocytes # (Auto) 1.6 x10^3/uL (1.0-4.8) Monocytes # (Auto) 0.7 x10^3/uL (0.0-1.1) Eosinophils # (Auto) 0.3 x10^3/uL (0.0-0.7) Basophils # (Auto) 0.1 x10^3/uL (0.0-0.2) Sodium Level 138 mmol/L (136-145) Potassium Level 3.7 mmol/L (3.5-5.1) Chloride Level 101 mmol/L (98-107) Carbon Dioxide Level 29 mmol/L (21-32) Anion Gap 8 (6-14) Blood Urea Nitrogen 11 mg/dL (8-26) Creatinine 0.6 mg/dL (0.7-1.3) L Estimated GFR (Cockcroft-Gault) 138.9 BUN/Creatinine Ratio 18 (6-20) Glucose Level 96 mg/dL (70-99) Calcium Level 8.6 mg/dL (8.5-10.1) Total Bilirubin 0.3 mg/dL (0.2-1.0) Aspartate Amino Transferase (AST) 32 U/L (15-37) Alanine Aminotransferase (ALT) 45 U/L (16-63) Alkaline Phosphatase 56 U/L (46-116) Total Protein 6.8 g/dL (6.4-8.2) Albumin 2.9 g/dL (3.4-5.0) L Albumin/Globulin Ratio 0.7 (1.0-1.7) L Current Medications: Meds: Current Medications Acetaminophen (Tylenol) 650 mg PRN Q6HRS PRN PO PAIN / TEMP Last administered on 09/09/18 10:13; Start 06/21/18 at 20:15 Clonazepam (KlonoPIN) 1 mg BID PO Last administered on 08/14/18 19:19; Start 06/21/18 at 21:00; Stop 08/14/18 at 21:25; Status DC Gabapentin (Neurontin) 900 mg QID PO Last administered on 07/08/18at 16:58; Start 06/21/18 at 21:00; Stop 07/08/18 at 17:47; Status DC Al Hydroxide/Mg Hydroxide (Mylanta Plus Xs) 15 ml PRN AFTMEALHC PRN PO GI SYMPTOMS Last administered on 08/22/18 09:18; Start 06/21/18 at 20:15 Magnesium Hydroxide (Milk Of Magnesia) 400 mg PRN DAILY PRN PO CONSTIPATION Last administered on 09/09/18 14:28; Start 06/21/18 at 20:15 Multi-Ingredient Ointment (Analgesic [place]) 1 gerri PRN QID PRN TP MUSCLE PAIN Last administered on 09/04/18 06:17; Start 06/21/18 at 20:15 Oxybutynin Chloride (Ditropan) 2.5 mg BID PO Last administered on 09/13/18 20: 51; Start 06/21/18 at 21:00 Potassium Chloride (Klor-Con) 20 meq DAILY PO Last administered on 09/13/18 09: 04; Start 06/22/18 at 09:00 Tamsulosin HCl (Flomax) 0.8 mg DAILY PO Last administered on 09/13/18 09:04; Start 06/22/18 at 09:00 Amlodipine Besylate (Norvasc) 10 mg DAILY PO Last administered on 09/13/18 09: 03; Start 06/22/18 at 09:00 Baclofen (Lioresal) 10 mg QID PO Last administered on 07/07/18 19:36; Start 06/21/18 at 21:00; Stop 07/08/18 at 11:48; Status DC Bisacodyl (Dulcolax Supp) 10 mg PRN DAILY PRN CO CONSTIPATION; Start 06/21/18 at 20:45 Buspirone HCl (Buspar) 10 mg TID PO Last administered on 09/13/18 20:51; Start 06/21/18 at 21:00 Divalproex Sodium (Depakote Er) 1,500 mg HS PO Last administered on 09/13/18 20 :51; Start 06/21/18 at 21:00 Non-Formulary Medication (Gabapentin ) 800 mg QID PO ; Start 06/21/18 at 21:00 ; Status UNV Levothyroxine Sodium (Synthroid) 50 mcg DAILY06 PO Last administered on 05:32; Start 06/22/18 at 06:00 Multivitamins/ Calcium (Thera-M Plus) 1 tab DAILY PO Last administered on 09:04; Start 06/22/18 at 09:00 Olanzapine (ZyPREXA ZYDIS) 2.5 mg PRN Q2HR PRN PO PSYCHOSIS Last administered on 08/10/18 20:19; Start 06/21/18 at 20:45 Olanzapine (ZyPREXA) 5 mg BID PO Last administered on 11/14/18at 08:47; Start 06/21/18 at 21:00; Stop 06/23/18 at 17:06; Status DC Risperidone (RisperDAL) 1.5 mg HS PO Last administered on 06/23/18at 19:45; Start 06/21/18 at 21:00; Stop 06/24/18 at 11:06; Status DC Trazodone HCl (Desyrel) 50 mg PRN QHS PRN PO INSOMNIA Last administered on 20:19; Start 06/21/18 at 21:00; Stop 08/10/18 at 21:07; Status DC Nicotine (Nicoderm Cq 7mg) 1 patch PRN DAILY PRN TD SMOKING CESSATION; Start 06/21/18 at 23:30; Stop 07/09/18 at 05:39; Status DC Vitamin D (Vitamin D3) 50,000 unit WEEKLY PO Last administered on 09/08/18at 07: 42; Start 06/23/18 at 16:30 Olanzapine (ZyPREXA) 5 mg DAILY PO Last administered on 06/25/18at 08:04; Start 06/24/18 at 09:00; Stop 06/26/18 at 00:00; Status DC Risperidone (RisperDAL) 1.75 mg HS PO Last administered on 07/06/18at 20:08; Start 06/24/18 at 21:00; Stop 07/07/18 at 12:40; Status DC Risperidone (RisperDAL) 2 mg HS PO Last administered on 08/10/18at 20:15; Start 07/07/18 at 21:00; Stop 08/10/18 at 21:07; Status DC Gabapentin (Neurontin) 600 mg QID PO Last administered on 09/13/18at 20:54; Start 07/08/18 at 21:00 Nicotine (Nicoderm Cq 21mg) 1 patch DAILY TD Last administered on 07/30/18at 08 :54; Start 07/09/18 at 09:00; Stop 07/31/18 at 04:33; Status DC Clozapine (Clozaril) 25 mg DAILY PO Last administered on 07/27/18at 09:38; Start 07/13/18 at 09:00; Stop 07/27/18 at 16:52; Status DC Vitamin D (Vitamin D3) 50,000 unit WEEKLY PO ; Start 07/24/18 at 09:00; Status Cancel Clozapine (Clozaril) 50 mg DAILY PO Last administered on 08/03/18at 07:51; Start 07/28/18 at 09:00; Stop 08/03/18 at 21:09; Status DC Nicotine (Nicoderm Cq 21mg) 1 patch PRN DAILY PRN TD SMOKING CESSATION Last administered on 08/20/18 09:30; Start 07/31/18 at 04:45; Stop 08/21/18 at 10: 24; Status DC Clozapine (Clozaril) 75 mg HS PO Last administered on 08/08/18at 19:36; Start 08/04/18 at 21:00; Stop 08/09/18 at 17:33; Status DC Clozapine (Clozaril) 25 mg 1X ONCE PO Last administered on 08/03/18at 21:25; Start 08/03/18 at 21:30; Stop 08/03/18 at 21:31; Status DC Clozapine (Clozaril) 100 mg QHS PO Last administered on 08/15/18at 20:03; Start 08/09/18 at 21:00; Stop 08/16/18 at 16:48; Status DC Risperidone (RisperDAL) 1.5 mg HS PO Last administered on 08/16/18 19:21; Start 08/11/18 at 21:00; Stop 08/17/18 at 16:27; Status DC Trazodone HCl (Desyrel) 50 mg QHS PO ; Start 08/11/18 at 21:00; Stop 08/11/18 at 21:00; Status DC Ondansetron HCl (Zofran Odt) 4 mg PRN Q8HRS PRN PO NAUSEA/VOMITING Last administered on 08/12/18 11:11; Start 08/12/18 at 10:45; Stop 08/12/18 at 16:29; Status DC Ondansetron HCl (Zofran Odt) 4 mg PRN Q4HRS PRN PO NAUSEA/VOMITING Last administered on 08/13/18 08:20; Start 08/12/18 at 16:30 Clonazepam (KlonoPIN) 0.75 mg DAILY PO Last administered on 09/13/18 09:06; Start 08/15/18 at 09:00 Clonazepam (KlonoPIN) 1 mg HS PO Last administered on 08/16/18 19:26; Start 08/15/18 at 21:00; Stop 08/16/18 at 21:00; Status DC Clonazepam (KlonoPIN) 0.75 mg HS PO Last administered on 09/13/18 20:54; Start 08/17/18 at 21:00 Clozapine (Clozaril) 125 mg QHS PO Last administered on 08/22/18 19:46; Start 08/16/18 at 21:00; Stop 08/23/18 at 16:56; Status DC Iohexol (Omnipaque 300 Mg/ml) 75 ml 1X ONCE IV ; Start 08/16/18 at 18:15; Stop 08/16/18 at 18:16; Status DC Iohexol (Omnipaque 300 Mg/ml) 75 ml 1X ONCE IV Last administered on 08/17/18 09:12; Start 08/17/18 at 08:00; Stop 08/17/18 at 08:01; Status DC Iohexol (Omnipaque 300 Mg/ml) 75 ml 1X ONCE IV ; Start 08/17/18 at 09:00; Stop 08/17/18 at 09:02; Status DC Risperidone (RisperDAL) 1 mg QHS PO Last administered on 08/22/18 19:46; Start 08/17/18 at 21:00; Stop 08/23/18 at 16:56; Status DC Nicotine (Nicoderm Cq 21mg) 1 patch DAILY TD Last administered on 09/05/18 08: 03; Start 08/21/18 at 10:30; Stop 09/06/18 at 02:22; Status DC Clozapine (Clozaril) 150 mg QHS PO Last administered on 09/06/18 19:30; Start 08/23/18 at 21:00; Stop 09/07/18 at 18:46; Status DC Risperidone (RisperDAL) 0.5 mg HS PO Last administered on 09/06/18 19:30; Start 08/23/18 at 21:00; Stop 09/07/18 at 18:46; Status DC Nicotine (Nicoderm Cq 14mg) 1 patch DAILY TD Last administered on 09/13/18 09: 03; Start 09/06/18 at 09:00 Clozapine (Clozaril) 100 mg QHS PO Last administered on 09/12/18at 20:05; Start 09/07/18 at 21:00; Stop 09/13/18 at 18:03; Status DC Clozapine (Clozaril) 75 mg QHS PO Last administered on 09/12/18at 20:06; Start at 21:00; Stop 09/13/18 at 18:04; Status DC Simethicone (Gas-X) 80 mg PRN AFTMEALHC PRN PO GAS / BLOATING; Start 09/08/18 at 16:30 Docusate Sodium (Colace) 100 mg BID PO Last administered on 09/13/18at 20:51; Start 09/09/18 at 21:00 Polyethylene Glycol (miraLAX) 17 gm DAILY PO Last administered on 09/13/18at 09: 03; Start 09/10/18 at 09:00 Clozapine (Clozaril) 200 mg QHS PO ; Start 09/13/18 at 21:00; Stop 09/13/18 at 21: 00; Status DC Clozapine (Clozaril) 200 mg QHS PO Last administered on 09/13/18at 20:54; Start 09/13/18 at 21:00 Active Scripts Active Reported Zyprexa (Olanzapine) 5 Mg Tablet 5 Mg PO BID NICODERM CQ 7mg (Nicotine) 1 Each Patch.td24 1 Patch TD PRN DAILY PRN Trazodone Hcl 50 Mg Tablet 50 Mg PO PRN QHS PRN Risperdal (Risperidone) 1 Mg Tablet 1.5 Mg PO HS Analgesic [place] (Methyl Salicylate/Menthol) 28 Gm Oint...g. 1 Gerri TP PRN QID PRN Milk Of Magnesia (Magnesium Hydroxide) 400 Mg/5 Ml Oral.susp 400 Mg PO PRN DAILY PRN Mag-Al Plus Xs Suspension (Mag Hydrox/Al Hydrox/Simeth) 30 Ml Oral.susp 15 Ml PO PRN AFTMEALHC PRN Buspirone Hcl 10 Mg Tablet 10 Mg PO TID Baclofen 10 Mg Tablet 10 Mg PO QID Gabapentin 100 Mg Capsule 100 Mg PO QID Gabapentin 800 Mg Tablet 800 Mg PO QID Levothyroxine Sodium 50 Mcg Tablet 50 Mcg PO DAILYAC Klonopin (Clonazepam) 0.5 Mg Tablet 1 Mg PO BID Norvasc (Amlodipine Besylate) 10 Mg Tablet 10 Mg PO DAILY Oxybutynin Chloride 5 Mg Tablet 2.5 Mg PO BID Depakote Er (Divalproex Sodium) 500 Mg Tab.er.24h 1,500 Mg PO HS Klor-Con M20 (Potassium Chloride) 20 Meq Tab.er.prt 20 Meq PO DAILY Cymbalta (Duloxetine Hcl) 60 Mg Capsule.dr 60 Mg PO DAILY Multivitamin with Iron Tablet (Multivitamin/Iron/Folic Acid) 1 Each Tablet 1 Tab PO DAILY Flomax (Tamsulosin Hcl) 0.4 Mg Cap.er.24h 0.8 Mg PO DAILY Olanzapine 5 Mg Tablet 2.5 Mg PO PRN Q2HR PRN MDD 10mg/ 24 hrs Remeron (Mirtazapine) 15 Mg Tablet 7.5 Mg PO HS Bisacodyl 10 Mg Supp.rect 10 Mg RC PRN DAILY PRN Tylenol (Acetaminophen) 325 Mg Tablet 650 Mg PO PRN Q6HRS PRN I have reviewed the current psychotropics carefully including drug interactions. Risk benefit ratio favors no change other than as noted in my dictated progress note. Diagnosis: Problems: (1) Depression (2) Schizoaffective disorder (3) Anxiety disorder (4) Impulse control disorder (5) Schizophrenia, paranoid, chronic with acute exacerbation CATHY EMERY MD Sep 13, 2018 22:33
--- NOTE | 2018-09-14 03:14 | PN ---
DATE: 09/12/2018 This late entry for 09/12/2018 covers elements not covered in my initial note. SUBJECTIVE: I met with the patient in the evening in his room. He slept 5-1/2 hours previous night. He has been withdrawn, but no clear suicidal or homicidal ideation. Less delusional. REVIEW OF SYSTEMS: Ambulation impaired with walker. No CV, , pulmonary, eye system symptoms on review. He is still fixated talking about discharge plans, addressed this with him. MENTAL STATUS EXAM: Oriented to himself and situation. Speech is coherent, abstraction fair, computation impaired, language function intact. Mood and affect is improved. IMPRESSION: Unchanged from initial note. PLAN: No change from initial note. MAN Ty EMERY MD DR: SARINA/nilda JOB#: [id number] / [id number]
[2018-09-14 06:17] VITALS: BP 129/89
[2018-09-14] MEDS: LEVOTHYROXINE 50 MCG TABLET PO SCH (06:31)
[2018-09-14] MEDS: POLYETHYLENE GLYCOL 3350 17 GM PACKET. PO SCH (07:58)
[2018-09-14] MEDS: DOCUSATE SODIUM 100 MG CAPSULE PO SCH ×2 (07:58→19:49)
[2018-09-14] MEDS: POTASSIUM CHLORIDE 20 MEQ TABLET.ER. PO SCH (07:59)
[2018-09-14] MEDS: TAMSULOSIN 0.4 MG CAP.ER.24H. PO SCH (07:59)
[2018-09-14] MEDS: NICOTINE 14MG PATCH. TD SCH (07:59)
[2018-09-14] MEDS: OXYBUTYNIN CHLORIDE 5 MG TABLET PO SCH ×2 (08:00→19:50)
[2018-09-14] MEDS: MULTIVITAMIN with MINERAL TABLET. PO SCH (08:00)
[2018-09-14] MEDS: clonazePAM 0.5 MG TABLET PO SCH ×2 (08:04→19:52)
[2018-09-14] MEDS: GABAPENTIN 300 MG CAPSULE. PO SCH ×4 (08:06→19:50)
[2018-09-14] MEDS: amLODIPine BESYLATE 10 MG TABLET PO SCH (08:06)
[2018-09-14] MEDS: busPIRone 5 MG TABLET. PO SCH ×3 (08:10→19:50)
[2018-09-14 17:03] VITALS: BP 136/87
[2018-09-14] MEDS: cloZAPine 100 MG TABLET PO SCH (19:49)
[2018-09-14] MEDS: DIVALPROEX ER 500 MG TAB.ER.24H PO SCH (19:50)
--- NOTE | 2018-09-14 22:50 | PDOC ---
Exam Note: Nguyễn Note: Please also refer to the separate dictated note~for this date of service dictated separately.~Patient seen individually. Discussed the patient with Nursing staff reviewed the chart.~Reviewed interim history and current functioning. Reviewed vital signs,~Labs/ Radiology~and current medications noted below. Continue current treatment with the changes noted in the dictated addendum note Assessment: Vital Signs: Vital Signs Date Time Temp Pulse Resp B/P (MAP) Pulse Ox O2 Delivery O2 Flow Rate FiO2 09/14/18 17:03 99.4 93 20 136/87 (103) 97 09/12/18 16:09 Room Air I&O Intake and Output 09/14/18 07:01 Intake Total 1080 ml Balance 1080 ml Intake Oral 1080 ml Current Medications: Meds: Current Medications Acetaminophen (Tylenol) 650 mg PRN Q6HRS PRN PO PAIN / TEMP Last administered on 09/09/18 10:13; Start 06/21/18 at 20:15 Clonazepam (KlonoPIN) 1 mg BID PO Last administered on 08/14/18 19:19; Start 06/21/18 at 21:00; Stop 08/14/18 at 21:25; Status DC Gabapentin (Neurontin) 900 mg QID PO Last administered on 07/08/18at 16:58; Start 06/21/18 at 21:00; Stop 07/08/18 at 17:47; Status DC Al Hydroxide/Mg Hydroxide (Mylanta Plus Xs) 15 ml PRN AFTMEALHC PRN PO GI SYMPTOMS Last administered on 08/22/18 09:18; Start 06/21/18 at 20:15 Magnesium Hydroxide (Milk Of Magnesia) 400 mg PRN DAILY PRN PO CONSTIPATION Last administered on 09/09/18 14:28; Start 06/21/18 at 20:15 Multi-Ingredient Ointment (Analgesic [place]) 1 gerri PRN QID PRN TP MUSCLE PAIN Last administered on 09/04/18 06:17; Start 06/21/18 at 20:15 Oxybutynin Chloride (Ditropan) 2.5 mg BID PO Last administered on 09/14/18 19: 50; Start 06/21/18 at 21:00 Potassium Chloride (Klor-Con) 20 meq DAILY PO Last administered on 09/14/18 07: 59; Start 06/22/18 at 09:00 Tamsulosin HCl (Flomax) 0.8 mg DAILY PO Last administered on 09/14/18 07:59; Start 06/22/18 at 09:00 Amlodipine Besylate (Norvasc) 10 mg DAILY PO Last administered on 09/14/18 08: 06; Start 06/22/18 at 09:00 Baclofen (Lioresal) 10 mg QID PO Last administered on 07/07/18 19:36; Start 06/21/18 at 21:00; Stop 07/08/18 at 11:48; Status DC Bisacodyl (Dulcolax Supp) 10 mg PRN DAILY PRN SD CONSTIPATION; Start 06/21/18 at 20:45 Buspirone HCl (Buspar) 10 mg TID PO Last administered on 09/13/18 20:51; Start 06/21/18 at 21:00; Stop 09/14/18 at 08:04; Status DC Divalproex Sodium (Depakote Er) 1,500 mg HS PO Last administered on 09/14/18 19 :50; Start 06/21/18 at 21:00 Non-Formulary Medication (Gabapentin ) 800 mg QID PO ; Start 06/21/18 at 21:00 ; Status UNV Levothyroxine Sodium (Synthroid) 50 mcg DAILY06 PO Last administered on 06:31; Start 06/22/18 at 06:00 Multivitamins/ Calcium (Thera-M Plus) 1 tab DAILY PO Last administered on 08:00; Start 06/22/18 at 09:00 Olanzapine (ZyPREXA ZYDIS) 2.5 mg PRN Q2HR PRN PO PSYCHOSIS Last administered on 08/10/18 20:19; Start 06/21/18 at 20:45 Olanzapine (ZyPREXA) 5 mg BID PO Last administered on 06/23/18 08:47; Start 06/21/18 at 21:00; Stop 06/23/18 at 17:06; Status DC Risperidone (RisperDAL) 1.5 mg HS PO Last administered on 06/23/18 19:45; Start 06/21/18 at 21:00; Stop 06/24/18 at 11:06; Status DC Trazodone HCl (Desyrel) 50 mg PRN QHS PRN PO INSOMNIA Last administered on 20:19; Start 06/21/18 at 21:00; Stop 08/10/18 at 21:07; Status DC Nicotine (Nicoderm Cq 7mg) 1 patch PRN DAILY PRN TD SMOKING CESSATION; Start 06/21/18 at 23:30; Stop 07/09/18 at 05:39; Status DC Vitamin D (Vitamin D3) 50,000 unit WEEKLY PO Last administered on 09/08/18at 07: 42; Start 06/23/18 at 16:30 Olanzapine (ZyPREXA) 5 mg DAILY PO Last administered on 06/25/18at 08:04; Start 06/24/18 at 09:00; Stop 06/26/18 at 00:00; Status DC Risperidone (RisperDAL) 1.75 mg HS PO Last administered on 07/06/18at 20:08; Start 06/24/18 at 21:00; Stop 07/07/18 at 12:40; Status DC Risperidone (RisperDAL) 2 mg HS PO Last administered on 08/10/18at 20:15; Start 07/07/18 at 21:00; Stop 08/10/18 at 21:07; Status DC Gabapentin (Neurontin) 600 mg QID PO Last administered on 09/14/18at 19:50; Start 07/08/18 at 21:00 Nicotine (Nicoderm Cq 21mg) 1 patch DAILY TD Last administered on 07/30/18at 08 :54; Start 07/09/18 at 09:00; Stop 07/31/18 at 04:33; Status DC Clozapine (Clozaril) 25 mg DAILY PO Last administered on 07/27/18at 09:38; Start 07/13/18 at 09:00; Stop 07/27/18 at 16:52; Status DC Vitamin D (Vitamin D3) 50,000 unit WEEKLY PO ; Start 07/24/18 at 09:00; Status Cancel Clozapine (Clozaril) 50 mg DAILY PO Last administered on 08/03/18at 07:51; Start 07/28/18 at 09:00; Stop 08/03/18 at 21:09; Status DC Nicotine (Nicoderm Cq 21mg) 1 patch PRN DAILY PRN TD SMOKING CESSATION Last administered on 08/20/18 09:30; Start 07/31/18 at 04:45; Stop 08/21/18 at 10: 24; Status DC Clozapine (Clozaril) 75 mg HS PO Last administered on 08/08/18at 19:36; Start 08/04/18 at 21:00; Stop 08/09/18 at 17:33; Status DC Clozapine (Clozaril) 25 mg 1X ONCE PO Last administered on 08/03/18at 21:25; Start 08/03/18 at 21:30; Stop 08/03/18 at 21:31; Status DC Clozapine (Clozaril) 100 mg QHS PO Last administered on 08/15/18 20:03; Start 08/09/18 at 21:00; Stop 08/16/18 at 16:48; Status DC Risperidone (RisperDAL) 1.5 mg HS PO Last administered on 08/16/18 19:21; Start 08/11/18 at 21:00; Stop 08/17/18 at 16:27; Status DC Trazodone HCl (Desyrel) 50 mg QHS PO ; Start 08/11/18 at 21:00; Stop 08/11/18 at 21:00; Status DC Ondansetron HCl (Zofran Odt) 4 mg PRN Q8HRS PRN PO NAUSEA/VOMITING Last administered on 08/12/18 11:11; Start 08/12/18 at 10:45; Stop 08/12/18 at 16:29; Status DC Ondansetron HCl (Zofran Odt) 4 mg PRN Q4HRS PRN PO NAUSEA/VOMITING Last administered on 08/13/18 08:20; Start 08/12/18 at 16:30 Clonazepam (KlonoPIN) 0.75 mg DAILY PO Last administered on 09/14/18 08:04; Start 08/15/18 at 09:00 Clonazepam (KlonoPIN) 1 mg HS PO Last administered on 08/16/18 19:26; Start 08/15/18 at 21:00; Stop 08/16/18 at 21:00; Status DC Clonazepam (KlonoPIN) 0.75 mg HS PO Last administered on 09/14/18 19:52; Start 08/17/18 at 21:00 Clozapine (Clozaril) 125 mg QHS PO Last administered on 08/22/18at 19:46; Start 08/16/18 at 21:00; Stop 08/23/18 at 16:56; Status DC Iohexol (Omnipaque 300 Mg/ml) 75 ml 1X ONCE IV ; Start 08/16/18 at 18:15; Stop 08/16/18 at 18:16; Status DC Iohexol (Omnipaque 300 Mg/ml) 75 ml 1X ONCE IV Last administered on 08/17/18at 09:12; Start 08/17/18 at 08:00; Stop 08/17/18 at 08:01; Status DC Iohexol (Omnipaque 300 Mg/ml) 75 ml 1X ONCE IV ; Start 08/17/18 at 09:00; Stop 08/17/18 at 09:02; Status DC Risperidone (RisperDAL) 1 mg QHS PO Last administered on 08/22/18at 19:46; Start 08/17/18 at 21:00; Stop 08/23/18 at 16:56; Status DC Nicotine (Nicoderm Cq 21mg) 1 patch DAILY TD Last administered on 09/05/18at 08: 03; Start 08/21/18 at 10:30; Stop 09/06/18 at 02:22; Status DC Clozapine (Clozaril) 150 mg QHS PO Last administered on 09/06/18at 19:30; Start 08/23/18 at 21:00; Stop 09/07/18 at 18:46; Status DC Risperidone (RisperDAL) 0.5 mg HS PO Last administered on 09/06/18at 19:30; Start 08/23/18 at 21:00; Stop 09/07/18 at 18:46; Status DC Nicotine (Nicoderm Cq 14mg) 1 patch DAILY TD Last administered on 09/14/18 07: 59; Start 09/06/18 at 09:00 Clozapine (Clozaril) 100 mg QHS PO Last administered on 09/12/18 20:05; Start 09/07/18 at 21:00; Stop 09/13/18 at 18:03; Status DC Clozapine (Clozaril) 75 mg QHS PO Last administered on 09/12/18 20:06; Start at 21:00; Stop 09/13/18 at 18:04; Status DC Simethicone (Gas-X) 80 mg PRN AFTMEALHC PRN PO GAS / BLOATING; Start 09/08/18 at 16:30 Docusate Sodium (Colace) 100 mg BID PO Last administered on 09/14/18at 19:49; Start 09/09/18 at 21:00 Polyethylene Glycol (miraLAX) 17 gm DAILY PO Last administered on 09/14/18at 07: 58; Start 09/10/18 at 09:00 Clozapine (Clozaril) 200 mg QHS PO ; Start 09/13/18 at 21:00; Stop 09/13/18 at 21: 00; Status DC Clozapine (Clozaril) 200 mg QHS PO Last administered on 09/14/18at 19:49; Start 09/13/18 at 21:00 Buspirone HCl (Buspar) 10 mg TID PO Last administered on 09/14/18at 19:50; Start 09/14/18 at 09:00 Active Scripts Active Reported Zyprexa (Olanzapine) 5 Mg Tablet 5 Mg PO BID NICODERM CQ 7mg (Nicotine) 1 Each Patch.td24 1 Patch TD PRN DAILY PRN Trazodone Hcl 50 Mg Tablet 50 Mg PO PRN QHS PRN Risperdal (Risperidone) 1 Mg Tablet 1.5 Mg PO HS Analgesic [place] (Methyl Salicylate/Menthol) 28 Gm Oint...g. 1 Gerri TP PRN QID PRN Milk Of Magnesia (Magnesium Hydroxide) 400 Mg/5 Ml Oral.susp 400 Mg PO PRN DAILY PRN Mag-Al Plus Xs Suspension (Mag Hydrox/Al Hydrox/Simeth) 30 Ml Oral.susp 15 Ml PO PRN AFTMEALHC PRN Buspirone Hcl 10 Mg Tablet 10 Mg PO TID Baclofen 10 Mg Tablet 10 Mg PO QID Gabapentin 100 Mg Capsule 100 Mg PO QID Gabapentin 800 Mg Tablet 800 Mg PO QID Levothyroxine Sodium 50 Mcg Tablet 50 Mcg PO DAILYAC Klonopin (Clonazepam) 0.5 Mg Tablet 1 Mg PO BID Norvasc (Amlodipine Besylate) 10 Mg Tablet 10 Mg PO DAILY Oxybutynin Chloride 5 Mg Tablet 2.5 Mg PO BID Depakote Er (Divalproex Sodium) 500 Mg Tab.er.24h 1,500 Mg PO HS Klor-Con M20 (Potassium Chloride) 20 Meq Tab.er.prt 20 Meq PO DAILY Cymbalta (Duloxetine Hcl) 60 Mg Capsule.dr 60 Mg PO DAILY Multivitamin with Iron Tablet (Multivitamin/Iron/Folic Acid) 1 Each Tablet 1 Tab PO DAILY Flomax (Tamsulosin Hcl) 0.4 Mg Cap.er.24h 0.8 Mg PO DAILY Olanzapine 5 Mg Tablet 2.5 Mg PO PRN Q2HR PRN MDD 10mg/ 24 hrs Remeron (Mirtazapine) 15 Mg Tablet 7.5 Mg PO HS Bisacodyl 10 Mg Supp.rect 10 Mg RC PRN DAILY PRN Tylenol (Acetaminophen) 325 Mg Tablet 650 Mg PO PRN Q6HRS PRN I have reviewed the current psychotropics carefully including drug interactions. Risk benefit ratio favors no change other than as noted in my dictated progress note. Diagnosis: Problems: (1) Depression (2) Schizoaffective disorder (3) Anxiety disorder (4) Impulse control disorder (5) Schizophrenia, paranoid, chronic with acute exacerbation CATHY EMERY MD Sep 14, 2018 22:50
--- NOTE | 2018-09-15 05:02 | PN ---
DATE: 09/13/2018 PSYCHIATRIC PROGRESS NOTE This late entry 09/13/2017, covers elements not covered in my initial note. SUBJECTIVE: I met with the patient in the evening. The patient slept 6-1/2 hours previous night. He remained somewhat withdrawn, but appropriate. No clear hallucinations, suicidal or homicidal ideation. REVIEW OF SYSTEMS: Ambulation is impaired with walker. No CV, , pulmonary, eye, ENT system symptoms on review. I met with him at some length in his room. MENTAL STATUS EXAM: Oriented to himself and situation. Speech, moderate latency. Abstraction fair, computation impaired, language function intact, attention span short. Mood and affect somewhat withdrawn, but psychotic symptoms are much improved on the Clozaril. LABORATORY DATA: Absolute neutrophil count is [id number]. IMPRESSION: Unchanged from initial note. PLAN: Increase Clozaril from 175 mg to 200 mg at bedtime. Continue rest unchanged. MAN Ty EMERY MD DR: SARINA/nilda JOB#: [id number] / [id number]
[2018-09-15] MEDS: LEVOTHYROXINE 50 MCG TABLET PO SCH (05:50)
[2018-09-15 05:52] VITALS: BP 115/78
[2018-09-15] MEDS: POLYETHYLENE GLYCOL 3350 17 GM PACKET. PO SCH (07:50)
[2018-09-15] MEDS: OXYBUTYNIN CHLORIDE 5 MG TABLET PO SCH ×2 (07:51→19:20)
[2018-09-15] MEDS: NICOTINE 14MG PATCH. TD SCH (07:51)
[2018-09-15] MEDS: MULTIVITAMIN with MINERAL TABLET. PO SCH (07:51)
[2018-09-15] MEDS: busPIRone 5 MG TABLET. PO SCH ×3 (07:51→19:16)
[2018-09-15] MEDS: DOCUSATE SODIUM 100 MG CAPSULE PO SCH ×2 (07:52→19:16)
[2018-09-15] MEDS: POTASSIUM CHLORIDE 20 MEQ TABLET.ER. PO SCH (07:52)
[2018-09-15] MEDS: TAMSULOSIN 0.4 MG CAP.ER.24H. PO SCH (07:52)
[2018-09-15] MEDS: amLODIPine BESYLATE 10 MG TABLET PO SCH (07:53)
[2018-09-15] MEDS: clonazePAM 0.5 MG TABLET PO SCH ×2 (07:54→19:20)
[2018-09-15] MEDS: GABAPENTIN 300 MG CAPSULE. PO SCH ×4 (07:54→19:20)
[2018-09-15] MEDS: CHOLECALCIFEROL (VITAMIN D3) 50,000 UNIT CAPSULE PO SCH (07:54)
[2018-09-15 16:04] VITALS: BP 132/87
[2018-09-15] MEDS: cloZAPine 100 MG TABLET PO SCH (19:16)
[2018-09-15] MEDS: DIVALPROEX ER 500 MG TAB.ER.24H PO SCH (19:17)
--- NOTE | 2018-09-15 22:49 | PDOC ---
Exam Note: Nguyễn Note: Please also refer to the separate dictated note~for this date of service dictated separately.~Patient seen individually. Discussed the patient with Nursing staff reviewed the chart.~Reviewed interim history and current functioning. Reviewed vital signs,~Labs/ Radiology~and current medications noted below. Continue current treatment with the changes noted in the dictated addendum note Assessment: Vital Signs: Vital Signs Date Time Temp Pulse Resp B/P (MAP) Pulse Ox O2 Delivery O2 Flow Rate FiO2 09/15/18 16:04 97.5 90 18 132/87 (102) 98 09/12/18 16:09 Room Air I&O Intake and Output 09/15/18 07:01 Intake Total 1320 ml Balance 1320 ml Intake Oral 1320 ml # Voids 1 Current Medications: Meds: Current Medications Acetaminophen (Tylenol) 650 mg PRN Q6HRS PRN PO PAIN / TEMP Last administered on 09/09/18 10:13; Start 06/21/18 at 20:15 Clonazepam (KlonoPIN) 1 mg BID PO Last administered on 08/14/18 19:19; Start 06/21/18 at 21:00; Stop 08/14/18 at 21:25; Status DC Gabapentin (Neurontin) 900 mg QID PO Last administered on 07/08/18 16:58; Start 06/21/18 at 21:00; Stop 07/08/18 at 17:47; Status DC Al Hydroxide/Mg Hydroxide (Mylanta Plus Xs) 15 ml PRN AFTMEALHC PRN PO GI SYMPTOMS Last administered on 08/22/18 09:18; Start 06/21/18 at 20:15 Magnesium Hydroxide (Milk Of Magnesia) 400 mg PRN DAILY PRN PO CONSTIPATION Last administered on 09/09/18 14:28; Start 06/21/18 at 20:15 Multi-Ingredient Ointment (Analgesic [place]) 1 gerri PRN QID PRN TP MUSCLE PAIN Last administered on 09/04/18 06:17; Start 06/21/18 at 20:15 Oxybutynin Chloride (Ditropan) 2.5 mg BID PO Last administered on 09/15/18 19: 20; Start 06/21/18 at 21:00 Potassium Chloride (Klor-Con) 20 meq DAILY PO Last administered on 09/15/18 07: 52; Start 06/22/18 at 09:00 Tamsulosin HCl (Flomax) 0.8 mg DAILY PO Last administered on 09/15/18 07:52; Start 06/22/18 at 09:00 Amlodipine Besylate (Norvasc) 10 mg DAILY PO Last administered on 09/15/18 07: 53; Start 06/22/18 at 09:00 Baclofen (Lioresal) 10 mg QID PO Last administered on 07/07/18 19:36; Start 06/21/18 at 21:00; Stop 07/08/18 at 11:48; Status DC Bisacodyl (Dulcolax Supp) 10 mg PRN DAILY PRN [place] CONSTIPATION; Start 06/21/18 at 20:45 Buspirone HCl (Buspar) 10 mg TID PO Last administered on 09/13/18 20:51; Start 06/21/18 at 21:00; Stop 09/14/18 at 08:04; Status DC Divalproex Sodium (Depakote Er) 1,500 mg HS PO Last administered on 09/15/18 19 :17; Start 06/21/18 at 21:00 Non-Formulary Medication (Gabapentin ) 800 mg QID PO ; Start 06/21/18 at 21:00 ; Status UNV Levothyroxine Sodium (Synthroid) 50 mcg DAILY06 PO Last administered on 05:50; Start 06/22/18 at 06:00 Multivitamins/ Calcium (Thera-M Plus) 1 tab DAILY PO Last administered on 07:51; Start 06/22/18 at 09:00 Olanzapine (ZyPREXA ZYDIS) 2.5 mg PRN Q2HR PRN PO PSYCHOSIS Last administered on 08/10/18 20:19; Start 06/21/18 at 20:45 Olanzapine (ZyPREXA) 5 mg BID PO Last administered on 06/23/18 08:47; Start 06/21/18 at 21:00; Stop 06/23/18 at 17:06; Status DC Risperidone (RisperDAL) 1.5 mg HS PO Last administered on 06/23/18 19:45; Start 06/21/18 at 21:00; Stop 06/24/18 at 11:06; Status DC Trazodone HCl (Desyrel) 50 mg PRN QHS PRN PO INSOMNIA Last administered on at 20:19; Start 06/21/18 at 21:00; Stop 08/10/18 at 21:07; Status DC Nicotine (Nicoderm Cq 7mg) 1 patch PRN DAILY PRN TD SMOKING CESSATION; Start 06/21/18 at 23:30; Stop 07/09/18 at 05:39; Status DC Vitamin D (Vitamin D3) 50,000 unit WEEKLY PO Last administered on 09/15/18at 07: 54; Start 06/23/18 at 16:30 Olanzapine (ZyPREXA) 5 mg DAILY PO Last administered on 06/25/18at 08:04; Start 06/24/18 at 09:00; Stop 06/26/18 at 00:00; Status DC Risperidone (RisperDAL) 1.75 mg HS PO Last administered on 07/06/18at 20:08; Start 06/24/18 at 21:00; Stop 07/07/18 at 12:40; Status DC Risperidone (RisperDAL) 2 mg HS PO Last administered on 08/10/18at 20:15; Start 07/07/18 at 21:00; Stop 08/10/18 at 21:07; Status DC Gabapentin (Neurontin) 600 mg QID PO Last administered on 09/15/18at 19:20; Start 07/08/18 at 21:00 Nicotine (Nicoderm Cq 21mg) 1 patch DAILY TD Last administered on 07/30/18at 08 :54; Start 07/09/18 at 09:00; Stop 07/31/18 at 04:33; Status DC Clozapine (Clozaril) 25 mg DAILY PO Last administered on 07/27/18at 09:38; Start 07/13/18 at 09:00; Stop 07/27/18 at 16:52; Status DC Vitamin D (Vitamin D3) 50,000 unit WEEKLY PO ; Start 07/24/18 at 09:00; Status Cancel Clozapine (Clozaril) 50 mg DAILY PO Last administered on 08/03/18at 07:51; Start 07/28/18 at 09:00; Stop 08/03/18 at 21:09; Status DC Nicotine (Nicoderm Cq 21mg) 1 patch PRN DAILY PRN TD SMOKING CESSATION Last administered on 08/20/18 09:30; Start 07/31/18 at 04:45; Stop 08/21/18 at 10: 24; Status DC Clozapine (Clozaril) 75 mg HS PO Last administered on 08/08/18 19:36; Start 08/04/18 at 21:00; Stop 08/09/18 at 17:33; Status DC Clozapine (Clozaril) 25 mg 1X ONCE PO Last administered on 08/03/18 21:25; Start 08/03/18 at 21:30; Stop 08/03/18 at 21:31; Status DC Clozapine (Clozaril) 100 mg QHS PO Last administered on 08/15/18 20:03; Start 08/09/18 at 21:00; Stop 08/16/18 at 16:48; Status DC Risperidone (RisperDAL) 1.5 mg HS PO Last administered on 08/16/18 19:21; Start 08/11/18 at 21:00; Stop 08/17/18 at 16:27; Status DC Trazodone HCl (Desyrel) 50 mg QHS PO ; Start 08/11/18 at 21:00; Stop 08/11/18 at 21:00; Status DC Ondansetron HCl (Zofran Odt) 4 mg PRN Q8HRS PRN PO NAUSEA/VOMITING Last administered on 08/12/18 11:11; Start 08/12/18 at 10:45; Stop 08/12/18 at 16:29; Status DC Ondansetron HCl (Zofran Odt) 4 mg PRN Q4HRS PRN PO NAUSEA/VOMITING Last administered on 08/13/18 08:20; Start 08/12/18 at 16:30 Clonazepam (KlonoPIN) 0.75 mg DAILY PO Last administered on 09/15/18 07:54; Start 08/15/18 at 09:00 Clonazepam (KlonoPIN) 1 mg HS PO Last administered on 08/16/18 19:26; Start 08/15/18 at 21:00; Stop 08/16/18 at 21:00; Status DC Clonazepam (KlonoPIN) 0.75 mg HS PO Last administered on 2/6/19at 19:20; Start 08/17/18 at 21:00 Clozapine (Clozaril) 125 mg QHS PO Last administered on 08/22/18 19:46; Start 08/16/18 at 21:00; Stop 08/23/18 at 16:56; Status DC Iohexol (Omnipaque 300 Mg/ml) 75 ml 1X ONCE IV ; Start 08/16/18 at 18:15; Stop 08/16/18 at 18:16; Status DC Iohexol (Omnipaque 300 Mg/ml) 75 ml 1X ONCE IV Last administered on 08/17/18at 09:12; Start 08/17/18 at 08:00; Stop 08/17/18 at 08:01; Status DC Iohexol (Omnipaque 300 Mg/ml) 75 ml 1X ONCE IV ; Start 08/17/18 at 09:00; Stop 08/17/18 at 09:02; Status DC Risperidone (RisperDAL) 1 mg QHS PO Last administered on 08/22/18 19:46; Start 08/17/18 at 21:00; Stop 08/23/18 at 16:56; Status DC Nicotine (Nicoderm Cq 21mg) 1 patch DAILY TD Last administered on 09/05/18 08: 03; Start 08/21/18 at 10:30; Stop 09/06/18 at 02:22; Status DC Clozapine (Clozaril) 150 mg QHS PO Last administered on 09/06/18 19:30; Start 08/23/18 at 21:00; Stop 09/07/18 at 18:46; Status DC Risperidone (RisperDAL) 0.5 mg HS PO Last administered on 09/06/18 19:30; Start 08/23/18 at 21:00; Stop 09/07/18 at 18:46; Status DC Nicotine (Nicoderm Cq 14mg) 1 patch DAILY TD Last administered on 09/15/18 07: 51; Start 09/06/18 at 09:00 Clozapine (Clozaril) 100 mg QHS PO Last administered on 09/12/18 20:05; Start 09/07/18 at 21:00; Stop 09/13/18 at 18:03; Status DC Clozapine (Clozaril) 75 mg QHS PO Last administered on 09/12/18 20:06; Start at 21:00; Stop 09/13/18 at 18:04; Status DC Simethicone (Gas-X) 80 mg PRN AFTMEALHC PRN PO GAS / BLOATING; Start 09/08/18 at 16:30 Docusate Sodium (Colace) 100 mg BID PO Last administered on 09/15/18at 19:16; Start 09/09/18 at 21:00 Polyethylene Glycol (miraLAX) 17 gm DAILY PO Last administered on 09/15/18at 07: 50; Start 09/10/18 at 09:00 Clozapine (Clozaril) 200 mg QHS PO ; Start 09/13/18 at 21:00; Stop 09/13/18 at 21: 00; Status DC Clozapine (Clozaril) 200 mg QHS PO Last administered on 09/15/18at 19:16; Start 09/13/18 at 21:00 Buspirone HCl (Buspar) 10 mg TID PO Last administered on 09/15/18at 19:16; Start 09/14/18 at 09:00 Active Scripts Active Reported Zyprexa (Olanzapine) 5 Mg Tablet 5 Mg PO BID NICODERM CQ 7mg (Nicotine) 1 Each Patch.td24 1 Patch TD PRN DAILY PRN Trazodone Hcl 50 Mg Tablet 50 Mg PO PRN QHS PRN Risperdal (Risperidone) 1 Mg Tablet 1.5 Mg PO HS Analgesic [place] (Methyl Salicylate/Menthol) 28 Gm Oint...g. 1 Gerri TP PRN QID PRN Milk Of Magnesia (Magnesium Hydroxide) 400 Mg/5 Ml Oral.susp 400 Mg PO PRN DAILY PRN Mag-Al Plus Xs Suspension (Mag Hydrox/Al Hydrox/Simeth) 30 Ml Oral.susp 15 Ml PO PRN AFTMEALHC PRN Buspirone Hcl 10 Mg Tablet 10 Mg PO TID Baclofen 10 Mg Tablet 10 Mg PO QID Gabapentin 100 Mg Capsule 100 Mg PO QID Gabapentin 800 Mg Tablet 800 Mg PO QID Levothyroxine Sodium 50 Mcg Tablet 50 Mcg PO DAILYAC Klonopin (Clonazepam) 0.5 Mg Tablet 1 Mg PO BID Norvasc (Amlodipine Besylate) 10 Mg Tablet 10 Mg PO DAILY Oxybutynin Chloride 5 Mg Tablet 2.5 Mg PO BID Depakote Er (Divalproex Sodium) 500 Mg Tab.er.24h 1,500 Mg PO HS Klor-Con M20 (Potassium Chloride) 20 Meq Tab.er.prt 20 Meq PO DAILY Cymbalta (Duloxetine Hcl) 60 Mg Capsule.dr 60 Mg PO DAILY Multivitamin with Iron Tablet (Multivitamin/Iron/Folic Acid) 1 Each Tablet 1 Tab PO DAILY Flomax (Tamsulosin Hcl) 0.4 Mg Cap.er.24h 0.8 Mg PO DAILY Olanzapine 5 Mg Tablet 2.5 Mg PO PRN Q2HR PRN MDD 10mg/ 24 hrs Remeron (Mirtazapine) 15 Mg Tablet 7.5 Mg PO HS Bisacodyl 10 Mg Supp.rect 10 Mg RC PRN DAILY PRN Tylenol (Acetaminophen) 325 Mg Tablet 650 Mg PO PRN Q6HRS PRN I have reviewed the current psychotropics carefully including drug interactions. Risk benefit ratio favors no change other than as noted in my dictated progress note. Diagnosis: Problems: (1) Depression (2) Schizoaffective disorder (3) Anxiety disorder (4) Impulse control disorder (5) Schizophrenia, paranoid, chronic with acute exacerbation CATHY EMERY MD Sep 15, 2018 22:49
--- NOTE | 2018-09-16 01:52 | PN ---
DATE: 09/14/2018 This late entry for 09/14/2018 covers elements not covered in my initial note. SUBJECTIVE: I met with the patient at some length in his room in the evening. The patient slept 9 hours previous night. He is compliant with medications, somewhat withdrawn, but psychotic symptoms are much better. He is compliant with his medications. REVIEW OF SYSTEMS: Ambulation impaired with walker. No CV, , pulmonary, eye system symptoms on review. MENTAL STATUS EXAM: Oriented to himself and situation. Speech coherent, abstraction fair, computation impaired, language function intact, attention span short. Mood and affect, sometimes withdrawn. LABORATORY DATA: Reviewed. IMPRESSION: Unchanged from initial note. PLAN: No change from initial note. MAN Ty EMERY MD DR: SARINA/nilda JOB#: [id number] / [id number]
[2018-09-16] MEDS: LEVOTHYROXINE 50 MCG TABLET PO SCH (05:41)
[2018-09-16 06:40] VITALS: BP 131/89
[2018-09-16] MEDS: DOCUSATE SODIUM 100 MG CAPSULE PO SCH ×2 (07:37→19:04)
[2018-09-16] MEDS: busPIRone 5 MG TABLET. PO SCH ×3 (07:37→19:04)
[2018-09-16] MEDS: TAMSULOSIN 0.4 MG CAP.ER.24H. PO SCH (07:38)
[2018-09-16] MEDS: clonazePAM 0.5 MG TABLET PO SCH ×2 (07:38→19:09)
[2018-09-16] MEDS: POTASSIUM CHLORIDE 20 MEQ TABLET.ER. PO SCH (07:38)
[2018-09-16] MEDS: OXYBUTYNIN CHLORIDE 5 MG TABLET PO SCH ×2 (07:38→19:04)
[2018-09-16] MEDS: POLYETHYLENE GLYCOL 3350 17 GM PACKET. PO SCH (07:39)
[2018-09-16] MEDS: GABAPENTIN 300 MG CAPSULE. PO SCH ×4 (07:39→19:04)
[2018-09-16] MEDS: amLODIPine BESYLATE 10 MG TABLET PO SCH (07:40)
[2018-09-16] MEDS: MULTIVITAMIN with MINERAL TABLET. PO SCH (07:41)
[2018-09-16] MEDS: NICOTINE 14MG PATCH. TD SCH (07:42)
[2018-09-16 16:56] VITALS: BP 135/88
[2018-09-16] MEDS: cloZAPine 100 MG TABLET PO SCH (19:04)
[2018-09-16] MEDS: DIVALPROEX ER 500 MG TAB.ER.24H PO SCH (19:08)
--- NOTE | 2018-09-16 22:27 | PDOC ---
Exam Note: Nguyễn Note: Please also refer to the separate dictated note~for this date of service dictated separately.~Patient seen individually. Discussed the patient with Nursing staff reviewed the chart.~Reviewed interim history and current functioning. Reviewed vital signs,~Labs/ Radiology~and current medications noted below. Continue current treatment with the changes noted in the dictated addendum note Assessment: Vital Signs: Vital Signs Date Time Temp Pulse Resp B/P (MAP) Pulse Ox O2 Delivery O2 Flow Rate FiO2 09/16/18 16:56 97.6 93 18 135/88 (104) 96 09/12/18 16:09 Room Air I&O Intake and Output 09/16/18 07:01 Intake Total 1320 ml Balance 1320 ml Intake Oral 1320 ml # Voids 1 Current Medications: Meds: Current Medications Acetaminophen (Tylenol) 650 mg PRN Q6HRS PRN PO PAIN / TEMP Last administered on 09/09/18 10:13; Start 06/21/18 at 20:15 Clonazepam (KlonoPIN) 1 mg BID PO Last administered on 08/14/18 19:19; Start 06/21/18 at 21:00; Stop 08/14/18 at 21:25; Status DC Gabapentin (Neurontin) 900 mg QID PO Last administered on 07/08/18 16:58; Start 06/21/18 at 21:00; Stop 07/08/18 at 17:47; Status DC Al Hydroxide/Mg Hydroxide (Mylanta Plus Xs) 15 ml PRN AFTMEALHC PRN PO GI SYMPTOMS Last administered on 08/22/18 09:18; Start 06/21/18 at 20:15 Magnesium Hydroxide (Milk Of Magnesia) 400 mg PRN DAILY PRN PO CONSTIPATION Last administered on 09/09/18 14:28; Start 06/21/18 at 20:15 Multi-Ingredient Ointment (Analgesic [place]) 1 gerri PRN QID PRN TP MUSCLE PAIN Last administered on 09/04/18 06:17; Start 06/21/18 at 20:15 Oxybutynin Chloride (Ditropan) 2.5 mg BID PO Last administered on 09/16/18 19: 04; Start 06/21/18 at 21:00 Potassium Chloride (Klor-Con) 20 meq DAILY PO Last administered on 09/16/18 07: 38; Start 06/22/18 at 09:00 Tamsulosin HCl (Flomax) 0.8 mg DAILY PO Last administered on 09/16/18 07:38; Start 06/22/18 at 09:00 Amlodipine Besylate (Norvasc) 10 mg DAILY PO Last administered on 09/16/18 07: 40; Start 06/22/18 at 09:00 Baclofen (Lioresal) 10 mg QID PO Last administered on 07/07/18 19:36; Start 06/21/18 at 21:00; Stop 07/08/18 at 11:48; Status DC Bisacodyl (Dulcolax Supp) 10 mg PRN DAILY PRN [place] CONSTIPATION; Start 06/21/18 at 20:45 Buspirone HCl (Buspar) 10 mg TID PO Last administered on 09/13/18 20:51; Start 06/21/18 at 21:00; Stop 09/14/18 at 08:04; Status DC Divalproex Sodium (Depakote Er) 1,500 mg HS PO Last administered on 09/16/18 19 :08; Start 06/21/18 at 21:00 Non-Formulary Medication (Gabapentin ) 800 mg QID PO ; Start 06/21/18 at 21:00 ; Status UNV Levothyroxine Sodium (Synthroid) 50 mcg DAILY06 PO Last administered on 05:41; Start 06/22/18 at 06:00 Multivitamins/ Calcium (Thera-M Plus) 1 tab DAILY PO Last administered on 07:41; Start 06/22/18 at 09:00 Olanzapine (ZyPREXA ZYDIS) 2.5 mg PRN Q2HR PRN PO PSYCHOSIS Last administered on 08/10/18 20:19; Start 06/21/18 at 20:45 Olanzapine (ZyPREXA) 5 mg BID PO Last administered on 06/23/18 08:47; Start 06/21/18 at 21:00; Stop 06/23/18 at 17:06; Status DC Risperidone (RisperDAL) 1.5 mg HS PO Last administered on 06/23/18 19:45; Start 06/21/18 at 21:00; Stop 06/24/18 at 11:06; Status DC Trazodone HCl (Desyrel) 50 mg PRN QHS PRN PO INSOMNIA Last administered on at 20:19; Start 06/21/18 at 21:00; Stop 08/10/18 at 21:07; Status DC Nicotine (Nicoderm Cq 7mg) 1 patch PRN DAILY PRN TD SMOKING CESSATION; Start 06/21/18 at 23:30; Stop 07/09/18 at 05:39; Status DC Vitamin D (Vitamin D3) 50,000 unit WEEKLY PO Last administered on 09/15/18at 07: 54; Start 06/23/18 at 16:30 Olanzapine (ZyPREXA) 5 mg DAILY PO Last administered on 06/25/18at 08:04; Start 06/24/18 at 09:00; Stop 06/26/18 at 00:00; Status DC Risperidone (RisperDAL) 1.75 mg HS PO Last administered on 07/06/18at 20:08; Start 06/24/18 at 21:00; Stop 07/07/18 at 12:40; Status DC Risperidone (RisperDAL) 2 mg HS PO Last administered on 08/10/18at 20:15; Start 07/07/18 at 21:00; Stop 08/10/18 at 21:07; Status DC Gabapentin (Neurontin) 600 mg QID PO Last administered on 09/16/18at 19:04; Start 07/08/18 at 21:00 Nicotine (Nicoderm Cq 21mg) 1 patch DAILY TD Last administered on 07/30/18at 08 :54; Start 07/09/18 at 09:00; Stop 07/31/18 at 04:33; Status DC Clozapine (Clozaril) 25 mg DAILY PO Last administered on 07/27/18at 09:38; Start 07/13/18 at 09:00; Stop 07/27/18 at 16:52; Status DC Vitamin D (Vitamin D3) 50,000 unit WEEKLY PO ; Start 07/24/18 at 09:00; Status Cancel Clozapine (Clozaril) 50 mg DAILY PO Last administered on 08/03/18at 07:51; Start 07/28/18 at 09:00; Stop 08/03/18 at 21:09; Status DC Nicotine (Nicoderm Cq 21mg) 1 patch PRN DAILY PRN TD SMOKING CESSATION Last administered on 08/20/18 09:30; Start 07/31/18 at 04:45; Stop 08/21/18 at 10: 24; Status DC Clozapine (Clozaril) 75 mg HS PO Last administered on 08/08/18 19:36; Start 08/04/18 at 21:00; Stop 08/09/18 at 17:33; Status DC Clozapine (Clozaril) 25 mg 1X ONCE PO Last administered on 08/03/18 21:25; Start 08/03/18 at 21:30; Stop 08/03/18 at 21:31; Status DC Clozapine (Clozaril) 100 mg QHS PO Last administered on 08/15/18 20:03; Start 08/09/18 at 21:00; Stop 08/16/18 at 16:48; Status DC Risperidone (RisperDAL) 1.5 mg HS PO Last administered on 08/16/18 19:21; Start 08/11/18 at 21:00; Stop 08/17/18 at 16:27; Status DC Trazodone HCl (Desyrel) 50 mg QHS PO ; Start 08/11/18 at 21:00; Stop 08/11/18 at 21:00; Status DC Ondansetron HCl (Zofran Odt) 4 mg PRN Q8HRS PRN PO NAUSEA/VOMITING Last administered on 08/12/18 11:11; Start 08/12/18 at 10:45; Stop 08/12/18 at 16:29; Status DC Ondansetron HCl (Zofran Odt) 4 mg PRN Q4HRS PRN PO NAUSEA/VOMITING Last administered on 08/13/18 08:20; Start 08/12/18 at 16:30 Clonazepam (KlonoPIN) 0.75 mg DAILY PO Last administered on 09/16/18 07:38; Start 08/15/18 at 09:00 Clonazepam (KlonoPIN) 1 mg HS PO Last administered on 08/16/18 19:26; Start 08/15/18 at 21:00; Stop 08/16/18 at 21:00; Status DC Clonazepam (KlonoPIN) 0.75 mg HS PO Last administered on 2/7/19at 19:09; Start 08/17/18 at 21:00 Clozapine (Clozaril) 125 mg QHS PO Last administered on 08/22/18 19:46; Start 08/16/18 at 21:00; Stop 08/23/18 at 16:56; Status DC Iohexol (Omnipaque 300 Mg/ml) 75 ml 1X ONCE IV ; Start 08/16/18 at 18:15; Stop 08/16/18 at 18:16; Status DC Iohexol (Omnipaque 300 Mg/ml) 75 ml 1X ONCE IV Last administered on 08/17/18at 09:12; Start 08/17/18 at 08:00; Stop 08/17/18 at 08:01; Status DC Iohexol (Omnipaque 300 Mg/ml) 75 ml 1X ONCE IV ; Start 08/17/18 at 09:00; Stop 08/17/18 at 09:02; Status DC Risperidone (RisperDAL) 1 mg QHS PO Last administered on 08/22/18 19:46; Start 08/17/18 at 21:00; Stop 08/23/18 at 16:56; Status DC Nicotine (Nicoderm Cq 21mg) 1 patch DAILY TD Last administered on 09/05/18 08: 03; Start 08/21/18 at 10:30; Stop 09/06/18 at 02:22; Status DC Clozapine (Clozaril) 150 mg QHS PO Last administered on 09/06/18 19:30; Start 08/23/18 at 21:00; Stop 09/07/18 at 18:46; Status DC Risperidone (RisperDAL) 0.5 mg HS PO Last administered on 09/06/18 19:30; Start 08/23/18 at 21:00; Stop 09/07/18 at 18:46; Status DC Nicotine (Nicoderm Cq 14mg) 1 patch DAILY TD Last administered on 09/16/18 07: 42; Start 09/06/18 at 09:00 Clozapine (Clozaril) 100 mg QHS PO Last administered on 09/12/18 20:05; Start 09/07/18 at 21:00; Stop 09/13/18 at 18:03; Status DC Clozapine (Clozaril) 75 mg QHS PO Last administered on 09/12/18 20:06; Start at 21:00; Stop 09/13/18 at 18:04; Status DC Simethicone (Gas-X) 80 mg PRN AFTMEALHC PRN PO GAS / BLOATING; Start 09/08/18 at 16:30 Docusate Sodium (Colace) 100 mg BID PO Last administered on 09/16/18 19:04; Start 09/09/18 at 21:00 Polyethylene Glycol (miraLAX) 17 gm DAILY PO Last administered on 09/16/18at 07: 39; Start 09/10/18 at 09:00 Clozapine (Clozaril) 200 mg QHS PO ; Start 09/13/18 at 21:00; Stop 09/13/18 at 21: 00; Status DC Clozapine (Clozaril) 200 mg QHS PO Last administered on 09/16/18 19:04; Start 09/13/18 at 21:00 Buspirone HCl (Buspar) 10 mg TID PO Last administered on 09/16/18 19:04; Start 09/14/18 at 09:00 Active Scripts Active Reported Zyprexa (Olanzapine) 5 Mg Tablet 5 Mg PO BID NICODERM CQ 7mg (Nicotine) 1 Each Patch.td24 1 Patch TD PRN DAILY PRN Trazodone Hcl 50 Mg Tablet 50 Mg PO PRN QHS PRN Risperdal (Risperidone) 1 Mg Tablet 1.5 Mg PO HS Analgesic [place] (Methyl Salicylate/Menthol) 28 Gm Oint...g. 1 Gerri TP PRN QID PRN Milk Of Magnesia (Magnesium Hydroxide) 400 Mg/5 Ml Oral.susp 400 Mg PO PRN DAILY PRN Mag-Al Plus Xs Suspension (Mag Hydrox/Al Hydrox/Simeth) 30 Ml Oral.susp 15 Ml PO PRN AFTMEALHC PRN Buspirone Hcl 10 Mg Tablet 10 Mg PO TID Baclofen 10 Mg Tablet 10 Mg PO QID Gabapentin 100 Mg Capsule 100 Mg PO QID Gabapentin 800 Mg Tablet 800 Mg PO QID Levothyroxine Sodium 50 Mcg Tablet 50 Mcg PO DAILYAC Klonopin (Clonazepam) 0.5 Mg Tablet 1 Mg PO BID Norvasc (Amlodipine Besylate) 10 Mg Tablet 10 Mg PO DAILY Oxybutynin Chloride 5 Mg Tablet 2.5 Mg PO BID Depakote Er (Divalproex Sodium) 500 Mg Tab.er.24h 1,500 Mg PO HS Klor-Con M20 (Potassium Chloride) 20 Meq Tab.er.prt 20 Meq PO DAILY Cymbalta (Duloxetine Hcl) 60 Mg Capsule.dr 60 Mg PO DAILY Multivitamin with Iron Tablet (Multivitamin/Iron/Folic Acid) 1 Each Tablet 1 Tab PO DAILY Flomax (Tamsulosin Hcl) 0.4 Mg Cap.er.24h 0.8 Mg PO DAILY Olanzapine 5 Mg Tablet 2.5 Mg PO PRN Q2HR PRN MDD 10mg/ 24 hrs Remeron (Mirtazapine) 15 Mg Tablet 7.5 Mg PO HS Bisacodyl 10 Mg Supp.rect 10 Mg RC PRN DAILY PRN Tylenol (Acetaminophen) 325 Mg Tablet 650 Mg PO PRN Q6HRS PRN I have reviewed the current psychotropics carefully including drug interactions. Risk benefit ratio favors no change other than as noted in my dictated progress note. Diagnosis: Problems: (1) Depression (2) Schizoaffective disorder (3) Anxiety disorder (4) Impulse control disorder (5) Schizophrenia, paranoid, chronic with acute exacerbation CATHY EMERY MD Sep 16, 2018 22:27
[2018-09-17 05:54] VITALS: BP 113/75
[2018-09-17] MEDS: LEVOTHYROXINE 50 MCG TABLET PO SCH (06:27)
[2018-09-17] MEDS: busPIRone 5 MG TABLET. PO SCH ×3 (08:30→19:24)
[2018-09-17] MEDS: DOCUSATE SODIUM 100 MG CAPSULE PO SCH ×2 (08:30→19:24)
[2018-09-17] MEDS: OXYBUTYNIN CHLORIDE 5 MG TABLET PO SCH ×2 (08:30→19:26)
[2018-09-17] MEDS: MULTIVITAMIN with MINERAL TABLET. PO SCH (08:30)
[2018-09-17] MEDS: NICOTINE 14MG PATCH. TD SCH (08:30)
[2018-09-17] MEDS: TAMSULOSIN 0.4 MG CAP.ER.24H. PO SCH (08:30)
[2018-09-17] MEDS: amLODIPine BESYLATE 10 MG TABLET PO SCH (08:30)
[2018-09-17] MEDS: POTASSIUM CHLORIDE 20 MEQ TABLET.ER. PO SCH (08:30)
[2018-09-17] MEDS: POLYETHYLENE GLYCOL 3350 17 GM PACKET. PO SCH (08:31)
[2018-09-17] MEDS: clonazePAM 0.5 MG TABLET PO SCH ×2 (08:32→19:29)
[2018-09-17] MEDS: GABAPENTIN 300 MG CAPSULE. PO SCH ×4 (08:33→19:25)
[2018-09-17 16:43] VITALS: BP 97/63
[2018-09-17] MEDS: cloZAPine 100 MG TABLET PO SCH (19:25)
[2018-09-17] MEDS: DIVALPROEX ER 500 MG TAB.ER.24H PO SCH (19:25)
--- NOTE | 2018-09-17 22:38 | PDOC ---
Exam Note: Nguyễn Note: Please also refer to the separate dictated note~for this date of service dictated separately.~Patient seen individually. Discussed the patient with Nursing staff reviewed the chart.~Reviewed interim history and current functioning. Reviewed vital signs,~Labs/ Radiology~and current medications noted below. Continue current treatment with the changes noted in the dictated addendum note Assessment: Vital Signs: Vital Signs Date Time Temp Pulse Resp B/P (MAP) Pulse Ox O2 Delivery O2 Flow Rate FiO2 09/17/18 16:43 97.9 89 16 97/63 (74) 97 Room Air I&O Intake and Output 09/17/18 07:01 Intake Total 1670 ml Balance 1670 ml Intake Oral 1670 ml Current Medications: Meds: Current Medications Acetaminophen (Tylenol) 650 mg PRN Q6HRS PRN PO PAIN / TEMP Last administered on 09/09/18 10:13; Start 06/21/18 at 20:15 Clonazepam (KlonoPIN) 1 mg BID PO Last administered on 08/14/18 19:19; Start 06/21/18 at 21:00; Stop 08/14/18 at 21:25; Status DC Gabapentin (Neurontin) 900 mg QID PO Last administered on 07/08/18at 16:58; Start 06/21/18 at 21:00; Stop 07/08/18 at 17:47; Status DC Al Hydroxide/Mg Hydroxide (Mylanta Plus Xs) 15 ml PRN AFTMEALHC PRN PO GI SYMPTOMS Last administered on 08/22/18 09:18; Start 06/21/18 at 20:15 Magnesium Hydroxide (Milk Of Magnesia) 400 mg PRN DAILY PRN PO CONSTIPATION Last administered on 09/09/18 14:28; Start 06/21/18 at 20:15 Multi-Ingredient Ointment (Analgesic [place]) 1 gerri PRN QID PRN TP MUSCLE PAIN Last administered on 09/04/18 06:17; Start 06/21/18 at 20:15 Oxybutynin Chloride (Ditropan) 2.5 mg BID PO Last administered on 09/17/18 19: 26; Start 06/21/18 at 21:00 Potassium Chloride (Klor-Con) 20 meq DAILY PO Last administered on 09/17/18 08: 30; Start 06/22/18 at 09:00 Tamsulosin HCl (Flomax) 0.8 mg DAILY PO Last administered on 09/17/18 08:30; Start 06/22/18 at 09:00 Amlodipine Besylate (Norvasc) 10 mg DAILY PO Last administered on 09/17/18 08: 30; Start 06/22/18 at 09:00 Baclofen (Lioresal) 10 mg QID PO Last administered on 07/07/18 19:36; Start 06/21/18 at 21:00; Stop 07/08/18 at 11:48; Status DC Bisacodyl (Dulcolax Supp) 10 mg PRN DAILY PRN [place] CONSTIPATION; Start 06/21/18 at 20:45 Buspirone HCl (Buspar) 10 mg TID PO Last administered on 09/13/18 20:51; Start 06/21/18 at 21:00; Stop 09/14/18 at 08:04; Status DC Divalproex Sodium (Depakote Er) 1,500 mg HS PO Last administered on 09/17/18 19 :25; Start 06/21/18 at 21:00 Non-Formulary Medication (Gabapentin ) 800 mg QID PO ; Start 06/21/18 at 21:00 ; Status UNV Levothyroxine Sodium (Synthroid) 50 mcg DAILY06 PO Last administered on 06:27; Start 06/22/18 at 06:00 Multivitamins/ Calcium (Thera-M Plus) 1 tab DAILY PO Last administered on 08:30; Start 06/22/18 at 09:00 Olanzapine (ZyPREXA ZYDIS) 2.5 mg PRN Q2HR PRN PO PSYCHOSIS Last administered on 08/10/18 20:19; Start 06/21/18 at 20:45 Olanzapine (ZyPREXA) 5 mg BID PO Last administered on 06/23/18 08:47; Start 06/21/18 at 21:00; Stop 06/23/18 at 17:06; Status DC Risperidone (RisperDAL) 1.5 mg HS PO Last administered on 06/23/18 19:45; Start 06/21/18 at 21:00; Stop 06/24/18 at 11:06; Status DC Trazodone HCl (Desyrel) 50 mg PRN QHS PRN PO INSOMNIA Last administered on at 20:19; Start 06/21/18 at 21:00; Stop 08/10/18 at 21:07; Status DC Nicotine (Nicoderm Cq 7mg) 1 patch PRN DAILY PRN TD SMOKING CESSATION; Start 06/21/18 at 23:30; Stop 07/09/18 at 05:39; Status DC Vitamin D (Vitamin D3) 50,000 unit WEEKLY PO Last administered on 09/15/18at 07: 54; Start 06/23/18 at 16:30 Olanzapine (ZyPREXA) 5 mg DAILY PO Last administered on 06/25/18at 08:04; Start 06/24/18 at 09:00; Stop 06/26/18 at 00:00; Status DC Risperidone (RisperDAL) 1.75 mg HS PO Last administered on 07/06/18at 20:08; Start 06/24/18 at 21:00; Stop 07/07/18 at 12:40; Status DC Risperidone (RisperDAL) 2 mg HS PO Last administered on 08/10/18at 20:15; Start 07/07/18 at 21:00; Stop 08/10/18 at 21:07; Status DC Gabapentin (Neurontin) 600 mg QID PO Last administered on 09/17/18at 19:25; Start 07/08/18 at 21:00 Nicotine (Nicoderm Cq 21mg) 1 patch DAILY TD Last administered on 07/30/18at 08 :54; Start 07/09/18 at 09:00; Stop 07/31/18 at 04:33; Status DC Clozapine (Clozaril) 25 mg DAILY PO Last administered on 07/27/18at 09:38; Start 07/13/18 at 09:00; Stop 07/27/18 at 16:52; Status DC Vitamin D (Vitamin D3) 50,000 unit WEEKLY PO ; Start 07/24/18 at 09:00; Status Cancel Clozapine (Clozaril) 50 mg DAILY PO Last administered on 08/03/18at 07:51; Start 07/28/18 at 09:00; Stop 08/03/18 at 21:09; Status DC Nicotine (Nicoderm Cq 21mg) 1 patch PRN DAILY PRN TD SMOKING CESSATION Last administered on 08/20/18 09:30; Start 07/31/18 at 04:45; Stop 08/21/18 at 10: 24; Status DC Clozapine (Clozaril) 75 mg HS PO Last administered on 08/08/18at 19:36; Start 08/04/18 at 21:00; Stop 08/09/18 at 17:33; Status DC Clozapine (Clozaril) 25 mg 1X ONCE PO Last administered on 08/03/18at 21:25; Start 08/03/18 at 21:30; Stop 08/03/18 at 21:31; Status DC Clozapine (Clozaril) 100 mg QHS PO Last administered on 08/15/18 20:03; Start 08/09/18 at 21:00; Stop 08/16/18 at 16:48; Status DC Risperidone (RisperDAL) 1.5 mg HS PO Last administered on 08/16/18 19:21; Start 08/11/18 at 21:00; Stop 08/17/18 at 16:27; Status DC Trazodone HCl (Desyrel) 50 mg QHS PO ; Start 08/11/18 at 21:00; Stop 08/11/18 at 21:00; Status DC Ondansetron HCl (Zofran Odt) 4 mg PRN Q8HRS PRN PO NAUSEA/VOMITING Last administered on 08/12/18 11:11; Start 08/12/18 at 10:45; Stop 08/12/18 at 16:29; Status DC Ondansetron HCl (Zofran Odt) 4 mg PRN Q4HRS PRN PO NAUSEA/VOMITING Last administered on 08/13/18 08:20; Start 08/12/18 at 16:30 Clonazepam (KlonoPIN) 0.75 mg DAILY PO Last administered on 09/17/18 08:32; Start 08/15/18 at 09:00; Stop 09/17/18 at 17:12; Status DC Clonazepam (KlonoPIN) 1 mg HS PO Last administered on 08/16/18 19:26; Start 08/15/18 at 21:00; Stop 08/16/18 at 21:00; Status DC Clonazepam (KlonoPIN) 0.75 mg HS PO Last administered on 2/8/19at 19:29; Start 08/17/18 at 21:00 Clozapine (Clozaril) 125 mg QHS PO Last administered on 08/22/18 19:46; Start 08/16/18 at 21:00; Stop 08/23/18 at 16:56; Status DC Iohexol (Omnipaque 300 Mg/ml) 75 ml 1X ONCE IV ; Start 08/16/18 at 18:15; Stop 08/16/18 at 18:16; Status DC Iohexol (Omnipaque 300 Mg/ml) 75 ml 1X ONCE IV Last administered on 08/17/18 09:12; Start 08/17/18 at 08:00; Stop 08/17/18 at 08:01; Status DC Iohexol (Omnipaque 300 Mg/ml) 75 ml 1X ONCE IV ; Start 08/17/18 at 09:00; Stop 08/17/18 at 09:02; Status DC Risperidone (RisperDAL) 1 mg QHS PO Last administered on 08/22/18 19:46; Start 08/17/18 at 21:00; Stop 08/23/18 at 16:56; Status DC Nicotine (Nicoderm Cq 21mg) 1 patch DAILY TD Last administered on 09/05/18 08: 03; Start 08/21/18 at 10:30; Stop 09/06/18 at 02:22; Status DC Clozapine (Clozaril) 150 mg QHS PO Last administered on 09/06/18 19:30; Start 08/23/18 at 21:00; Stop 09/07/18 at 18:46; Status DC Risperidone (RisperDAL) 0.5 mg HS PO Last administered on 09/06/18 19:30; Start 08/23/18 at 21:00; Stop 09/07/18 at 18:46; Status DC Nicotine (Nicoderm Cq 14mg) 1 patch DAILY TD Last administered on 09/17/18 08: 30; Start 09/06/18 at 09:00 Clozapine (Clozaril) 100 mg QHS PO Last administered on 09/12/18 20:05; Start 09/07/18 at 21:00; Stop 09/13/18 at 18:03; Status DC Clozapine (Clozaril) 75 mg QHS PO Last administered on 2/3/19at 20:06; Start at 21:00; Stop 09/13/18 at 18:04; Status DC Simethicone (Gas-X) 80 mg PRN AFTMEALHC PRN PO GAS / BLOATING; Start 09/08/18 at 16:30 Docusate Sodium (Colace) 100 mg BID PO Last administered on 09/17/18 19:24; Start 09/09/18 at 21:00 Polyethylene Glycol (miraLAX) 17 gm DAILY PO Last administered on 09/17/18at 08: 31; Start 09/10/18 at 09:00 Clozapine (Clozaril) 200 mg QHS PO ; Start 09/13/18 at 21:00; Stop 09/13/18 at 21: 00; Status DC Clozapine (Clozaril) 200 mg QHS PO Last administered on 09/17/18at 19:25; Start 09/13/18 at 21:00 Buspirone HCl (Buspar) 10 mg TID PO Last administered on 09/17/18 19:24; Start 09/14/18 at 09:00 Clonazepam (KlonoPIN) 0.5 mg DAILY PO ; Start 09/18/18 at 09:00 Active Scripts Active Reported Zyprexa (Olanzapine) 5 Mg Tablet 5 Mg PO BID NICODERM CQ 7mg (Nicotine) 1 Each Patch.td24 1 Patch TD PRN DAILY PRN Trazodone Hcl 50 Mg Tablet 50 Mg PO PRN QHS PRN Risperdal (Risperidone) 1 Mg Tablet 1.5 Mg PO HS Analgesic [place] (Methyl Salicylate/Menthol) 28 Gm Oint...g. 1 Gerri TP PRN QID PRN Milk Of Magnesia (Magnesium Hydroxide) 400 Mg/5 Ml Oral.susp 400 Mg PO PRN DAILY PRN Mag-Al Plus Xs Suspension (Mag Hydrox/Al Hydrox/Simeth) 30 Ml Oral.susp 15 Ml PO PRN AFTMEALHC PRN Buspirone Hcl 10 Mg Tablet 10 Mg PO TID Baclofen 10 Mg Tablet 10 Mg PO QID Gabapentin 100 Mg Capsule 100 Mg PO QID Gabapentin 800 Mg Tablet 800 Mg PO QID Levothyroxine Sodium 50 Mcg Tablet 50 Mcg PO DAILYAC Klonopin (Clonazepam) 0.5 Mg Tablet 1 Mg PO BID Norvasc (Amlodipine Besylate) 10 Mg Tablet 10 Mg PO DAILY Oxybutynin Chloride 5 Mg Tablet 2.5 Mg PO BID Depakote Er (Divalproex Sodium) 500 Mg Tab.er.24h 1,500 Mg PO HS Klor-Con M20 (Potassium Chloride) 20 Meq Tab.er.prt 20 Meq PO DAILY Cymbalta (Duloxetine Hcl) 60 Mg Capsule.dr 60 Mg PO DAILY Multivitamin with Iron Tablet (Multivitamin/Iron/Folic Acid) 1 Each Tablet 1 Tab PO DAILY Flomax (Tamsulosin Hcl) 0.4 Mg Cap.er.24h 0.8 Mg PO DAILY Olanzapine 5 Mg Tablet 2.5 Mg PO PRN Q2HR PRN MDD 10mg/ 24 hrs Remeron (Mirtazapine) 15 Mg Tablet 7.5 Mg PO HS Bisacodyl 10 Mg Supp.rect 10 Mg RC PRN DAILY PRN Tylenol (Acetaminophen) 325 Mg Tablet 650 Mg PO PRN Q6HRS PRN I have reviewed the current psychotropics carefully including drug interactions. Risk benefit ratio favors no change other than as noted in my dictated progress note. Diagnosis: Problems: (1) Depression (2) Schizoaffective disorder (3) Anxiety disorder (4) Impulse control disorder (5) Schizophrenia, paranoid, chronic with acute exacerbation CATHY EMERY MD Sep 17, 2018 22:38
--- NOTE | 2018-09-18 03:37 | PN ---
DATE: 09/16/2018 This late entry for 09/16/2018 covers elements not covered in my initial note. SUBJECTIVE: I met with the patient in the evening. The patient slept 8-1/2 hours previous night. I met with him in his room. He is quite appropriate, not aggressive, and we discussed discharge plans. REVIEW OF SYSTEMS: Ambulation impaired with walker. No CV, , pulmonary, eye system symptoms on review. MENTAL STATUS EXAM: Oriented to himself and situation. Speech coherent, abstraction fair, computation impaired. Mood and affect somewhat withdrawn at times, but improved. LABORATORY DATA: Reviewed. IMPRESSION: Unchanged from initial note. PLAN: No change from initial note, but we may reduce the Klonopin gradually. MAN Ty EMERY MD DR: SARINA/nilda JOB#: [id number] / [id number]
[2018-09-18] MEDS: LEVOTHYROXINE 50 MCG TABLET PO SCH (04:46)
[2018-09-18 06:39] VITALS: BP 136/88
[2018-09-18] MEDS: NICOTINE 14MG PATCH. TD SCH (08:08)
[2018-09-18] MEDS: POTASSIUM CHLORIDE 20 MEQ TABLET.ER. PO SCH (08:08)
[2018-09-18] MEDS: TAMSULOSIN 0.4 MG CAP.ER.24H. PO SCH (08:08)
[2018-09-18] MEDS: POLYETHYLENE GLYCOL 3350 17 GM PACKET. PO SCH (08:08)
[2018-09-18] MEDS: OXYBUTYNIN CHLORIDE 5 MG TABLET PO SCH ×2 (08:08→21:43)
[2018-09-18] MEDS: busPIRone 5 MG TABLET. PO SCH ×3 (08:09→21:42)
[2018-09-18] MEDS: DOCUSATE SODIUM 100 MG CAPSULE PO SCH ×2 (08:09→21:43)
[2018-09-18] MEDS: MULTIVITAMIN with MINERAL TABLET. PO SCH (08:09)
[2018-09-18] MEDS: amLODIPine BESYLATE 10 MG TABLET PO SCH (08:09)
[2018-09-18] MEDS: clonazePAM 0.5 MG TABLET PO SCH ×2 (08:13→21:44)
[2018-09-18] MEDS: GABAPENTIN 300 MG CAPSULE. PO SCH ×4 (08:13→21:43)
[2018-09-18 16:45] VITALS: BP 117/81
--- NOTE | 2018-09-18 21:31 | PN ---
DATE: 09/15/2018 This late entry for 09/15/2018 covers elements not covered in my initial note. SUBJECTIVE: I met with the patient in the evening. The patient slept 8-1/2 hours previous night. The patient was also staffed at a treatment team meeting with the entire team in the afternoon. Reviewed information from social service staff about placement and level 2 screening has been completed on the patient. He is ready to be transitioned to a lower level of care as soon as appropriate placement arranged. REVIEW OF SYSTEMS: Ambulation impaired with walker. No CV, , pulmonary, eye system symptoms on review. MENTAL STATUS EXAM: Oriented to himself and situation. Speech coherent, talked at length about discharge plans, pros and cons of various facilities. Abstraction fair, computation impaired, language function intact. Mood and affect is improved. No suicidal ideation. He is tolerating the increased Clozaril quite well and we have gradually reduced his Risperdal to where it has been discontinued now. LABORATORY DATA: Reviewed. IMPRESSION: Schizoaffective disorder, bipolar type, mixed with psychotic features, in partial remission. Rest unchanged. PLAN: Continue psychotropics from initial note. MAN Ty EMERY MD DR: SARINA/nilda JOB#: [id number] / [id number]
[2018-09-18] MEDS: DIVALPROEX ER 500 MG TAB.ER.24H PO SCH (21:43)
[2018-09-18] MEDS: cloZAPine 100 MG TABLET PO SCH (21:43)
--- NOTE | 2018-09-18 21:57 | PDOC ---
Exam Note: Nguyễn Note: Please also refer to the separate dictated note~for this date of service dictated separately.~Patient seen individually. Discussed the patient with Nursing staff reviewed the chart.~Reviewed interim history and current functioning. Reviewed vital signs,~Labs/ Radiology~and current medications noted below. Continue current treatment with the changes noted in the dictated addendum note Assessment: Vital Signs: Vital Signs Date Time Temp Pulse Resp B/P (MAP) Pulse Ox O2 Delivery O2 Flow Rate FiO2 09/18/18 16:45 98.4 102 18 117/81 (93) 96 09/18/18 06:39 Room Air I&O Intake and Output 09/18/18 07:01 Intake Total 940 ml Balance 940 ml Intake Oral 940 ml # Bowel Movements 1 Current Medications: Meds: Current Medications Acetaminophen (Tylenol) 650 mg PRN Q6HRS PRN PO PAIN / TEMP Last administered on 09/09/18 10:13; Start 06/21/18 at 20:15 Clonazepam (KlonoPIN) 1 mg BID PO Last administered on 08/14/18 19:19; Start 06/21/18 at 21:00; Stop 08/14/18 at 21:25; Status DC Gabapentin (Neurontin) 900 mg QID PO Last administered on 07/08/18at 16:58; Start 06/21/18 at 21:00; Stop 07/08/18 at 17:47; Status DC Al Hydroxide/Mg Hydroxide (Mylanta Plus Xs) 15 ml PRN AFTMEALHC PRN PO GI SYMPTOMS Last administered on 08/22/18 09:18; Start 06/21/18 at 20:15 Magnesium Hydroxide (Milk Of Magnesia) 400 mg PRN DAILY PRN PO CONSTIPATION Last administered on 09/09/18 14:28; Start 06/21/18 at 20:15 Multi-Ingredient Ointment (Analgesic [place]) 1 gerri PRN QID PRN TP MUSCLE PAIN Last administered on 09/04/18 06:17; Start 06/21/18 at 20:15 Oxybutynin Chloride (Ditropan) 2.5 mg BID PO Last administered on 09/18/18 21: 43; Start 06/21/18 at 21:00 Potassium Chloride (Klor-Con) 20 meq DAILY PO Last administered on 09/18/18 08: 08; Start 06/22/18 at 09:00 Tamsulosin HCl (Flomax) 0.8 mg DAILY PO Last administered on 09/18/18 08:08; Start 06/22/18 at 09:00 Amlodipine Besylate (Norvasc) 10 mg DAILY PO Last administered on 09/18/18 08: 09; Start 06/22/18 at 09:00 Baclofen (Lioresal) 10 mg QID PO Last administered on 07/07/18 19:36; Start 06/21/18 at 21:00; Stop 07/08/18 at 11:48; Status DC Bisacodyl (Dulcolax Supp) 10 mg PRN DAILY PRN [place] CONSTIPATION; Start 06/21/18 at 20:45 Buspirone HCl (Buspar) 10 mg TID PO Last administered on 09/13/18 20:51; Start 06/21/18 at 21:00; Stop 09/14/18 at 08:04; Status DC Divalproex Sodium (Depakote Er) 1,500 mg HS PO Last administered on 09/18/18 21 :43; Start 06/21/18 at 21:00 Non-Formulary Medication (Gabapentin ) 800 mg QID PO ; Start 06/21/18 at 21:00 ; Status UNV Levothyroxine Sodium (Synthroid) 50 mcg DAILY06 PO Last administered on 04:46; Start 06/22/18 at 06:00 Multivitamins/ Calcium (Thera-M Plus) 1 tab DAILY PO Last administered on 08:09; Start 06/22/18 at 09:00 Olanzapine (ZyPREXA ZYDIS) 2.5 mg PRN Q2HR PRN PO PSYCHOSIS Last administered on 08/10/18 20:19; Start 06/21/18 at 20:45 Olanzapine (ZyPREXA) 5 mg BID PO Last administered on 06/23/18 08:47; Start 06/21/18 at 21:00; Stop 06/23/18 at 17:06; Status DC Risperidone (RisperDAL) 1.5 mg HS PO Last administered on 06/23/18 19:45; Start 06/21/18 at 21:00; Stop 06/24/18 at 11:06; Status DC Trazodone HCl (Desyrel) 50 mg PRN QHS PRN PO INSOMNIA Last administered on at 20:19; Start 06/21/18 at 21:00; Stop 08/10/18 at 21:07; Status DC Nicotine (Nicoderm Cq 7mg) 1 patch PRN DAILY PRN TD SMOKING CESSATION; Start 06/21/18 at 23:30; Stop 07/09/18 at 05:39; Status DC Vitamin D (Vitamin D3) 50,000 unit WEEKLY PO Last administered on 09/15/18at 07: 54; Start 06/23/18 at 16:30 Olanzapine (ZyPREXA) 5 mg DAILY PO Last administered on 06/25/18at 08:04; Start 06/24/18 at 09:00; Stop 06/26/18 at 00:00; Status DC Risperidone (RisperDAL) 1.75 mg HS PO Last administered on 07/06/18at 20:08; Start 06/24/18 at 21:00; Stop 07/07/18 at 12:40; Status DC Risperidone (RisperDAL) 2 mg HS PO Last administered on 08/10/18at 20:15; Start 07/07/18 at 21:00; Stop 08/10/18 at 21:07; Status DC Gabapentin (Neurontin) 600 mg QID PO Last administered on 09/18/18at 21:43; Start 07/08/18 at 21:00 Nicotine (Nicoderm Cq 21mg) 1 patch DAILY TD Last administered on 07/30/18at 08 :54; Start 07/09/18 at 09:00; Stop 07/31/18 at 04:33; Status DC Clozapine (Clozaril) 25 mg DAILY PO Last administered on 07/27/18at 09:38; Start 07/13/18 at 09:00; Stop 07/27/18 at 16:52; Status DC Vitamin D (Vitamin D3) 50,000 unit WEEKLY PO ; Start 07/24/18 at 09:00; Status Cancel Clozapine (Clozaril) 50 mg DAILY PO Last administered on 08/03/18at 07:51; Start 07/28/18 at 09:00; Stop 08/03/18 at 21:09; Status DC Nicotine (Nicoderm Cq 21mg) 1 patch PRN DAILY PRN TD SMOKING CESSATION Last administered on 08/20/18 09:30; Start 07/31/18 at 04:45; Stop 08/21/18 at 10: 24; Status DC Clozapine (Clozaril) 75 mg HS PO Last administered on 08/08/18at 19:36; Start 08/04/18 at 21:00; Stop 08/09/18 at 17:33; Status DC Clozapine (Clozaril) 25 mg 1X ONCE PO Last administered on 08/03/18 21:25; Start 08/03/18 at 21:30; Stop 08/03/18 at 21:31; Status DC Clozapine (Clozaril) 100 mg QHS PO Last administered on 08/15/18 20:03; Start 08/09/18 at 21:00; Stop 08/16/18 at 16:48; Status DC Risperidone (RisperDAL) 1.5 mg HS PO Last administered on 08/16/18 19:21; Start 08/11/18 at 21:00; Stop 08/17/18 at 16:27; Status DC Trazodone HCl (Desyrel) 50 mg QHS PO ; Start 08/11/18 at 21:00; Stop 08/11/18 at 21:00; Status DC Ondansetron HCl (Zofran Odt) 4 mg PRN Q8HRS PRN PO NAUSEA/VOMITING Last administered on 08/12/18 11:11; Start 08/12/18 at 10:45; Stop 08/12/18 at 16:29; Status DC Ondansetron HCl (Zofran Odt) 4 mg PRN Q4HRS PRN PO NAUSEA/VOMITING Last administered on 08/13/18 08:20; Start 08/12/18 at 16:30 Clonazepam (KlonoPIN) 0.75 mg DAILY PO Last administered on 09/17/18at 08:32; Start 08/15/18 at 09:00; Stop 09/17/18 at 17:12; Status DC Clonazepam (KlonoPIN) 1 mg HS PO Last administered on 08/16/18 19:26; Start 08/15/18 at 21:00; Stop 08/16/18 at 21:00; Status DC Clonazepam (KlonoPIN) 0.75 mg HS PO Last administered on 09/18/18 21:44; Start 08/17/18 at 21:00 Clozapine (Clozaril) 125 mg QHS PO Last administered on 08/22/18 19:46; Start 08/16/18 at 21:00; Stop 08/23/18 at 16:56; Status DC Iohexol (Omnipaque 300 Mg/ml) 75 ml 1X ONCE IV ; Start 08/16/18 at 18:15; Stop 08/16/18 at 18:16; Status DC Iohexol (Omnipaque 300 Mg/ml) 75 ml 1X ONCE IV Last administered on 08/17/18at 09:12; Start 08/17/18 at 08:00; Stop 08/17/18 at 08:01; Status DC Iohexol (Omnipaque 300 Mg/ml) 75 ml 1X ONCE IV ; Start 08/17/18 at 09:00; Stop 08/17/18 at 09:02; Status DC Risperidone (RisperDAL) 1 mg QHS PO Last administered on 08/22/18at 19:46; Start 08/17/18 at 21:00; Stop 08/23/18 at 16:56; Status DC Nicotine (Nicoderm Cq 21mg) 1 patch DAILY TD Last administered on 09/05/18 08: 03; Start 08/21/18 at 10:30; Stop 09/06/18 at 02:22; Status DC Clozapine (Clozaril) 150 mg QHS PO Last administered on 09/06/18 19:30; Start 08/23/18 at 21:00; Stop 09/07/18 at 18:46; Status DC Risperidone (RisperDAL) 0.5 mg HS PO Last administered on 09/06/18 19:30; Start 08/23/18 at 21:00; Stop 09/07/18 at 18:46; Status DC Nicotine (Nicoderm Cq 14mg) 1 patch DAILY TD Last administered on 09/18/18 08: 08; Start 09/06/18 at 09:00 Clozapine (Clozaril) 100 mg QHS PO Last administered on 09/12/18at 20:05; Start 09/07/18 at 21:00; Stop 09/13/18 at 18:03; Status DC Clozapine (Clozaril) 75 mg QHS PO Last administered on 09/12/18 20:06; Start at 21:00; Stop 09/13/18 at 18:04; Status DC Simethicone (Gas-X) 80 mg PRN AFTMEALHC PRN PO GAS / BLOATING; Start 09/08/18 at 16:30 Docusate Sodium (Colace) 100 mg BID PO Last administered on 09/18/18at 21:43; Start 09/09/18 at 21:00 Polyethylene Glycol (miraLAX) 17 gm DAILY PO Last administered on 09/18/18at 08: 08; Start 09/10/18 at 09:00 Clozapine (Clozaril) 200 mg QHS PO ; Start 09/13/18 at 21:00; Stop 09/13/18 at 21: 00; Status DC Clozapine (Clozaril) 200 mg QHS PO Last administered on 09/18/18at 21:43; Start 09/13/18 at 21:00 Buspirone HCl (Buspar) 10 mg TID PO Last administered on 09/18/18at 21:42; Start 09/14/18 at 09:00 Clonazepam (KlonoPIN) 0.5 mg DAILY PO Last administered on 09/18/18 08:13; Start 09/18/18 at 09:00 Active Scripts Active Reported Zyprexa (Olanzapine) 5 Mg Tablet 5 Mg PO BID NICODERM CQ 7mg (Nicotine) 1 Each Patch.td24 1 Patch TD PRN DAILY PRN Trazodone Hcl 50 Mg Tablet 50 Mg PO PRN QHS PRN Risperdal (Risperidone) 1 Mg Tablet 1.5 Mg PO HS Analgesic [place] (Methyl Salicylate/Menthol) 28 Gm Oint...g. 1 Gerri TP PRN QID PRN Milk Of Magnesia (Magnesium Hydroxide) 400 Mg/5 Ml Oral.susp 400 Mg PO PRN DAILY PRN Mag-Al Plus Xs Suspension (Mag Hydrox/Al Hydrox/Simeth) 30 Ml Oral.susp 15 Ml PO PRN AFTMEALHC PRN Buspirone Hcl 10 Mg Tablet 10 Mg PO TID Baclofen 10 Mg Tablet 10 Mg PO QID Gabapentin 100 Mg Capsule 100 Mg PO QID Gabapentin 800 Mg Tablet 800 Mg PO QID Levothyroxine Sodium 50 Mcg Tablet 50 Mcg PO DAILYAC Klonopin (Clonazepam) 0.5 Mg Tablet 1 Mg PO BID Norvasc (Amlodipine Besylate) 10 Mg Tablet 10 Mg PO DAILY Oxybutynin Chloride 5 Mg Tablet 2.5 Mg PO BID Depakote Er (Divalproex Sodium) 500 Mg Tab.er.24h 1,500 Mg PO HS Klor-Con M20 (Potassium Chloride) 20 Meq Tab.er.prt 20 Meq PO DAILY Cymbalta (Duloxetine Hcl) 60 Mg Capsule.dr 60 Mg PO DAILY Multivitamin with Iron Tablet (Multivitamin/Iron/Folic Acid) 1 Each Tablet 1 Tab PO DAILY Flomax (Tamsulosin Hcl) 0.4 Mg Cap.er.24h 0.8 Mg PO DAILY Olanzapine 5 Mg Tablet 2.5 Mg PO PRN Q2HR PRN MDD 10mg/ 24 hrs Remeron (Mirtazapine) 15 Mg Tablet 7.5 Mg PO HS Bisacodyl 10 Mg Supp.rect 10 Mg RC PRN DAILY PRN Tylenol (Acetaminophen) 325 Mg Tablet 650 Mg PO PRN Q6HRS PRN I have reviewed the current psychotropics carefully including drug interactions. Risk benefit ratio favors no change other than as noted in my dictated progress note. Diagnosis: Problems: (1) Depression (2) Schizoaffective disorder (3) Anxiety disorder (4) Impulse control disorder (5) Schizophrenia, paranoid, chronic with acute exacerbation CATHY EMERY MD Sep 18, 2018 21:57
--- NOTE | 2018-09-18 23:48 | PN ---
DATE: 09/17/2018 PSYCHIATRIC PROGRESS NOTE This late entry 09/17/2018 covers elements not covered in my initial note. SUBJECTIVE: I met with the patient in the evening. The patient is doing about the same. He was somewhat drowsy in the morning. REVIEW OF SYSTEMS: Ambulation impaired with walker. No CV, , pulmonary, eye system symptoms on review. MENTAL STATUS EXAM: Oriented to himself and situation. Speech is coherent, abstraction fair, computation impaired. Mood and affect somewhat withdrawn. LABORATORY DATA: Reviewed. IMPRESSION: Unchanged from initial note. PLAN: No change from initial note. MAN Ty EMERY MD DR: SARINA/nilda JOB#: [id number] / [id number]
[2018-09-19] MEDS: LEVOTHYROXINE 50 MCG TABLET PO SCH (05:12)
[2018-09-19 06:47] VITALS: BP 104/75
[2018-09-19] MEDS: DOCUSATE SODIUM 100 MG CAPSULE PO SCH ×2 (07:52→19:31)
[2018-09-19] MEDS: MULTIVITAMIN with MINERAL TABLET. PO SCH (07:52)
[2018-09-19] MEDS: POLYETHYLENE GLYCOL 3350 17 GM PACKET. PO SCH (07:52)
[2018-09-19] MEDS: POTASSIUM CHLORIDE 20 MEQ TABLET.ER. PO SCH (07:52)
[2018-09-19] MEDS: TAMSULOSIN 0.4 MG CAP.ER.24H. PO SCH (07:52)
[2018-09-19] MEDS: NICOTINE 14MG PATCH. TD SCH (07:52)
[2018-09-19] MEDS: busPIRone 5 MG TABLET. PO SCH ×3 (07:53→19:32)
[2018-09-19] MEDS: amLODIPine BESYLATE 10 MG TABLET PO SCH (07:53)
[2018-09-19] MEDS: OXYBUTYNIN CHLORIDE 5 MG TABLET PO SCH ×2 (07:53→19:32)
[2018-09-19] MEDS: clonazePAM 0.5 MG TABLET PO SCH ×2 (07:54→19:33)
[2018-09-19] MEDS: GABAPENTIN 300 MG CAPSULE. PO SCH ×4 (07:54→19:31)
[2018-09-19] MEDS: ACETAMINOPHEN 325 MG TABLET PO PRN (12:38)
[2018-09-19 17:00] VITALS: BP 120/82
[2018-09-19] MEDS: DIVALPROEX ER 500 MG TAB.ER.24H PO SCH (19:31)
[2018-09-19] MEDS: cloZAPine 100 MG TABLET PO SCH (19:32)
--- NOTE | 2018-09-19 22:46 | PDOC ---
Exam Note: Nguyễn Note: Please also refer to the separate dictated note~for this date of service dictated separately.~Patient seen individually. Discussed the patient with Nursing staff reviewed the chart.~Reviewed interim history and current functioning. Reviewed vital signs,~Labs/ Radiology~and current medications noted below. Continue current treatment with the changes noted in the dictated addendum note Assessment: Vital Signs: Vital Signs Date Time Temp Pulse Resp B/P (MAP) Pulse Ox O2 Delivery O2 Flow Rate FiO2 09/19/18 17:00 98.4 112 20 120/82 (95) 93 09/19/18 06:47 Room Air I&O Intake and Output 09/19/18 07:01 Intake Total 1560 ml Balance 1560 ml Intake Oral 1560 ml Current Medications: Meds: Current Medications Acetaminophen (Tylenol) 650 mg PRN Q6HRS PRN PO PAIN / TEMP Last administered on 09/19/18 12:38; Start 06/21/18 at 20:15 Clonazepam (KlonoPIN) 1 mg BID PO Last administered on 08/14/18 19:19; Start 06/21/18 at 21:00; Stop 08/14/18 at 21:25; Status DC Gabapentin (Neurontin) 900 mg QID PO Last administered on 07/08/18at 16:58; Start 06/21/18 at 21:00; Stop 07/08/18 at 17:47; Status DC Al Hydroxide/Mg Hydroxide (Mylanta Plus Xs) 15 ml PRN AFTMEALHC PRN PO GI SYMPTOMS Last administered on 08/22/18 09:18; Start 06/21/18 at 20:15 Magnesium Hydroxide (Milk Of Magnesia) 400 mg PRN DAILY PRN PO CONSTIPATION Last administered on 09/09/18 14:28; Start 06/21/18 at 20:15 Multi-Ingredient Ointment (Analgesic [place]) 1 gerri PRN QID PRN TP MUSCLE PAIN Last administered on 09/04/18 06:17; Start 06/21/18 at 20:15 Oxybutynin Chloride (Ditropan) 2.5 mg BID PO Last administered on 09/19/18 19: 32; Start 06/21/18 at 21:00 Potassium Chloride (Klor-Con) 20 meq DAILY PO Last administered on 09/19/18 07 :52; Start 06/22/18 at 09:00 Tamsulosin HCl (Flomax) 0.8 mg DAILY PO Last administered on 09/19/18 07:52; Start 06/22/18 at 09:00 Amlodipine Besylate (Norvasc) 10 mg DAILY PO Last administered on 09/19/18 07: 53; Start 06/22/18 at 09:00 Baclofen (Lioresal) 10 mg QID PO Last administered on 07/07/18 19:36; Start 06/21/18 at 21:00; Stop 07/08/18 at 11:48; Status DC Bisacodyl (Dulcolax Supp) 10 mg PRN DAILY PRN [place] CONSTIPATION; Start 06/21/18 at 20:45 Buspirone HCl (Buspar) 10 mg TID PO Last administered on 09/13/18 20:51; Start 06/21/18 at 21:00; Stop 09/14/18 at 08:04; Status DC Divalproex Sodium (Depakote Er) 1,500 mg HS PO Last administered on 09/19/18 19:31; Start 06/21/18 at 21:00 Non-Formulary Medication (Gabapentin ) 800 mg QID PO ; Start 06/21/18 at 21:00 ; Status UNV Levothyroxine Sodium (Synthroid) 50 mcg DAILY06 PO Last administered on 05:12; Start 06/22/18 at 06:00 Multivitamins/ Calcium (Thera-M Plus) 1 tab DAILY PO Last administered on 07:52; Start 06/22/18 at 09:00 Olanzapine (ZyPREXA ZYDIS) 2.5 mg PRN Q2HR PRN PO PSYCHOSIS Last administered on 08/10/18 20:19; Start 06/21/18 at 20:45 Olanzapine (ZyPREXA) 5 mg BID PO Last administered on 06/23/18 08:47; Start 06/21/18 at 21:00; Stop 06/23/18 at 17:06; Status DC Risperidone (RisperDAL) 1.5 mg HS PO Last administered on 06/23/18 19:45; Start 06/21/18 at 21:00; Stop 06/24/18 at 11:06; Status DC Trazodone HCl (Desyrel) 50 mg PRN QHS PRN PO INSOMNIA Last administered on at 20:19; Start 06/21/18 at 21:00; Stop 08/10/18 at 21:07; Status DC Nicotine (Nicoderm Cq 7mg) 1 patch PRN DAILY PRN TD SMOKING CESSATION; Start 06/21/18 at 23:30; Stop 07/09/18 at 05:39; Status DC Vitamin D (Vitamin D3) 50,000 unit WEEKLY PO Last administered on 09/15/18at 07: 54; Start 06/23/18 at 16:30 Olanzapine (ZyPREXA) 5 mg DAILY PO Last administered on 06/25/18at 08:04; Start 06/24/18 at 09:00; Stop 06/26/18 at 00:00; Status DC Risperidone (RisperDAL) 1.75 mg HS PO Last administered on 07/06/18at 20:08; Start 06/24/18 at 21:00; Stop 07/07/18 at 12:40; Status DC Risperidone (RisperDAL) 2 mg HS PO Last administered on 08/10/18at 20:15; Start 07/07/18 at 21:00; Stop 08/10/18 at 21:07; Status DC Gabapentin (Neurontin) 600 mg QID PO Last administered on 09/19/18at 19:31; Start 07/08/18 at 21:00 Nicotine (Nicoderm Cq 21mg) 1 patch DAILY TD Last administered on 07/30/18at 08 :54; Start 07/09/18 at 09:00; Stop 07/31/18 at 04:33; Status DC Clozapine (Clozaril) 25 mg DAILY PO Last administered on 07/27/18at 09:38; Start 07/13/18 at 09:00; Stop 07/27/18 at 16:52; Status DC Vitamin D (Vitamin D3) 50,000 unit WEEKLY PO ; Start 07/24/18 at 09:00; Status Cancel Clozapine (Clozaril) 50 mg DAILY PO Last administered on 08/03/18at 07:51; Start 07/28/18 at 09:00; Stop 08/03/18 at 21:09; Status DC Nicotine (Nicoderm Cq 21mg) 1 patch PRN DAILY PRN TD SMOKING CESSATION Last administered on 08/20/18 09:30; Start 07/31/18 at 04:45; Stop 08/21/18 at 10: 24; Status DC Clozapine (Clozaril) 75 mg HS PO Last administered on 08/08/18at 19:36; Start 08/04/18 at 21:00; Stop 08/09/18 at 17:33; Status DC Clozapine (Clozaril) 25 mg 1X ONCE PO Last administered on 08/03/18at 21:25; Start 08/03/18 at 21:30; Stop 08/03/18 at 21:31; Status DC Clozapine (Clozaril) 100 mg QHS PO Last administered on 08/15/18 20:03; Start 08/09/18 at 21:00; Stop 08/16/18 at 16:48; Status DC Risperidone (RisperDAL) 1.5 mg HS PO Last administered on 08/16/18 19:21; Start 08/11/18 at 21:00; Stop 08/17/18 at 16:27; Status DC Trazodone HCl (Desyrel) 50 mg QHS PO ; Start 08/11/18 at 21:00; Stop 08/11/18 at 21:00; Status DC Ondansetron HCl (Zofran Odt) 4 mg PRN Q8HRS PRN PO NAUSEA/VOMITING Last administered on 08/12/18 11:11; Start 08/12/18 at 10:45; Stop 08/12/18 at 16:29; Status DC Ondansetron HCl (Zofran Odt) 4 mg PRN Q4HRS PRN PO NAUSEA/VOMITING Last administered on 08/13/18 08:20; Start 08/12/18 at 16:30 Clonazepam (KlonoPIN) 0.75 mg DAILY PO Last administered on 09/17/18 08:32; Start 08/15/18 at 09:00; Stop 09/17/18 at 17:12; Status DC Clonazepam (KlonoPIN) 1 mg HS PO Last administered on 08/16/18 19:26; Start 08/15/18 at 21:00; Stop 08/16/18 at 21:00; Status DC Clonazepam (KlonoPIN) 0.75 mg HS PO Last administered on 09/19/18 19:33; Start 08/17/18 at 21:00 Clozapine (Clozaril) 125 mg QHS PO Last administered on 08/22/18 19:46; Start 08/16/18 at 21:00; Stop 08/23/18 at 16:56; Status DC Iohexol (Omnipaque 300 Mg/ml) 75 ml 1X ONCE IV ; Start 08/16/18 at 18:15; Stop 08/16/18 at 18:16; Status DC Iohexol (Omnipaque 300 Mg/ml) 75 ml 1X ONCE IV Last administered on 08/17/18at 09:12; Start 08/17/18 at 08:00; Stop 08/17/18 at 08:01; Status DC Iohexol (Omnipaque 300 Mg/ml) 75 ml 1X ONCE IV ; Start 08/17/18 at 09:00; Stop 08/17/18 at 09:02; Status DC Risperidone (RisperDAL) 1 mg QHS PO Last administered on 08/22/18 19:46; Start 08/17/18 at 21:00; Stop 08/23/18 at 16:56; Status DC Nicotine (Nicoderm Cq 21mg) 1 patch DAILY TD Last administered on 09/05/18 08: 03; Start 08/21/18 at 10:30; Stop 09/06/18 at 02:22; Status DC Clozapine (Clozaril) 150 mg QHS PO Last administered on 09/06/18 19:30; Start 08/23/18 at 21:00; Stop 09/07/18 at 18:46; Status DC Risperidone (RisperDAL) 0.5 mg HS PO Last administered on 09/06/18at 19:30; Start 08/23/18 at 21:00; Stop 09/07/18 at 18:46; Status DC Nicotine (Nicoderm Cq 14mg) 1 patch DAILY TD Last administered on 09/19/18 07: 52; Start 09/06/18 at 09:00 Clozapine (Clozaril) 100 mg QHS PO Last administered on 09/12/18 20:05; Start 09/07/18 at 21:00; Stop 09/13/18 at 18:03; Status DC Clozapine (Clozaril) 75 mg QHS PO Last administered on 09/12/18 20:06; Start at 21:00; Stop 09/13/18 at 18:04; Status DC Simethicone (Gas-X) 80 mg PRN AFTMEALHC PRN PO GAS / BLOATING; Start 09/08/18 at 16:30 Docusate Sodium (Colace) 100 mg BID PO Last administered on 09/19/18 19:31; Start 09/09/18 at 21:00 Polyethylene Glycol (miraLAX) 17 gm DAILY PO Last administered on 09/19/18at 07: 52; Start 09/10/18 at 09:00 Clozapine (Clozaril) 200 mg QHS PO ; Start 09/13/18 at 21:00; Stop 09/13/18 at 21: 00; Status DC Clozapine (Clozaril) 200 mg QHS PO Last administered on 09/19/18 19:32; Start 09/13/18 at 21:00 Buspirone HCl (Buspar) 10 mg TID PO Last administered on 09/19/18 19:32; Start 09/14/18 at 09:00 Clonazepam (KlonoPIN) 0.5 mg DAILY PO Last administered on 09/19/18 07:54; Start 09/18/18 at 09:00 Active Scripts Active Reported Zyprexa (Olanzapine) 5 Mg Tablet 5 Mg PO BID NICODERM CQ 7mg (Nicotine) 1 Each Patch.td24 1 Patch TD PRN DAILY PRN Trazodone Hcl 50 Mg Tablet 50 Mg PO PRN QHS PRN Risperdal (Risperidone) 1 Mg Tablet 1.5 Mg PO HS Analgesic [place] (Methyl Salicylate/Menthol) 28 Gm Oint...g. 1 Gerri TP PRN QID PRN Milk Of Magnesia (Magnesium Hydroxide) 400 Mg/5 Ml Oral.susp 400 Mg PO PRN DAILY PRN Mag-Al Plus Xs Suspension (Mag Hydrox/Al Hydrox/Simeth) 30 Ml Oral.susp 15 Ml PO PRN AFTMEALHC PRN Buspirone Hcl 10 Mg Tablet 10 Mg PO TID Baclofen 10 Mg Tablet 10 Mg PO QID Gabapentin 100 Mg Capsule 100 Mg PO QID Gabapentin 800 Mg Tablet 800 Mg PO QID Levothyroxine Sodium 50 Mcg Tablet 50 Mcg PO DAILYAC Klonopin (Clonazepam) 0.5 Mg Tablet 1 Mg PO BID Norvasc (Amlodipine Besylate) 10 Mg Tablet 10 Mg PO DAILY Oxybutynin Chloride 5 Mg Tablet 2.5 Mg PO BID Depakote Er (Divalproex Sodium) 500 Mg Tab.er.24h 1,500 Mg PO HS Klor-Con M20 (Potassium Chloride) 20 Meq Tab.er.prt 20 Meq PO DAILY Cymbalta (Duloxetine Hcl) 60 Mg Capsule.dr 60 Mg PO DAILY Multivitamin with Iron Tablet (Multivitamin/Iron/Folic Acid) 1 Each Tablet 1 Tab PO DAILY Flomax (Tamsulosin Hcl) 0.4 Mg Cap.er.24h 0.8 Mg PO DAILY Olanzapine 5 Mg Tablet 2.5 Mg PO PRN Q2HR PRN MDD 10mg/ 24 hrs Remeron (Mirtazapine) 15 Mg Tablet 7.5 Mg PO HS Bisacodyl 10 Mg Supp.rect 10 Mg RC PRN DAILY PRN Tylenol (Acetaminophen) 325 Mg Tablet 650 Mg PO PRN Q6HRS PRN I have reviewed the current psychotropics carefully including drug interactions. Risk benefit ratio favors no change other than as noted in my dictated progress note. Diagnosis: Problems: (1) Depression (2) Schizoaffective disorder (3) Anxiety disorder (4) Impulse control disorder (5) Schizophrenia, paranoid, chronic with acute exacerbation CATHY EMERY MD Sep 19, 2018 22:46
--- NOTE | 2018-09-20 01:02 | PN ---
DATE: 09/18/2018 PSYCHIATRIC PROGRESS NOTE This late entry 09/18/2018 covers elements not covered in my initial note. SUBJECTIVE: I met with the patient in the evening. The patient slept 9-3/4 hours previous night. He remains somewhat withdrawn, but appropriate, talking at length about discharge plans. REVIEW OF SYSTEMS: Ambulation impaired with walker. No CV, , pulmonary, eye system symptoms on review. MENTAL STATUS EXAM: Oriented to himself and situation. Speech has some latency, coherent. Abstraction fair, computation impaired, language function intact. Mood and affect somewhat withdrawn. LABORATORY DATA: Reviewed. IMPRESSION: Unchanged from initial note. PLAN: No change from initial note. Increase Clozaril gradually, post-absolute neutrophil count check on 09/20/2018. MAN Ty EMERY MD DR: SARINA/nilda JOB#: [id number] / [id number]
[2018-09-20] MEDS: LEVOTHYROXINE 50 MCG TABLET PO SCH (05:51)
[2018-09-20 06:07] VITALS: BP 138/95
[2018-09-20 07:40] LABS: BASO % 1 % (0-3); EOS # 0.3 x10^3/uL (0.0-0.7); EOS % 4 % (0-3); HEMATOCRIT 43.4 % (39.0-53.0); HEMOGLOBIN 14.5 g/dL (13.0-17.5); LYMPH # 1.8 x10^3/uL (1.0-4.8); LYMPH % 24 % (24-48); MEAN CORPUSCULAR HEMOGLOBIN 29 pg (25-35); MEAN CORPUSCULAR HGB CONC 34 g/dL (31-37); MEAN CORPUSCULAR VOLUME 87 fL (79-100); MONO # 0.6 x10^3/uL (0.0-1.1); MONO % 7 % (0-9); NEUT # 4.9 x10^3uL (1.8-7.7); NEUT % 64 % (31-73); PLATELET COUNT 271 x10^3/uL (140-400); RED BLOOD COUNT 5.01 x10^6/uL (4.30-5.70); RED CELL DISTRIBUTION WIDTH 14.2 % (11.5-14.5); WHITE BLOOD COUNT 7.6 x10^3/uL (4.0-11.0)
[2018-09-20] MEDS: DOCUSATE SODIUM 100 MG CAPSULE PO SCH ×2 (07:42→19:22)
[2018-09-20] MEDS: busPIRone 5 MG TABLET. PO SCH ×3 (07:42→19:23)
[2018-09-20] MEDS: TAMSULOSIN 0.4 MG CAP.ER.24H. PO SCH (07:42)
[2018-09-20] MEDS: OXYBUTYNIN CHLORIDE 5 MG TABLET PO SCH ×2 (07:42→19:22)
[2018-09-20] MEDS: POTASSIUM CHLORIDE 20 MEQ TABLET.ER. PO SCH (07:47)
[2018-09-20] MEDS: clonazePAM 0.5 MG TABLET PO SCH ×2 (07:47→19:23)
[2018-09-20] MEDS: POLYETHYLENE GLYCOL 3350 17 GM PACKET. PO SCH (07:47)
[2018-09-20] MEDS: MULTIVITAMIN with MINERAL TABLET. PO SCH (07:52)
[2018-09-20] MEDS: amLODIPine BESYLATE 10 MG TABLET PO SCH (07:52)
[2018-09-20] MEDS: GABAPENTIN 300 MG CAPSULE. PO SCH ×4 (07:52→19:22)
[2018-09-20] MEDS: NICOTINE 14MG PATCH. TD SCH (07:53)
[2018-09-20 07:57] LABS: ALBUMIN/GLOBULIN RATIO 0.8 (1.0-1.7); CALCIUM 8.4 mg/dL (8.5-10.1); CREATININE 0.6 mg/dL (0.7-1.3); GFR 138.9; POTASSIUM 4.1 mmol/L (3.5-5.1); TOTAL BILIRUBIN 0.3 mg/dL (0.2-1.0); TOTAL PROTEIN 6.9 g/dL (6.4-8.2)
[2018-09-20 16:35] VITALS: BP 125/88
[2018-09-20] MEDS: DIVALPROEX ER 500 MG TAB.ER.24H PO SCH (19:22)
[2018-09-20] MEDS: cloZAPine 100 MG TABLET PO SCH (19:23)
--- NOTE | 2018-09-21 03:42 | PN ---
DATE: 09/19/2018 PSYCHIATRIC PROGRESS NOTE This late entry 09/19/2018 covers elements not covered in my initial note. SUBJECTIVE: I met with the patient in his room. The patient slept 7-1/2 hours previous night. He remained somewhat withdrawn, but appropriate. REVIEW OF SYSTEMS: Ambulation impaired with walker. No CV, , pulmonary, eye system symptoms on review. MENTAL STATUS EXAM: Oriented reasonably. Speech is low in rate and rhythm, low in volume. Abstraction fair, computation impaired, language function intact, attention span short. Mood and affect somewhat withdrawn, but not psychotic despite discontinuing his Risperdal completely. LABORATORY DATA: Reviewed. IMPRESSION: Unchanged from initial note. PLAN: No change from initial note. MAN Ty EMERY MD DR: SARINA/nilda JOB#: [id number] / [id number]
[2018-09-21] MEDS: LEVOTHYROXINE 50 MCG TABLET PO SCH (04:55)
[2018-09-21 05:44] VITALS: BP 102/71
[2018-09-21] MEDS: OXYBUTYNIN CHLORIDE 5 MG TABLET PO SCH ×2 (08:32→19:31)
[2018-09-21] MEDS: busPIRone 5 MG TABLET. PO SCH ×3 (08:33→19:31)
[2018-09-21] MEDS: TAMSULOSIN 0.4 MG CAP.ER.24H. PO SCH (08:33)
[2018-09-21] MEDS: MULTIVITAMIN with MINERAL TABLET. PO SCH (08:33)
[2018-09-21] MEDS: POTASSIUM CHLORIDE 20 MEQ TABLET.ER. PO SCH (08:33)
[2018-09-21] MEDS: amLODIPine BESYLATE 10 MG TABLET PO SCH (08:33)
[2018-09-21] MEDS: DOCUSATE SODIUM 100 MG CAPSULE PO SCH ×2 (08:33→19:31)
[2018-09-21] MEDS: NICOTINE 14MG PATCH. TD SCH ×2 (08:34→08:42)
[2018-09-21] MEDS: POLYETHYLENE GLYCOL 3350 17 GM PACKET. PO SCH (08:34)
[2018-09-21] MEDS: GABAPENTIN 300 MG CAPSULE. PO SCH ×4 (08:35→19:41)
[2018-09-21] MEDS: clonazePAM 0.5 MG TABLET PO SCH ×2 (08:36→19:41)
--- NOTE | 2018-09-21 09:17 | PDOC ---
Exam Note: Nguyễn Note: Late entry for DOS 09.20.2018. Please also refer to the separate dictated note~ for this date of service dictated separately.~Patient seen individually. Discussed the patient with Nursing staff reviewed the chart.~Reviewed interim history and current functioning. Reviewed vital signs,~Labs/ Radiology~and current medications noted below. Continue current treatment with the changes noted in the dictated addendum note Assessment: Vital Signs: VS - Last 72 Hours, by Label Date Time Temp Pulse Resp B/P (MAP) Pulse Ox O2 Delivery O2 Flow Rate FiO2 09/21/18 08:33 83 102/71 09/21/18 05:44 98.2 83 20 102/71 (81) 94 09/20/18 16:35 98.1 93 18 125/88 (100) 97 09/20/18 07:52 88 138/95 09/20/18 06:07 97.4 88 16 138/95 (109) 94 09/19/18 17:00 98.4 112 20 120/82 (95) 93 09/19/18 07:53 89 104/75 09/19/18 06:47 98.0 89 18 104/75 (85) 94 Room Air 09/18/18 16:45 98.4 102 18 117/81 (93) 96 Vital Signs Date Time Temp Pulse Resp B/P (MAP) Pulse Ox O2 Delivery O2 Flow Rate FiO2 09/21/18 08:33 83 102/71 09/21/18 05:44 98.2 20 94 09/19/18 06:47 Room Air I&O Intake and Output 09/21/18 07:00 Intake Total 1200 ml Balance 1200 ml Intake Oral 1200 ml # Voids 1 # Bowel Movements 1 Current Medications: Meds: Current Medications Acetaminophen (Tylenol) 650 mg PRN Q6HRS PRN PO PAIN / TEMP Last administered on 09/19/18at 12:38; Start 06/21/18 at 20:15 Clonazepam (KlonoPIN) 1 mg BID PO Last administered on 08/14/18at 19:19; Start 06/21/18 at 21:00; Stop 08/14/18 at 21:25; Status DC Gabapentin (Neurontin) 900 mg QID PO Last administered on 07/08/18at 16:58; Start 06/21/18 at 21:00; Stop 07/08/18 at 17:47; Status DC Al Hydroxide/Mg Hydroxide (Mylanta Plus Xs) 15 ml PRN AFTMEALHC PRN PO GI SYMPTOMS Last administered on 08/22/18 09:18; Start 06/21/18 at 20:15 Magnesium Hydroxide (Milk Of Magnesia) 400 mg PRN DAILY PRN PO CONSTIPATION Last administered on 09/09/18 14:28; Start 06/21/18 at 20:15 Multi-Ingredient Ointment (Analgesic [place]) 1 gerri PRN QID PRN TP MUSCLE PAIN Last administered on 09/04/18 06:17; Start 06/21/18 at 20:15 Oxybutynin Chloride (Ditropan) 2.5 mg BID PO Last administered on 09/21/18 08: 32; Start 06/21/18 at 21:00 Potassium Chloride (Klor-Con) 20 meq DAILY PO Last administered on 09/21/18 08 :33; Start 06/22/18 at 09:00 Tamsulosin HCl (Flomax) 0.8 mg DAILY PO Last administered on 09/21/18 08:33; Start 06/22/18 at 09:00 Amlodipine Besylate (Norvasc) 10 mg DAILY PO Last administered on 09/21/18 08: 33; Start 06/22/18 at 09:00 Baclofen (Lioresal) 10 mg QID PO Last administered on 07/07/18at 19:36; Start 06/21/18 at 21:00; Stop 07/08/18 at 11:48; Status DC Bisacodyl (Dulcolax Supp) 10 mg PRN DAILY PRN [place] CONSTIPATION; Start 06/21/18 at 20:45 Buspirone HCl (Buspar) 10 mg TID PO Last administered on 09/13/18 20:51; Start 06/21/18 at 21:00; Stop 09/14/18 at 08:04; Status DC Divalproex Sodium (Depakote Er) 1,500 mg HS PO Last administered on 09/20/18 19:22; Start 06/21/18 at 21:00 Non-Formulary Medication (Gabapentin ) 800 mg QID PO ; Start 06/21/18 at 21:00 ; Status UNV Levothyroxine Sodium (Synthroid) 50 mcg DAILY06 PO Last administered on 04:55; Start 06/22/18 at 06:00 Multivitamins/ Calcium (Thera-M Plus) 1 tab DAILY PO Last administered on 08:33; Start 06/22/18 at 09:00 Olanzapine (ZyPREXA ZYDIS) 2.5 mg PRN Q2HR PRN PO PSYCHOSIS Last administered on 08/10/18 20:19; Start 06/21/18 at 20:45 Olanzapine (ZyPREXA) 5 mg BID PO Last administered on 06/23/18at 08:47; Start 06/21/18 at 21:00; Stop 06/23/18 at 17:06; Status DC Risperidone (RisperDAL) 1.5 mg HS PO Last administered on 06/23/18at 19:45; Start 06/21/18 at 21:00; Stop 06/24/18 at 11:06; Status DC Trazodone HCl (Desyrel) 50 mg PRN QHS PRN PO INSOMNIA Last administered on 20:19; Start 06/21/18 at 21:00; Stop 08/10/18 at 21:07; Status DC Nicotine (Nicoderm Cq 7mg) 1 patch PRN DAILY PRN TD SMOKING CESSATION; Start 06/21/18 at 23:30; Stop 07/09/18 at 05:39; Status DC Vitamin D (Vitamin D3) 50,000 unit WEEKLY PO Last administered on 09/15/18at 07: 54; Start 06/23/18 at 16:30 Olanzapine (ZyPREXA) 5 mg DAILY PO Last administered on 06/25/18at 08:04; Start 06/24/18 at 09:00; Stop 06/26/18 at 00:00; Status DC Risperidone (RisperDAL) 1.75 mg HS PO Last administered on 07/06/18at 20:08; Start 06/24/18 at 21:00; Stop 07/07/18 at 12:40; Status DC Risperidone (RisperDAL) 2 mg HS PO Last administered on 08/10/18at 20:15; Start 07/07/18 at 21:00; Stop 08/10/18 at 21:07; Status DC Gabapentin (Neurontin) 600 mg QID PO Last administered on 09/21/18at 08:35; Start 07/08/18 at 21:00 Nicotine (Nicoderm Cq 21mg) 1 patch DAILY TD Last administered on 07/30/18at 08 :54; Start 07/09/18 at 09:00; Stop 07/31/18 at 04:33; Status DC Clozapine (Clozaril) 25 mg DAILY PO Last administered on 07/27/18at 09:38; Start 07/13/18 at 09:00; Stop 07/27/18 at 16:52; Status DC Vitamin D (Vitamin D3) 50,000 unit WEEKLY PO ; Start 07/24/18 at 09:00; Status Cancel Clozapine (Clozaril) 50 mg DAILY PO Last administered on 08/03/18at 07:51; Start 07/28/18 at 09:00; Stop 08/03/18 at 21:09; Status DC Nicotine (Nicoderm Cq 21mg) 1 patch PRN DAILY PRN TD SMOKING CESSATION Last administered on 08/20/18at 09:30; Start 07/31/18 at 04:45; Stop 08/21/18 at 10: 24; Status DC Clozapine (Clozaril) 75 mg HS PO Last administered on 08/08/18at 19:36; Start 08/04/18 at 21:00; Stop 08/09/18 at 17:33; Status DC Clozapine (Clozaril) 25 mg 1X ONCE PO Last administered on 08/03/18at 21:25; Start 08/03/18 at 21:30; Stop 08/03/18 at 21:31; Status DC Clozapine (Clozaril) 100 mg QHS PO Last administered on 08/15/18at 20:03; Start 08/09/18 at 21:00; Stop 08/16/18 at 16:48; Status DC Risperidone (RisperDAL) 1.5 mg HS PO Last administered on 08/16/18at 19:21; Start 08/11/18 at 21:00; Stop 08/17/18 at 16:27; Status DC Trazodone HCl (Desyrel) 50 mg QHS PO ; Start 08/11/18 at 21:00; Stop 08/11/18 at 21:00; Status DC Ondansetron HCl (Zofran Odt) 4 mg PRN Q8HRS PRN PO NAUSEA/VOMITING Last administered on 08/12/18 11:11; Start 08/12/18 at 10:45; Stop 08/12/18 at 16:29; Status DC Ondansetron HCl (Zofran Odt) 4 mg PRN Q4HRS PRN PO NAUSEA/VOMITING Last administered on 08/13/18 08:20; Start 08/12/18 at 16:30 Clonazepam (KlonoPIN) 0.75 mg DAILY PO Last administered on 09/17/18 08:32; Start 08/15/18 at 09:00; Stop 09/17/18 at 17:12; Status DC Clonazepam (KlonoPIN) 1 mg HS PO Last administered on 08/16/18 19:26; Start 08/15/18 at 21:00; Stop 08/16/18 at 21:00; Status DC Clonazepam (KlonoPIN) 0.75 mg HS PO Last administered on 09/20/18 19:23; Start 08/17/18 at 21:00 Clozapine (Clozaril) 125 mg QHS PO Last administered on 08/22/18 19:46; Start 08/16/18 at 21:00; Stop 08/23/18 at 16:56; Status DC Iohexol (Omnipaque 300 Mg/ml) 75 ml 1X ONCE IV ; Start 08/16/18 at 18:15; Stop 08/16/18 at 18:16; Status DC Iohexol (Omnipaque 300 Mg/ml) 75 ml 1X ONCE IV Last administered on 08/17/18 09:12; Start 08/17/18 at 08:00; Stop 08/17/18 at 08:01; Status DC Iohexol (Omnipaque 300 Mg/ml) 75 ml 1X ONCE IV ; Start 08/17/18 at 09:00; Stop 08/17/18 at 09:02; Status DC Risperidone (RisperDAL) 1 mg QHS PO Last administered on 08/22/18 19:46; Start 08/17/18 at 21:00; Stop 08/23/18 at 16:56; Status DC Nicotine (Nicoderm Cq 21mg) 1 patch DAILY TD Last administered on 09/05/18 08: 03; Start 08/21/18 at 10:30; Stop 09/06/18 at 02:22; Status DC Clozapine (Clozaril) 150 mg QHS PO Last administered on 09/06/18 19:30; Start 08/23/18 at 21:00; Stop 09/07/18 at 18:46; Status DC Risperidone (RisperDAL) 0.5 mg HS PO Last administered on 09/06/18 19:30; Start 08/23/18 at 21:00; Stop 09/07/18 at 18:46; Status DC Nicotine (Nicoderm Cq 14mg) 1 patch DAILY TD Last administered on 09/20/18 07: 53; Start 09/06/18 at 09:00 Clozapine (Clozaril) 100 mg QHS PO Last administered on 09/12/18 20:05; Start 09/07/18 at 21:00; Stop 09/13/18 at 18:03; Status DC Clozapine (Clozaril) 75 mg QHS PO Last administered on 09/12/18 20:06; Start at 21:00; Stop 09/13/18 at 18:04; Status DC Simethicone (Gas-X) 80 mg PRN AFTMEALHC PRN PO GAS / BLOATING; Start 09/08/18 at 16:30 Docusate Sodium (Colace) 100 mg BID PO Last administered on 09/21/18 08:33; Start 09/09/18 at 21:00 Polyethylene Glycol (miraLAX) 17 gm DAILY PO Last administered on 09/21/18 08: 34; Start 09/10/18 at 09:00 Clozapine (Clozaril) 200 mg QHS PO ; Start 09/13/18 at 21:00; Stop 09/13/18 at 21: 00; Status DC Clozapine (Clozaril) 200 mg QHS PO Last administered on 09/20/18 19:23; Start 09/13/18 at 21:00 Buspirone HCl (Buspar) 10 mg TID PO Last administered on 09/21/18 08:33; Start 09/14/18 at 09:00 Clonazepam (KlonoPIN) 0.5 mg DAILY PO Last administered on 09/21/18 08:36; Start 09/18/18 at 09:00 Active Scripts Active Reported Zyprexa (Olanzapine) 5 Mg Tablet 5 Mg PO BID NICODERM CQ 7mg (Nicotine) 1 Each Patch.td24 1 Patch TD PRN DAILY PRN Trazodone Hcl 50 Mg Tablet 50 Mg PO PRN QHS PRN Risperdal (Risperidone) 1 Mg Tablet 1.5 Mg PO HS Analgesic [place] (Methyl Salicylate/Menthol) 28 Gm Oint...g. 1 Gerri TP PRN QID PRN Milk Of Magnesia (Magnesium Hydroxide) 400 Mg/5 Ml Oral.susp 400 Mg PO PRN DAILY PRN Mag-Al Plus Xs Suspension (Mag Hydrox/Al Hydrox/Simeth) 30 Ml Oral.susp 15 Ml PO PRN AFTMEALHC PRN Buspirone Hcl 10 Mg Tablet 10 Mg PO TID Baclofen 10 Mg Tablet 10 Mg PO QID Gabapentin 100 Mg Capsule 100 Mg PO QID Gabapentin 800 Mg Tablet 800 Mg PO QID Levothyroxine Sodium 50 Mcg Tablet 50 Mcg PO DAILYAC Klonopin (Clonazepam) 0.5 Mg Tablet 1 Mg PO BID Norvasc (Amlodipine Besylate) 10 Mg Tablet 10 Mg PO DAILY Oxybutynin Chloride 5 Mg Tablet 2.5 Mg PO BID Depakote Er (Divalproex Sodium) 500 Mg Tab.er.24h 1,500 Mg PO HS Klor-Con M20 (Potassium Chloride) 20 Meq Tab.er.prt 20 Meq PO DAILY Cymbalta (Duloxetine Hcl) 60 Mg Capsule.dr 60 Mg PO DAILY Multivitamin with Iron Tablet (Multivitamin/Iron/Folic Acid) 1 Each Tablet 1 Tab PO DAILY Flomax (Tamsulosin Hcl) 0.4 Mg Cap.er.24h 0.8 Mg PO DAILY Olanzapine 5 Mg Tablet 2.5 Mg PO PRN Q2HR PRN MDD 10mg/ 24 hrs Remeron (Mirtazapine) 15 Mg Tablet 7.5 Mg PO HS Bisacodyl 10 Mg Supp.rect 10 Mg RC PRN DAILY PRN Tylenol (Acetaminophen) 325 Mg Tablet 650 Mg PO PRN Q6HRS PRN I have reviewed the current psychotropics carefully including drug interactions. Risk benefit ratio favors no change other than as noted in my dictated progress note. Diagnosis: Problems: (1) Depression (2) Schizoaffective disorder (3) Anxiety disorder (4) Impulse control disorder (5) Schizophrenia, paranoid, chronic with acute exacerbation CATHY EMERY MD Sep 21, 2018 09:17
[2018-09-21 15:09] VITALS: BP 103/68
[2018-09-21] MEDS: cloZAPine 100 MG TABLET PO SCH (19:31)
[2018-09-21] MEDS: DIVALPROEX ER 500 MG TAB.ER.24H PO SCH (19:32)
--- NOTE | 2018-09-21 21:51 | PN ---
DATE: 09/20/2018 PSYCHIATRIC PROGRESS NOTE This late entry of 09/20/2017 covers elements not covered in my initial note. SUBJECTIVE: I met with the patient in the evening. The patient slept 8 hours previous night. WBC 7.6, neutrophils 64%, absolute neutrophil count on the Clozaril is unremarkable. 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 Processed this with him. REVIEW OF SYSTEMS: Ambulation impaired with walker. No CV, , pulmonary, eye, ENT system symptoms on review. MENTAL STATUS EXAM: Oriented to himself and situation. Speech coherent, abstraction fair, computation impaired, language function intact, attention span short. Mood and affect is improved. LABORATORY DATA: Reviewed. IMPRESSION: Unchanged from initial note. PLAN: No change from initial note. We will not increase the Clozaril just yet since he seems to be tolerating it well and clinically doing well enough in preparation for discharge. CATHY EMERY MD DR: SARINA/nilda JOB#: [id number] / [id number]
--- NOTE | 2018-09-21 22:40 | PDOC ---
Exam Note: Nguyễn Note: Please also refer to the separate dictated note~for this date of service dictated separately.~Patient seen individually. Discussed the patient with Nursing staff reviewed the chart.~Reviewed interim history and current functioning. Reviewed vital signs,~Labs/ Radiology~and current medications noted below. Continue current treatment with the changes noted in the dictated addendum note Assessment: Vital Signs: Vital Signs Date Time Temp Pulse Resp B/P (MAP) Pulse Ox O2 Delivery O2 Flow Rate FiO2 09/21/18 15:09 98.6 92 18 103/68 (80) 95 09/19/18 06:47 Room Air I&O Intake and Output 09/21/18 07:00 Intake Total 1200 ml Balance 1200 ml Intake Oral 1200 ml # Voids 1 # Bowel Movements 1 Current Medications: Meds: Current Medications Acetaminophen (Tylenol) 650 mg PRN Q6HRS PRN PO PAIN / TEMP Last administered on 09/19/18 12:38; Start 06/21/18 at 20:15 Clonazepam (KlonoPIN) 1 mg BID PO Last administered on 08/14/18 19:19; Start 06/21/18 at 21:00; Stop 08/14/18 at 21:25; Status DC Gabapentin (Neurontin) 900 mg QID PO Last administered on 07/08/18at 16:58; Start 06/21/18 at 21:00; Stop 07/08/18 at 17:47; Status DC Al Hydroxide/Mg Hydroxide (Mylanta Plus Xs) 15 ml PRN AFTMEALHC PRN PO GI SYMPTOMS Last administered on 08/22/18 09:18; Start 06/21/18 at 20:15 Magnesium Hydroxide (Milk Of Magnesia) 400 mg PRN DAILY PRN PO CONSTIPATION Last administered on 09/09/18 14:28; Start 06/21/18 at 20:15 Multi-Ingredient Ointment (Analgesic [place]) 1 gerri PRN QID PRN TP MUSCLE PAIN Last administered on 09/04/18 06:17; Start 06/21/18 at 20:15 Oxybutynin Chloride (Ditropan) 2.5 mg BID PO Last administered on 09/21/18 19: 31; Start 06/21/18 at 21:00 Potassium Chloride (Klor-Con) 20 meq DAILY PO Last administered on 09/21/18 08 :33; Start 06/22/18 at 09:00 Tamsulosin HCl (Flomax) 0.8 mg DAILY PO Last administered on 09/21/18 08:33; Start 06/22/18 at 09:00 Amlodipine Besylate (Norvasc) 10 mg DAILY PO Last administered on 09/21/18 08: 33; Start 06/22/18 at 09:00 Baclofen (Lioresal) 10 mg QID PO Last administered on 07/07/18 19:36; Start 06/21/18 at 21:00; Stop 07/08/18 at 11:48; Status DC Bisacodyl (Dulcolax Supp) 10 mg PRN DAILY PRN [place] CONSTIPATION; Start 06/21/18 at 20:45 Buspirone HCl (Buspar) 10 mg TID PO Last administered on 09/13/18 20:51; Start 06/21/18 at 21:00; Stop 09/14/18 at 08:04; Status DC Divalproex Sodium (Depakote Er) 1,500 mg HS PO Last administered on 09/21/18 19:32; Start 06/21/18 at 21:00 Non-Formulary Medication (Gabapentin ) 800 mg QID PO ; Start 06/21/18 at 21:00 ; Status UNV Levothyroxine Sodium (Synthroid) 50 mcg DAILY06 PO Last administered on 04:55; Start 06/22/18 at 06:00 Multivitamins/ Calcium (Thera-M Plus) 1 tab DAILY PO Last administered on 08:33; Start 06/22/18 at 09:00 Olanzapine (ZyPREXA ZYDIS) 2.5 mg PRN Q2HR PRN PO PSYCHOSIS Last administered on 08/10/18 20:19; Start 06/21/18 at 20:45 Olanzapine (ZyPREXA) 5 mg BID PO Last administered on 06/23/18 08:47; Start 06/21/18 at 21:00; Stop 06/23/18 at 17:06; Status DC Risperidone (RisperDAL) 1.5 mg HS PO Last administered on 06/23/18 19:45; Start 06/21/18 at 21:00; Stop 06/24/18 at 11:06; Status DC Trazodone HCl (Desyrel) 50 mg PRN QHS PRN PO INSOMNIA Last administered on at 20:19; Start 06/21/18 at 21:00; Stop 08/10/18 at 21:07; Status DC Nicotine (Nicoderm Cq 7mg) 1 patch PRN DAILY PRN TD SMOKING CESSATION; Start 06/21/18 at 23:30; Stop 07/09/18 at 05:39; Status DC Vitamin D (Vitamin D3) 50,000 unit WEEKLY PO Last administered on 09/15/18at 07: 54; Start 06/23/18 at 16:30 Olanzapine (ZyPREXA) 5 mg DAILY PO Last administered on 06/25/18at 08:04; Start 06/24/18 at 09:00; Stop 06/26/18 at 00:00; Status DC Risperidone (RisperDAL) 1.75 mg HS PO Last administered on 07/06/18at 20:08; Start 06/24/18 at 21:00; Stop 07/07/18 at 12:40; Status DC Risperidone (RisperDAL) 2 mg HS PO Last administered on 08/10/18at 20:15; Start 07/07/18 at 21:00; Stop 08/10/18 at 21:07; Status DC Gabapentin (Neurontin) 600 mg QID PO Last administered on 09/21/18at 19:41; Start 07/08/18 at 21:00 Nicotine (Nicoderm Cq 21mg) 1 patch DAILY TD Last administered on 07/30/18at 08 :54; Start 07/09/18 at 09:00; Stop 07/31/18 at 04:33; Status DC Clozapine (Clozaril) 25 mg DAILY PO Last administered on 07/27/18at 09:38; Start 07/13/18 at 09:00; Stop 07/27/18 at 16:52; Status DC Vitamin D (Vitamin D3) 50,000 unit WEEKLY PO ; Start 07/24/18 at 09:00; Status Cancel Clozapine (Clozaril) 50 mg DAILY PO Last administered on 08/03/18at 07:51; Start 07/28/18 at 09:00; Stop 08/03/18 at 21:09; Status DC Nicotine (Nicoderm Cq 21mg) 1 patch PRN DAILY PRN TD SMOKING CESSATION Last administered on 08/20/18 09:30; Start 07/31/18 at 04:45; Stop 08/21/18 at 10: 24; Status DC Clozapine (Clozaril) 75 mg HS PO Last administered on 08/08/18at 19:36; Start 08/04/18 at 21:00; Stop 08/09/18 at 17:33; Status DC Clozapine (Clozaril) 25 mg 1X ONCE PO Last administered on 08/03/18at 21:25; Start 08/03/18 at 21:30; Stop 08/03/18 at 21:31; Status DC Clozapine (Clozaril) 100 mg QHS PO Last administered on 08/15/18 20:03; Start 08/09/18 at 21:00; Stop 08/16/18 at 16:48; Status DC Risperidone (RisperDAL) 1.5 mg HS PO Last administered on 08/16/18 19:21; Start 08/11/18 at 21:00; Stop 08/17/18 at 16:27; Status DC Trazodone HCl (Desyrel) 50 mg QHS PO ; Start 08/11/18 at 21:00; Stop 08/11/18 at 21:00; Status DC Ondansetron HCl (Zofran Odt) 4 mg PRN Q8HRS PRN PO NAUSEA/VOMITING Last administered on 08/12/18 11:11; Start 08/12/18 at 10:45; Stop 08/12/18 at 16:29; Status DC Ondansetron HCl (Zofran Odt) 4 mg PRN Q4HRS PRN PO NAUSEA/VOMITING Last administered on 08/13/18 08:20; Start 08/12/18 at 16:30 Clonazepam (KlonoPIN) 0.75 mg DAILY PO Last administered on 09/17/18at 08:32; Start 08/15/18 at 09:00; Stop 09/17/18 at 17:12; Status DC Clonazepam (KlonoPIN) 1 mg HS PO Last administered on 08/16/18 19:26; Start 08/15/18 at 21:00; Stop 08/16/18 at 21:00; Status DC Clonazepam (KlonoPIN) 0.75 mg HS PO Last administered on 09/21/18 19:41; Start 08/17/18 at 21:00 Clozapine (Clozaril) 125 mg QHS PO Last administered on 08/22/18at 19:46; Start 08/16/18 at 21:00; Stop 08/23/18 at 16:56; Status DC Iohexol (Omnipaque 300 Mg/ml) 75 ml 1X ONCE IV ; Start 08/16/18 at 18:15; Stop 08/16/18 at 18:16; Status DC Iohexol (Omnipaque 300 Mg/ml) 75 ml 1X ONCE IV Last administered on 08/17/18at 09:12; Start 08/17/18 at 08:00; Stop 08/17/18 at 08:01; Status DC Iohexol (Omnipaque 300 Mg/ml) 75 ml 1X ONCE IV ; Start 08/17/18 at 09:00; Stop 08/17/18 at 09:02; Status DC Risperidone (RisperDAL) 1 mg QHS PO Last administered on 08/22/18at 19:46; Start 08/17/18 at 21:00; Stop 08/23/18 at 16:56; Status DC Nicotine (Nicoderm Cq 21mg) 1 patch DAILY TD Last administered on 09/05/18at 08: 03; Start 08/21/18 at 10:30; Stop 09/06/18 at 02:22; Status DC Clozapine (Clozaril) 150 mg QHS PO Last administered on 09/06/18at 19:30; Start 08/23/18 at 21:00; Stop 09/07/18 at 18:46; Status DC Risperidone (RisperDAL) 0.5 mg HS PO Last administered on 09/06/18 19:30; Start 08/23/18 at 21:00; Stop 09/07/18 at 18:46; Status DC Nicotine (Nicoderm Cq 14mg) 1 patch DAILY TD Last administered on 09/20/18at 07: 53; Start 09/06/18 at 09:00 Clozapine (Clozaril) 100 mg QHS PO Last administered on 09/12/18at 20:05; Start 09/07/18 at 21:00; Stop 09/13/18 at 18:03; Status DC Clozapine (Clozaril) 75 mg QHS PO Last administered on 09/12/18 20:06; Start at 21:00; Stop 09/13/18 at 18:04; Status DC Simethicone (Gas-X) 80 mg PRN AFTMEALHC PRN PO GAS / BLOATING; Start 09/08/18 at 16:30 Docusate Sodium (Colace) 100 mg BID PO Last administered on 09/21/18 19:31; Start 09/09/18 at 21:00 Polyethylene Glycol (miraLAX) 17 gm DAILY PO Last administered on 09/21/18at 08: 34; Start 09/10/18 at 09:00 Clozapine (Clozaril) 200 mg QHS PO ; Start 09/13/18 at 21:00; Stop 09/13/18 at 21: 00; Status DC Clozapine (Clozaril) 200 mg QHS PO Last administered on 09/21/18 19:31; Start 09/13/18 at 21:00 Buspirone HCl (Buspar) 10 mg TID PO Last administered on 09/21/18 19:31; Start 09/14/18 at 09:00 Clonazepam (KlonoPIN) 0.5 mg DAILY PO Last administered on 09/21/18 08:36; Start 09/18/18 at 09:00 Active Scripts Active Reported Zyprexa (Olanzapine) 5 Mg Tablet 5 Mg PO BID NICODERM CQ 7mg (Nicotine) 1 Each Patch.td24 1 Patch TD PRN DAILY PRN Trazodone Hcl 50 Mg Tablet 50 Mg PO PRN QHS PRN Risperdal (Risperidone) 1 Mg Tablet 1.5 Mg PO HS Analgesic [place] (Methyl Salicylate/Menthol) 28 Gm Oint...g. 1 Gerri TP PRN QID PRN Milk Of Magnesia (Magnesium Hydroxide) 400 Mg/5 Ml Oral.susp 400 Mg PO PRN DAILY PRN Mag-Al Plus Xs Suspension (Mag Hydrox/Al Hydrox/Simeth) 30 Ml Oral.susp 15 Ml PO PRN AFTMEALHC PRN Buspirone Hcl 10 Mg Tablet 10 Mg PO TID Baclofen 10 Mg Tablet 10 Mg PO QID Gabapentin 100 Mg Capsule 100 Mg PO QID Gabapentin 800 Mg Tablet 800 Mg PO QID Levothyroxine Sodium 50 Mcg Tablet 50 Mcg PO DAILYAC Klonopin (Clonazepam) 0.5 Mg Tablet 1 Mg PO BID Norvasc (Amlodipine Besylate) 10 Mg Tablet 10 Mg PO DAILY Oxybutynin Chloride 5 Mg Tablet 2.5 Mg PO BID Depakote Er (Divalproex Sodium) 500 Mg Tab.er.24h 1,500 Mg PO HS Klor-Con M20 (Potassium Chloride) 20 Meq Tab.er.prt 20 Meq PO DAILY Cymbalta (Duloxetine Hcl) 60 Mg Capsule.dr 60 Mg PO DAILY Multivitamin with Iron Tablet (Multivitamin/Iron/Folic Acid) 1 Each Tablet 1 Tab PO DAILY Flomax (Tamsulosin Hcl) 0.4 Mg Cap.er.24h 0.8 Mg PO DAILY Olanzapine 5 Mg Tablet 2.5 Mg PO PRN Q2HR PRN MDD 10mg/ 24 hrs Remeron (Mirtazapine) 15 Mg Tablet 7.5 Mg PO HS Bisacodyl 10 Mg Supp.rect 10 Mg RC PRN DAILY PRN Tylenol (Acetaminophen) 325 Mg Tablet 650 Mg PO PRN Q6HRS PRN I have reviewed the current psychotropics carefully including drug interactions. Risk benefit ratio favors no change other than as noted in my dictated progress note. Diagnosis: Problems: (1) Depression (2) Schizoaffective disorder (3) Anxiety disorder (4) Impulse control disorder (5) Schizophrenia, paranoid, chronic with acute exacerbation CATHY EMERY MD Sep 21, 2018 22:40
[2018-09-22] MEDS: LEVOTHYROXINE 50 MCG TABLET PO SCH (05:53)
[2018-09-22 05:58] VITALS: BP 117/76
[2018-09-22] MEDS: DOCUSATE SODIUM 100 MG CAPSULE PO SCH (08:31)
[2018-09-22 08:32] VITALS: BP 117/76
[2018-09-22] MEDS: OXYBUTYNIN CHLORIDE 5 MG TABLET PO SCH (08:32)
[2018-09-22] MEDS: MULTIVITAMIN with MINERAL TABLET. PO SCH (08:32)
[2018-09-22] MEDS: amLODIPine BESYLATE 10 MG TABLET PO SCH (08:32)
[2018-09-22] MEDS: POTASSIUM CHLORIDE 20 MEQ TABLET.ER. PO SCH (08:32)
[2018-09-22] MEDS: TAMSULOSIN 0.4 MG CAP.ER.24H. PO SCH (08:32)
[2018-09-22] MEDS: NICOTINE 14MG PATCH. TD SCH (08:33)
[2018-09-22] MEDS: busPIRone 5 MG TABLET. PO SCH ×2 (08:33→13:07)
[2018-09-22] MEDS: POLYETHYLENE GLYCOL 3350 17 GM PACKET. PO SCH (08:33)
[2018-09-22] MEDS: clonazePAM 0.5 MG TABLET PO SCH (08:35)
[2018-09-22] MEDS: GABAPENTIN 300 MG CAPSULE. PO SCH ×2 (08:35→13:07)
[2018-09-22] MEDS: CHOLECALCIFEROL (VITAMIN D3) 50,000 UNIT CAPSULE PO SCH (08:35)
[2018-09-22] MEDS ORDERED: CHOL500021 PO (10:50)
[2018-09-22] MEDS ORDERED: GABA600T7 PO (10:52)
[2018-09-22] MEDS ORDERED: DOCU100C28 PO (10:52)
[2018-09-22] MEDS ORDERED: NICO1PAT25 TD (10:53)
[2018-09-22] MEDS ORDERED: POLY17PO5 PO (10:54)
[2018-09-22] MEDS ORDERED: ONDA4TAB12 PO (10:54)
[2018-09-22] MEDS ORDERED: SIME80TA43 PO (10:55)
[2018-09-22] MEDS ORDERED: CLOZ100T7 PO (10:56)
[2018-09-22] MEDS ORDERED: CLON0.5T11 PO (10:57)
--- NOTE | 2018-09-22 18:48 | PDOC ---
Exam Note: Nguyễn Note: Please also refer to the separate dictated note~for this date of service dictated separately.~Patient seen individually. Discussed the patient with Nursing staff reviewed the chart.~Reviewed interim history and current functioning. Reviewed vital signs,~Labs/ Radiology~and current medications noted below. Continue current treatment with the changes noted in the dictated addendum note Assessment: Vital Signs: Vital Signs Date Time Temp Pulse Resp B/P (MAP) Pulse Ox O2 Delivery O2 Flow Rate FiO2 09/22/18 08:32 96 117/76 09/22/18 05:58 98.2 20 90 09/19/18 06:47 Room Air I&O Intake and Output 09/22/18 07:00 Intake Total 940 ml Balance 940 ml Intake Oral 940 ml Current Medications: Meds: Current Medications Acetaminophen (Tylenol) 650 mg PRN Q6HRS PRN PO PAIN / TEMP Last administered on 09/19/18 12:38; Start 06/21/18 at 20:15; Stop 09/22/18 at 15:20; Status DC Clonazepam (KlonoPIN) 1 mg BID PO Last administered on 08/14/18 19:19; Start 06/21/18 at 21:00; Stop 08/14/18 at 21:25; Status DC Gabapentin (Neurontin) 900 mg QID PO Last administered on 07/08/18at 16:58; Start 06/21/18 at 21:00; Stop 07/08/18 at 17:47; Status DC Al Hydroxide/Mg Hydroxide (Mylanta Plus Xs) 15 ml PRN AFTMEALHC PRN PO GI SYMPTOMS Last administered on 08/22/18 09:18; Start 06/21/18 at 20:15; Stop at 15:20; Status DC Magnesium Hydroxide (Milk Of Magnesia) 400 mg PRN DAILY PRN PO CONSTIPATION Last administered on 09/09/18 14:28; Start 06/21/18 at 20:15; Stop 09/22/18 at 15:20; Status DC Multi-Ingredient Ointment (Analgesic [place]) 1 gerri PRN QID PRN TP MUSCLE PAIN Last administered on 09/04/18 06:17; Start 06/21/18 at 20:15; Stop 09/22/18 at 15:20; Status DC Oxybutynin Chloride (Ditropan) 2.5 mg BID PO Last administered on 09/22/18 08: 32; Start 06/21/18 at 21:00; Stop 09/22/18 at 15:20; Status DC Potassium Chloride (Klor-Con) 20 meq DAILY PO Last administered on 09/22/18 08 :32; Start 06/22/18 at 09:00; Stop 09/22/18 at 15:20; Status DC Tamsulosin HCl (Flomax) 0.8 mg DAILY PO Last administered on 09/22/18 08:32; Start 06/22/18 at 09:00; Stop 09/22/18 at 15:20; Status DC Amlodipine Besylate (Norvasc) 10 mg DAILY PO Last administered on 09/22/18 08: 32; Start 06/22/18 at 09:00; Stop 09/22/18 at 15:20; Status DC Baclofen (Lioresal) 10 mg QID PO Last administered on 07/07/18 19:36; Start 06/21/18 at 21:00; Stop 07/08/18 at 11:48; Status DC Bisacodyl (Dulcolax Supp) 10 mg PRN DAILY PRN [place] CONSTIPATION; Start 06/21/18 at 20:45; Stop 09/22/18 at 15:20; Status DC Buspirone HCl (Buspar) 10 mg TID PO Last administered on 09/13/18 20:51; Start 06/21/18 at 21:00; Stop 09/14/18 at 08:04; Status DC Divalproex Sodium (Depakote Er) 1,500 mg HS PO Last administered on 09/21/18 19:32; Start 06/21/18 at 21:00; Stop 09/22/18 at 15:20; Status DC Non-Formulary Medication (Gabapentin ) 800 mg QID PO ; Start 06/21/18 at 21:00 ; Status UNV Levothyroxine Sodium (Synthroid) 50 mcg DAILY06 PO Last administered on 05:53; Start 06/22/18 at 06:00; Stop 09/22/18 at 15:20; Status DC Multivitamins/ Calcium (Thera-M Plus) 1 tab DAILY PO Last administered on 08:32; Start 06/22/18 at 09:00; Stop 09/22/18 at 15:20; Status DC Olanzapine (ZyPREXA ZYDIS) 2.5 mg PRN Q2HR PRN PO PSYCHOSIS Last administered on 08/10/18 20:19; Start 06/21/18 at 20:45; Stop 09/22/18 at 15:20; Status DC Olanzapine (ZyPREXA) 5 mg BID PO Last administered on 06/23/18at 08:47; Start 06/21/18 at 21:00; Stop 06/23/18 at 17:06; Status DC Risperidone (RisperDAL) 1.5 mg HS PO Last administered on 06/23/18at 19:45; Start 06/21/18 at 21:00; Stop 06/24/18 at 11:06; Status DC Trazodone HCl (Desyrel) 50 mg PRN QHS PRN PO INSOMNIA Last administered on 20:19; Start 06/21/18 at 21:00; Stop 08/10/18 at 21:07; Status DC Nicotine (Nicoderm Cq 7mg) 1 patch PRN DAILY PRN TD SMOKING CESSATION; Start 06/21/18 at 23:30; Stop 07/09/18 at 05:39; Status DC Vitamin D (Vitamin D3) 50,000 unit WEEKLY PO Last administered on 09/22/18at 08: 35; Start 06/23/18 at 16:30; Stop 09/22/18 at 15:20; Status DC Olanzapine (ZyPREXA) 5 mg DAILY PO Last administered on 06/25/18at 08:04; Start 06/24/18 at 09:00; Stop 06/26/18 at 00:00; Status DC Risperidone (RisperDAL) 1.75 mg HS PO Last administered on 07/06/18at 20:08; Start 06/24/18 at 21:00; Stop 07/07/18 at 12:40; Status DC Risperidone (RisperDAL) 2 mg HS PO Last administered on 08/10/18at 20:15; Start 07/07/18 at 21:00; Stop 08/10/18 at 21:07; Status DC Gabapentin (Neurontin) 600 mg QID PO Last administered on 2/13/19at 13:07; Start 07/08/18 at 21:00; Stop 09/22/18 at 15:20; Status DC Nicotine (Nicoderm Cq 21mg) 1 patch DAILY TD Last administered on 07/30/18at 08 :54; Start 07/09/18 at 09:00; Stop 07/31/18 at 04:33; Status DC Clozapine (Clozaril) 25 mg DAILY PO Last administered on 07/27/18at 09:38; Start 07/13/18 at 09:00; Stop 07/27/18 at 16:52; Status DC Vitamin D (Vitamin D3) 50,000 unit WEEKLY PO ; Start 07/24/18 at 09:00; Status Cancel Clozapine (Clozaril) 50 mg DAILY PO Last administered on 08/03/18at 07:51; Start 07/28/18 at 09:00; Stop 08/03/18 at 21:09; Status DC Nicotine (Nicoderm Cq 21mg) 1 patch PRN DAILY PRN TD SMOKING CESSATION Last administered on 08/20/18at 09:30; Start 07/31/18 at 04:45; Stop 08/21/18 at 10: 24; Status DC Clozapine (Clozaril) 75 mg HS PO Last administered on 08/08/18at 19:36; Start 08/04/18 at 21:00; Stop 08/09/18 at 17:33; Status DC Clozapine (Clozaril) 25 mg 1X ONCE PO Last administered on 08/03/18at 21:25; Start 08/03/18 at 21:30; Stop 08/03/18 at 21:31; Status DC Clozapine (Clozaril) 100 mg QHS PO Last administered on 08/15/18at 20:03; Start 08/09/18 at 21:00; Stop 08/16/18 at 16:48; Status DC Risperidone (RisperDAL) 1.5 mg HS PO Last administered on 08/16/18at 19:21; Start 08/11/18 at 21:00; Stop 08/17/18 at 16:27; Status DC Trazodone HCl (Desyrel) 50 mg QHS PO ; Start 08/11/18 at 21:00; Stop 08/11/18 at 21:00; Status DC Ondansetron HCl (Zofran Odt) 4 mg PRN Q8HRS PRN PO NAUSEA/VOMITING Last administered on 08/12/18 11:11; Start 08/12/18 at 10:45; Stop 08/12/18 at 16:29; Status DC Ondansetron HCl (Zofran Odt) 4 mg PRN Q4HRS PRN PO NAUSEA/VOMITING Last administered on 08/13/18 08:20; Start 08/12/18 at 16:30; Stop 09/22/18 at 15:20; Status DC Clonazepam (KlonoPIN) 0.75 mg DAILY PO Last administered on 09/17/18 08:32; Start 08/15/18 at 09:00; Stop 09/17/18 at 17:12; Status DC Clonazepam (KlonoPIN) 1 mg HS PO Last administered on 08/16/18 19:26; Start 08/15/18 at 21:00; Stop 08/16/18 at 21:00; Status DC Clonazepam (KlonoPIN) 0.75 mg HS PO Last administered on 09/21/18 19:41; Start 08/17/18 at 21:00; Stop 09/22/18 at 15:20; Status DC Clozapine (Clozaril) 125 mg QHS PO Last administered on 08/22/18 19:46; Start 08/16/18 at 21:00; Stop 08/23/18 at 16:56; Status DC Iohexol (Omnipaque 300 Mg/ml) 75 ml 1X ONCE IV ; Start 08/16/18 at 18:15; Stop 08/16/18 at 18:16; Status DC Iohexol (Omnipaque 300 Mg/ml) 75 ml 1X ONCE IV Last administered on 08/17/18 09:12; Start 08/17/18 at 08:00; Stop 08/17/18 at 08:01; Status DC Iohexol (Omnipaque 300 Mg/ml) 75 ml 1X ONCE IV ; Start 08/17/18 at 09:00; Stop 08/17/18 at 09:02; Status DC Risperidone (RisperDAL) 1 mg QHS PO Last administered on 08/22/18 19:46; Start 08/17/18 at 21:00; Stop 08/23/18 at 16:56; Status DC Nicotine (Nicoderm Cq 21mg) 1 patch DAILY TD Last administered on 09/05/18 08: 03; Start 08/21/18 at 10:30; Stop 09/06/18 at 02:22; Status DC Clozapine (Clozaril) 150 mg QHS PO Last administered on 09/06/18 19:30; Start 08/23/18 at 21:00; Stop 09/07/18 at 18:46; Status DC Risperidone (RisperDAL) 0.5 mg HS PO Last administered on 09/06/18at 19:30; Start 08/23/18 at 21:00; Stop 09/07/18 at 18:46; Status DC Nicotine (Nicoderm Cq 14mg) 1 patch DAILY TD Last administered on 09/20/18 07: 53; Start 09/06/18 at 09:00; Stop 09/22/18 at 15:20; Status DC Clozapine (Clozaril) 100 mg QHS PO Last administered on 09/12/18 20:05; Start 09/07/18 at 21:00; Stop 09/13/18 at 18:03; Status DC Clozapine (Clozaril) 75 mg QHS PO Last administered on 09/12/18 20:06; Start at 21:00; Stop 09/13/18 at 18:04; Status DC Simethicone (Gas-X) 80 mg PRN AFTMEALHC PRN PO GAS / BLOATING; Start 09/08/18 at 16:30; Stop 09/22/18 at 15:20; Status DC Docusate Sodium (Colace) 100 mg BID PO Last administered on 09/22/18 08:31; Start 09/09/18 at 21:00; Stop 09/22/18 at 15:20; Status DC Polyethylene Glycol (miraLAX) 17 gm DAILY PO Last administered on 09/22/18 08: 33; Start 09/10/18 at 09:00; Stop 09/22/18 at 15:20; Status DC Clozapine (Clozaril) 200 mg QHS PO ; Start 09/13/18 at 21:00; Stop 09/13/18 at 21: 00; Status DC Clozapine (Clozaril) 200 mg QHS PO Last administered on 2/12/19at 19:31; Start 09/13/18 at 21:00; Stop 09/22/18 at 15:20; Status DC Buspirone HCl (Buspar) 10 mg TID PO Last administered on 09/22/18at 13:07; Start 09/14/18 at 09:00; Stop 09/22/18 at 15:20; Status DC Clonazepam (KlonoPIN) 0.5 mg DAILY PO Last administered on 09/22/18at 08:35; Start 09/18/18 at 09:00; Stop 09/22/18 at 15:20; Status DC Active Scripts Active Reported Clozapine 100 Mg Tablet 100 Mg PO QHS Gas Relief (Simethicone) 80 Mg Tab.chew 80 Mg PO PRN AFTMEALHC PRN Miralax (Polyethylene Glycol 3350) 17 Gm Powd.pack 17 Gm PO DAILY Ondansetron Odt (Ondansetron) 4 Mg Tab.rapdis 4 Mg PO PRN Q4HRS PRN NICODERM CQ 14mg (Nicotine) 1 Each Patch.td24 1 Patch TD DAILY Gabapentin 600 Mg Tablet 600 Mg PO QID Docusate Sodium 100 Mg Capsule 100 Mg PO BID D3-50 (Cholecalciferol (Vitamin D3)) 50,000 Unit Capsule 50,000 Unit PO WEEKLY Analgesic [place] (Methyl Salicylate/Menthol) 28 Gm Oint...g. 1 Gerri TP PRN QID PRN Milk Of Magnesia (Magnesium Hydroxide) 400 Mg/5 Ml Oral.susp 400 Mg PO PRN DAILY PRN Mag-Al Plus Xs Suspension (Mag Hydrox/Al Hydrox/Simeth) 30 Ml Oral.susp 15 Ml PO PRN AFTMEALHC PRN Buspirone Hcl 10 Mg Tablet 10 Mg PO TID Levothyroxine Sodium 50 Mcg Tablet 50 Mcg PO DAILY06 Klonopin (Clonazepam) 0.5 Mg Tablet 0.5 Mg PO DAILY Norvasc (Amlodipine Besylate) 10 Mg Tablet 10 Mg PO DAILY Oxybutynin Chloride 5 Mg Tablet 2.5 Mg PO BID Depakote Er (Divalproex Sodium) 500 Mg Tab.er.24h 1,500 Mg PO HS Klor-Con M20 (Potassium Chloride) 20 Meq Tab.er.prt 20 Meq PO DAILY Multivitamin with Iron Tablet (Multivitamin/Iron/Folic Acid) 1 Each Tablet 1 Tab PO DAILY Flomax (Tamsulosin Hcl) 0.4 Mg Cap.er.24h 0.8 Mg PO DAILY Olanzapine 5 Mg Tablet 2.5 Mg PO PRN Q2HR PRN MDD 10mg/ 24 hrs Bisacodyl 10 Mg Supp.rect 10 Mg RC PRN DAILY PRN Tylenol (Acetaminophen) 325 Mg Tablet 650 Mg PO PRN Q6HRS PRN Clonazepam 0.5 Mg Tablet 0.75 Mg PO QHS I have reviewed the current psychotropics carefully including drug interactions. Risk benefit ratio favors no change other than as noted in my dictated progress note. Diagnosis: Problems: (1) Schizophrenia, paranoid, chronic with acute exacerbation (2) Impulse control disorder (3) Anxiety disorder (4) Schizoaffective disorder (5) Depression CATHY EMERY MD Sep 22, 2018 18:48
--- NOTE | 2018-09-22 22:02 | PN ---
DATE: 09/21/2018 PSYCHIATRIC PROGRESS NOTE This late entry 09/21/2017 covers elements not covered in my initial note. SUBJECTIVE: I met with the patient in the evening. The patient slept 8-1/4 hours previous night. I met with him at some length in his room. Overall, he has been pleasant, somewhat withdrawn. REVIEW OF SYSTEMS: Ambulation impaired with walker. No CV, , pulmonary, eye, ENT system symptoms on review. MENTAL STATUS EXAM: Oriented to reasonably. Speech coherent, has some latency. Abstraction fair, computation impaired, language function intact, attention span short. Mood and affect still withdrawn, but improved. LABORATORY DATA: Reviewed. IMPRESSION: Unchanged from initial note. PLAN: Discussed with him at length about discharge plans tentatively to a nursing facility later this week. He has been screened by a couple of facilities. Discussed with social service staff as well. MAN Ty EMERY MD DR: SARINA/nilda JOB#: [id number] / [id number]
--- NOTE | 2018-09-24 13:01 | DS ---
DATE OF DISCHARGE: 09/22/2018 PSYCHIATRIC DISCHARGE SUMMARY This is a late entry, date of service 09/22/2018, covers elements not covered in my initial note. IDENTIFYING DATA: The patient is a 58-year-old male referred to us from [facility] by Dr. Subramanian, his psychiatrist and his primary care physician on account of worsening symptoms of his schizoaffective disorder, bipolar type. The patient apparently eloped from the facility by crawling out of the window. He was paranoid, psychotic, hallucinating, delusional, extremely suspicious, hiding under his bed thinking that people were trying to kill him. He was on the local news, television news with alerts being posted everywhere to try and locate him since he was ambulating with a walker and there is a lot of snow on the ground with freezing temperatures. He was ultimately recovered, felt to need inpatient psychiatric stabilization and referred to us for inpatient stabilization. SIGNIFICANT FINDINGS AND CLINICAL COURSE: Following admission, the patient was seen daily individually by myself, followed medically per Dr. Rios. He was extremely paranoid, suspicious, anxious, minimize much of what he had done, oblivious of extreme danger to his life from his actions. He was quite psychotic. Adjustments were made in his psychotropics and it was decided to initiate treatment on Clozaril and gradually taper the rest of his atypical antipsychotics. Clozaril was gradually increased to 200 mg at bedtime with weekly blood counts and monitoring absolute neutrophil counts to remain normal. He seemed to stabilize on a combination of this and BuSpar 10 mg t.i.d., Klonopin 0.5 mg daily, 0.75 mg at bedtime; Zyprexa p.r.n., Depakote ER 1500 mg at bedtime with therapeutic valproic acid level of 66, gabapentin 600 mg 4 times a day. The patient's hospitalization was very lengthy consequent to stabilizing his Clozaril dosage in increments of 25 mg a day to be increased every week following blood counts while reducing the atypical antipsychotics he was taking previously and also because the social service staff worked diligently, persistently and with multiple agencies to find placement for him secure appropriate funding for this get back on track the money he was getting from social security and other psychosocial factors to get into a safe place where he could stay post-discharge, prior to discharge on 09/22/2018. REVIEW OF SYSTEMS: Ambulation impaired with walker. No CV, , pulmonary, eye, ENT system symptoms on review. MENTAL STATUS EXAM: Reasonably oriented. Speech is coherent, at times has some latency. Abstraction fair, computation impaired, language function intact, attention span short. Mood and affect somewhat withdrawn, but psychotic symptoms appear to have subsided. No active suicidal or homicidal ideation prior to discharge and he was much more insightful about maintaining safety and not absconding from facilities. CONDITION AT DISCHARGE: Improved. FINAL DIAGNOSES: Schizoaffective disorder, bipolar type, mixed with psychotic features, in partial remission; anxiety disorder, unspecified; impulse control disorder, unspecified. Rest unchanged from admission. DISCHARGE MEDICATIONS: Please refer to the [facility]. DISCHARGE INSTRUCTIONS: [facility]. Time for discharge day management greater than 30 minutes. MAN Ty EMERY MD DR: SARINA/nilda JOB#: [id number] / [id number]
== END 2018-09-22 15:00 | DRG 885 ==
LOC: ER 16:58 → GEROPSY 18:00 → ER 18:30
PROVIDERS: ADMIT Psychiatry & Neurology Psychiatry; ATTEND Psychiatry & Neurology Psychiatry
DX: F25.0 Schizoaffective disorder, bipolar type (principal); F63.9 Impulse disorder, unspecified; N40.0 Benign prostatic hyperplasia without lower urinary tract symptoms; F90.9 Attention-deficit hyperactivity disorder, unspecified type; E03.9 Hypothyroidism, unspecified; M48.00 Spinal stenosis, site unspecified; K59.09 Other constipation; G47.00 Insomnia, unspecified; G62.9 Polyneuropathy, unspecified; I10 Essential (primary) hypertension; Z79.899 Other long term (current) drug therapy; Z87.891 Personal history of nicotine dependence
CPT/HCPCS: 36415; 70450; 71045; 71275; 80053; 80061; 80164; 80307; 81001; 82306; 82607; 82803; 83036; 83540; 83550; 83605; 83735; 83880; 84436; 84443; 84480; 85025; 86592; 93005; 99407; Q0162; Q9967; 92610